=== PATIENT | male | born 1980 | race African-American/Black ===

== ENCOUNTER → 2019-10-05 | Emergency (ER) | payer SELFPAY ==
[~2019-10-05] VITALS: Ht 175 cm; Wt 76.1 kg
[~2019-10-05] MED LIST: DOXY100T2 PO; DOXYCYCLINE 100 MG (VIBRAMYCIN) TABLET PO ONE; KETOROLAC 30 MG/ML VIAL IM ONE; KETOROLAC 30 MG/ML VIAL ONE; LIDOCAINE 1% INJ 20 ML 20 ML VIAL INJ ONE; cefTRIAXone 1,000 MG/2.86 ml vial (IM ONLY) IM ONE
--- OUTSIDE RECORDS SUMMARY | 2019-10-05 23:02 | XMS REPORT ---
Author Author Nuno MCDANIEL Organization [facility] Address [address] [place] [address] Care Team Providers Care Hydro Plant Technician Name Role Phone BASSEM MCDANIEL Unavailable PROBLEMS Type Condition ICD9-CM Code HRY28-SW Code Onset Dates Condition S tatus SNOMED Code Problem Asthma, unspecified, unspecified status 493.90 Active 42524773 Problem Essential hypertension, benign 401.1 Active 9481817 Problem Mood disorder F39 Active 054811 05 Problem Essential (primary) hypertension I10 Active 96026039 Problem Allergic rhinitis, cause unspecified 477.9 Active 12514537 Problem Anxiety state, unspecified 300.00 Act katharine 783800214 Problem Unspecified episodic mood disorder 296.90 Active 880958059 Problem Allergic rhinitis, unspecified J30.9 Active 15282797 ALLERGIES No Information ENCOUNTERS Encounter Location Date Diagnosis [facility] [address] [address] May, Mood disorder F39 [facility] [address], [place] [address] 57 19 Apr, 2018 Bronchitis J40 [facility] [address] [address] 14 Apr, 2018 Mood disorder F39 [facility] [address] [address] Mar, Pain R52 [facility] [address] [address] Mar, Pain R52 [facility] [address] [address] Mar, [facility] [address] [address] Feb, [facility] [address] [address] Feb, Mood disorder F39 [facility] [address] [id number] [place] [address] Feb, Pain R52 [facility] [address] [id number] [place] [address] Feb, Mood disorder F39 [facility] [address] [id number] [place] [address] Dec, Mood disorder F39 [facility] [id number] [place] [address] Dec, Mood disorder F39 [facility] [id number] [place] [address] Dec, Essential (primary) hypertension I10 [facility] [id number] [place] [address] Dec, Mood disorder F39 [facility] [id number] [place] [address] Nov, [facility] [address] [id number] [place] [address] Nov, Allergic rhinitis, unspecified J30.9 [facility] [id number] [place] [address] 14 Jun, 2014 [facility] [id number] [place] [address] Jun, [facility] [id number] [place] [address] Nov, [facility] [address] [id number] [place] [address] 09 Nov, 2013 [facility] [address], [place] [id number] 57 Nov, [facility] [id number] [place] [address] Nov, [facility] [id number] [place] [address] July, [facility] [id number] [place] [address] July, [facility] [address], [place] [id number] 57 Jun, [facility] [address] [id number] [place] [address] Jun, [facility] [address] [id number] [place] [address] Feb, [facility] [id number] [place] [address] Feb, [facility] [address] [id number] [place] [address] Feb, [facility] [id number] [place] [address] Feb, [facility] [address] [id number] [place] [address] Jan, [facility] [address] [id number] [place] [address] Jan, [facility] [address], [place] [id number] 57 Dec, [facility] [id number] [place] [address] Dec, IMMUNIZATIONS No Known Immunizations SOCIAL HISTORY Never Assessed REASON FOR VISIT PLAN OF CARE VITAL SIGNS Height 68 in 2013-06-21 Weight 181 lbs 2013-06-21 Temperature 97.3 degrees Fahrenheit 2013-06-21 Heart Rate 60 bpm 2013-06-21 Respiratory Rate 16 2013-06-21 Blood pressure systolic 122 mmHg 2013-06-21 Blood pressure diastolic 80 mmHg 2013-06-21 MEDICATIONS Unknown Medications RESULTS No Results PROCEDURES No Known procedures INSTRUCTIONS MEDICATIONS ADMINISTERED No Known Medications
--- OUTSIDE RECORDS SUMMARY | 2019-10-05 23:02 | XMS REPORT ---
Author Author Nuno MCDANIEL Organization [facility] Address [address] [place] [address] Care Team Providers Care Reproductive Surgeon Name Role Phone BASSEM MCDANIEL Unavailable PROBLEMS Type Condition ICD9-CM Code AOS58-BD Code Onset Dates Condition S tatus SNOMED Code Problem Asthma, unspecified, unspecified status 493.90 Active 33593319 Problem Essential hypertension, benign 401.1 Active 9926214 Problem Mood disorder F39 Active 667312 05 Problem Essential (primary) hypertension I10 Active 51040346 Problem Allergic rhinitis, cause unspecified 477.9 Active 15705416 Problem Anxiety state, unspecified 300.00 Act katharine 299599029 Problem Unspecified episodic mood disorder 296.90 Active 143401922 Problem Allergic rhinitis, unspecified J30.9 Active 62240937 ALLERGIES No Information ENCOUNTERS Encounter Location Date Diagnosis [facility] [address] [facility] [id number] [address] [place] [address] May, Mood disorder F39 [facility] [address] [place], [place] [id number] 57 19 Apr, 2018 Bronchitis J40 [facility] [address] [facility] [id number] [address] [place] [phone] 14 Apr, 2018 Mood disorder F39 [facility] [address] [facility] [id number] [address] [place] [phone] Mar, Pain R52 [facility] [address] [facility] [id number] [address] [place] [address] Mar, Pain R52 [facility] [address] [facility] [id number] [address] [place] [phone] Mar, [facility] [address] [facility] [id number] [address] [place] [phone] Feb, [facility] [address] [id number] [address] [place] [phone] Feb, Mood disorder F39 [facility] [address] [id number] [address] [place] [phone] Feb, Pain R52 [facility] [address] [id number] [address] [place] [phone] Feb, Mood disorder F39 [facility] [address] [id number] [address] [place] [phone] Dec, Mood disorder F39 [facility] [address] [facility] [id number] [address] [place] [phone] Dec, Mood disorder F39 [facility] [address] [facility] [id number] [address] [place] [phone] Dec, Essential (primary) hyperten shelli I10 [facility] [address] [facility] [id number] [address] [place] [phone] Dec, Mood disorder F39 [facility] [address] [id number] [address] [place] [phone] Nov, [facility] [address] [facility] [id number] [address] [place] [phone] Nov, Allergic rhinitis, unspecifi ed J30.9 [facility] [address] [facility] [id number] [address] [place] [phone] 14 Jun, 2014 [facility] [address] [facility] [id number] [address] [place] [phone] 13 Jun, 2014 [facility] [address] [facility] [id number] [address] [place] [phone] Nov, [facility] [address] [facility] [id number] [address] [place] [phone] Nov, [facility] [address], [place] [id number] 57 Nov, [facility] [address] [facility] [id number] [address] [place] [phone] Nov, [facility] [address] [id number] [address] [place] [phone] July, [facility] [address] [id number] [address] [place] [phone] July, [facility] [address], [place] [id number] 57 Jun, [facility] [address] [id number] [address] [place] [phone] Jun, [facility] [address] [id number] [address] [place] [phone] Feb, [facility] [address] [id number] [address] [place] [phone] Feb, [facility] [address] [id number] [address] [place] [phone] Feb, [facility] [address] [id number] [address] [place] [phone] Feb, [facility] [address] [id number] [address] [place] [phone] Jan, [facility] [address] [id number] [address] [place] [phone] Jan, [facility] [address], [place] [id number] 57 Dec, [facility] [address] [id number] [address] [place] [phone] Dec, IMMUNIZATIONS No Known Immunizations SOCIAL HISTORY Never Assessed REASON FOR VISIT PLAN OF CARE VITAL SIGNS Height 68 in 2013-11-08 Weight 158 lbs 2013-11-08 Temperature 96.9 degrees Fahrenheit 2013-11-08 Heart Rate 60 bpm 2013-11-08 Respiratory Rate 16 2013-11-08 Blood pressure systolic 144 mmHg 2013-11-08 Blood pressure diastolic 90 mmHg 2013-11-08 MEDICATIONS Unknown Medications RESULTS No Results PROCEDURES No Known procedures INSTRUCTIONS MEDICATIONS ADMINISTERED No Known Medications
--- OUTSIDE RECORDS SUMMARY | 2019-10-05 23:02 | XMS REPORT ---
Author Author Nuno MCDANIEL Organization [facility] Address [address] [place] [address] Care Team Providers Care Clerk General Office Name Role Phone BASSEM MCDANIEL Unavailable PROBLEMS Type Condition ICD9-CM Code ZGI29-AC Code Onset Dates Condition S tatus SNOMED Code Problem Essential hypertension, benign 401.1 Active 9447274 Problem Asthma, unspecified, unspecified status 493.90 Active 87952633 Problem Essential (primary) hypertension I10 Active 37604278 Problem Mood disorder F39 Active 567702 05 Problem Anxiety state, unspecified 300.00 Act katharine 511220989 Problem Allergic rhinitis, cause unspecified 477.9 Active 12701922 Problem Allergic rhinitis, unspecified J30.9 Active 07343670 Problem Unspecified episodic mood disorder 296.90 Active 769091487 ALLERGIES No Known Allergies ENCOUNTERS Encounter Location Date Diagnosis [facility] [address] [facility] [id number] [address] [place] [phone] Feb, Pain R52 [facility] [address] [facility] [id number] [address] [place] [phone] Feb, Mood disorder F39 [facility] [address] [facility] [id number] [address] [place] [phone] Dec, Mood disorder F39 [facility] [address] [id number] [address] [place] [phone] Dec, Mood disorder F39 [facility] [address] [facility] [id number] [address] [place] [phone] Dec, Essential (primary) hyperten shelli I10 [facility] [address] [facility] [id number] [address] [place] [phone] Dec, Mood disorder F39 [facility] [address] [facility] [id number] [address] [place] [address] Nov, [facility] [address] [id number] [address] [place] [phone] 11 Nov, 2017 Allergic rhinitis, unspecifi ed J30.9 [facility] [address] [id number] [address] [place] [address], [place] [address] 14 Jun, 2014 [facility] [address] [id number] [address] [place] [phone] Jun, [facility] [address] [id number] [address] [place] [phone] 09 Nov, 2013 [facility] [address] [id number] [address] [place] [phone] 09 Nov, 2013 [facility] [address] [place], [place] [id number] 57 Nov, [facility] [address] [id number] [address] [place] [phone] Nov, [facility] [address] [id number] [address] [place] [phone] July, [facility] [address] [id number] [address] [place] [phone] July, [facility] [address] [place], [place] [id number] 57 15 Jun, 2013 [facility] [address] [id number] [address] [place] [phone] Jun, [facility] [address] [id number] [address] [place] [phone] Feb, [facility] [address] [id number] [address] [place] [phone] Feb, [facility] [address] [id number] [address] [place] [phone] Feb, [facility] [address] [id number] [address] [place] [phone] Feb, [facility] [address] [id number] [address] [place] [phone] Jan, [facility] [address] [facility] [id number] [address] [place] [phone] Jan, [facility] [address] [place], [place] [id number] 57 Dec, [facility] [address] [facility] [id number] [address] [place] [address] Dec, IMMUNIZATIONS No Known Immunizations SOCIAL HISTORY Never Assessed REASON FOR VISIT Usp RX PLAN OF CARE VITAL SIGNS MEDICATIONS Medication Instructions Dosage Frequency Start Date End Date Duration S yesenia Trazodone HCl 150 MG Orally at bedtime 1 tablet at bedtime 2 5 Nov, 2017 30 day(s) Active RESULTS No Results PROCEDURES No Known procedures INSTRUCTIONS MEDICATIONS ADMINISTERED No Known Medications
--- OUTSIDE RECORDS SUMMARY | 2019-10-05 23:02 | XMS REPORT ---
Author Author Nuno MCDANIEL Organization [facility] Address [address] [place] [address] Care Team Providers Care Farm Demonstrator Name Role Phone BASSEM MCDANIEL Unavailable PROBLEMS Type Condition ICD9-CM Code HCW50-YT Code Onset Dates Condition S tatus SNOMED Code Problem Asthma, unspecified, unspecified status 493.90 Active 68821573 Problem Essential hypertension, benign 401.1 Active 5647784 Problem Mood disorder F39 Active 198450 05 Problem Essential (primary) hypertension I10 Active 89459869 Problem Allergic rhinitis, cause unspecified 477.9 Active 26284769 Problem Anxiety state, unspecified 300.00 Act katharine 364686459 Problem Unspecified episodic mood disorder 296.90 Active 192465783 Problem Allergic rhinitis, unspecified J30.9 Active 74892613 ALLERGIES No Information ENCOUNTERS Encounter Location Date Diagnosis [facility] [address] [facility] [id number] [address] [place] [phone] May, Mood disorder F39 [facility] [address] [place], [place] [id number] 57 19 Apr, 2018 Bronchitis J40 [facility] [address] [facility] [id number] [address] [place] [phone] 14 Apr, 2018 Mood disorder F39 [facility] [address] [facility] [id number] [address] [place] [phone] Mar, Pain R52 [facility] [address] [facility] [id number] [address] [place] [phone] Mar, Pain R52 [facility] [address] [facility] [id number] [address] [place] [phone] Mar, [facility] [address] [facility] [id number] [address] [place] [phone] Feb, [facility] [address] [id number] [address] [place] [phone] Feb, Mood disorder F39 [facility] [address] [id number] [address] [place] [phone] Feb, Pain R52 [facility] [address] [id number] [address] [place] [phone] Feb, Mood disorder F39 [facility] [address] [id number] [address] [place] [phone] Dec, Mood disorder F39 [facility] [address] [facility] [id number] [address] [place] [phone] Dec, Mood disorder F39 [facility] [address] [facility] [id number] [address] [place] [phone] Dec, Essential (primary) hyperten shelli I10 [facility] [address] [facility] [id number] [address] [place] [phone] Dec, Mood disorder F39 [facility] [address] [id number] [address] [place] [phone] Nov, [facility] [address] [facility] [id number] [address] [place] [phone] Nov, Allergic rhinitis, unspecifi ed J30.9 [facility] [address] [facility] [id number] [address] [place] [phone] 14 Jun, 2014 [facility] [address] [facility] [id number] [address] [place] [phone] 13 Jun, 2014 [facility] [address] [facility] [id number] [address] [place] [phone] Nov, [facility] [address] [facility] [id number] [address] [place] [phone] Nov, [facility] [address] [place], [place] [id number] 57 Nov, [facility] [address] [facility] [id number] [address] [place] [phone] Nov, [facility] [address] [id number] [address] [place] [phone] July, [facility] [address] [id number] [address] [place] [phone] July, [facility] [address] [place] [id number] 57 Jun, [facility] [address] [id number] [address] [place] [phone] Jun, [facility] [address] [id number] [address] [place] [phone] Feb, [facility] [address] [id number] [address] [place] [phone] Feb, [facility] [address] [id number] [address] [place] [phone] Feb, [facility] [address] [id number] [address] [place] [phone] Feb, [facility] [address] [id number] [address] [place] [phone] Jan, [facility] [address] [id number] [address] [place] [phone] Jan, [facility] [address] [facility] [place] [id number] 57 Dec, [facility] [address] [id number] [address] [place] [phone] Dec, IMMUNIZATIONS No Known Immunizations SOCIAL HISTORY Never Assessed REASON FOR VISIT PLAN OF CARE VITAL SIGNS MEDICATIONS Unknown Medications RESULTS No Results PROCEDURES No Known procedures INSTRUCTIONS MEDICATIONS ADMINISTERED No Known Medications
--- OUTSIDE RECORDS SUMMARY | 2019-10-05 23:02 | XMS REPORT ---
Author Author Nuno MCDANIEL Organization [facility] Address [address] [place] [address] Care Team Providers Care Restaurant And Bar Manager Name Role Phone BASSEM MCDANIEL Unavailable PROBLEMS Type Condition ICD9-CM Code [id number] Code Onset Dates Condition S tatus SNOMED Code Problem Asthma, unspecified, unspecified status 493.90 Active 88919491 Problem Essential hypertension, benign 401.1 Active 0940115 Problem Mood disorder F39 Active 008435 05 Problem Essential (primary) hypertension I10 Active 01554074 Problem Allergic rhinitis, cause unspecified 477.9 Active 12537100 Problem Anxiety state, unspecified 300.00 Act katharine [id number] Problem Unspecified episodic mood disorder 296.90 Active 716966081 Problem Allergic rhinitis, unspecified J30.9 Active 70698938 ALLERGIES No Information ENCOUNTERS Encounter Location Date Diagnosis [facility] [address] [id number] [address] [place] [phone] May, Mood disorder F39 [facility] [address] [place], [place] [id number] 57 19 Apr, 2018 Bronchitis J40 [facility] [address] [id number] [address] [place] [phone] 14 Apr, 2018 Mood disorder F39 [facility] [address] [id number] [address] [place] [phone] Mar, Pain R52 [facility] [address] [id number] [address] [place] [phone] Mar, Pain R52 [facility] [address] [id number] [address] [place] [phone] Mar, [facility] [address] [id number] [address] [place] [address] Feb, [facility] [address] [id number] [address] [place] [phone] Feb, Mood disorder F39 [facility] [address] [id number] [address] [place] [phone] Feb, Pain R52 [facility] [address] [id number] [address] [place] [phone] Feb, Mood disorder F39 [facility] [address] [id number] [address] [place] [phone] Dec, Mood disorder F39 [facility] [address] [id number] [address] [place] [phone] Dec, Mood disorder F39 [facility] [address] [id number] [address] [place] [phone] Dec, Essential (primary) hyperten shelli I10 [facility] [address] [id number] [address] [place] [phone] Dec, Mood disorder F39 [facility] [address] [id number] [address] [place] [id number] Nov, [facility] [address] [id number] [address] [place] [phone] Nov, Allergic rhinitis, unspecifi ed J30.9 [facility] [address] [id number] [address] [place] [address] 14 Jun, 2014 [facility] [address] [id number] [address] [place] [phone] 13 Jun, 2014 [facility] [address] [id number] [address] [place] [phone] Nov, [facility] [address] [id number] [address] [place] [phone] Nov, [facility] [address], [place] [id number] 57 Nov, [facility] [address] [id number] [address] [place] [address] Nov, [facility] [address] [id number] [address] [place] [phone] July, [facility] [address] [id number] [address] [place] [phone] July, [facility] [address] [place] [id number] 57 Jun, [facility] [address] [id number] [address] [place] [phone] Jun, [facility] [address] [id number] [address] [place] [phone] Feb, [facility] [address] [id number] [address] [place] [phone] Feb, [facility] [address] [id number] [address] [place] [phone] Feb, [facility] [address] [id number] [address] [place] [phone] Feb, [facility] [address] [id number] [address] [place] [phone] Jan, [facility] [address] [id number] [address] [place] [phone] Jan, [facility] [address] [facility] [id number] 57 Dec, [facility] [address] [id number] [address] [place] [phone] Dec, IMMUNIZATIONS No Known Immunizations SOCIAL HISTORY Never Assessed REASON FOR VISIT PLAN OF CARE VITAL SIGNS MEDICATIONS Unknown Medications RESULTS No Results PROCEDURES No Known procedures INSTRUCTIONS MEDICATIONS ADMINISTERED No Known Medications
--- OUTSIDE RECORDS SUMMARY | 2019-10-05 23:02 | XMS REPORT ---
Author Author Nuno MCDANIEL Organization [facility] Address [address] [place] [address] Care Team Providers Care Medical Device Assembler Name Role Phone BASSEM MCDANIEL Unavailable PROBLEMS Type Condition ICD9-CM Code [id number] Code Onset Dates Condition S tatus SNOMED Code Problem Essential hypertension, benign 401.1 Active 9492034 Problem Asthma, unspecified, unspecified status 493.90 Active 39150567 Problem Essential (primary) hypertension I10 Active 07328083 Problem Mood disorder F39 Active 705746 05 Problem Anxiety state, unspecified 300.00 Act katharine 034116322 Problem Allergic rhinitis, cause unspecified 477.9 Active 90683997 Problem Allergic rhinitis, unspecified J30.9 Active 67573895 Problem Unspecified episodic mood disorder 296.90 Active 434813092 ALLERGIES No Known Allergies ENCOUNTERS Encounter Location Date Diagnosis [facility] [address] [facility] [id number] [address] [place] [phone] Feb, Pain R52 [facility] [address] [facility] [id number] [address] [place] [phone] Feb, Mood disorder F39 [facility] [address] [facility] [id number] [address] [place] [phone] Dec, Mood disorder F39 [facility] [address] [id number] [address] [place] [phone] Dec, Mood disorder F39 [facility] [address] [facility] [id number] [address] [place] [phone] Dec, Essential (primary) hyperten shelli I10 [facility] [address] [facility] [id number] [address] [place] [phone] Dec, Mood disorder F39 [facility] [address] [facility] [id number] [address] [place] [phone] Nov, [facility] [address] [id number] [address] [place] [phone] 11 Nov, 2017 Allergic rhinitis, unspecifi ed J30.9 [facility] [address] [id number] [address] [place] [address], [place] [phone] 14 Jun, 2014 [facility] [address] [id number] [address] [place] [phone] Jun, [facility] [address] [id number] [address] [place] [phone] 09 Nov, 2013 [facility] [address] [id number] [address] [place] [phone] 09 Nov, 2013 [facility] [address] [place], [place] [id number] 57 Nov, [facility] [address] [id number] [address] [place] [phone] Nov, [facility] [address] [id number] [address] [place] [phone] July, [facility] [address] [id number] [address] [place] [phone] July, [facility] [address] [place], [place] [id number] 57 15 Jun, 2013 [facility] [address] [id number] [address] [place] [phone] Jun, [facility] [address] [id number] [address] [place] [phone] Feb, [facility] [address] [id number] [address] [place] [phone] Feb, [facility] [address] [id number] [address] [place] [phone] Feb, [facility] [address] [id number] [address] [place] [phone] Feb, [facility] [address] [id number] [address] [place] [phone] Jan, [facility] [address] [facility] [id number] [address] [place] [phone] Jan, [facility] [address] [place], [place] [id number] 57 Dec, [facility] [address] [facility] [id number] [address] [place] [phone] Dec, IMMUNIZATIONS No Known Immunizations SOCIAL HISTORY Never Assessed REASON FOR VISIT [facility] rx PLAN OF CARE VITAL SIGNS MEDICATIONS Medication Instructions Dosage Frequency Start Date End Date Duration S yesenia Naproxen 500 MG Orally 2 times a day 1 tablet with food or milk as needed 12h 11 Feb, 2018 Active RESULTS No Results PROCEDURES No Known procedures INSTRUCTIONS MEDICATIONS ADMINISTERED No Known Medications
--- OUTSIDE RECORDS SUMMARY | 2019-10-05 23:02 | XMS REPORT ---
Author Author Nuno Busby Doctor Organization [facility] Address Unknown Phone Unavailable Care Team Providers Care Near East Archeology Professor Name Role Phone Migration, Doctor Unavailable Unavailable PROBLEMS Type Condition ICD9-CM Code FNF21-CP Code Onset Dates Condition S tatus SNOMED Code Problem Asthma, unspecified, unspecified status 493.90 Active 58210319 Problem Essential hypertension, benign 401.1 Active 6686036 Problem Mood disorder F39 Active 352908 05 Problem Essential (primary) hypertension I10 Active 06260371 Problem Allergic rhinitis, cause unspecified 477.9 Active 56614306 Problem Anxiety state, unspecified 300.00 Act katharine 488819452 Problem Unspecified episodic mood disorder 296.90 Active 958849669 Problem Allergic rhinitis, unspecified J30.9 Active 42846236 ALLERGIES No Information ENCOUNTERS Encounter Location Date Diagnosis [facility] [address] [id number] [address] [place] [phone] May, Mood disorder F39 [facility] [address] [place], [place] [id number] 57 19 Apr, 2018 Bronchitis J40 [facility] [address] [id number] [address] [place] [phone] 14 Apr, 2018 Mood disorder F39 [facility] [address] [facility] [id number] [address] [place] [phone] Mar, Pain R52 [facility] [address] [facility] [id number] [address] [place] [phone] Mar, Pain R52 [facility] [address] [facility] [id number] [address] [place] [phone] Mar, [facility] [address] [facility] [id number] [address] [place] [phone] Feb, [facility] [address] [facility] [id number] [address] [place] [phone] Feb, Mood disorder F39 [facility] [address] [id number] [address] [place] [phone] Feb, Pain R52 [facility] [address] [id number] [address] [place] [phone] Feb, Mood disorder F39 [facility] [address] [id number] [address] [place] [phone] Dec, Mood disorder F39 [facility] [address] [id number] [address] [place] [phone] Dec, Mood disorder F39 [facility] [address] [id number] [address] [place] [phone] Dec, Essential (primary) hyperten shelli I10 [facility] [address] [facility] [id number] [address] [place] [phone] Dec, Mood disorder F39 [facility] [address] [id number] [address] [place] [phone] Nov, [facility] [address] [facility] [id number] [address] [place] [phone] Nov, Allergic rhinitis, unspecifi ed J30.9 [facility] [address] [facility] [id number] [address] [place] [phone] 14 Jun, 2014 [facility] [address] [facility] [id number] [address] [place] [phone] 13 Jun, 2014 [facility] [address] [facility] [id number] [address] [place] [phone] 09 Nov, 2013 [facility] [address] [facility] [id number] [address] [place] [phone] 09 Nov, 2013 [facility] [address] [place], [place] [id number] 57 02 Nov, 2013 [facility] [address] [facility] [id number] [address] [place] [phone] Nov, [facility] [address] [facility] [id number] [address] [place] [phone] July, [facility] [address] [id number] [address] [place] [phone] July, [facility] [address] [place] [id number] 57 Jun, [facility] [address] [id number] [address] [place] [phone] Jun, [facility] [address] [id number] [address] [place] [phone] Feb, [facility] [address] [id number] [address] [place] [phone] Feb, [facility] [address] [id number] [address] [place] [phone] Feb, [facility] [address] [id number] [address] [place] [phone] Feb, [facility] [address] [id number] [address] [place] [phone] Jan, [facility] [address] [id number] [address] [place] [phone] Jan, [facility] [address] [place] [place] [id number] 57 Dec, [facility] [address] [id number] [address] [place] [phone] Dec, IMMUNIZATIONS No Known Immunizations SOCIAL HISTORY Never Assessed REASON FOR VISIT [facility] [place] OF CARE VITAL SIGNS MEDICATIONS Medication Instructions Dosage Frequency Start Date End Date Duration S kayley Loratadine 10 mg take 1 tablet by Oral route 1 time pe r day take at hs Nov, Active Flonase 50 mcg/actuation 1 sprays by Amadou al route 2 times per day in each nostril Nov, Active Albuterol Sulfate 90 mcg/actuation 2 puf fs by Inhalation route every 6 hours as needed PRN cough or wheezing Nov, Active Lisinopril 10 mg take 1 tablet by Oral route 1 time pe r day Take in am Nov, Active BuPROPion HCl 150 mg take 1 tablet (150 mg) by oral ro emmonak 2 times per day Nov, Active PredniSONE 20 mg 2 tablet by Oral route 1 time per day for 5 day(s) Jan, Active RESULTS No Results PROCEDURES No Known procedures INSTRUCTIONS MEDICATIONS ADMINISTERED No Known Medications
--- OUTSIDE RECORDS SUMMARY | 2019-10-05 23:02 | XMS REPORT ---
Author Author Nuno MCDANIEL Organization [facility] Address [address] [place] [address] Care Team Providers Care Hadoop Java Developer Name Role Phone BASSEM MCDANIEL Unavailable PROBLEMS Type Condition ICD9-CM Code VHJ15-OC Code Onset Dates Condition S tatus SNOMED Code Problem Essential hypertension, benign 401.1 Active 2434056 Problem Asthma, unspecified, unspecified status 493.90 Active 05073661 Problem Essential (primary) hypertension I10 Active 94289020 Problem Mood disorder F39 Active 340698 05 Problem Anxiety state, unspecified 300.00 Act katharine 733873212 Problem Allergic rhinitis, cause unspecified 477.9 Active 69452955 Problem Allergic rhinitis, unspecified J30.9 Active 88647056 Problem Unspecified episodic mood disorder 296.90 Active 942670379 ALLERGIES No Known Allergies ENCOUNTERS Encounter Location Date Diagnosis [facility] [address] [facility] [id number] [address] [place] [phone] Feb, Mood disorder F39 [facility] [address] [facility] [id number] [address] [place] [phone] Feb, Pain R52 [facility] [address] [facility] [id number] [address] [place] [phone] Feb, Mood disorder F39 [facility] [address] [facility] [id number] [address] [place] [phone] Dec, Mood disorder F39 [facility] [address] [facility] [id number] [address] [place] [phone] Dec, Mood disorder F39 [facility] [address] [facility] [id number] [address] [place] [phone] Dec, Essential (primary) hyperten shelli I10 [facility] [address] [facility] [id number] [address] [place] [phone] 09 Dec, 2017 Mood disorder F39 [facility] [address] [id number] [address] [place] [address], [place] [address] 25 Nov, 2017 [facility] [address] [id number] [address] [place] [phone] 11 Nov, 2017 Allergic rhinitis, unspecifi ed J30.9 [facility] [address] [id number] [address] [place] [phone] 14 Jun, 2014 [facility] [place] [address] [id number] [address] [place] [phone] Jun, [facility] [place] [address] [id number] [address] [place] [phone] 09 Nov, 2013 [facility] [place] [address] [id number] [address] [place] [phone] 09 Nov, 2013 [facility] [address], [place] [id number] 57 02 Nov, 2013 [facility] [address] [id number] [address] [place] [phone] Nov, [facility] [place] [address] [id number] [address] [place] [phone] July, [facility] [place] [address] [id number] [address] [place] [phone] July, [facility] [address] [place], [place] [id number] 57 15 Jun, 2013 [facility] [place] [address] [id number] [address] [place] [phone] Jun, [facility] [place] [address] [id number] [address] [place] [address], [place] [address] Feb, [facility] [place] [address] [id number] [address] [place] [phone] Feb, [facility] [address] [id number] [address] [place] [phone] Feb, [facility] [place] [address] [id number] [address] [place] [phone] Feb, [facility] [address] [facility] [id number] [address] [place] [phone] Jan, [facility] [address] [facility] [id number] [address] [place] [phone] Jan, [facility] [address] [place] [address] 57 Dec, [facility] [address] [facility] [id number] [address] [place] [phone] Dec, IMMUNIZATIONS No Known Immunizations SOCIAL HISTORY Never Assessed REASON FOR VISIT Custodial PLAN OF CARE VITAL SIGNS MEDICATIONS Medication Instructions Dosage Frequency Start Date End Date Duration S yesenia BusPIRone HCl 15 MG Orally Twice a day 1 tablet 12h Dec, Active Flonase 50 MCG/ACT Nasally Once a day 1 spray in each nostril 24h Nov, 30 day(s) Active RESULTS No Results PROCEDURES No Known procedures INSTRUCTIONS MEDICATIONS ADMINISTERED No Known Medications
--- OUTSIDE RECORDS SUMMARY | 2019-10-05 23:02 | XMS REPORT ---
Author Author Nuno MCDANIEL Organization [facility] Address [address] [place] [address] Care Team Providers Care Financial Sales Consultant Name Role Phone BASSEM MCDANIEL Unavailable PROBLEMS Type Condition ICD9-CM Code [id number] Code Onset Dates Condition S tatus SNOMED Code Problem Essential hypertension, benign 401.1 Active 8874935 Problem Asthma, unspecified, unspecified status 493.90 Active 48246484 Problem Essential (primary) hypertension I10 Active 82744622 Problem Mood disorder F39 Active 233054 05 Problem Anxiety state, unspecified 300.00 Act katharine 082529334 Problem Allergic rhinitis, cause unspecified 477.9 Active 05677048 Problem Allergic rhinitis, unspecified J30.9 Active 37471540 Problem Unspecified episodic mood disorder 296.90 Active 518858383 ALLERGIES No Known Allergies ENCOUNTERS Encounter Location Date Diagnosis [place] [id number] [place] [id number] [address] [place] [address] Dec, Mood disorder F39 [facility] [address] [id number] [address] [place] [address] Dec, Essential (primary) hyperten shelli I10 [facility] [address] [facility] [id number] [address] [place] [address] Dec, Mood disorder F39 [facility] [address] [facility] [id number] [address] [place] [address] Nov, [facility] [address] [id number] [address] [place] [address] Nov, Allergic rhinitis, unspecifi ed J30.9 [facility] [address] [facility] [id number] [address] [place] [address] 14 Jun, 2014 [facility] [address] [id number] [address] [place] [address] Jun, [facility] [address] [id number] [address] [place] [address], [place] [address] Nov, [facility] [address] [id number] [address] [place] [address] Nov, [facility] [address] [place] [place], [place] [id number] 57 Nov, [facility] [address] [id number] [address] [place] [address] Nov, [facility] [address] [id number] [address] [place] [address] July, [facility] [address] [id number] [address] [place] [address] July, [facility] [address] [place], [place] [id number] 57 Jun, [facility] [address] [id number] [address] [place] [address] Jun, [facility] [address] [id number] [address] [place] [address] Feb, [facility] [address] [id number] [address] [place] [address] Feb, [facility] [address] [id number] [address] [place] [address] Feb, [facility] [address] [id number] [address] [place] [address] Feb, [facility] [address] [id number] [address] [place] [address] Jan, [facility] [address] [id number] [address] [place] [address] Jan, [facility] [address] [place], [place] [id number] 57 Dec, [facility] [address] [id number] [address] [place] [address] Dec, IMMUNIZATIONS No Known Immunizations SOCIAL HISTORY Never Assessed REASON FOR VISIT [facility] PLAN OF CARE VITAL SIGNS MEDICATIONS Medication Instructions Dosage Frequency Start Date End Date Duration Wilfredo patterson BusPIRone HCl 5 mg Orally Twice a day 1 tablet 12h Dec, Active RESULTS No Results PROCEDURES No Known procedures INSTRUCTIONS MEDICATIONS ADMINISTERED No Known Medications
--- OUTSIDE RECORDS SUMMARY | 2019-10-05 23:02 | XMS REPORT ---
Author Author Nuno Busby Doctor Organization [facility] Address Unknown Phone Unavailable Care Team Providers Care Telemarketer Name Role Phone Migration, Doctor Unavailable Unavailable PROBLEMS Type Condition ICD9-CM Code EVU40-JY Code Onset Dates Condition S tatus SNOMED Code Problem Asthma, unspecified, unspecified status 493.90 Active 44756248 Problem Essential hypertension, benign 401.1 Active 6698305 Problem Mood disorder F39 Active 004591 05 Problem Essential (primary) hypertension I10 Active 53865569 Problem Allergic rhinitis, cause unspecified 477.9 Active 33256609 Problem Anxiety state, unspecified 300.00 Act katharine 302669178 Problem Unspecified episodic mood disorder 296.90 Active 892668376 Problem Allergic rhinitis, unspecified J30.9 Active 54329199 ALLERGIES No Information ENCOUNTERS Encounter Location Date Diagnosis [facility] [address] [id number] [address] [place] [address] May, Mood disorder F39 [facility] [address] [place], [place] [id number] 57 19 Apr, 2018 Bronchitis J40 [facility] [address] [id number] [address] [place] [address] 14 Apr, 2018 Mood disorder F39 [facility] [address] [facility] [id number] [address] [place] [address] Mar, Pain R52 [facility] [address] [facility] [id number] [address] [place] [phone] Mar, Pain R52 [facility] [address] [facility] [id number] [address] [place] [address] Mar, [facility] [address] [facility] [id number] [address] [place] [address] Feb, [facility] [address] [facility] [id number] [address] [place] [address] Feb, Mood disorder F39 [facility] [address] [id number] [address] [place] [address] Feb, Pain R52 [facility] [address] [id number] [address] [place] [address] Feb, Mood disorder F39 [facility] [address] [id number] [address] [place] [phone] Dec, Mood disorder F39 [facility] [address] [id number] [address] [place] [address] Dec, Mood disorder F39 [facility] [address] [id number] [address] [place] [address] Dec, Essential (primary) hyperten shelli I10 [facility] [address] [facility] [id number] [address] [place] [address] Dec, Mood disorder F39 [facility] [address] [id number] [address] [place] [phone] Nov, [facility] [address] [facility] [id number] [address] [place] [address] Nov, Allergic rhinitis, unspecifi ed J30.9 [facility] [address] [facility] [id number] [address] [place] [address] 14 Jun, 2014 [facility] [address] [facility] [id number] [address] [place] [address] 13 Jun, 2014 [facility] [address] [facility] [id number] [address] [place] [phone] 09 Nov, 2013 [facility] [address] [facility] [id number] [address] [place] [phone] 09 Nov, 2013 [facility] [address] [place], [place] [id number] 57 02 Nov, 2013 [facility] [address] [facility] [id number] [address] [place] [address] Nov, [facility] [address] [facility] [id number] [address] [place] [address] July, [facility] [address] [id number] [address] [place] [phone] July, [facility] [address] [place] [id number] 57 Jun, [facility] [address] [id number] [address] [place] [phone] Jun, [facility] [address] [id number] [address] [place] [phone] Feb, [facility] [address] [id number] [address] [place] [phone] Feb, [facility] [address] [id number] [address] [place] [phone] Feb, [facility] [address] [id number] [address] [place] [phone] Feb, [facility] [address] [id number] [address] [place] [phone] Jan, [facility] [address] [id number] [address] [place] [phone] Jan, [facility] [address] [place] [id number] 57 Dec, [facility] [address] [id number] [address] [place] [address] Dec, IMMUNIZATIONS No Known Immunizations SOCIAL HISTORY Never Assessed REASON FOR VISIT [facility] PLAN OF CARE VITAL SIGNS MEDICATIONS Unknown Medications RESULTS No Results PROCEDURES No Known procedures INSTRUCTIONS MEDICATIONS ADMINISTERED No Known Medications
--- OUTSIDE RECORDS SUMMARY | 2019-10-05 23:02 | XMS REPORT ---
Author Author Nuno MCDANIEL Organization [facility] Address [address] [place] [address] Care Team Providers Care Crt Name Role Phone BASSEM MCDANIEL Unavailable PROBLEMS Type Condition ICD9-CM Code ZBJ15-VX Code Onset Dates Condition S tatus SNOMED Code Problem Asthma, unspecified, unspecified status 493.90 Active 09056623 Problem Essential hypertension, benign 401.1 Active 6017055 Problem Mood disorder F39 Active 611393 05 Problem Essential (primary) hypertension I10 Active 04399398 Problem Allergic rhinitis, cause unspecified 477.9 Active 46122354 Problem Anxiety state, unspecified 300.00 Act katharine 827727532 Problem Unspecified episodic mood disorder 296.90 Active 718311517 Problem Allergic rhinitis, unspecified J30.9 Active 01585468 ALLERGIES No Information ENCOUNTERS Encounter Location Date Diagnosis [facility] [address] [address] May, Mood disorder F39 [facility] [address] [place], [place] [id number] 57 19 Apr, 2018 Bronchitis J40 [facility] [address] [address] 14 Apr, 2018 Mood disorder F39 [facility] [address] [address] Mar, Pain R52 [facility] [address] [address] Mar, Pain R52 [facility] [address] [address] Mar, [facility] [address] [address] Feb, [facility] [address] [address] Feb, Mood disorder F39 [facility] [address] [id number] [place] [address] Feb, Pain R52 [facility] [address] [id number] [place] [address] Feb, Mood disorder F39 [facility] [address] [id number] [place] [address] Dec, Mood disorder F39 [facility] [id number] [place] [address] Dec, Mood disorder F39 [facility] [id number] [place] [address] Dec, Essential (primary) hypertension I10 [facility] [id number] [place] [address] Dec, Mood disorder F39 [facility] [id number] [place] [address] Nov, [facility] [address] [id number] [place] [address] Nov, Allergic rhinitis, unspecified J30.9 [facility] [id number] [place] [address] 14 Jun, 2014 [facility] [id number] [place] [address] Jun, [facility] [id number] [place] [address] Nov, [facility] [address] [id number] [place] [address] 09 Nov, 2013 [facility] [address] [place], [place] [id number] 57 Nov, [facility] [id number] [place] [address] Nov, [facility] [id number] [place] [address] July, [facility] [id number] [place] [address] July, [facility] [address] [place], [place] [id number] 57 Jun, [facility] [address] [id number] [place] [address] Jun, [facility] [address] [id number] [place] [address] Feb, [facility] [id number] [place] [address] Feb, [facility] [id number] [place] [address] Feb, [facility] [id number] [place] [address] Feb, [facility] [address] [id number] [place] [address] Jan, [facility] [id number] [place] [address] Jan, [facility] [address] [place], [place] [id number] 57 Dec, [facility] [id number] [place] [address] Dec, IMMUNIZATIONS No Known Immunizations SOCIAL HISTORY Never Assessed REASON FOR VISIT PLAN OF CARE VITAL SIGNS MEDICATIONS Unknown Medications RESULTS No Results PROCEDURES No Known procedures INSTRUCTIONS MEDICATIONS ADMINISTERED No Known Medications
--- OUTSIDE RECORDS SUMMARY | 2019-10-05 23:02 | XMS REPORT ---
Author Author Nuno MCDANIEL Organization [facility] Address [address] [place] [address] Care Team Providers Care Catheter Builder Name Role Phone BASSEM MCDANIEL Unavailable PROBLEMS Type Condition ICD9-CM Code UBT60-VD Code Onset Dates Condition S tatus SNOMED Code Problem Essential hypertension, benign 401.1 Active 6685008 Problem Asthma, unspecified, unspecified status 493.90 Active 79725233 Problem Essential (primary) hypertension I10 Active 28090947 Problem Mood disorder F39 Active 240679 05 Problem Anxiety state, unspecified 300.00 Act katharine 500031768 Problem Allergic rhinitis, cause unspecified 477.9 Active 29834513 Problem Allergic rhinitis, unspecified J30.9 Active 60566683 Problem Unspecified episodic mood disorder 296.90 Active 083592910 ALLERGIES No Known Allergies ENCOUNTERS Encounter Location Date Diagnosis [facility] [address] [facility] [id number] [address] [place] [address] Dec, Mood disorder F39 [facility] [address] [facility] [id number] [address] [place] [address] Dec, Mood disorder F39 [facility] [address] [facility] [id number] [address] [place] [address] Dec, Essential (primary) hyperten shelli I10 [facility] [address] [id number] [address] [place] [address] Dec, Mood disorder F39 [facility] [address] [facility] [id number] [address] [place] [address] Nov, [facility] [address] [facility] [id number] [address] [place] [address] Nov, Allergic rhinitis, unspecifi ed J30.9 [facility] [address] [id number] [address] [place] [address] [place] [address] 14 Jun, 2014 [facility] [address] [id number] [address] [place] [address], [place] [address] Jun, [facility] [address] [id number] [address] [place] [address], [place] [address] 09 Nov, 2013 [facility] [address] [id number] [address] [place] [address], [place] [address] Nov, [facility] [address] [place] [id number] 57 Nov, [facility] [address] [id number] [address] [place] [address], [place] [address] Nov, [facility] [address] [id number] [address] [place] [address], [place] [address] July, [facility] [address] [id number] [address] [place] [address], [place] [address] July, [facility] [address] [place] [address] 57 Jun, [facility] [address] [id number] [address] [place] [address], [place] [address] Jun, [facility] [address] [id number] [address] [place] [address], [place] [address] Feb, [facility] [address] [id number] [address] [place] [address], [place] [address] Feb, [facility] [address] [id number] [address] [place] [address], [place] [address] Feb, [facility] [address] [id number] [address] [place] [address], [place] [address] Feb, [facility] [address] [id number] [address] [place] [address], [place] [address] Jan, [facility] [address] [id number] [address] [place] [address], [place] [address] Jan, [facility] [address] [place] [id number] 57 Dec, [facility] [address] [facility] [id number] [address] [place] [address] Dec, IMMUNIZATIONS No Known Immunizations SOCIAL HISTORY Never Assessed REASON FOR VISIT residential rx PLAN OF CARE VITAL SIGNS MEDICATIONS Medication Instructions Dosage Frequency Start Date End Date Duration S yesenia BusPIRone HCl 10 MG Orally Twice a day 1 tablet 12h Dec, Active RESULTS No Results PROCEDURES No Known procedures INSTRUCTIONS MEDICATIONS ADMINISTERED No Known Medications
--- OUTSIDE RECORDS SUMMARY | 2019-10-05 23:03 | XMS REPORT ---
Author Author Nuno MCDANIEL Organization [facility] Address [address] [place] [address] Care Team Providers Care Final Assembly And Packing Supervisor Name Role Phone BASSEM MCDANIEL Unavailable PROBLEMS Type Condition ICD9-CM Code FCO04-KB Code Onset Dates Condition S tatus SNOMED Code Problem Allergic rhinitis, unspecified J30.9 Active 84804481 Problem Unspecified episodic mood disorder 296.90 Active 868062425 Problem Essential hypertension, benign 401.1 Active 7722056 Problem Asthma, unspecified, unspecified status 493.90 Active 85079921 Problem Anxiety state, unspecified 300.00 Act katharine 587085965 Problem Allergic rhinitis, cause unspecified 477.9 Active 15683148 ALLERGIES No Known Allergies ENCOUNTERS Encounter Location Date Diagnosis [facility] [address] [id number] [address] [place] [address] Nov, [facility] [address] [id number] [address] [place] [address] Nov, Allergic rhinitis, unspecifi ed J30.9 [facility] [address] [id number] [place] [address] Jun, [facility] [address] [facility] [id number] [address] [place] [address] Jun, [facility] [address] [facility] [id number] [address] [place] [address] Nov, [facility] [address] [id number] [place] [address] Nov, [facility] [address] [place], [place] [id number] 57 Nov, [facility] [address] [id number] [place] [address] Nov, [facility] [address] [facility] [id number] [address] [place] [address] July, [facility] [address] [id number] [address] [place] [address] July, [facility] [address] [place] [id number] 57 Jun, [facility] [address] [id number] [address] [place] [phone] Jun, [facility] [address] [id number] [address] [place] [id number] Feb, [facility] [address] [id number] [address] [place] [phone] Feb, [facility] [address] [id number] [address] [place] [id number] Feb, [facility] [address] [id number] [address] [place] [id number] Feb, [facility] [address] [id number] [address] [place] [id number] Jan, [facility] [address] [id number] [address] [place] [phone] Jan, [facility] [address] [facility] [id number] Dec, [facility] [address] [id number] [address] [place] [phone] Dec, IMMUNIZATIONS No Known Immunizations SOCIAL HISTORY Never Assessed REASON FOR VISIT [facility]pc PLAN OF CARE VITAL SIGNS MEDICATIONS Medication Instructions Dosage Frequency Start Date End Date Duration S tatus Trazodone HCl 50 mg Orally at bedtime 1 tablet at bedtime Nov, 30 day(s) Active RESULTS No Results PROCEDURES No Known procedures INSTRUCTIONS MEDICATIONS ADMINISTERED No Known Medications
--- OUTSIDE RECORDS SUMMARY | 2019-10-05 23:03 | XMS REPORT ---
Author Author Nuno MCDANIEL Organization [facility] Address [address] [place] [address] Care Team Providers Care Activities Officer Name Role Phone BASSEM MCDANIEL Unavailable PROBLEMS Type Condition ICD9-CM Code [id number] Code Onset Dates Condition S tatus SNOMED Code Problem Essential hypertension, benign 401.1 Active 1232085 Problem Asthma, unspecified, unspecified status 493.90 Active 81958099 Problem Essential (primary) hypertension I10 Active 13858525 Problem Mood disorder F39 Active 637019 05 Problem Anxiety state, unspecified 300.00 Act katharine 972902528 Problem Allergic rhinitis, cause unspecified 477.9 Active 23754356 Problem Allergic rhinitis, unspecified J30.9 Active 01260541 Problem Unspecified episodic mood disorder 296.90 Active [id number] ALLERGIES No Known Allergies ENCOUNTERS Encounter Location Date Diagnosis [place] [address] [place] [id number] [address] [place] [phone] Dec, Essential (primary) hyperten shelli I10 [place] [address] [facility] [id number] [address] [place] [address] Dec, Mood disorder F39 [place] [address] [facility] [id number] [address] [place] [phone] Nov, [place] [address] [facility] [id number] [address] [place] [phone] Nov, Allergic rhinitis, unspecifi ed J30.9 [place] [address] [facility] [id number] [address] [place] [address] Jun, [place] [address] [facility] [id number] [address] [place] [phone] Jun, [facility] [address] [facility] [id number] [address] [place] [phone] Nov, [facility] [address] [id number] [address] [place] [phone] Nov, [facility] [address] [place] [id number] Nov, [facility] [address] [id number] [address] [place] [phone] Nov, [facility] [address] [id number] [address] [place] [phone] July, [facility] [address] [id number] [address] [place] [phone] July, [facility] [address] [place] [id number] Jun, [facility] [address] [id number] [address] [place] [phone] Jun, [facility] [address] [id number] [address] [place] [phone] Feb, [facility] [address] [id number] [address] [place] [phone] Feb, [facility] [address] [id number] [address] [place] [phone] Feb, [facility] [address] [id number] [address] [place] [phone] Feb, [facility] [address] [id number] [address] [place] [phone] Jan, [facility] [address] [id number] [address] [place] [phone] Jan, [facility] [address] [place] [id number] 57 Dec, [facility] [address] [id number] [address] [place] [phone] Dec, IMMUNIZATIONS No Known Immunizations SOCIAL HISTORY Never Assessed REASON FOR VISIT Alf PLAN OF CARE VITAL SIGNS MEDICATIONS Medication Instructions Dosage Frequency Start Date End Date Duration S tatus Hydrochlorothiazide 25 MG Orally Once a day 1 tablet in the morning 24h Dec, 30 day(s) Active RESULTS No Results PROCEDURES No Known procedures INSTRUCTIONS MEDICATIONS ADMINISTERED No Known Medications
--- OUTSIDE RECORDS SUMMARY | 2019-10-05 23:03 | XMS REPORT ---
Author Author Nuno MCDANIEL Organization [facility] Address [address] [place] [address] Care Team Providers Care Financial Operations Consultant Name Role Phone BASSEM MCDANIEL Unavailable PROBLEMS Type Condition ICD9-CM Code [id number] Code Onset Dates Condition S tatus SNOMED Code Problem Allergic rhinitis, unspecified J30.9 Active 60563963 Problem Unspecified episodic mood disorder 296.90 Active 961721415 Problem Essential hypertension, benign 401.1 Active 8827446 Problem Asthma, unspecified, unspecified status 493.90 Active 11010263 Problem Anxiety state, unspecified 300.00 Act katharine 661772206 Problem Allergic rhinitis, cause unspecified 477.9 Active 76819095 ALLERGIES No Known Allergies ENCOUNTERS Encounter Location Date Diagnosis [facility] [address] [place] [id number] [address] [place] [phone] Nov, [facility] [address] [place] [id number] [address] [place] [phone] Nov, Allergic rhinitis, unspecifi ed J30.9 [facility] [address] [facility] [id number] [address] [place] [phone] Jun, [facility] [address] [facility] [id number] [address] [place] [phone] Jun, [facility] [address] [facility] [id number] [address] [place] [phone] Nov, [facility] [address] [place] [id number] [address] [place] [phone] Nov, [facility] [address] [place], [place] [id number] 57 Nov, [facility] [address] [place] [id number] [address] [place] [phone] Nov, [facility] [address] [facility] [id number] [address] [place] [phone] July, [facility] [address] [id number] [address] [place] [phone] July, [facility] [address] [place], [place] [id number] 57 Jun, [facility] [address] [id number] [address] [place] [phone] Jun, [facility] [address] [id number] [address] [place] [phone] Feb, [facility] [address] [id number] [address] [place] [phone] Feb, [facility] [address] [id number] [address] [place] [phone] Feb, [facility] [address] [id number] [address] [place] [phone] Feb, [facility] [address] [id number] [address] [place] [phone] Jan, [facility] [address] [id number] [address] [place] [phone] Jan, [facility] [address] [place], [place] [id number] 57 Dec, [facility] [address] [id number] [address] [place] [phone] Dec, IMMUNIZATIONS No Known Immunizations SOCIAL HISTORY Never Assessed REASON FOR VISIT longterm rx PLAN OF CARE VITAL SIGNS MEDICATIONS Medication Instructions Dosage Frequency Start Date End Date Duration S tatus Flonase 50 MCG/ACT Nasally Once a day 1 spray in each nostril 24h Nov, 30 day(s) Active RESULTS No Results PROCEDURES No Known procedures INSTRUCTIONS MEDICATIONS ADMINISTERED No Known Medications
--- OUTSIDE RECORDS SUMMARY | 2019-10-05 23:03 | XMS REPORT | Continuity of Care Document ---
Author Organization Unknown Address Unknown Phone Unavailable Allergies There is no data. Medications There is no data. Problems Date Dx Coded Attending Type Code Diagnosis Diagnosed By 12/30/2011 300.00 ANX IETY UNSPEC 12/30/2011 BASSEM MCDANIEL APRN 300.00 ANXIETY UNSPEC 12/30/2011 BASSEM MCDANIEL APRN 300.00 ANXIETY UNSPEC 12/30/2011 BASSEM MCDANIEL APRN 300.00 ANXIETY UNSPEC 06/21/2013 BASSEM MCDANIEL APRN 296.90 MOOD DISORDER 06/21/2013 BASSEM MCDANIEL APRN 40 1.1 HYPERTENSION, BENIGN ESSENTIAL 06/21/2013 BASSEM MCDANIEL APRN 296.90 MOOD DISORDER 06/21/2013 BASSEM MCDANIEL APRN 40 1.1 HYPERTENSION, BENIGN ESSENTIAL 11/08/2013 BASSEM MCDANIEL APRN 47 7.9 RHINITIS 11/08/2013 BASSEM MCDANIEL APRN 493.90 ASTHMA UNSPECIFIED Procedures There is no data. Results There is no data. Encounters ACCT No. Visit Date/Time Discharge Status Pt. Type Provider Facility Loc./Unit Complaint [id number] 11/08/2013 09:09:00 11/08/2013 23:59: 59 [facility] Outpatient BASSEM MCDANIEL APRN [id number] 06/21/2013 09:12:00 06/21/2013 23:59: 59 [facility] BASSEM MCDANIEL APRN [id number] 02/25/2012 17:03:00 02/25/2012 23:59: 59 [facility] Outpatient BASSEM MCDANIEL APRN [id number] 12/30/2011 09:19:00 12/30/2011 23:59: 59 [facility] Outpatient [id number] 04/27/2018 10:00:00 04/27/2018 23:59:5 9 [facility] Outpatient BASSEM MCDANIEL APRN [facility] [id number] 10/05/2019 22:58:[address] Emergency BEREKET DUDLEY, EMERY L[place] [facility] ER TESTICULAR PAIN [id number] 11/08/2014 12:49:00 11/08 13:49:00 DIS GR MANUELA HERNANDEZ [id number] 07/01/2018 10:18:00 019 23:59:59 [facility] Outpatient REAL Weaver, Cee GIRALDO [facility] LAB-NON PT
[2019-10-05 23:05] VITALS: BP 153/104
[2019-10-05 23:15] LABS: BILIRUBIN,URINE NEGATIVE (NEGATIVE); CLARITY,URINE SL CLOUDY; COLOR,URINE YELLOW; GLUCOSE, URINE (UA) NEGATIVE (NEGATIVE); KETONES,URINE NEGATIVE (NEGATIVE); LEUKOCYTE ESTERASE ,URINE 2+ (NEGATIVE); NITRITE,URINE NEGATIVE (NEGATIVE); PROTEIN,URINE NEGATIVE (NEGATIVE)
[2019-10-05 23:23] LABS: BACTERIA,URINE TRACE /HPF; RBC,URINE RARE /HPF; WBC,URINE 25-50 /HPF
--- NOTE | 2019-10-05 23:35 | ED GU-Male ---
General Chief Complaint: Male Reproductive Stated Complaint: TESTICULAR PAIN Nursing Triage Note: testicle pain and swelling for over 1 month Source: patient Exam Limitations: no limitations History of Present Illness Date Seen by Provider: Oct 05, 2019 Time Seen by Provider: 23:01 Initial Comments This 39-year-old man presents to the emergency room with progressive pain and swelling of the left testicle over the past month. He denies any dysuria or hematuria. He does have history of chlamydia infection. He is afebrile. Pain has been intensifying recently. Allergies and Home Medications Allergies Coded Allergies: No Known Drug Allergies (Unverified , 10/05/19) Home Medications Doxycycline Hyclate 100 Mg Tablet, 100 MG PO BID Prescribed by: EMERY KIDD on 10/05/19 6072 Patient Home Medication List Home Medication List Reviewed: Yes Review of Systems Review of Systems Constitutional: no symptoms reported EENTM: no symptoms reported Respiratory: no symptoms reported Cardiovascular: no symptoms reported Gastrointestinal: no symptoms reported Genitourinary: see HPI Musculoskeletal: no symptoms reported Skin: no symptoms reported Psychiatric/Neurological: No Symptoms Reported Endocrine: No Symptoms Reported Hematologic/Lymphatic: No Symptoms Reported Past Kcztcaf-Qtzkei-Alniuy Hx Past Med/Social Hx: Reviewed Nursing Past Med/Soc Hx Patient Social History Alcohol Use: Occasionally Uses Recreational Drug Use: Yes Drug of Choice: marijuana Smoking Status: Former Smoker 2nd Hand Smoke Exposure: Yes Recent Foreign Travel: No Contact w/Someone Who Travel: No Recent Infectious Disease Expo: No Recent Hopitalizations: No Physical Abuse: No Sexual Abuse: No Mistreated: No Fear: No Immunizations Up To Date Tetanus Booster (TDap): Unknown Seasonal Allergies Seasonal Allergies: No Past Medical History Surgeries: No Respiratory: Yes Asthma Currently Using CPAP: No Currently Using BIPAP: No Cardiac: No Neurological: No Sexually Transmitted Disease: Yes (Chlamydia) Genitourinary: No Gastrointestinal: No Musculoskeletal: No Endocrine: No HEENT: No Cancer: No Psychosocial: No Integumentary: No Blood Disorders: No Physical Exam Vital Signs Vital Signs - First Documented 10/05/19 23:05 Temp 36.9 Pulse 110 Resp 18 B/P (MAP) 153/104 (120) Capillary Refill : Less Than 3 Seconds Height, Weight, BMI Height: '" Weight: lbs. oz. kg; 24.00 BMI Method: General Appearance: WD/WN, mild distress HEENT: PERRL/EOMI, normal ENT inspection Neck: normal inspection Cardiovascular: regular rate, rhythm, no edema, no murmur Respiratory: lungs clear, normal breath sounds, no respiratory distress, no accessory muscle use Gastrointestinal: normal bowel sounds, non tender, soft Male: other (Penis normal with no drainage. Left scrotum is very swollen and extremely tender, especially posteriorly) Extremities: normal inspection, no pedal edema Neurologic/Psychiatric: white lead filterer II-XII nml as tested, no motor/sensory deficits, alert, normal mood/affect, oriented x 3 Skin: normal color, warm/dry Progress/Results/Core Measures Suspected Sepsis Recent Fever Within 48 Hours: No Infection Criteria Present: None New/Unexplained Altered Menta: No Sepsis Screen: No Definite Risk SIRS Temperature: Pulse: 110 Respiratory Rate: 18 Blood Pressure 153 /104 Mean: 120 Results/Orders Lab Results Laboratory Tests Test 10/05/19 23:10 Range/Units Urine Color YELLOW Urine Clarity SL CLOUDY Urine pH 7.0 5-9 Urine Specific [place] 1.010 L 1.016-1.022 Urine Protein NEGATIVE NEGATIVE Urine Glucose (UA) NEGATIVE NEGATIVE Urine Ketones NEGATIVE NEGATIVE Urine Nitrite NEGATIVE NEGATIVE Urine Bilirubin NEGATIVE NEGATIVE Urine Urobilinogen 1.0 < = 1.0 MG/DL Urine Leukocyte Esterase 2+ H NEGATIVE Urine RBC (Auto) NEGATIVE NEGATIVE Urine RBC RARE /HPF Urine WBC 25-50 H /HPF Urine Squamous Epithelial Cells NONE /HPF Urine Crystals NONE /LPF Urine Bacteria TRACE /HPF Urine Casts NONE /LPF Urine Mucus NEGATIVE /LPF Urine Culture Indicated YES My Orders Orders - EMERY CUBA MD Ua Culture If Indicated (10/05/19 23:01) Ceftriaxone For Im Use (Rocephin For Im (10/05/19 23:15) Lidocaine 1% Inj 20 Ml (Xylocaine 1% Inj (10/05/19 23:15) Doxycycline Hyclate Tablet (Vibramycin T (10/05/19 23:15) Chlamydia Trachomatis Urine (10/05/19 23:15) Neis Brian Dna Urine Test (10/05/19 23:15) Urine Culture (10/05/19 23:10) Ketorolac Injection (Toradol Injection) (10/05/19 23:30) Ketorolac Injection (Toradol Injection) (10/05/19 23:24) Medications Given in ED Current Medications Medications Dose Ordered Sig/Nelly Route Start Time Stop Time Status Last Admin Dose Admin Ceftriaxone Sodium 1,000 mg ONCE ONCE IM 10/05/19 23:15 10/05/19 23:16 DC 10/05/19 23:31 1,000 MG Doxycycline Hyclate 100 mg ONCE ONCE PO 10/05/19 23:15 10/05/19 23:16 DC 10/05/19 23:32 100 MG Ketorolac Tromethamine 30 mg ONCE ONCE IM 10/05/19 23:30 10/05/19 23:31 DC 10/05/19 23:33 30 MG Lidocaine HCl 2.1 ml ONCE ONCE INJ 10/05/19 23:15 10/05/19 23:16 DC 10/05/19 23:32 2.1 ML Vital Signs/I&O 10/05/19 23:05 Temp 36.9 Pulse 110 Resp 18 B/P (MAP) 153/104 (120) Capillary Refill : Less Than 3 Seconds Blood Pressure Mean: 120 Progress Note : Progress Note UA suggested urinary tract infection. Treatment was initiated with Rocephin and doxycycline. Toradol was given for pain. Patient was given ultrasound order form to obtain an ultrasound in the morning. This condition has been present for a month and does not require emergent ultrasound. Departure Impression Primary Impression: Urinary tract infection Qualified Codes: N39.0 - Urinary tract infection, site not specified Additional Impression: Left testicular pain Disposition: HOME, SELF-CARE Condition: Improved Departure-Patient Inst. Decision time for Depature: 23:31 Referrals: NO,LOCAL PHYSICIAN (PCP/Family) Primary Care Physician Patient Instructions: Epididymitis Add. Discharge Instructions: You have signs of infection in your urine. You may have epididymitis and/or a sexually transmitted infection. Complete the antibiotics as prescribed. You should have culture results back by early next week. If you are not contacted by end of day Thursday, feel free to contact the emergency room or your primary care provider for results. No sexual contact of any kind until culture results are known. Take a combination of ibuprofen 600 mg every 6 hours and Tylenol (acetaminophen) up to 1000 mg every 6 hours as needed for pain. Return to the hospital by 8:00 tomorrow morning for an ultrasound of the scrotum to evaluate for other structural problems of the testicle or scrotum. Stay in the ultrasound department until report is given to the ER doctor on duty. Excellent return to care if you have any further problems or concerns. All discharge instructions reviewed with patient and/or family. Voiced understanding. Scripts Doxycycline Hyclate (Doxycycline Hyclate) 100 Mg Tablet 100 MG PO BID, #20 TAB 0 Refills Prov: EMERY CUBA MD 10/05/19 EMERY CUBA MD Oct 05, 2019 23:35
== END | disposition home or self-care (01) ==
LOC: EDUNIT# 22:55 → ER 22:58
DX: N39.0 Urinary tract infection, site not specified (principal); N50.812 Left testicular pain; Z87.891 Personal history of nicotine dependence
CPT/HCPCS: 36415; 81000; 87077; 87088; 87185; 87491; 87591; 99283

== ENCOUNTER 2019-11-02 20:18 | Emergency (ER) | payer SELFPAY ==
[~2019-11-02 20:18] MED LIST changes: -DOXYCYCLINE 100 MG (VIBRAMYCIN) TABLET PO ONE; -KETOROLAC 30 MG/ML VIAL IM ONE; -KETOROLAC 30 MG/ML VIAL ONE; -LIDOCAINE 1% INJ 20 ML 20 ML VIAL INJ ONE; -cefTRIAXone 1,000 MG/2.86 ml vial (IM ONLY) IM ONE
--- NOTE | 2019-11-02 21:03 | NUR ---
PT LWBS AT 0850 Addendum: 11/02/19 at 2109 by DANA Pt left at 2049.
== END 2019-11-02 20:50 | disposition left against medical advice (07) ==
LOC: EDUNIT# 20:18 → ER 20:20
DX: R06.02 Shortness of breath (principal)

== ENCOUNTER 2019-11-04 00:25 | Inpatient (IN) | payer SELFPAY ==
[~2019-11-04] VITALS: Ht 172 cm; Wt 73.6 kg
[2019-11-04] VITALS (12 sets, daily range): BP systolic 98–122; BP diastolic 69–97
--- NOTE | 2019-11-04 00:35 | NUR ---
Late entry: Pt to room where he reports 4 days of wheezing and sob with cp; reports a hx of asthma and that he only has a flovent inhaler and he's been out of his albuteral. Pt is tachypneic and has expiratory wheezes on ascultation. Pt to monitor; IV and labs drawn. Pt to PUI isolation due to nature of hx and concern for risk. Dr. Zhang to room for eval and orders received.
[2019-11-04] MEDS ORDERED: methylPREDNISolone 125 MG (Solu-MEDROL) VIAL ONE (00:39)
[2019-11-04] MEDS ORDERED: LORazepam INJ 2 MG/ML (ATIVAN) VIAL ONE (00:39)
[2019-11-04] MEDS ORDERED: ALBUTEROL/IPRATROP (COMBIVENT RESPIMAT) 4 GM INHALER ONE (00:40)
[2019-11-04] MEDS ORDERED: ADVAIR HFA 115/21 MCG INHALER 8 GM IH ONE (00:40)
[2019-11-04 00:43] LABS: BASOPHILS % (AUTO) 0 % (0-10); EOSINOPHILS # (AUTO) 0.1 10^3/uL (0.0-0.3); EOSINOPHILS % (AUTO) 1 % (0-10); HEMATOCRIT 44 % (40-54); HEMOGLOBIN 14.6 G/DL (13.3-17.7); LYMPHOCYTES # (AUTO) 1.9 X 10^3 (1.0-4.0); LYMPHOCYTES % (AUTO) 20 % (12-44); MEAN CORPUSCULAR HEMOGLOBIN 29 PG (25-34); MEAN CORPUSCULAR HGB CONC 34 G/DL (32-36); MEAN CORPUSCULAR VOLUME 85 FL (80-99); MEAN PLATELET VOLUME 9.6 FL (7.4-10.4); MONOCYTES # (AUTO) 0.5 X 10^3 (0.0-1.0); MONOCYTES % (AUTO) 5 % (0-12); NEUTROPHILS # (AUTO) 6.8 X 10^3 (1.8-7.8); NEUTROPHILS % (AUTO) 73 % (42-75); PLATELET COUNT 357 10^3/uL (130-400); RED CELL DISTRIBUTION WIDTH 13.6 % (10.0-14.5); WHITE BLOOD COUNT 9.3 10^3/uL (4.3-11.0)
[2019-11-04] MEDS ORDERED: ALBUTEROL/IPRATROP (COMBIVENT RESPIMAT) 4 GM INHALER IH PRN ×2 (00:45→05:00)
[2019-11-04] MEDS ORDERED: ASPIRIN 81 MG CHEW (CHILDREN'S ASA) PO ONE (00:45)
[2019-11-04] MEDS ORDERED: LORazepam INJ 2 MG/ML (ATIVAN) VIAL IVP ONE (00:45)
[2019-11-04] MEDS ORDERED: NITROGLYCERIN 0.4 MG SL TABS BTL 25'S SL PRN ×2 (00:45→04:15)
[2019-11-04] MEDS ORDERED: methylPREDNISolone 125 MG (Solu-MEDROL) VIAL IVP ONE (00:45)
[2019-11-04 00:52] LABS: ALBUMIN 3.6 GM/DL (3.2-4.5); CHLORIDE 100 MMOL/L (98-107); POTASSIUM 3.9 MMOL/L (3.6-5.0); SODIUM 136 MMOL/L (135-145)
[2019-11-04 00:53] LABS: AMYLASE 40 U/L (25-125); CALCIUM 8.8 MG/DL (8.5-10.1); INR 1.2 (0.8-1.4); PROTHROMBIN TIME PATIENT 15.3 SEC (12.2-14.7)
[2019-11-04 00:54] LABS: GLUCOSE 131 MG/DL (70-105)
[2019-11-04 00:55] LABS: TOTAL PROTEIN 7.3 GM/DL (6.4-8.2)
[2019-11-04 00:56] LABS: BILIRUBIN,TOTAL 0.6 MG/DL (0.1-1.0); CARBON DIOXIDE 24 MMOL/L (21-32)
[2019-11-04 00:58] LABS: ALKALINE PHOSPHATASE 120 U/L (40-136); GFR ESTIMATED > 60
[2019-11-04 00:59] LABS: BUN/CREATININE RATIO 9
--- NOTE | 2019-11-04 01:00 | ED Dyspnea ---
General Stated Complaint: CP,SOB Source of Information: Patient History of Present Illness Date Seen by Provider: Nov 04, 2019 Time Seen by Provider: 00:30 Initial Comments PT ARRIVES VIA POV C/O SHORTNESS OF BREATH AND CHEST PAIN X 4 DAYS--SHORTNESS OF BREATH IS WORSE STATES HE HAS ASTHMA AND HAS BEEN PRESCRIBED FLOVENT, BUT HAS NOT USED ANY FOR THE LAST FEW DAYS, DIDN'T HELP--STATES IT WAS AN OLD INHALER THAT HE GOT WHEN HE WAS IN [facility] PT STATES HE HAS HTN, AND HAD BEEN PRESCRIBED BLOOD PRESSURE MEDICATIONS WHEN HE WAS IN [facility], BUT WHEN HE GOT OUT, HE NEVER TOOK THEM ANYMORE--"DIDN'T THINK I NEEDED THEM" --STATES HE HAS BEEN OUT OF [facility] FOR A YEAR ON DIRECT QUESTIONING OF DRUG USE, HE ADMITS TO SMOKING COCAINE AND METH--STATES "IT WAS A MIXTURE OF SOMETHING" AND CLAIMS HE IS NOT SURE WHAT WAS IN IT--CLAIMS HE LAST SMOKED ANYTHING 2 DAYS AGO STATES "IT'S LIKE I'M HAVING A PANIC ATTACK OR SOMETHING"--STATES HE WAKES UP AND HE CAN'T BREATHE NO FEVER C/O NON-PRODUCTIVE COUGH NO SWELLING IN FEET/ANKLES NO KNOWN SICK CONTACTS OR KNOWN EXPOSURE TO COVID-19 NO PCP ANYWHERE Allergies and Home Medications Allergies Coded Allergies: No Known Drug Allergies (Unverified , 10/05/19) Home Medications Doxycycline Hyclate 100 Mg Tablet, 100 MG PO BID Prescribed by: EMERY KIDD on 10/05/19 8686 Patient Home Medication List Home Medication List Reviewed: Yes Review of Systems Review of Systems Constitutional: No fever Respiratory: see HPI, cough, short of breath Cardiovascular: see HPI, chest pain; No edema Gastrointestinal: no symptoms reported Genitourinary: no symptoms reported Musculoskeletal: no symptoms reported Skin: no symptoms reported Psychiatric/Neurological: See HPI, Anxiety Endocrine: No Symptoms Reported Hematologic/Lymphatic: No Symptoms Reported Past Ppclbli-Nypndp-Fldyyj Hx Past Med/Social Hx: Reviewed and Corrections made Patient Social History Alcohol Use: Occasionally Uses Recreational Drug Use: Yes (THC, METH, COCAINE, "OTHERS" -DENIES IV USE) Drug of Choice: THC, METH, COCAINE, "OTHERS" DENIES IV USE Smoking Status: Never a Smoker 2nd Hand Smoke Exposure: Yes Recent Foreign Travel: No Contact w/Someone Who Travel: No Recent Hopitalizations: No Immunizations Up To Date Tetanus Booster (TDap): Unknown Seasonal Allergies Seasonal Allergies: No Past Medical History Surgeries: No Respiratory: Yes Asthma Currently Using CPAP: No Currently Using BIPAP: No Cardiac: Yes Hypertension Neurological: No Sexually Transmitted Disease: Yes (Chlamydia) Genitourinary: No Gastrointestinal: No Musculoskeletal: No Endocrine: No HEENT: No Cancer: No Psychosocial: No Integumentary: No Blood Disorders: No Family Medical History HAS BEEN INCARCERATED--OUT OF [facility] 2019 Physical Exam Vital Signs Vital Signs - First Documented 11/04/19 11/04/19 00:30 01:20 Temp 37.2 Pulse 110 Resp 24 B/P (MAP) 178/132 (147) Pulse Ox 94 O2 Delivery Room Air O2 Flow Rate 2.00 Capillary Refill : Height, Weight, BMI Height: '" Weight: lbs. oz. kg; 24.00 BMI Method: General Appearance: Anxious, Moderate Distress (HYPERVENTILATING. ANXIOUS, TALKS IN SHORT SENTENCES) Neck: Normal Inspection Respiratory: Accessory Muscle Use, Decreased Breath Sounds (IN BASE), Respiratory Distress ( MODERATE DISTRESS, ABLE TO TALK IN SHORT SENTENCES. RESPIRATORY RATE IN 50'S ON ARRIVAL), Wheezing (FAINT EXPIRATORY WHEEZING), Other (DRY COUGH) Cardiovascular: No Murmur, Normal Peripheral Pulses, Tachycardia (120'S) Gastrointestinal: Soft Extremity: Normal Range of Motion, No Pedal Edema Neurologic/Psychiatric: Alert, Oriented x3, No Motor/Sensory Deficits, Other (VERY ANXIOUS) Skin: Normal Color (PT IS BLACK), Warm/Dry; No Diaphoresis Focused Exam Lactate Level 11/04/19 00:40: Lactic Acid Level 2.72*H Lactic Acid Level Laboratory Tests Test 11/04/19 00:40 Lactic Acid Level 2.72 MMOL/L (0.50-2.00) *H Progress/Results/Core Measures Results/Orders Lab Results Laboratory Tests Test 11/04/19 00:15 11/04/19 00:35 11/04/19 00:40 11/04/19 00:50 Range/Units Coronavirus 2019 (SANJEEV) Negative Negative White Blood Count 9.3 4.3-11.0 10^3/uL Red Blood Count 5.10 4.35-5.85 10^6/uL Hemoglobin 14.6 13.3-17.7 G/DL Hematocrit 44 40-54 % Mean Corpuscular Volume 85 80-99 FL Mean Corpuscular Hemoglobin 29 25-34 PG Mean Corpuscular Hemoglobin Concent 34 32-36 G/DL Red Cell Distribution Width 13.6 10.0-14.5 % Platelet Count 357 130-400 10^3/uL Mean Platelet Volume 9.6 7.4-10.4 FL Neutrophils (%) (Auto) 73 42-75 % Lymphocytes (%) (Auto) 20 12-44 % Monocytes (%) (Auto) 5 0-12 % Eosinophils (%) (Auto) 1 0-10 % Basophils (%) (Auto) 0 0-10 % Neutrophils # (Auto) 6.8 1.8-7.8 X 10^3 Lymphocytes # (Auto) 1.9 1.0-4.0 X 10^3 Monocytes # (Auto) 0.5 0.0-1.0 X 10^3 Eosinophils # (Auto) 0.1 0.0-0.3 10^3/uL Basophils # (Auto) 0.0 0.0-0.1 10^3/uL Prothrombin Time 15.3 H 12.2-14.7 SEC INR Comment 1.2 0.8-1.4 Activated Partial Thromboplast Time 29 24-35 SEC D-Dimer 2.42 H 0.00-0.49 UG/ML Sodium Level 136 135-145 MMOL/L Potassium Level 3.9 3.6-5.0 MMOL/L Chloride Level 100 98-107 MMOL/L Carbon Dioxide Level 24 21-32 MMOL/L Anion Gap 12 5-14 MMOL/L Blood Urea Nitrogen 11 7-18 MG/DL Creatinine 1.20 0.60-1.30 MG/DL Estimat Glomerular Filtration Rate > 60 BUN/Creatinine Ratio 9 Glucose Level 131 H 70-105 MG/DL Calcium Level 8.8 8.5-10.1 MG/DL Corrected Calcium 9.1 8.5-10.1 MG/DL Magnesium Level 1.9 1.6-2.4 MG/DL Total Bilirubin 0.6 0.1-1.0 MG/DL Aspartate Amino Transf (AST/SGOT) 102 H 5-34 U/L Alanine Aminotransferase (ALT/SGPT) 206 H 0-55 U/L Alkaline Phosphatase 120 40-136 U/L Lactate Dehydrogenase 338 H 125-220 U/L Total Creatine Kinase 302 H 30-200 U/L Creatine Kinase MB 5.3 <6.6 NG/ML Myoglobin 71.0 10.0-92.0 NG/ML Troponin I 0.700 *H <0.028 NG/ML C-Reactive Protein High Sensitivity 7.15 H 0.00-0.50 MG/DL B-Type Natriuretic Peptide 2350.6 H <100.0 PG/ML Total Protein 7.3 6.4-8.2 GM/DL Albumin 3.6 3.2-4.5 GM/DL Amylase Level 40 25-125 U/L Lipase 19 8-78 U/L Procalcitonin 0.20 H <0.10 NG/ML Serum Alcohol < 10 <10 MG/DL Erythrocyte Sedimentation Rate 15 0-15 MM/HR Lactic Acid Level 2.72 *H 0.50-2.00 MMOL/L Blood Gas Puncture Site LEFT RADIAL Blood Gas Patient Temperature 37.6 Arterial Blood pH 7.33 *L 7.37-7.43 Arterial Blood Partial Pressure CO2 53 H 35-45 MMHG Arterial Blood Partial Pressure O2 40 L 79-93 MMHG Arterial Blood HCO3 27 23-27 MMOL/L Arterial Blood Total CO2 28.9 21.0-31.0 MMOL/L Arterial Blood Oxygen Saturation 50 L 94-100 % Arterial Blood Base Excess 2.1 -2.5-2.5 MMOL/L Remy Test POSITIVE Blood Gas Ventilator Setting NO Blood Gas Inspired Oxygen RA Test 11/04/19 01:29 Range/Units Urine Color YELLOW Urine Clarity CLEAR Urine pH 6.0 5-9 Urine Specific [place] 1.020 1.016-1.022 Urine Protein 2+ H NEGATIVE Urine Glucose (UA) NEGATIVE NEGATIVE Urine Ketones NEGATIVE NEGATIVE Urine Nitrite NEGATIVE NEGATIVE Urine Bilirubin NEGATIVE NEGATIVE Urine Urobilinogen 1.0 < = 1.0 MG/DL Urine Leukocyte Esterase NEGATIVE NEGATIVE Urine RBC (Auto) TRACE-I NEGATIVE Urine RBC NONE /HPF Urine WBC 0-2 /HPF Urine Squamous Epithelial Cells RARE /HPF Urine Crystals NONE /LPF Urine Bacteria NEGATIVE /HPF Urine Casts NONE /LPF Urine Mucus NEGATIVE /LPF Urine Culture Indicated NO Urine Opiates Screen NEGATIVE NEGATIVE Urine Oxycodone Screen NEGATIVE NEGATIVE Urine Methadone Screen NEGATIVE NEGATIVE Urine Propoxyphene Screen NEGATIVE NEGATIVE Urine Barbiturates Screen NEGATIVE NEGATIVE Ur Tricyclic Antidepressants Screen NEGATIVE NEGATIVE Urine Phencyclidine Screen NEGATIVE NEGATIVE Urine Amphetamines Screen POSITIVE H NEGATIVE Urine Methamphetamines Screen POSITIVE H NEGATIVE Urine Benzodiazepines Screen NEGATIVE NEGATIVE Urine Cocaine Screen NEGATIVE NEGATIVE Urine Cannabinoids Screen NEGATIVE NEGATIVE My Orders Orders - VALERIE BROWN DO Cbc With Automated Diff (11/04/19:32) Magnesium (11/04/19:32) Chest 1 View, Ap/Pa Only (11/04/19:32) Ekg Tracing (11/04/19:32) Comprehensive Metabolic Panel (11/04/19:) Myoglobin Serum (11/04/19:32) Protime With Inr (11/04/19:) Partial Thromboplastin Time (11/04/19:) O2 (11/04/19:) Monitor-Rhythm Ecg Trace Only (11/04/19:) Ed Iv/Invasive Line Start (11/04/19:32) Creatine Kinase (11/04/19:32) Creatine Kinase Mb (11/04/19:32) Lipase (11/04/19:) Amylase (11/04/19:) BNP (11/04/19:) Nitroglycerin 0.4 Mg Btl 25's (Nitrostat (11/04/19 00:45) Aspirin Chewable Tablet (Baby Aspirin Ch (11/04/19 00:45) Drug Screen Stat (Urine) (11/04/19 00:32) Ua Culture If Indicated (11/04/19 00:32) Methylprednisolone Sod Succ (Solu-Medrol (11/04/19 00:39) Lorazepam Injection (Ativan Injection) (11/04/19 00:39) Fluticasone/Salmeterol 115/21 (Advair Hf (11/04/19 00:40) Albuterol/Ipratropium Inhaler (Combivent (11/04/19 00:40) Albuterol/Ipratropium Inhaler (Combivent (11/04/19 00:45) Methylprednisolone Sod Succ (Solu-Medrol (11/04/19 00:45) Lorazepam Injection (Ativan Injection) (11/04/19 00:45) Rt Request For Service (11/04/19 00:42) Arterial Blood Gas (11/04/19 00:42) Lactic Acid Analyzer (11/04/19 00:42) Erythrocyte Sedimentation Rate (11/04/19 00:42) Coronavirus Sars-Cov-2 So 2018 (11/04/19 00:42) Alcohol (11/04/19 00:35) Troponin I (11/04/19 00:35) Hs C Reactive Protein (11/04/19 00:35) LDH (11/04/19 00:35) Procalcitonin (Pct) (11/04/19 00:35) Covid 19 Inhouse Test (11/04/19 01:09) Ceftriaxone For Iv Use (Rocephin For I (11/04/19 01:15) Azithromycin Injection (Zithromax Inject (11/04/19 01:15) Furosemide Injection (Lasix Injection) (11/04/19 01:30) Enoxaparin Injection (Lovenox Injection) (11/04/19 01:30) Fibrin Degradation Products (11/04/19 00:35) Medications Given in ED Current Medications Medications Dose Ordered Sig/Nelly Route Start Time Stop Time Status Last Admin Dose Admin Albuterol/ Ipratropium 1 PUFF QID PRN IH 11/04/19 00:45 11/04/19 00:53 4 GM Aspirin 324 mg ONCE ONCE PO 11/04/19 00:45 11/04/19 00:46 DC 11/04/19 00:47 324 MG Azithromycin 500 mg/Sodium Chloride 250 ml @ 250 mls/hr ONCE ONCE IV 11/04/19 01:15 11/04/19 02:14 DC 11/04/19 01:51 250 MLS/HR Ceftriaxone Sodium 1000 mg/ Sterile Water 10 ml @ 200 mls/hr ONCE ONCE IV 11/04/19 01:15 11/04/19 01:17 DC 11/04/19 01:40 200 MLS/HR Enoxaparin Sodium 90 mg ONCE ONCE SC 11/04/19 01:30 11/04/19 01:31 DC 11/04/19 01:52 90 MG Furosemide 80 mg ONCE ONCE IVP 11/04/19 01:30 11/04/19 01:31 DC 11/04/19 01:44 80 MG Lorazepam 2 mg ONCE ONCE IVP 11/04/19 00:45 11/04/19 00:46 DC 11/04/19 00:54 2 MG Methylprednisolone Sodium Succinate 125 mg ONCE ONCE IVP 11/04/19 00:45 11/04/19 00:46 DC 11/04/19 00:50 125 MG Salmeterol Xinafoate/ Fluticasone 60 puff STK-MED ONCE IH 11/04/19 00:40 11/04/19 00:44 DC 11/04/19 03:07 60 PUFF Vital Signs/I&O 11/04/19 11/04/19 00:30 01:20 Temp 37.2 Pulse 110 Resp 24 B/P (MAP) 178/132 (147) Pulse Ox 94 99 O2 Delivery Room Air Nasal Cannula O2 Flow Rate 2.00 Progress Progress Note : Progress Note PLACED IN ISOLATION ROOM AND PPE DONNED COVID-19 TESTING PERFORMED ON ARRIVAl-O2 SAT 97-98% ON ROOM AIR GIVEN SOLU-MEDROL, ASPIRIN, ATIVAN AND COMBIVENT AND ADVAIR INHALER T REATMENTS--CHEST PAIN RESOLVED WITH OUT NTG, AND BREATHING IS MUCH IMPROVED AFTER INHALERS--RESPIRATORY RATE DOWN TO 40, MUCH LESS DYSPNEIC. CALMER. OVERALL, SIGNIFICANT IMPROVEMENT AT TIME OF ADMIT. 0120--O2 SATS 92-93%--PLACED ON O2 AT 2L/NC AND O2 SATS UP TO 97% ALSO GIVEN LASIX, LOVENOX, TOPROL XL, NITROPASTE FOR ELEVATED BP WELL FOR VASODILATION/CHF, AND HYDRALAZINE, Initial ECG Impression Date: Nov 04, 2019 Initial ECG Impression Time: 00:34 Initial ECG Rate: 119 Initial ECG Rhythm: S.Tach (LBBB) Initial ECG Comparisson: No Previous ECG Available Diagnostic Imaging Comments CXR--DIFFUSE BILATERAL INFILTRATES--RIGHT > LEFT--PENDING RADIOLOGIST REVIEW CT CHEST ANGIOGRAM--NO P.E., CARDIOMEGALY WITH CENTRILOBULAR SIZEABLE CONFINED GROUNDGLASS OPACITIES AND SMALL BILATERAL PLEURAL EFFUSIONS. MAY BE CONSISTENT WITH PULMONARY EDEMA BUT5 CANNOT RULE OUT PNEUMONITIS--PER [facility] VIA FAX AT 0306 Reviewed: Reviewed by Me Departure Communication (Admissions) 0126--SPOKE WITH DR. ELI, HOSPITALIST STRATEGIC MANAGER. ACCEPTS PT FOR ADMIT. [id number]--ATTEMPTING TO CONTACT DR. MARS ( LISTED TAX AGENT STRATEGIC MANAGER STRATEGIC MANAGER SHEETS ) 0144--SPOKE WITH DR. PERLA ( TAX AGENT ACTUALLY COVERING AT THIS TIME ) FOR CARDIOLOGY CONSULT Impression Primary Impression: Bilateral pneumonia Additional Impressions: Person under investigation for COVID-19 Chest pain Elevated troponin LBBB OF UNKNOWN DURATION Illicit drug use HTN (hypertension) Respiratory distress CHF (congestive heart failure) Disposition: ADMITTED INPATIENT Condition: Improved Admissions Decision to Admit Reason: Admit from ER (General) Decision to Admit/Date: Nov 04, 2019 Time/Decision to Admit Time: 01:30 Departure-Patient Inst. Referrals: NO,LOCAL PHYSICIAN (PCP/Family) Primary Care Physician VALERIE BROWN DO Nov 04, 2019 01:00
[2019-11-04 01:01] LABS: ALANINE AMINOTRANSFERASE 206 U/L (0-55); MAGNESIUM 1.9 MG/DL (1.6-2.4)
[2019-11-04 01:02] LABS: CREATINE KINASE 302 U/L (30-200); LIPASE 19 U/L (8-78)
[2019-11-04 01:10] LABS: CREATINE KINASE MB 5.3 NG/ML (<6.6)
[2019-11-04] MEDS ORDERED: AZITHROMYCIN INJECTION 500 MG in NS (IVPB) 250 ML IV ONE (01:15)
[2019-11-04] MEDS ORDERED: cefTRIAXone FOR IV USE 1,000 MG in WATER (STERILE) FOR INJECTION 10 ML IV ONE (01:15)
[2019-11-04 01:21] LABS: ABG BASE EXCESS 2.1 MMOL/L (-2.5-2.5); ABG OXYGEN SATURATION 50 % (94-100); ABG PCO2 53 MMHG (35-45); ABG PO2 40 MMHG (79-93); ABG TCO2 28.9 MMOL/L (21.0-31.0)
[2019-11-04 01:23] LABS: ABG PH 7.33 (7.37-7.43)
[2019-11-04 01:24] LABS: ALLENS TEST POSITIVE; INSPIRED O2 RA; PATIENT TEMP 37.6; VENTILATOR NO
[2019-11-04] MEDS ORDERED: FUROSEMIDE 40 MG/4 ML INJ (LASIX) IVP ONE (01:30)
[2019-11-04] MEDS ORDERED: ENOXAPARIN 100 MG/1 ML (LOVENOX) SYR SC ONE (01:30)
--- NOTE | 2019-11-04 01:35 | NUR ---
Pt reports he feels much better; cp has resolved; pt reports his breathing feels much easier.
[2019-11-04 01:36] LABS: BILIRUBIN,URINE NEGATIVE (NEGATIVE); CLARITY,URINE CLEAR; COLOR,URINE YELLOW; GLUCOSE, URINE (UA) NEGATIVE (NEGATIVE); KETONES,URINE NEGATIVE (NEGATIVE); LEUKOCYTE ESTERASE ,URINE NEGATIVE (NEGATIVE); NITRITE,URINE NEGATIVE (NEGATIVE); PROTEIN,URINE 2+ (NEGATIVE)
[2019-11-04] MEDS ORDERED: meTOprolol SUCCINATE 100 MG (TOPROL XL) TAB PO ONE (01:45)
[2019-11-04 01:46] LABS: FIBRIN DEGRADATION PRODUCTS 2.42 UG/ML (0.00-0.49)
[2019-11-04] MEDS ORDERED: meTOproloL SUCCINATE 50 MG (TOPROL XL) TAB PO ONE (01:50)
[2019-11-04 01:51] LABS: AMPHETAMINE SCREEN, URINE POSITIVE (NEGATIVE); BARBITURATE SCREEN URINE NEGATIVE (NEGATIVE); BENZODIAZEPINES SCREEN URINE NEGATIVE (NEGATIVE); CANNABINOID SCREEN, URINE NEGATIVE (NEGATIVE); COCAINE SCREEN URINE NEGATIVE (NEGATIVE); METHADONE STAT NEGATIVE (NEGATIVE); METHAMPHETAMINE SCREEN URINE S POSITIVE (NEGATIVE); OPIATE SCREEN URINE NEGATIVE (NEGATIVE); OXYCODONE STAT NEGATIVE (NEGATIVE); PROPOXYPHENE STAT NEGATIVE (NEGATIVE); TRICYCLIC ANTIDEPRESSANTS SCRE NEGATIVE (NEGATIVE)
[2019-11-04] MEDS ORDERED: NITROGLYCERIN 2% OINT 1 GM UNIT DOSE PACKET ONE (01:56)
[2019-11-04 01:59] LABS: BACTERIA,URINE NEGATIVE /HPF; SQUAMOUS EPITHELIAL CELL,UR RARE /HPF; WBC,URINE 0-2 /HPF
[2019-11-04] MEDS ORDERED: meTOproloL SUCCINATE 50 MG (TOPROL XL) TAB PO SCH ×2 (02:00)
[2019-11-04] MEDS ORDERED: hydrALAZINE (APESOLINE) 20 MG/ML VIAL IV ONE (02:00)
[2019-11-04] MEDS ORDERED: NITROGLYCERIN 2% OINT 1 GM UNIT DOSE PACKET TOP ONE (02:00)
--- NOTE | 2019-11-04 02:20 | NUR ---
Pt to CT and back by cart with this nurse present and on and monitor.
[2019-11-04] MEDS ORDERED: NS 100 ML (IVPB) BAG IV ONE (03:00)
[2019-11-04] MEDS ORDERED: IOHEXOL 350 MG/ML 100 ML (OMNIPAQUE 350) VIAL IV ONE (03:00)
[2019-11-04] MEDS ORDERED: HOLD METFORMIN - RECEIVED CONTRAST 20 ML VIAL IV SCH (03:00)
[2019-11-04] MEDS ORDERED: CATHETER FLUSH 10 ML SYR IV PRN (03:00)
--- NOTE | 2019-11-04 03:15 | NUR ---
Called lab regarding 2nd lactic acid; they advised that this nurse could pull the sample. Sample pulled and sent.
[2019-11-04] MEDS ORDERED: LORazepam INJ 2 MG/ML (ATIVAN) VIAL IV PRN (04:15)
[2019-11-04] MEDS ORDERED: morphine INJ 4 MG/ML 1 ML (VIAL/SYRINGE) IV PRN (04:15)
[2019-11-04] MEDS ORDERED: ONDANSETRON 4 MG/2 ML (SDV) Z0FRAN IV PRN (04:15)
[2019-11-04] MEDS ORDERED: ACETAMINOPHEN 500 MG TAB (TYLENOL) PO PRN (04:15)
[2019-11-04 04:21] LABS: BASOPHILS % (AUTO) 0 % (0-10); EOSINOPHILS % (AUTO) 0 % (0-10); HEMATOCRIT 44 % (40-54); HEMOGLOBIN 14.7 G/DL (13.3-17.7); LYMPHOCYTES # (AUTO) 0.5 X 10^3 (1.0-4.0); LYMPHOCYTES % (AUTO) 4 % (12-44); MEAN CORPUSCULAR HEMOGLOBIN 28 PG (25-34); MEAN CORPUSCULAR HGB CONC 34 G/DL (32-36); MEAN CORPUSCULAR VOLUME 84 FL (80-99); MEAN PLATELET VOLUME 9.9 FL (7.4-10.4); MONOCYTES # (AUTO) 0.1 X 10^3 (0.0-1.0); MONOCYTES % (AUTO) 1 % (0-12); NEUTROPHILS # (AUTO) 11.5 X 10^3 (1.8-7.8); NEUTROPHILS % (AUTO) 95 % (42-75); PLATELET COUNT 374 10^3/uL (130-400); RED CELL DISTRIBUTION WIDTH 13.7 % (10.0-14.5); WHITE BLOOD COUNT 12.2 10^3/uL (4.3-11.0)
[2019-11-04 04:32] LABS: ALBUMIN 3.7 GM/DL (3.2-4.5); CHLORIDE 98 MMOL/L (98-107); POTASSIUM 3.6 MMOL/L (3.6-5.0); SODIUM 135 MMOL/L (135-145)
[2019-11-04 04:33] LABS: CALCIUM 8.8 MG/DL (8.5-10.1)
[2019-11-04 04:34] LABS: GLUCOSE 134 MG/DL (70-105)
[2019-11-04 04:35] LABS: TOTAL PROTEIN 7.6 GM/DL (6.4-8.2)
[2019-11-04 04:36] LABS: BILIRUBIN,TOTAL 0.7 MG/DL (0.1-1.0); CARBON DIOXIDE 26 MMOL/L (21-32)
[2019-11-04 04:38] LABS: ALKALINE PHOSPHATASE 114 U/L (40-136); CREATININE SERUM 1.12 MG/DL (0.60-1.30); GFR ESTIMATED > 60
[2019-11-04 04:39] LABS: BUN/CREATININE RATIO 9
[2019-11-04 04:41] LABS: ALANINE AMINOTRANSFERASE 203 U/L (0-55)
[2019-11-04 04:49] LABS: ANISOCYTOSIS SLIGHT; HYPOCHROMASIA SLIGHT; LYMPHOCYTES % (MANUAL) 5 %; MICROCYTOSIS SLIGHT; MONOCYTES % (MANUAL) 2 %; NEUTROPHILS % (MANUAL) 93 %; POIKILOCYTOSIS SLIGHT
--- NOTE | 2019-11-04 05:36 | Pulmonary Consultation ---
History of Present Illness History of Present Illness Date Seen by Provider: Nov 04, 2019 Time Seen by Provider: 05:32 Date of Admission Allergies and Home Medications Allergies Coded Allergies: No Known Drug Allergies (Unverified , 10/05/19) Home Medications Doxycycline Hyclate 100 Mg Tablet, 100 MG PO BID Prescribed by: EMERY KIDD on 10/05/19 4290 Past Smpuaoh-Ymjcid-Kriydh Hx Past Med/Social Hx: Reviewed and Corrections made Patient Social History Alcohol Use: Occasionally Uses Recreational Drug Use: Yes (THC, METH, COCAINE, "OTHERS" -DENIES IV USE) Drug of Choice: THC, METH, COCAINE, "OTHERS" DENIES IV USE Smoking Status: Never a Smoker 2nd Hand Smoke Exposure: Yes Recent Foreign Travel: No Contact w/Someone Who Travel: No Recent Infectious Disease Expo: No Recent Hopitalizations: No Immunizations Up To Date Tetanus Booster (TDap): Unknown Seasonal Allergies Seasonal Allergies: No Past Medical History Surgeries: No Respiratory: Yes Asthma Currently Using CPAP: No Currently Using BIPAP: No Cardiac: Yes Hypertension Neurological: No Sexually Transmitted Disease: Yes (Chlamydia) Genitourinary: No Gastrointestinal: No Musculoskeletal: No Endocrine: No HEENT: No Cancer: No Psychosocial: No Integumentary: No Blood Disorders: No Family Medical History HAS BEEN INCARCERATED--OUT OF [facility] 2019 Sepsis Event Evaluation Height, Weight, BMI Height: '" Weight: lbs. oz. kg; 28.00 BMI Method: Exam Exam Vital Signs Date Time Temp Pulse Resp B/P (MAP) Pulse Ox O2 Delivery O2 Flow Rate FiO2 11/04/19 04:30 35.7 90 97 28 11/04/19 04:28 Nasal Cannula 2.00 11/04/19 04:13 Nasal Cannula 2.00 11/04/19 03:54 90 11/04/19 03:51 35.7 88 24 117/83 (94) 96 Nasal Cannula 2.00 11/04/19 03:13 91 32 138/99 98 Nasal Cannula 2.00 11/04/19 01:35 36.6 105 36 158/118 99 Nasal Cannula 11/04/19 01:20 99 Nasal Cannula 2.00 11/04/19 00:30 37.2 110 24 178/132 (147) 94 Room Air I & O 11/04/19 07:00 Intake Total 260 ml Output Total 2500 ml Balance -2240 ml Height & Weight Height: '" Weight: lbs. oz. kg; 28.00 BMI Method: General Appearance: Anxious, Moderate Distress (HYPERVENTILATING. ANXIOUS, TALKS IN SHORT SENTENCES) Neck: Normal Inspection Respiratory: Accessory Muscle Use, Decreased Breath Sounds (IN BASE), Respiratory Distress ( MODERATE DISTRESS, ABLE TO TALK IN SHORT SENTENCES. RESPIRATORY RATE IN 50'S ON ARRIVAL), Wheezing (FAINT EXPIRATORY WHEEZING), Other (DRY COUGH) Cardiovascular: No Murmur, Normal Peripheral Pulses, Tachycardia (120'S) Capillary Refill: Less Than 3 Seconds Extremity: Normal Range of Motion, No Pedal Edema Neurologic/Psychiatric: Alert, Oriented x3, No Motor/Sensory Deficits, Other (VERY ANXIOUS) Skin: Normal Color (PT IS BLACK), Warm/Dry; No Diaphoresis Results Lab Laboratory Tests 11/04/19 00:35 11/04/19 04:10 Assessment/Plan Assessment/Plan Bilateral pneumonia -COVID is pending CP with LBBB -Cardiology is following Methamphetamine use -education CHF HTN EZEQUIEL SÁNCHEZ DO Nov 04, 2019 05:36
[2019-11-04 05:46] LABS: PHOSPHORUS 2.1 MG/DL (2.3-4.7)
[2019-11-04 05:48] LABS: MAGNESIUM 1.8 MG/DL (1.6-2.4)
--- NOTE | 2019-11-04 06:39 | Diagnostic Imaging Report ---
INDICATION: Cough and dyspnea Single AP view of the chest is obtained. There is extensive bilateral central airspace disease likely related to edema or possible pneumonitis. No pneumothorax is identified. There is no evidence of large pleural effusion. IMPRESSION: Bilateral airspace disease has central distribution likely representing pulmonary edema. Superimposed pneumonitis or atypical pneumonia cannot be excluded. Dictated by: Dictated on workstation # [id number]
--- NOTE | 2019-11-04 06:47 | NUR ---
Dr. Herrera cancelled repeat ABG.
[2019-11-04] MEDS ORDERED: FUROSEMIDE 40 MG/4 ML INJ (LASIX) IV ONE (07:00)
--- NOTE | 2019-11-04 07:11 | Diagnostic Imaging Report ---
PROCEDURE: CT angiography of the chest with contrast. TECHNIQUE: Multiple contiguous axial images were obtained through the chest after uneventful bolus administration of intravenous contrast. 3D reconstructed CTA MIP acquisitions were also performed. Auto Exposure Controls were utilized during the CT exam to meet ALARA standards for radiation dose reduction. INDICATION: Shortness of air, chest pain, pulmonary embolism COMPARISON: Imaging from the same date FINDINGS: No significant adenopathy within the chest. No aneurysmal dilatation of thoracic aorta. The heart is significantly enlarged. No significant bowing of the intraventricular septum. Trace pericardial effusion. Small right greater than left bilateral pleural effusions. No pneumothorax. Patchy geographic groundglass opacities are noted throughout the lungs bilaterally. This is greatest within the right lung. No significant filling defect within the central or segmental pulmonary arteries. Evaluation of subsegmental pulmonary arteries is limited secondary to respiratory motion. The minimally visualized upper abdomen is unremarkable. No acute osseous abnormality. IMPRESSION: No significant pulmonary embolus. Significant cardiomegaly with associated geographic groundglass opacities and bilateral pleural effusions. Findings are favored related to pulmonary edema. Superimposed infection would be an additional consideration. Trace pericardial fluid. Agree with preliminary interpretation. Dictated by: Dictated on workstation # [id number]
[2019-11-04] MEDS ORDERED: ADVAIR HFA 115/21 MCG INHALER 8 GM IH SCH (08:00)
--- NOTE | 2019-11-04 08:53 | History & Physical-Hospitalist ---
History of Present Illness HPI/Chief Complaint Pt is a 39yoCm with a PMH of asthma who presented to the ER due to SOB. He states that it started roughly 4 days ago after smoking meth. He had CP and SOB that worsened last night prompting him to seek evaluation in the ER. He has a history of asthma but has never been admitted to the hospital before for this. His only complaint today is that he's hungry. He denies any SOB or chest pain at the moment. Source: patient Date Seen 11/04/19 Time Seen by a Provider: 08:30 Attending Physician Marah Mcneill MD PCP No,Local Physician Referring Physician Date of Admission Nov 04, 2019 at 01:30 Home Medications & Allergies Home Medications Reviewed patient Home Medication Reconciliation performed by pharmacy medication reconciliations program technician and/or nursing. Patients Allergies have been reviewed. Allergies Allergies Coded Allergies No Known Drug Allergies (Unverified10/05/19) Past Ejhokti-Chwodt-Qmozgn Hx Past Med/Social Hx: Reviewed and Corrections made Patient Social History Alcohol Use: Occasionally Uses Recreational Drug Use: Yes (THC, METH, COCAINE, "OTHERS" -DENIES IV USE) Drug of Choice: THC, METH, COCAINE, "OTHERS" DENIES IV USE Smoking Status: Never a Smoker 2nd Hand Smoke Exposure: Yes Recent Foreign Travel: No Contact w/other who traveled: No Recent Hopitalizations: No Recent Infectious Disease Expo: No Social History HAS BEEN INCARCERATED--OUT OF JAIL 2018 Immunizations Up To Date Tetanus Booster (TDap): Unknown Seasonal Allergies Seasonal Allergies: No Past Medical History Respiratory: Asthma Currently Using CPAP: No Currently Using BIPAP: No Cardiac: Hypertension Sexually Transmitted Disease: Yes (Chlamydia) History of Blood Disorders: No Family History Reviewed Nursing Family Hx No Pertinent Family Hx Review of Systems Constitutional: No chills, No fever EENTM: no symptoms reported Respiratory: cough, short of breath Cardiovascular: chest pain Gastrointestinal: No abdominal pain, No constipation, No diarrhea, No nausea, No vomiting Genitourinary: No dysuria, No frequency Musculoskeletal: no symptoms reported Skin: no symptoms reported Psychiatric/Neurological: No Symptoms Reported Physical Exam Physical Exam Vital Signs Vital Signs - First Documented 11/04/19 11/04/19 11/04/19 00:30 01:20 04:30 Temp 37.2 Pulse 110 Resp 24 B/P (MAP) 178/132 (147) Pulse Ox 94 O2 Delivery Room Air O2 Flow Rate 2.00 FiO2 28 Capillary Refill : Less Than 3 Seconds Height, Weight, BMI Height: '" Weight: lbs. oz. kg; 28.00 BMI Method: General Appearance: No Apparent Distress, WD/WN, Thin HEENT: PERRL/EOMI, Moist Mucous Membranes; No Scleral Icterus (L), No Scleral Icterus (R) Neck: Normal Inspection, Supple Respiratory: No Accessory Muscle Use, No Respiratory Distress, Wheezing (scant) Cardiovascular: Regular Rate, Rhythm, No Murmur Gastrointestinal: Normal Bowel Sounds, Non Tender, Soft Extremity: No Calf Tenderness, No Pedal Edema Neurologic/Psychiatric: Alert, Oriented x3 Skin: Normal Color, Warm/Dry Results Results/Procedures Labs Laboratory Tests 11/04/19 00:35 11/04/19 04:10 Patient resulted labs reviewed. Imaging: Reviewed Imaging Report Imaging [facility], [place] NAME: CHERRIE CHUNG [facility] REC#: [id number] PT STATUS: ADM IN : 1980 PHYSICIAN: VALERIE BROWN DO ADMIT DATE: 11/04/19/ICU Draft Date of Exam:11/04/19 CT ANGIO CHEST W PROCEDURE: CT angiography of the chest with contrast. TECHNIQUE: Multiple contiguous axial images were obtained through the chest after uneventful bolus administration of intravenous contrast. 3D reconstructed CTA MIP acquisitions were also performed. Auto Exposure Controls were utilized during the CT exam to meet ALARA standards for radiation dose reduction. INDICATION: Shortness of air, chest pain, pulmonary embolism COMPARISON: Imaging from the same date FINDINGS: No significant adenopathy within the chest. No aneurysmal dilatation of thoracic aorta. The heart is significantly enlarged. No significant bowing of the intraventricular septum. Trace pericardial effusion. Small right greater than left bilateral pleural effusions. No pneumothorax. Patchy geographic groundglass opacities are noted throughout the lungs bilaterally. This is greatest within the right lung. No significant filling defect within the central or segmental pulmonary arteries. Evaluation of subsegmental pulmonary arteries is limited secondary to respiratory motion. The minimally visualized upper abdomen is unremarkable. No acute osseous abnormality. IMPRESSION: No significant pulmonary embolus. Significant cardiomegaly with associated geographic groundglass opacities and bilateral pleural effusions. Findings are favored related to pulmonary edema. Superimposed infection would be an additional consideration. Trace pericardial fluid. Agree with preliminary interpretation. Dictated on workstation # [id number] Dict: 11/04/19 0653 Trans: 11/04/19 0709 [facility] [place] [id number] Interpreted by: JULIEN MATIAS MD Electronically signed by: Assessment/Plan Admission Diagnosis Acute hypoxic Respiratory Failure Admission Status: Inpatient Order (span 2 midnights) Reason for Inpatient Admission: NSTEMI, hypoxic Assessment and Plan Acute hypoxic Respiratory Failure Bilateral pneumonia Asthma COVID PUI Continue on antibiotics Start prednisone Pulm consulted, appreciate recs COVID swab pending NSTEMI HTN Chest pain resolved tropinin trending down Echo ordered Cardiology consulted, appreciate recs Methamphetamine use Recommended cessation DISPOSITION: Patient elected to leave AMA prior to completing cardiac work up and before medical optimization. Diagnosis/Problems Diagnosis/Problems (1) Acute respiratory failure Status: Acute Qualifiers: Respiratory failure complication: hypoxia Qualified Codes: J96.01 - Acute respiratory failure with hypoxia (2) Methamphetamine abuse Status: Acute (3) NSTEMI (non-ST elevated myocardial infarction) Status: Acute (4) Transaminitis Status: Acute (5) Essential (primary) hypertension Status: Chronic (6) Lactic acidosis Status: Acute (7) Person under investigation for COVID-19 Status: Acute (8) Bilateral pneumonia Status: Acute Qualifiers: Pneumonia type: due to unspecified organism Lung location: unspecified part of lung Qualified Codes: J18.9 - Pneumonia, unspecified organism (9) Elevated troponin Status: Acute (10) HTN (hypertension) Status: Acute Qualifiers: Hypertension type: essential hypertension Qualified Codes: I10 - Essential (primary) hypertension Clinical Quality Measures DVT/VTE Risk/Contraindication: Risk Factor Score Per Nursin RFS Level Per Nursing on Admit: 1=Low/No VTE PPX SILVANA CALDERÓN MD Nov 04, 2019 08:53
[2019-11-04] MEDS ORDERED: CARVEDILOL 6.25 MG (COREG) TAB PO SCH (09:00)
[2019-11-04] MEDS ORDERED: ASPIRIN E.C. 81 MG (ECOTRIN) TAB PO SCH (09:00)
[2019-11-04] MEDS ORDERED: predniSONE 20 MG TAB PO ONE (09:15)
[2019-11-04] MEDS ORDERED: ENOXAPARIN 80 MG/0.8 ML (LOVENOX) SYR SC SCH (13:00)
--- NOTE | 2019-11-04 13:02 | Consultation-Cardiology ---
HPI-Cardiology Cardiology Consultation: Date of Consultation 11/04/19 Date of Admission Attending Physician Marah Mcneill MD Admitting Physician No,Local Physician Consulting Physician Arie MORTON MD HPI: Time Seen by a Provider: 11:00 Chief Complaint: Shortness of breath This is a 39-year-old gentleman who presents with complains of shortness of breath. He has history of active drug abuse including methamphetamine, cocaine. He denies active smoking but does me that his girlfriend smokes. Family history is not helpful since according to the patient he does not have any s iblings and his father and mother at the age of 4. He had some chest discomfort as well. He has history of asthma. He denies any cardiac history. He is treated as a COVID PUI. Review of Systems-Cardiology Review of Systems Constitutional: As described under HPI; No As described under HPI, No no symptoms reported, No chills, No fever, No lightheadedness Eyes: No As described under HPI, No no symptoms reported, No blindness, No blurred vision, No contact lenses, No drainage, No decreased acuity, No foreign body sensation, No pain, No vision change Ears/Nose/Throat: No As described under HPI, No no symptoms reported, No chronic hearing loss, No ear discharge, No ear pain, No nasal drainage, No ulcerations Respiratory: No no symptoms reported; As described under HPI; No As described under HPI, No cough, No orthopnea; shortness of breath; No SOB with excertion Cardiovascular: No no symptoms reported; As described under HPI; No As described under HPI; chest pain; No edema, No irregular heart rate, No lightheadedness, No palpitations Gastrointestinal: No no symptoms reported, No As described under HPI, No abdomen distended, No abdominal pain, No blood streaked bowels, No constipation, No diarrhea, No nausea, No vomiting, No stool coloration changes Genitourinary: No As described under HPI, No burning, No dysuria, No discharge, No frequency, No flank pain, No hematuria, No urgency Skin: No rash, No skin related problems, No ulcerations Psychiatric/Neurological: No anxiety, No depression, No seizure, No focal weakness, No syncope Hematologic: No bleeding abnormalities [id number] Hx Patient Social History Alcohol Use: Occasionally Uses Recreational Drug Use: Yes (THC, METH, COCAINE, "OTHERS" -DENIES IV USE) Drug of Choice: THC, METH, COCAINE, "OTHERS" DENIES IV USE Smoking Status: Never a Smoker 2nd Hand Smoke Exposure: Yes Recent Foreign Travel: No Recent Infectious Disease Expo: No Hospitalization with Isolation: Droplet Immunizations Up To Date Tetanus Booster (TDap): Unknown Past Medical History PMH As described under Assessment. Allergies and Home Medications Allergies Coded Allergies: No Known Drug Allergies (Unverified , 10/05/19) Home Medications Doxycycline Hyclate 100 Mg Tablet, 100 MG PO BID Prescribed by: EMERY KIDD on 10/05/19 6491 Patient Home Medication List Home Medication List Reviewed: Yes Physical Exam-Cardiology Physical Exam Vital Signs/I&O 11/04/19 11/04/19 11/04/19 11/04/19 01:20 01:35 03:13 03:51 Temp 36.6 35.7 Pulse 105 91 88 Resp 36 32 24 B/P (MAP) 158/118 138/99 117/83 (94) Pulse Ox 99 99 98 96 O2 Delivery Nasal Cannula Nasal Cannula Nasal Cannula Nasal Cannula O2 Flow Rate 2.00 2.00 2.00 11/04/19 11/04/19 11/04/19 11/04/19 03:54 04:00 04:13 04:15 Pulse 90 90 88 Resp 19 24 B/P (MAP) 116/79 (91) Pulse Ox 96 96 O2 Delivery Nasal Cannula Nasal Cannula Nasal Cannula O2 Flow Rate 2.00 2.00 2.00 11/04/19 11/04/19 11/04/19 11/04/19 04:28 04:30 04:30 04:45 Temp 35.7 Pulse 90 87 87 Resp 28 22 B/P (MAP) 117/72 (87) Pulse Ox 97 98 97 O2 Delivery Nasal Cannula Nasal Cannula Nasal Cannula O2 Flow Rate 2.00 2.00 2.00 FiO2 28 11/04/19 11/04/19 11/04/19 11/04/19 05:15 06:00 07:00 07:00 Pulse 87 84 80 80 Resp 23 22 35 B/P (MAP) 114/74 (87) 122/84 (97) Pulse Ox 97 98 94 O2 Delivery Nasal Cannula Nasal Cannula Nasal Cannula O2 Flow Rate 2.00 2.00 2.00 811/04/19 11/04/19 11/04/19 07:00 08:00 08:00 09:00 Temp 36.1 Pulse 80 82 Resp 27 18 B/P (MAP) 111/74 (86) 107/83 (91) Pulse Ox 98 96 97 O2 Delivery Nasal Cannula Room Air Nasal Cannula O2 Flow Rate 2.00 2.00 11/04/19 11/04/19 11/04/19 11/04/19 10:00 10:19 11:00 12:00 Temp 34.6 Pulse 85 80 Resp 26 21 B/P (MAP) 103/69 (80) 98/69 (79) Pulse Ox 97 96 95 O2 Delivery Nasal Cannula Nasal Cannula Nasal Cannula O2 Flow Rate 2.00 2.00 2.00 11/04/19 12:00 Pulse 80 Resp 18 B/P (MAP) 111/82 (92) Pulse Ox 95 O2 Delivery Nasal Cannula O2 Flow Rate 2.00 Capillary Refill : Less Than 3 Seconds Constitutional: appears stated age, AAO x 3; No apparent distress; well- developed, well-nourished HEENT: PERRL; No discharge; hearing is well preserved, oral hygience is good; No ulceration, No xanthelasmas are seen Neck: No carotid bruit; carotid pulses are 2 + bilaterally Respiratory: chest is bilaterally symmetric, lungs clear to auscultation Cardiovascular: regular rate-rhythm, S1 and S2; No diastolic murmur, No systol ic murmur Gastrointestinal: soft, audible bowel sounds; No spleenomegaly Rectal: deferred Extremities: normal range of motion, non-tender, normal inspection; No clubbing, No cyanosis; no lower extremity edema bilateral; No significant edema Neurologic/Psychiatric: no motor/sensory deficits, alert, normal mood/affect, oriented x 3, power is 5/5 both on sides Skin: normal color, warm/dry; No rash, No ulcerations Data Review Labs Laboratory Tests 11/04/19 00:15: Coronavirus 2019 (SANJEEV) Negative 11/04/19 00:35: White Blood Count 9.3, Red Blood Count 5.10, Hemoglobin 14.6, Hematocrit 44, Mean Corpuscular Volume 85, Mean Corpuscular Hemoglobin 29, Mean Corpuscular Hemoglobin Concent 34, Red Cell Distribution Width 13.6, Platelet Count 357, Mean Platelet Volume 9.6, Neutrophils (%) (Auto) 73, Lymphocytes (%) (Auto) 20, Monocytes (%) (Auto) 5, Eosinophils (%) (Auto) 1, Basophils (%) (Auto) 0, Neutrophils # (Auto) 6.8, Lymphocytes # (Auto) 1.9, Monocytes # (Auto) 0.5, Eosi nophils # (Auto) 0.1, Basophils # (Auto) 0.0, Prothrombin Time 15.3H, INR Comment 1.2, Activated Partial Thromboplast Time 29, D-Dimer 2.42H, Sodium Level 136, Potassium Level 3.9, Chloride Level 100, Carbon Dioxide Level 24, Anion Gap 12, Blood Urea Nitrogen 11, Creatinine 1.20, Estimat Glomerular Filtration Rate > 60, BUN/Creatinine Ratio 9, Glucose Level 131H, Calcium Level 8.8, Corrected Calcium 9.1, Magnesium Level 1.9, Total Bilirubin 0.6, Aspartate Amino Transf (AST/SGOT) 102H, Alanine Aminotransferase (ALT/SGPT) 206H, Alkaline Phosphatase 120, Lactate Dehydrogenase 338H, Total Creatine Kinase 302H, Creatine Kinase MB 5.3, Myoglobin 71.0, Troponin I 0.700*H, C-Reactive Protein High Sensitivity 7.15H, B-Type Natriuretic Peptide 2350.6H, Total Protein 7.3, Albumin 3.6, Amylase Level 40, Lipase 19, Procalcitonin 0.20H, Serum Alcohol < 10 11/04/19 00:40: Erythrocyte Sedimentation Rate 15, Lactic Acid Level 2.72*H 11/04/19 00:50: Blood Gas Puncture Site LEFT RADIAL, Blood Gas Patient Temperature 37.6, Arterial Blood pH 7.33*L, Arterial Blood Partial Pressure CO2 53H, Arterial Blood Partial Pressure O2 40L, Arterial Blood HCO3 27, Arterial Blood Total CO2 28.9, Arterial Blood Oxygen Saturation 50L, Arterial Blood Base Excess 2.1, Remy Test POSITIVE, Blood Gas Ventilator Setting NO, Blood Gas Inspired Oxygen RA 11/04/19 01:29: Urine Color YELLOW, Urine Clarity CLEAR, Urine pH 6.0, Urine Specific [place] 1.020, Urine Protein 2+H, Urine Glucose (UA) NEGATIVE, Urine Ketones NEGATIVE, Urine Nitrite NEGATIVE, Urine Bilirubin NEGATIVE, Urine Urobilinogen 1.0, Urine Leukocyte Esterase NEGATIVE, Urine RBC (Auto) TRACE-I, Urine RBC NONE, Urine WBC 0-2, Urine Squamous Epithelial Cells RARE, Urine Crystals NONE, Urine Bacteria NEGATIVE, Urine Casts NONE, Urine Mucus NEGATIVE, Urine Culture Indicated NO, Urine Opiates Screen NEGATIVE, Urine Oxycodone Screen NEGATIVE, Urine Methadone Screen NEGATIVE, Urine Propoxyphene Screen NEGATIVE, Urine Barbiturates Screen NEGATIVE, Ur Tricyclic Antidepressants Screen NEGATIVE, Urine Phencyclidine Screen NEGATIVE, Urine Amphetamines Screen POSITIVEH, Urine Methamphetamines Screen POSITIVEH, Urine Benzodiazepines Screen NEGATIVE, Urine Cocaine Screen NEGATIVE, Urine Cannabinoids Screen NEGATIVE 11/04/19 03:25: Lactic Acid Level 1.78 11/04/19 04:10: White Blood Count 12.2H, Red Blood Count 5.20, Hemoglobin 14.7, Hematocrit 44, Mean Corpuscular Volume 84, Mean Corpuscular Hemoglobin 28, Mean Corpuscular Hemoglobin Concent 34, Red Cell Distribution Width 13.7, Platelet Count 374, Mean Platelet Volume 9.9, Neutrophils (%) (Auto) 95H, Lymphocytes (%) (Auto) 4L, Monocytes (%) (Auto) 1, Eosinophils (%) (Auto) 0, Basophils (%) (Auto) 0, Neutrophils # (Auto) 11.5H, Lymphocytes # (Auto) 0.5L, Monocytes # (Auto) 0.1, Eosinophils # (Auto) 0.0, Basophils # (Auto) 0.0, Neutrophils % (Manual) 93, Lymphocytes % (Manual) 5, Monocytes % (Manual) 2, Hypochromasia SLIGHT, Poikilocytosis SLIGHT, Anisocytosis SLIGHT, Microcytosis SLIGHT, Sodium Level 135, Potassium Level 3.6, Chloride Level 98, Carbon Dioxide Level 26, Anion Gap 11, Blood Urea Nitrogen 10, Creatinine 1.12, Estimat Glomerular Filtration Rate > 60, BUN/Creatinine Ratio 9, Glucose Level 134H, Calcium Level 8.8, Corrected Calcium 9.0, Phosphorus Level 2.1L, Magnesium Level 1.8, Total Bilirubin 0.7, Aspartate Amino Transf (AST/SGOT) 101H, Alanine Aminotransferase (ALT/SGPT) 203H , Alkaline Phosphatase 114, Troponin I 0.561*H, Total Protein 7.6, Albumin 3.7 ECG Impression ECG Initial ECG Rhythm: Normal Sinus Comment LBBB A/P-Cardiology Assessment/Admission Diagnosis Shortness of breath, Bilateral pneumonia, Suspected COVID-19, Acute congestive heart failure, Chest pain, positive troponin, possible non-STEMI, Active drug abuse, Lactic acidosis, Acute liver injury, Positive D dimer Plan Shortness of breath, multifactorial. Likely due to bilateral pneumonia. However congestive heart failure cannot be ruled out. Bilateral pneumonia, Suspected COVID-19, defer to the primary team. Normal saturation on 2 L nasal cannula. Acute congestive heart failure, echocardiogram when COVID results are available. No Lasix for now since patient has sepsis. Chest pain, positive troponin, possible non-STEMI, coronary angiography after COVID results are available. Active drug abuse, strongly recommended to quit. Lactic acidosis, likely due to sepsis. Acute liver injury, unclear etiology. Positive D dimer, CT angiography was negative for PE. Thank you for your consultation. Please call me if you have any questions. William Morton MD, FACP, FACC, FSCAI, FHRS, CCDS Interventional Cardiology Cardiac Electrophysiology Vascular Medicine and Endovascular Interventions Clinical Quality Measures DVT/VTE Risk/Contraindication: Risk Factor Score Per Nursin RFS Level Per Nursing on Admit: 1=Low/No VTE PPX Arie MORTON MD Nov 04, 2019 13:02
[2019-11-04] MEDS ORDERED: ENOXAPARIN 100 MG/1 ML (LOVENOX) SYR SC SCH (13:30)
--- NOTE | 2019-11-04 13:32 | NUR ---
pt left AMA /papers signed and placed on chart. Dr. Leach and Dr. Morton notified
[2019-11-04] MEDS ORDERED: AZITHROMYCIN 250 MG TAB (ZITHROMAX) PO SCH (21:00)
[2019-11-04] MEDS ORDERED: cefTRIAXone 1,000 MG/SWFI 10 ML IV PUSH IV SCH ×2 (21:00)
[2019-11-05] MEDS ORDERED: predniSONE 20 MG TAB PO SCH (07:00)
--- NOTE | 2019-11-06 23:26 | Physician Query Clarification ---
PQ-Present on Admission Admission/Discharge Admission Date: Nov 04, 2019 at 01:30 Discharge Date: Nov 04, 2019 at 13:15 Jolie Lo MD Question: Sepsis was documented in Cardiology consultation, 11/03. Can you specify if this condition was present on admission? Please document a response in Progress Note or Discharge Summary. 1. Yes - Condition was present at the time of inpatient admission. 2. No - Condition was not present at the time of inpatient admission and it developed during the inpatient stay. 3. W - Provider is unable to clinically determine whether condition was present on admission or not. 4. Other [please specify] PHYSICIAN RESPONSE Explanation of clincal finding History/Risk factors: 69 y/o male patient admitted with SOB, found to have bilateral pneumonia and Acute respiratory failure and COVID PUI continue antibiotics . Hand P, 11/03: bilateral pneumonia and Acute respiratory failure and COVID PUI continue antibiotics .Covid swab is pending, lactic acidosis and person under investigation of COVID-19 Cardiology consultation, 11/03: Bilateral pneumonia, Suspected COVID-19, defer to the primary team. Normal saturation on 2 L nasal cannula., Acute congestive heart failure, echocardiogram when COVID results are available. No Lasix for now since patient has sepsis. Clinical findings: Lactic acid- 2.72 H, Pulse-110, RR- 24 Treatment: IV ABX Please remember a lack of response to the above will prompt a phone page by CDI/Coding staff. In responding to this query, please exercise your independent professional judgment. The purpose of this communication is to more accurately reflect the complexity of your patients condition. The fact that a question is asked does not imply that any particular answer is desired or expected. Thank you for your timely response to this clarification. Requestors name: [Bryant Leslie ] Phone # [ ] THIS PHYSICIAN QUERY FORM IS A PERMANENT PART OF THE MEDICAL RECORD LESLIE JAMES Nov 06, 2019 23:26
== END 2019-11-04 13:15 | disposition left against medical advice (07) | DRG 280 ==
LOC: EDUNIT# 00:25 → ER 00:28 → ICU 01:30
PROVIDERS: ADMIT Internal Medicine; ATTEND Internal Medicine
DX: I21.4 Non-ST elevation (NSTEMI) myocardial infarction (principal); A41.9 Sepsis, unspecified organism; J18.9 Pneumonia, unspecified organism; J96.01 Acute respiratory failure with hypoxia; E87.2 Acidosis; N17.9 Acute kidney failure, unspecified; Z20.828 Contact with and (suspected) exposure to other viral communicable diseases; I11.0 Hypertensive heart disease with heart failure; I44.7 Left bundle-branch block, unspecified; I50.9 Heart failure, unspecified; F15.90 Other stimulant use, unspecified, uncomplicated; J45.909 Unspecified asthma, uncomplicated
CPT/HCPCS: 36415; 71045; 71275; 80053; 80306; 80320; 81000; 82150; 82550; 82553; 82805; 83605; 83615; 83690; 83735; 83874; 83880; 84100; 84145; 84484; 85007; 85025; 85027; 85379; 85610; 85652; 85730; 86141; 87040; 87081; 87635; 93005; 93041; 96365; 96366; 96372; 96375; 99291

== ENCOUNTER 2019-11-14 23:53 | Emergency (ER) | payer SELFPAY ==
[~2019-11-14] VITALS: Ht 172.7 cm; Wt 78.5 kg
[2019-11-15 00:21] LABS: BASOPHILS % (AUTO) 0 % (0-10); EOSINOPHILS # (AUTO) 0.1 10^3/uL (0.0-0.3); EOSINOPHILS % (AUTO) 2 % (0-10); HEMATOCRIT 41 % (40-54); HEMOGLOBIN 13.1 G/DL (13.3-17.7); LYMPHOCYTES # (AUTO) 1.6 X 10^3 (1.0-4.0); LYMPHOCYTES % (AUTO) 22 % (12-44); MEAN CORPUSCULAR HEMOGLOBIN 28 PG (25-34); MEAN CORPUSCULAR HGB CONC 32 G/DL (32-36); MEAN CORPUSCULAR VOLUME 89 FL (80-99); MEAN PLATELET VOLUME 9.8 FL (7.4-10.4); MONOCYTES # (AUTO) 0.4 X 10^3 (0.0-1.0); MONOCYTES % (AUTO) 6 % (0-12); NEUTROPHILS % (AUTO) 70 % (42-75); PLATELET COUNT 346 10^3/uL (130-400); WHITE BLOOD COUNT 7.1 10^3/uL (4.3-11.0)
--- NOTE | 2019-11-15 00:21 | ED Cardiac General ---
History of Present Illness General Chief Complaint: Cardiac/General Problems Stated Complaint: ELEV BP Nursing Triage Note: PT AMBULATE TO ROOM FS01 WITH C/O HYPERTENSION. PT REPORTS BP OF 134/107 AT HOME. PT HAS HX OF NSTEMI. PT REPORTS TAKING A "REPUBLICAN DRINK" A COUPLE DAYS AGO AND DENIES USING DRUGS. History of Present Illness Date Seen by Provider: Nov 15, 2019 Time Seen by Provider: 23:55 Initial Comments The patient is a 39-year-old male with a history of hypertension, asthma and polysubstance abuse. About 10 days ago he presented to [facility] emergency department in acute hypoxemic respiratory failure, complaining of shortness of air and requiring nasal cannula oxygen to maintain saturation. Large laboratory and imaging workup in the emergency department at [facility] revealed cardiomegaly with bilateral pleural effusions and pulmonary edema, troponin elevation, significant BNP elevation and amphetamine and methamphetamine positivity on UDS. Patient was initially considered a COVID PUI however COVID testing was negative. He was admitted for medical management of NSTEMI and probable heart failure exacerbation but left AGAINST MEDICAL ADVICE before cardiology evaluation was complete. Patient presents the emergency department today with concern for elevated blood pressure at home. He states that he was motivated to check his blood pressure because he has not had his blood pressure medicine for a long time and his family told him that that could cause health problems. Blood pressure is modestly elevated with a diastolic pressure of 110 upon initial evaluation here in the emergency department. Other vital signs are appropriate. Patient denies fevers, nausea or vomiting, upper respiratory congestion/rhinorrhea, cough, shortness of breath or chest pain of any kind, abdominal pain, flank pain, back pain. He states that the shortness of breath that prompted his visit to the emergency department 10 days ago has gotten better. Oxygen saturation is 98% on room air. Allergies and Home Medications Allergies Coded Allergies: No Known Drug Allergies (Unverified , 10/05/19) Home Medications Doxycycline Hyclate 100 Mg Tablet, 100 MG PO BID Prescribed by: EMERY KIDD on 10/05/19 8770 Patient Home Medication List Home Medication List Reviewed: Yes Review of Systems Review of Systems Constitutional: see HPI All Other Systems Reviewed Negative Unless Noted: Yes (Negative excepted noted.) Past Otlgljr-Egazjl-Vsdjtz Hx Past Med/Social Hx: Reviewed Nursing Past Med/Soc Hx Patient Social History Alcohol Use: Denies Use Recreational Drug Use: Yes Drug of Choice: THC, METH, COCAINE, "OTHERS" DENIES IV USE Smoking Status: Never a Smoker 2nd Hand Smoke Exposure: Yes Recent Foreign Travel: No Contact w/Someone Who Travel: No Recent Infectious Disease Expo: No Recent Hopitalizations: No Physical Abuse: No Sexual Abuse: No Mistreated: No Fear: No Immunizations Up To Date Tetanus Booster (TDap): Unknown Seasonal Allergies Seasonal Allergies: No Past Medical History Surgeries: No Respiratory: Yes Asthma Currently Using CPAP: No Currently Using BIPAP: No Cardiac: Yes Heart Attack, Hypertension Neurological: No Sexually Transmitted Disease: Yes (Chlamydia) Genitourinary: No Gastrointestinal: No Musculoskeletal: No Endocrine: No HEENT: No Cancer: No Psychosocial: No Integumentary: No Blood Disorders: No Family Medical History Reviewed Nursing Family Hx No Pertinent Family Hx Physical Exam Vital Signs Vital Signs - First Documented 11/15/19 00:05 Temp 36.3 Pulse 97 Resp 21 B/P (MAP) 125/110 (115) O2 Delivery Room Air Capillary Refill : Less Than 3 Seconds Height, Weight, BMI Height: '" Weight: lbs. oz. kg; 26.00 BMI Method: General Appearance: No Apparent Distress Other comments This is a middle-aged -[place] male appearing nontoxic and in no acute distress. Head is normocephalic and atraumatic. Neck is supple and nontender. Oropharynx is moist. Lungs are clear to auscultation at all stations. There is a normal S1 and S2 without rubs or gallops and capillary refill is appropriate, less than 2 seconds globally. Abdomen is soft, nontender nondistended. Skin is warm and dry without cyanosis, clubbing or edema. Psychiatrically, the patient demonstrates appropriate mood and affect and is alert. No dependent peripheral edema to bilateral lower extremities which are neurovascularly intact with 2+ pulses noted to DP and PTs bilat Progress/Results/Core Measures Results/Orders Lab Results Laboratory Tests Test 11/15/19 00:10 11/15/19 00:39 Range/Units White Blood Count 7.1 4.3-11.0 10^3/uL Red Blood Count 4.61 4.35-5.85 10^6/uL Hemoglobin 13.1 L 13.3-17.7 G/DL Hematocrit 41 40-54 % Mean Corpuscular Volume 89 80-99 FL Mean Corpuscular Hemoglobin 28 25-34 PG Mean Corpuscular Hemoglobin Concent 32 32-36 G/DL Red Cell Distribution Width 14.0 10.0-14.5 % Platelet Count 346 130-400 10^3/uL Mean Platelet Volume 9.8 7.4-10.4 FL Neutrophils (%) (Auto) 70 42-75 % Lymphocytes (%) (Auto) 22 12-44 % Monocytes (%) (Auto) 6 0-12 % Eosinophils (%) (Auto) 2 0-10 % Basophils (%) (Auto) 0 0-10 % Neutrophils # (Auto) 5.0 1.8-7.8 X 10^3 Lymphocytes # (Auto) 1.6 1.0-4.0 X 10^3 Monocytes # (Auto) 0.4 0.0-1.0 X 10^3 Eosinophils # (Auto) 0.1 0.0-0.3 10^3/uL Basophils # (Auto) 0.0 0.0-0.1 10^3/uL Prothrombin Time 14.0 12.2-14.7 SEC INR Comment 1.0 0.8-1.4 Activated Partial Thromboplast Time 29 24-35 SEC Sodium Level 138 135-145 MMOL/L Potassium Level 4.3 3.6-5.0 MMOL/L Chloride Level 102 98-107 MMOL/L Carbon Dioxide Level 26 21-32 MMOL/L Anion Gap 10 5-14 MMOL/L Blood Urea Nitrogen 17 7-18 MG/DL Creatinine 1.42 H 0.60-1.30 MG/DL Estimat Glomerular Filtration Rate > 60 BUN/Creatinine Ratio 12 Glucose Level 131 H 70-105 MG/DL Calcium Level 9.2 8.5-10.1 MG/DL Corrected Calcium 9.6 8.5-10.1 MG/DL Total Bilirubin 0.9 0.1-1.0 MG/DL Aspartate Amino Transf (AST/SGOT) 60 H 5-34 U/L Alanine Aminotransferase (ALT/SGPT) 69 H 0-55 U/L Alkaline Phosphatase 118 40-136 U/L Troponin I < 0.30 <0.30 NG/ML Pro-B-Type Natriuretic Peptide 6553.0 H <75.0 PG/ML Total Protein 6.3 L 6.4-8.2 GM/DL Albumin 3.5 3.2-4.5 GM/DL Serum Alcohol < 10 <10 MG/DL Urine Opiates Screen NEGATIVE NEGATIVE Urine Oxycodone Screen NEGATIVE NEGATIVE Urine Methadone Screen NEGATIVE NEGATIVE Urine Propoxyphene Screen NEGATIVE NEGATIVE Urine Barbiturates Screen NEGATIVE NEGATIVE Ur Tricyclic Antidepressants Screen NEGATIVE NEGATIVE Urine Phencyclidine Screen NEGATIVE NEGATIVE Urine Amphetamines Screen POSITIVE H NEGATIVE Urine Methamphetamines Screen POSITIVE H NEGATIVE Urine Benzodiazepines Screen NEGATIVE NEGATIVE Urine Cocaine Screen NEGATIVE NEGATIVE Urine Cannabinoids Screen NEGATIVE NEGATIVE My Orders Orders - JOSHUA PORTILLO MD Cbc With Automated Diff (11/15/19 00:08) Comprehensive Metabolic Panel (11/15/19 00:08) Troponin I Fs (11/15/19:08) Ekg Tracing (11/15/19:08) Chest 1 View Ap/Pa Only (11/15/19:08) Protime With Inr (11/15/19:08) Partial Thromboplastin Time (11/15/19:08) Probnp Fs (11/15/19 00:08) Drug Screen Stat (Urine) (11/15/19 00:08) Alcohol (11/15/19 00:08) Vital Signs/I&O 11/15/19 00:05 Temp 36.3 Pulse 97 Resp 21 B/P (MAP) 125/110 (115) O2 Delivery Room Air Blood Pressure Mean: 115 Progress Progress Note : Progress Note 39-year-old gentleman who presents for evaluation of elevated blood pressure at home. In talking with him further about the reason for his presentation today, he states that his family have been encouraging him to return to the hospital after he left against advice 10 days ago. No chest pain or shortness of breath today but he does admit to using drugs 2 days ago. Patient did have an NSTEMI 10 days ago of unclear etiology as planned echocardiogram and coronary angiography could not be completed due to the patient's AMA departure. Discussed with the patient that we have a second opportunity for the indicated cardiac workup with his return visit. We will check labs and EKG and chest x-ray and plan for transfer back to [facility] for further care, to include cardiology evaluation and further testing as previously planned. Patient is in agreement with this plan of care. 0100: Workup is complete and reveals mild acute renal insufficiency with a creatinine of 1.4, normal troponin, mild transaminase anemia, markedly elevated BNP with significantly improved vascular congestion on chest x-ray versus at his hospitalization 10 days ago, amphetamine and methamphetamine positivity again seen on UDS. No evidence of ACS or decompensated heart failure exacerbation at this time however feel that this patient is at high risk for decompensation given multiple lab dyscrasias as above, lack of any appropriate outpatient prescription medication, lack of outpatient primary care or cardiology follow- up, and deficits in insight regarding his chronic health conditions. Given the above, feel that the patient will benefit from observation admission to facilitate cardiology consultation and further workup to elucidate the etiology of his heart failure and NSTEMI 10 days ago. We will admit to [facility]. Dr. Hernandez graciously accepts. Patient demands to transfer by private vehicle and adamantly and repeatedly refuses ambulance transfer to [facility]. He understands that he is at risk for decompensation, permanent disability and even in declining ambulance transfer. He is able to restate these risks in his own words and increased to be wholly and repulse solely responsible for them in their entirety. His IV will be discontinued, he will sign AGAINST MEDICAL ADVICE paperwork and will transfer by private car to [facility] for admission per his request. He states a family member will drive him directly there. Comment Left bundle branch block, no acute ST elevation or depression, EP interpretation. No significant change versus recent prior EKGs. Diagnostic Imaging Comments Cardiomegaly. Improved vascular congestion versus at recent prior plain chest imaging. No consolidation or pneumothorax. EP interpretation. Departure Impression Primary Impression: Heart failure Qualified Codes: I50.21 - Acute systolic (congestive) heart failure Additional Impressions: Methamphetamine abuse Acute renal insufficiency Disposition: ADMITTED INPATIENT Condition: Stable Departure-Patient Inst. Referrals: NO,LOCAL PHYSICIAN (PCP/Family) Primary Care Physician JOSHUA PORTILLO MD Nov 15, 2019 00:21
--- NOTE | 2019-11-15 00:35 | NUR ---
PT AMBULATE TO BATHROOM.
[2019-11-15 00:50] LABS: BILIRUBIN,TOTAL 0.9 MG/DL (0.1-1.0); BUN/CREATININE RATIO 12; CALCIUM 9.2 MG/DL (8.5-10.1); CARBON DIOXIDE 26 MMOL/L (21-32); CHLORIDE 102 MMOL/L (98-107); CREATININE SERUM 1.42 MG/DL (0.60-1.30); GFR ESTIMATED > 60; GLUCOSE 131 MG/DL (70-105); POTASSIUM 4.3 MMOL/L (3.6-5.0); SODIUM 138 MMOL/L (135-145)
[2019-11-15 00:51] LABS: ALANINE AMINOTRANSFERASE 69 U/L (0-55); ALBUMIN 3.5 GM/DL (3.2-4.5); ALKALINE PHOSPHATASE 118 U/L (40-136); TOTAL PROTEIN 6.3 GM/DL (6.4-8.2)
--- NOTE | 2019-11-15 00:55 | NUR ---
PT SLEEPING IN BED.
[2019-11-15 00:59] LABS: BENZODIAZEPINES SCREEN URINE NEGATIVE (NEGATIVE); CANNABINOID SCREEN, URINE NEGATIVE (NEGATIVE); OPIATE SCREEN URINE NEGATIVE (NEGATIVE)
[2019-11-15 01:00] LABS: AMPHETAMINE SCREEN, URINE POSITIVE (NEGATIVE); BARBITURATE SCREEN URINE NEGATIVE (NEGATIVE); COCAINE SCREEN URINE NEGATIVE (NEGATIVE); METHADONE STAT NEGATIVE (NEGATIVE); METHAMPHETAMINE SCREEN URINE S POSITIVE (NEGATIVE); OXYCODONE STAT NEGATIVE (NEGATIVE); PROPOXYPHENE STAT NEGATIVE (NEGATIVE); TRICYCLIC ANTIDEPRESSANTS SCRE NEGATIVE (NEGATIVE)
--- NOTE | 2019-11-15 01:19 | NUR ---
PT REQUESTED TO TRASPORT TO [facility] BY POV. THIS RN SPOKE WITH PROVIDER AND AND PROVIDER STATES THAT HE IS WILLING TO LET THE PT GET A RIDE TO [facility] FROM A FRIEND. PT INFORMED OF THIS INFORMATION.
--- NOTE | 2019-11-15 01:28 | NUR ---
PT STATED THAT HE "HAS SOME STUFF TO TAKE CARE OF" BEFORE GOING TO [facility]. PROVIDER INFORMED AND PROVIDER SPOKE WITH PT. PROVIDER STATES PT CAN GET POV TRANSPORT TO [facility].
--- NOTE | 2019-11-15 01:42 | NUR ---
PT'S IV PULLED AND INSTRUCTED TO HEAD DIRECTLY TO [facility]. PT'S FRIEND CONTACTED AND FRIEND STATES THAT HE IS WILLING TO TAKE PT TO [facility].
--- NOTE | 2019-11-15 01:47 | NUR ---
DIRECT MAIL MANAGER CONTACTED AND INFORMED THAT PT IS COMING POV.
[2019-11-15 02:00] VITALS: BP 139/101
--- NOTE | 2019-11-15 06:06 | Diagnostic Imaging Report ---
CLINICAL INDICATION: Patient hypertension, patient has history of non-STEMI. EXAM: Portable chest x-ray upright view. COMPARISONS: Chest x-ray dated 10/29/2019. FINDINGS: Lungs/pleura: There is interval improved aeration of both lungs compared to prior study. There are subtle airspace opacities throughout both lungs to remaining. There is no pneumothorax. There is no pleural effusion. Mediastinum: Unremarkable. Pulmonary vasculature: Unremarkable. Heart: There is stable cardiomegaly. Bones/extrathoracic soft tissue: There are degenerative spurs involving the lower thoracic spine. IMPRESSION: 1: There is interval improved aeration of both lungs with residual subtle airspace opacities present which may represent residual pneumonia. 2: Stable cardiomegaly with no significant pulmonary vascular congestion. Dictated by: Dictated on workstation # [id number]
== END 2019-11-15 01:49 | disposition still patient (30) ==
LOC: EDUNIT# 23:53 → ER FS 23:56
DX: I50.9 Heart failure, unspecified (principal); F15.10 Other stimulant abuse, uncomplicated; N28.9 Disorder of kidney and ureter, unspecified; I25.2 Old myocardial infarction; Z77.22 Contact with and (suspected) exposure to environmental tobacco smoke (acute) (chronic); Z88.1 Allergy status to other antibiotic agents; Z20.828 Contact with and (suspected) exposure to other viral communicable diseases
CPT/HCPCS: 36415; 71045; 80053; 80306; 83880; 84484; 85025; 85610; 85730; 93005; 99283; G0480; 80320

== ENCOUNTER 2019-11-16 13:21 | Inpatient (IN) | payer SELFPAY ==
[~2019-11-16] VITALS: Ht 176 cm; Wt 84.0 kg
[2019-11-16] MEDS ORDERED: FUROSEMIDE 40 MG/4 ML INJ (LASIX) ONE (13:47)
[2019-11-16] MEDS ORDERED: FUROSEMIDE 40 MG/4 ML INJ (LASIX) IV STA (13:48)
[2019-11-16] MEDS ORDERED: ASPIRIN 81 MG CHEW (CHILDREN'S ASA) PO ONE ×2 (14:00→16:00)
[2019-11-16 14:02] LABS: BASOPHILS % (AUTO) 0 % (0-10); EOSINOPHILS # (AUTO) 0.1 10^3/uL (0.0-0.3); EOSINOPHILS % (AUTO) 1 % (0-10); HEMATOCRIT 39 % (40-54); HEMOGLOBIN 12.6 G/DL (13.3-17.7); LYMPHOCYTES # (AUTO) 1.1 X 10^3 (1.0-4.0); LYMPHOCYTES % (AUTO) 12 % (12-44); MEAN CORPUSCULAR HEMOGLOBIN 29 PG (25-34); MEAN CORPUSCULAR HGB CONC 32 G/DL (32-36); MEAN CORPUSCULAR VOLUME 89 FL (80-99); MEAN PLATELET VOLUME 10.3 FL (7.4-10.4); MONOCYTES # (AUTO) 0.4 X 10^3 (0.0-1.0); MONOCYTES % (AUTO) 4 % (0-12); NEUTROPHILS # (AUTO) 7.2 X 10^3 (1.8-7.8); NEUTROPHILS % (AUTO) 83 % (42-75); PLATELET COUNT 306 10^3/uL (130-400); WHITE BLOOD COUNT 8.8 10^3/uL (4.3-11.0)
[2019-11-16 14:15] LABS: ALANINE AMINOTRANSFERASE 329 U/L (0-55); ALBUMIN 3.5 GM/DL (3.2-4.5); ALKALINE PHOSPHATASE 132 U/L (40-136); BUN/CREATININE RATIO 12; CALCIUM 8.6 MG/DL (8.5-10.1); CARBON DIOXIDE 23 MMOL/L (21-32); CHLORIDE 102 MMOL/L (98-107); GFR ESTIMATED > 60; GLUCOSE 143 MG/DL (70-105); MAGNESIUM 1.8 MG/DL (1.6-2.4); POTASSIUM 4.7 MMOL/L (3.6-5.0); SODIUM 136 MMOL/L (135-145); TOTAL PROTEIN 6.4 GM/DL (6.4-8.2)
[2019-11-16 14:41] LABS: PROTHROMBIN TIME PATIENT 13.5 SEC (12.2-14.7)
--- NOTE | 2019-11-16 14:57 | ED Respiratory ---
General Chief Complaint: Respiratory Problems Stated Complaint: SOA NAUSEA/VOMITING Nursing Triage Note: shortness of air and vomitting. patient left AMA from [facility] 10 days ago for non stemi. patient was seen in [facility] [facility] yesterday. Source: patient Exam Limitations: no limitations History of Present Illness Date Seen by Provider: Nov 16, 2019 Time Seen by Provider: 13:50 Initial Comments Here with report of shortness of air. Also has vomiting. Was seen yesterday at [facility] and left AGAINST MEDICAL ADVICE. Also seen 10 days ago here for non- STEMI and left AGAINST MEDICAL ADVICE. Both times found to have heart failure. Previously been tested for COVID-19 on earlier visit which was negative. Denies new symptoms or exposure COVID-19. Does admit to using methamphetamine. He has the shortness of air but no chest pain. Denies fevers or chills. Denies sore throat or runny nose. Initial O2 sat 88% on arrival. Timing/Duration: week, getting worse Severity: moderate Prior Episodes/Possible Cause: occasional episodes Modifying Factors: Worse With Activity; Improves With Oxygen, Improves With Rest Associated Symptoms: No chest pain/soreness, No cough, No fever/chills, No muscle aches, No nasal congestion; shortness of breath; No sinus infection, No sore throat, No wheezing Allergies and Home Medications Allergies Coded Allergies: No Known Drug Allergies (Unverified , 10/05/19) Home Medications Doxycycline Hyclate 100 Mg Tablet, 100 MG PO BID Prescribed by: EMERY KIDD on 10/05/19 1522 Patient Home Medication List Home Medication List Reviewed: Yes Review of Systems Review of Systems Constitutional: see HPI; No chills, No fever EENTM: no symptoms reported Respiratory: No cough; orthopnea, short of breath Cardiovascular: No chest pain, No edema Gastrointestinal: No abdominal pain, No nausea, No vomiting Genitourinary: No dysuria, No pain Musculoskeletal: no symptoms reported Skin: no symptoms reported All Other Systems Reviewed Negative Unless Noted: Yes Past Lgsoeli-Uyruhg-Apxssr Hx Past Med/Social Hx: Reviewed Nursing Past Med/Soc Hx Patient Social History Alcohol Use: Rarely Uses Recreational Drug Use: Yes Drug of Choice: THC, METH, COCAINE, "OTHERS" DENIES IV USE 2nd Hand Smoke Exposure: Yes Recent Foreign Travel: No Contact w/Someone Who Travel: No Recent Infectious Disease Expo: No Recent Hopitalizations: No Immunizations Up To Date Tetanus Booster (TDap): Unknown Seasonal Allergies Seasonal Allergies: No Past Medical History Surgeries: No Respiratory: Yes Asthma Currently Using CPAP: No Currently Using BIPAP: No Cardiac: Yes Heart Attack, Hypertension Neurological: No Sexually Transmitted Disease: Yes (Chlamydia) Genitourinary: No Gastrointestinal: No Musculoskeletal: No Endocrine: No HEENT: No Cancer: No Psychosocial: No Integumentary: No Blood Disorders: No Family Medical History Reviewed Nursing Family Hx No Pertinent Family Hx Physical Exam Vital Signs - First Documented 11/16/19 13:23 Temp 36.8 Pulse 112 Resp 20 B/P (MAP) 156/110 (125) Pulse Ox 94 O2 Delivery Nasal Cannula O2 Flow Rate 2.00 Capillary Refill : NONE Height: '" Weight: lbs. oz. kg; 27.00 BMI Method: General Appearance: WD/WN, no apparent distress HEENT: PERRL/EOMI, pharynx normal Neck: full range of motion, supple Respiratory: no accessory muscle use, crackles Cardiovascular: regular rate, rhythm, tachycardia Gastrointestinal: non tender, soft Extremities: non-tender, normal inspection Neurologic/Psychiatric: alert, oriented x 3 Skin: normal color, warm/dry Progress/Results/Core Measures Suspected Sepsis Recent Fever Within 48 Hours: No Infection Criteria Present: Suspected New Infection New/Unexplained Altered Menta: No Sepsis Screen: No Definite Risk SIRS Temperature: Pulse: 112 Respiratory Rate: 20 Laboratory Tests 11/16/19 13:39: White Blood Count 8.8 Blood Pressure 156 /110 Mean: 125 Laboratory Tests 11/16/19 13:39: Creatinine 1.20, Platelet Count 306, Total Bilirubin 1.0 11/16/19 14:10: INR Comment 1.0 Results/Orders Lab Results Laboratory Tests Test 11/16/19 13:39 11/16/19 14:10 Range/Units White Blood Count 8.8 4.3-11.0 10^3/uL Red Blood Count 4.41 4.35-5.85 10^6/uL Hemoglobin 12.6 L 13.3-17.7 G/DL Hematocrit 39 L 40-54 % Mean Corpuscular Volume 89 80-99 FL Mean Corpuscular Hemoglobin 29 25-34 PG Mean Corpuscular Hemoglobin Concent 32 32-36 G/DL Red Cell Distribution Width 14.2 10.0-14.5 % Platelet Count 306 130-400 10^3/uL Mean Platelet Volume 10.3 7.4-10.4 FL Neutrophils (%) (Auto) 83 H 42-75 % Lymphocytes (%) (Auto) 12 12-44 % Monocytes (%) (Auto) 4 0-12 % Eosinophils (%) (Auto) 1 0-10 % Basophils (%) (Auto) 0 0-10 % Neutrophils # (Auto) 7.2 1.8-7.8 X 10^3 Lymphocytes # (Auto) 1.1 1.0-4.0 X 10^3 Monocytes # (Auto) 0.4 0.0-1.0 X 10^3 Eosinophils # (Auto) 0.1 0.0-0.3 10^3/uL Basophils # (Auto) 0.0 0.0-0.1 10^3/uL Sodium Level 136 135-145 MMOL/L Potassium Level 4.7 3.6-5.0 MMOL/L Chloride Level 102 98-107 MMOL/L Carbon Dioxide Level 23 21-32 MMOL/L Anion Gap 11 5-14 MMOL/L Blood Urea Nitrogen 14 7-18 MG/DL Creatinine 1.20 0.60-1.30 MG/DL Estimat Glomerular Filtration Rate > 60 BUN/Creatinine Ratio 12 Glucose Level 143 H 70-105 MG/DL Calcium Level 8.6 8.5-10.1 MG/DL Corrected Calcium 9.0 8.5-10.1 MG/DL Magnesium Level 1.8 1.6-2.4 MG/DL Total Bilirubin 1.0 0.1-1.0 MG/DL Aspartate Amino Transf (AST/SGOT) 286 H 5-34 U/L Alanine Aminotransferase (ALT/SGPT) 329 H 0-55 U/L Alkaline Phosphatase 132 40-136 U/L Lactate Dehydrogenase 566 H 125-220 U/L Myoglobin 82.6 10.0-92.0 NG/ML Troponin I 0.037 H <0.028 NG/ML C-Reactive Protein High Sensitivity 4.03 H 0.00-0.50 MG/DL B-Type Natriuretic Peptide 2457.4 H <100.0 PG/ML Total Protein 6.4 6.4-8.2 GM/DL Albumin 3.5 3.2-4.5 GM/DL Procalcitonin 0.13 H <0.10 NG/ML Erythrocyte Sedimentation Rate 9 0-15 MM/HR Prothrombin Time 13.5 12.2-14.7 SEC INR Comment 1.0 0.8-1.4 Activated Partial Thromboplast Time 21 L 24-35 SEC My Orders Orders - KAYLA COLÓN MD Cbc With Automated Diff (11/16/19 13:48) Magnesium (11/16/19 13:48) Chest 1 View, Ap/Pa Only (11/16/19 13:48) Ekg Tracing (11/16/19 13:48) Comprehensive Metabolic Panel (11/16/19 13:48) Myoglobin Serum (11/16/19 13:48) Protime With Inr (11/16/19 13:48) Partial Thromboplastin Time (11/16/19 13:48) O2 (11/16/19 13:48) Monitor-Rhythm Ecg Trace Only (11/16/19 13:48) Lipid Panel (11/17/19 06:00) Ed Iv/Invasive Line Start (11/16/19 13:48) BNP (11/16/19 13:48) Troponin I (11/16/19 13:48) Aspirin Chewable Tablet (Baby Aspirin Ch (11/16/19 14:00) Procalcitonin (Pct) (11/16/19 13:48) Hs C Reactive Protein (11/16/19 13:48) Erythrocyte Sedimentation Rate (11/16/19 13:48) LDH (11/16/19 13:48) Furosemide Injection (Lasix Injection) (11/16/19 13:48) Furosemide Injection (Lasix Injection) (11/16/19 13:47) Aspirin Chewable Tablet (Baby Aspirin Ch (11/16/19 16:00) Enoxaparin Injection (Lovenox Injection) (11/16/19 16:00) Medications Given in ED Current Medications Medications Dose Ordered Sig/Nelly Route Start Time Stop Time Status Last Admin Dose Admin Aspirin 324 mg ONCE ONCE PO 11/16/19 14:00 11/16/19 14:01 DC 11/16/19 13:59 324 MG Vital Signs/I&O 11/16/19 11/16/19 13:23 13:25 Temp 36.8 Pulse 112 Resp 20 B/P (MAP) 156/110 (125) Pulse Ox 94 94 O2 Delivery Nasal Cannula Nasal Cannula O2 Flow Rate 2.00 2.00 Capillary Refill : NONE Blood Pressure Mean: 125 Progress Note : Progress Note Seen and evaluated. IV, labs, EKG and chest x-ray ordered. Lasix 40 mg IV ordered. Reviewed previous visits including yesterday which showed significant findings for heart failure. Monitor patient. 1540: I did discuss the case with Dr. Leach and she accepts patient for admission, inpatient status. I discussed the case with Dr. Enciso 1543. Aspirin 324 mg by mouth as well as Lovenox 1 mg/kg ordered. We will continue those. Patient agrees to admission. ECG Initial ECG Impression Date: Nov 16, 2019 Initial ECG Impression Time: 13:33 Initial ECG Rate: 108 Comment Sinus tachycardia with left bundle branch block. Left axis deviation. No evidence of ST elevation GA. Similar to previous done on 11/15/19. Interpreted by me. Diagnostic Imaging Diagonstic Imaging: Xray Comments NAME: CHERRIE CHUNG [employer] REC#: [id number] PT STATUS: REG ER : 1980 PHYSICIAN: KAYLA COLÓN MD ADMIT DATE: 11/16/19/ER Draft Date of Exam:11/16/19 CHEST 1 VIEW, AP/PA ONLY INDICATION: Shortness of air and vomiting. TIME OF EXAM: 3:13 PM Correlation is made with prior chest from one day earlier. Heart remains enlarged. The lungs appear to be fairly clear. Pulmonary vascularity is unremarkable. No infiltrate or failure is detected. There is no effusion or pneumothorax. IMPRESSION: Cardiomegaly. No other significant abnormality is detected. Dictated on workstation # [id number] Dict: 11/16/19 1527 Trans: 11/16/19 1530 [id number] [id number] Interpreted by: DEISI JO MD Electronically signed by: Reviewed: Reviewed by Me Departure Communication (Admissions) Time/Spoke to Admitting Phy: 15:40 Time/Spoke to Consulting Phy: 15:43 Impression Primary Impression: Acute on chronic heart failure Qualified Codes: I50.9 - Heart failure, unspecified Additional Impressions: NSTEMI (non-ST elevated myocardial infarction) Hypoxia Disposition: 09 ADMITTED INPATIENT Condition: Stable Admissions Decision to Admit Reason: Admit from ER (General) Decision to Admit/Date: Nov 16, 2019 Time/Decision to Admit Time: 15:40 Departure-Patient Inst. Referrals: NO,LOCAL PHYSICIAN (PCP/Family) Primary Care Physician KAYLA COLÓN MD Nov 16, 2019 14:57
--- NOTE | 2019-11-16 15:30 | Diagnostic Imaging Report ---
INDICATION: Shortness of air and vomiting. TIME OF EXAM: 3:13 PM Correlation is made with prior chest from one day earlier. Heart remains enlarged. The lungs appear to be fairly clear. Pulmonary vascularity is unremarkable. No infiltrate or failure is detected. There is no effusion or pneumothorax. IMPRESSION: Cardiomegaly. No other significant abnormality is detected. Dictated by: Dictated on workstation # [id number]
[2019-11-16] MEDS ORDERED: ENOXAPARIN 80 MG/0.8 ML (LOVENOX) SYR SC ONE (16:00)
--- NOTE | 2019-11-16 16:19 | History & Physical-Hospitalist ---
History of Present Illness HPI/Chief Complaint Pt is a 39yoAAM known to me from recent admission who presented to the the emergency room secondary to shortness of breath. He was seen in the emergency room yesterday for similar presentation was found to be in heart failure. admission was arranged here but patient insisted on driving himself and signed out AGAINST MEDICAL ADVICE from they are. He did not present here until today. he states his shortness of breath is improved since he received Lasix. He denies any chest pain. He does complain of some nausea after eating [employer]. He reports normal around once a week.ut he'll normally only eats a cheeseburger. Source: patient Date Seen 11/16/19 Time Seen by a Provider: 16:00 Attending Physician Silvana Calderón MD PCP No,Local Physician Referring Physician Date of Admission Nov 16, 2019 at 15:36 Home Medications & Allergies Home Medications Reviewed patient Home Medication Reconciliation performed by pharmacy medication reconciliations cardiac cath technician and/or nursing. Patients Allergies have been reviewed. Allergies Allergies Coded Allergies No Known Drug Allergies (Unverified10/05/19) Past Feuzvuq-Hkcrgj-Tdlzds Hx Past Med/Social Hx: Reviewed Nursing Past Med/Soc Hx Patient Social History Alcohol Use: Rarely Uses Recreational Drug Use: Yes Drug of Choice: THC, METH, COCAINE, "OTHERS" DENIES IV USE 2nd Hand Smoke Exposure: Yes Recent Foreign Travel: No Contact w/other who traveled: No Recent Hopitalizations: No Recent Infectious Disease Expo: No Immunizations Up To Date Tetanus Booster (TDap): Unknown Seasonal Allergies Seasonal Allergies: No Past Medical History Respiratory: Asthma Currently Using CPAP: No Currently Using BIPAP: No Cardiac: Heart Attack, Hypertension Sexually Transmitted Disease: Yes (Chlamydia) History of Blood Disorders: No Family History Reviewed Nursing Family Hx No Pertinent Family Hx Review of Systems Constitutional: No chills, No fever EENTM: no symptoms reported Respiratory: dyspnea on exertion, short of breath Cardiovascular: No chest pain, No Hx of Intervention, No palpitations Gastrointestinal: no symptoms reported Genitourinary: no symptoms reported Musculoskeletal: no symptoms reported Skin: no symptoms reported Psychiatric/Neurological: No Symptoms Reported Physical Exam Physical Exam Vital Signs Vital Signs - First Documented 11/16/19 11/17/19 13:23 09:22 Temp 36.8 Pulse 112 Resp 20 B/P (MAP) 156/110 (125) Pulse Ox 94 O2 Delivery Nasal Cannula O2 Flow Rate 2.00 FiO2 28 Capillary Refill : NONE Height, Weight, BMI Height: '" Weight: lbs. oz. kg; 27.00 BMI Method: General Appearance: No Apparent Distress, WD/WN HEENT: PERRL/EOMI, Moist Mucous Membranes, Scleral Icterus (L) Neck: Normal Inspection, Supple Respiratory: Lungs Clear, No Accessory Muscle Use, No Respiratory Distress Cardiovascular: No JVD, No Murmur, Tachycardia Gastrointestinal: Normal Bowel Sounds, Non Tender, Soft Neurologic/Psychiatric: Alert, Oriented x3, Normal Mood/Affect Results Results/Procedures Labs Laboratory Tests 11/16/19 13:39 11/17/19 04:35 Patient resulted labs reviewed. Imaging: Reviewed Imaging Report Imaging [facility] [place], [place] NAME: CHERRIE CHUNG [employer] REC#: [id number] PT STATUS: REG ER : 1980 PHYSICIAN: KAYLA COLÓN MD ADMIT DATE: 11/16/19/ER Draft Date of Exam:11/16/19 CHEST 1 VIEW, AP/PA ONLY INDICATION: Shortness of air and vomiting. TIME OF EXAM: 3:13 PM Correlation is made with prior chest from one day earlier. Heart remains enlarged. The lungs appear to be fairly clear. Pulmonary vascularity is unremarkable. No infiltrate or failure is detected. There is no effusion or pneumothorax. IMPRESSION: Cardiomegaly. No other significant abnormality is detected. Dictated on workstation # [id number] Dict: 11/16/19 1527 Trans: 11/16/19 1530 [facility] [id number] Interpreted by: DEISI JO MD Electronically signed by: Assessment/Plan Admission Diagnosis Acutely decompensated heart failure Admission Status: Inpatient Order (span 2 midnights) Reason for Inpatient Admission: see below Assessment and Plan Acutely decompensated heart failure NSTEMI Continue IV Lasix Monitor on telemetry Cardiology consulted, appreciate recs Echo Lovenox ASA Methamphetamine use Discussed detrimental effects on the heart Patient states he will quit Last use 2-3 days ago DVT ppx; Lovenox Diagnosis/Problems Diagnosis/Problems (1) Acute on chronic heart failure Status: Acute Qualifiers: Heart failure type: systolic Qualified Codes: I50.23 - Acute on chronic systolic (congestive) heart failure (2) NSTEMI (non-ST elevated myocardial infarction) Status: Acute (3) Hypoxia Status: Acute (4) Methamphetamine abuse Status: Acute (5) Transaminitis Status: Acute (6) Essential (primary) hypertension Status: Chronic SILVANA CALDERÓN MD Nov 16, 2019 16:19
[2019-11-16 16:50] VITALS: BP 156/110
--- NOTE | 2019-11-16 17:00 | NUR ---
JOZEF CHUNG admitted to room 409-1, with an admitting diagnosis of CHF HYPOXIA AND NONSTEMI MA, on 11/16/19 from ER via W/C, accompanied by STAFF.CHERRIE CHUNG introduced to surroundings, call light, bed controls, phone, TV, temperature control, lights, meal times, smoking policy, visitor policy, side rail policy, bathrooms and showers. Patient Rights given to patient in the handbook.CHERRIE CHUNG verbalizes understanding that [facility] is not responsible for the loss or damage to any personal effects or valuables that are kept in the patients posession during their hospitalization. The following Patient Care Plans were discussed with the PT: Discharge Planning, PAIN CONTROL,IV THERAPY, and TESTS AND PROCEDURES. CHERRIE CHUNG verbalizes understanding of Interdisciplinary Patient Education. Patient and/or family were informed about the Rapid Response Team and its purpose.
[2019-11-16 17:12] VITALS: BP 156/110
[2019-11-16] MEDS ORDERED: CATHETER FLUSH 10 ML SYR IV PRN (17:15)
[2019-11-16] MEDS ORDERED: RT-ALBUTEROL SULF 2.5 MG/3 ML PRE-MIX VIAL INH PRN (17:30)
[2019-11-16] MEDS: FUROSEMIDE 40 MG/4 ML INJ (LASIX) IV SCH (19:17)
[2019-11-16] MEDS: CATHETER FLUSH 10 ML SYR IV SCH (19:20)
[2019-11-16 19:30] VITALS: BP 147/92
[2019-11-16 23:31] VITALS: BP 142/80
[2019-11-17] MEDS: ENOXAPARIN 80 MG/0.8 ML (LOVENOX) SYR SC SCH ×2 (03:54→16:12)
[2019-11-17 04:00] VITALS: BP 162/89
[2019-11-17 05:17] LABS: BASOPHILS % (AUTO) 0 % (0-10); EOSINOPHILS # (AUTO) 0.3 10^3/uL (0.0-0.3); EOSINOPHILS % (AUTO) 3 % (0-10); HEMATOCRIT 41 % (40-54); HEMOGLOBIN 13.3 G/DL (13.3-17.7); LYMPHOCYTES # (AUTO) 1.5 X 10^3 (1.0-4.0); LYMPHOCYTES % (AUTO) 19 % (12-44); MEAN CORPUSCULAR HEMOGLOBIN 28 PG (25-34); MEAN CORPUSCULAR HGB CONC 33 G/DL (32-36); MEAN CORPUSCULAR VOLUME 86 FL (80-99); MEAN PLATELET VOLUME 10.3 FL (7.4-10.4); MONOCYTES # (AUTO) 0.5 X 10^3 (0.0-1.0); MONOCYTES % (AUTO) 7 % (0-12); NEUTROPHILS # (AUTO) 5.5 X 10^3 (1.8-7.8); NEUTROPHILS % (AUTO) 71 % (42-75); PLATELET COUNT 312 10^3/uL (130-400); WHITE BLOOD COUNT 7.8 10^3/uL (4.3-11.0)
[2019-11-17 05:48] LABS: ALANINE AMINOTRANSFERASE 344 U/L (0-55); ALBUMIN 3.3 GM/DL (3.2-4.5); ALKALINE PHOSPHATASE 120 U/L (40-136); BUN/CREATININE RATIO 13; CALCIUM 8.6 MG/DL (8.5-10.1); CARBON DIOXIDE 29 MMOL/L (21-32); CHLORIDE 100 MMOL/L (98-107); CHOLESTEROL 170 MG/DL (< 200); CREATININE SERUM 1.15 MG/DL (0.60-1.30); GFR ESTIMATED > 60; GLUCOSE 92 MG/DL (70-105); HDL CHOLESTEROL 35 MG/DL (40-60); POTASSIUM 3.6 MMOL/L (3.6-5.0); SODIUM 139 MMOL/L (135-145); TOTAL PROTEIN 6.3 GM/DL (6.4-8.2); TRIGLYCERIDES 85 MG/DL (<150); VLDL CHOLESTEROL 17 MG/DL (5-40)
[2019-11-17] MEDS: CATHETER FLUSH 10 ML SYR IV SCH ×3 (06:20→22:04)
[2019-11-17] MEDS: FUROSEMIDE 40 MG/4 ML INJ (LASIX) IV SCH ×2 (06:20→16:57)
[2019-11-17 08:00] VITALS: BP 156/105
[2019-11-17] MEDS: PANTOPRAZOLE 40 MG (PROTONIX) TAB PO SCH (08:07)
[2019-11-17] MEDS: ASPIRIN E.C. 81 MG (ECOTRIN) TAB PO SCH (08:07)
[2019-11-17] MEDS ORDERED: ASPIRIN 81 MG CHEW (CHILDREN'S ASA) PO SCH (09:00)
[2019-11-17 09:22] VITALS: BP 162/89
--- NOTE | 2019-11-17 09:46 | NUR ---
B/P MANUALLY WAS 156/105 -- DR CALDERÓN WAS ADVISED
--- NOTE | 2019-11-17 10:29 | NUR ---
CM/SS visited with patient for discharge planning. Patient was lying in bed with the covers over his head. CM/SS asked patient if he would be willing to talk. He verbalized that he was. The patient did not converse with this sw. He would only mumble yes or no and/or grunt for answers. CM/SS attempted to talk with patient about his substance use and if he was interested in addition treatment services. He was unwilling to discuss. CM/SS informed him that this sw was leaving education and information of services on side table. CM/SS will continue to follow.
--- NOTE | 2019-11-17 11:45 | Consultation-Cardiology ---
HPI-Cardiology Cardiology Consultation Date of Consultation 11/17/19 Date of Admission Time Seen by Provider: 08:00 Indication: shortness of breath HPI 39 years old gentleman with history of congestive heart failure, noncompliant, history of methamphetamine use, was hospitalized recently and signed out AGAINST MEDICAL ADVICE. Has been having increasing dyspnea on exertion which was worsening, fatigue, denied any chest pain. No syncope or near syncopal episodes no pedal edema. Came into the emergency room and he was admitted. Responded to diuretics, feeling better on my evaluation, still sleepy and tired. Barely answering his questions. Echocardiogram showed severe cardiomyopathy with ejection fraction 10-15 percent Home Medications & Allergies Allergies: Coded Allergies: No Known Drug Allergies (Unverified , 10/05/19) Home Medication List Reviewed: Yes ITH-Fuggaj-Bzzdeu Hx Patient Social History Marital Status: Alcohol Use: Occasionally Uses Recreational Drug Use: Yes (METH 4 days ago, RASTA) Drug of Choice: THC, METH, COCAINE, "OTHERS" DENIES IV USE Smoking Status: Never a Smoker 2nd Hand Smoke Exposure: Yes Recent Foreign Travel: No Recent Infectious Disease Expo: No Recent Hopitalizations: No Physical Abuse Screen: No Sexual Abuse: No Immunizations Up To Date Tetanus Booster (TDap): Unknown Date of Pneumonia Vaccine: Dec 07, 2018 Family Medical History Significant Family History: No Pertinent Family Hx Family History: Asthma AUNT Hypertension MOTHER Review of Systems-General Review of Systems Constitutional: No chills, No fever EENTM: no symptoms reported Respiratory: dyspnea on exertion, short of breath Cardiovascular: No chest pain, No Hx of Intervention, No palpitations Gastrointestinal: no symptoms reported Genitourinary: no symptoms reported Musculoskeletal: no symptoms reported Skin: no symptoms reported Psychiatric/Neurological: No Symptoms Reported All Other Systems Reviewed Negative Unless Noted: Yes Physical Exam Physical Exam Vital Signs Vital Signs - First Documented 11/16/19 11/17/19 13:23 09:22 Temp 36.8 Pulse 112 Resp 20 B/P (MAP) 156/110 (125) Pulse Ox 94 O2 Delivery Nasal Cannula O2 Flow Rate 2.00 FiO2 28 Capillary Refill : Less Than 3 Seconds Height, Weight, BMI Height: '" Weight: lbs. oz. kg; 27.11 BMI Method: General Appearance: No Apparent Distress, WD/WN HEENT: PERRL/EOMI, Moist Mucous Membranes, Scleral Icterus (L) Neck: Normal Inspection, Supple Respiratory: Lungs Clear, No Accessory Muscle Use, No Respiratory Distress Cardiovascular: No JVD, No Murmur, Tachycardia Gastrointestinal: Normal Bowel Sounds, Non Tender, Soft Neurologic/Psychiatric: Alert, Oriented x3, Normal Mood/Affect A/P-Cardiology Admission Diagnosis Congestive heart failure, acute left ventricular systolic dysfunction Shortness of breath Illicit drug use Noncompliant Assessment/Plan Congestive heart failure, acute left ventricular systolic dysfunction with ejection fraction 10 percent, unknown etiology, planning to evaluate cardiac catheterization, started on diuretics. I will evaluate tick borne pattern. Start low-dose beta blockers and Entresto Shortness of breath, responded to diuretics. Continue to monitor History of illicit drug use. Educated on avoiding drugs. Noncompliance Clinical Quality Measures DVT/VTE Risk/Contraindication: Risk Factor Score Per Nursin RFS Level Per Nursing on Admit: 4+=Very High FLORA MAGDALENO MD Nov 17, 2019 11:45
[2019-11-17 12:00] VITALS: BP 180/100
--- NOTE | 2019-11-17 14:00 | Progress Note - Hospitalist ---
Subjective HPI/CC On Admission Date Seen by Provider: Nov 17, 2019 Time Seen by Provider: 13:55 Pt is a 39yoAAM known to me from recent admission who presented to the the emergency room secondary to shortness of breath. He was seen in the emergency room yesterday for similar presentation was found to be in heart failure. admission was arranged here but patient insisted on driving himself and signed out AGAINST MEDICAL ADVICE from they are. He did not present here until today. he states his shortness of breath is improved since he received Lasix. He denies any chest pain. He does complain of some nausea after eating [employer]. He reports normal around once a week.ut he'll normally only eats a cheeseburger. Subjective/Events-last exam Pt reports feeling better today. SOB improved. Napping when I entered room. Objective Exam Vital Signs Vital Signs Date Time Temp Pulse Resp B/P (MAP) Pulse Ox O2 Delivery O2 Flow Rate FiO2 11/17/19 12:00 36.5 95 20 180/100 (126) 96 Nasal Cannula 2.00 11/17/19 09:22 28 Capillary Refill : Less Than 3 Seconds General Appearance: No Apparent Distress, WD/WN Respiratory: Lungs Clear, No Respiratory Distress Cardiovascular: Regular Rate, Rhythm, No Murmur Neurologic/Psychiatric: Alert, Oriented x3 Results/Procedures Lab Laboratory Tests 11/17/19 04:35 Patient resulted labs reviewed. Imaging: Reviewed Imaging Report Assessment/Plan Assessment and Plan Assess & Plan/Chief Complaint Acutely decompensated heart failure NSTEMI Continue Lasix Monitor on telemetry Cardiology consulted, appreciate recs Echo reveals EF of 10-15% Plan for cath tomorrow Lovenox ASA, Coreg, losartan Methamphetamine use Discussed detrimental effects on the heart Patient states he will quit Last use 2-3 days ago DVT ppx; Lovenox Diagnosis/Problems Diagnosis/Problems (1) Acute on chronic heart failure Status: Acute Qualifiers: Heart failure type: systolic Qualified Codes: I50.23 - Acute on chronic systolic (congestive) heart failure (2) NSTEMI (non-ST elevated myocardial infarction) Status: Acute (3) Hypoxia Status: Acute (4) Methamphetamine abuse Status: Acute (5) Transaminitis Status: Acute (6) Essential (primary) hypertension Status: Chronic Clinical Quality Measures DVT/VTE Risk/Contraindication: Risk Factor Score Per Nursin RFS Level Per Nursing on Admit: 4+=Very High SILVANA CALDERÓN MD Nov 17, 2019 14:00
--- NOTE | 2019-11-17 15:08 | NUR ---
SPOKE WITH THE PT TO COMPLETE THE MED REC PT DENIES TAKING ANY PRESCRIPTION OR OTC MEDS
--- NOTE | 2019-11-17 15:18 | Diagnostic Imaging Report ---
INDICATION: CHF and hypoxia. COMPARISON: None available. FINDINGS: Bilateral brachial arteries were utilized. The bilateral posterior tibial and dorsalis pedis arteries were also utilized. The waveforms within the right ankle are monophasic and blunted. Left ankle waveforms have a more triphasic appearance. IMPRESSION: 1. Right CANDE - 1.06. 2. Left CANDE - 1.13. Dictated by: Dictated on workstation # [id number]
[2019-11-17] MEDS: LOSARTAN 25 MG (COZAAR) TAB PO SCH (15:39)
[2019-11-17] MEDS: CARVEDILOL 3.125 MG (COREG) TABLET PO SCH (19:37)
[2019-11-17 20:28] VITALS: BP 153/96
[2019-11-17 23:45] VITALS: BP 118/77
[2019-11-18] VITALS (17 sets, daily range): BP systolic 120–149; BP diastolic 75–108
--- NOTE | 2019-11-18 05:00 | NUR ---
Messaged Dr. Enciso at 0500 regarding the patients scheduled Lovenox at 0400 and did not get a response. Called Dr. Enciso at 0530 regarding the 0400 Lovenox and whether or not it should be given since the patientis supposed to be getting a heart cath. this AM. Dr. Enciso requested to hold the Lovenox.
[2019-11-18] MEDS: ENOXAPARIN 80 MG/0.8 ML (LOVENOX) SYR SC SCH ×2 (05:34→17:12)
[2019-11-18] MEDS: CATHETER FLUSH 10 ML SYR IV SCH ×3 (06:08→22:13)
[2019-11-18] MEDS: PANTOPRAZOLE 40 MG (PROTONIX) TAB PO SCH (06:53)
[2019-11-18] MEDS: FUROSEMIDE 40 MG/4 ML INJ (LASIX) IV SCH ×2 (06:53→17:12)
[2019-11-18] MEDS ORDERED: NS IV 1000 ML 1,000 ML ONE (08:10)
[2019-11-18] MEDS ORDERED: HEParin (CATH LAB) 2,000 ML IV ONE (08:10)
[2019-11-18] MEDS ORDERED: LIDOCAINE 1% INJ 20 ML 20 ML VIAL ONE (08:10)
[2019-11-18] MEDS ORDERED: MIDAZOLAM 5 MG/5 ML (VERSED) VIAL ONE (08:11)
[2019-11-18] MEDS ORDERED: fentaNYL INJECTION 100 MCG/2 ML AMP ONE (08:11)
--- NOTE | 2019-11-18 08:34 | Cardiac Procedure Note-CS/ASA ---
Pre-Procedure Note Pre-Op Procedure Note H&P Reviewed The H&P was reviewed, patient examined and no changes noted. Date H&P Reviewed: Nov 18, 2019 Time H&P Reviewed: 08:33 Conscious Sedation Pre-Proced Time 08:33 ASA Score 3 For ASA 3 and 4: Consider anesthesia and medical clearance. Also, for patients with a history of failed moderate sedation consider anesthesia. Airway Lungs Heart ASA score ASA 1: a normal healthy patient ASA 2: a patient with a mild systemic disease (mid diabetes, controlled hypertension, obesity x ASA 3: a patient with a severe systemic disease that limits activity (angina, COPD, prior Myocardial infarction) ASA 4: a patient with an incapacitating disease that is a constant threat to life (CHF, renal failure) ASA 5: a moribund patient not expected to survive 24 hrs. (ruptured aneurysm) ASA 6: a declared brain- patient whose organs are being harvested. For emergent operations, add the letter E after the classification Mallampati Classification Grade 3 Sedation Plan Analgesia, Amnesia, Plan communicated to team members, Discussed options with patient/fam, Discussed risks with patient/fam The patient is an appropriate candidate to undergo the planned procedure, sedation, and anesthesia. The patient immediately re-assessed prior to indication. FLORA MAGDALENO MD Nov 18, 2019 08:33
[2019-11-18] MEDS ORDERED: NITRO DRIP 25000 MCG/D5W 250 ML IV ONE (08:42)
[2019-11-18] MEDS ORDERED: HEParin 1000 UNIT/ML (10ML VIAL) FOR BOLUS ONE (08:42)
[2019-11-18] MEDS ORDERED: VERAPAMIL 5 MG/2 ML (CALAN) VIAL IV ONE (08:42)
--- NOTE | 2019-11-18 08:42 | NUR ---
TO HEART CATH PER BED, VERBALIZED UNDERSTANDING
--- NOTE | 2019-11-18 09:13 | Cardiac Cath Report ---
Cardiac Cath Report Physician (s)/Policy Cancellation Clerk (s) Physician FLORA MAGDALENO MD Pre-Procedure Diagnosis Pre-Procedure Diagnosis: dilated cardiomyopathy Post-Procedure Note Procedure Start Date: Nov 18, 2019 Name of Procedure: Left heart catheterization Aortic arch angiogram Findings/Procedure Note PROCEDURE NOTE: 39 years old gentleman admitted with dilated cardiomyopathy, severe left ventricular systolic dysfunction with ejection fraction 10 percent, scheduled for cardiac catheterization possible PTCA. After explaining the procedure to the patient, all pros and cons were explained, all questions were answered. The patient signed the consent and then he was placed on the cardiac catheterization laboratory. Groin was prepped SL fashion local anesthesia was used. Sheath placed in the right radial artery, Berwick catheter advanced to the left ventricular cavity, pressure was measured pullback LV to aorta was done then intubated the left coronary system and angiogram was done then it was turned to the right coronary system and angiogram was done and I pulled to the aortic arch and a evaluate aortic arch angiogram. At the end of the procedure the sheath was removed. Vascular band was used FINDINGS: Hemodynamics LV 95/8, end-diastolic pressure of 8 Aorta 91/74 mean of 82 ANATOMY: Left Main is free of obstructive disease Left Anterior Descending is free of obstructive disease Left Circumflex is dominant and free of obstructive disease Right Coronory Artery is moderate in size and free of obstructive disease LV Gram was not done, pressure was measured Aorta evaluation done with aortic arch angiogram, no dissection or aneurysm, n ormal brachiocephalic artery, left subclavian and left carotid arteries CONCLUSION: 1. Severe nonischemic cardiomyopathy, left ventricular end-diastolic pressure has returned to normal 2. Normal coronary system with no significant obstructive disease 3. Normal aortic arch and great vessels of the neck DISCUSSION AND RECOMMENDATION: Maximizing medical therapy, LifeVest and follow-up as an outpatient Anesthesia Type: Conscious Sedation Estimated blood loss (mL): 5 ml Contrast Amount: 60 ml Total Radiation Dose: 271 mGy Post-Procedure Diagnosis (1) Acute on chronic heart failure Qualifiers: Qualified Codes: I50.23 - Acute on chronic systolic (congestive) heart failure (2) NSTEMI (non-ST elevated myocardial infarction) (3) Hypoxia (4) Methamphetamine abuse (5) Transaminitis (6) Essential (primary) hypertension FLORA MAGDALENO MD Nov 18, 2019 09:13
--- NOTE | 2019-11-18 09:15 | Cardiology Progress Note ---
Subjective Date Seen by Provider: Nov 18, 2019 Time Seen by Provider: 09:13 Subjective/Events-last exam Patient is feeling well, still sleepy. Breathing better Review of Systems General: No Chills, No Night Sweats; Fatigue, Malaise; No Appetite, No Other HEENT: No Head Aches, No Visual Changes, No Eye Pain, No Ear Pain, No Dysphasia, No Sinus Congestion, No Post Nasal Drip, No Sore Throat, No Other Pulmonary: No Dyspnea, No Cough, No Pleuritic Chest Pain, No Other Cardiovascular: No: Chest Pain, Palpitations, Orthopnea, Paroxysmal Noc. Dyspnea, Edema, Lt Headedness, Other Objective-Cardiology Exam Last Set of Vital Signs Vital Signs 11/17/19 11/18/19 11/18/19 11/18/19 09:22 04:00 07:00 08:00 Temp 36.4 Pulse 83 Resp 12 B/P (MAP) 125/75 (92) Pulse Ox 96 O2 Delivery Room Air O2 Flow Rate 2.00 FiO2 28 Capillary Refill : NONE I&O Intake and Output 11/18/19 00:00 Intake Total 3565 ml Output Total 485 ml Balance 3080 ml Intake Oral 3565 ml Output Urine Total 485 ml # Voids 10 # Bowel Movements 2 General: Alert, Oriented X3, Cooperative HEENT: Atraumatic, PERRLA Neck: Supple, No JVD, No Thyromegaly Lungs: Clear to Auscultation, Normal Air Movement Heart: Regular Rate, Normal S1, Normal S2, No Murmurs Abdomen: Normal Bowel Sounds, Soft, No Tenderness, No Hepatosplenomegaly, No Masses Extremities: No Clubbing, No Cyanosis, No Edema, Normal Pulses, No Tenderness/Swelling Skin: No Rashes, No Breakdown, No Significant Lesion Neuro: Normal Gait, Normal Speech, Strength at 5/5 X4 Ext, Normal Tone, Sensation Intact Psych/Mental Status: Mental Status NL, Mood NL A/P-Cardiology Admission Diagnosis Congestive heart failure, acute left ventricular systolic dysfunction Shortness of breath Illicit drug use Noncompliant Assessment/Plan Congestive heart failure, acute left ventricular systolic dysfunction with ejection fraction 10 percent, unknown etiology, nonischemic cardiomyopathy, continue on Coreg and losartan, add oral Lasix and potassium Patient will be fitted for LifeVest for primary prevention Cardiac catheterization showed normal coronary with no significant obstructive disease, normal aortic arch and great vessels of the neck Tic borne tighter is still pending Shortness of breath, responded to diuretics. Continue to monitor History of illicit drug use. Educated on avoiding drugs. Noncompliance Discussed with gerri Fajardo for discharge, need close monitoring as an outpatient Clinical Quality Measures DVT/VTE Risk/Contraindication: Risk Factor Score Per Nursin RFS Level Per Nursing on Admit: 4+=Very High FLORA MAGDALENO MD Nov 18, 2019 09:15
--- NOTE | 2019-11-18 09:55 | NUR ---
ORDER AND INFORMATION FAXED TO [facility], a Division of [employer] [facility], THIS NURSE CALLED [facility] TO MAKE SURE THEY RECEIVED THE ORDER.
[2019-11-18] MEDS: ASPIRIN E.C. 81 MG (ECOTRIN) TAB PO SCH (10:24)
[2019-11-18] MEDS: LOSARTAN 25 MG (COZAAR) TAB PO SCH (10:24)
[2019-11-18] MEDS: NS IV 1000 ML 1,000 ML IV SCH ×2 (10:24→16:44)
[2019-11-18] MEDS: CARVEDILOL 3.125 MG (COREG) TABLET PO SCH ×2 (10:24→20:13)
--- NOTE | 2019-11-18 10:46 | Discharge Summary ---
Diagnosis/Chief Complaint Date of Admission Nov 16, 2019 at 15:36 Date of Discharge Admission Diagnosis Acutely decompensated heart failure Primary Care No,Local Physician Discharge Diagnosis (1) Acute on chronic heart failure Status: Acute (2) NSTEMI (non-ST elevated myocardial infarction) Status: Acute (3) Hypoxia Status: Acute (4) Methamphetamine abuse Status: Acute (5) Transaminitis Status: Acute (6) Essential (primary) hypertension Status: Chronic Discharge Summary Procedures/Consulations Dr Enciso- Cardiology Discharge Physical Exam Allergies: Coded Allergies: No Known Drug Allergies (Unverified , 10/05/19) Vitals & I&Os Vital Signs Date Time Temp Pulse Resp B/P (MAP) Pulse Ox O2 Delivery O2 Flow Rate FiO2 11/19/19 08:00 35.4 100 20 145/94 (111) 99 Room Air 11/18/19 08:00 2.00 11/17/19 09:22 28 General Appearance: No Apparent Distress, WD/WN, Thin Cardiovascular: Regular Rate, Rhythm, No Murmur Gastrointestinal: Normal Bowel Sounds, Non Tender, Soft Neurologic/Psychiatric: Alert, Oriented x3 Hospital Course Pt was admitted due to acutely decompensated systolic heart failure. He underwent cardiac catheter which was normal. He was started on heart failure medicines of Coreg, iron, Lasix with potassium replacement. [facility] information was faxed and arranged for patient who will follow up with him on Thursday. He was deemed safe for discharge without this by cardiology. He was discharged home in stable condition to follow up this hospital stay with his primary care doctor. He was advised to quit using meth completely. Labs (last 24 hrs) Microbiology 11/17/19 MRSA Screen - Final, Complete MRSA not isolated Patient resulted labs reviewed. Imaging: Reviewed Imaging Report Discussion & Recommendations Discharge Planning: >30 minutes discharge planning Discharge Home Medications: Active Scripts Active Furosemide 20 Mg Tablet 20 Mg PO DAILY Klor-Con 10 (Potassium Chloride) 10 Meq Tablet.er 10 Meq PO DAILY@0700 Aspirin EC (Aspirin) 81 Mg Tablet. 81 Mg PO DAILY Losartan Potassium 25 Mg Tablet 25 Mg PO DAILY Carvedilol 3.125 Mg Tablet 3.125 Mg PO BID Instructions to patient/family Please see electronic discharge instructions given to patient. Clinical Quality Measures DVT/VTE Risk/Contraindication: Risk Factor Score Per Nursin RFS Level Per Nursing on Admit: 4+=Very High Problem Qualifiers (1) Acute on chronic heart failure: Heart failure type: systolic Qualified Codes: I50.23 - Acute on chronic systolic (congestive) heart failure SILVANA CALDERÓN MD Nov 18, 2019 10:46
[2019-11-18] MEDS ORDERED: FURO20TA4 PO (10:47)
[2019-11-18] MEDS ORDERED: POTA10TA6 PO (10:47)
[2019-11-18] MEDS ORDERED: CARV3.122 PO (10:47)
[2019-11-18] MEDS ORDERED: LOSA25TA41 PO (10:47)
[2019-11-18] MEDS ORDERED: ASPI-1238 PO (10:47)
--- NOTE | 2019-11-18 10:49 | Discharge Inst-Simple/Standard ---
Discharge Inst-Standard Discharge Medications New, Converted or Re-Newed RX: Transmitted to Pharmacy Patient Instructions/Follow Up Plan of Care/Instructions/FU: continue taking her medications as written. Please follow up with Dr. Enciso to follow up this hospital stay. Please establish care with a primary care physician to help manage her chronic disease. Please quit using meth. Activity as Tolerated: Yes Discharge Diet: Low Sodium Diet Return to The Hospital For: Chest pain, shortness of breath, swelling in yourlegs, difficulty breathing, fever, if you feel you're getting worse. SILVANA CALDERÓN MD Nov 18, 2019 10:49
--- NOTE | 2019-11-18 11:26 | NUR ---
CM/SS follow up. The patient was lying in bed but more alert today. He still answered questions with short responses. SAMMY/SS attempted to discuss resources for addiction treatment services. He reports that he does not need these services because "He has never been treated a day in his life". CM/SS attempted to explain services. He states that he is not planning to use again due to the damage it has caused to his heart. CM/SS contacted Jordan with [facility] to inform him of referral. CM/SS visited with the patient's nurse and physician to discuss the process of getting life vest without insurance. They verbalized understanding. CM/SS will continue to follow for discharge planning. Addendum: 11/18/19 at 1530 by CARTER SAMS SAMMY/SS spoke with Jordan from [facility]. He faxed over the application from the agency to assist with the life vest. SAMMY/SS provided nurse and physician with a copy of application. The rest will be between the patient and company to set up.
--- NOTE | 2019-11-18 18:42 | NUR ---
THIS NURSE TALKED WITH MABEL LUIS TO SCHEDULE CARDIAC REHAB, SHE WILL CALL PATIENT AND MAKE APPOINTMENT WITH HIM
[2019-11-19 00:02] VITALS: BP 137/94
[2019-11-19 04:00] VITALS: BP 120/75
[2019-11-19] MEDS: ENOXAPARIN 80 MG/0.8 ML (LOVENOX) SYR SC SCH (04:05)
[2019-11-19] MEDS: CATHETER FLUSH 10 ML SYR IV SCH ×2 (05:36→14:00)
[2019-11-19] MEDS: FUROSEMIDE 40 MG/4 ML INJ (LASIX) IV SCH (06:26)
[2019-11-19] MEDS: PANTOPRAZOLE 40 MG (PROTONIX) TAB PO SCH (06:27)
[2019-11-19] MEDS ORDERED: KCL 10 MEQ TAB (MICRO K) PO SCH (07:00)
[2019-11-19 08:00] VITALS: BP 145/94
[2019-11-19] MEDS: ASPIRIN E.C. 81 MG (ECOTRIN) TAB PO SCH (08:00)
[2019-11-19] MEDS: LOSARTAN 25 MG (COZAAR) TAB PO SCH (08:00)
[2019-11-19] MEDS: CARVEDILOL 3.125 MG (COREG) TABLET PO SCH (08:00)
[2019-11-19] MEDS ORDERED: FUROSEMIDE 20 MG (LASIX) TAB PO SCH (09:00)
--- NOTE | 2019-11-19 11:46 | Cardiology Progress Note ---
Subjective Date Seen by Provider: Nov 19, 2019 Time Seen by Provider: 11:45 Subjective/Events-last exam Patient is laying down in bed. No chest pain or shortness of breath. No new complaint Review of Systems General: No Chills, No Night Sweats, No Fatigue, No Malaise, No Appetite, No Other HEENT: No Head Aches, No Visual Changes, No Eye Pain, No Ear Pain, No Dysphasia, No Sinus Congestion, No Post Nasal Drip, No Sore Throat, No Other Pulmonary: No Dyspnea, No Cough, No Pleuritic Chest Pain, No Other Cardiovascular: No: Chest Pain, Palpitations, Orthopnea, Paroxysmal Noc. Dyspnea, Edema, Lt Headedness, Other Objective-Cardiology Exam Last Set of Vital Signs Vital Signs 11/17/19 11/18/19 09:22 08:00 O2 Flow Rate 2.00 FiO2 28 Capillary Refill : Less Than 3 Seconds I&O Intake and Output 11/19/19 00:00 Intake Total 2890 ml Output Total 2500 ml Balance 390 ml Intake Oral 2590 ml IV Total 300 ml Output Urine Total 2500 ml # Voids 1 General: Alert, Oriented X3, Cooperative HEENT: Atraumatic, PERRLA Neck: Supple, No JVD, No Thyromegaly Lungs: Clear to Auscultation, Normal Air Movement Heart: Regular Rate, Normal S1, Normal S2, No Murmurs Abdomen: Normal Bowel Sounds, Soft, No Tenderness, No Hepatosplenomegaly, No Masses Extremities: No Clubbing, No Cyanosis, No Edema, Normal Pulses, No Tenderness/Swelling Skin: No Rashes, No Breakdown, No Significant Lesion Neuro: Normal Gait, Normal Speech, Strength at 5/5 X4 Ext, Normal Tone, Sensation Intact Psych/Mental Status: Mental Status NL, Mood NL A/P-Cardiology Admission Diagnosis Congestive heart failure, acute left ventricular systolic dysfunction Shortness of breath Illicit drug use Noncompliant Assessment/Plan Congestive heart failure, acute left ventricular systolic dysfunction with ejection fraction 10 percent, unknown etiology, nonischemic cardiomyopathy, continue on Coreg and losartan, Lasix and potassium replacement Patient will be fitted for LifeVest for primary prevention Cardiac catheterization showed normal coronary with no significant obstructive disease, normal aortic arch and great vessels of the neck Tic borne tighter is still pending Shortness of breath, responded to diuretics. Continue to monitor History of illicit drug use. Educated on avoiding drugs. Noncompliance Discussed with gerri Fajardo for discharge, need close monitoring as an outpatient, arrange for follow-up in one to 2 weeks Clinical Quality Measures DVT/VTE Risk/Contraindication: Risk Factor Score Per Nursin RFS Level Per Nursing on Admit: 4+=Very High FLORA MAGDALENO MD Nov 19, 2019 11:46
--- NOTE | 2019-11-19 11:51 | Progress Note - Hospitalist ---
Subjective HPI/CC On Admission Date Seen by Provider: Nov 19, 2019 Time Seen by Provider: 11:50 Pt is a 39yoAAM known to me from recent admission who presented to the the emergency room secondary to shortness of breath. He was seen in the emergency room yesterday for similar presentation was found to be in heart failure. admission was arranged here but patient insisted on driving himself and signed out AGAINST MEDICAL ADVICE from they are. He did not present here until today. he states his shortness of breath is improved since he received Lasix. He denies any chest pain. He does complain of some nausea after eating [employer]. He reports normal around once a week.ut he'll normally only eats a cheeseburger. Objective Exam Vital Signs Vital Signs Date Time Temp Pulse Resp B/P (MAP) Pulse Ox O2 Delivery O2 Flow Rate FiO2 11/19/19 08:00 35.4 100 20 145/94 (111) 99 Room Air 11/18/19 08:00 2.00 11/17/19 09:22 28 Capillary Refill : Less Than 3 Seconds General Appearance: No Apparent Distress, WD/WN Respiratory: Lungs Clear, No Respiratory Distress Cardiovascular: Regular Rate, Rhythm, No Murmur Gastrointestinal: Normal Bowel Sounds, Non Tender, Soft Neurologic/Psychiatric: Alert, Oriented x3 Results/Procedures Lab Patient resulted labs reviewed. Imaging: Reviewed Imaging Report Assessment/Plan Assessment and Plan Assess & Plan/Chief Complaint Acutely decompensated heart failure NSTEMI Continue IV Lasix Monitor on telemetry Cardiology consulted, appreciate recs Echo reveals EF of 10-15%- LiveVest information sent Lovenox ASA Started on coreg, losartan, lasix, and potassium Methamphetamine use Discussed detrimental effects on the heart Patient states he will quit Last use 2-3 days ago DVT ppx; Lovenox Diagnosis/Problems Diagnosis/Problems (1) Acute on chronic heart failure Status: Acute Qualifiers: Heart failure type: systolic Qualified Codes: I50.23 - Acute on chronic systolic (congestive) heart failure (2) NSTEMI (non-ST elevated myocardial infarction) Status: Acute (3) Hypoxia Status: Acute (4) Methamphetamine abuse Status: Acute (5) Transaminitis Status: Acute (6) Essential (primary) hypertension Status: Chronic Clinical Quality Measures DVT/VTE Risk/Contraindication: Risk Factor Score Per Nursin RFS Level Per Nursing on Admit: 4+=Very High SILVANA CALDERÓN MD Nov 19, 2019 11:51
[2019-11-20] MEDS ORDERED: ENOXAPARIN 40 MG/0.4 ML (LOVENOX) SYR SQ SCH (04:00)
== END 2019-11-19 15:33 | disposition home or self-care (01) | DRG 282 ==
LOC: EDUNIT# 13:21 → ER 13:25 → 4TH 15:36
PROVIDERS: ADMIT Family Medicine; ATTEND Family Medicine
PROC: 4A023N7 Measurement of Cardiac Sampling and Pressure, Left Heart, Percutaneous Approach (ICD-10-PCS; principal; 2019-11-18)
PROC: B2111ZZ Fluoroscopy of Multiple Coronary Arteries using Low Osmolar Contrast (ICD-10-PCS; 2019-11-18)
PROC: B2151ZZ Fluoroscopy of Left Heart using Low Osmolar Contrast (ICD-10-PCS; 2019-11-18)
DX: I11.0 Hypertensive heart disease with heart failure (principal); I21.4 Non-ST elevation (NSTEMI) myocardial infarction; I50.23 Acute on chronic systolic (congestive) heart failure; R09.02 Hypoxemia; I42.0 Dilated cardiomyopathy; F15.90 Other stimulant use, unspecified, uncomplicated; J45.909 Unspecified asthma, uncomplicated; R74.0 Nonspecific elevation of levels of transaminase and lactic acid dehydrogenase [LDH]; Z91.19 Patient's noncompliance with other medical treatment and regimen
CPT/HCPCS: 36221; 36415; 71045; 80053; 80061; 83615; 83735; 83874; 83880; 84145; 84484; 85025; 85610; 85652; 85730; 86141; 86618; 86666; 86668; 86757; 87081; 93005; 93041; 93306; 93458; 93922

== ENCOUNTER 2019-11-25 14:14 | Emergency (ER) | payer SELFPAY ==
[~2019-11-25] VITALS: Ht 172 cm; Wt 76.5 kg
[~2019-11-25 14:14] MED LIST changes: +ASPI-1238 PO; +CARV3.122 PO; +FURO20TA4 PO; +LOSA25TA41 PO; +POTA10TA6 PO
[2019-11-25] MEDS ORDERED: LACTATED RINGERS 1,000 ML IV ONE (14:53)
[2019-11-25] MEDS ORDERED: ONDANSETRON 4 MG/2 ML (SDV) Z0FRAN IVP ONE (15:00)
[2019-11-25] MEDS ORDERED: PANTOPRAZOLE 40 MG (PROTONIX) VIAL IV ONE (15:00)
[2019-11-25 15:29] LABS: BASOPHILS % (AUTO) 0 % (0-10); EOSINOPHILS % (AUTO) 0 % (0-10); HEMATOCRIT 39 % (40-54); HEMOGLOBIN 12.6 G/DL (13.3-17.7); LYMPHOCYTES # (AUTO) 0.8 X 10^3 (1.0-4.0); LYMPHOCYTES % (AUTO) 11 % (12-44); MEAN CORPUSCULAR HEMOGLOBIN 28 PG (25-34); MEAN CORPUSCULAR HGB CONC 33 G/DL (32-36); MEAN CORPUSCULAR VOLUME 87 FL (80-99); MEAN PLATELET VOLUME 10.5 FL (7.4-10.4); MONOCYTES # (AUTO) 0.6 X 10^3 (0.0-1.0); MONOCYTES % (AUTO) 8 % (0-12); NEUTROPHILS # (AUTO) 6.5 X 10^3 (1.8-7.8); NEUTROPHILS % (AUTO) 81 % (42-75); PLATELET COUNT 249 10^3/uL (130-400)
--- NOTE | 2019-11-25 15:32 | ED GI ---
General Chief Complaint: Abdominal/GI Problems Stated Complaint: NAUSEA Nursing Triage Note: Pt c/o nausea and inability to keep medications down. Pt states he was recently admitted for an SC/heart failure and was put on several new medications. Pt reports nausea starting before last admission but was resolved during hospital stay. Sepsis Screen: No Definite Risk Source of Information: Patient, Old Records History of Present Illness Date Seen by Provider: Nov 25, 2019 Time Seen by Provider: 14:45 Initial Comments PT ARRIVES VIA POV --STATES HE WAS IN [place], AND GOT SOMEONE TO GIVE HIM A RIDE HERE PT STATES "I CAN'T KEEP NO FOOD DOWN" --REPEATS THIS A MULTITUDE OF TIMES REPEATS "I CAN'T KEEP GRAPES DOWN", STATES "I COULD KEEP THEM DOWN WHEN I WAS HERE--"IS THE ACID SPRAY IN THE GRAPES--YOU HAVE A DIFFERENT KIND" STATES HE ATE CEREAL THIS MORNING ALONG WITH THE GRAPES--REPEATS HE KEPT THE CEREAL DOWN BUT NOT THE GRAPES STATES HE VOMITED 4 TIMES IN A ROW THIS MORNING NO DIARRHEA NO ABDOMINAL PAIN NO FEVER/SWEATS/CHILLS NO CHEST PAIN OR SHORTNESS OF BREATH NO COUGH PT WAS JUST ADMITTED TO THE HOSPITAL 11/15-11/19/19 FOR CHF, NSTEMI ,AND HAS BEEN PRESCRIBED NEW MEDICATIONS--GIVES CONVOLUTED STORY ABOUT MEDICATIONS, LOST HIS INHALER, ETC. IS UNCLEAR IF HE HAS BEEN TAKING ANY MEDICATIONS SINCE HE WAS DISMISSED. HAD CARDIAC CATH ,BUT NO INTERVENTION PT WAS GIVEN INFORMATION ON LIFEVEST, BUT HAS NOT OBTAINED ONE PT REPEATS THAT HE HAS NOT DONE METH SINCE HE WAS DISMISSED FROM THE HOSPITAL DOES STATE HE HAS USED [facility] TODAY PT HAS HAD 6 VISITS SINCE HIS FIRST VISIT HERE 10/05/19--MOST FOR PULMONARY- CARDIAC RELATED ISSUES/CHF, AND PT HAS LEFT AMA MULTIPLE TIMES--SEE OLD CHARTS FOR DETAILS PCP: OCTAVIO Allergies and Home Medications Allergies Coded Allergies: No Known Drug Allergies (Unverified , 10/05/19) Home Medications Aspirin 81 Mg Tablet., 81 MG PO DAILY Prescribed by: SILVANA CALDERÓN on 11/18/19 1047 Carvedilol 3.125 Mg Tablet, 3.125 MG PO BID Prescribed by: SILVANA CALDERÓN on 11/18/19 1047 Furosemide 20 Mg Tablet, 20 MG PO DAILY Prescribed by: SILVANA CALDERÓN on 11/18/19 104 Losartan Potassium 25 Mg Tablet, 25 MG PO DAILY Prescribed by: SILVANA CALDERÓN on 11/18/191046 Ondansetron 8 Mg Tab.rapdis, 8 MG PO Q4H PRN for NAUSEA/VOMITING Prescribed by: VALERIE BROWN on 11/25/19 180 Pantoprazole Sodium 40 Mg Tablet.dr, 40 MG PO DAILY Prescribed by: VALERIE BROWN on 11/25/19 180 Potassium Chloride 10 Meq Tablet.er, 10 MEQ PO DAILY@0700 Prescribed by: SILVANA CALDERÓN on 11/18/19 104 Patient Home Medication List Home Medication List Reviewed: Yes Review of Systems Review of Systems Constitutional: no symptoms reported Respiratory: No Symptoms Reported Cardiovascular: No Symptoms Reported Gastrointestinal: See HPI; Denies Abdominal Pain; Nausea, Vomiting Genitourinary: No Symptoms Reported Musculoskeletal: no symptoms reported Skin: no symptoms reported Psychiatric/Neurological: See HPI (SUBSTANCE ABUSE) Endocrine: No Symptoms Reported Hematologic/Lymphatic: No Symptoms Reported Past [id number] Hx Past Med/Social Hx: Reviewed and Corrections made Patient Social History Alcohol Use: Denies Use Recreational Drug Use: Yes (METH, THC, COCAINE, "OTHERS" DENIES IV USE) Drug of Choice: THC, METH, COCAINE, "OTHERS" DENIES IV USE Smoking Status: Never a Smoker 2nd Hand Smoke Exposure: Yes Recent Foreign Travel: No Contact w/Someone Who Travel: No Recent Infectious Disease Expo: No Recent Hopitalizations: No Immunizations Up To Date Tetanus Booster (TDap): Unknown Date of Pneumonia Vaccine: Dec 07, 2018 Seasonal Allergies Seasonal Allergies: Yes (USE INHALER) Past Medical History Surgeries: Yes (CARDIAC CATH 11/2019--NO INTERVENTION) Cardiac Respiratory: Yes Asthma Currently Using CPAP: No Currently Using BIPAP: No Cardiac: Yes (CHF--NEEDS LIFEVEST; NSTEMI; EF 10%) Cardiomyopathy, Coronary Artery Disease, Heart Attack, Hypertension Neurological: No Sexually Transmitted Disease: Yes (CHLAMYDIA; GONORRHEA 10/05/19) Genitourinary: No Gastrointestinal: No Musculoskeletal: No Endocrine: No HEENT: No Cancer: No Psychosocial: Yes (SUBSTANCE ABUSE) Integumentary: No Blood Disorders: No Family Medical History Asthma AUNT Hypertension MOTHER No Pertinent Family Hx HAS BEEN OUT OF [facility] SINCE 2018 Physical Exam Vital Signs Vital Signs - First Documented 11/25/19 14:32 Temp 37.5 Pulse 117 Resp 22 B/P (MAP) 139/77 (97) Pulse Ox 98 O2 Delivery Room Air Capillary Refill : Less Than 3 Seconds Height/Weight/BMI Height: '" Weight: lbs. oz. kg; 25.00 BMI Method: General Appearance: WD/WN, no apparent distress, other (TALKS RAPIDLY, NON- STOP, REPEATING PHRASES OVER AND OVER. PT ON CELL PHONE ON ARRIVAL AND CONTINUES CONVERSATION AT LENGTH. ) Respiratory: chest non-tender, normal breath sounds, no respiratory distress, no accessory muscle use Cardiovascular: no edema, no murmur, tachycardia (120'S) Gastrointestinal: normal bowel sounds, soft, no organomegaly, no pulsatile mass; No distended, No guarding, No rebound; tenderness (MILD EPIGASTRIC TENDERNESS); No hernia, No mass Extremities: normal inspection, no pedal edema, no calf tenderness, normal capillary refill Back: no CVA tenderness Neurologic/Psychiatric: patent prosecution paralegal II-XII nml as tested, no motor/sensory deficits, alert, oriented x 3, other (ANXIOUS) Skin: normal color (PT IS BLACK), warm/dry Progress/Results/Core Measures Results/Orders Lab Results Laboratory Tests Test 11/25/19 15:23 11/25/19 15:26 11/25/19 18:18 Range/Units White Blood Count 8.0 4.3-11.0 10^3/uL Red Blood Count 4.43 4.35-5.85 10^6/uL Hemoglobin 12.6 L 13.3-17.7 G/DL Hematocrit 39 L 40-54 % Mean Corpuscular Volume 87 80-99 FL Mean Corpuscular Hemoglobin 28 25-34 PG Mean Corpuscular Hemoglobin Concent 33 32-36 G/DL Red Cell Distribution Width 14.3 10.0-14.5 % Platelet Count 249 130-400 10^3/uL Mean Platelet Volume 10.5 H 7.4-10.4 FL Neutrophils (%) (Auto) 81 H 42-75 % Lymphocytes (%) (Auto) 11 L 12-44 % Monocytes (%) (Auto) 8 0-12 % Eosinophils (%) (Auto) 0 0-10 % Basophils (%) (Auto) 0 0-10 % Neutrophils # (Auto) 6.5 1.8-7.8 X 10^3 Lymphocytes # (Auto) 0.8 L 1.0-4.0 X 10^3 Monocytes # (Auto) 0.6 0.0-1.0 X 10^3 Eosinophils # (Auto) 0.0 0.0-0.3 10^3/uL Basophils # (Auto) 0.0 0.0-0.1 10^3/uL Prothrombin Time 16.0 H 12.2-14.7 SEC INR Comment 1.2 0.8-1.4 Activated Partial Thromboplast Time 34 24-35 SEC Sodium Level 134 L 135-145 MMOL/L Potassium Level 4.9 3.6-5.0 MMOL/L Chloride Level 102 98-107 MMOL/L Carbon Dioxide Level 21 21-32 MMOL/L Anion Gap 11 5-14 MMOL/L Blood Urea Nitrogen 16 7-18 MG/DL Creatinine 1.25 0.60-1.30 MG/DL Estimat Glomerular Filtration Rate > 60 BUN/Creatinine Ratio 13 Glucose Level 106 H 70-105 MG/DL Calcium Level 8.7 8.5-10.1 MG/DL Corrected Calcium 9.1 8.5-10.1 MG/DL Magnesium Level 1.9 1.6-2.4 MG/DL Total Bilirubin 2.0 H 0.1-1.0 MG/DL Aspartate Amino Transf (AST/SGOT) 260 H 5-34 U/L Alanine Aminotransferase (ALT/SGPT) 235 H 0-55 U/L Alkaline Phosphatase 151 H 40-136 U/L Total Protein 6.7 6.4-8.2 GM/DL Albumin 3.5 3.2-4.5 GM/DL Amylase Level 35 25-125 U/L Serum Alcohol < 10 <10 MG/DL Urine Color YELLOW Urine Clarity CLEAR Urine pH 6.5 5-9 Urine Specific [place] 1.015 L 1.016-1.022 Urine Protein 2+ H NEGATIVE Urine Glucose (UA) NEGATIVE NEGATIVE Urine Ketones NEGATIVE NEGATIVE Urine Nitrite NEGATIVE NEGATIVE Urine Bilirubin 1+ H NEGATIVE Urine Urobilinogen >=8.0 < = 1.0 MG/DL Urine Leukocyte Esterase NEGATIVE NEGATIVE Urine RBC (Auto) TRACE-I NEGATIVE Urine RBC RARE /HPF Urine WBC RARE /HPF Urine Crystals NONE /LPF Urine Bacteria TRACE /HPF Urine Casts NONE /LPF Urine Mucus NEGATIVE /LPF Urine Culture Indicated NO Urine Opiates Screen NEGATIVE NEGATIVE Urine Oxycodone Screen NEGATIVE NEGATIVE Urine Methadone Screen NEGATIVE NEGATIVE Urine Propoxyphene Screen NEGATIVE NEGATIVE Urine Barbiturates Screen NEGATIVE NEGATIVE Ur Tricyclic Antidepressants Screen NEGATIVE NEGATIVE Urine Phencyclidine Screen NEGATIVE NEGATIVE Urine Amphetamines Screen NEGATIVE NEGATIVE Urine Methamphetamines Screen NEGATIVE NEGATIVE Urine Benzodiazepines Screen NEGATIVE NEGATIVE Urine Cocaine Screen NEGATIVE NEGATIVE Urine Cannabinoids Screen NEGATIVE NEGATIVE My Orders Orders - VALERIE BROWN DO Ed Iv/Invasive Line Start (11/25/19 14:53) Monitor-Rhythm Ecg Trace Only (11/25/19 14:53) Alcohol (11/25/19 14:53) Amylase (11/25/19 14:53) Cbc With Automated Diff (11/25/19 14:53) Comprehensive Metabolic Panel (11/25/19 14:53) Drug Screen Stat (Urine) (11/25/19 14:53) Magnesium (11/25/19 14:53) Protime With Inr (11/25/19 14:53) Partial Thromboplastin Time (11/25/19 14:53) Ua Culture If Indicated (11/25/19 14:53) Ondansetron Injection (Zofran Injectio (11/25/19 15:00) Ed Iv/Invasive Line Start (11/25/19 14:53) Lactated Ringers (Lr 1000 Ml Iv Solution (11/25/19 14:53) Pantoprazole Injection (Protonix Injecti (11/25/19 15:00) Us Abdomen Complete [id number] (11/25/19 15:49) Carvedilol Tablet (Coreg Tablet) (11/25/19 16:15) Losartan Tablet (Cozaar Tablet) (11/25/19 16:15) Hepatitis Panel Acute (11/25/19 18:04) Hiv 1&2 Antibody (11/25/19 18:04) Medications Given in ED Current Medications Medications Dose Ordered Sig/Nelly Route Start Time Stop Time Status Last Admin Dose Admin Carvedilol 3.125 mg ONCE ONCE PO 11/25/19 16:15 11/25/19 16:16 DC 11/25/19 18:13 3.125 MG Lactated Ringer's 1,000 ml @ 0 mls/hr Q0M ONCE IV 11/25/19 14:53 11/25/19 14:55 DC 11/25/19 15:20 0 MLS/HR Losartan Potassium 25 mg ONCE ONCE PO 11/25/19 16:15 11/25/19 16:16 DC 11/25/19 18:14 25 MG Ondansetron HCl 8 mg ONCE ONCE IVP 11/25/19 15:00 11/25/19 15:01 DC 11/25/19 15:20 8 MG Pantoprazole 40 mg ONCE ONCE IV 11/25/19 15:00 11/25/19 15:01 DC 11/25/19 15:20 40 MG Vital Signs/I&O 11/25/19 11/25/19 14:32 18:24 Temp 37.5 Pulse 117 114 Resp 22 20 B/P (MAP) 139/77 (97) 157/102 Pulse Ox 98 99 O2 Delivery Room Air Blood Pressure Mean: 97 Progress Progress Note : Progress Note GIVEN IV FLUIDS, ZOFRAN AND PROTONIX--NAUSEA RESOLVED GIVEN WATER AND CRACKERS--PT TOLERATED WELL. UNEVENTFUL ER STAY Diagnostic Imaging Comments ABDOMINAL ULTRASOUND, PER RADIOLOGIST REPORT AT 1743 FINDINGS: Liver: The liver is of normal size and echotexture without parenchymal distorting solid or cystic masses. The main portal vein is patent. Bile ducts and gallbladder: There is no pericholecystic fluid, gallbladder wall thickening or gallstones. The gallbladder wall measures 0.3 cm. The common bile duct measures 0.4 cm in diameter. Spleen: The spleen is normal. Right kidney: The right kidney is of normal size and contour with good corticomedullary differentiation. There are no shadowing calculi or cortical deforming solid or cystic masses. No hydronephrosis. The right kidney measures 10.1 cm x 5.3 cm x 5.0 cm. Left kidney: The left kidney is of normal size and contour with good corticomedullary differentiation. There are no shadowing calculi or cortical deforming solid or cystic masses. No hydronephrosis. The left kidney measures 10.6 cm x 5.9 cm x 5.8 cm. Pancreas: The visualized portions of the pancreas are unremarkable. Aorta: The aorta is of normal caliber. Inferior vena cava: The inferior vena cava is of normal caliber. IMPRESSION: 1. Unremarkable complete abdominal ultrasound. Reviewed: Reviewed by Me Departure Impression Primary Impression: Nausea and vomiting Additional Impressions: Elevated liver enzymes HTN (hypertension) Recent non-ST elevation myocardial infarction (NSTEMI) CHF (congestive heart failure) History of methamphetamine use Disposition: HOME, SELF-CARE Condition: Improved Departure-Patient Inst. Referrals: [facility] Patient Instructions: Controlling Your Blood Pressure Through Lifestyle, High Blood Pressure (DC), Liver Function Test, Nausea and Vomiting, Adult (DC) Add. Discharge Instructions: NO TYLENOL NO ALCOHOL CLEAR LIQUIDS--WATER, BROTH, JELLO, GATORADE BLAND DIET--NO SPICY, GREASY/HIGH FAT OR ACIDIC FOOD OR DRINKS FOLLOW UP WITH [facility] 3-4 DAYS FOR FURTHER CARE, RETURN TO ER IF WORSE All discharge instructions reviewed with patient and/or family. Voiced un derstanding. Scripts Pantoprazole Sodium (Protonix) 40 Mg Tablet.dr 40 MG PO DAILY, #15 TAB Prov: VALERIE BROWN DO 11/25/19 Ondansetron (Ondansetron Odt) 8 Mg Tab.rapdis 8 MG PO Q4H PRN for NAUSEA/VOMITING, #10 TAB Prov: VALERIE BROWN DO 11/25/19 VALERIE BROWN DO Nov 25, 2019 15:32
[2019-11-25 15:38] LABS: ALBUMIN 3.5 GM/DL (3.2-4.5)
[2019-11-25 15:38] LABS: BILIRUBIN,URINE 1+ (NEGATIVE); CLARITY,URINE CLEAR; COLOR,URINE YELLOW; GLUCOSE, URINE (UA) NEGATIVE (NEGATIVE); KETONES,URINE NEGATIVE (NEGATIVE); LEUKOCYTE ESTERASE ,URINE NEGATIVE (NEGATIVE); NITRITE,URINE NEGATIVE (NEGATIVE); PH,URINE 6.5 (5-9); PROTEIN,URINE 2+ (NEGATIVE)
[2019-11-25 15:39] LABS: CHLORIDE 102 MMOL/L (98-107); POTASSIUM 4.9 MMOL/L (3.6-5.0); SODIUM 134 MMOL/L (135-145)
[2019-11-25 15:40] LABS: AMYLASE 35 U/L (25-125); CALCIUM 8.7 MG/DL (8.5-10.1); INR 1.2 (0.8-1.4)
[2019-11-25 15:41] LABS: GLUCOSE 106 MG/DL (70-105); TOTAL PROTEIN 6.7 GM/DL (6.4-8.2)
[2019-11-25 15:42] LABS: CARBON DIOXIDE 21 MMOL/L (21-32)
[2019-11-25 15:44] LABS: ALKALINE PHOSPHATASE 151 U/L (40-136)
[2019-11-25 15:44] LABS: BACTERIA,URINE TRACE /HPF; RBC,URINE RARE /HPF; WBC,URINE RARE /HPF
[2019-11-25 15:45] LABS: CREATININE SERUM 1.25 MG/DL (0.60-1.30); GFR ESTIMATED > 60
[2019-11-25 15:46] LABS: BUN/CREATININE RATIO 13
[2019-11-25 15:47] LABS: ALANINE AMINOTRANSFERASE 235 U/L (0-55); MAGNESIUM 1.9 MG/DL (1.6-2.4)
[2019-11-25 15:50] LABS: AMPHETAMINE SCREEN, URINE NEGATIVE (NEGATIVE); BARBITURATE SCREEN URINE NEGATIVE (NEGATIVE); BENZODIAZEPINES SCREEN URINE NEGATIVE (NEGATIVE); CANNABINOID SCREEN, URINE NEGATIVE (NEGATIVE); COCAINE SCREEN URINE NEGATIVE (NEGATIVE); METHADONE STAT NEGATIVE (NEGATIVE); METHAMPHETAMINE SCREEN URINE S NEGATIVE (NEGATIVE); OPIATE SCREEN URINE NEGATIVE (NEGATIVE); OXYCODONE STAT NEGATIVE (NEGATIVE); PROPOXYPHENE STAT NEGATIVE (NEGATIVE); TRICYCLIC ANTIDEPRESSANTS SCRE NEGATIVE (NEGATIVE)
[2019-11-25] MEDS ORDERED: CARVEDILOL 3.125 MG (COREG) TABLET PO ONE (16:15)
[2019-11-25] MEDS ORDERED: LOSARTAN 25 MG (COZAAR) TAB PO ONE (16:15)
--- NOTE | 2019-11-25 17:38 | Diagnostic Imaging Report ---
EXAM: ABDOMEN COMPLETE ULTRASOUND DATE: November 25, 2019. COMPARISON: None. INDICATION: 39-year-old male, abdominal pain. PROCEDURE: Two-dimensional ultrasound examination of the abdomen is performed. FINDINGS: Liver: The liver is of normal size and echotexture without parenchymal distorting solid or cystic masses. The main portal vein is patent. Bile ducts and gallbladder: There is no pericholecystic fluid, gallbladder wall thickening or gallstones. The gallbladder wall measures 0.3 cm. The common bile duct measures 0.4 cm in diameter. Spleen: The spleen is normal. Right kidney: The right kidney is of normal size and contour with good corticomedullary differentiation. There are no shadowing calculi or cortical deforming solid or cystic masses. No hydronephrosis. The right kidney measures 10.1 cm x 5.3 cm x 5.0 cm. Left kidney: The left kidney is of normal size and contour with good corticomedullary differentiation. There are no shadowing calculi or cortical deforming solid or cystic masses. No hydronephrosis. The left kidney measures 10.6 cm x 5.9 cm x 5.8 cm. Pancreas: The visualized portions of the pancreas are unremarkable. Aorta: The aorta is of normal caliber. Inferior vena cava: The inferior vena cava is of normal caliber. IMPRESSION: 1. Unremarkable complete abdominal ultrasound. Dictated by: Dictated on workstation # [id number]
[2019-11-25] MEDS ORDERED: PANT40TA2 PO (18:09)
[2019-11-25] MEDS ORDERED: ONDA8TAB13 PO (18:09)
[2019-11-25 18:24] VITALS: BP 157/102
[2019-11-28 14:36] LABS: HEPATITIS C ANTIBODY C Non-Reactive (Non-Reactive)
== END 2019-11-25 18:24 | disposition home or self-care (01) ==
LOC: EDUNIT# 14:14 → ER 14:16
DX: R11.2 Nausea with vomiting, unspecified (principal); R94.5 Abnormal results of liver function studies; I11.0 Hypertensive heart disease with heart failure; I50.9 Heart failure, unspecified; I25.2 Old myocardial infarction; I25.10 Atherosclerotic heart disease of native coronary artery without angina pectoris; Z86.59 Personal history of other mental and behavioral disorders; Z79.82 Long term (current) use of aspirin; Z77.22 Contact with and (suspected) exposure to environmental tobacco smoke (acute) (chronic)
CPT/HCPCS: 76700; 80053; 80074; 80306; 81000; 82150; 83735; 85025; 85610; 85730; 86703; 93041; 99284; G0480; 36415; 80320

== ENCOUNTER 2019-12-06 01:45 | Inpatient (IN) | payer SELFPAY ==
[2019-12-06] VITALS (16 sets, daily range): BP systolic 128–176; BP diastolic 86–131
[~2019-12-06] VITALS: Ht 172 cm; Wt 76.1 kg
[~2019-12-06 01:45] MED LIST changes: +ONDA8TAB13 PO; +PANT40TA2 PO
[2019-12-06] MEDS ORDERED: NITROGLYCERIN 0.4 MG SL TABS BTL 25'S SL PRN (02:00)
[2019-12-06] MEDS ORDERED: ASPIRIN 81 MG CHEW (CHILDREN'S ASA) PO ONE (02:00)
--- NOTE | 2019-12-06 02:03 | ED Respiratory ---
General Stated Complaint: SOB Source: patient Exam Limitations: no limitations History of Present Illness Date Seen by Provider: Dec 06, 2019 Time Seen by Provider: 01:51 Initial Comments Patient arrives ER by private conveyance with chief complaint that he's had shortness of breath since discharging from the hospital a week ago after having a heart attack. He says he had a heart catheter done. He does not know his doctors names nor when his follow-up appointments are. He does not know what medications she supposed to be taking. He says that his family helped him get a life vest but has not arrived yet. He says when he was at the hospital he felt okay but ever since then he's felt very poorly. He's having a little pain in his epigastric region but none in his chest. No nausea sweats fevers chills cough. The patient says he was given a breathing treatment for an inhaler that seemed to help him however he lost it. Denies drinking or smoking. Last stimulant use was methamphetamine in the weeks prior to his admission for heart attack. Congestive heart failure, acute left ventricular systolic dysfunction with eje ction fraction 10 percent, unknown etiology, nonischemic cardiomyopathy, continue on Coreg and losartan, Lasix and potassium replacement Patient will be fitted for LifeVest for primary prevention Cardiac catheterization showed normal coronary with no significant obstructive disease, normal aortic arch and great vessels of the neck Allergies and Home Medications Allergies Coded Allergies: No Known Drug Allergies (Unverified , 10/05/19) Home Medications Aspirin 81 Mg Tablet., 81 MG PO DAILY Prescribed by: SILVANA CALDERÓN on 11/18/19 104 Carvedilol 3.125 Mg Tablet, 3.125 MG PO BID Prescribed by: SILVANA CALDERÓN on 11/18/19 104 Furosemide 20 Mg Tablet, 20 MG PO DAILY Prescribed by: SILVANA CALDERÓN on 11/18/19 104 Losartan Potassium 25 Mg Tablet, 25 MG PO DAILY Prescribed by: SILVANA CALDERÓN on 11/18/19 104 Ondansetron 8 Mg Tab.rapdis, 8 MG PO Q4H PRN for NAUSEA/VOMITING Prescribed by: VALERIE BROWN on 11/25/19 180 Pantoprazole Sodium 40 Mg Tablet., 40 MG PO DAILY Prescribed by: VALERIE BROWN on 11/25/191808 Potassium Chloride 10 Meq Tablet.er, 10 MEQ PO DAILY@0700 Prescribed by: SILVANA CALDERÓN on 11/18/19 1047 Patient Home Medication List Home Medication List Reviewed: Yes Review of Systems Review of Systems Constitutional: No chills, No fever, No malaise EENTM: No ear discharge, No ear pain Respiratory: No cough, No short of breath Cardiovascular: No chest pain, No edema Gastrointestinal: No abdominal pain, No nausea, No vomiting Genitourinary: No discharge, No dysuria Musculoskeletal: No back pain, No joint pain All Other Systems Reviewed Negative Unless Noted: Yes Past Dvnymlt-Eebejd-Ekrtpv Hx Patient Social History Drug of Choice: THC, METH, COCAINE, "OTHERS" DENIES IV USE 2nd Hand Smoke Exposure: Yes Recent Foreign Travel: No Contact w/Someone Who Travel: No Recent Hopitalizations: No Immunizations Up To Date Tetanus Booster (TDap): Unknown Date of Pneumonia Vaccine: Dec 07, 2018 Seasonal Allergies Seasonal Allergies: Yes (USE INHALER) Past Medical History Surgeries: Yes (CARDIAC CATH 11/2019--NO INTERVENTION) Cardiac Respiratory: Yes Asthma Currently Using CPAP: No Currently Using BIPAP: No Cardiac: Yes (CHF--NEEDS LIFEVEST; NSTEMI; EF 10%) Cardiomyopathy, Coronary Artery Disease, Heart Attack, Hypertension Neurological: No Sexually Transmitted Disease: Yes (CHLAMYDIA; GONORRHEA 10/05/19) Genitourinary: No Gastrointestinal: No Musculoskeletal: No Endocrine: No HEENT: No Cancer: No Psychosocial: Yes (SUBSTANCE ABUSE) Integumentary: No Blood Disorders: No Family Medical History Asthma AUNT Hypertension MOTHER No Pertinent Family Hx HAS BEEN OUT OF ALF SINCE 2018 Physical Exam Vital Signs - First Documented 12/06/19 12/06/19 01:54 02:06 Temp 36.7 Pulse 121 Resp 22 B/P (MAP) 177/127 (144) Pulse Ox 99 O2 Delivery Nasal Cannula O2 Flow Rate 2.00 Capillary Refill : Height: '" Weight: lbs. oz. kg; 25.00 BMI Method: General Appearance: WD/WN, moderate distress Eyes: Bilateral Eye Normal Inspection, Bilateral Eye PERRL, Bilateral Eye EOMI HEENT: PERRL/EOMI, normal ENT inspection, pharynx normal Neck: full range of motion, normal inspection Respiratory: lungs clear, respiratory distress (kgdq-zc-djfkprjd with respiratory rate around 30 and oxygen saturation 94-96% on room air.) Cardiovascular: normal peripheral pulses, regular rate, rhythm Gastrointestinal: non tender, soft Neurologic/Psychiatric: alert, normal mood/affect, oriented x 3 Skin: normal color, warm/dry Progress/Results/Core Measures Suspected Sepsis SIRS Temperature: Pulse: Respiratory Rate: Laboratory Tests 12/06/19 01:54: White Blood Count 8.6 Blood Pressure / Mean: Laboratory Tests 12/06/19 01:54: Creatinine 1.15, INR Comment 1.1, Platelet Count 362, Total Bilirubin 0.8 Results/Orders Lab Results Laboratory Tests Test 12/06/19 01:54 12/06/19 02:08 12/06/19 02:25 12/06/19 02:57 Range/Units White Blood Count 8.6 4.3-11.0 10^3/uL Red Blood Count 5.02 4.30-5.52 10^6/uL Hemoglobin 14.3 13.3-17.7 g/dL Hematocrit 46 40-54 % Mean Corpuscular Volume 92 80-99 fL Mean Corpuscular Hemoglobin 29 25-34 pg Mean Corpuscular Hemoglobin Concent 31 L 32-36 g/dL Red Cell Distribution Width 15.2 H 10.0-14.5 % Platelet Count 362 130-400 10^3/uL Mean Platelet Volume 9.8 9.0-12.2 fL Immature Granulocyte % (Auto) 1 % Neutrophils (%) (Auto) 81 H 42-75 % Lymphocytes (%) (Auto) 12 12-44 % Monocytes (%) (Auto) 5 0-12 % Eosinophils (%) (Auto) 1 0-10 % Basophils (%) (Auto) 0 0-10 % Neutrophils # (Auto) 7.0 1.8-7.8 10^3/uL Lymphocytes # (Auto) 1.0 1.0-4.0 10^3/uL Monocytes # (Auto) 0.4 0.0-1.0 10^3/uL Eosinophils # (Auto) 0.1 0.0-0.3 10^3/uL Basophils # (Auto) 0.0 0.0-0.1 10^3/uL Immature Granulocyte # (Auto) 0.0 0.0-0.1 10^3/uL Prothrombin Time 14.8 H 12.2-14.7 SEC INR Comment 1.1 0.8-1.4 Activated Partial Thromboplast Time 27 24-35 SEC Sodium Level 138 135-145 MMOL/L Potassium Level 4.3 3.6-5.0 MMOL/L Chloride Level 104 98-107 MMOL/L Carbon Dioxide Level 25 21-32 MMOL/L Anion Gap 9 5-14 MMOL/L Blood Urea Nitrogen 12 7-18 MG/DL Creatinine 1.15 0.60-1.30 MG/DL Estimat Glomerular Filtration Rate > 60 BUN/Creatinine Ratio 10 Glucose Level 128 H 70-105 MG/DL Calcium Level 8.4 L 8.5-10.1 MG/DL Corrected Calcium 8.7 8.5-10.1 MG/DL Magnesium Level 1.9 1.6-2.4 MG/DL Total Bilirubin 0.8 0.1-1.0 MG/DL Aspartate Amino Transf (AST/SGOT) 49 H 5-34 U/L Alanine Aminotransferase (ALT/SGPT) 116 H 0-55 U/L Alkaline Phosphatase 121 40-136 U/L Myoglobin 51.9 10.0-92.0 NG/ML Troponin I 0.132 H <0.028 NG/ML B-Type Natriuretic Peptide 3171.5 H <100.0 PG/ML Total Protein 6.7 6.4-8.2 GM/DL Albumin 3.6 3.2-4.5 GM/DL Lipase 29 8-78 U/L Serum Alcohol < 10 <10 MG/DL Blood Gas Puncture Site RIGHT RADIAL RIGHT RADIAL Blood Gas Patient Temperature 36.7 36.7 Arterial Blood pH 7.28 *L 7.38 7.37-7.43 Arterial Blood Partial Pressure CO2 63 H 46 H 35-45 MMHG Arterial Blood Partial Pressure O2 21 *L 39 *L 79-93 MMHG Arterial Blood HCO3 29 H 27 23-27 MMOL/L Arterial Blood Total CO2 30.4 28.1 21.0-31.0 MMOL/L Arterial Blood Oxygen Saturation 13 L 65 L 94-100 % Arterial Blood Base Excess 2.3 1.9 -2.5-2.5 MMOL/L Remy Test POSITIVE POSITIVE Blood Gas Ventilator Setting NO NO Blood Gas Inspired Oxygen 2 2 Urine Color YELLOW Urine Clarity SL CLOUDY Urine pH 6.5 5-9 Urine Specific [place] 1.020 1.016-1.022 Urine Protein 1+ H NEGATIVE Urine Glucose (UA) NEGATIVE NEGATIVE Urine Ketones NEGATIVE NEGATIVE Urine Nitrite NEGATIVE NEGATIVE Urine Bilirubin NEGATIVE NEGATIVE Urine Urobilinogen 1.0 < = 1.0 MG/DL Urine Leukocyte Esterase NEGATIVE NEGATIVE Urine RBC (Auto) NEGATIVE NEGATIVE Urine RBC NONE /HPF Urine WBC NONE /HPF Urine Squamous Epithelial Cells RARE /HPF Urine Crystals NONE /LPF Urine Bacteria NEGATIVE /HPF Urine Casts NONE /LPF Urine Mucus NEGATIVE /LPF Urine Culture Indicated NO My Orders Orders - AUGUSTINE MASON Nitroglycerin 0.4 Mg Btl 25's (Nitrostat (12/06/19 02:00) Aspirin Chewable Tablet (Baby Aspirin Ch (12/06/19 02:00) Cbc With Automated Diff (12/06/19 01:55) Magnesium (12/06/19 01:55) Chest 1 View, Ap/Pa Only (12/06/19 01:55) Ekg Tracing (12/06/19 01:55) Comprehensive Metabolic Panel (12/06/19 01:55) Myoglobin Serum (12/06/19 01:55) Protime With Inr (12/06/19 01:55) Partial Thromboplastin Time (12/06/19 01:55) O2 (12/06/19 01:55) Monitor-Rhythm Ecg Trace Only (12/06/19 01:55) Lipid Panel (12/07/19 06:00) Ed Iv/Invasive Line Start (12/06/19 01:55) Lipase (12/06/19 01:55) BNP (12/06/19 01:55) Ua Culture If Indicated (12/06/19 01:56) Drug Screen Stat (Urine) (12/06/19 01:56) Albuterol/Ipra Inhalation Soln (Duoneb I (12/06/19 02:15) Svn Small Volume Nebulizer (12/06/19 02:04) Arterial Blood Gas (12/06/19 02:11) Alcohol (12/06/19 01:54) Troponin I (12/06/19 01:54) Arterial Blood Gas (12/06/19 02:23) Medications Given in ED Current Medications Medications Dose Ordered Sig/Nelly Route Start Time Stop Time Status Last Admin Dose Admin Albuterol/ Ipratropium 3 ml ONCE ONCE INH 12/06/19 02:15 12/06/19 02:16 DC 12/06/19 02:12 3 ML Aspirin 324 mg ONCE ONCE PO 12/06/19 02:00 12/06/19 02:01 DC 12/06/19 02:03 324 MG Nitroglycerin 0.4 mg UD PRN SL 12/06/19 02:00 12/06/19 02:04 0.4 MG Vital Signs/I&O 12/06/19 12/06/19 12/06/19 01:54 02:06 02:13 Temp 36.7 Pulse 121 Resp 22 B/P (MAP) 177/127 (144) Pulse Ox 99 95 98 O2 Delivery Nasal Cannula Nasal Cannula O2 Flow Rate 2.00 2.00 Capillary Refill : Progress Note #1: Time: 02:05 Progress Note Patient has increased worker breathing and some accessory muscle use. Lung sounds are diminished but no wheezing is heard. Integument DuoNeb see if that helps. Plan to give him some nitroglycerin as his initial blood pressure 215/135 and he has a history of a EF of 10%. He has nonischemic cardiomyopathy. Plan to give him aspirin anyways. Patient denies any recent drug use other than THC. We'll check some labs including a BNP and troponin. Initial EKG shows bundle b ranch block. Progress Note #2: Time: 02:43 Progress Note After a DuoNeb the patient's breathing is much more relaxed now under 20 breaths per minute. After a dose of nitroglycerin the patient said he felt maybe a little better and his blood pressure is 165/129. BNP is 3100. November 14 days ago it was 6500. He claims he is taking the Lasix one tablet daily like he was prescribed. Chest x-ray does show some mild congestion. Potassium is normal and I suspect that he may need some more Lasix. His ABG demonstrates hypoxia and it would be reasonable to hold onto him in the hospital. Last time he was here he went AGAINST MEDICAL ADVICE so we will offer him a stay in the hospital but he may not take it. ECG Initial ECG Impression Date: Dec 06, 2019 Initial ECG Impression Time: 01:52 Initial ECG Rate: 115 Initial ECG Rhythm: S.Tach Initial ECG Intervals: QT (519) Initial ECG Impression: Nonspecific Changes Initial ECG Comparisson: Unchanged Comment Left bundle branch block. Negative for Sgarbossa's criteria. Diagnostic Imaging Diagonstic Imaging: Xray Plain Films/CT/US/NM/MRI: chest (1v) Comments Mild to moderate pulmonary congestion. No infiltrates. Reviewed: Reviewed by Me Departure Communication (Admissions) Time/Spoke to Admitting Phy: 03:25 Discussed the case with Dr. Hassan and she agrees to accept the patient to the ICU with the eICU consult. Time/Spoke to Consulting Phy: 03:15 Discussed the case with Dr. Enciso and he agrees with Lasix 40 IV twice a day. Impression Primary Impression: Acute respiratory failure with hypoxemia Additional Impression: Acute on chronic heart failure Qualified Codes: I50.23 - Acute on chronic systolic (congestive) heart failure Disposition: ADMITTED INPATIENT Condition: Stable Admissions Decision to Admit Reason: Admit from ER (General) Decision to Admit/Date: Dec 06, 2019 Time/Decision to Admit Time: 03:10 Departure-Patient Inst. Referrals: NO,LOCAL PHYSICIAN (PCP/Family) Primary Care Physician AUGUSTINE MASON Dec 06, 2019 02:03
[2019-12-06 02:09] LABS: BASOPHILS % (AUTO) 0 % (0-10); EOSINOPHILS # (AUTO) 0.1 10^3/uL (0.0-0.3); EOSINOPHILS % (AUTO) 1 % (0-10); HEMATOCRIT 46 % (40-54); HEMOGLOBIN 14.3 g/dL (13.3-17.7); LYMPHOCYTES % (AUTO) 12 % (12-44); MEAN CORPUSCULAR HEMOGLOBIN 29 pg (25-34); MEAN CORPUSCULAR HGB CONC 31 g/dL (32-36); MEAN CORPUSCULAR VOLUME 92 fL (80-99); MEAN PLATELET VOLUME 9.8 fL (9.0-12.2); MONOCYTES # (AUTO) 0.4 10^3/uL (0.0-1.0); MONOCYTES % (AUTO) 5 % (0-12); NEUTROPHILS % (AUTO) 81 % (42-75); PLATELET COUNT 362 10^3/uL (130-400); WHITE BLOOD COUNT 8.6 10^3/uL (4.3-11.0)
[2019-12-06 02:14] LABS: INR 1.1 (0.8-1.4); PROTHROMBIN TIME PATIENT 14.8 SEC (12.2-14.7)
[2019-12-06 02:15] LABS: ABG BASE EXCESS 2.3 MMOL/L (-2.5-2.5); ABG OXYGEN SATURATION 13 % (94-100); ABG PCO2 63 MMHG (35-45); ABG TCO2 30.4 MMOL/L (21.0-31.0)
[2019-12-06 02:15] LABS: ALBUMIN 3.6 GM/DL (3.2-4.5); CHLORIDE 104 MMOL/L (98-107); POTASSIUM 4.3 MMOL/L (3.6-5.0); SODIUM 138 MMOL/L (135-145)
[2019-12-06] MEDS ORDERED: RT-ALBUTEROL/IPRATROPIUM 3 ML (DUONEB) VIAL INH ONE (02:15)
[2019-12-06 02:16] LABS: CALCIUM 8.4 MG/DL (8.5-10.1)
[2019-12-06 02:16] LABS: ABG PO2 21 MMHG (79-93)
[2019-12-06 02:17] LABS: GLUCOSE 128 MG/DL (70-105); TOTAL PROTEIN 6.7 GM/DL (6.4-8.2)
[2019-12-06 02:18] LABS: ABG PH 7.28 (7.37-7.43)
[2019-12-06 02:18] LABS: CARBON DIOXIDE 25 MMOL/L (21-32)
[2019-12-06 02:19] LABS: ALLENS TEST POSITIVE; INSPIRED O2 2; PATIENT TEMP 36.7; VENTILATOR NO
[2019-12-06 02:19] LABS: BILIRUBIN,TOTAL 0.8 MG/DL (0.1-1.0)
[2019-12-06 02:20] LABS: ALKALINE PHOSPHATASE 121 U/L (40-136)
[2019-12-06 02:21] LABS: CREATININE SERUM 1.15 MG/DL (0.60-1.30); GFR ESTIMATED > 60
[2019-12-06 02:22] LABS: BUN/CREATININE RATIO 10
[2019-12-06 02:24] LABS: ALANINE AMINOTRANSFERASE 116 U/L (0-55); MAGNESIUM 1.9 MG/DL (1.6-2.4)
[2019-12-06 02:25] LABS: LIPASE 29 U/L (8-78)
[2019-12-06 02:35] LABS: ABG BASE EXCESS 1.9 MMOL/L (-2.5-2.5); ABG OXYGEN SATURATION 65 % (94-100); ABG PCO2 46 MMHG (35-45); ABG PH 7.38 (7.37-7.43); ABG TCO2 28.1 MMOL/L (21.0-31.0)
[2019-12-06 02:37] LABS: ABG PO2 39 MMHG (79-93)
[2019-12-06 02:38] LABS: ALLENS TEST POSITIVE; INSPIRED O2 2; PATIENT TEMP 36.7; VENTILATOR NO
--- NOTE | 2019-12-06 02:46 | NUR ---
AT PATIENT REQUEST CHRISTIAN Villalobos.Jermaine LAZARO CONTACTED AND UPDATED OF PATIENT CONDITION. PHONE NUMBER FOR JUNE IS [phone]
[2019-12-06 03:03] LABS: BILIRUBIN,URINE NEGATIVE (NEGATIVE); CLARITY,URINE SL CLOUDY; COLOR,URINE YELLOW; GLUCOSE, URINE (UA) NEGATIVE (NEGATIVE); KETONES,URINE NEGATIVE (NEGATIVE); LEUKOCYTE ESTERASE ,URINE NEGATIVE (NEGATIVE); NITRITE,URINE NEGATIVE (NEGATIVE); PH,URINE 6.5 (5-9); PROTEIN,URINE 1+ (NEGATIVE)
[2019-12-06 03:11] LABS: BACTERIA,URINE NEGATIVE /HPF; SQUAMOUS EPITHELIAL CELL,UR RARE /HPF
--- NOTE | 2019-12-06 03:23 | NUR ---
PATIENT REQUESTED SIGNIFICANT OTHER LAZARO BE NOTIFIED OF HIS CONDITION AND HOSPITAL STATUS. LAZARO'S PHONE NUMBER IS [phone]. AT THIS JUNE IS UPDATED OF PATIENT ADMISSION TO HOSPITAL AND PATIENTS REQUEST FOR HIS PHONE.
[2019-12-06 03:27] LABS: AMPHETAMINE SCREEN, URINE NEGATIVE (NEGATIVE); BARBITURATE SCREEN URINE NEGATIVE (NEGATIVE); BENZODIAZEPINES SCREEN URINE NEGATIVE (NEGATIVE); CANNABINOID SCREEN, URINE POSITIVE (NEGATIVE); COCAINE SCREEN URINE NEGATIVE (NEGATIVE); METHADONE STAT NEGATIVE (NEGATIVE); METHAMPHETAMINE SCREEN URINE S NEGATIVE (NEGATIVE); OPIATE SCREEN URINE NEGATIVE (NEGATIVE); OXYCODONE STAT NEGATIVE (NEGATIVE); PROPOXYPHENE STAT NEGATIVE (NEGATIVE); TRICYCLIC ANTIDEPRESSANTS SCRE NEGATIVE (NEGATIVE)
[2019-12-06] MEDS ORDERED: FUROSEMIDE 40 MG/4 ML INJ (LASIX) IVP ONE (03:30)
[2019-12-06] MEDS ORDERED: ACETAMINOPHEN 325 MG TABLET PO PRN (04:30)
--- NOTE | 2019-12-06 04:42 | Pulmonary Consultation ---
History of Present Illness History of Present Illness Date Seen by Provider: Dec 06, 2019 Time Seen by Provider: 04:39 Date of Admission Allergies and Home Medications Allergies Coded Allergies: No Known Drug Allergies (Unverified , 10/05/19) Home Medications Aspirin 81 Mg Tablet.dr, 81 MG PO DAILY Prescribed by: SILVANA CALDERÓN on 11/18/19 1047 Carvedilol 3.125 Mg Tablet, 3.125 MG PO BID Prescribed by: SILVANA CALDERÓN on 11/18/19 1047 Furosemide 20 Mg Tablet, 20 MG PO DAILY Prescribed by: SILVANA CALDERÓN on 11/18/19 1047 Losartan Potassium 25 Mg Tablet, 25 MG PO DAILY Prescribed by: SILVANA CALDERÓN on 11/18/19 1047 Ondansetron 8 Mg Tab.rapdis, 8 MG PO Q4H PRN for NAUSEA/VOMITING Prescribed by: VALERIE BROWN on 11/25/19 1809 Pantoprazole Sodium 40 Mg Tablet.dr, 40 MG PO DAILY Prescribed by: VALERIE BROWN on 11/25/19 1809 Potassium Chloride 10 Meq Tablet.er, 10 MEQ PO DAILY@0700 Prescribed by: SILVANA CALDERÓN on 11/18/19 1047 Past Fszyotb-Sjexfx-Mzisky Hx Patient Social History Alcohol Use: Denies Use Recreational Drug Use: Yes Drug of Choice: MARIJUANA Smoking Status: Former Smoker 2nd Hand Smoke Exposure: No Recent Foreign Travel: No Contact w/Someone Who Travel: No Recent Infectious Disease Expo: No Recent Hopitalizations: No Physical Abuse: No Sexual Abuse: No Mistreated: No Fear: No Immunizations Up To Date Tetanus Booster (TDap): Unknown Date of Pneumonia Vaccine: Dec 07, 2018 Seasonal Allergies Seasonal Allergies: Yes (USE INHALER) Past Medical History Surgeries: Yes (CARDIAC CATH 11/2019--NO INTERVENTION) Cardiac Respiratory: Yes Asthma Currently Using CPAP: No Currently Using BIPAP: No Cardiac: Yes (CHF--NEEDS LIFEVEST; NSTEMI; EF 10%) Cardiomyopathy, Coronary Artery Disease, Heart Attack, Hypertension Neurological: No Sexually Transmitted Disease: Yes (CHLAMYDIA; GONORRHEA 10/05/19) Genitourinary: No Gastrointestinal: No Musculoskeletal: No Endocrine: No HEENT: No Cancer: No Psychosocial: Yes (SUBSTANCE ABUSE) Integumentary: No Blood Disorders: No Family Medical History Asthma AUNT Hypertension MOTHER No Pertinent Family Hx HAS BEEN OUT OF [facility] SINCE 2019 Sepsis Event Evaluation Height, Weight, BMI Height: '" Weight: lbs. oz. kg; 27.07 BMI Method: Exam Exam Vital Signs Date Time Temp Pulse Resp B/P (MAP) Pulse Ox O2 Delivery O2 Flow Rate FiO2 12/06/19 04:29 36.2 105 20 95 Room Air 12/06/19 04:10 105 28 158/119 (144) 97 Room Air 0 12/06/19 02:13 98 Nasal Cannula 2.00 12/06/19 02:06 36.7 121 22 177/127 (144) 95 12/06/19 01:54 99 Nasal Cannula 2.00 Height & Weight Height: '" Weight: lbs. oz. kg; 27.07 BMI Method: Capillary Refill: Less Than 3 Seconds Gastrointestinal: non tender, soft Results Lab Laboratory Tests 12/06/19 01:54 Assessment/Plan Assessment/Plan Acute respiratory distress secondary to pulmonary edema -Lasix Congestive heart failure with EF of 10% -Cardiology consulted -Life vest? Shortness of breath Illicit drug use Noncompliant EZEQUIEL SÁNCHEZ DO Dec 06, 2019 04:42
[2019-12-06] MEDS ORDERED: RT-ALBUTEROL/IPRATROPIUM 3 ML (DUONEB) VIAL INH PRN (05:00)
--- NOTE | 2019-12-06 05:19 | Diagnostic Imaging Report ---
INDICATION: Chest pain. Shortness of air. COMPARISON: 11/16/2019 FINDINGS: Single frontal radiographic view of the chest was obtained and demonstrates marked cardiomegaly and moderate pulmonary vascular congestion. There is also mild diffuse prominence of the pulmonary interstitium. No large effusion or pneumothorax is seen. Osseous structures show no gross acute abnormalities. IMPRESSION: 1. Persistent moderate cardiomegaly with pulmonary vascular congestion and probable diffuse interstitial pulmonary edema. Dictated by: Dictated on workstation # [id number]
[2019-12-06] MEDS ORDERED: KCL 20 MEQ TAB (K-DUR) PO ONE (06:47)
[2019-12-06] MEDS: FUROSEMIDE 40 MG/4 ML INJ (LASIX) IVP SCH ×2 (06:56→17:20)
[2019-12-06] MEDS ORDERED: FLU QUADRIvalent (3YOA+) 60 mcg/0.5 ml 2020-21 (AFLURIA) IM ONE (07:00)
[2019-12-06] MEDS ORDERED: KCL 20 MEQ TAB (K-DUR) PO SCH (07:00)
--- NOTE | 2019-12-06 07:35 | Consultation-Cardiology ---
HPI-Cardiology Cardiology Consultation Date of Consultation 12/06/19 Date of Admission Time Seen by Provider: 07:32 Indication: shortness of breath HPI 39 years old gentleman with severe nonischemic cardiomyopathy started on aggressive treatment and discharged from the hospital recently. Reported that he felt well initially on discharge been started to have increasing shortness of breath which was worsening to the point that he needed to come to the hospital for evaluation. He reported that he has been compliant with his medication taking his medication regularly. Reported compliance with diet. Currently laying down in bed comfortable, responded to IV Lasix and feeling somewhat better still have mild dyspnea Home Medications & Allergies Allergies: Coded Allergies: No Known Drug Allergies (Unverified , 10/05/19) Home Medication List Reviewed: Yes FOF-Sidtjz-Zaqkeb Hx Patient Social History Alcohol Use: Denies Use Recreational Drug Use: Yes Drug of Choice: MARIJUANA Smoking Status: Former Smoker 2nd Hand Smoke Exposure: No Recent Foreign Travel: No Recent Infectious Disease Expo: No Recent Hopitalizations: No Immunizations Up To Date Tetanus Booster (TDap): Unknown Date of Pneumonia Vaccine: Dec 07, 2018 Past Medical History Discussed below Family Medical History Significant Family History: No Pertinent Family Hx Family History: Asthma AUNT Hypertension MOTHER Review of Systems-General Review of Systems Constitutional: see HPI; No chills, No fever, No malaise; weakness EENTM: see HPI, no symptoms reported; No ear discharge, No ear pain Respiratory: see HPI; No cough; dyspnea on exertion, orthopnea, short of breath Cardiovascular: see HPI; No chest pain, No edema Gastrointestinal: no symptoms reported, see HPI; No abdominal pain, No nausea, No vomiting Genitourinary: no symptoms reported, see HPI; No discharge, No dysuria Musculoskeletal: no symptoms reported, see HPI; No back pain, No joint pain Skin: no symptoms reported, see HPI Psychiatric/Neurological: No Symptoms Reported, See HPI All Other Systems Reviewed Negative Unless Noted: Yes Reviewed Test Results Reviewed Test Results Lab Laboratory Tests Test 12/06/19 01:54 12/06/19 02:08 12/06/19 02:25 12/06/19 02:57 Range/Units White Blood Count 8.6 4.3-11.0 10^3/uL Red Blood Count 5.02 4.30-5.52 10^6/uL Hemoglobin 14.3 13.3-17.7 g/dL Hematocrit 46 40-54 % Mean Corpuscular Volume 92 80-99 fL Mean Corpuscular Hemoglobin 29 25-34 pg Mean Corpuscular Hemoglobin Concent 31 L 32-36 g/dL Red Cell Distribution Width 15.2 H 10.0-14.5 % Platelet Count 362 130-400 10^3/uL Mean Platelet Volume 9.8 9.0-12.2 fL Immature Granulocyte % (Auto) 1 % Neutrophils (%) (Auto) 81 H 42-75 % Lymphocytes (%) (Auto) 12 12-44 % Monocytes (%) (Auto) 5 0-12 % Eosinophils (%) (Auto) 1 0-10 % Basophils (%) (Auto) 0 0-10 % Neutrophils # (Auto) 7.0 1.8-7.8 10^3/uL Lymphocytes # (Auto) 1.0 1.0-4.0 10^3/uL Monocytes # (Auto) 0.4 0.0-1.0 10^3/uL Eosinophils # (Auto) 0.1 0.0-0.3 10^3/uL Basophils # (Auto) 0.0 0.0-0.1 10^3/uL Immature Granulocyte # (Auto) 0.0 0.0-0.1 10^3/uL Prothrombin Time 14.8 H 12.2-14.7 SEC INR Comment 1.1 0.8-1.4 Activated Partial Thromboplast Time 27 24-35 SEC Sodium Level 138 135-145 MMOL/L Potassium Level 4.3 3.6-5.0 MMOL/L Chloride Level 104 98-107 MMOL/L Carbon Dioxide Level 25 21-32 MMOL/L Anion Gap 9 5-14 MMOL/L Blood Urea Nitrogen 12 7-18 MG/DL Creatinine 1.15 0.60-1.30 MG/DL Estimat Glomerular Filtration Rate > 60 BUN/Creatinine Ratio 10 Glucose Level 128 H 70-105 MG/DL Calcium Level 8.4 L 8.5-10.1 MG/DL Corrected Calcium 8.7 8.5-10.1 MG/DL Magnesium Level 1.9 1.6-2.4 MG/DL Total Bilirubin 0.8 0.1-1.0 MG/DL Aspartate Amino Transf (AST/SGOT) 49 H 5-34 U/L Alanine Aminotransferase (ALT/SGPT) 116 H 0-55 U/L Alkaline Phosphatase 121 40-136 U/L Myoglobin 51.9 10.0-92.0 NG/ML Troponin I 0.132 H <0.028 NG/ML B-Type Natriuretic Peptide 3171.5 H <100.0 PG/ML Total Protein 6.7 6.4-8.2 GM/DL Albumin 3.6 3.2-4.5 GM/DL Lipase 29 8-78 U/L Serum Alcohol < 10 <10 MG/DL Blood Gas Puncture Site RIGHT RADIAL RIGHT RADIAL Blood Gas Patient Temperature 36.7 36.7 Arterial Blood pH 7.28 *L 7.38 7.37-7.43 Arterial Blood Partial Pressure CO2 63 H 46 H 35-45 MMHG Arterial Blood Partial Pressure O2 21 *L 39 *L 79-93 MMHG Arterial Blood HCO3 29 H 27 23-27 MMOL/L Arterial Blood Total CO2 30.4 28.1 21.0-31.0 MMOL/L Arterial Blood Oxygen Saturation 13 L 65 L 94-100 % Arterial Blood Base Excess 2.3 1.9 -2.5-2.5 MMOL/L Remy Test POSITIVE POSITIVE Blood Gas Ventilator Setting NO NO Blood Gas Inspired Oxygen 2 2 Urine Color YELLOW Urine Clarity SL CLOUDY Urine pH 6.5 5-9 Urine Specific [place] 1.020 1.016-1.022 Urine Protein 1+ H NEGATIVE Urine Glucose (UA) NEGATIVE NEGATIVE Urine Ketones NEGATIVE NEGATIVE Urine Nitrite NEGATIVE NEGATIVE Urine Bilirubin NEGATIVE NEGATIVE Urine Urobilinogen 1.0 < = 1.0 MG/DL Urine Leukocyte Esterase NEGATIVE NEGATIVE Urine RBC (Auto) NEGATIVE NEGATIVE Urine RBC NONE /HPF Urine WBC NONE /HPF Urine Squamous Epithelial Cells RARE /HPF Urine Crystals NONE /LPF Urine Bacteria NEGATIVE /HPF Urine Casts NONE /LPF Urine Mucus NEGATIVE /LPF Urine Culture Indicated NO Urine Opiates Screen NEGATIVE NEGATIVE Urine Oxycodone Screen NEGATIVE NEGATIVE Urine Methadone Screen NEGATIVE NEGATIVE Urine Propoxyphene Screen NEGATIVE NEGATIVE Urine Barbiturates Screen NEGATIVE NEGATIVE Ur Tricyclic Antidepressants Screen NEGATIVE NEGATIVE Urine Phencyclidine Screen NEGATIVE NEGATIVE Urine Amphetamines Screen NEGATIVE NEGATIVE Urine Methamphetamines Screen NEGATIVE NEGATIVE Urine Benzodiazepines Screen NEGATIVE NEGATIVE Urine Cocaine Screen NEGATIVE NEGATIVE Urine Cannabinoids Screen POSITIVE H NEGATIVE Physical Exam Physical Exam Vital Signs Vital Signs - First Documented 12/06/19 12/06/19 12/06/19 01:54 02:06 04:46 Temp 36.7 Pulse 121 Resp 22 B/P (MAP) 177/127 (144) Pulse Ox 99 O2 Delivery Nasal Cannula O2 Flow Rate 2.00 FiO2 21 Capillary Refill : Less Than 3 Seconds Height, Weight, BMI Height: '" Weight: lbs. oz. kg; 27.07 BMI Method: General Appearance: No Apparent Distress, WD/WN Eyes: Bilateral Eye Normal Inspection, Bilateral Eye PERRL, Bilateral Eye EOMI HEENT: PERRL/EOMI, TMs Normal, Normal ENT Inspection, Pharynx Normal, Moist Mucous Membranes Neck: Full Range of Motion, Normal Inspection, Non Tender, Supple, Carotid Bruit Respiratory: Chest Non Tender, Normal Breath Sounds, No Accessory Muscle Use, No Respiratory Distress Cardiovascular: Regular Rate, Rhythm, No Edema, No JVD, No Murmur, Normal Peripheral Pulses, Gallop/S3 Gastrointestinal: Normal Bowel Sounds, No Organomegaly, No Pulsatile Mass, Non Tender, Soft Back: Normal Inspection, No CVA Tenderness, No Vertebral Tenderness Extremity: Normal Capillary Refill, Normal Inspection, Normal Range of Motion, Non Tender, No Calf Tenderness, No Pedal Edema Neurologic/Psychiatric: Alert, Oriented x3, No Motor/Sensory Deficits, Normal Mood/Affect Skin: Normal Color, Warm/Dry Lymphatic: No Adenopathy A/P-Cardiology Admission Diagnosis Congestive heart failure, acute on chronic left ventricular systolic dysfunction, nonischemic cardiomyopathy Shortness of breath Assessment/Plan Congestive heart failure, acute left ventricular systolic dysfunction with ejection fraction 10 percent, unknown etiology, nonischemic cardiomyopathy, res ponded to diuretics. Feeling better. Continue to monitor Cardiac catheterization showed normal coronary with no significant obstructive disease, normal aortic arch and great vessels of the neck Shortness of breath, responded to diuretics. Continue to monitor History of illicit drug use. Educated on avoiding drugs. History of noncompliance, reported at this time that he has been compliant. Clinical Quality Measures DVT/VTE Risk/Contraindication: Risk Factor Score Per Nursin RFS Level Per Nursing on Admit: 4+=Very High FLORA MAGDALENO MD Dec 06, 2019 07:35
[2019-12-06] MEDS: CARVEDILOL 3.125 MG (COREG) TABLET PO SCH ×2 (08:22→20:57)
[2019-12-06] MEDS: ASPIRIN E.C. 81 MG (ECOTRIN) TAB PO SCH (08:22)
[2019-12-06] MEDS: LOSARTAN 25 MG (COZAAR) TAB PO SCH (08:22)
[2019-12-06] MEDS: PANTOPRAZOLE 40 MG (PROTONIX) TAB PO SCH (08:22)
[2019-12-06] MEDS: RT-ALBUTEROL/IPRATROPIUM 3 ML (DUONEB) VIAL INH SCH ×3 (10:00→19:52)
[2019-12-06] MEDS ORDERED: ASPI-1238 PO (11:45)
[2019-12-06] MEDS ORDERED: POTA10TA PO (11:45)
[2019-12-06] MEDS ORDERED: CARV3.12 PO (11:45)
[2019-12-06] MEDS ORDERED: FURO20TA4 PO (11:45)
[2019-12-06] MEDS ORDERED: ONDA8TAB13 PO (11:45)
[2019-12-06] MEDS ORDERED: LOSA25TA41 PO (11:45)
[2019-12-06] MEDS ORDERED: PANT40TA52 PO (11:45)
--- NOTE | 2019-12-06 11:45 | NUR ---
SPOKE WITH THE PT AND JUNE () AND WENT THRU THE EXT MED HISTORY TO COMPLETE THE MED REC POTASSIUM ER 10MEQ- DIRECTIONS SHOW 1 TAB DAILY, HOWEVER ACCORDING TO THE PTS SO HE BREAKS THEM IN HALF AND TAKES BID. PT ELLEN TAKING ANY OTC MEDICATIONS
--- NOTE | 2019-12-06 13:00 | NUR ---
REPORT RECEIVED FROM CORRY LUIS, PT ARRIVED TO FLOOR VIA WC. PT DENIES NEEDS AT THIS TIME, CALL LIGHT IN REACH, QUESTIONS ANSWERED, WILL CONTINUE TO MONITOR.
--- NOTE | 2019-12-06 13:43 | NUR ---
1255 REPORT GIVEN TO JULIEN LUIS PT TRANSFERRED TO ROOM 423 VIA ALL PERSONAL BELONGINGS SENT DOWN WITH PT.
--- NOTE | 2019-12-06 13:53 | NUR ---
CM/SS visited with patient for discharge planning. The patient reports that he is feeling much better today and is asking about going home and when he can discharge. Life Vest: The patient states that his family has paid $800 dollars today on the life vest and should be able to get it delivered after today. Substance use: The patient reports that he has not used Methamphetamines since prior to his last admission. He reports "it scared him". The patient does report to smoking Marijuana 2 days ago. The patient reports that he has applied for Social Security Disability and is awaiting the approval/denial. This cm/ss spoke to patient about [facility] and [facility] pharmacy. He verbalized understanding. CM/SS will continue to follow for discharge planning.
--- NOTE | 2019-12-06 14:03 | History & Physical-Hospitalist ---
History of Present Illness HPI/Chief Complaint Nuno Marie is a 39-year-old male with past medical history of heart failure with reduced ejection fraction, nonischemic cardiomyopathy, methamphetamine abuse, who presented with shortness of breath. He was hospitalized a few weeks ago and diagnosed with heart failure. He was supposed to get set up with a LifeVest but has not at this point. He denies any fevers. He denies any cough. He says he has not done any methamphetamine. Source: patient Exam Limitations: no limitations Date Seen 12/06/19 Time Seen by a Provider: 09:35 Attending Physician Kely Fritz DO PCP No,Local Physician Referring Physician Date of Admission Dec 06, 2019 at 03:26 Home Medications & Allergies Home Medications Reviewed patient Home Medication Reconciliation performed by pharmacy medication reconciliations automotive brake technician and/or nursing. Patients Allergies have been reviewed. Allergies Allergies Coded Allergies No Known Drug Allergies (Unverified10/05/19) Past Rdhenuo-Mqftph-Nmnxyp Hx Past Med/Social Hx: Reviewed Nursing Past Med/Soc Hx Patient Social History Alcohol Use: Denies Use Recreational Drug Use: Yes Drug of Choice: MARIJUANA Smoking Status: Former Smoker 2nd Hand Smoke Exposure: No Recent Foreign Travel: No Contact w/other who traveled: No Recent Hopitalizations: No Recent Infectious Disease Expo: No Immunizations Up To Date Tetanus Booster (TDap): Unknown Date of Pneumonia Vaccine: Dec 07, 2018 Seasonal Allergies Seasonal Allergies: Yes (USE INHALER) Past Medical History Surgeries: Cardiac Respiratory: Asthma Currently Using CPAP: No Currently Using BIPAP: No Cardiac: Cardiomyopathy, Coronary Artery Disease, Heart Attack, Hypertension Sexually Transmitted Disease: Yes (CHLAMYDIA; GONORRHEA 10/05/19) History of Blood Disorders: No Family History Asthma AUNT Hypertension MOTHER No Pertinent Family Hx HAS BEEN OUT OF SHELTER SINCE 2018 Review of Systems Constitutional: no symptoms reported EENTM: no symptoms reported Respiratory: short of breath Cardiovascular: no symptoms reported Gastrointestinal: no symptoms reported Genitourinary: no symptoms reported Musculoskeletal: no symptoms reported Skin: no symptoms reported Psychiatric/Neurological: No Symptoms Reported Physical Exam Physical Exam Vital Signs Vital Signs - First Documented 12/06/19 12/06/19 12/06/19 01:54 02:06 04:46 Temp 36.7 Pulse 121 Resp 22 B/P (MAP) 177/127 (144) Pulse Ox 99 O2 Delivery Nasal Cannula O2 Flow Rate 2.00 FiO2 21 Capillary Refill : Less Than 3 Seconds Height, Weight, BMI Height: '" Weight: lbs. oz. kg; 27.07 BMI Method: General Appearance: No Apparent Distress, WD/WN HEENT: PERRL/EOMI, Pharynx Normal Neck: Normal Inspection, Supple Respiratory: Lungs Clear, Normal Breath Sounds, No Respiratory Distress Cardiovascular: No Murmur, Tachycardia (regular rhythm) Gastrointestinal: Normal Bowel Sounds, Non Tender, Soft Extremity: Normal Inspection, Non Tender, No Pedal Edema Neurologic/Psychiatric: Alert, Oriented x3, No Motor/Sensory Deficits, Normal Mood/Affect Skin: Normal Color, Warm/Dry Results Results/Procedures Labs Laboratory Tests 12/06/19 01:54 Patient resulted labs reviewed. Imaging: Reviewed Imaging Report Assessment/Plan Admission Diagnosis acute on chronic heart failure with reduced ejection fraction Admission Status: Inpatient Order (span 2 midnights) Reason for Inpatient Admission: CHF requiring IV diuresis Assessment and Plan Acute on chronic heart failure with reduced ejection fraction Nonischemic cardiomyopathy Methamphetamine abuse Marijuana abuse Elevated troponin HTN BNP elevated Troponin mildly elevated, stable Urine drug screen positive for marijuana chest x-ray with cardiomegaly, pulmonary vascular congestion, and diffuse interstitial pulmonary edema Cardiology consulted, appreciate assistance Previous echocardiogram revealed ejection fraction 10 percent monitor on telemetry Started on IV diuresis Consult social work, appreciate assistance DVT prophylaxis: Lovenox Diagnosis/Problems Diagnosis/Problems (1) Acute on chronic heart failure Status: Acute Qualifiers: Heart failure type: systolic Qualified Codes: I50.23 - Acute on chronic systolic (congestive) heart failure (2) Acute respiratory failure with hypoxemia Status: Acute (3) Elevated troponin Status: Acute (4) Elevated liver enzymes Status: Acute (5) HTN (hypertension) Status: Acute (6) Methamphetamine abuse Status: Acute Clinical Quality Measures DVT/VTE Risk/Contraindication: Risk Factor Score Per Nursin RFS Level Per Nursing on Admit: 4+=Very High ELLEN FITZPATRICK MD Dec 06, 2019 14:03
[2019-12-06] MEDS ORDERED: ENOXAPARIN 40 MG/0.4 ML (LOVENOX) SYR SC SCH (14:15)
[2019-12-07 00:10] VITALS: BP 136/90
[2019-12-07] MEDS: RT-ALBUTEROL/IPRATROPIUM 3 ML (DUONEB) VIAL INH SCH ×2 (02:39→10:52)
[2019-12-07 04:21] VITALS: BP 125/83
[2019-12-07] MEDS: FUROSEMIDE 40 MG/4 ML INJ (LASIX) IVP SCH (06:22)
[2019-12-07] MEDS ORDERED: KCL 10 MEQ TAB (MICRO K) PO SCH (07:00)
[2019-12-07 08:00] VITALS: BP 138/97
[2019-12-07] MEDS: CARVEDILOL 3.125 MG (COREG) TABLET PO SCH (08:29)
[2019-12-07] MEDS: PANTOPRAZOLE 40 MG (PROTONIX) TAB PO SCH (08:29)
[2019-12-07] MEDS: ASPIRIN E.C. 81 MG (ECOTRIN) TAB PO SCH (08:29)
[2019-12-07] MEDS: LOSARTAN 25 MG (COZAAR) TAB PO SCH (08:29)
--- NOTE | 2019-12-07 08:53 | Cardiology Progress Note ---
Subjective Date Seen by Provider: Dec 07, 2019 Time Seen by Provider: 08:52 Subjective/Events-last exam Patient is laying in bed, reports dyspnea significantly improved. Denies any chest pain. Review of Systems General: No Chills, No Night Sweats, No Fatigue, No Malaise, No Appetite, No Ot her HEENT: No Head Aches, No Visual Changes, No Eye Pain, No Ear Pain, No Dysp hasia, No Sinus Congestion, No Post Nasal Drip, No Sore Throat, No Other Pulmonary: No Dyspnea, No Cough, No Pleuritic Chest Pain, No Other Cardiovascular: No: Chest Pain, Palpitations, Orthopnea, Paroxysmal Noc. Dyspnea, Edema, Lt Headedness, Other Objective-Cardiology Exam Last Set of Vital Signs Vital Signs 12/06/19 12/07/19 12/07/19 12/07/19 04:46 08:00 09:00 10:52 Temp 36.6 Pulse 98 Resp 18 B/P (MAP) 138/97 (111) Pulse Ox 95 O2 Delivery Room Air O2 Flow Rate 0.00 FiO2 21 Capillary Refill : Less Than 3 SecondsLess Than 3 Seconds I&O Intake and Output 12/07/19 00:00 Intake Total 2040 ml Output Total 3825 ml Balance -1785 ml Intake Oral 2040 ml Output Urine Total 3825 ml # Voids 3 Daily Weight Change No General: Alert, Oriented X3, Cooperative HEENT: Atraumatic, PERRLA Neck: Supple, No JVD, No Thyromegaly Lungs: Clear to Auscultation, Normal Air Movement Heart: Regular Rate, Normal S1, Normal S2, No Murmurs Abdomen: Normal Bowel Sounds, Soft, No Tenderness, No Hepatosplenomegaly, No Masses Extremities: No Clubbing, No Cyanosis, No Edema, Normal Pulses, No Tenderness/Swelling Skin: No Rashes, No Breakdown, No Significant Lesion Neuro: Normal Gait, Normal Speech, Strength at 5/5 X4 Ext, Normal Tone, Sensation Intact Psych/Mental Status: Mental Status NL, Mood NL Results Lab Laboratory Tests 12/07/19 08:27 A/P-Cardiology Admission Diagnosis Congestive heart failure, acute on chronic left ventricular systolic dysfunction, nonischemic cardiomyopathy Shortness of breath Assessment/Plan Congestive heart failure, acute left ventricular systolic dysfunction with ejection fraction 10 percent, unknown etiology, nonischemic cardiomyopathy, responded to diuretics. Feeling better. Continue to monitor, being fitting for Life Vest this morning. Cardiac catheterization showed normal coronary with no significant obstructive disease, normal aortic arch and great vessels of the neck Shortness of breath, responded to diuretics. Continue to monitor History of illicit drug use. Educated on avoiding drugs. History of noncompliance, reported at this time that he has been compliant. Patient was seen and evaluated with Briseyda, examination performed, management plan was discussed, agree with the current scribed note, I made few changes to the note using Italic font Patient is laying down in bed, feeling better, breathing better, no new complaint Okay for discharge from cardiology standpoint Increase Lasix to 40 mg daily as an outpatient and I instructed him to take additional 40 mg if he started to have shortness of breath otherwise continue same home medication Clinical Quality Measures DVT/VTE Risk/Contraindication: Risk Factor Score Per Nursin RFS Level Per Nursing on Admit: 4+=Very High BRISEYDA BRADLEY Dec 07, 2019 8:53 am FLORA MAGDALENO MD Dec 07, 2019 11:22 am
[2019-12-07 08:56] LABS: ALANINE AMINOTRANSFERASE 80 U/L (0-55); ALBUMIN 3.2 GM/DL (3.2-4.5); ALKALINE PHOSPHATASE 94 U/L (40-136); BILIRUBIN,TOTAL 0.9 MG/DL (0.1-1.0); BUN/CREATININE RATIO 9; CALCIUM 8.2 MG/DL (8.5-10.1); CARBON DIOXIDE 23 MMOL/L (21-32); CHLORIDE 101 MMOL/L (98-107); CREATININE SERUM 1.24 MG/DL (0.60-1.30); GFR ESTIMATED > 60; GLUCOSE 153 MG/DL (70-105); POTASSIUM 3.4 MMOL/L (3.6-5.0); SODIUM 137 MMOL/L (135-145); TOTAL PROTEIN 6.1 GM/DL (6.4-8.2)
--- NOTE | 2019-12-07 09:56 | NUR ---
SAMMY/MARYCARMEN follow up. SAMMY/MARYCARMEN was contacted by Kylah ( ; EXT: [id number]) at [facility] to discuss case. This sw asked if patient's family paid an amount yesterday on life vest as stated by patient during interview. Kylah states that they have not paid any amount and she is still needing information from patient before they can process it. Kylah spoke with patient this a.m. to inform him of what was still needed for supplemental information. The patient's significant other June will work with Kylah to secure the needed documents. SAMMY/MARYCARMEN attempted to contact June ([phone]). No answer and voice mail was not set up. Will attempt again later. SAMMY/MARYCARMEN will continue to follow for discharge planning. Addendum: 12/07/19 at 1209 by CARTER SAMS Update: NEERAJ spoke with June the patient's significant other. She states that she was able to email the needed documents to Kylah. SAMMY/SS advised June to call Kylah to notify that documents have been sent. She verbalized understanding. She will be picking up patient this afternoon and is bringing clothes.
[2019-12-07] MEDS ORDERED: KCL 20 MEQ TAB (K-DUR) PO NR (10:45)
--- NOTE | 2019-12-07 11:51 | NUR ---
PHARMACY CALLED FOR FLU VAC
[2019-12-07 12:00] VITALS: BP 123/77
[2019-12-07 14:10] VITALS: BP 123/77
--- NOTE | 2019-12-07 14:10 | NUR ---
CHERRIE CHUNG demonstrates understanding of discharge instructions and accurately returns instructions upon questioning. Copy of Post-Discharge Instructions and Medication Discharge Instructions given to pt. CHERRIE CHUNG is able to manage continuing needs after discharge. Patients belongings returned to pt. Skin dry and intact; no breakdown noted. Patient discharged from [facility]- on 12/07/19 at 1410. CHERRIE CHUNG left floor ambulating, accompanied by staff.
--- NOTE | 2019-12-07 19:25 | Discharge Summary ---
Discharge Summary Hospital Course Was the Problem List Reviewed?: Yes Problems/Dx: (1) Acute on chronic heart failure Status: Acute Qualifiers: Qualified Codes: I50.23 - Acute on chronic systolic (congestive) heart failure (2) Acute respiratory failure with hypoxemia Status: Acute (3) Elevated troponin Status: Acute (4) Elevated liver enzymes Status: Acute (5) HTN (hypertension) Status: Acute (6) Methamphetamine abuse Status: Acute Hospital Course Date of Admission: Dec 06, 2019 at 03:26 Admission Diagnosis : acute on chronic heart failure with reduced ejection fraction Family Physician/Provider: Daniela,Local Physician Date of Discharge: 12/07/19 Discharge Diagnosis: acute on chronic heart failure with reduced ejection fraction Hospital Course: Nuno Marie is a 39-year-old male with past medical history of heart failure with reduced ejection fraction, nonischemic cardiomyopathy, methamphetamine abuse, who presented with shortness of breath and was admitted with acute on chronic heart failure exacerbation. He was treated with IV diuresis and responded well. He has a severely reduced ejection fraction and is in the process of obtaining a LifeVest. Cardiology was consulted and assisted with his care. He was not requiring any supplemental oxygen at the time of discharge. He was discharged in stable condition. He will increase his Lasix dose per cardiology. He is in the process of obtaining his LifeVest, and although he is not yet received it, cardiology believes that we are safe to discharge. He should establish with a primary care physician at [facility]. Labs and Pending Lab Test: Laboratory Tests 12/07/19 08:27: Sodium Level 137, Potassium Level 3.4L, Chloride Level 101, Carbon Dioxide Level 23, Anion Gap 13, Blood Urea Nitrogen 11, Creatinine 1.24, Estimat Glomerular Filtration Rate > 60, BUN/Creatinine Ratio 9, Glucose Level 153H, Calcium Level 8.2L, Corrected Calcium 8.8, Total Bilirubin 0.9, Aspartate Amino Transf (AST/SGOT) 42H, Alanine Aminotransferase (ALT/SGPT) 80H, Alkaline Phosphatase 94, Total Protein 6.1L, Albumin 3.2 Microbiology 12/06/19 MRSA Screen - Final, Complete MRSA not isolated Home Meds Active Reported K-Tab ER (Potassium Chloride) 10 Meq Tablet.er 5 Meq PO BID TAKES OF A 10MEQ Coreg (Carvedilol) 3.125 Mg Tablet 3.125 Mg PO BID Losartan Potassium 25 Mg Tablet 25 Mg PO DAILY Aspirin EC (Aspirin) 81 Mg Tablet. 81 Mg PO DAILY Furosemide 20 Mg Tablet 20 Mg PO DAILY Ondansetron Odt (Ondansetron) 8 Mg Tab.rapdis 8 Mg PO Q4H PRN Pantoprazole Sodium 40 Mg Tablet.dr 40 Mg PO DAILY Assessment/Pt Instructions take medications as prescribed. Follow up with cardiology. Establish care with a primary care physician at [facility]. Discharge Planning: <30 minutes discharge planning Discharge Instructions Discharge Diet: Low Sodium Diet Activity as Tolerated: Yes Consultations cardiology Discharge Physical Examination Vital Signs Vital Signs Date Time Temp Pulse Resp B/P (MAP) Pulse Ox O2 Delivery O2 Flow Rate FiO2 12/07/19 14:10 36.1 95 18 123/77 96 Room Air 0.00 12/06/19 04:46 21 General Appearance: No Apparent Distress, WD/WN Respiratory: Lungs Clear, Normal Breath Sounds, No Respiratory Distress Cardiovascular: Regular Rate, Rhythm, No Edema, No Murmur Gastrointestinal: Normal Bowel Sounds, Non Tender, Soft Extremity: Normal Inspection, Non Tender, No Pedal Edema Skin: Normal Color, Warm/Dry Neurologic/Psychiatric: Alert, Oriented x3, No Motor/Sensory Deficits, Normal Mood/Affect Allergies: Coded Allergies: No Known Drug Allergies (Unverified , 10/05/19) Copy Copies To 1: [facility] [place] Discharge Summary Date of Admission Dec 06, 2019 at 03:26 Date of Discharge Dec 07, 2019 at 14:10 Discharge Date: Dec 07, 2019 Discharge Time: 14:10 Admission Diagnosis acute on chronic heart failure with reduced ejection fraction Discharge Diagnosis Acute on chronic heart failure with reduced ejection fraction (1) Acute on chronic heart failure Status: Acute Qualifiers: Qualified Codes: I50.23 - Acute on chronic systolic (congestive) heart failure (2) Acute respiratory failure with hypoxemia Status: Acute (3) Elevated troponin Status: Acute (4) Elevated liver enzymes Status: Acute (5) HTN (hypertension) Status: Acute (6) Methamphetamine abuse Status: Acute Clinical Quality Measures DVT/VTE Risk/Contraindication: Risk Factor Score Per Nursin RFS Level Per Nursing on Admit: 4+=Very High ELLEN FITZPATRICK MD Dec 07, 2019 19:25
== END 2019-12-07 14:10 | disposition home or self-care (01) | DRG 280 ==
LOC: EDUNIT# 01:45 → ER 01:47 → ICU 03:26 → 4TH 12:57
PROVIDERS: ADMIT Internal Medicine; ATTEND Internal Medicine
DX: I11.0 Hypertensive heart disease with heart failure (principal); J96.01 Acute respiratory failure with hypoxia; I21.4 Non-ST elevation (NSTEMI) myocardial infarction; A54.9 Gonococcal infection, unspecified; I50.23 Acute on chronic systolic (congestive) heart failure; I42.8 Other cardiomyopathies; R10.13 Epigastric pain; J45.909 Unspecified asthma, uncomplicated; I25.10 Atherosclerotic heart disease of native coronary artery without angina pectoris; A56.8 Sexually transmitted chlamydial infection of other sites; I44.7 Left bundle-branch block, unspecified; F15.10 Other stimulant abuse, uncomplicated; F12.90 Cannabis use, unspecified, uncomplicated; Z91.19 Patient's noncompliance with other medical treatment and regimen; Z87.891 Personal history of nicotine dependence
CPT/HCPCS: 36415; 36600; 71045; 80053; 80306; 80320; 81000; 82805; 83690; 83735; 83874; 83880; 84484; 85025; 85610; 85730; 87081; 90686; 93005; 93041; 94640; 99291

== ENCOUNTER 2020-01-20 21:42 | Emergency (ER) | payer SELFPAY ==
[~2020-01-20 21:42] MED LIST changes: +CARV3.12 PO; +PANT40TA52 PO; +POTA10TA PO
[2020-01-20 21:54] VITALS: BP 115/81
--- NOTE | 2020-01-20 22:14 | NUR ---
Pt refused COVID-19 et Influenza swab at this time. Provider notified.
--- NOTE | 2020-01-20 22:17 | ED Respiratory ---
General Chief Complaint: Respiratory Problems Stated Complaint: SOB/COUGH Source: patient (VERY LIMITED HISTORIAN ABOUT PAST MEDICAL HISTORY) History of Present Illness Date Seen by Provider: Jan 20, 2020 Time Seen by Provider: 21:58 Initial Comments PT ARRIVES VIA POV C/O SHORTNESS OF BREATH ALL DAY TODAY STATES "IT FEELS LIKE MY LUNGS ARE FILLING UP" NO CHEST PAIN NO FEVER NO COUGH NO SWELLING IN LEGS/ FEET OR PAIN IN CALVES PT HAS SEVERE CARDIOMYOPATHY WITH EF OF 10% AND IS SUPPOSED TO BE WEARING A LIFE VEST, BUT HAS NOT WORN IT FOR AT LEAST A WEEK--"DIDN'T FEEL LIKE IT" PT HAS HTN, WELL CHF PT HAS 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 STATES HE HAS TAKEN ALL OF HIS PRESCRIBED MEDICATION TODAY STATES HE WENT TO [facility] YESTERDAY TO GET REFILLS ON HIS MEDICATIONS. IS UNCLEAR IF HE SIMPLY PICKED UP RX'S FROM PHARMACY OR WHETHER HE ACTUALLY HAD A VISIT WITH A PROVIDER. PT WITH 8 VISITS SINCE HIS FIRST VISIT HERE 09/26/19--ALL FOR SAME/SIMILAR COMPLAINTS. PT HAS LEFT AMA MANY TIMES--SEE OLD CHARTS FOR DETAILS. PCP: [facility] Allergies and Home Medications Allergies Coded Allergies: No Known Drug Allergies (Unverified , 10/05/19) Home Medications Aspirin 81 Mg Tablet.dr, 81 MG PO DAILY, (Reported) Carvedilol 3.125 Mg Tablet, 3.125 MG PO BID, (Reported) Furosemide 20 Mg Tablet, 20 MG PO DAILY, (Reported) Losartan Potassium 25 Mg Tablet, 25 MG PO DAILY, (Reported) Ondansetron 8 Mg Tab.rapdis, 8 MG PO Q4H PRN for NAUSEA/VOMITING-1ST LINE, (Reported) Pantoprazole Sodium 40 Mg Tablet.dr, 40 MG PO DAILY, (Reported) Potassium Chloride 10 Meq Tablet.er, 5 MEQ PO BID, (Reported) TAKES OF A 10MEQ Patient Home Medication List Home Medication List Reviewed: Yes Review of Systems Review of Systems Constitutional: no symptoms reported; No chills, No diaphoresis, No dizziness, No fever EENTM: no symptoms reported Respiratory: see HPI; No cough; dyspnea on exertion, orthopnea, short of breath, wheezing Cardiovascular: see HPI; No chest pain, No edema, No palpitations, No syncope Gastrointestinal: no symptoms reported; No nausea, No vomiting Genitourinary: no symptoms reported Musculoskeletal: no symptoms reported Skin: no symptoms reported Psychiatric/Neurological: Anxiety; Denies Headache, Denies Numbness, Denies Paresthesia, Denies Weakness Hematologic/Lymphatic: No Symptoms Reported Past [id number]-[id number] Hx Past Med/Social Hx: Reviewed and Corrections made Patient Social History Alcohol Use: Rarely Uses Number of Drinks Today: 0 Recreational Drug Use: Yes (THC, COCAINE, METH, ") Drug of Choice: MARIJUANA Smoking Status: Never a Smoker 2nd Hand Smoke Exposure: No Recent Foreign Travel: No Contact w/Someone Who Travel: No Recent Hopitalizations: No Immunizations Up To Date Tetanus Booster (TDap): Unknown Date of Pneumonia Vaccine: Dec 07, 2018 Seasonal Allergies Seasonal Allergies: Yes (USE INHALER) Past Medical History Surgeries: Yes (CARDIAC CATH 11/2019--NO INTERVENTION) Cardiac Respiratory: Yes Asthma Currently Using CPAP: No Currently Using BIPAP: No Cardiac: Yes (CHF--NEEDS LIFEVEST/REFUSES TO WEAR; NSTEMI; EF 10%;LBBB ) Cardiomyopathy, Coronary Artery Disease, Heart Attack, Hypertension Neurological: No Sexually Transmitted Disease: Yes (CHLAMYDIA; GONORRHEA 10/05/19) Genitourinary: No Gastrointestinal: No Musculoskeletal: No Endocrine: No HEENT: No Cancer: No Psychosocial: Yes (SUBSTANCE ABUSE) Integumentary: No Blood Disorders: No Family Medical History Asthma AUNT Hypertension MOTHER No Pertinent Family Hx HAS BEEN OUT OF HALFWAY SINCE 2018 VERY NON-COMPLIANT IN ALL ASPECTS OF CARE Physical Exam Vital Signs - First Documented 01/20/20 21:54 Temp 36.4 Pulse 113 Resp 20 B/P (MAP) 115/81 (92) Pulse Ox 97 O2 Delivery Room Air Capillary Refill : Height: '" Weight: lbs. oz. kg; 27.07 BMI Method: General Appearance: other (MODERATELY DYSPNEIC ON ARRIVAL, ABLE TO TALK IN SHORT SENTENCES, ANXIOUS. 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, no motor/sensory deficits, alert, oriented x 3 Skin: normal color (PT IS BLACK), warm/dry Progress/Results/Core Measures Suspected Sepsis SIRS Temperature: Pulse: Respiratory Rate: Laboratory Tests 01/20/20 22:10: White Blood Count 7.0 Blood Pressure / Mean: Laboratory Tests 01/20/20 22:10: Creatinine 1.21, INR Comment 1.1, Platelet Count 262, Total Bilirubin 1.0 Results/Orders Lab Results Laboratory Tests Test 01/20/20 22:10 01/20/20 23:40 Range/Units White Blood Count 7.0 4.3-11.0 10^3/uL Red Blood Count 4.92 4.30-5.52 10^6/uL Hemoglobin 13.7 13.3-17.7 g/dL Hematocrit 42 40-54 % Mean Corpuscular Volume 86 80-99 fL Mean Corpuscular Hemoglobin 28 25-34 pg Mean Corpuscular Hemoglobin Concent 32 32-36 g/dL Red Cell Distribution Width 15.3 H 10.0-14.5 % Platelet Count 262 130-400 10^3/uL Mean Platelet Volume 10.2 9.0-12.2 fL Immature Granulocyte % (Auto) 0 % Neutrophils (%) (Auto) 71 42-75 % Lymphocytes (%) (Auto) 22 12-44 % Monocytes (%) (Auto) 4 0-12 % Eosinophils (%) (Auto) 3 0-10 % Basophils (%) (Auto) 0 0-10 % Neutrophils # (Auto) 4.9 1.8-7.8 10^3/uL Lymphocytes # (Auto) 1.5 1.0-4.0 10^3/uL Monocytes # (Auto) 0.3 0.0-1.0 10^3/uL Eosinophils # (Auto) 0.2 0.0-0.3 10^3/uL Basophils # (Auto) 0.0 0.0-0.1 10^3/uL Immature Granulocyte # (Auto) 0.0 0.0-0.1 10^3/uL Erythrocyte Sedimentation Rate 10 0-15 MM/HR Prothrombin Time 14.7 12.2-14.7 SEC INR Comment 1.1 0.8-1.4 Activated Partial Thromboplast Time 29 24-35 SEC D-Dimer 1.77 H 0.00-0.49 UG/ML Sodium Level 135 135-145 MMOL/L Potassium Level 3.9 3.6-5.0 MMOL/L Chloride Level 100 98-107 MMOL/L Carbon Dioxide Level 24 21-32 MMOL/L Anion Gap 11 5-14 MMOL/L Blood Urea Nitrogen 13 7-18 MG/DL Creatinine 1.21 0.60-1.30 MG/DL Estimat Glomerular Filtration Rate > 60 BUN/Creatinine Ratio 11 Glucose Level 124 H 70-105 MG/DL Calcium Level 8.8 8.5-10.1 MG/DL Corrected Calcium 9.3 8.5-10.1 MG/DL Magnesium Level 1.9 1.6-2.4 MG/DL Total Bilirubin 1.0 0.1-1.0 MG/DL Aspartate Amino Transf (AST/SGOT) 43 H 5-34 U/L Alanine Aminotransferase (ALT/SGPT) 36 0-55 U/L Alkaline Phosphatase 108 40-136 U/L Total Creatine Kinase 132 30-200 U/L Creatine Kinase MB 2.9 <6.6 NG/ML Myoglobin 40.4 10.0-92.0 NG/ML Troponin I < 0.028 <0.028 NG/ML C-Reactive Protein High Sensitivity 4.33 H 0.00-0.50 MG/DL B-Type Natriuretic Peptide 3114.7 H <100.0 PG/ML Total Protein 7.1 6.4-8.2 GM/DL Albumin 3.4 3.2-4.5 GM/DL Procalcitonin 0.10 H <0.10 NG/ML Urine Color YELLOW Urine Clarity CLEAR Urine pH 7.5 5-9 Urine Specific [place] 1.015 L 1.016-1.022 Urine Protein NEGATIVE NEGATIVE Urine Glucose (UA) NEGATIVE NEGATIVE Urine Ketones NEGATIVE NEGATIVE Urine Nitrite NEGATIVE NEGATIVE Urine Bilirubin NEGATIVE NEGATIVE Urine Urobilinogen 0.2 < = 1.0 MG/DL Urine Leukocyte Esterase NEGATIVE NEGATIVE Urine RBC (Auto) NEGATIVE NEGATIVE Urine RBC NONE /HPF Urine WBC NONE /HPF Urine Squamous Epithelial Cells RARE /HPF Urine Crystals NONE /LPF Urine Bacteria NEGATIVE /HPF Urine Casts NONE /LPF Urine Mucus NEGATIVE /LPF Urine Culture Indicated NO Urine Opiates Screen NEGATIVE NEGATIVE Urine Oxycodone Screen NEGATIVE NEGATIVE Urine Methadone Screen NEGATIVE NEGATIVE Urine Propoxyphene Screen NEGATIVE NEGATIVE Urine Barbiturates Screen NEGATIVE NEGATIVE Ur Tricyclic Antidepressants Screen NEGATIVE NEGATIVE Urine Phencyclidine Screen NEGATIVE NEGATIVE Urine Amphetamines Screen POSITIVE H NEGATIVE Urine Methamphetamines Screen NEGATIVE NEGATIVE Urine Benzodiazepines Screen NEGATIVE NEGATIVE Urine Cocaine Screen NEGATIVE NEGATIVE Urine Cannabinoids Screen NEGATIVE NEGATIVE My Orders Orders - VALERIE BROWN DO Ed Iv/Invasive Line Start (01/20/20 22:14) Ekg Tracing (01/20/20 22:14) Monitor-Rhythm Ecg Trace Only (01/20/20 22:14) Chest 1 View, Ap/Pa Only (01/20/20 22:14) BNP (01/20/20 22:14) Cbc With Automated Diff (01/20/20 22:14) Comprehensive Metabolic Panel (01/20/20 22:14) Creatine Kinase (01/20/20 22:14) Creatine Kinase Mb (01/20/20 22:14) Hs C Reactive Protein (01/20/20 22:14) Fibrin Degradation Products (01/20/20 22:14) Drug Screen Stat (Urine) (01/20/20 22:14) Magnesium (01/20/20 22:14) Procalcitonin (Pct) (01/20/20 22:14) Protime With Inr (01/20/20 22:14) Partial Thromboplastin Time (01/20/20 22:14) Ua Culture If Indicated (01/20/20 22:14) Erythrocyte Sedimentation Rate (01/20/20 22:14) Myoglobin Serum (01/20/20 22:14) Troponin I (01/20/20 22:14) Albuterol/Ipratropium Inhaler (Combivent (01/20/20 22:30) Rt Request For Service (01/20/20 22:23) Fluticasone/Salmeterol 115/21 (Advair Hf (01/21/20 08:00) Dexamethasone Injection (Decadron Injec (01/20/20 22:30) Furosemide Injection (Lasix Injection) (01/20/20 22:30) Fluticasone/Salmeterol 115/21 (Advair Hf (01/20/20 22:28) Ct Angio Chest W (01/20/20 23:02) Nitroglycerin Ointment (Nitrobid Ointme (01/20/20 23:15) Iohexol Injection (Omnipaque 350 Mg/Ml 1 (01/20/20 23:45) Ns (Ivpb) (Sodium Chloride 0.9% Ivpb Bag (01/20/20 23:45) Received Contrast (Hold Metformin- Contr (01/20/20 23:45) Medications Given in ED Current Medications Medications Dose Ordered Sig/Nelly Route Start Time Stop Time Status Last Admin Dose Admin Albuterol/ Ipratropium 1 PUFF ONCE ONCE IH 01/20/20 22:30 01/20/20 22:31 DC 01/20/20 22:33 4 GM Dexamethasone Sodium Phosphate 6 mg ONCE ONCE IV 01/20/20 22:30 01/20/20 22:31 DC 01/20/20 22:37 6 MG Furosemide 80 mg ONCE ONCE IVP 01/20/20 22:30 01/20/20 22:31 DC 01/20/20 22:40 80 MG Iohexol 100 ml ONCE ONCE IV 01/20/20 23:45 01/20/20 23:53 DC 01/20/20 23:43 100 ML Nitroglycerin 1 inch ONCE ONCE TOP 01/20/20 23:15 01/20/20 23:16 DC 01/20/20 23:20 1 INCH Sodium Chloride 100 ml ONCE ONCE IV 01/20/20 23:45 01/20/20 23:53 DC 01/20/20 23:43 80 ML Vital Signs/I&O 01/20/20 21:54 Temp 36.4 Pulse 113 Resp 20 B/P (MAP) 115/81 (92) Pulse Ox 97 O2 Delivery Room Air Capillary Refill : Progress Note : Progress Note PLACED IN ISOLATION ROOM PPE WORN AT ALL TIMES GIVEN LASIX AND NITROPASTE FOR CHF, WELL ELEVATED BLOOD PRESSURE, WITH GOOD DIURESIS--APPROXIMATELY 5000 ML URINE OUTPUT. ALSO GAVE COMBIVENT AND ADVAIR INHALER TREATMENTS PT WITH MUCH IMPROVEMENT IN DYSPNEA HEART RATE DOWN O2 SATS REMAIN IN UPPER 90'S ON ROOM AIR NO DETERIORATION IN PT'S CONDITION DURING ER STAY PT ON CELL PHONE/SPEAKER PHONE THROUGHOUT ER STAY PT INITIALLY ADAMANTLY REFUSED ANY NASAL SWABS 0035--PT IS AGREEABLE TO ADMIT AND IS NOW AGREEABLE TO NASAL SWABS FOR COVID AND FLU 0219--PT NOW WITH ESCALATING BEHAVIOR, CURSING, YELLING AT STAFF, NOW REFUSED NASAL SWABS AND NOW STATES HE WANTS TO LEAVE AND IS SIGNING OUT AMA. ECG Initial ECG Impression Date: Jan 21, 2020 Initial ECG Impression Time: 22:02 Initial ECG Rate: 112 Initial ECG Rhythm: S.Tach (LBBB) Initial ECG Comparisson: Unchanged Diagnostic Imaging Comments CXR--CARDIOMEGALY WITH CHF, PENDING RADIOLOGIST REVIEW CT CHEST ANGIOGRAM--NO P.E.; PERSISTENT PATCHY BILATERAL GROUND GLASS OPACITIES AND LLL RETICULONODULAR DENSITIES CONCERNING FOR INFECTIOUS OR INFLAMMATORY PROCESS, MODERATE BILATERAL PLEURAL EFFUSIONS, MILD BILATERAL PERIBRONCHIAL THICKENING. STABLE CARDIOMEGALY PER [facility] VIA FAX AT [phone] Reviewed: Reviewed by In Departure Communication (Admissions) 004--SPOKE WITH DR. ELI, HOSPITALIST FOR [facility]. ACCEPTS PT FOR ADMIT 0043--SPOKE WITH DR. MAGDALENO, ENDORSEMENT CLERK, NO ADDITIONAL RECOMMENDATIONS AT THIS TIME. Impression Primary Impression: Acute on chronic heart failure Additional Impressions: Non-compliance Uncontrolled hypertension SEVERE CARDIOMYOPATHY Illicit drug use Person under investigation for COVID-19 Pneumonia History of asthma Left against medical advice Disposition: 07 AGAINST MEDICAL ADVICE Condition: Against Medical Advice Departure-Patient Inst. Referrals: NO,LOCAL PHYSICIAN (PCP/Family) Primary Care Physician VALERIE BROWN DO Jan 20, 2020 22:17
[2020-01-20 22:20] LABS: BASOPHILS % (AUTO) 0 % (0-10); EOSINOPHILS # (AUTO) 0.2 10^3/uL (0.0-0.3); EOSINOPHILS % (AUTO) 3 % (0-10); HEMATOCRIT 42 % (40-54); HEMOGLOBIN 13.7 g/dL (13.3-17.7); LYMPHOCYTES # (AUTO) 1.5 10^3/uL (1.0-4.0); LYMPHOCYTES % (AUTO) 22 % (12-44); MEAN CORPUSCULAR HEMOGLOBIN 28 pg (25-34); MEAN CORPUSCULAR HGB CONC 32 g/dL (32-36); MEAN CORPUSCULAR VOLUME 86 fL (80-99); MEAN PLATELET VOLUME 10.2 fL (9.0-12.2); MONOCYTES # (AUTO) 0.3 10^3/uL (0.0-1.0); MONOCYTES % (AUTO) 4 % (0-12); NEUTROPHILS # (AUTO) 4.9 10^3/uL (1.8-7.8); NEUTROPHILS % (AUTO) 71 % (42-75); PLATELET COUNT 262 10^3/uL (130-400)
[2020-01-20] MEDS ORDERED: ADVAIR HFA 115/21 MCG INHALER 8 GM IH ONE (22:28)
[2020-01-20] MEDS ORDERED: ALBUTEROL/IPRATROP (COMBIVENT RESPIMAT) 4 GM INHALER IH ONE (22:30)
[2020-01-20] MEDS ORDERED: FUROSEMIDE 40 MG/4 ML INJ (LASIX) IVP ONE (22:30)
[2020-01-20 22:35] LABS: FIBRIN DEGRADATION PRODUCTS 1.77 UG/ML (0.00-0.49); INR 1.1 (0.8-1.4); PROTHROMBIN TIME PATIENT 14.7 SEC (12.2-14.7)
[2020-01-20 22:37] LABS: ERYTHROCYTE SEDIMENTATION RATE 10 MM/HR (0-15)
[2020-01-20 22:41] LABS: ALANINE AMINOTRANSFERASE 36 U/L (0-55); ALBUMIN 3.4 GM/DL (3.2-4.5); ALKALINE PHOSPHATASE 108 U/L (40-136); BUN/CREATININE RATIO 11; CALCIUM 8.8 MG/DL (8.5-10.1); CARBON DIOXIDE 24 MMOL/L (21-32); CHLORIDE 100 MMOL/L (98-107); CREATINE KINASE 132 U/L (30-200); CREATININE SERUM 1.21 MG/DL (0.60-1.30); GFR ESTIMATED > 60; GLUCOSE 124 MG/DL (70-105); MAGNESIUM 1.9 MG/DL (1.6-2.4); POTASSIUM 3.9 MMOL/L (3.6-5.0); SODIUM 135 MMOL/L (135-145); TOTAL PROTEIN 7.1 GM/DL (6.4-8.2)
[2020-01-20 23:01] LABS: CREATINE KINASE MB 2.9 NG/ML (<6.6)
[2020-01-20] MEDS ORDERED: NITROGLYCERIN 2% OINT 1 GM UNIT DOSE PACKET TOP ONE (23:15)
[2020-01-20] MEDS ORDERED: IOHEXOL 350 MG/ML 100 ML (OMNIPAQUE 350) VIAL IV ONE (23:45)
[2020-01-20] MEDS ORDERED: NS 100 ML (IVPB) BAG IV ONE (23:45)
[2020-01-20] MEDS ORDERED: HOLD METFORMIN - RECEIVED CONTRAST 20 ML VIAL IV SCH (23:45)
[2020-01-20 23:48] LABS: BILIRUBIN,URINE NEGATIVE (NEGATIVE); CLARITY,URINE CLEAR; COLOR,URINE YELLOW; GLUCOSE, URINE (UA) NEGATIVE (NEGATIVE); KETONES,URINE NEGATIVE (NEGATIVE); LEUKOCYTE ESTERASE ,URINE NEGATIVE (NEGATIVE); NITRITE,URINE NEGATIVE (NEGATIVE); PH,URINE 7.5 (5-9); PROTEIN,URINE NEGATIVE (NEGATIVE)
[2020-01-20 23:57] LABS: BACTERIA,URINE NEGATIVE /HPF; SQUAMOUS EPITHELIAL CELL,UR RARE /HPF
[2020-01-21 00:06] LABS: AMPHETAMINE SCREEN, URINE POSITIVE (NEGATIVE); BARBITURATE SCREEN URINE NEGATIVE (NEGATIVE); BENZODIAZEPINES SCREEN URINE NEGATIVE (NEGATIVE); CANNABINOID SCREEN, URINE NEGATIVE (NEGATIVE); COCAINE SCREEN URINE NEGATIVE (NEGATIVE); METHADONE STAT NEGATIVE (NEGATIVE); METHAMPHETAMINE SCREEN URINE S NEGATIVE (NEGATIVE); OPIATE SCREEN URINE NEGATIVE (NEGATIVE); OXYCODONE STAT NEGATIVE (NEGATIVE); PROPOXYPHENE STAT NEGATIVE (NEGATIVE); TRICYCLIC ANTIDEPRESSANTS SCRE NEGATIVE (NEGATIVE)
[2020-01-21] MEDS ORDERED: cefTRIAXone FOR IV USE 1,000 MG in WATER (STERILE) FOR INJECTION 10 ML IV ONE (00:45)
[2020-01-21] MEDS ORDERED: AZITHROMYCIN INJECTION 500 MG in NS (IVPB) 250 ML IV ONE (00:45)
[2020-01-21] MEDS ORDERED: ENOXAPARIN 80 MG/0.8 ML (LOVENOX) SYR SC ONE (01:00)
--- NOTE | 2020-01-21 01:00 | NUR ---
DR. BROWN STATES SHE SPOKE WITH PT AND HE AGREED AT THIS TIME FOR FLU AND COVID SWABS AND TO BE ADMITTED TO THE HOSPITAL FOR FURTHER EVALUATION.
[2020-01-21] MEDS ORDERED: WATER (STERILE) FOR INJECTION 10 ML ONE (01:46)
[2020-01-21] MEDS ORDERED: NS (IVPB) 250 ML ONE (01:46)
[2020-01-21] MEDS ORDERED: cefTRIAXone 1,000 MG IV (ROCEPHIN) VIAL ONE (01:46)
[2020-01-21] MEDS ORDERED: AZITHROMYCIN INJECTION 500 MG/5 ML VIAL ONE (01:47)
[2020-01-21] MEDS ORDERED: CATHETER FLUSH 10 ML SYR IV PRN (02:15)
[2020-01-21] MEDS ORDERED: ONDANSETRON 4 MG/2 ML (SDV) Z0FRAN IV PRN (02:15)
[2020-01-21] MEDS ORDERED: ACETAMINOPHEN 500 MG TAB (TYLENOL) PO PRN (02:15)
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
--- NOTE | 2020-01-21 02:20 | NUR ---
IV TO LEFT AC REMOVED WITH CATHETER TIP INTACT. PT SIGNED AMA FORM AND LEFT ER.
--- NOTE | 2020-01-21 05:43 | Diagnostic Imaging Report ---
INDICATION: Dyspnea. COMPARISON: 12/06/2019 FINDINGS: Single frontal radiographic view of the chest was obtained and again demonstrates moderate to severe cardiomegaly with moderate pulmonary vascular congestion and diffuse prominence of pulmonary interstitium. There may be small pleural effusions as well. There is no pneumothorax. Osseous structures show no gross acute abnormalities. IMPRESSION: 1. Cardiomegaly with sequela of CHF including interstitial pulmonary edema and probable small bibasilar effusions. Dictated by: Dictated on workstation # [id number]
[2020-01-21] MEDS ORDERED: NITROGLYCERIN 2% OINT 1 GM UNIT DOSE PACKET TOP SCH (06:00)
--- NOTE | 2020-01-21 06:32 | Diagnostic Imaging Report ---
PROCEDURE: CT angiography of the chest with contrast. TECHNIQUE: Multiple contiguous axial images were obtained through the chest after uneventful bolus administration of intravenous contrast. 3D reconstructed CTA MIP acquisitions were also performed. Auto Exposure Controls were utilized during the CT exam to meet ALARA standards for radiation dose reduction. INDICATION: Dyspnea. Correlation is made with prior CT chest from 11/04/2019. Evaluation of the pulmonary arterial system is without evidence of thromboembolism. No filling defects are seen within central, lobar or segmental branches. Thoracic aorta is normal in caliber. No dissection is seen. Heart remains enlarged. No pericardial fluid is identified. Small to moderate right and small left pleural effusion persists. Patchy airspace infiltrates bilateral upper lobes show slight improvement. There has has been some improvement of aeration of the right lower lobe since prior. There is now moderate amount of airspace consolidation in the left lower lobe. Upper abdomen is unremarkable. IMPRESSION: 1. No evidence of pulmonary embolism or thoracic aortic dissection. 2. Cardiomegaly. 3. Stable bilateral pleural effusions. 4. Bilateral pulmonary infiltrates. These appear to be improved in the upper lobes as well as the right lower lobe. There is new or increasing infiltrate in the left lower lobe. Dictated by: Dictated on workstation # [id number]
[2020-01-21] MEDS ORDERED: FUROSEMIDE 40 MG/4 ML INJ (LASIX) IVP SCH (07:00)
[2020-01-21] MEDS ORDERED: ADVAIR HFA 115/21 MCG INHALER 8 GM IH ONE (08:00)
[2020-01-21] MEDS ORDERED: cefTRIAXone 1,000 MG/SWFI 10 ML IV PUSH IV SCH ×2 (21:00)
[2020-01-21] MEDS ORDERED: AZITHROMYCIN 250 MG TAB (ZITHROMAX) PO SCH (21:00)
== END 2020-01-21 02:20 | disposition left against medical advice (07) ==
LOC: EDUNIT# 21:42 → ER 21:43 → CSD 01-21 00:40 → UNDOADMIN 01-21 00:40
DX: I11.0 Hypertensive heart disease with heart failure (principal); I42.9 Cardiomyopathy, unspecified; F19.90 Other psychoactive substance use, unspecified, uncomplicated; J18.9 Pneumonia, unspecified organism; I25.2 Old myocardial infarction; F41.9 Anxiety disorder, unspecified; Z95.9 Presence of cardiac and vascular implant and graft, unspecified; Z79.82 Long term (current) use of aspirin; Z82.49 Family history of ischemic heart disease and other diseases of the circulatory system
CPT/HCPCS: 36415; 71045; 71275; 80053; 80306; 81000; 82550; 82553; 83735; 83874; 83880; 84145; 84484; 85025; 85379; 85610; 85652; 85730; 86141; 87040; 93041

== ENCOUNTER 2020-02-24 20:42 | Emergency (ER) | payer SELFPAY ==
[~2020-02-24] VITALS: Ht 172.7 cm; Wt 77.1 kg
[2020-02-24 21:05] LABS: HEMATOCRIT 39 % (40-54); HEMOGLOBIN 12.3 G/DL (13.3-17.7); MEAN CORPUSCULAR HEMOGLOBIN 27 PG (25-34); MEAN CORPUSCULAR HGB CONC 31 G/DL (32-36); MEAN CORPUSCULAR VOLUME 86 FL (80-99); PLATELET COUNT 339 10^3/uL (130-400); WHITE BLOOD COUNT 6.8 10^3/uL (4.3-11.0)
[2020-02-24 21:06] LABS: BASOPHILS % (AUTO) 1 % (0-10); EOSINOPHILS % (AUTO) 1 % (0-10); LYMPHOCYTES # (AUTO) 1.2 X 10^3 (1.0-4.0); LYMPHOCYTES % (AUTO) 18 % (12-44); MONOCYTES # (AUTO) 0.4 X 10^3 (0.0-1.0); MONOCYTES % (AUTO) 6 % (0-12); NEUTROPHILS # (AUTO) 5.1 X 10^3 (1.8-7.8); NEUTROPHILS % (AUTO) 75 % (42-75)
[2020-02-24 21:07] LABS: BASOPHILS # (AUTO) 0.1 10^3/uL (0.0-0.1); EOSINOPHILS # (AUTO) 0.1 10^3/uL (0.0-0.3)
--- NOTE | 2020-02-24 21:27 | Diagnostic Imaging Report ---
INDICATION: Shortness of breath. COMPARISON: Prior examination from 01/20/2020. FINDINGS: There is a globular enlarged appearance of the heart. There is venous congestion. There is no pleural effusion or pneumothorax. Mediastinum is unremarkable. IMPRESSION: 1. Cardiomegaly with a globular appearance of the heart. Possibility of underlying pericardial effusion certainly cannot be excluded. Cardiomyopathy is also a consideration. Recommend clinical correlation and, if warranted, follow-up with echocardiography. 2. Moderate central pulmonary venous congestion. Dictated by: Dictated on workstation # [id number]
[2020-02-24 21:35] LABS: BUN/CREATININE RATIO 13; CARBON DIOXIDE 26 MMOL/L (21-32); CHLORIDE 103 MMOL/L (98-107); CREATININE SERUM 1.18 MG/DL (0.60-1.30); GFR ESTIMATED > 60; POTASSIUM 4.3 MMOL/L (3.6-5.0); SODIUM 138 MMOL/L (135-145)
[2020-02-24 21:36] LABS: ALANINE AMINOTRANSFERASE 37 U/L (0-55); ALBUMIN 3.1 GM/DL (3.2-4.5); ALKALINE PHOSPHATASE 97 U/L (40-136); BILIRUBIN,TOTAL 1.1 MG/DL (0.1-1.0); CALCIUM 8.7 MG/DL (8.5-10.1); GLUCOSE 131 MG/DL (70-105); TOTAL PROTEIN 6.5 GM/DL (6.4-8.2)
[2020-02-24] MEDS ORDERED: FUROSEMIDE 40 MG/4 ML INJ (LASIX) IVP ONE (21:45)
[2020-02-24] MEDS ORDERED: cloNIDine 0.1 MG (CATAPRES) TAB PO ONE (23:00)
--- NOTE | 2020-02-24 23:46 | ED General ---
General Chief Complaint: Respiratory Problems Stated Complaint: SOA Nursing Triage Note: Patient was brought in via EMS with severe shortness of breath and wheezing. EMS states that they gave a duo neb enroute. EMS also states that they put an 18g in the left AC. Nursing Sepsis Screen: No Definite Risk Source of Information: Patient History of Present Illness Date Seen by Provider: Feb 24, 2020 Time Seen by Provider: 21:00 Initial Comments She has a 40-year-old -[place] male with history of congestive cardiomyopathy, CAD, MS, stroke with significantly reduced ejection fraction who presents with acute shortness of breath starting earlier this evening and. Patient reports dyspnea with rest and mild exertion. Patient currently visiting from out of town and has not taken his evening blood pressure medications. Blood pressure noted to be elevated 160s over 1 teens. Patient denies chest pain. Reports dyspnea with exertion and orthopnea. Denies increased leg pain, swelling, decreased urine output. No other acute symptoms or complaints. Timing/Duration: 4-6 Hours Severity: Moderate Modifying Factors: improves with Rest Associated Systoms: Shortness of Air Allergies and Home Medications Allergies Coded Allergies: No Known Drug Allergies (Unverified , 10/05/19) Home Medications Aspirin 81 Mg Tablet.dr, 81 MG PO DAILY, (Reported) Carvedilol 3.125 Mg Tablet, 3.125 MG PO BID, (Reported) Furosemide 20 Mg Tablet, 20 MG PO DAILY, (Reported) Losartan Potassium 25 Mg Tablet, 25 MG PO DAILY, (Reported) Ondansetron 8 Mg Tab.rapdis, 8 MG PO Q4H PRN for NAUSEA/VOMITING-1ST LINE, (Reported) Pantoprazole Sodium 40 Mg Tablet.dr, 40 MG PO DAILY, (Reported) Potassium Chloride 10 Meq Tablet.er, 5 MEQ PO BID, (Reported) TAKES OF A 10MEQ Patient Home Medication List Home Medication List Reviewed: Yes Review of Systems Review of Systems Constitutional: see HPI EENTM: see HPI Respiratory: see HPI Cardiovascular: see HPI Gastrointestinal: see HPI Genitourinary: see HPI Musculoskeletal: see HPI Skin: see HPI Hematologic/Lymphatic: See HPI Immunological/Allergic: see HPI Past Mwsmwde-Wvzwkc-Szigkj Hx Past Med/Social Hx: Reviewed Nursing Past Med/Soc Hx Patient Social History Alcohol Use: Denies Use Recreational Drug Use: Yes Drug of Choice: MARIJUANA Smoking Status: Former Smoker 2nd Hand Smoke Exposure: No Recent Foreign Travel: No Contact w/Someone Who Travel: No Recent Infectious Disease Expo: No Recent Hopitalizations: No Physical Abuse: No Sexual Abuse: No Mistreated: No Fear: No Immunizations Up To Date Tetanus Booster (TDap): Unknown Date of Pneumonia Vaccine: Dec 07, 2018 Seasonal Allergies Seasonal Allergies: Yes (USE INHALER) Past Medical History Surgeries: Yes (CARDIAC CATH 11/2019--NO INTERVENTION) Cardiac Respiratory: Yes Asthma Currently Using CPAP: No Currently Using BIPAP: No Cardiac: Yes (CHF--NEEDS LIFEVEST/REFUSES TO WEAR; NSTEMI; EF 10%;LBBB ) Cardiomyopathy, Coronary Artery Disease, Heart Attack, Hypertension Neurological: Yes Stroke Sexually Transmitted Disease: Yes (CHLAMYDIA; GONORRHEA 10/05/19) Genitourinary: No Gastrointestinal: No Musculoskeletal: No Endocrine: No HEENT: No Cancer: No Psychosocial: Yes (SUBSTANCE ABUSE) Integumentary: No Blood Disorders: No Family Medical History Asthma AUNT Hypertension MOTHER No Pertinent Family Hx HAS BEEN OUT OF NURSING HOME SINCE 2018 VERY NON-COMPLIANT IN ALL ASPECTS OF CARE Physical Exam Vital Signs Vital Signs - First Documented 02/24/20 20:42 Temp 37.1 Pulse 140 Resp 37 B/P (MAP) 160/102 (121) Pulse Ox 98 Capillary Refill : Less Than 3 Seconds Height, Weight, BMI Height: '" Weight: lbs. oz. kg; 25.00 BMI Method: General Appearance: No Apparent Distress, WD/WN Eyes: Bilateral Eye Normal Inspection, Bilateral Eye PERRL, Bilateral Eye EOMI HEENT: PERRL/EOMI, Normal ENT Inspection, Pharynx Normal Neck: Full Range of Motion, Non Tender, Supple Respiratory: Normal Breath Sounds, No Accessory Muscle Use, Rales, Wheezing Gastrointestinal: Soft Back: Normal Inspection Extremity: Normal Capillary Refill Neurologic/Psychiatric: Alert, Oriented x3, ride mechanic II-XII Norm as Tested Skin: Normal Color, Warm/Dry, Damp Focused Exam Sepsis Stage: Ruled Out Progress/Results/Core Measures Suspected Sepsis Recent Fever Within 48 Hours: No Infection Criteria Present: None New/Unexplained Altered Menta: No Sepsis Screen: No Definite Risk SIRS Temperature: Pulse: 140 Respiratory Rate: 37 Laboratory Tests 02/24/20 20:50: White Blood Count 6.8 Blood Pressure 160 /102 Mean: 121 Laboratory Tests 02/24/20 20:50: Creatinine 1.18, Platelet Count 339, Total Bilirubin 1.1H Results/Orders Lab Results Laboratory Tests Test 02/24/20 20:50 Range/Units White Blood Count 6.8 4.3-11.0 10^3/uL Red Blood Count 4.55 4.35-5.85 10^6/uL Hemoglobin 12.3 L 13.3-17.7 G/DL Hematocrit 39 L 40-54 % Mean Corpuscular Volume 86 80-99 FL Mean Corpuscular Hemoglobin 27 25-34 PG Mean Corpuscular Hemoglobin Concent 31 L 32-36 G/DL Red Cell Distribution Width 16.1 H 10.0-14.5 % Platelet Count 339 130-400 10^3/uL Mean Platelet Volume 10.0 7.4-10.4 FL Immature Granulocyte % (Auto) 0 % Neutrophils (%) (Auto) 75 42-75 % Lymphocytes (%) (Auto) 18 12-44 % Monocytes (%) (Auto) 6 0-12 % Eosinophils (%) (Auto) 1 0-10 % Basophils (%) (Auto) 1 0-10 % Neutrophils # (Auto) 5.1 1.8-7.8 X 10^3 Lymphocytes # (Auto) 1.2 1.0-4.0 X 10^3 Monocytes # (Auto) 0.4 0.0-1.0 X 10^3 Eosinophils # (Auto) 0.1 0.0-0.3 10^3/uL Basophils # (Auto) 0.1 0.0-0.1 10^3/uL Immature Granulocyte # (Auto) 0.0 0.0-0.1 10^3/uL Sodium Level 138 135-145 MMOL/L Potassium Level 4.3 3.6-5.0 MMOL/L Chloride Level 103 98-107 MMOL/L Carbon Dioxide Level 26 21-32 MMOL/L Anion Gap 9 5-14 MMOL/L Blood Urea Nitrogen 15 7-18 MG/DL Creatinine 1.18 0.60-1.30 MG/DL Estimat Glomerular Filtration Rate > 60 BUN/Creatinine Ratio 13 Glucose Level 131 H 70-105 MG/DL Calcium Level 8.7 8.5-10.1 MG/DL Corrected Calcium 9.4 8.5-10.1 MG/DL Total Bilirubin 1.1 H 0.1-1.0 MG/DL Aspartate Amino Transf (AST/SGOT) 42 H 5-34 U/L Alanine Aminotransferase (ALT/SGPT) 37 0-55 U/L Alkaline Phosphatase 97 40-136 U/L Troponin I < 0.30 <0.30 NG/ML Pro-B-Type Natriuretic Peptide 6246.0 H <75.0 PG/ML Total Protein 6.5 6.4-8.2 GM/DL Albumin 3.1 L 3.2-4.5 GM/DL My Orders Orders - TAMI OLEARY DO Cbc With Automated Diff (02/24/20 20:52) Comprehensive Metabolic Panel (02/24/20 20:52) Troponin I Fs (02/24/20 20:52) Probnp Fs (02/24/20 20:52) Chest 1 View Ap/Pa Only (02/24/20 20:52) Ekg Tracing (02/24/20 20:56) Furosemide Injection (Lasix Injection) (02/24/20 21:45) Clonidine Tablet (Catapres Tablet) (02/24/20 23:00) Medications Given in ED Current Medications Medications Dose Ordered Sig/Nelly Route Start Time Stop Time Status Last Admin Dose Admin Clonidine HCl 0.2 mg ONCE ONCE PO 02/24/20 23:00 02/24/20 23:01 DC 02/24/20 23:06 0.2 MG Furosemide 40 mg ONCE ONCE IVP 02/24/20 21:45 02/24/20 21:46 DC 02/24/20 21:46 40 MG Vital Signs/I&O 02/24/20 20:42 Temp 37.1 Pulse 140 Resp 37 B/P (MAP) 160/102 (121) Pulse Ox 98 Capillary Refill : Less Than 3 Seconds Blood Pressure Mean: 121 Departure Communication (Admissions) Chest x-ray, EKG and lab reviewed, Significant urine output with treatment ED greater than 4 L. Blood pressure also improved with treatment. Patient breathing comfortably requesting discharge to home. Patient will be discharged home with instructions to resume home blood pressure medications as soon as returning home. Otherwise he is to follow-up with his craft superintendent as directed. Impression Primary Impression: Acute on chronic heart failure Disposition: 01 HOME, SELF-CARE Condition: Stable Departure-Patient Inst. Decision time for Depature: 00:02 Referrals: NO,LOCAL PHYSICIAN (PCP/Family) Primary Care Physician Patient Instructions: CHF Add. Discharge Instructions: Please resume all home blood pressure medications upon returning home and follow-up with her craft superintendent for reevaluation. Return to the ED if new or worsening symptoms. All discharge instructions reviewed with patient and/or family. Voiced understanding. TAMI OLEARY DO Feb 24, 2020 23:46
[2020-02-25 00:15] VITALS: BP 129/92
== END 2020-02-25 00:35 | disposition home or self-care (01) ==
LOC: EDUNIT# 20:42 → ER FS 20:44
DX: I11.0 Hypertensive heart disease with heart failure (principal); I25.2 Old myocardial infarction; Z82.49 Family history of ischemic heart disease and other diseases of the circulatory system; Z95.9 Presence of cardiac and vascular implant and graft, unspecified; Z87.891 Personal history of nicotine dependence; Z79.82 Long term (current) use of aspirin
CPT/HCPCS: 36415; 71045; 80053; 83880; 84484; 85025; 93005; 96374

== ENCOUNTER 2020-03-11 21:26 | Emergency (ER) | payer SELFPAY ==
[~2020-03-11] VITALS: Ht 172.7 cm; Wt 76.7 kg
[2020-03-11 21:35] VITALS: BP 154/108
[2020-03-11 21:58] LABS: BASOPHILS % (AUTO) 0 % (0-10); EOSINOPHILS # (AUTO) 0.2 10^3/uL (0.0-0.3); EOSINOPHILS % (AUTO) 3 % (0-10); HEMATOCRIT 38 % (40-54); HEMOGLOBIN 11.7 g/dL (13.3-17.7); LYMPHOCYTES % (AUTO) 15 % (12-44); MEAN CORPUSCULAR HEMOGLOBIN 27 pg (25-34); MEAN CORPUSCULAR HGB CONC 31 g/dL (32-36); MEAN CORPUSCULAR VOLUME 87 fL (80-99); MEAN PLATELET VOLUME 10.2 fL (9.0-12.2); MONOCYTES # (AUTO) 0.5 10^3/uL (0.0-1.0); MONOCYTES % (AUTO) 7 % (0-12); NEUTROPHILS # (AUTO) 5.4 10^3/uL (1.8-7.8); NEUTROPHILS % (AUTO) 76 % (42-75); PLATELET COUNT 277 10^3/uL (130-400); WHITE BLOOD COUNT 7.1 10^3/uL (4.3-11.0)
[2020-03-11] MEDS ORDERED: NITROGLYCERIN 2% OINT 1 GM UNIT DOSE PACKET TOP ONE (22:15)
[2020-03-11] MEDS ORDERED: FUROSEMIDE 40 MG/4 ML INJ (LASIX) IVP ONE (22:15)
[2020-03-11 22:16] LABS: INR 1.2 (0.8-1.4); PROTHROMBIN TIME PATIENT 15.5 SEC (12.2-14.7)
[2020-03-11 22:22] LABS: ALANINE AMINOTRANSFERASE 32 U/L (0-55); ALBUMIN 3.1 GM/DL (3.2-4.5); ALKALINE PHOSPHATASE 86 U/L (40-136); BUN/CREATININE RATIO 12; CALCIUM 8.3 MG/DL (8.5-10.1); CARBON DIOXIDE 26 MMOL/L (21-32); CHLORIDE 106 MMOL/L (98-107); CREATINE KINASE 862 U/L (30-200); CREATININE SERUM 1.13 MG/DL (0.60-1.30); GFR ESTIMATED > 60; GLUCOSE 100 MG/DL (70-105); POTASSIUM 3.7 MMOL/L (3.6-5.0); SODIUM 140 MMOL/L (135-145); TOTAL PROTEIN 6.7 GM/DL (6.4-8.2)
[2020-03-11 22:23] LABS: BILIRUBIN,URINE NEGATIVE (NEGATIVE); CLARITY,URINE CLEAR; COLOR,URINE YELLOW; GLUCOSE, URINE (UA) NEGATIVE (NEGATIVE); KETONES,URINE NEGATIVE (NEGATIVE); LEUKOCYTE ESTERASE ,URINE NEGATIVE (NEGATIVE); NITRITE,URINE NEGATIVE (NEGATIVE); PROTEIN,URINE 1+ (NEGATIVE)
[2020-03-11 22:40] LABS: BACTERIA,URINE TRACE /HPF; RBC,URINE 0-2 /HPF; WBC,URINE 0-2 /HPF
[2020-03-11 22:41] LABS: CREATINE KINASE MB 4.7 NG/ML (<6.6); TSH (THYROID ANALYZER) 1.18 UIU/ML (0.35-4.94)
[2020-03-11 22:42] LABS: AMPHETAMINE SCREEN, URINE NEGATIVE (NEGATIVE); BARBITURATE SCREEN URINE NEGATIVE (NEGATIVE); BENZODIAZEPINES SCREEN URINE NEGATIVE (NEGATIVE); CANNABINOID SCREEN, URINE NEGATIVE (NEGATIVE); COCAINE SCREEN URINE NEGATIVE (NEGATIVE); METHADONE STAT NEGATIVE (NEGATIVE); METHAMPHETAMINE SCREEN URINE S NEGATIVE (NEGATIVE); OPIATE SCREEN URINE NEGATIVE (NEGATIVE); OXYCODONE STAT NEGATIVE (NEGATIVE); PROPOXYPHENE STAT NEGATIVE (NEGATIVE); TRICYCLIC ANTIDEPRESSANTS SCRE NEGATIVE (NEGATIVE)
--- NOTE | 2020-03-11 22:52 | ED Cardiac General ---
History of Present Illness General Chief Complaint: Cardiac/General Problems Stated Complaint: SWELLING IN BOTH LEGS Nursing Triage Note: PT ARRIVED BY PRIVATE VEHICLE WITH CHIEF COMPLAINT OF LEG SWELLING. PT WAS ALERT, ORIENTED AND AMBULATORY ON ARRIVAL. PT'S VITAL SIGNS WERE TAKEN, IV WAS STARTED WITH BLOOD DRAW AND PT PROVIDED STAFF WITH A URINE SAMPLE. PT HAS HISTORY OF CHF, HIGH CHOLESTEROL, HYPERTENSION, ASTHMA. PT HAD A HEART ATTACK AND STROKE ON 2019. PT HAS HAD BILATERAL LEG SWELLING. HE GOT IN THE HOT TUB TONIGHT AND MADE HIS LEG SWELLING WORSE. PT SEES DR. MAGDALENO FOR CARDIOLOGY. PT TAKES LASIX DAILY. PT DENIES SMOKING, ALCOHOL OR DRUG USE. Source: patient, old records History of Present Illness Date Seen by Provider: Mar 11, 2020 Time Seen by Provider: 21:38 Initial Comments PT ARRIVES VIA POV FROM HOME C/O BILATERAL LEG SWELLING X 1 WEEK THIS IS A CHRONIC/RECURRING PROBLEM, WITH HISTORY OF CHF SYMPTOMS NO DIFFERENT TODAY HAS NOT SOUGHT CARE UNTIL TONIGHT NO CHEST PAIN DOES HAVE SOME MILD SHORTNESS OF BREATH--STATES HE RAN OUT OF HIS INHALER AND NEBULIZER THIS MORNING NO FEVER NO COUGH OR URI SYMPTOMS NO LOSS OF TASTE OR SMELL NO SORE THROAT NO GI SYMPTOMS PT DENIES ANY MISSED DOSES OF MEDICATIONS OR ANY CHANGES IN MEDICATIONS STATES HE HAS NOT FOLLOWED UP WITH DR. MAGDALENO IN OFFICE SINCE HIS LAST HOSPITALIZATION IN --SAW HIM IN THE HOSPITAL, BUT DID NOT FOLLOW UP IN OFFICE LIKEWISE HAS NOT FOLLOWED UP WITH DR. CONROY OR ANYONE AT [facility] SINCE HIS LAST ADMIT IN . PT WITH 10 VISITS HERE SINCE 10/05/19, WHICH WAS HIS FIRST VISIT HERE. NEARLY ALL ARE FOR CHF-RELATED ISSUES. PT HAS SIGNED OUT AMA MULTIPLE TIMES, SEE OLD CHARTS FOR DETAILS PCP: [facility], DR. CONROY ASSEMBLER INSTALLER STRUCTURES: DR. MAGDALENO Allergies and Home Medications Allergies Coded Allergies: No Known Drug Allergies (Unverified , 10/05/19) Home Medications Aspirin 81 Mg Tablet.dr, 81 MG PO DAILY, (Reported) Carvedilol 3.125 Mg Tablet, 3.125 MG PO BID, (Reported) Furosemide 20 Mg Tablet, 20 MG PO DAILY, (Reported) Losartan Potassium 25 Mg Tablet, 25 MG PO DAILY, (Reported) Ondansetron 8 Mg Tab.rapdis, 8 MG PO Q4H PRN for NAUSEA/VOMITING-1ST LINE, (Reported) Pantoprazole Sodium 40 Mg Tablet.dr, 40 MG PO DAILY, (Reported) Potassium Chloride 10 Meq Tablet.er, 5 MEQ PO BID, (Reported) TAKES OF A 10MEQ Patient Home Medication List Home Medication List Reviewed: Yes Review of Systems Review of Systems Constitutional: no symptoms reported; No chills, No diaphoresis, No dizziness, No fever EENTM: No Symptoms Reported Respiratory: See HPI, Shortness of Air Cardiovascular: Denies Chest Pain; Edema; Denies Lightheadedness, Denies Palpitations Gastrointestinal: No Symptoms Reported Genitourinary: No Symptoms Reported Musculoskeletal: see HPI Skin: no symptoms reported Psychiatric/Neurological: No Symptoms Reported Endocrine: No Symptoms Reported Hematologic/Lymphatic: No Symptoms Reported Past Nptisox-Flsurw-Tqiekq Hx Past Med/Social Hx: Reviewed and Corrections made Patient Social History Alcohol Use: Denies Use Recreational Drug Use: Yes Drug of Choice: MARIJUANA Smoking Status: Former Smoker 2nd Hand Smoke Exposure: No Recent Foreign Travel: No Contact w/Someone Who Travel: No Recent Infectious Disease Expo: No Recent Hopitalizations: No Physical Abuse: No Sexual Abuse: No Mistreated: No Fear: No Immunizations Up To Date Tetanus Booster (TDap): Unknown Date of Pneumonia Vaccine: Dec 07, 2018 Seasonal Allergies Seasonal Allergies: Yes (USE INHALER) Past Medical History Surgeries: Yes (CARDIAC CATH 11/2019--NO INTERVENTION) Cardiac Respiratory: Yes Asthma Currently Using CPAP: No Currently Using BIPAP: No Cardiac: Yes (CHF--NEEDS LIFEVEST/REFUSES TO WEAR; NSTEMI; EF 10%;LBBB ) Cardiomyopathy, Chronic Edema/Swelling, Coronary Artery Disease, Heart Attack, High Cholesterol, Hypertension Neurological: Yes Stroke Sexually Transmitted Disease: Yes (CHLAMYDIA; GONORRHEA 10/05/19) Genitourinary: No Gastrointestinal: No Musculoskeletal: No Endocrine: No HEENT: No Cancer: No Psychosocial: Yes (SUBSTANCE ABUSE) Integumentary: No Blood Disorders: No Family Medical History Asthma AUNT Hypertension MOTHER No Pertinent Family Hx HAS BEEN OUT OF SNF SINCE 2018 VERY NON-COMPLIANT IN ALL ASPECTS OF CARE NEEDS LIFE VEST-=-REFUSES TO WEAR; NSTEMI; EF 10%; LBBB SOCIAL HISTORY: -ETOH-RARELY USES -DRUGS--METH, COCAINE, THC. DENIES IV USE-STATES HE SMOKES THEM -NO TOBACCO PAST SURGICAL HISTORY: -CARDIAC CATH 11/2019--NO INTERVENTION Physical Exam Vital Signs Vital Signs - First Documented 03/11/20 21:35 Temp 36.5 Pulse 107 Resp 20 B/P (MAP) 154/108 (123) Pulse Ox 96 O2 Delivery Room Air Capillary Refill : Less Than 3 Seconds Height, Weight, BMI Height: '" Weight: lbs. oz. kg; 25.00 BMI Method: General Appearance: WD/WN, Other (MILDLY DYSPNEIC, BUT ABLE TO TALK IN SHORT SENTENCES. ) Neck: Full Range of Motion, Non Tender, Supple, JVD Respiratory: Rales (FAINT RALES IN BASES), Other (MILDLY DYSPNEIC ON ARRIVAL) Cardiovascular: Regular Rate, Rhythm, No Murmur, JVD Gastrointestinal: Normal Bowel Sounds, No Organomegaly, No Pulsatile Mass, Non Tender, Soft Extremity: Normal Capillary Refill, Normal Range of Motion, No Calf Tenderness, Pedal Edema (2+ ON RIGHT, 1+ ON LEFT) Neurologic/Psychiatric: Alert, Oriented x3, No Motor/Sensory Deficits, dredging inspector II- XII Norm as Tested, Other Skin: Normal Color (PT IS BLACK), Warm/Dry Progress/Results/Core Measures Results/Orders Lab Results Laboratory Tests Test 03/11/20 21:45 03/11/20 22:15 Range/Units White Blood Count 7.1 4.3-11.0 10^3/uL Red Blood Count 4.34 4.30-5.52 10^6/uL Hemoglobin 11.7 L 13.3-17.7 g/dL Hematocrit 38 L 40-54 % Mean Corpuscular Volume 87 80-99 fL Mean Corpuscular Hemoglobin 27 25-34 pg Mean Corpuscular Hemoglobin Concent 31 L 32-36 g/dL Red Cell Distribution Width 15.9 H 10.0-14.5 % Platelet Count 277 130-400 10^3/uL Mean Platelet Volume 10.2 9.0-12.2 fL Immature Granulocyte % (Auto) 0 % Neutrophils (%) (Auto) 76 H 42-75 % Lymphocytes (%) (Auto) 15 12-44 % Monocytes (%) (Auto) 7 0-12 % Eosinophils (%) (Auto) 3 0-10 % Basophils (%) (Auto) 0 0-10 % Neutrophils # (Auto) 5.4 1.8-7.8 10^3/uL Lymphocytes # (Auto) 1.0 1.0-4.0 10^3/uL Monocytes # (Auto) 0.5 0.0-1.0 10^3/uL Eosinophils # (Auto) 0.2 0.0-0.3 10^3/uL Basophils # (Auto) 0.0 0.0-0.1 10^3/uL Immature Granulocyte # (Auto) 0.0 0.0-0.1 10^3/uL Prothrombin Time 15.5 H 12.2-14.7 SEC INR Comment 1.2 0.8-1.4 Activated Partial Thromboplast Time 29 24-35 SEC Sodium Level 140 135-145 MMOL/L Potassium Level 3.7 3.6-5.0 MMOL/L Chloride Level 106 98-107 MMOL/L Carbon Dioxide Level 26 21-32 MMOL/L Anion Gap 8 5-14 MMOL/L Blood Urea Nitrogen 14 7-18 MG/DL Creatinine 1.13 0.60-1.30 MG/DL Estimat Glomerular Filtration Rate > 60 BUN/Creatinine Ratio 12 Glucose Level 100 70-105 MG/DL Calcium Level 8.3 L 8.5-10.1 MG/DL Corrected Calcium 9.0 8.5-10.1 MG/DL Magnesium Level 2.0 1.6-2.4 MG/DL Total Bilirubin 1.0 0.1-1.0 MG/DL Aspartate Amino Transf (AST/SGOT) 49 H 5-34 U/L Alanine Aminotransferase (ALT/SGPT) 32 0-55 U/L Alkaline Phosphatase 86 40-136 U/L Total Creatine Kinase 862 H 30-200 U/L Creatine Kinase MB 4.7 <6.6 NG/ML Myoglobin 111.8 H 10.0-92.0 NG/ML Troponin I 0.033 H <0.028 NG/ML B-Type Natriuretic Peptide 2600.2 H <100.0 PG/ML Total Protein 6.7 6.4-8.2 GM/DL Albumin 3.1 L 3.2-4.5 GM/DL TSH [facility] Testing 1.18 0.35-4.94 UIU/ML Serum Alcohol < 10 <10 MG/DL Urine Color YELLOW Urine Clarity CLEAR Urine pH 7.0 5-9 Urine Specific [place] 1.010 L 1.016-1.022 Urine Protein 1+ H NEGATIVE Urine Glucose (UA) NEGATIVE NEGATIVE Urine Ketones NEGATIVE NEGATIVE Urine Nitrite NEGATIVE NEGATIVE Urine Bilirubin NEGATIVE NEGATIVE Urine Urobilinogen 4.0 < = 1.0 MG/DL Urine Leukocyte Esterase NEGATIVE NEGATIVE Urine RBC (Auto) NEGATIVE NEGATIVE Urine RBC 0-2 /HPF Urine WBC 0-2 /HPF Urine Squamous Epithelial Cells 2-5 /HPF Urine Crystals NONE /LPF Urine Bacteria TRACE /HPF Urine Casts NONE /LPF Urine Mucus NEGATIVE /LPF Urine Culture Indicated NO Urine Opiates Screen NEGATIVE NEGATIVE Urine Oxycodone Screen NEGATIVE NEGATIVE Urine Methadone Screen NEGATIVE NEGATIVE Urine Propoxyphene Screen NEGATIVE NEGATIVE Urine Barbiturates Screen NEGATIVE NEGATIVE Ur Tricyclic Antidepressants Screen NEGATIVE NEGATIVE Urine Phencyclidine Screen NEGATIVE NEGATIVE Urine Amphetamines Screen NEGATIVE NEGATIVE Urine Methamphetamines Screen NEGATIVE NEGATIVE Urine Benzodiazepines Screen NEGATIVE NEGATIVE Urine Cocaine Screen NEGATIVE NEGATIVE Urine Cannabinoids Screen NEGATIVE NEGATIVE My Orders Orders - VALERIE BROWN DO Ed Iv/Invasive Line Start (03/11/20 21:37) Ekg Tracing (03/11/20 21:37) Monitor-Rhythm Ecg Trace Only (03/11/20 21:37) BNP (03/11/20 21:37) Cbc With Automated Diff (03/11/20 21:37) Comprehensive Metabolic Panel (03/11/20 21:37) Magnesium (03/11/20 21:37) Protime With Inr (03/11/20 21:37) Partial Thromboplastin Time (03/11/20 21:37) Thyroid Analyzer (03/11/20 21:37) Ua Culture If Indicated (03/11/20 21:37) Chest 1 View, Ap/Pa Only (03/11/20 21:37) Alcohol (03/11/20 21:37) Creatine Kinase (03/11/20 21:37) Creatine Kinase Mb (03/11/20 21:37) Drug Screen Stat (Urine) (03/11/20 21:37) Myoglobin Serum (03/11/20 21:37) Troponin I (03/11/20 21:37) Furosemide Injection (Lasix Injection) (03/11/20 22:15) Nitroglycerin Ointment (Nitrobid Ointme (03/11/20 22:15) Ekg Tracing (03/12/20 00:40) Medications Given in ED Current Medications Medications Dose Ordered Sig/Nelly Route Start Time Stop Time Status Last Admin Dose Admin Furosemide 80 mg ONCE ONCE IVP 03/11/20 22:15 03/11/20 22:16 DC 03/11/20 22:06 80 MG Nitroglycerin 1 inch ONCE ONCE TOP 03/11/20 22:15 03/11/20 22:16 DC 03/11/20 22:06 1 INCH Vital Signs/I&O 03/11/20 21:35 Temp 36.5 Pulse 107 Resp 20 B/P (MAP) 154/108 (123) Pulse Ox 96 O2 Delivery Room Air 03/12/20 00:00 Output Total 3680 ml Balance -3680 ml Blood Pressure Mean: 123 Progress Progress Note : Progress Note GIVEN LASIX AND NITROPASTE FOR CHF AND ELEVATED BP PT AGREEABLE TO OBSERVING IN ER FOR 3 HOUR RULE OUT PT SLEPT/RESTED QUIETLY FOR REMAINDER OF ER STAY VITALS STABLE PT VOIDED > 5300 ML URINE DURING ER STAY 0040--PT NOW WANTING TO LEAVE, ADVISED HIM THAT HE WAS DUE NOW FOR REPEAT TESTS, AND NOW STATES HE DOES NOT WANT TO STAY. STATES HIS RIDE IS WAITING ON HIM OUTSIDE. AMA PAPERS SIGNED PT WITH NO DYSPNEA AT TIME OF DISMISSAL. Initial ECG Impression Date: Mar 11, 2020 Initial ECG Impression Time: 21:54 Initial ECG Rate: 100 Initial ECG Rhythm: S.Tach (LBBB) Initial ECG Comparisson: Unchanged Diagnostic Imaging Comments CXR--CARDIOMEGALY WITH CHF, PENDING RADIOLOGIST REVIEW Reviewed: Reviewed by Me Departure Impression Primary Impression: Left against medical advice Additional Impressions: Acute on chronic heart failure Essential (primary) hypertension MILDLY ELEVATED TROPONIN Disposition: 07 AGAINST MEDICAL ADVICE Condition: Against Medical Advice Departure-Patient Inst. Referrals: NO,LOCAL PHYSICIAN (PCP/Family) Primary Care Physician VALERIE BROWN DO Mar 11, 2020 22:52
--- NOTE | 2020-03-12 06:15 | Diagnostic Imaging Report ---
INDICATION: CHF, lower extremity swelling. COMPARISON: 02/24/2020. FINDINGS: Single view of the chest demonstrates stable cardiac enlargement. There is central vascular congestion and borderline pulmonary edema. There is no pneumothorax. Osseous structures are stable. IMPRESSION: Cardiac enlargement with central vascular congestion and borderline pulmonary edema. Dictated by: Dictated on workstation # [id number]
== END 2020-03-12 00:50 | disposition left against medical advice (07) ==
LOC: EDUNIT# 21:26 → ER 21:28
DX: I11.0 Hypertensive heart disease with heart failure (principal); I50.9 Heart failure, unspecified; R77.8 Other specified abnormalities of plasma proteins; I25.2 Old myocardial infarction; Z87.891 Personal history of nicotine dependence; Z95.9 Presence of cardiac and vascular implant and graft, unspecified; Z82.49 Family history of ischemic heart disease and other diseases of the circulatory system; Z79.82 Long term (current) use of aspirin
CPT/HCPCS: 71045; 80053; 80306; 81000; 82550; 82553; 83735; 83874; 83880; 84443; 84484; 85025; 85610; 85730; 93005; 93041; 99284; G0480; 36415; 80320

== ENCOUNTER 2020-04-21 23:53 | Emergency (ER) | payer SELFPAY | END 2020-04-22 00:16 | disposition left against medical advice (07) | LOC: EDUNIT# 23:53 → ER 23:55 | DX: R00.0 Tachycardia, unspecified (principal) ==

== ENCOUNTER → 2020-05-17 | Outpatient (CLI) | payer SELFPAY | LOC: CARD 04-25 11:30 | PROVIDERS: ATTEND Internal Medicine Cardiovascular Disease | DX: I11.9 Hypertensive heart disease without heart failure (principal); I08.1 Rheumatic disorders of both mitral and tricuspid valves; E78.2 Mixed hyperlipidemia | CPT/HCPCS: 93306 ==

== ENCOUNTER → 2020-05-31 | Outpatient (CLI) | payer OTHER ==
[~2020-05-31] MED LIST changes: +CEFU500T63 PO; +FURO40TA4 PO; +OXYC1TAB87 PO
== END ==
LOC: LABNPT 08:41
PROVIDERS: ATTEND Internal Medicine Cardiovascular Disease
DX: Z01.812 Encounter for preprocedural laboratory examination (principal); Z20.822 Contact with and (suspected) exposure to COVID-19
CPT/HCPCS: 87635

== ENCOUNTER 2020-06-04 08:42 | Day surgery (SDC) | payer OTHER ==
[~2020-06-04] VITALS: Ht 173 cm; Wt 97.2 kg
[~2020-06-04 08:42] MED LIST changes: -CEFU500T63 PO; -FURO40TA4 PO; -OXYC1TAB87 PO
[2020-06-04] MEDS ORDERED: LIDOCAINE 1% INJ 20 ML 20 ML VIAL ONE (09:10)
[2020-06-04] MEDS ORDERED: ceFAZolin INJECTION 1,000 MG ONE (09:10)
[2020-06-04] MEDS ORDERED: HEParin (CATH LAB) 1,000 ML IV ONE (09:10)
[2020-06-04] MEDS ORDERED: NS IV 1000 ML 1,000 ML ONE (09:10)
[2020-06-04] MEDS ORDERED: ceFAZolin INJECTION 1,000 MG VIAL IV ONE (09:15)
[2020-06-04] MEDS ORDERED: NS IV 1000 ML 1,000 ML IV ONE (09:15)
[2020-06-04] MEDS ORDERED: BACITRACIN INJECTION 50,000 UNIT, SODIUM CHLORIDE 0.9% IRRIGATIO 500 ML IR ONE ×2 (09:15)
--- NOTE | 2020-06-04 09:27 | Cardiac Procedure Note-CS/ASA ---
Pre-Procedure Note Pre-Op Procedure Note H&P Reviewed The H&P was reviewed, patient examined and no changes noted. Date H&P Reviewed: Jun 04, 2020 Time H&P Reviewed: :27 Conscious Sedation Pre-Proced Time 09:27 ASA Score 3 For ASA 3 and 4: Consider anesthesia and medical clearance. Also, for patients with a history of failed moderate sedation consider anesthesia. Airway Lungs Heart ASA score ASA 1: a normal healthy patient ASA 2: a patient with a mild systemic disease (mid diabetes, controlled hypertension, obesity x ASA 3: a patient with a severe systemic disease that limits activity (angina, COPD, prior Myocardial infarction) ASA 4: a patient with an incapacitating disease that is a constant threat to life (CHF, renal failure) ASA 5: a moribund patient not expected to survive 24 hrs. (ruptured aneurysm) ASA 6: a declared brain- patient whose organs are being harvested. For emergent operations, add the letter E after the classification Mallampati Classification Grade 3 Sedation Plan Analgesia, Amnesia, Plan communicated to team members, Discussed options with patient/fam, Discussed risks with patient/fam The patient is an appropriate candidate to undergo the planned procedure, sedation, and anesthesia. The patient immediately re-assessed prior to indication. FLORA MAGDALENO MD Jun 04, 2020 9:27 am
[2020-06-04 09:28] VITALS: BP 144/108
[2020-06-04] MEDS ORDERED: FURO40TA4 PO (09:44)
[2020-06-04 09:46] LABS: HEMOGLOBIN 12.7 g/dL (13.3-17.7); MEAN PLATELET VOLUME 10.3 fL (9.0-12.2); WHITE BLOOD COUNT 5.3 10^3/uL (4.3-11.0)
[2020-06-04] MEDS ORDERED: fentaNYL INJ 100 MCG/2 ML AMP ONE ×2 (09:51→10:59)
[2020-06-04] MEDS ORDERED: NS (IVPB) 50 ML ONE (09:51)
[2020-06-04] MEDS ORDERED: MIDAZOLAM 5 MG/5 ML (VERSED) VIAL ONE ×2 (09:51→10:59)
[2020-06-04 10:03] LABS: INR 1.3 (0.8-1.4); PROTHROMBIN TIME PATIENT 16.4 SEC (12.2-14.7)
[2020-06-04 10:07] LABS: ALANINE AMINOTRANSFERASE 33 U/L (0-55); ALBUMIN 3.6 GM/DL (3.2-4.5); ALKALINE PHOSPHATASE 127 U/L (40-136); BUN/CREATININE RATIO 11; CALCIUM 8.6 MG/DL (8.5-10.1); CARBON DIOXIDE 27 MMOL/L (21-32); CHLORIDE 101 MMOL/L (98-107); CHOLESTEROL 100 MG/DL (< 200); CREATININE SERUM 1.29 MG/DL (0.60-1.30); GFR ESTIMATED > 60; GLUCOSE 85 MG/DL (70-105); HDL CHOLESTEROL 22 MG/DL (40-60); SODIUM 138 MMOL/L (135-145); TOTAL PROTEIN 7.3 GM/DL (6.4-8.2); TRIGLYCERIDES 56 MG/DL (<150); VLDL CHOLESTEROL 11 MG/DL (5-40)
--- NOTE | 2020-06-04 10:31 | Diagnostic Imaging Report ---
INDICATION: Arrhythmia. EXAMINATION: Portable chest at 10:25 AM. FINDINGS: There is cardiomegaly. The pulmonary vascularity is normal. The lungs are clear. There are no effusions or pneumothoraces. IMPRESSION: No acute abnormalities in the chest. Dictated by: Dictated on workstation # [id number]
[2020-06-04] MEDS ORDERED: proPOfol 200 MG/20 ML (DIPRIVAN) VIAL IV ONE (10:59)
[2020-06-04] MEDS ORDERED: NS IV 1000 ML 1,000 ML IV SCH (12:15)
[2020-06-04] MEDS ORDERED: PATIENT MAY USE OWN MEDS, ALL PO SCH (12:15)
--- NOTE | 2020-06-04 12:15 | ICD Implantation ---
Single Chamber ICD Implant DATE OF SERVICE: 40 male SINGLE CHAMBER ICD IMPLANTATION PIZZAMAKER: Flora Enciso INDICATION: Primary prevention for severe cardiomyopathy HISTORY: ICD implantation is recommended. PROCEDURE PERFORMED: 1. Single-chamber ICD implantation. 2. Implantable loop recorder explantation. 3. Venogram. 4. DFT testing. COMPLICATIONS: None. ESTIMATED BLOOD LOSS: 20 mL. SPECIMENS: None. ANESTHESIA: Conscious sedation. ORAL ANTICOAGULATION: None. FLUOROSCOPY TIME: FLUOROSCOPY DOSE: CONTRAST DOSE: PROCEDURE DETAILS: After all the questions were answered, an informed consent was taken. All the risks and complication were explained in detail. The patient was brought to the EP lab. The patient's right and left chest was prepped and draped in the usual sterile fashion. A 2-inch horizontal incision was made 1 cm below the clavicle and dissection carried down to the pectoralis fascia. IV antibiotics were administered prior to first incision. Under fluoroscopic guidance, access was gained in the axillary vein and a regular J-wire was placed. We then introduced a sheath into the axillary vein. A ICD lead was inserted. This is a single- coiled ICD lead. The RV lead was inserted across the tricuspid valve to an apical septal portion of the RV. The lead position was checked in WOLOF and ROONEY view. The screw was deployed and lead connected to the server programmer. Good sensing and pacing thresholds were obtained. Diaphragmatic pacing was ruled out. The lead was secured with 2-0 Vicryl nonabsorbable sutures. The lead was secured to the underlying muscle and fascia. We then took an ICD generator and the lead was connected to the device in a hermetic fashion. The device and it was placed in the pocket. Aggressive irrigation with normal saline solution was done. Interrogation of the device revealed good integrity of the leads and c onnection. The wound was closed using 2 layers. The first layer was an interrupted 2-0 Vicryl. DFT testing was successful in inducing ventricular fibrillation but was unable to terminate it. External shock was delivered. I reopened the pocket and released the ventricular lead and extracted the lead and readjusted it to a new position, good sensing and capture activity, lead was secured then connected to the device and I placed the device in the pocket and did DFT testing again, the results were satisfactory, I closed the pocket after securing the lead well. Repeated DFT testing for the third time to ensure success in terminating ventricular fibrillation and device was successful. The second layer was an uninterrupted 4-0 Vicryl suture. Half inch Steri-Strips and a small dressing was then applied to the wound. DFT testing was done with anesthesia support. The induction mechanism was a T- shock. The first T-shock was at 300 milliseconds at one joule. Ventricular fibrillation was detected, shock was delivered and it was unsuccessful in terminating, second shock was unsuccessful, external shock was delivered. Attempted again without success. The lead was released and readjusted and repositioned, good sensing and capture activity, another attempt was made and it was successful in terminating ventricular fibrillation after repositioning of the lead. The pocket was closed and patient was still sedated and delivered 1 more testing and it was successful in terminating ventricular fibrillation with receiving impedance 43, energy 30, charge time 4.7, the pathway was Box to the apex DEVICE INFORMATION: COBALT XT VR MRI [employer] [id number] Single-chamber lead Med[employer] with serial number [id number] DEVICE INTERROGATION IMMEDIATELY POSTOP: Bipolar lead threshold 0.4 ms at 0.5 V, impedance 456 ohms, R wave measured 12.4 mV PLAN: The patient will be observed for 23 hours. We will continue with two more dosages of IV antibiotics. We will check a chest x-ray and interrogate the device in the morning. An EKG will be done as well. If everything checks out, the patient will be discharged tomorrow. CONCLUSION: 1. Successful single-chamber ICD implantation with no complication 2. Failed initial DFT testing, required reopening the pocket and adjustment of the lead position and retesting which was successful in terminating ventricular fibrillation FINAL DIAGNOSIS: Congestive heart failure, chronic compensated left ventricular systolic dysfunction, nonischemic cardiomyopathy Hypertension FLORA ENCISO MD Jun 04, 2020 12:15
--- NOTE | 2020-06-04 13:19 | Anesthesia-General Post-Op ---
MAC Patient Condition Mental Status/LOC: Same as Preop Cardiovascular: Satisfactory Nausea/Vomiting: Absent Respiratory: Satisfactory Pain: Controlled Complications: Absent Post Op Complications Complications None Follow Up Care/Instructions Patient Instructions None needed. Anesthesiology Discharge Order Discharge Order Patient is doing well, no complaints, stable vital signs, no apparent adverse anesthesia problems. TRACY MERRILL DO Jun 04, 2020 13:19
--- NOTE | 2020-06-04 13:46 | Diagnostic Imaging Report ---
EXAMINATION: Portable erect AP chest at 12:31 p.m. INDICATION: Pacemaker insertion. In the interval since the exam performed earlier today at 10:25 a.m. a left-sided defibrillator device has been inserted. The tip of the lead overlies the right ventricle and seems to be in good position. There is no sign of a pneumothorax. The enlarged cardiac silhouette seen previously is again visualized and unchanged. The lungs seem generally clear although left retrocardiac region is not well penetrated. The mediastinum is not widened. The osseous structures are intact. IMPRESSION: 1. There has been interval insertion of a left-sided defibrillator device without apparent complication. 2. There is no acute cardiopulmonary abnormality identified otherwise. Dictated by: Dictated on workstation # [id number]
[2020-06-04] MEDS: ceFAZolin INJECTION 1,000 MG in WATER (STERILE) FOR INJECTION 10 ML IV SCH ×2 (15:34→21:41)
[2020-06-04] MEDS ORDERED: oxyCODONE/APAP 5/325MG (PERCOCET 5) TABLET ONE (16:16)
[2020-06-04] MEDS: oxyCODONE/APAP 5/325MG (PERCOCET 5) TABLET PO PRN ×2 (16:24→20:27)
[2020-06-05 04:41] LABS: HEMOGLOBIN 11.5 g/dL (13.3-17.7); WHITE BLOOD COUNT 5.6 10^3/uL (4.3-11.0)
[2020-06-05 04:51] LABS: ALBUMIN 3.3 GM/DL (3.2-4.5); CHLORIDE 100 MMOL/L (98-107); POTASSIUM 4.1 MMOL/L (3.6-5.0); SODIUM 134 MMOL/L (135-145)
[2020-06-05 04:52] LABS: CALCIUM 8.4 MG/DL (8.5-10.1)
[2020-06-05 04:53] LABS: GLUCOSE 115 MG/DL (70-105); TOTAL PROTEIN 6.5 GM/DL (6.4-8.2)
[2020-06-05 04:54] LABS: CARBON DIOXIDE 25 MMOL/L (21-32)
[2020-06-05 04:55] LABS: BILIRUBIN,TOTAL 1.3 MG/DL (0.1-1.0)
[2020-06-05 04:57] LABS: ALKALINE PHOSPHATASE 114 U/L (40-136); CREATININE SERUM 1.25 MG/DL (0.60-1.30); GFR ESTIMATED > 60
[2020-06-05 04:58] LABS: BUN/CREATININE RATIO 12
[2020-06-05 05:00] LABS: ALANINE AMINOTRANSFERASE 31 U/L (0-55)
[2020-06-05] MEDS: ceFAZolin INJECTION 1,000 MG in WATER (STERILE) FOR INJECTION 10 ML IV SCH (05:36)
[2020-06-05] MEDS ORDERED: CEFU500T63 PO (06:11)
--- NOTE | 2020-06-05 06:11 | Discharge Inst-Post CATH ---
Discharge Inst-CATH/EP Problems Reviewed?: Yes Post Cardiac Cath/EP D/C Inst Follow Up/Plan Appointment with Dr Enciso next week <b>CARDIAC CATH/EP PROCEDURE DISCHARGE INSTRUCTIONS</b> ACTIVITY * Go Home directly and rest. * Limit activity of the leg (or wrist if it was used) for 7 days including aerobics, swimming, jogging, bicycling, etc. * Restrict stair-climbing for 7 days if possible, if not, climb up with your non-cath leg, then bring together on the same step. * Avoid lifting, pushing, pulling or excessive movement of the affected extremity for 7 days. * Customary sexual activity may be resumed after 2 days-use caution not to use a position that strains or causes pain to the affected extremity. * No driving for 24 hours. * NO SMOKING. * Avoid straining for bowel movements for 7 days. * Gentle walking on level ground is allowed. * Returning to work will depend on the type of procedure and the results. Your doctor will discuss this with you. CALL YOUR DOCTOR FOR ANY OF THE FOLLOWING: *If bleeding from the puncture site occurs- Apply gentle pressure to site with clean cloth and call your doctor or EMS. * If a knot or lump forms under the skin, increases in size, or causes pain. * If bruising appears to be worsening or moving further down your leg instead of disappearing. * Temperature above 101 F. CARE OF YOUR GROIN INCISION; * Bruising or purple discoloration of the skin near the puncture site is common. * You may shower only, no bathtub bathing for 5 days. Be careful to avoid slipping as your leg may feel stiff. * If a closure device was used on your femoral artery, please see the attached guide regarding care of the device and your leg. * Leave dressing on FOR 24 hours. CARE OF YOUR WRIST INCISION; * Bruising or purple discoloration of the skin near the puncture site is common. * You may shower. * DO NOT submerge wrist. * Leave dressing on FOR 24 hours. FLORA ENCISO MD Jun 05, 2020 06:11
[2020-06-05] MEDS ORDERED: OXYC1TAB87 PO (08:14)
[2020-06-05] MEDS: oxyCODONE/APAP 5/325MG (PERCOCET 5) TABLET PO PRN (08:27)
[2020-06-05] MEDS ORDERED: ASPIRIN E.C. 81 MG (ECOTRIN) TAB PO SCH (09:00)
[2020-06-05] MEDS ORDERED: FUROSEMIDE 40 MG (LASIX) TAB PO SCH (09:00)
[2020-06-05] MEDS ORDERED: KCL 10 MEQ TAB (MICRO K) PO SCH (09:00)
[2020-06-05] MEDS ORDERED: CARVEDILOL 6.25 MG (COREG) TAB PO SCH (09:00)
[2020-06-05] MEDS ORDERED: LOSARTAN 25 MG (COZAAR) TAB PO SCH (09:00)
[2020-06-05] MEDS ORDERED: PANTOPRAZOLE 40 MG (PROTONIX) TAB PO SCH (09:00)
--- NOTE | 2020-06-05 09:15 | Cardiology Progress Note ---
Subjective Date Seen by Provider: Jun 05, 2020 Time Seen by Provider: 09:14 Subjective/Events-last exam Patient is laying down in bed, having pain at the insertion site. Site appears to be healing well. Review of Systems General: No Chills, No Night Sweats, No Fatigue, No Malaise, No Appetite, No Other HEENT: No Head Aches, No Visual Changes, No Eye Pain, No Ear Pain, No Dysphasia, No Sinus Congestion, No Post Nasal Drip, No Sore Throat, No Other Pulmonary: No Dyspnea, No Cough, No Pleuritic Chest Pain, No Other Cardiovascular: No: Chest Pain, Palpitations, Orthopnea, Paroxysmal Noc. Dyspnea, Edema, Lt Headedness, Other Objective-Cardiology Exam Last Set of Vital Signs Vital Signs 06/04/20 06/05/20 15:23 07:29 Temp 36.4 Pulse 92 Resp 26 B/P (MAP) 137/103 (114) Pulse Ox 97 O2 Delivery Room Air O2 Flow Rate 2.00 Capillary Refill : I&O Intake and Output 06/05/20 00:00 Intake Total 1325 ml Output Total 250 ml Balance 1075 ml Intake Oral 1325 ml Output Urine Total 250 ml General: Alert, Oriented X3, Cooperative HEENT: Atraumatic, PERRLA Neck: Supple, No JVD, No Thyromegaly Lungs: Clear to Auscultation, Normal Air Movement Heart: Regular Rate, Normal S1, Normal S2, No Murmurs Abdomen: Normal Bowel Sounds, Soft, No Tenderness, No Hepatosplenomegaly, No Masses Extremities: No Clubbing, No Cyanosis, No Edema, Normal Pulses, No Tenderness/Swelling Skin: No Rashes, No Breakdown, No Significant Lesion Neuro: Normal Gait, Normal Speech, Strength at 5/5 X4 Ext, Normal Tone, Sensation Intact Psych/Mental Status: Mental Status NL, Mood NL Results Lab Laboratory Tests 06/04/20 09:34 06/05/20 03:50 A/P-Cardiology Admission Diagnosis Congestive heart failure, chronic compensated left ventricular systolic dysfunction, nonischemic cardiomyopathy Hypertension Assessment/Plan Congestive heart failure, chronic compensated left ventricular systolic dysfunction, nonischemic cardiomyopathy, continue to maximize medical therapy Status post single-chamber ICD implant with DFT testing, site is healing well, interrogated today, good sensing and capture activity. Hypertension, poor control, restarted home medication Pain and discomfort at the surgical site requesting pain medication, I will give him Percocet for total of 10 pills. FLORA MAGDALENO MD Jun 05, 2020 09:15
== END 2020-06-05 12:45 ==
LOC: SDC 08:42 → CSD 12:45 → CATH 06-05 12:45
PROVIDERS: ATTEND Internal Medicine Cardiovascular Disease
DX: I11.0 Hypertensive heart disease with heart failure (principal); I50.22 Chronic systolic (congestive) heart failure; I42.8 Other cardiomyopathies; I69.30 Unspecified sequelae of cerebral infarction; I45.10 Unspecified right bundle-branch block; I49.3 Ventricular premature depolarization; I45.89 Other specified conduction disorders; Z79.82 Long term (current) use of aspirin; E78.5 Hyperlipidemia, unspecified; J45.909 Unspecified asthma, uncomplicated; K21.9 Gastro-esophageal reflux disease without esophagitis; Z79.899 Other long term (current) drug therapy; Z80.9 Family history of malignant neoplasm, unspecified; Z81.8 Family history of other mental and behavioral disorders; Z98.890 Other specified postprocedural states
CPT/HCPCS: 33249; 71045; 80053 ×2; 80061; 85027; 85610; 85730; 87081; 93005 ×2; 93641; C1722; C1895; 36415

== ENCOUNTER 2020-06-08 19:51 | Emergency (ER) | payer OTHER ==
[~2020-06-08] VITALS: Ht 172.2 cm; Wt 97.2 kg
[~2020-06-08 19:51] MED LIST changes: +CEFU500T63 PO; +FURO40TA4 PO; +OXYC1TAB87 PO
[2020-06-08] MEDS ORDERED: ONDANSETRON 4 MG/2 ML (SDV) Z0FRAN IVP ONE (20:00)
[2020-06-08 20:09] LABS: BASOPHILS # (AUTO) 0.1 10^3/uL (0.0-0.1); BASOPHILS % (AUTO) 1 % (0-10); EOSINOPHILS # (AUTO) 0.3 10^3/uL (0.0-0.3); EOSINOPHILS % (AUTO) 3 % (0-10); HEMATOCRIT 44 % (40-54); HEMOGLOBIN 13.3 g/dL (13.3-17.7); LYMPHOCYTES # (AUTO) 1.2 10^3/uL (1.0-4.0); LYMPHOCYTES % (AUTO) 14 % (12-44); MEAN CORPUSCULAR HEMOGLOBIN 26 pg (25-34); MEAN CORPUSCULAR HGB CONC 31 g/dL (32-36); MEAN CORPUSCULAR VOLUME 84 fL (80-99); MEAN PLATELET VOLUME 10.1 fL (9.0-12.2); MONOCYTES # (AUTO) 0.6 10^3/uL (0.0-1.0); MONOCYTES % (AUTO) 7 % (0-12); NEUTROPHILS # (AUTO) 6.7 10^3/uL (1.8-7.8); NEUTROPHILS % (AUTO) 76 % (42-75); PLATELET COUNT 273 10^3/uL (130-400); WHITE BLOOD COUNT 8.8 10^3/uL (4.3-11.0)
[2020-06-08 20:21] LABS: INR 1.3 (0.8-1.4); PROTHROMBIN TIME PATIENT 16.8 SEC (12.2-14.7)
--- NOTE | 2020-06-08 20:23 | Diagnostic Imaging Report ---
EXAMINATION: Chest radiograph, portable AP view. DATE: 06/08/2020 8:12 PM INDICATION: 40-year-old male, chest pain, cough. COMPARISON: June 04, 2020. FINDINGS: There is a left-sided cardiac assist device with a lead. The lead appears intact. There is redemonstrated and unchanged cardiomegaly. There is no identified pneumothorax. There is no large pleural effusion. There is no identified focal airspace consolidation. IMPRESSION: 1. Stable cardiomegaly without identified acute cardiopulmonary abnormality. Dictated by: Dictated on workstation # [id number]
--- NOTE | 2020-06-08 20:26 | ED General ---
General Chief Complaint: General Problems/Pain Stated Complaint: N/V, PACEMAKER POST 3 DAYS Source of Information: Patient (DIFFICULT HISTORIAN), Old Records History of Present Illness Date Seen by Provider: Jun 08, 2020 Time Seen by Provider: 19:50 Initial Comments PT ARRIVES VIA POV FROM HOME PT HAD A DEFIBRILLATOR PLACED BY DR. MAGDALENO ON 06/04/20 C/O PAIN AT SURGICAL SITE--ONLY WHEN HE COUGHS. STATES HE IS NOT HAVING PAIN ANYWHERE ELSE OR AT ANY OTHER TIME EXCEPT DUE TO COUGH. STATES HE HAS BEEN COUGHING SINCE THIS MORNING ALSO C/O ABDOMINAL CRAMPING AND PAIN WITH COUGHING SINCE THIS MORNING C/O NAUSEA AND VOMITING/DRY HEAVES WITH COUGHING SINCE THIS MORNING C/O FEELING SHORT OF BREATH DUE TO PAIN AND COUGHING STATES APPLEJUICE STAYS DOWN, ATE CHICKEN ON THE WAY HERE AND IT DID NOT STAY DOWN. HAD A NORMAL BM TODAY NO FEVER NO URINARY SYMPTOMS PT HAS LONG HISTORY OF NON-ISCHEMIC CARDIOMYOPATHY WITH CHRONIC CHF PT WITH LONG HISTORY OF NON-COMPLIANCE--SEE OLD CHARTS FOR DETAILS PT DOES HAVE HISTORY OF ASTHMA, BUT HAS BEEN OUT OF ALBUTEROL INHALER FOR "AWHILE" WAS PRESCRIBED PERCOCET FOR PAIN, BUT HAS NOT TAKEN ANY TODAY ALSO PRESCRIBED CEFUROXIME POST OP--DENIES ANY MISSED DOSES OF THIS OR ANY OTHER MEDICATIONS PT DENIES ANY RECENT USE OF DRUGS OR ALCOHOL PCP: [facility] WATER ENGINEER: DR. MAGDALENO Allergies and Home Medications Allergies Coded Allergies: No Known Drug Allergies (Unverified , 10/05/19) Home Medications Aspirin 81 Mg Tablet.dr, 81 MG PO DAILY, (Reported) Carvedilol 3.125 Mg Tablet, 6.25 MG PO BID, (Reported) Cefuroxime Axetil 500 Mg Tablet, 500 MG PO BID Prescribed by: FLORA MAGDALENO on 06/05/20 0611 Furosemide 40 Mg Tablet, 40 MG PO DAILY, (Reported) Hyoscyamine Sulfate 0.125 Mg Tab.subl, 0.25 MG SL Q4H Prescribed by: VALERIE BROWN on 06/08/202202 Losartan Potassium 25 Mg Tablet, 50 MG PO DAILY, (Reported) Oxycodone HCl/Acetaminophen 1 Each Tablet, 1 TAB PO Q4H PRN for PAIN-MODERATE (5-7) Prescribed by: FLORA MAGDALENO on 06/05/20 0814 Pantoprazole Sodium 40 Mg Tablet.dr, 40 MG PO DAILY, (Reported) Potassium Chloride 10 Meq Tablet.er, 5 MEQ PO BID, (Reported) TAKES OF A 10MEQ Patient Home Medication List Home Medication List Reviewed: Yes Review of Systems Review of Systems Constitutional: no symptoms reported Respiratory: see HPI, cough, short of breath Cardiovascular: see HPI, chest pain, edema (NOT MUCH USUAL); No palpitations Gastrointestinal: see HPI, abdominal pain, nausea, vomiting Genitourinary: no symptoms reported Musculoskeletal: no symptoms reported Skin: no symptoms reported Psychiatric/Neurological: Anxiety Hematologic/Lymphatic: No Symptoms Reported Immunological/Allergic: no symptoms reported Past Yyrnwdp-Xgzdpc-Uzbqld Hx Past Med/Social Hx: Reviewed and Corrections made Patient Social History Drug of Choice: HX OF METH USE NONE SINCE NOV 2019 2nd Hand Smoke Exposure: No Recent Hopitalizations: No Substance type: Methamphetamine, Marijuana, Other (COCAINE) Immunizations Up To Date Tetanus Booster (TDap): Unknown Date of Pneumonia Vaccine: Dec 07, 2018 Date of Influenza Vaccine: Dec 06, 2019 Seasonal Allergies Seasonal Allergies: Yes (USE INHALER) Past Medical History Surgeries: Yes (CARDIAC CATH 11/2019--NO INTERVENTION;ICD/DEFIBRILLATOR 06/04/20) Cardiac, Defibrillator Respiratory: Yes Asthma Currently Using CPAP: No Currently Using BIPAP: No Cardiac: Yes (CHF-NEEDS LIFEVEST/REFUSES TO WEAR;NSTEMI;EF10%;LBBB;DEFIBRILLATOR 06/04/20) Cardiomyopathy, Chronic Edema/Swelling, Coronary Artery Disease, Heart Attack, High Cholesterol, Hypertension Neurological: Yes Stroke Sexually Transmitted Disease: Yes (CHLAMYDIA; GONORRHEA 10/05/19) Genitourinary: No Gastrointestinal: No Musculoskeletal: No Endocrine: No HEENT: No Cancer: No Psychosocial: Yes (SUBSTANCE ABUSE) Integumentary: No Blood Disorders: No Family Medical History Asthma AUNT Hypertension MOTHER No Pertinent Family Hx HAS BEEN OUT OF [facility] SINCE 2018 VERY NON-COMPLIANT IN ALL ASPECTS OF CARE NEEDS LIFE VEST-=-REFUSES TO WEAR; NSTEMI; EF 10%; LBBB ICD/DEFIBRILLATOR PLACED BY DR. MAGDALENO 06/04/20 SOCIAL HISTORY: -ETOH-RARELY USES -DRUGS--METH, COCAINE, THC. DENIES IV USE-STATES HE SMOKES THEM -NO TOBACCO PAST SURGICAL HISTORY: -CARDIAC CATH 11/2019--NO INTERVENTION -ICD DEFIBRILLATOR PLACED 06/04/[address] MAGDALENO ECHOCARDIOGRAM 05/17/2020 Physical Exam Vital Signs Vital Signs - First Documented 06/08/20 20:00 Temp 35.9 Pulse 113 Resp 20 B/P (MAP) 181/118 (139) Pulse Ox 94 Capillary Refill : Height, Weight, BMI Height: '" Weight: lbs. oz. kg; 26.72 BMI Method: General Appearance: Other (PT EXTREMELY DRAMATIC AND COMPLETELY HYSTERICAL ON ARRIVAL, HYPERVENTILATING, CLUTCHING HIS CHEST AND ABDOMEN. ) Neck: Full Range of Motion, Normal Inspection, Non Tender, Supple Respiratory: Rales (RIGH T> LEFT BASES), Wheezing (FAINT EXPIRATORY WHEEZING BILATERALLY), Other (HYPERVENTILATING-UNABLE TO TALK ON ARRIVAL DUE TO THIS; LEFT UPPER CHEST WITH DRESSINGS AND STERI-STRIPS IN PLACE. NO SIGNS OF BLEEDING OR INFECTION. MILD SURROUNDING TENDERNESS. ) Cardiovascular: No Murmur, Tachycardia Gastrointestinal: No Organomegaly, No Pulsatile Mass, Soft, Tenderness (DIFFUSE TENDERNESS) Extremity: Normal Range of Motion, No Calf Tenderness, Pedal Edema (TRACE TO 1+ EDEMA BILATERALLY) Neurologic/Psychiatric: Alert, Oriented x3, No Motor/Sensory Deficits, shipping & receiving lead II- XII Norm as Tested Skin: Normal Color (PT IS BLACK), Warm/Dry; No Rash Progress/Results/Core Measures Suspected Sepsis SIRS Temperature: Pulse: Respiratory Rate: Laboratory Tests 06/08/20 20:00: White Blood Count 8.8 Blood Pressure / Mean: Laboratory Tests 06/08/20 20:00: Creatinine 1.33H, INR Comment 1.3, Platelet Count 273, Total Bilirubin 2.4H Results/Orders Lab Results Laboratory Tests Test 06/08/20 20:00 06/08/20 20:23 Range/Units White Blood Count 8.8 4.3-11.0 10^3/uL Red Blood Count 5.18 4.30-5.52 10^6/uL Hemoglobin 13.3 13.3-17.7 g/dL Hematocrit 44 40-54 % Mean Corpuscular Volume 84 80-99 fL Mean Corpuscular Hemoglobin 26 25-34 pg Mean Corpuscular Hemoglobin Concent 31 L 32-36 g/dL Red Cell Distribution Width 18.0 H 10.0-14.5 % Platelet Count 273 130-400 10^3/uL Mean Platelet Volume 10.1 9.0-12.2 fL Immature Granulocyte % (Auto) 0 % Neutrophils (%) (Auto) 76 H 42-75 % Lymphocytes (%) (Auto) 14 12-44 % Monocytes (%) (Auto) 7 0-12 % Eosinophils (%) (Auto) 3 0-10 % Basophils (%) (Auto) 1 0-10 % Neutrophils # (Auto) 6.7 1.8-7.8 10^3/uL Lymphocytes # (Auto) 1.2 1.0-4.0 10^3/uL Monocytes # (Auto) 0.6 0.0-1.0 10^3/uL Eosinophils # (Auto) 0.3 0.0-0.3 10^3/uL Basophils # (Auto) 0.1 0.0-0.1 10^3/uL Immature Granulocyte # (Auto) 0.0 0.0-0.1 10^3/uL Prothrombin Time 16.8 H 12.2-14.7 SEC INR Comment 1.3 0.8-1.4 Activated Partial Thromboplast Time 29 24-35 SEC Sodium Level 137 135-145 MMOL/L Potassium Level 4.1 3.6-5.0 MMOL/L Chloride Level 101 98-107 MMOL/L Carbon Dioxide Level 22 21-32 MMOL/L Anion Gap 14 5-14 MMOL/L Blood Urea Nitrogen 14 7-18 MG/DL Creatinine 1.33 H 0.60-1.30 MG/DL Estimat Glomerular Filtration Rate > 60 BUN/Creatinine Ratio 11 Glucose Level 111 H 70-105 MG/DL Calcium Level 8.8 8.5-10.1 MG/DL Corrected Calcium 9.1 8.5-10.1 MG/DL Magnesium Level 1.8 1.6-2.4 MG/DL Total Bilirubin 2.4 H 0.1-1.0 MG/DL Aspartate Amino Transf (AST/SGOT) 45 H 5-34 U/L Alanine Aminotransferase (ALT/SGPT) 24 0-55 U/L Alkaline Phosphatase 134 40-136 U/L Troponin I 0.057 H <0.028 NG/ML B-Type Natriuretic Peptide 3426.4 H <100.0 PG/ML Total Protein 7.4 6.4-8.2 GM/DL Albumin 3.6 3.2-4.5 GM/DL Amylase Level 44 25-125 U/L TSH [employer] Testing 1.52 0.35-4.94 UIU/ML Urine Color ORANGE Urine Clarity CLEAR Urine pH 6.0 5-9 Urine Specific [place] >=1.030 1.016-1.022 Urine Protein 3+ H NEGATIVE Urine Glucose (UA) NEGATIVE NEGATIVE Urine Ketones NEGATIVE NEGATIVE Urine Nitrite NEGATIVE NEGATIVE Urine Bilirubin NEGATIVE NEGATIVE Urine Urobilinogen 1.0 < = 1.0 MG/DL Urine Leukocyte Esterase NEGATIVE NEGATIVE Urine RBC (Auto) 1+ H NEGATIVE Urine RBC 0-2 /HPF Urine WBC 5-10 H /HPF Urine Squamous Epithelial Cells 0-2 /HPF Urine Crystals NONE /LPF Urine Bacteria NEGATIVE /HPF Urine Casts PRESENT /LPF Urine Hyaline Casts 10-25 H /LPF Urine Mucus SMALL H /LPF Urine Culture Indicated NO Urine Opiates Screen NEGATIVE NEGATIVE Urine Oxycodone Screen NEGATIVE NEGATIVE Urine Methadone Screen NEGATIVE NEGATIVE Urine Propoxyphene Screen NEGATIVE NEGATIVE Urine Barbiturates Screen NEGATIVE NEGATIVE Ur Tricyclic Antidepressants Screen NEGATIVE NEGATIVE Urine Phencyclidine Screen NEGATIVE NEGATIVE Urine Amphetamines Screen NEGATIVE NEGATIVE Urine Methamphetamines Screen NEGATIVE NEGATIVE Urine Benzodiazepines Screen NEGATIVE NEGATIVE Urine Cocaine Screen NEGATIVE NEGATIVE Urine Cannabinoids Screen NEGATIVE NEGATIVE My Orders Orders - VALERIE BROWN DO Ed Iv/Invasive Line Start (06/08/20 19:59) Ekg Tracing (06/08/20 19:59) O2 (06/08/20 19:59) Monitor-Rhythm Ecg Trace Only (06/08/20 19:59) Amylase (06/08/20 19:59) BNP (06/08/20 19:59) Cbc With Automated Diff (06/08/20 19:59) Comprehensive Metabolic Panel (06/08/20 19:59) Drug Screen Stat (Urine) (06/08/20 19:59) Magnesium (06/08/20 19:59) Protime With Inr (06/08/20 19:59) Partial Thromboplastin Time (06/08/20 19:59) Thyroid Analyzer (06/08/20 19:59) Ua Culture If Indicated (06/08/20 19:59) Troponin I (06/08/20 19:59) Chest 1 View, Ap/Pa Only (06/08/20 19:59) Ondansetron Injection (Zofran Injectio (06/08/20 20:00) Fluticasone/Salmeterol 115/21 (Advair Hf (06/08/20 21:00) Albuterol/Ipratropium Inhaler (Combivent (06/08/20 21:00) Rt Request For Service (06/08/20 20:22) Fluticasone/Salmeterol 113-14 (Airduo Re (06/08/20 21:00) Furosemide Injection (Lasix Injection) (06/08/20 20:45) Ct Angio Chst/Abd/Pelv W (06/08/20 20:41) Iohexol Injection (Omnipaque 350 Mg/Ml 1 (06/08/20 21:15) Received Contrast (Hold Metformin- Contr (06/08/20 21:15) Ns (Ivpb) (Sodium Chloride 0.9% Ivpb Bag (06/08/20 21:15) Medications Given in ED Current Medications Medications Dose Ordered Sig/Nelly Route Start Time Stop Time Status Last Admin Dose Admin Furosemide 80 mg ONCE ONCE IVP 06/08/20 20:45 06/08/20 20:46 DC 06/08/20 20:47 80 MG Iohexol 100 ml ONCE ONCE IV 06/08/20 21:15 06/08/20 21:16 DC 06/08/20 21:21 100 ML Ondansetron HCl 8 mg ONCE ONCE IVP 06/08/20 20:00 06/08/20 20:01 DC 06/08/20 20:10 8 MG Sodium Chloride 80 ml ONCE ONCE IV 06/08/20 21:15 06/08/20 21:16 DC 06/08/20 21:21 80 ML Vital Signs/I&O 06/08/20 06/08/20 20:00 22:13 Temp 35.9 36.2 Pulse 113 113 Resp 20 24 B/P (MAP) 181/118 (139) 131/98 (139) Pulse Ox 94 94 Capillary Refill : Progress Note : Progress Note PT CALMED SHORTLY AFTER ARRIVAL, NO LONGER HYPERVENTILATING AND IS ABLE TO TALK AND ANSWER QUESTIONS GAVE LASIX IV WITH 2825 ML URINE OUTPUT ALSO GAVE FLUTICASONE + SALMETEROL INHALER TREATMENT--PT STATES IT HELPED GREATLY NO COMPLAINTS FOR REMAINDER OF ER STAY BP AND HEART RATE DOWN AT TIME OF DISMISSAL O2 SATS IN MID 90'S TO 100% ON ROOM AIR PT DOES NOT WANT TO BE ADMITTED, AND FEELS COMFORTABLE GOING HOME ECG Initial ECG Impression Date: Jun 08, 2020 Initial ECG Impression Time: 20:03 Initial ECG Rate: 116 Initial ECG Rhythm: S.Tach (LBBB) Initial ECG Comparisson: Unchanged Diagnostic Imaging Comments CXR--PER RADIOLOGIST REPORT AT 2025 FINDINGS: There is a left-sided cardiac assist device with a lead. The lead appears intact. There is redemonstrated and unchanged cardiomegaly. There is no identified pneumothorax. There is no large pleural effusion. There is no identified focal airspace consolidation. IMPRESSION: 1. Stable cardiomegaly without identified acute cardiopulmonary abnormality. CT ANGIOGRAM CHEST/ABDOMEN-PELVIS--PER RADIOLOGIST REPORT AT 2142 FINDINGS: Pacer device is present overlying the left chest, new since prior examination. No significant adenopathy in the chest. The heart is severely enlarged, appearing similar to the prior examination. Moderate sized pericardial effusion is present, particularly on the right. This has worsened since the prior examination. Small left and trace right bibasilar pleural effusions are present, improved since the prior examination. No pneumothorax. Patchy groundglass opacities are identified within the lungs, particularly within the right upper lobe anteriorly. These appear to be in a different location than the prior examination and overall improved since the prior examination. Enlargement of the left pectoralis major muscle. The trachea is patent. No aneurysm or dissection of the thoracic aorta. No significant filling defect within the central or segmental pulmonary arteries. Evaluation of subsegmental pulmonary arteries is significantly limited secondary to patient motion and spray artifact. No acute osseous abnormality with chest. Reflux of contrast into the hepatic veins. The liver is otherwise unremarkable. The spleen is unremarkable. The adrenal glands are unremarkable. The pancreas is unremarkable. The gallbladder is predominantly decompressed, but otherwise unremarkable. The kidneys are unremarkable. No aneurysmal dilatation or dissection of the abdominal aorta. The urinary bladder is unremarkable. No bowel obstruction or pneumatosis. No significant adenopathy or free air. Small amount of free fluid in the lower pelvis. No acute osseous abnormality in abdomen or pelvis. IMPRESSION: No significant pulmonary embolus, aortic dissection, or aortic aneurysm. Moderate sized pericardial effusion, increased in size since the prior examination. This is associated with significant cardiomegaly. Interval placement of a pacer device overlying the left chest with enlargement of the left pectoralis major muscle, which is likely postsurgical in nature. Patchy groundglass opacities within the right upper lobe. It is favored this relates to pulmonary edema, particularly given the reflux of contrast in the hepatic veins, pleural effusions and pericardial effusion. Infectious etiology such as COVID 19 could be an additional consideration though felt less likely. Reviewed: Reviewed by Me Departure Communication (Admissions) 681--SPOKE WITH DR. PERLA, WATER ENGINEER STOCK CHECKER. ADVISES THAT ELEVATED TROPONIN IS LIKELY DUE TO CHRONIC CHF, AND RECENT DEFIBRILLATOR PLACEMENT, PT IS ASYMPTOMATIC AT THIS TIME. Impression Primary Impression: EXACERBATION OF CHRONIC CHF Additional Impressions: Anxiety hyperventilation POSSIBLE ASTHMA EXACERBATION S/P RECENT DEFIBRILLATOR PLACEMENT Elevated troponin Abdominal pain Disposition: HOME, SELF-CARE Condition: Improved Departure-Patient Inst. Referrals: FLORA MAGDALENO MD NO,LOCAL PHYSICIAN (PCP) Primary Care Physician [facility] [place] Patient Instructions: Abdominal Pain, Adult ED, Asthma, Adult (DC), CHF, Hyperventilation, Postoperative Pain (DC) Add. Discharge Instructions: CONTINUE YOUR MEDICATIONS PRESCRIBED USE INHALER NO MORE THAN EVERY 12 HOURS FOLLOW UP WITH DR. MAGDALENO THIS WEEK PRESCRIBED, RETURN TO ER IF SYMPTOMS WORSEN All discharge instructions reviewed with patient and/or family. Voiced understanding. Scripts Hyoscyamine Sulfate (Levsin-Sl) 0.125 Mg Tab.subl 0.25 MG SL Q4H, #15 TAB Prov: VALERIE BROWN DO 06/08/20 VALERIE BROWN DO Jun 08, 2020 20:26
[2020-06-08 20:29] LABS: ALANINE AMINOTRANSFERASE 24 U/L (0-55); ALBUMIN 3.6 GM/DL (3.2-4.5); ALKALINE PHOSPHATASE 134 U/L (40-136); AMYLASE 44 U/L (25-125); BILIRUBIN,TOTAL 2.4 MG/DL (0.1-1.0); BUN/CREATININE RATIO 11; CALCIUM 8.8 MG/DL (8.5-10.1); CARBON DIOXIDE 22 MMOL/L (21-32); CHLORIDE 101 MMOL/L (98-107); CREATININE SERUM 1.33 MG/DL (0.60-1.30); GFR ESTIMATED > 60; GLUCOSE 111 MG/DL (70-105); MAGNESIUM 1.8 MG/DL (1.6-2.4); POTASSIUM 4.1 MMOL/L (3.6-5.0); SODIUM 137 MMOL/L (135-145); TOTAL PROTEIN 7.4 GM/DL (6.4-8.2)
[2020-06-08 20:30] LABS: BILIRUBIN,URINE NEGATIVE (NEGATIVE); CLARITY,URINE CLEAR; COLOR,URINE ORANGE; GLUCOSE, URINE (UA) NEGATIVE (NEGATIVE); KETONES,URINE NEGATIVE (NEGATIVE); LEUKOCYTE ESTERASE ,URINE NEGATIVE (NEGATIVE); NITRITE,URINE NEGATIVE (NEGATIVE); PROTEIN,URINE 3+ (NEGATIVE)
[2020-06-08 20:37] LABS: BACTERIA,URINE NEGATIVE /HPF; RBC,URINE 0-2 /HPF; SQUAMOUS EPITHELIAL CELL,UR 0-2 /HPF
[2020-06-08 20:42] LABS: AMPHETAMINE SCREEN, URINE NEGATIVE (NEGATIVE); BARBITURATE SCREEN URINE NEGATIVE (NEGATIVE); BENZODIAZEPINES SCREEN URINE NEGATIVE (NEGATIVE); CANNABINOID SCREEN, URINE NEGATIVE (NEGATIVE); COCAINE SCREEN URINE NEGATIVE (NEGATIVE); METHADONE STAT NEGATIVE (NEGATIVE); METHAMPHETAMINE SCREEN URINE S NEGATIVE (NEGATIVE); OPIATE SCREEN URINE NEGATIVE (NEGATIVE); OXYCODONE STAT NEGATIVE (NEGATIVE); PROPOXYPHENE STAT NEGATIVE (NEGATIVE); TRICYCLIC ANTIDEPRESSANTS SCRE NEGATIVE (NEGATIVE)
[2020-06-08] MEDS ORDERED: FUROSEMIDE 40 MG/4 ML INJ (LASIX) IVP ONE (20:45)
[2020-06-08 20:49] LABS: TSH (THYROID ANALYZER) 1.52 UIU/ML (0.35-4.94)
[2020-06-08] MEDS ORDERED: ADVAIR HFA 115/21 MCG INHALER 8 GM IH ONE (21:00)
[2020-06-08] MEDS ORDERED: RT--FLUTICASONE/SALMETEROL 113-14 (AIRDUO RespiCLICK) IH SCH (21:00)
[2020-06-08] MEDS ORDERED: ALBUTEROL/IPRATROP (COMBIVENT RESPIMAT) 4 GM INHALER IH ONE (21:00)
[2020-06-08] MEDS ORDERED: HOLD METFORMIN - RECEIVED CONTRAST 20 ML VIAL IV SCH (21:15)
[2020-06-08] MEDS ORDERED: NS 100 ML (IVPB) BAG IV ONE (21:15)
[2020-06-08] MEDS ORDERED: IOHEXOL 350 MG/ML 100 ML (OMNIPAQUE 350) VIAL IV ONE (21:15)
--- NOTE | 2020-06-08 21:40 | Diagnostic Imaging Report ---
PROCEDURE: CT angiography of the chest with contrast and CT abdomen and pelvis with contrast. TECHNIQUE: Multiple contiguous axial images were obtained through the chest, abdomen and pelvis after administration of intravenous contrast. 3D MIP reconstructed CT angiography acquisitions of the aorta were then performed. Auto Exposure Controls were utilized during the CT exam to meet ALARA standards for radiation dose reduction. INDICATION: Chest and abdominal pain COMPARISON: 01/20/2020 FINDINGS: Pacer device is present overlying the left chest, new since prior examination. No significant adenopathy in the chest. The heart is severely enlarged, appearing similar to the prior examination. Moderate sized pericardial effusion is present, particularly on the right. This has worsened since the prior examination. Small left and trace right bibasilar pleural effusions are present, improved since the prior examination. No pneumothorax. Patchy groundglass opacities are identified within the lungs, particularly within the right upper lobe anteriorly. These appear to be in a different location than the prior examination and overall improved since the prior examination. Enlargement of the left pectoralis major muscle. The trachea is patent. No aneurysm or dissection of the thoracic aorta. No significant filling defect within the central or segmental pulmonary arteries. Evaluation of subsegmental pulmonary arteries is significantly limited secondary to patient motion and spray artifact. No acute osseous abnormality with chest. Reflux of contrast into the hepatic veins. The liver is otherwise unremarkable. The spleen is unremarkable. The adrenal glands are unremarkable. The pancreas is unremarkable. The gallbladder is predominantly decompressed, but otherwise unremarkable. The kidneys are unremarkable. No aneurysmal dilatation or dissection of the abdominal aorta. The urinary bladder is unremarkable. No bowel obstruction or pneumatosis. No significant adenopathy or free air. Small amount of free fluid in the lower pelvis. No acute osseous abnormality in abdomen or pelvis. IMPRESSION: No significant pulmonary embolus, aortic dissection, or aortic aneurysm. Moderate sized pericardial effusion, increased in size since the prior examination. This is associated with significant cardiomegaly. Interval placement of a pacer device overlying the left chest with enlargement of the left pectoralis major muscle, which is likely postsurgical in nature. Patchy groundglass opacities within the right upper lobe. It is favored this relates to pulmonary edema from congestive heart failure, particularly given the reflux of contrast in the hepatic veins, pleural effusions and pericardial effusion. Infectious etiology such as COVID 19 could be an additional consideration though felt less likely. Dictated by: Dictated on workstation # [id number]
[2020-06-08] MEDS ORDERED: HYOS0.1283 SL ×2 (22:02→22:03)
[2020-06-08 22:13] VITALS: BP 131/98
== END 2020-06-08 22:13 | disposition home or self-care (01) ==
LOC: EDUNIT# 19:51 → ER 19:52
DX: I11.0 Hypertensive heart disease with heart failure (principal); I50.33 Acute on chronic diastolic (congestive) heart failure; F45.8 Other somatoform disorders; R77.8 Other specified abnormalities of plasma proteins; G89.18 Other acute postprocedural pain; R10.84 Generalized abdominal pain; I25.2 Old myocardial infarction; I25.10 Atherosclerotic heart disease of native coronary artery without angina pectoris; J45.909 Unspecified asthma, uncomplicated; Z95.810 Presence of automatic (implantable) cardiac defibrillator; Z86.73 Personal history of transient ischemic attack (TIA), and cerebral infarction without residual deficits; Z79.82 Long term (current) use of aspirin; Z79.51 Long term (current) use of inhaled steroids
CPT/HCPCS: 36415; 71045; 71275; 74174; 80053; 80306; 81000; 82150; 83735; 83880; 84443; 84484; 85025; 85610; 85730; 93005; 93041

== ENCOUNTER 2020-07-15 10:18 | Inpatient (IN) | payer MEDICAID, OTHER ==
[~2020-07-15] VITALS: Ht 170 cm; Wt 79.2 kg
[~2020-07-15 10:18] MED LIST changes: +HYOS0.1283 SL
[2020-07-15] MEDS ORDERED: AMIODARONE (BOLUS) 150 MG/3 ML IV ONE (10:59)
[2020-07-15] MEDS ORDERED: ADENOSINE 6 MG/2 ML (ADENOCARD) VIAL IV ONE ×2 (11:00→11:03)
[2020-07-15] MEDS ORDERED: meTOprolol 5 MG/5 ML (LOPRESSOR) VIAL ONE (11:03)
--- NOTE | 2020-07-15 11:26 | Consultation-Cardiology ---
HPI-Cardiology Cardiology Consultation Date of Consultation 07/15/20 Date of Admission Time Seen by Provider: 11:21 Indication: Ventricular tachycardia HPI 40 years old gentleman with severe nonischemic cardiomyopathy, has single- chamber ICD. Started to have palpitation felt his heart racing, came into the emergency room for evaluation where he was noted to be in wide-complex ta chycardia. Multiple attempts were made while he was tachycardic, denied any chest pain or shortness of breath. No syncope. No treatment was delivered by his defibrillator. Home Medications & Allergies Allergies: Coded Allergies: No Known Drug Allergies (Unverified , 10/05/19) Home Medication List Reviewed: Yes [id number] Hx Patient Social History Marital Status: Drug of Choice: HX OF METH USE NONE SINCE NOV 2019 2nd Hand Smoke Exposure: No Recent Hopitalizations: No Immunizations Up To Date Tetanus Booster (TDap): Unknown Date of Pneumonia Vaccine: Dec 07, 2018 Date of Influenza Vaccine: Dec 06, 2019 Past Medical History Discussed below Family Medical History Significant Family History: No Pertinent Family Hx Family History: Asthma AUNT Hypertension MOTHER Review of Systems-General Review of Systems Constitutional: no symptoms reported, see HPI EENTM: see HPI, no symptoms reported Respiratory: see HPI; No cough, No dyspnea on exertion, No hemoptysis, No orthopnea, No phlegm, No short of breath, No stridor, No wheezing, No other Cardiovascular: see HPI; No chest pain, No edema, No Hx of Intervention; palpitations; No syncope, No vascular heart diseas, No other Gastrointestinal: no symptoms reported, see HPI Genitourinary: no symptoms reported, see HPI Musculoskeletal: no symptoms reported, see HPI Skin: no symptoms reported, see HPI Psychiatric/Neurological: No Symptoms Reported, See HPI Reviewed Test Results Reviewed Test Results Lab Labs are pending Physical Exam Physical Exam Vital Signs Capillary Refill : Height, Weight, BMI Height: '" Weight: lbs. oz. kg; 32.00 BMI Method: General Appearance: No Apparent Distress, WD/WN Eyes: Bilateral Eye Normal Inspection, Bilateral Eye PERRL, Bilateral Eye EOMI HEENT: PERRL/EOMI, TMs Normal, Normal ENT Inspection, Pharynx Normal, Moist Mucous Membranes Neck: Full Range of Motion, Normal Inspection, Non Tender, Supple, Carotid Bruit Respiratory: Chest Non Tender, Normal Breath Sounds, No Accessory Muscle Use, No Respiratory Distress Cardiovascular: Regular Rate, Rhythm, No Edema, No Gallop, No JVD, No Murmur, Normal Peripheral Pulses Gastrointestinal: Normal Bowel Sounds, No Organomegaly, No Pulsatile Mass, Non Tender, Soft Back: Normal Inspection, No CVA Tenderness, No Vertebral Tenderness Extremity: Normal Capillary Refill, Normal Inspection, Normal Range of Motion, Non Tender, No Calf Tenderness, No Pedal Edema Neurologic/Psychiatric: Alert, Oriented x3, No Motor/Sensory Deficits, Normal Mood/Affect Skin: Normal Color, Warm/Dry Lymphatic: No Adenopathy A/P-Cardiology Admission Diagnosis Ventricular tachycardia Congestive heart failure, chronic compensated left ventricular systolic dysfunction, nonischemic cardiomyopathy Hypertension Hyperlipidemia Assessment/Plan Wide-complex tachycardia, most probably ventricular tachycardia. Magnet was placed on his defibrillator without change in the rhythm. Adenosine 6 then 12 mg delivered without any change in the rhythm Amiodarone 150 mg bolus were given which likely slowing down his rate from 170- 158 with wide-complex tachycardia Lopressor 5 mg IV push were given which slows down his rate 130 with wide- complex tachycardia then broke down back to sinus rhythm with left bundle branch block I will start him on amiodarone drip and load him with oral amiodarone and monitor, will interrogate his ICD and possible do DFT testing again I will evaluate for any electrolyte abnormality. Congestive heart failure, chronic compensated left ventricular systolic dysfunction, nonischemic cardiomyopathy Cardiac catheterization was carried out in November 2019 showing mild coronary artery disease nonobstructive disease Hypertension, maintained on Coreg and losartan. Continue to monitor Hyperlipidemia, monitor lipids FLORA MAGDALENO MD July 15, 2020 11:26
[2020-07-15] MEDS ORDERED: AMIODARONE INJECTION 450 MG in D5W IV SOLUTION (EXCEL) 250 ML IV SCH (11:30)
--- NOTE | 2020-07-15 11:33 | Cardioversion ---
Cardioversion PROCEDURE PHYSICIAN: Flora Enciso DATE OF PROCEDURE: 07/15/20 CHEMICAL CARDIOVERSION: Indications: Ventricular tachycardia Preoperative diagnoses: Ventricular tachycardia Postoperative diagnosis: Sinus rhythm Anesthesia: No anesthesia was used Complications: None Procedure Details: 40 years old gentleman came into the emergency room with palpitation, noted to have wide-complex tachycardia suggestive of ventricular tachycardia versus SVT w ith aberrant conduction. He was given adenosine 6 mg then 12 mg, felt slightly short of breath, slightly flushed but his rate did not change. I proceeded with giving him amiodarone 150 mg IV bolus, it slowed down his heart rate from 170 to 158, continue to have left bundle branch block morphology, I proceeded with giving him Lopressor 5 mg IV which reduced his heart rate to 140 with persistent left bundle branch block morphology. Patient then broke down to sinus rhythm with a heart rate 60 with left bundle branch, blood pressure continue to be stable Conclusions: Successful chemical cardioversion in terminating wide-complex tachycardia FLORA ENCISO MD July 15, 2020 11:33
[2020-07-15] MEDS ORDERED: ONDANSETRON 4 MG/2 ML (SDV) Z0FRAN IVP ONE (11:35)
[2020-07-15] MEDS: AMIODARONE INJECTION 450 MG in D5W IV SOLUTION (EXCEL) 250 ML IV SCH ×2 (11:45→19:40)
--- NOTE | 2020-07-15 12:18 | ED Cardiac General ---
History of Present Illness General Chief Complaint: Cardiac/General Problems Stated Complaint: HEART RACING/DEFIBRILLATOR PLACED 3 WKS AGO Nursing Triage Note: Pt reports racingheart rate since early this AM.Denies CP,denies SOB.States he had defib placed 05/2020 Source: patient Exam Limitations: no limitations History of Present Illness Date Seen by Provider: July 15, 2020 Time Seen by Provider: 10:45 Initial Comments This is a 40-year-old gentleman with heart failure presents to the emergency room with complaints of a racing heart that started this aborted. He denies chest pain or shortness of breath. He is noted to have a heart rate in the 170s when placed on the monitor. He recently had a defibrillator replaced. Allergies and Home Medications Allergies Coded Allergies: No Known Drug Allergies (Unverified , 10/05/19) Home Medications Aspirin 81 Mg Tablet.dr, 81 MG PO DAILY, (Reported) Carvedilol 3.125 Mg Tablet, 6.25 MG PO BID, (Reported) Cefuroxime Axetil 500 Mg Tablet, 500 MG PO BID Prescribed by: FLORA ENCISO on 06/05/20 0611 Furosemide 40 Mg Tablet, 40 MG PO DAILY, (Reported) Hyoscyamine Sulfate 0.125 Mg Tab.subl, 0.25 MG SL Q4H Prescribed by: VALERIE BROWN on 06/08/20 2203 Losartan Potassium 25 Mg Tablet, 50 MG PO DAILY, (Reported) Oxycodone HCl/Acetaminophen 1 Each Tablet, 1 TAB PO Q4H PRN for PAIN-MODERATE (5-7) Prescribed by: FLORA ENCSIO on 06/05/20 0814 Pantoprazole Sodium 40 Mg Tablet.dr, 40 MG PO DAILY, (Reported) Potassium Chloride 10 Meq Tablet.er, 5 MEQ PO BID, (Reported) TAKES OF A 10MEQ Patient Home Medication List Home Medication List Reviewed: Yes Review of Systems Review of Systems Constitutional: no symptoms reported, see HPI EENTM: No Symptoms Reported Respiratory: No Symptoms Reported Cardiovascular: See HPI Gastrointestinal: No Symptoms Reported Genitourinary: No Symptoms Reported Musculoskeletal: no symptoms reported Skin: no symptoms reported Psychiatric/Neurological: No Symptoms Reported Endocrine: No Symptoms Reported Hematologic/Lymphatic: No Symptoms Reported Past Bcpybkd-Wfvtbv-Lwhasa Hx Past Med/Social Hx: Reviewed Nursing Past Med/Soc Hx Patient Social History Drug of Choice: HX OF METH USE NONE SINCE NOV 2019 2nd Hand Smoke Exposure: No Recent Infectious Disease Expo: No Recent Hopitalizations: No Immunizations Up To Date Tetanus Booster (TDap): Unknown Date of Pneumonia Vaccine: Dec 07, 2018 Date of Influenza Vaccine: Dec 06, 2019 Seasonal Allergies Seasonal Allergies: Yes (USE INHALER) Past Medical History Surgeries: Yes (CARDIAC CATH 11/2019--NO INTERVENTION;ICD/DEFIBRILLATOR 06/04/20) Cardiac, Defibrillator Respiratory: Yes Asthma Currently Using CPAP: No Currently Using BIPAP: No Cardiac: Yes (CHF-NEEDS LIFEVEST/REFUSES TO WEAR;NSTEMI;EF 10%;LBBB;DEFIBRILLATOR 06/04/20) Cardiomyopathy, Chronic Edema/Swelling, Coronary Artery Disease, Heart Attack, High Cholesterol, Hypertension Neurological: Yes Stroke Sexually Transmitted Disease: Yes (CHLAMYDIA; GONORRHEA 10/05/19) Genitourinary: No Gastrointestinal: No Musculoskeletal: No Endocrine: No HEENT: No Cancer: No Psychosocial: Yes (SUBSTANCE ABUSE) Integumentary: No Blood Disorders: No Family Medical History Asthma AUNT Hypertension MOTHER No Pertinent Family Hx HAS BEEN OUT OF RETIREMENT SINCE 2018 VERY NON-COMPLIANT IN ALL ASPECTS OF CARE NEEDS LIFE VEST-=-REFUSES TO WEAR; NSTEMI; EF 10%; LBBB ICD/DEFIBRILLATOR PLACED BY DR. ENCISO 06/04/20 SOCIAL HISTORY: -ETOH-RARELY USES -DRUGS--METH, COCAINE, THC. DENIES IV USE-STATES HE SMOKES THEM -NO TOBACCO PAST SURGICAL HISTORY: -CARDIAC CATH 11/2019--NO INTERVENTION -ICD DEFIBRILLATOR PLACED 06/04/[address] ENCISO ECHOCARDIOGRAM 05/17/2020 Physical Exam Vital Signs Vital Signs - First Documented 07/15/20 07/15/20 10:59 11:24 Temp 36.8 Pulse 172 Resp 16 B/P (MAP) 149/104 (119) Pulse Ox 97 O2 Delivery Room Air Capillary Refill : Less Than 3 Seconds Height, Weight, BMI Height: '" Weight: lbs. oz. kg; 26.00 BMI Method: General Appearance: No Apparent Distress, WD/WN, Thin HEENT: PERRL/EOMI, Normal ENT Inspection Neck: Normal Inspection Respiratory: Lungs Clear, Normal Breath Sounds, No Accessory Muscle Use Cardiovascular: Regular Rate, Rhythm (Post cardioversion exam), No Edema, No Murmur Extremity: Normal Inspection, No Pedal Edema Neurologic/Psychiatric: Alert, Oriented x3, No Motor/Sensory Deficits, Normal Mood/Affect, certified bench jeweler technician II-XII Norm as Tested Skin: Normal Color, Warm/Dry Progress/Results/Core Measures Results/Orders Lab Results Laboratory Tests Test 07/15/20 10:25 Range/Units White Blood Count 5.0 4.3-11.0 10^3/uL Red Blood Count 5.78 H 4.30-5.52 10^6/uL Hemoglobin 14.8 13.3-17.7 g/dL Hematocrit 49 40-54 % Mean Corpuscular Volume 85 80-99 fL Mean Corpuscular Hemoglobin 26 25-34 pg Mean Corpuscular Hemoglobin Concent 30 L 32-36 g/dL Red Cell Distribution Width 18.8 H 10.0-14.5 % Platelet Count 283 130-400 10^3/uL Mean Platelet Volume 10.7 9.0-12.2 fL Immature Granulocyte % (Auto) 0 % Neutrophils (%) (Auto) 69 42-75 % Lymphocytes (%) (Auto) 17 12-44 % Monocytes (%) (Auto) 9 0-12 % Eosinophils (%) (Auto) 5 0-10 % Basophils (%) (Auto) 1 0-10 % Neutrophils # (Auto) 3.5 1.8-7.8 10^3/uL Lymphocytes # (Auto) 0.8 L 1.0-4.0 10^3/uL Monocytes # (Auto) 0.4 0.0-1.0 10^3/uL Eosinophils # (Auto) 0.3 0.0-0.3 10^3/uL Basophils # (Auto) 0.0 0.0-0.1 10^3/uL Immature Granulocyte # (Auto) 0.0 0.0-0.1 10^3/uL Sodium Level 140 135-145 MMOL/L Potassium Level 4.2 3.6-5.0 MMOL/L Chloride Level 103 98-107 MMOL/L Carbon Dioxide Level 24 21-32 MMOL/L Anion Gap 13 5-14 MMOL/L Blood Urea Nitrogen 7 7-18 MG/DL Creatinine 1.18 0.60-1.30 MG/DL Estimat Glomerular Filtration Rate > 60 BUN/Creatinine Ratio 6 Glucose Level 128 H 70-105 MG/DL Calcium Level 9.1 8.5-10.1 MG/DL Corrected Calcium 9.2 8.5-10.1 MG/DL Magnesium Level 1.8 1.6-2.4 MG/DL Total Bilirubin 1.1 H 0.1-1.0 MG/DL Aspartate Amino Transf (AST/SGOT) 34 5-34 U/L Alanine Aminotransferase (ALT/SGPT) 20 0-55 U/L Alkaline Phosphatase 113 40-136 U/L Myoglobin 71.3 10.0-92.0 NG/ML Troponin I < 0.028 <0.028 NG/ML Total Protein 8.0 6.4-8.2 GM/DL Albumin 3.9 3.2-4.5 GM/DL My Orders Orders - EMERY CUBA MD Adenosine Injection (Adenocard Injection (07/15/20 11:00) Amiodarone For Bolus (Cordarone Bolus) (07/15/20 10:59) Metoprolol Tartrate Injection (Lopressor (07/15/20 11:03) Ondansetron Injection (Zofran Injectio (07/15/20 11:35) Cbc With Automated Diff (07/15/20 12:32) Magnesium (07/15/20 12:32) Chest 1 View, Ap/Pa Only (07/15/20 12:32) Ekg Tracing (07/15/20 12:32) Comprehensive Metabolic Panel (07/15/20 12:32) Myoglobin Serum (07/15/20 12:32) O2 (07/15/20 12:32) Monitor-Rhythm Ecg Trace Only (07/15/20 12:32) Lipid Panel (07/16/20 06:00) Ed Iv/Invasive Line Start (07/15/20 12:32) Troponin I (07/15/20 12:32) Ekg Tracing (07/15/20 12:32) Medications Given in ED Current Medications Medications Dose Ordered Sig/Nelly Route Start Time Stop Time Status Last Admin Dose Admin Adenosine 6 mg ONCE ONCE IV 07/15/20 11:00 07/15/20 11:01 DC 07/15/20 11:00 6 MG Adenosine 12 mg ONCE ONCE IV 07/15/20 11:03 07/15/20 11:48 DC 07/15/20 11:03 12 MG Amiodarone HCl 150 mg STK-MED ONCE IV 07/15/20 10:59 07/15/20 11:07 DC 07/15/20 10:59 150 MG Metoprolol Tartrate 5 mg STK-MED ONCE .ROUTE 07/15/20 11:03 07/15/20 11:12 DC 07/15/20 11:03 5 MG Ondansetron HCl 8 mg ONCE ONCE IVP 07/15/20 11:35 07/15/20 11:50 DC 07/15/20 11:35 8 MG Vital Signs/I&O 07/15/20 07/15/20 10:59 11:24 Temp 36.8 Pulse 172 172 Resp 16 B/P (MAP) 149/104 (119) Pulse Ox 97 O2 Delivery Room Air Blood Pressure Mean: 119 Progress Progress Note : Progress Note Dr. Beltran was notified promptly after EKG was obtained and presented to the ER. Adenosine was administered which had no effect. Rhythm was determined to be ventricular tachycardia. Patient was then treated with Lopressor and amiodarone with resulting cardioversion to sinus rhythm. Patient was continued on amiodarone. Patient developed symptomatic hypotension which was treated with IV fluids. EKG #1: EKG Time: 10:43 Rate: 169 Comment Tachycardia with somewhat widened QRS complex. Likely SVT versus V. tach. EKG #2: EKG Time: 12:32 Rate: 62 Rhythm: Normal Sinus Comment Sinus rhythm with no ST elevation or depression. First-degree AV block with RI interval of 220. Nonspecific intraventricular conduction delay by automated interpretation. Possible LVH. Departure Communication (Admissions) Time/Spoke to Admitting Phy: 12:56 Dr. Fritz Time/Spoke to Consulting Phy: 10:55 Dr. Enciso Impression Primary Impression: Ventricular tachycardia Additional Impression: Hypertension Qualified Codes: I10 - Essential (primary) hypertension Disposition: ADMITTED INPATIENT Condition: Improved Admissions Decision to Admit Reason: Admit from ER (General) Decision to Admit/Date: July 15, 2020 Time/Decision to Admit Time: 11:05 Departure-Patient Inst. Referrals: AMARJIT CONROY MD (PCP/Family) Primary Care Physician EMERY CUBA MD July 15, 2020 12:18
[2020-07-15 12:39] LABS: BASOPHILS % (AUTO) 1 % (0-10); EOSINOPHILS # (AUTO) 0.3 10^3/uL (0.0-0.3); EOSINOPHILS % (AUTO) 5 % (0-10); HEMATOCRIT 49 % (40-54); HEMOGLOBIN 14.8 g/dL (13.3-17.7); LYMPHOCYTES # (AUTO) 0.8 10^3/uL (1.0-4.0); LYMPHOCYTES % (AUTO) 17 % (12-44); MEAN CORPUSCULAR HEMOGLOBIN 26 pg (25-34); MEAN CORPUSCULAR HGB CONC 30 g/dL (32-36); MEAN CORPUSCULAR VOLUME 85 fL (80-99); MEAN PLATELET VOLUME 10.7 fL (9.0-12.2); MONOCYTES # (AUTO) 0.4 10^3/uL (0.0-1.0); MONOCYTES % (AUTO) 9 % (0-12); NEUTROPHILS # (AUTO) 3.5 10^3/uL (1.8-7.8); NEUTROPHILS % (AUTO) 69 % (42-75); PLATELET COUNT 283 10^3/uL (130-400)
[2020-07-15 12:42] LABS: ALBUMIN 3.9 GM/DL (3.2-4.5); CHLORIDE 103 MMOL/L (98-107); POTASSIUM 4.2 MMOL/L (3.6-5.0); SODIUM 140 MMOL/L (135-145)
[2020-07-15 12:43] LABS: CALCIUM 9.1 MG/DL (8.5-10.1)
[2020-07-15 12:44] LABS: GLUCOSE 128 MG/DL (70-105)
[2020-07-15 12:45] LABS: CARBON DIOXIDE 24 MMOL/L (21-32)
[2020-07-15 12:46] LABS: BILIRUBIN,TOTAL 1.1 MG/DL (0.1-1.0)
[2020-07-15 12:48] LABS: ALKALINE PHOSPHATASE 113 U/L (40-136); CREATININE SERUM 1.18 MG/DL (0.60-1.30); GFR ESTIMATED > 60
[2020-07-15 12:49] LABS: BUN/CREATININE RATIO 6
[2020-07-15 12:51] LABS: ALANINE AMINOTRANSFERASE 20 U/L (0-55); MAGNESIUM 1.8 MG/DL (1.6-2.4)
[2020-07-15] MEDS ORDERED: CATHETER FLUSH 10 ML SYR IV PRN (14:00)
[2020-07-15] MEDS: ONDANSETRON 4 MG/2 ML (SDV) Z0FRAN IVP PRN ×3 (14:52→20:21)
[2020-07-15] MEDS: CATHETER FLUSH 10 ML SYR IV SCH ×2 (14:52→21:27)
[2020-07-15] MEDS ORDERED: NS IV 1000 ML 1,000 ML ONE (15:08)
[2020-07-15] MEDS: NS IV 500 ML 500 ML IV SCH (15:40)
[2020-07-15] MEDS: inSUlin ASPART (NovoLOG) 1 UNIT/0.01 ML (CHARGE PER UNIT) SC SCH ×2 (16:11→21:27)
--- NOTE | 2020-07-15 16:42 | History & Physical-Hospitalist ---
History of Present Illness HPI/Chief Complaint CC: Ventricular tachycardia s/p cardioversion on ER by Dr Enciso HPI: This is a 40yoAAM of [facility] who is post defib placement 2 weeks ago who presented to the ER with tachycardia with palpitations and severe dizziness and was found to have ventricular tachycardia and required cardioversion. Currently he is on a Amiodarone drip and BP is SBP 80's. Currently he denies pain. Source: patient, RN/MD, old records Exam Limitations: no limitations Date Seen 07/15/20 Time Seen by a Provider: 14:00 Attending Physician Kely Santacruz DO PCP Ricci Bernard MD Referring Physician Date of Admission July 15, 2020 at 13:01 Home Medications & Allergies Home Medications Reviewed patient Home Medication Reconciliation performed by pharmacy medication reconciliations die technician and/or nursing. Patients Allergies have been reviewed. Allergies Allergies Coded Allergies No Known Drug Allergies (Unverified10/05/19) Patient Social History Marrital Status: Tobacco Use?: No Use of E-Cig and/or Vaping dev: No Substance use?: Yes Substance type: Marijuana Substance frequency: Several times a month Alcohol Use?: Yes Alcohol type: Wine Alcohol Frequency: Several times a month Pt stated abuse/neglect: No Immunizations Up To Date Influenza Vaccine Up-to-Date: Yes; Up-to-Date Tetanus Booster (TDap): Unknown Date of Pneumonia Vaccine: Dec 07, 2018 Current Status Do you have an Advance Directi: No Communicates: Verbally Primary Language: [place]ill[place] Preferred Spoken Language: [place] Is interpretation needed?: No Implanted or Applied Medical D: None Family Medical History Family Hx: HAS BEEN OUT OF CUSTODIAL SINCE 2018 VERY NON-COMPLIANT IN ALL ASPECTS OF CARE NEEDS LIFE VEST-=-REFUSES TO WEAR; NSTEMI; EF 10%; LBBB ICD/DEFIBRILLATOR PLACED BY DR. ENCISO 06/04/20 SOCIAL HISTORY: -ETOH-RARELY USES -DRUGS--METH, COCAINE, THC. DENIES IV USE-STATES HE SMOKES THEM -NO TOBACCO PAST SURGICAL HISTORY: -CARDIAC CATH 11/2019--NO INTERVENTION -ICD DEFIBRILLATOR PLACED 06/04/[address] ENCISO ECHOCARDIOGRAM 05/17/2020 Review of Systems Constitutional: see HPI, dizziness Cardiovascular: palpitations Physical Exam Physical Exam Vital Signs Vital Signs - First Documented 07/15/20 07/15/2007/15/21 10:59 11:24 13:19 Temp 36.8 Pulse 172 Resp 16 B/P (MAP) 149/104 (119) Pulse Ox 97 O2 Delivery Room Air O2 Flow Rate 2.00 Capillary Refill : Less Than 3 Seconds Height, Weight, BMI Height: '" Weight: lbs. oz. kg; 26.74 BMI Method: General Appearance: No Apparent Distress Eyes: Right Eye Normal Inspection, Right Eye PERRL HEENT: PERRL/EOMI, TMs Normal, Normal ENT Inspection, Pharynx Normal, Moist Mucous Membranes Neck: Full Range of Motion, Normal Inspection, Non Tender Respiratory: Chest Non Tender, Lungs Clear, Normal Breath Sounds, No Accessory Muscle Use, No Respiratory Distress Cardiovascular: Regular Rate, Rhythm, No Edema, No Gallop, No JVD, No Murmur, Normal Peripheral Pulses Gastrointestinal: Normal Bowel Sounds, No Organomegaly, No Pulsatile Mass, Non Tender, Soft Back: Normal Inspection, No CVA Tenderness, No Vertebral Tenderness Extremity: Normal Capillary Refill, Normal Inspection, Normal Range of Motion, Non Tender, No Calf Tenderness, No Pedal Edema Neurologic/Psychiatric: Alert, Oriented x3, No Motor/Sensory Deficits, Normal Mood/Affect Skin: Normal Color, Warm/Dry Lymphatic: No Adenopathy Results Results/Procedures Labs Laboratory Tests 07/15/20 10:25 Patient resulted labs reviewed. Assessment/Plan Admission Diagnosis Assessment: Ventricular tachycardia s/p cardioversion Defib placed 2 weeks ago Hypotension Plan: Amio drip Admission Status: Inpatient Order (span 2 midnights) Reason for Inpatient Admission: vent tachy Diagnosis/Problems Diagnosis/Problems (1) Ventricular tachycardia Status: Acute (2) Elevated troponin Status: Acute KELY SANTACRUZ DO July 15, 2020 16:42
[2020-07-15] MEDS ORDERED: PHENYLEPHRINE INJECTION 20 MG in NS (IVPB) 250 ML IV SCH (16:45)
[2020-07-15] MEDS ORDERED: PHENYLEPHRINE INJECTION 10 MG in NS (IVPB) 250 ML IV SCH (16:45)
[2020-07-15] MEDS ORDERED: LIDOCAINE 1% INJ 20 ML 20 ML VIAL ONE (17:54)
[2020-07-15] MEDS ORDERED: fentaNYL INJ 100 MCG/2 ML AMP ONE (18:11)
[2020-07-15] MEDS ORDERED: LIDOCAINE 1% INJ 20 ML 20 ML VIAL INJ ONE (18:15)
[2020-07-15] MEDS ORDERED: fentaNYL INJ 100 MCG/2 ML AMP IVP ONE (18:30)
--- NOTE | 2020-07-15 18:57 | Diagnostic Imaging Report ---
INDICATION: Central line placement. COMPARISON: 06/08/2020. EXAMINATION: Single frontal radiographic view of the chest was obtained. FINDINGS: Persistent marked cardiomegaly. Pulmonary vasculature is within normal limits. Right internal jugular central venous catheter is seen with tip in the SVC. Left-sided AICD is also present. Lungs are clear. There is no focal consolidation, large effusion or pneumothorax. Osseous structures show no gross acute abnormality. IMPRESSION: Persistent marked cardiomegaly, but no evidence of overt failure or focal infiltrate. Dictated by: Dictated on workstation # [id number]
[2020-07-15] MEDS ORDERED: PANTOPRAZOLE 40 MG (PROTONIX) VIAL ONE (20:04)
[2020-07-15] MEDS: PANTOPRAZOLE 40 MG (PROTONIX) VIAL IV SCH (20:21)
[2020-07-15] MEDS: AMIODARONE 200 MG (CORDARONE) TAB PO SCH (21:27)
--- NOTE | 2020-07-15 23:25 | CONSULTATION REPORT ---
DATE OF SERVICE: 07/15/2020 ATTENDING PRIMARY CARE PHYSICIAN: Dr. Ricci Bernard. ADMITTING PHYSICIAN: Dr. Kely Fritz. HISTORY OF PRESENT ILLNESS: The patient is a 40-year-old male with severe nonischemic cardiomyopathy and does have a single chamber ICD. He started to have palpitations and tachycardia and presented to the Emergency Department and was found to be in a wide complex tachycardia. Multiple attempts were made while he was in tachycardia to slow his rate. No treatment was delivered by his defibrillator. He does not report any shortness of breath as well as no syncopal episodes. The patient will require a central venous access for antiarrhythmic medications as well as possible IV vasopressors to maintain blood pressure and proper arterial perfusion. PAST MEDICAL HISTORY: Ventricular tachycardia, congestive heart failure, nonischemic cardiomyopathy, hypertension, hyperlipidemia. PAST SURGICAL HISTORY: Cardiac catheterization . ICD and defibrillator placement, . Bilateral lower extremity edema, coronary artery disease, history of myocardial infarction, hypercholesterolemia, hypertension, cardiomyopathy, history of chlamydia and gonorrhea, history of polysubstance abuse. ALLERGIES: No known drug allergies. MEDICATIONS: Aspirin, carvedilol, cefuroxime, furosemide, ____, losartan, oxycodone, Protonix, potassium. SOCIAL HISTORY: Negative smoke, history of methamphetamine use; however, quit 11/2019. FAMILY HISTORY: Mother, hypertension. VITAL SIGNS: Temperature 36.8, blood pressure 78/52, pulse 60, respirations 18, pulse oximetry 91% on 2 liters nasal cannula. REVIEW OF SYSTEMS: Well-nourished male currently in no acute distress. He is not experiencing any shortness of breath or difficulty breathing. He is having tachycardia, which is slightly uncomfortable. No diaphoresis. No cough or sputum production. No nausea, vomiting. No known diarrhea, constipation, no red blood per rectum, no dark tarry stools. No fever, chills, no recent inadvertent weight loss. All other review of systems negative. PHYSICAL EXAMINATION: CHEST: Few scattered rales and rhonchi bilaterally. HEART: Regular, no murmurs. EXTREMITIES: +1/3 bilateral lower extremity edema, negative Homans sign. HEENT: No scleral icterus. NECK: No cervical lymphadenopathy. ABDOMEN: Soft, nontender, nondistended. SKIN: Warm, dry. LABORATORY DATA: WBC 5.0, hemoglobin 14.8, hematocrit 49, platelets 283. BUN 7, creatinine 1.18. ASSESSMENT AND PLAN: A 40-year-old male in ventricular tachycardia with symptomatic hypotension. He will require multiple antiarrhythmic medications as well as vasopressors to maintain blood pressure and will require a central venous catheter, which we will proceed with. Job ID: [id number] DocumentID: [id number] Dictated Date: 07/15/2020 17:28:29 Wood Barrel Reconditioner Date: 07/15/2020 19:07:08 Dictated By: GABE VARMA MD
[2020-07-16] MEDS: ONDANSETRON 4 MG/2 ML (SDV) Z0FRAN IVP PRN ×2 (00:21→10:37)
--- NOTE | 2020-07-16 01:53 | OPERATIVE REPORT ---
DATE OF SERVICE: 07/15/2020 PREPROCEDURE DIAGNOSES: Intermittent ventricular tachycardia and symptomatic hypotension. POSTPROCEDURE DIAGNOSES: Intermittent ventricular tachycardia and symptomatic hypotension. PROCEDURE: Placement of right internal jugular central venous catheter. INDICATIONS: He does have extensive past medical history including ischemic cardiomyopathy with an ejection fraction of 10%, hypertension, hypercholesterolemia, and coronary artery disease. He had an intracardiac device placed recently as well. Due to his intermittent arrhythmias, he is having significant symptomatic hypotension and require a central venous catheter for IV vasopressors. DESCRIPTION OF PROCEDURE: The right chest and neck were prepped and draped in standard surgical fashion. A 1% lidocaine was used to anesthetize the left subclavian region. The left subclavian vein could not be cannulated. The neck was then anesthetized and the right internal jugular vein was then cannulated withdrawing a venous blood and the guidewire was inserted without any resistance. The cannulating needle removed and a skin incision made using 11 blade. A tract was then created using venous dilator and a triple lumen central venous catheter was placed over the guidewire using the Seldinger technique and the guidewire removed. All three ports kassy venous blood and saline pushed in without any resistance. The catheter was then sutured to the skin using interrupted 3-0 silk sutures. Catheter was then cleaned and covered with Op-Site. The patient tolerated the procedure well. We will get a post-procedure chest x-ray and once confirmation of placement, the catheter may be accessed and used at any time. Job ID: [id number] DocumentID: [id number] Dictated Date: 07/15/2020 18:43:18 Branding Machine Operator Date: 07/16/2020 01:52:37 Dictated By: AMARJIT ANTHONY MD
[2020-07-16 02:11] LABS: BASOPHILS % (AUTO) 0 % (0-10); EOSINOPHILS % (AUTO) 0 % (0-10); HEMATOCRIT 48 % (40-54); HEMOGLOBIN 14.1 g/dL (13.3-17.7); LYMPHOCYTES # (AUTO) 0.7 10^3/uL (1.0-4.0); LYMPHOCYTES % (AUTO) 7 % (12-44); MEAN CORPUSCULAR HEMOGLOBIN 25 pg (25-34); MEAN CORPUSCULAR HGB CONC 29 g/dL (32-36); MEAN CORPUSCULAR VOLUME 86 fL (80-99); MEAN PLATELET VOLUME 10.4 fL (9.0-12.2); MONOCYTES # (AUTO) 1.1 10^3/uL (0.0-1.0); MONOCYTES % (AUTO) 10 % (0-12); NEUTROPHILS # (AUTO) 9.2 10^3/uL (1.8-7.8); NEUTROPHILS % (AUTO) 83 % (42-75); PLATELET COUNT 179 10^3/uL (130-400); WHITE BLOOD COUNT 11.1 10^3/uL (4.3-11.0)
[2020-07-16 02:26] LABS: POTASSIUM 5.4 MMOL/L (3.6-5.0)
[2020-07-16 02:27] LABS: ALBUMIN 3.8 GM/DL (3.2-4.5)
[2020-07-16 02:28] LABS: CALCIUM 8.5 MG/DL (8.5-10.1)
[2020-07-16 02:29] LABS: TOTAL PROTEIN 7.5 GM/DL (6.4-8.2)
[2020-07-16 02:31] LABS: BILIRUBIN,TOTAL 2.2 MG/DL (0.1-1.0)
[2020-07-16 02:32] LABS: PHOSPHORUS 3.5 MG/DL (2.3-4.7)
[2020-07-16 02:33] LABS: CREATININE SERUM 2.75 MG/DL (0.60-1.30)
[2020-07-16 02:35] LABS: LYMPHOCYTES % (MANUAL) 6 %; MAGNESIUM 1.8 MG/DL (1.6-2.4); NEUTROPHILS % (MANUAL) 81 %
[2020-07-16 02:36] LABS: MONOCYTES % (MANUAL) 13 %; RBC MORPH NORMAL
[2020-07-16] MEDS: POTASSIUM CL 10MEQ/50ML IVPB 50 ML IV SCH (04:28)
[2020-07-16] MEDS: inSUlin ASPART (NovoLOG) 1 UNIT/0.01 ML (CHARGE PER UNIT) SC SCH ×4 (04:28→20:42)
[2020-07-16] MEDS: KCL 20 MEQ TAB (K-DUR) PO SCH (04:28)
--- NOTE | 2020-07-16 05:26 | Pulmonary Consultation ---
History of Present Illness History of Present Illness Date Seen by Provider: July 16, 2020 Time Seen by Provider: 05:20 Date of Admission Reason for Visit: Ventricular tachycardia Allergies and Home Medications Allergies Coded Allergies: No Known Drug Allergies (Unverified , 10/05/19) Home Medications Aspirin 81 Mg Tablet.dr, 81 MG PO DAILY, (Reported) Carvedilol 3.125 Mg Tablet, 6.25 MG PO BID, (Reported) Furosemide 40 Mg Tablet, 40 MG PO DAILY, (Reported) Losartan Potassium 25 Mg Tablet, 50 MG PO DAILY, (Reported) Potassium Chloride 10 Meq Tablet.er, 5 MEQ PO BID, (Reported) TAKES OF A 10MEQ Past Vkjroam-Ibuipr-Ihxijm Hx Past Med/Social Hx: Reviewed Nursing Past Med/Soc Hx Patient Social History Drug of Choice: HX OF METH USE NONE SINCE NOV 2019 2nd Hand Smoke Exposure: No Recent Infectious Disease Expo: No Recent Hopitalizations: No Have you traveled recently?: No Substance type: Marijuana Alcohol Use?: Yes Immunizations Up To Date Tetanus Booster (TDap): Unknown Date of Pneumonia Vaccine: Dec 07, 2018 Date of Influenza Vaccine: Dec 06, 2019 Seasonal Allergies Seasonal Allergies: Yes (USE INHALER) Past Medical History Surgeries: Yes (CARDIAC CATH 11/2019--NO INTERVENTION;ICD/DEFIBRILLATOR ) Cardiac, Defibrillator Respiratory: Yes Asthma Currently Using CPAP: No Currently Using BIPAP: No Cardiac: Yes (CHF-NEEDS LIFEVEST/REFUSES TO WEAR;NSTEMI;EF10%;LBBB;DEFIBRILLATOR 06/04/20) Cardiomyopathy, Chronic Edema/Swelling, Coronary Artery Disease, Heart Attack, High Cholesterol, Hypertension Neurological: Yes Stroke Sexually Transmitted Disease: Yes (CHLAMYDIA; GONORRHEA 10/05/19) Genitourinary: No Gastrointestinal: No Musculoskeletal: No Endocrine: No HEENT: No Cancer: No Psychosocial: Yes (SUBSTANCE ABUSE) Integumentary: No Blood Disorders: No Family Medical History Asthma AUNT Hypertension MOTHER No Pertinent Family Hx HAS BEEN OUT OF SHELTER SINCE 2018 VERY NON-COMPLIANT IN ALL ASPECTS OF CARE NEEDS LIFE VEST-=-REFUSES TO WEAR; NSTEMI; EF 10%; LBBB ICD/DEFIBRILLATOR PLACED BY DR. MAGDALENO 06/04/20 SOCIAL HISTORY: -ETOH-RARELY USES -DRUGS--METH, COCAINE, THC. DENIES IV USE-STATES HE SMOKES THEM -NO TOBACCO PAST SURGICAL HISTORY: -CARDIAC CATH 11/2019--NO INTERVENTION -ICD DEFIBRILLATOR PLACED 06/04/[address] MAGDALENO ECHOCARDIOGRAM 05/17/2020 Review of Systems Time Seen by Provider: 05:26 Sepsis Event Evaluation Height, Weight, BMI Height: '" Weight: lbs. oz. kg; 26.74 BMI Method: Exam Exam Vital Signs Date Time Temp Pulse Resp B/P (MAP) Pulse Ox O2 Delivery O2 Flow Rate FiO2 07/16/20 03:55 94 Nasal Cannula 2.00 07/16/20 03:27 36.4 Nasal Cannula 2.00 07/16/20 01:00 65 15 97/74 (82) 100 Nasal Cannula 2.00 07/16/20 01:00 65 07/16/20 00:00 64 26 95/65 (75) 97 Nasal Cannula 2.00 07/16/20 00:00 96 Nasal Cannula 2.00 07/15/20 23:27 36.1 Nasal Cannula 2.00 07/15/20 23:00 62 18 98/76 (83) 95 Nasal Cannula 2.00 07/15/20 22:08 61 16 106/66 (79) 97 Nasal Cannula 2.00 07/15/20 21:00 60 113/72 (86) Nasal Cannula 2.00 07/15/20 20:55 Nasal Cannula 2.00 07/15/20 20:54 Nasal Cannula 2.00 07/15/20 20:27 35.8 07/15/20 20:00 60 20 99/79 (86) 98 Nasal Cannula 2.00 07/15/20 19:00 63 07/15/20 19:00 63 17 99/80 (86) 96 Nasal Cannula 2.00 07/15/20 18:00 66 17 113/60 (77) 100 Nasal Cannula 2.00 07/15/20 17:00 69 23 94/66 (75) 96 Nasal Cannula 2.00 07/15/20 16:44 78/52 (61) Automatic Cuff 07/15/20 16:19 36.0 07/15/20 16:00 Nasal Cannula 2.00 07/15/20 16:00 60 18 82/58 (66) 91 Nasal Cannula 2.00 07/15/20 15:00 64 18 77/59 (65) Nasal Cannula 2.00 07/15/20 14:00 64 14 87/71 (76) Nasal Cannula 2.00 07/15/20 13:47 65 07/15/20 13:30 62 14 84/56 (65) Nasal Cannula 2.00 07/15/20 13:25 61 16 88/50 99 Nasal Cannula 2.00 07/15/20 13:19 Nasal Cannula 2.00 07/15/20 11:24 36.8 172 16 149/104 (119) 97 Room Air 07/15/20 10:59 172 I & O 07/16/20 07:00 Intake Total 2190 ml Output Total 1025 ml Balance 1165 ml Height & Weight Height: '" Weight: lbs. oz. kg; 26.74 BMI Method: General Appearance: No Apparent Distress HEENT: PERRL/EOMI, TMs Normal, Normal ENT Inspection, Pharynx Normal, Moist Mucous Membranes Neck: Full Range of Motion, Normal Inspection, Non Tender Respiratory: Chest Non Tender, Lungs Clear, Normal Breath Sounds, No Accessory Muscle Use, No Respiratory Distress Cardiovascular: Regular Rate, Rhythm, No Edema, No Gallop, No JVD, No Murmur, Normal Peripheral Pulses Capillary Refill: Less Than 3 Seconds Extremity: Normal Capillary Refill, Normal Inspection, Normal Range of Motion, Non Tender, No Calf Tenderness, No Pedal Edema Neurologic/Psychiatric: Alert, Oriented x3, No Motor/Sensory Deficits, Normal Mood/Affect Skin: Normal Color, Warm/Dry Lymphatic: No Adenopathy Results Lab Laboratory Tests 07/15/20 10:25 07/16/20 01:50 Assessment/Plan Assessment/Plan VTach s/p cardioversion -AICD placed 2wks ago -Amio gtt -Cardiology following Acute renal failure with hyperkalemia and oliguria -Repeat labs -Check UA -Give Kayexalate x 1 and 1 amp of bicarb -Monitor and repeat labs at 10:00 -Pt may need to transfer for nephrology support. Hx of CHF -Cardilogy following Hx of methamphetamine use -Check UDS Hypotension EZEQUIEL SÁNCHEZ DO July 16, 2020 05:26
[2020-07-16] MEDS: MAGNESIUM 1 GM/100 ML IVPB 100 ML IV SCH (05:33)
[2020-07-16] MEDS: CATHETER FLUSH 10 ML SYR IV SCH ×3 (05:33→20:42)
[2020-07-16 05:57] LABS: ALBUMIN 3.7 GM/DL (3.2-4.5); POTASSIUM 5.3 MMOL/L (3.6-5.0)
[2020-07-16 05:58] LABS: CALCIUM 8.5 MG/DL (8.5-10.1)
[2020-07-16 06:00] LABS: TOTAL PROTEIN 7.4 GM/DL (6.4-8.2)
[2020-07-16 06:01] LABS: BILIRUBIN,TOTAL 2.1 MG/DL (0.1-1.0)
[2020-07-16 06:03] LABS: CREATININE SERUM 2.89 MG/DL (0.60-1.30); PHOSPHORUS 4.8 MG/DL (2.3-4.7)
[2020-07-16 06:06] LABS: MAGNESIUM 1.7 MG/DL (1.6-2.4)
[2020-07-16] MEDS ORDERED: NS IV 1000 ML 1,000 ML IV SCH (06:30)
[2020-07-16] MEDS ORDERED: SODIUM BICARB 8.4% 50 MEQ/50 ML VIAL IV ONE (06:30)
[2020-07-16] MEDS ORDERED: LACTATED RINGERS 1,000 ML IV SCH (06:30)
[2020-07-16] MEDS ORDERED: SODIUM BICARB 8.4% 50 MEQ/50 ML (ABBOTT) SYR ONE (06:32)
--- NOTE | 2020-07-16 07:24 | Diagnostic Imaging Report ---
INDICATION: Congestive heart failure Single AP view of the chest is obtained with comparison made study of 07/15/2020. There is generalized cardiomegaly similar to previous study. Right jugular catheter and left defibrillator device remains stable position. No pneumothorax or consolidation is identified. IMPRESSION: Continued cardiomegaly without acute abnormality or adverse change. Dictated by: Dictated on workstation # [id number]
[2020-07-16] MEDS ORDERED: SOD POLYSTERENE 15 GM/60 ML (KAYEXALATE) UNIT DOSE PO ONE (08:00)
[2020-07-16] MEDS: PANTOPRAZOLE 40 MG (PROTONIX) VIAL IV SCH ×2 (08:33→20:41)
[2020-07-16] MEDS: AMIODARONE 200 MG (CORDARONE) TAB PO SCH ×2 (08:34→20:42)
[2020-07-16] MEDS: NS IV 500 ML 500 ML IV SCH (08:42)
[2020-07-16] MEDS ORDERED: LOSARTAN 50 MG (COZAAR) TAB PO SCH (09:00)
[2020-07-16] MEDS ORDERED: DOPamine DRIP 250 ML IV SCH (09:30)
[2020-07-16 09:48] VITALS: BP 132/87
[2020-07-16 10:11] LABS: POTASSIUM 4.6 MMOL/L (3.6-5.0)
[2020-07-16 10:17] LABS: CREATININE SERUM 2.93 MG/DL (0.60-1.30)
[2020-07-16 10:40] LABS: BILIRUBIN,URINE 2+ (NEGATIVE); CLARITY,URINE SL CLOUDY; COLOR,URINE DARK YELLOW; GLUCOSE, URINE (UA) NEGATIVE (NEGATIVE); KETONES,URINE 1+ (NEGATIVE); LEUKOCYTE ESTERASE ,URINE 1+ (NEGATIVE); NITRITE,URINE NEGATIVE (NEGATIVE); PROTEIN,URINE 3+ (NEGATIVE)
[2020-07-16 10:55] LABS: AMORPHOUS SEDIMENT,UR MOD AMOR URATES /LPF; BACTERIA,URINE MODERATE /HPF; WBC,URINE 25-50 /HPF
[2020-07-16 11:09] LABS: AMPHETAMINE SCREEN, URINE NEGATIVE (NEGATIVE); BARBITURATE SCREEN URINE NEGATIVE (NEGATIVE); BENZODIAZEPINES SCREEN URINE NEGATIVE (NEGATIVE); CANNABINOID SCREEN, URINE POSITIVE (NEGATIVE); COCAINE SCREEN URINE NEGATIVE (NEGATIVE); METHADONE STAT NEGATIVE (NEGATIVE); METHAMPHETAMINE SCREEN URINE S NEGATIVE (NEGATIVE); OPIATE SCREEN URINE NEGATIVE (NEGATIVE); OXYCODONE STAT NEGATIVE (NEGATIVE); PROPOXYPHENE STAT NEGATIVE (NEGATIVE); TRICYCLIC ANTIDEPRESSANTS SCRE NEGATIVE (NEGATIVE)
--- NOTE | 2020-07-16 11:36 | Cardiology Progress Note ---
Subjective Date Seen by Provider: July 16, 2020 Time Seen by Provider: 11:34 Subjective/Events-last exam Patient was seen at bedside, complaining of nausea and vomiting, abdominal discomfort. Review of Systems General: No Chills, No Night Sweats, No Fatigue, No Malaise, No Appetite, No Other HEENT: No Head Aches, No Visual Changes, No Eye Pain, No Ear Pain, No Dyspha robert, No Sinus Congestion, No Post Nasal Drip, No Sore Throat, No Other Pulmonary: No Dyspnea, No Cough, No Pleuritic Chest Pain, No Other Cardiovascular: No: Chest Pain, Palpitations, Orthopnea, Paroxysmal Noc. Dyspnea, Edema, Lt Headedness, Other Focused Exam Lactate Level 07/16/20 05:30: Lactic Acid Level 1.63 Objective-Cardiology Exam Last Set of Vital Signs Vital Signs 07/16/20 07/16/20 10:00 11:26 Temp 36.4 Pulse 70 Resp 17 B/P (MAP) 123/84 (97) Pulse Ox 97 O2 Delivery Nasal Cannula O2 Flow Rate 2.00 Capillary Refill : Less Than 3 Seconds I&O Intake and Output 07/16/20 00:00 Intake Total 1950 ml Output Total 500 ml Balance 1450 ml Intake Oral 200 ml IV Total 1750 ml Output Urine Total 150 ml Emesis 350 ml Daily Weight Change No General: Alert, Oriented X3, Cooperative HEENT: Atraumatic, PERRLA Neck: Supple, No JVD, No Thyromegaly Lungs: Clear to Auscultation, Normal Air Movement Heart: Regular Rate, Normal S1, Normal S2, No Murmurs Abdomen: Normal Bowel Sounds, Soft, No Tenderness, No Hepatosplenomegaly, No Masses Extremities: No Clubbing, No Cyanosis, No Edema, Normal Pulses, No Tenderness/Swelling Skin: No Rashes, No Breakdown, No Significant Lesion Neuro: Normal Gait, Normal Speech, Strength at 5/5 X4 Ext, Normal Tone, Sensation Intact Psych/Mental Status: Mental Status NL, Mood NL Results Lab Laboratory Tests 07/16/20 01:50 07/16/20 05:30 07/16/20 09:45 A/P-Cardiology Admission Diagnosis Ventricular tachycardia Congestive heart failure, chronic compensated left ventricular systolic dysfunction, nonischemic cardiomyopathy Hypertension Hyperlipidemia Assessment/Plan Wide-complex tachycardia, most probably ventricular tachycardia. Magnet was placed on his defibrillator without change in the rhythm. Adenosine 6 then 12 mg delivered without any change in the rhythm Amiodarone 150 mg bolus were given which likely slowing down his rate from 170- 158 with wide-complex tachycardia Lopressor 5 mg IV push were given which slows down his rate 130 with wide- complex tachycardia then broke down back to sinus rhythm with left bundle branch block Started on amiodarone. Continue to monitor Status post hypotension, responded to IV fluid challenge, monitor closely Acute renal failure, probably acute tubular necrosis due to hypovolemia and low cardiac output. I started him on dobutamine drip, continue to monitor renal function closely Nausea vomiting, probably secondary to uremia. Received 1 dose of Zofran, monitor closely Congestive heart failure, chronic compensated left ventricular systolic dysfunction, nonischemic cardiomyopathy Cardiac catheterization was carried out in November 2019 showing mild coronary artery disease nonobstructive disease Hypertension, status post hypotensive episode. Restarted on Coreg, losartan was discontinued due to the renal failure. Monitor closely Hyperlipidemia, monitor lipids FLORA MAGDALENO MD July 16, 2020 11:36
[2020-07-16] MEDS ORDERED: CARV3.122 PO (12:35)
[2020-07-16] MEDS ORDERED: ATOR10TA66 PO (12:35)
[2020-07-16] MEDS ORDERED: FUROSEMIDE 40 MG/4 ML INJ (LASIX) ONE (13:05)
[2020-07-16] MEDS ORDERED: FUROSEMIDE 40 MG/4 ML INJ (LASIX) IVP NR (13:15)
--- NOTE | 2020-07-16 17:56 | Progress Note ---
Subjective Subjective/Events-last exam Patient having nausea this AM. Low UOP. Review of Systems General: Malaise Pulmonary: No Dyspnea, No Cough Cardiovascular: Chest Pain; No: Palpitations Gastrointestinal: Nausea, Vomiting, Abdominal Pain; No: Diarrhea, Constipation Neurological: Weakness, Incoordination Focused Exam Lactate Level 07/16/20 05:30: Lactic Acid Level 1.63 Objective Exam Last Set of Vital Signs Vital Signs Date Time Temp Pulse Resp B/P (MAP) Pulse Ox O2 Delivery O2 Flow Rate FiO2 07/16/20 17:00 91 26 130/94 (106) 99 Nasal Cannula 2.00 07/16/20 15:35 36.7 Capillary Refill : Less Than 3 Seconds I&O Intake and Output 07/16/20 00:00 Intake Total 1950 ml Output Total 500 ml Balance 1450 ml Intake Oral 200 ml IV Total 1750 ml Output Urine Total 150 ml Emesis 350 ml Daily Weight Change No General: Alert, Oriented X3, Cooperative, Mild Distress Lungs: Clear to Auscultation, Normal Air Movement Heart: Regular Rate, No Murmurs Abdomen: Normal Bowel Sounds, Soft, No Tenderness, No Masses Extremities: No Edema, No Tenderness/Swelling Neuro: Normal Speech, Sensation Intact, Cranial Nerves 3-12 NL Results/Procedures Lab Laboratory Tests 07/15/20 20:45: Glucometer 159H 07/16/20 01:50: White Blood Count 11.1H, Red Blood Count 5.60H, Hemoglobin 14.1, Hematocrit 48, Mean Corpuscular Volume 86, Mean Corpuscular Hemoglobin 25, Mean Corpuscular Hemoglobin Concent 29L, Red Cell Distribution Width 19.3H, Platelet Count 179, Mean Platelet Volume 10.4, Immature Granulocyte % (Auto) 1, Neutrophils (%) (Auto) 83H, Lymphocytes (%) (Auto) 7L, Monocytes (%) (Auto) 10, Eosinophils (%) (Auto) 0, Basophils (%) (Auto) 0, Neutrophils # (Auto) 9.2H, Lymphocytes # (Auto) 0.7L, Monocytes # (Auto) 1.1H, Eosinophils # (Auto) 0.0, Basophils # (Auto) 0.0, Immature Granulocyte # (Auto) 0.1, Neutrophils % (Manual) 81, Lymphocytes % (Manual) 6, Monocytes % (Manual) 13, Blood Morphology Comment NORMAL, Sodium Level 138, Potassium Level 5.4H, Chloride Level 103, Carbon Dioxide Level 19L, Anion Gap 16H, Blood Urea Nitrogen 14, Creatinine 2.75#H, Estimat Glomerular Filtration Rate 31, BUN/Creatinine Ratio 5, Glucose Level 134H, Calcium Level 8.5, Corrected Calcium 8.7, Phosphorus Level 3.5, Magnesium Level 1.8, Total Bilirubin 2.2H, Aspartate Amino Transf (AST/SGOT) 42H, Alanine Aminotransferase (ALT/SGPT) 23, Alkaline Phosphatase 108, Troponin I 0.129H, B- Type Natriuretic Peptide 1018.6H, Total Protein 7.5, Albumin 3.8, Triglycerides Level 78, Cholesterol Level 120, LDL Cholesterol Direct 71, VLDL Cholesterol 16, HDL Cholesterol 38L, Thyroid Stimulating Hormone (TSH) 1.99 07/16/20 05:30: Sodium Level 137, Potassium Level 5.3H, Chloride Level 102, Carbon Dioxide Level 21, Anion Gap 14, Blood Urea Nitrogen 17, Creatinine 2.89H, Estimat Glomerular Filtration Rate 29, BUN/Creatinine Ratio 6, Glucose Level 146H, Calcium Level 8.5, Corrected Calcium 8.7, Phosphorus Level 4.8H, Magnesium Level 1.7, Total Bilirubin 2.1H, Aspartate Amino Transf (AST/SGOT) 44H, Alanine Aminotransferase (ALT/SGPT) 24, Alkaline Phosphatase 101, Total Protein 7.4, Albumin 3.7, Lactic Acid Level 1.63 07/16/20 09:45: Sodium Level 136, Potassium Level 4.6, Chloride Level 101, Carbon Dioxide Level 22, Anion Gap 13, Blood Urea Nitrogen 18, Creatinine 2.93H, Estimat Glomerular Filtration Rate 29, BUN/Creatinine Ratio 6, Glucose Level 109H, Calcium Level 8.0L 07/16/20 09:57: Glucometer 112H 07/16/20 10:25: Urine Color DARK YELLOW, Urine Clarity SL CLOUDY, Urine pH 5.0, Urine Specific [place] >=1.030, Urine Protein 3+H, Urine Glucose (UA) NEGATIVE, Urine Ketones 1+H, Urine Nitrite NEGATIVE, Urine Bilirubin 2+H, Urine Urobilinogen 1.0, Urine Leukocyte Esterase 1+H, Urine RBC (Auto) 1+H, Urine RBC 5-10H, Urine WBC 25-50H, Urine Squamous Epithelial Cells 5-10, Urine Renal Epithelial Cells 5-10, Urine Crystals PRESENTH, Urine Amorphous Sediment MOD TEE URATESH, Urine Bacteria MODERATEH, Urine Casts PRESENT, Urine Hyaline Casts 5-10H, Urine Granular Casts 5-10H, Urine Waxy Casts 5-10H, Urine Mucus N, Urine Culture Indicated YES, Urine Opiates Screen NEGATIVE, Urine Oxycodone Screen NEGATIVE, Urine Methadone Screen NEGATIVE, Urine Propoxyphene Screen NEGATIVE, Urine Barbiturates Screen NEGATIVE, Ur Tricyclic Antidepressants Screen NEGATIVE, Urine Phencyclidine Screen NEGATIVE, Urine Amphetamines Screen NEGATIVE, Urine Methamphetamines Screen NEGATIVE, Urine Benzodiazepines Screen NEGATIVE, Urine Cocaine Screen NEGATIVE, Urine Cannabinoids Screen POSITIVEH 07/16/20 15:38: Glucometer 102 Microbiology 07/15/20 MRSA Screen - Final, Complete MRSA not isolated Assessment/Plan Assessment/Plan (1) Ventricular tachycardia Status: Acute Assessment & Plan: 07/16: Cardiology consulted, appreciate recommendations, s/p cardioconversion, s/p defibrillator placement 2 weeks ago (2) Acute renal failure Status: Acute Assessment & Plan: 07/16: Started on dobamine today, strict I/Os, daily CMP (3) Non-ischemic cardiomyopathy Status: Chronic (4) NSTEMI (non-ST elevated myocardial infarction) Status: Acute (5) Nausea and vomiting Status: Acute Assessment & Plan: 07/16: Melissa/RITA Mcneal MD July 16, 2020 17:55
[2020-07-17] MEDS: NS IV 500 ML 500 ML IV SCH ×2 (02:02→18:11)
[2020-07-17 02:33] LABS: BASOPHILS % (AUTO) 0 % (0-10); EOSINOPHILS # (AUTO) 0.1 10^3/uL (0.0-0.3); EOSINOPHILS % (AUTO) 1 % (0-10); HEMATOCRIT 38 % (40-54); LYMPHOCYTES # (AUTO) 1.2 10^3/uL (1.0-4.0); LYMPHOCYTES % (AUTO) 13 % (12-44); MEAN CORPUSCULAR HEMOGLOBIN 26 pg (25-34); MEAN CORPUSCULAR HGB CONC 31 g/dL (32-36); MEAN CORPUSCULAR VOLUME 83 fL (80-99); MEAN PLATELET VOLUME 10.3 fL (9.0-12.2); MONOCYTES # (AUTO) 1.1 10^3/uL (0.0-1.0); MONOCYTES % (AUTO) 12 % (0-12); NEUTROPHILS # (AUTO) 6.9 10^3/uL (1.8-7.8); NEUTROPHILS % (AUTO) 74 % (42-75); PLATELET COUNT 143 10^3/uL (130-400); WHITE BLOOD COUNT 9.2 10^3/uL (4.3-11.0)
[2020-07-17 02:55] LABS: ALBUMIN 3.4 GM/DL (3.2-4.5); BILIRUBIN,TOTAL 1.6 MG/DL (0.1-1.0); CALCIUM 8.1 MG/DL (8.5-10.1); CREATININE SERUM 2.2 MG/DL (0.60-1.30); MAGNESIUM 1.8 MG/DL (1.6-2.4); PHOSPHORUS 3.7 MG/DL (2.3-4.7); TOTAL PROTEIN 6.6 GM/DL (6.4-8.2)
[2020-07-17] MEDS: POTASSIUM CL 10MEQ/50ML IVPB 50 ML IV SCH (03:34)
[2020-07-17] MEDS: KCL 20 MEQ TAB (K-DUR) PO SCH (03:35)
[2020-07-17] MEDS: MAGNESIUM 1 GM/100 ML IVPB 100 ML IV SCH (03:35)
--- NOTE | 2020-07-17 05:40 | Diagnostic Imaging Report ---
EXAMINATION: Portable erect AP chest at 2:58 AM INDICATION: Hypotension The enlarged cardiac silhouette, the left-sided defibrillator device and the central venous catheter on the right seen on the prior exam of 07/16/2020 are again evident and no different. The lungs remain generally clear. There is still no evidence for failure, pneumonia or for pleural effusion. The mediastinum is not widened. The osseous structures are intact. IMPRESSION: Stable chest. There has been no adverse change since the prior exam. Dictated by: Dictated on workstation # [id number]
--- NOTE | 2020-07-17 05:44 | Pulmonary Progress Note ---
Subjective Time Seen by a Provider: 05:39 Subjective/Events-last exam No complications noted. Sepsis Event Evaluation Height, Weight, BMI Height: '" Weight: lbs. oz. kg; 26.74 BMI Method: Focused Exam Lactate Level 07/16/20 05:30: Lactic Acid Level 1.63 Exam Exam Vital Signs Date Time Temp Pulse Resp B/P (MAP) Pulse Ox O2 Delivery O2 Flow Rate FiO2 07/17/20 04:03 98 Nasal Cannula 2.00 07/17/20 04:02 36.2 Nasal Cannula 2.00 07/17/20 04:00 73 28 127/79 (95) 99 Nasal Cannula 2.00 07/17/20 03:00 71 37 124/86 (99) 98 Nasal Cannula 2.00 07/17/20 02:19 Nasal Cannula 2.00 07/17/20 02:00 76 22 129/90 (107) 98 Nasal Cannula 2.00 07/17/20 01:00 75 16 121/90 (99) 100 Nasal Cannula 2.00 07/17/20 01:00 75 07/17/20 00:00 75 20 117/75 (89) 99 Nasal Cannula 2.00 07/17/20 00:00 96 Nasal Cannula 2.00 07/16/20 23:12 36.4 Nasal Cannula 2.00 07/16/20 23:00 75 15 123/79 (94) 99 Nasal Cannula 2.00 07/16/20 22:00 80 18 147/109 (122) 100 Nasal Cannula 2.00 07/16/20 21:00 84 25 139/95 (110) 99 Nasal Cannula 2.00 07/16/20 20:15 Nasal Cannula 2.00 07/16/20 20:08 97 Nasal Cannula 2.00 07/16/20 20:00 81 22 134/99 (111) 97 Nasal Cannula 2.00 07/16/20 19:30 36.6 07/16/20 19:00 86 07/16/20 19:00 86 21 152/95 (114) 100 Nasal Cannula 2.00 07/16/20 18:00 81 21 142/110 (121) 99 Nasal Cannula 2.00 07/16/20 17:00 91 26 130/94 (106) 99 Nasal Cannula 2.00 07/16/20 16:00 89 9 135/104 (114) 98 Nasal Cannula 2.00 07/16/20 16:00 98 Nasal Cannula 2.00 07/16/20 15:35 36.7 07/16/20 15:00 89 39 133/104 (114) Nasal Cannula 2.00 07/16/20 14:00 91 17 145/112 (123) 98 Nasal Cannula 2.00 07/16/20 13:00 102 25 169/97 (121) Nasal Cannula 2.00 07/16/20 12:57 101 07/16/20 12:50 98 Nasal Cannula 2.00 07/16/20 12:00 97 169/129 (142) 90 Nasal Cannula 2.00 07/16/20 11:26 36.4 07/16/20 11:00 88 15 158/103 (121) 96 Nasal Cannula 2.00 07/16/20 10:00 70 17 123/84 (97) 97 Nasal Cannula 2.00 07/16/20 09:48 69 132/87 07/16/20 09:00 75 14 116/89 (98) 97 Nasal Cannula 2.00 07/16/20 08:23 Nasal Cannula 2.00 07/16/20 08:00 96 Nasal Cannula 2.00 07/16/20 08:00 75 122/78 (93) 98 Nasal Cannula 2.00 07/16/20 07:40 36.0 07/16/20 07:00 71 20 133/96 (108) 97 Nasal Cannula 2.00 07/16/20 06:51 73 07/16/20 06:00 69 18 115/86 (96) 96 Nasal Cannula 2.00 I & O 07/17/20 07:00 Intake Total 2720 ml Output Total 2225 ml Balance 495 ml Height & Weight Height: '" Weight: lbs. oz. kg; 26.74 BMI Method: General Appearance: No Apparent Distress HEENT: PERRL/EOMI, TMs Normal, Normal ENT Inspection, Pharynx Normal, Moist Mucous Membranes Neck: Full Range of Motion, Normal Inspection, Non Tender Respiratory: Chest Non Tender, Lungs Clear, Normal Breath Sounds, No Accessory Muscle Use, No Respiratory Distress Cardiovascular: Regular Rate, Rhythm, No Edema, No Gallop, No JVD, No Murmur, Normal Peripheral Pulses Capillary Refill: Less Than 3 Seconds Extremity: Normal Capillary Refill, Normal Inspection, Normal Range of Motion, Non Tender, No Calf Tenderness, No Pedal Edema Neurologic/Psychiatric: Alert, Oriented x3, No Motor/Sensory Deficits, Normal Mood/Affect Skin: Normal Color, Warm/Dry Lymphatic: No Adenopathy Results Lab Laboratory Tests 07/15/20 10:25 07/16/20 01:50 07/16/20 05:30 07/16/20 09:45 07/17/20 02:11 Assessment/Plan Assessment/Plan VTach s/p cardioversion -AICD placed 2wks ago -Cardiology following Acute renal failure -Monitor Hx of CHF -Cardilogy following Hx of methamphetamine use Hypotension EZEQUIEL SÁNCHEZ DO July 17, 2020 05:44
[2020-07-17] MEDS: CATHETER FLUSH 10 ML SYR IV SCH ×3 (05:54→21:27)
--- NOTE | 2020-07-17 07:43 | Cardiology Progress Note ---
Subjective Date Seen by Provider: July 17, 2020 Time Seen by Provider: 07:42 Subjective/Events-last exam Patient was seen and evaluated, laying down in bed, feeling better today. Review of Systems General: No Chills, No Night Sweats; Fatigue; No Malaise, No Appetite, No Other HEENT: No Head Aches, No Visual Changes, No Eye Pain, No Ear Pain, No Dysphasia, No Sinus Congestion, No Post Nasal Drip, No Sore Throat, No Other Pulmonary: No Dyspnea, No Cough, No Pleuritic Chest Pain, No Other Cardiovascular: No: Chest Pain, Palpitations, Orthopnea, Paroxysmal Noc. Dyspnea, Edema, Lt Headedness, Other Focused Exam Lactate Level 07/16/20 05:30: Lactic Acid Level 1.63 Objective-Cardiology Exam Last Set of Vital Signs Vital Signs 07/17/20 07/17/20 04:02 06:00 Temp 36.2 Pulse 70 Resp 32 B/P (MAP) 110/70 (83) Pulse Ox 97 O2 Delivery Nasal Cannula O2 Flow Rate 2.00 Capillary Refill : Less Than 3 Seconds I&O Intake and Output 07/17/20 00:00 Intake Total 3310 ml Output Total 2500 ml Balance 810 ml Intake Oral 2310 ml IV Total 1000 ml Output Urine Total 1575 ml Emesis 925 ml # Emeses 4 General: Alert, Oriented X3, Cooperative, Mild Distress HEENT: Atraumatic, PERRLA Neck: Supple, No JVD, No Thyromegaly Lungs: Clear to Auscultation, Normal Air Movement Heart: Regular Rate, Normal S1, Normal S2, No Murmurs Abdomen: Normal Bowel Sounds, Soft, No Tenderness, No Masses Extremities: No Clubbing, No Edema, No Tenderness/Swelling Skin: No Rashes, No Breakdown, No Significant Lesion Neuro: Normal Speech, Sensation Intact, Cranial Nerves 3-12 NL Psych/Mental Status: Mental Status NL, Mood NL Results Lab Laboratory Tests 07/16/20 09:45 07/17/20 02:11 A/P-Cardiology Admission Diagnosis Ventricular tachycardia Congestive heart failure, chronic compensated left ventricular systolic dysfunction, nonischemic cardiomyopathy Hypertension Hyperlipidemia Assessment/Plan Wide-complex tachycardia, most probably ventricular tachycardia. Magnet was placed on his defibrillator without change in the rhythm. Adenosine 6 then 12 mg delivered without any change in the rhythm Amiodarone 150 mg bolus were given which likely slowing down his rate from 170- 158 with wide-complex tachycardia Lopressor 5 mg IV push were given which slows down his rate 130 with wide- complex tachycardia then broke down back to sinus rhythm with left bundle branch block Continue on amiodarone, tolerating it well. Status post hypotension, responded to IV fluid challenge, monitor closely Acute renal failure, probably acute tubular necrosis due to hypovolemia and low cardiac output. Continue to hold off on diuretics for another day and reevaluate renal function in the morning Nausea vomiting, probably secondary to uremia. Feeling better today. Continue to monitor Congestive heart failure, chronic compensated left ventricular systolic dysfunction, nonischemic cardiomyopathy Cardiac catheterization was carried out in November 2019 showing mild coronary artery disease nonobstructive disease Hypertension, status post hypotensive episode. Restarted on Coreg, losartan was discontinued due to the renal failure. Monitor closely Hyperlipidemia, monitor lipids FLORA MAGDALENO MD July 17, 2020 07:43
[2020-07-17] MEDS: PANTOPRAZOLE 40 MG (PROTONIX) VIAL IV SCH ×2 (08:24→21:27)
[2020-07-17] MEDS: AMIODARONE 200 MG (CORDARONE) TAB PO SCH ×2 (08:24→21:27)
--- NOTE | 2020-07-17 12:49 | Progress Note ---
Subjective Subjective/Events-last exam Patient states that he is feeling better this AM. No Nausea or vomiting since yesterday afternoon. Tolerated dinner and breakfast this AM. Tolerating ambulation. Review of Systems General: Malaise Pulmonary: No Dyspnea, No Cough Cardiovascular: No: Chest Pain, Palpitations, Edema Gastrointestinal: No: Nausea, Vomiting, Abdominal Pain, Diarrhea, Constipation Genitourinary: No Dysuria, No Frequency Neurological: Weakness Focused Exam Lactate Level 07/16/20 05:30: Lactic Acid Level 1.63 Objective Exam Last Set of Vital Signs Vital Signs Date Time Temp Pulse Resp B/P (MAP) Pulse Ox O2 Delivery O2 Flow Rate FiO2 07/17/20 12:00 35.8 07/17/20 12:00 75 37 104/70 (81) 98 Nasal Cannula 2.00 Capillary Refill : Less Than 3 Seconds I&O Intake and Output 07/17/20 00:00 Intake Total 3310 ml Output Total 2500 ml Balance 810 ml Intake Oral 2310 ml IV Total 1000 ml Output Urine Total 1575 ml Emesis 925 ml # Emeses 4 General: Alert, Oriented X3, Cooperative, No Acute Distress Lungs: Clear to Auscultation, Normal Air Movement Heart: Regular Rate, No Murmurs Abdomen: Normal Bowel Sounds, Soft, No Tenderness, No Masses Extremities: No Edema, No Tenderness/Swelling Skin: No Rashes, No Breakdown Neuro: Normal Speech, Sensation Intact, Cranial Nerves 3-12 NL Results/Procedures Lab Laboratory Tests 07/16/20 15:38: Glucometer 102 07/16/20 20:34: Glucometer 102 07/17/20 02:11: White Blood Count 9.2, Red Blood Count 4.63, Hemoglobin 12.0L, Hematocrit 38L, Mean Corpuscular Volume 83, Mean Corpuscular Hemoglobin 26, Mean Corpuscular Hemoglobin Concent 31L, Red Cell Distribution Width 18.8H, Platelet Count 143, Mean Platelet Volume 10.3, Immature Granulocyte % (Auto) 0, Neutrophils (%) (Auto) 74, Lymphocytes (%) (Auto) 13, Monocytes (%) (Auto) 12, Eosinophils (%) (Auto) 1, Basophils (%) (Auto) 0, Neutrophils # (Auto) 6.9, Lymphocytes # (Auto) 1.2, Monocytes # (Auto) 1.1H, Eosinophils # (Auto) 0.1, Basophils # (Auto) 0.0, Immature Granulocyte # (Auto) 0.0, Sodium Level 136, Potassium Level 4.0, Chloride Level 100, Carbon Dioxide Level 26, Anion Gap 10, Blood Urea Nitrogen 20H, Creatinine 2.20H, Estimat Glomerular Filtration Rate 40, BUN/Creatinine Ratio 9, Glucose Level 112H, Calcium Level 8.1L, Corrected Calcium 8.6, Phosphorus Level 3.7, Magnesium Level 1.8, Total Bilirubin 1.6H, Aspartate Amino Transf (AST/SGOT) 87H, Alanine Aminotransferase (ALT/SGPT) 53, Alkaline Phosphatase 81, Total Protein 6.6, Albumin 3.4 07/17/20 11:23: Glucometer 110 Microbiology 07/16/20 Urine Culture - Final, Complete NO GROWTH 07/15/20 MRSA Screen - Final, Complete MRSA not isolated Assessment/Plan Assessment/Plan (1) Ventricular tachycardia Status: Acute Assessment & Plan: 07/16: Cardiology consulted, appreciate recommendations, s/p cardioconversion, s/p defibrillator placement 2 weeks ago 07/17: SR today, Cardiology managing (2) Acute renal failure Status: Acute Assessment & Plan: 07/16: Started on dobamine today, strict I/Os, daily CMP 07/17: Cr improved, will continue to monitor (3) Non-ischemic cardiomyopathy Status: Chronic (4) NSTEMI (non-ST elevated myocardial infarction) Status: Acute (5) Nausea and vomiting Status: Resolved Assessment & Plan: 07/16: Zoan/Phenergen RITA AGUIRRE MD July 17, 2020 12:49
[2020-07-18 03:48] LABS: MEAN CORPUSCULAR VOLUME 84 fL (80-99)
[2020-07-18 03:49] LABS: BASOPHILS % (AUTO) 0 % (0-10); EOSINOPHILS # (AUTO) 0.1 10^3/uL (0.0-0.3); EOSINOPHILS % (AUTO) 1 % (0-10); HEMATOCRIT 39 % (40-54); HEMOGLOBIN 12.1 g/dL (13.3-17.7); LYMPHOCYTES # (AUTO) 0.9 10^3/uL (1.0-4.0); LYMPHOCYTES % (AUTO) 13 % (12-44); MEAN CORPUSCULAR HEMOGLOBIN 26 pg (25-34); MEAN CORPUSCULAR HGB CONC 31 g/dL (32-36); MEAN PLATELET VOLUME 10.3 fL (9.0-12.2); MONOCYTES # (AUTO) 0.9 10^3/uL (0.0-1.0); MONOCYTES % (AUTO) 13 % (0-12); NEUTROPHILS # (AUTO) 4.7 10^3/uL (1.8-7.8); NEUTROPHILS % (AUTO) 72 % (42-75); PLATELET COUNT 138 10^3/uL (130-400); WHITE BLOOD COUNT 6.5 10^3/uL (4.3-11.0)
[2020-07-18 03:56] LABS: CHLORIDE 98 MMOL/L (98-107); POTASSIUM 4.2 MMOL/L (3.6-5.0); SODIUM 134 MMOL/L (135-145)
[2020-07-18 03:57] LABS: CALCIUM 8.6 MG/DL (8.5-10.1)
[2020-07-18 03:58] LABS: GLUCOSE 109 MG/DL (70-105)
[2020-07-18 03:59] LABS: CARBON DIOXIDE 25 MMOL/L (21-32)
[2020-07-18 04:02] LABS: CREATININE SERUM 1.45 MG/DL (0.60-1.30); GFR ESTIMATED > 60; PHOSPHORUS 3.1 MG/DL (2.3-4.7)
[2020-07-18 04:03] LABS: BUN/CREATININE RATIO 13
[2020-07-18 04:04] LABS: MAGNESIUM 1.8 MG/DL (1.6-2.4)
--- NOTE | 2020-07-18 04:50 | Pulmonary Progress Note ---
ANGELES LAWSON MED STUDENT 07/18/20 0450: Subjective Date Seen by a Provider: July 18, 2020 Subjective/Events-last exam Patient denies chest pain, SOB, fevers,chills, and headaches. He has no questions at present time. VSS per monitor. Review of Systems General: No Chills, No Night Sweats HEENT: No Head Aches, No Visual Changes Pulmonary: No Dyspnea, No Cough Cardiovascular: No: Chest Pain, Palpitations Gastrointestinal: No: Nausea, Vomiting Genitourinary: No Dysuria, No Frequency Musculoskeletal: No: neck pain, back pain Neurological: No: Weakness, Numbness Sepsis Event Evaluation Height, Weight, BMI Height: '" Weight: lbs. oz. kg; 26.74 BMI Method: Focused Exam Lactate Level 07/16/20 05:30: Lactic Acid Level 1.63 Exam Exam Vital Signs Date Time Temp Pulse Resp B/P (MAP) Pulse Ox O2 Delivery O2 Flow Rate FiO2 07/18/20 04:00 100 Nasal Cannula 07/18/20 03:00 65 32 120/77 (86) 96 Nasal Cannula 2.00 07/18/20 02:00 63 22 120/74 (93) 91 Nasal Cannula 2.00 07/18/20 01:20 64 07/18/20 01:00 66 22 131/85 (100) 99 Nasal Cannula 2.00 07/18/20 00:00 66 39 124/81 (96) 98 Nasal Cannula 2.00 07/18/20 00:00 100 Nasal Cannula 2.00 07/17/20 21:38 Nasal Cannula 2.00 07/17/20 20:00 100 Nasal Cannula 2.00 07/17/20 20:00 62 38 131/84 (100) 100 Nasal Cannula 2.00 07/17/20 19:00 74 07/17/20 17:00 70 40 126/82 (97) 93 Nasal Cannula 2.00 07/17/20 16:18 36.3 07/17/20 16:00 69 16 152/100 (117) 99 Nasal Cannula 2.00 07/17/20 12:43 75 07/17/20 12:00 35.8 07/17/20 12:00 75 37 104/70 (81) 98 Nasal Cannula 2.00 07/17/20 10:57 Nasal Cannula 2.00 07/17/20 08:26 100 Nasal Cannula 2.00 07/17/20 08:00 35.8 07/17/20 08:00 72 17 126/91 (103) 100 Nasal Cannula 2.00 07/17/20 06:41 76 07/17/20 06:00 70 32 110/70 (83) 97 Nasal Cannula 2.00 07/17/20 05:00 72 17 114/74 (87) 99 Nasal Cannula 2.00 I & O 07/18/20 07:00 Intake Total 1520 ml Output Total 1200 ml Balance 320 ml Height & Weight Height: '" Weight: lbs. oz. kg; 26.74 BMI Method: General Appearance: No Apparent Distress HEENT: PERRL/EOMI, Moist Mucous Membranes Neck: Full Range of Motion, Non Tender Respiratory: Chest Non Tender, Lungs Clear, Normal Breath Sounds, No Accessory Muscle Use, No Respiratory Distress Cardiovascular: Regular Rate, Rhythm, No Edema, Normal Peripheral Pulses Capillary Refill: Less Than 3 Seconds Peripheral Pulses: 2+ Dorsalis Pedis (R), 2+ Left Dors-Pedis (L), 2+ Radial Pulses (R), 2+ Radial Pulses (L) Gastrointestinal: normal bowel sounds, non tender, soft Extremity: Normal Capillary Refill, No Calf Tenderness, No Pedal Edema Neurologic/Psychiatric: Alert, Oriented x3, No Motor/Sensory Deficits, Normal Mood/Affect Skin: Normal Color, Warm/Dry Lymphatic: No Adenopathy Results Lab Laboratory Tests 07/16/20 05:30 07/16/20 09:45 07/17/20 02:11 07/18/20 03:40 Assessment/Plan Assessment/Plan VTach s/p cardioversion -AICD placed 2wks ago -Cardiology following Acute renal failure- -Creatinine improving -Continue to monitor Hx of CHF -Cardilogy following Hx of methamphetamine use Hypotension- Resolved GI prophylaxis -Protonix EZEQUIEL HERRERA DO 07/18/20 0539: Assessment/Plan Assessment/Plan VTach s/p cardioversion -AICD placed 2wks ago -Cardiology following -Possible home today Acute renal failure- -Creatinine improving -Continue to monitor Hx of CHF -Cardilogy following Hx of methamphetamine use Hypotension- Resolved GI prophylaxis -Protonix Supervisory-Addendum Brief Verification & Attestation Participated in pt care: history, MDM, physical Personally performed: exam, history, MDM Care discussed with: Medical Student Procedures: n/a Procedure type: I&D Results interpretation: Verified all documentation Verification and Attestation of Medical Student E/M Service A medical student performed and documented this service in my presence. I reviewed and verified all information documented by the medical student and made modifications to such information, when appropriate. I personally performed the physical exam and medical decision making. Ezequiel Herrera, July 18, 2020,05:39 ANGELES LAWSON MED STUDENT July 18, 2020 04:50 EZEQUIEL HERRERA DO July 18, 2020 05:39
[2020-07-18] MEDS: CATHETER FLUSH 10 ML SYR IV SCH (06:11)
[2020-07-18] MEDS: AMIODARONE 200 MG (CORDARONE) TAB PO SCH (08:48)
[2020-07-18] MEDS: PANTOPRAZOLE 40 MG (PROTONIX) VIAL IV SCH (08:49)
--- NOTE | 2020-07-18 09:16 | Physician Query Clarification ---
PQ-Uncertain Diagnosis Admission/Discharge Admission Date: July 15, 2020 at 13:01 Discharge Date: Dr. Enciso, The medical record reflects the following clinical scenario: History/Risk Factors: Ventricular tachycardia, ATN, cardiomyopathy, HTN w/chronic systolic CHF Clinical Findings: troponin 0.129 on 07/16 Treatment: IVP zofran, Amiodarone 400 mg PO, Coreg 625 mg PO Question: Is NSTEMI a clinically valid diagnosis? NSTEMI was documented in the 07/16, 07/[address] Anton with no further documentation in the medical record. Please document a response in Progress Note or Discharge Summary. 1. Yes, clinically valid, condition resolved. 2. No, condition ruled out. 3. Other, with explanation of clinical findings. 4. Undetermined, no explanation for clinical findings. PHYSICIAN RESPONSE Diagnosis clinically valid: Other, explanation/clinical finding Explanation of clincal finding type II DE secondary to heart failure Please remember a lack of response to the above will prompt a phone page by [facility]/Coding staff. In responding to this query, please exercise your independent professional judgment. The purpose of this communication is to more accurately reflect the complexity of your patients condition. The fact that a question is asked does not imply that any particular answer is desired or expected. Thank you for your timely response to this clarification. Requestors name: Nikki THIS PHYSICIAN QUERY FORM IS A PERMANENT PART OF THE MEDICAL RECORD NIKKI GONZALEZ July 18, 2020 09:16 FLORA ENCISO MD July 18, 2020 16:59
[2020-07-18] MEDS ORDERED: PANT40SU PO (09:22)
[2020-07-18] MEDS ORDERED: AMIO200T6 PO (09:22)
--- NOTE | 2020-07-18 09:25 | Cardiology Progress Note ---
Subjective Date Seen by Provider: July 18, 2020 Time Seen by Provider: 09:24 Subjective/Events-last exam Patient is laying down in bed, feeling better. No new complaint. Review of Systems General: No Chills, No Night Sweats, No Fatigue, No Malaise, No Appetite, No Other HEENT: No Head Aches, No Visual Changes, No Eye Pain, No Ear Pain, No Dysphasia, No Sinus Congestion, No Post Nasal Drip, No Sore Throat, No Other Pulmonary: No Dyspnea, No Cough, No Pleuritic Chest Pain, No Other Cardiovascular: No: Chest Pain, Palpitations, Orthopnea, Paroxysmal Noc. Dyspnea, Edema, Lt Headedness, Other Focused Exam Lactate Level 07/16/20 05:30: Lactic Acid Level 1.63 Objective-Cardiology Exam Last Set of Vital Signs Vital Signs 07/18/20 07/18/20 08:00 08:13 Temp 36.0 Pulse 68 Resp 34 B/P (MAP) 133/97 (109) Pulse Ox 96 O2 Delivery Nasal Cannula O2 Flow Rate 2.00 Capillary Refill : Less Than 3 Seconds I&O Intake and Output 07/18/20 00:00 Intake Total 2020 ml Output Total 1450 ml Balance 570 ml Intake Oral 2020 ml Output Urine Total 1450 ml # Bowel Movements 1 General: Alert, Oriented X3, Cooperative, No Acute Distress HEENT: Atraumatic, PERRLA Neck: Supple, No JVD, No Thyromegaly Lungs: Clear to Auscultation, Normal Air Movement Heart: Regular Rate, No Murmurs Abdomen: Normal Bowel Sounds, Soft, No Tenderness, No Masses Extremities: No Edema, No Tenderness/Swelling Skin: No Rashes, No Breakdown Neuro: Normal Speech, Sensation Intact, Cranial Nerves 3-12 NL Psych/Mental Status: Mental Status NL, Mood NL Results Lab Laboratory Tests 07/18/20 03:40 A/P-Cardiology Admission Diagnosis Ventricular tachycardia Congestive heart failure, chronic compensated left ventricular systolic dysfunction, nonischemic cardiomyopathy Hypertension Hyperlipidemia Assessment/Plan Wide-complex tachycardia, most probably ventricular tachycardia. Magnet was placed on his defibrillator without change in the rhythm. Adenosine 6 then 12 mg delivered without any change in the rhythm Amiodarone 150 mg bolus were given which likely slowing down his rate from 170- 158 with wide-complex tachycardia Lopressor 5 mg IV push were given which slows down his rate 130 with wide- complex tachycardia then broke down back to sinus rhythm with left bundle branch block Continue on amiodarone, tolerating it well. Status post hypotension, better today. Okay for discharge Acute renal failure, probably acute tubular necrosis due to hypovolemia and low cardiac output. Renal functions improving, continue to monitor as an outpatient Nausea vomiting, probably secondary to uremia. Feeling better today. Continue to monitor Congestive heart failure, chronic compensated left ventricular systolic dysfunction, nonischemic cardiomyopathy Cardiac catheterization was carried out in November 2019 showing mild coronary artery disease nonobstructive disease Hypertension, status post hypotensive episode. Restarted on Coreg, losartan was discontinued due to the renal failure. Monitor closely Hyperlipidemia, monitor lipids FLORA MAGDALENO MD July 18, 2020 9:25 am
--- NOTE | 2020-07-18 09:57 | Discharge Summary ---
Diagnosis/Chief Complaint Date of Admission July 15, 2020 at 13:01 Date of Discharge 07/18/2020 Admission Diagnosis Admission Diagnosis See problem list Discharge Diagnosis See below Problems/Diagnosis: (1) Ventricular tachycardia Assessment & Plan: 07/16: Cardiology consulted, appreciate recommendations, s/p cardioconversion, s/p defibrillator placement 2 weeks ago 07/17: SR today, Cardiology managing 07/18: Continued in SR with PO medications, new scripts sent to pharm Status: Acute (2) Acute renal failure Assessment & Plan: 07/16: Started on dobamine today, strict I/Os, daily CMP 07/17: Cr improved, will continue to monitor 07/18: Cr much improved, recommend f.u labs in 1 week Status: Acute (3) Non-ischemic cardiomyopathy Status: Chronic (4) NSTEMI (non-ST elevated myocardial infarction) Status: Acute (5) Nausea and vomiting Assessment & Plan: 07/16: Zofran/Phenergen PRN Status: Resolved Resolution Date/Time: 07/17/20 @ 12:49 Discharge Summary-Simple/Stand Consultations Dr Enciso: Cardiology Discharge Physical Examination Allergies: Coded Allergies: No Known Drug Allergies (Unverified , 10/05/19) Vitals & I&Os Vital Sign - Last 12Hours Date Time Temp Pulse Resp B/P (MAP) Pulse Ox O2 Delivery O2 Flow Rate FiO2 07/18/20 08:13 36.0 07/18/20 08:00 68 34 133/97 (109) 96 Nasal Cannula 2.00 Intake and Output 07/17/20 23:59 Intake Total 1520 ml Output Total 1200 ml Balance 320 ml General Appearance: Alert, Oriented X3, Cooperative, No Acute Distress Respiratory: Clear to Auscultation, Normal Air Movement Cardiovascular: Regular Rate, No Murmurs Abdominal: Normal Bowel Sounds, Soft, No Tenderness, No Masses Extremities: No Edema, No Tenderness/Swelling Skin: No Rashes, No Breakdown Neuro: Normal Speech, Strength at 5/5 X4 Ext, Sensation Intact, Cranial Nerves 3-12 NL Psych/Mental Status: Mental Status NL, Mood NL Hospital Course Was the Problem List Reviewed?: Yes See final discharge diagnosis. Discussion & Recommendations 40 yo M that presented in ventricular tachycardia. Patient seen by cardiology and cardioconverted with IV anti arrythmics. Patient stated in SR with PO medications. Cr trended up during admission likely due to severe hypotension and Cr improved with IVFs. Will need f.u with labs in 1 week. Patient will have close f.u with PCP and Cardiology. Discharge Condition at discharge stable Instructions to patient/family Please see electronic discharge instructions given to patient. Discharge Medications Reviewed and agree with Discharge Medication list on patient's Discharge Instruction sheet RITA VO MD July 18, 2020 09:57
--- NOTE | 2020-07-18 10:00 | Discharge Summary ---
Discharge [facility] Reconcile Patient Problems Problems Reviewed?: Yes Discharge Medications New, Converted or Re-Newed RX: Transmitted to Pharmacy New Medications: Amiodarone HCl (Amiodarone HCl) 200 Mg Tablet 200 MG PO BID, #60 TAB 2 Refills Pantoprazole Sodium (Protonix) 40 Mg Granpkt.dr 40 MG PO DAILY, #30 TAB 2 Refills Continued Medications: Aspirin (Aspirin EC) 81 Mg Tablet.dr 81 MG PO DAILY, TAB Atorvastatin Calcium (Atorvastatin Calcium) 10 Mg Tablet 10 MG PO DAILY, TAB Carvedilol (Carvedilol) 3.125 Mg Tablet 3.125 MG PO BID, TAB Furosemide (Furosemide) 40 Mg Tablet 40 MG PO DAILY, TAB Losartan Potassium (Losartan Potassium) 25 Mg Tablet 25 MG PO DAILY, TAB Patient Instructions Goal/Follow Up Appt: F.u next week with Dr Mcmahon with labs to monitor kidney function Activity & Diet Discharge Diet: Cardiac Diet Activity as Tolerated: Yes Copy Copies To 1: AMARJIT CONROY MD, HOLLY R MD July 18, 2020 10:00
[2020-07-18] MEDS ORDERED: PANTOPRAZOLE 40 MG (PROTONIX) TAB PO SCH (21:00)
== END 2020-07-18 10:55 | disposition home or self-care (01) | DRG 280 ==
LOC: EDUNIT# 10:18 → ER 10:20 → ICU 13:01
PROVIDERS: ADMIT Internal Medicine; ATTEND Family Medicine
PROC: 5A2204Z Restoration of Cardiac Rhythm, Single (ICD-10-PCS; principal; 2020-07-15)
DX: I47.2 Ventricular tachycardia (principal); I21.A1 Myocardial infarction type 2; N17.0 Acute kidney failure with tubular necrosis; I42.9 Cardiomyopathy, unspecified; I50.22 Chronic systolic (congestive) heart failure; I11.0 Hypertensive heart disease with heart failure; E87.5 Hyperkalemia; E78.5 Hyperlipidemia, unspecified; F14.10 Cocaine abuse, uncomplicated; F15.10 Other stimulant abuse, uncomplicated; F12.10 Cannabis abuse, uncomplicated; I25.10 Atherosclerotic heart disease of native coronary artery without angina pectoris; E78.00 Pure hypercholesterolemia, unspecified; I25.2 Old myocardial infarction; Z79.82 Long term (current) use of aspirin; Z95.810 Presence of automatic (implantable) cardiac defibrillator; Z86.73 Personal history of transient ischemic attack (TIA), and cerebral infarction without residual deficits; Z82.49 Family history of ischemic heart disease and other diseases of the circulatory system; Z91.19 Patient's noncompliance with other medical treatment and regimen
CPT/HCPCS: 36415; 71045; 80048; 80053; 80061; 80306; 81000; 82947; 83605; 83735; 83874; 83880; 84100; 84443; 84484; 85007; 85025; 85027; 87081; 87088; 93005; 93306

== ENCOUNTER 2021-01-24 09:42 | Emergency (ER) | payer OTHER ==
[~2021-01-24] VITALS: Ht 172.7 cm; Wt 79.1 kg
[~2021-01-24 09:42] MED LIST changes: +AMIO200T6 PO; +ATOR10TA66 PO; +PANT40SU PO; +RT-ALBUINH IH; +SPIR25TA PO
[2021-01-24 10:30] LABS: HEMATOCRIT 43 % (40-54); MEAN CORPUSCULAR HEMOGLOBIN 30 pg (25-34); MEAN CORPUSCULAR HGB CONC 33 g/dL (32-36); MEAN CORPUSCULAR VOLUME 92 fL (80-99); MEAN PLATELET VOLUME 10.6 fL (9.0-12.2); NEUTROPHILS % (AUTO) 73 % (42-75); PLATELET COUNT 231 10^3/uL (130-400); WHITE BLOOD COUNT 5.6 10^3/uL (4.3-11.0)
[2021-01-24 10:31] LABS: BASOPHILS % (AUTO) 0 % (0-10); EOSINOPHILS # (AUTO) 0.1 10^3/uL (0.0-0.3); EOSINOPHILS % (AUTO) 3 % (0-10); LYMPHOCYTES % (AUTO) 17 % (12-44); MONOCYTES # (AUTO) 0.4 X 10^3 (0.0-1.0); MONOCYTES % (AUTO) 7 % (0-12); NEUTROPHILS # (AUTO) 4.1 X 10^3 (1.8-7.8)
--- NOTE | 2021-01-24 10:32 | Diagnostic Imaging Report ---
INDICATION: Chest pain. Known cardiac disease. Comparison with 08/08/2020. FINDINGS: Portable chest shows cardiomegaly. No evidence of pulmonary edema. The lungs are well aerated and clear. ICD pacer is present appearing in good position on the left. No pneumothorax or pleural effusion. No bony abnormalities. IMPRESSION: Persistent cardiomegaly with no acute changes. Dictated by: Dictated on workstation # [id number]
[2021-01-24 10:59] LABS: CARBON DIOXIDE 25 MMOL/L (21-32); CHLORIDE 103 MMOL/L (98-107); POTASSIUM 4.2 MMOL/L (3.6-5.0); SODIUM 136 MMOL/L (135-145)
[2021-01-24 11:00] LABS: ALANINE AMINOTRANSFERASE 44 U/L (0-55); ALBUMIN 3.7 GM/DL (3.2-4.5); ALKALINE PHOSPHATASE 165 U/L (40-136); BILIRUBIN,TOTAL 0.9 MG/DL (0.1-1.0); BUN/CREATININE RATIO 12; CALCIUM 8.8 MG/DL (8.5-10.1); CREATININE SERUM 1.16 MG/DL (0.60-1.30); GFR ESTIMATED 84; GLUCOSE 119 MG/DL (70-105); TOTAL PROTEIN 6.9 GM/DL (6.4-8.2)
[2021-01-24 11:07] LABS: AMPHETAMINE SCREEN, URINE POSITIVE (NEGATIVE); BARBITURATE SCREEN URINE NEGATIVE (NEGATIVE); BENZODIAZEPINES SCREEN URINE NEGATIVE (NEGATIVE); CANNABINOID SCREEN, URINE POSITIVE (NEGATIVE); COCAINE SCREEN URINE NEGATIVE (NEGATIVE); METHADONE STAT NEGATIVE (NEGATIVE); METHAMPHETAMINE SCREEN URINE S POSITIVE (NEGATIVE); OPIATE SCREEN URINE NEGATIVE (NEGATIVE); OXYCODONE STAT NEGATIVE (NEGATIVE); PROPOXYPHENE STAT NEGATIVE (NEGATIVE); TRICYCLIC ANTIDEPRESSANTS SCRE NEGATIVE (NEGATIVE)
[2021-01-24] MEDS ORDERED: FUROSEMIDE 20 MG (LASIX) TAB PO SCH (11:30)
--- NOTE | 2021-01-24 12:23 | ED General ---
General Chief Complaint: General Problems/Pain Stated Complaint: MEDICAL CLEARANCE Nursing Triage Note: Patient presents to the ED in custody of [facility] department for medical clearance for incarceration. Patient reports he has a pacemaker/defibrillator. He states that the defibrillator has discharged a couple times but reports that this is not unusual. Source of Information: Patient, Police Exam Limitations: No Limitations History of Present Illness Date Seen by Provider: Jan 24, 2021 Time Seen by Provider: 09:45 Initial Comments Patient is a 40-year-old male with history of nonischemic cardiomyopathy with AICD placement who presents with shortness of breath and possible AICD discharge during arrest this morning. Patient states that he has been off his cardiac medications and diuretic for the past 2 days. Reports mild dyspnea with exertion and standing. He denies chest pain chest pressure or chest tightness. He denies nausea vomiting or sweats. He denies dizziness lightheadedness, orthopnea and PND. Denies increased leg pain or swelling. He does report feeling weak and dizzy following AICD discharge but symptoms have since improved. He denies any other acute symptoms or complaints. Timing/Duration: 1-3 Hours, 4-6 Hours Severity: Mild, Moderate Modifying Factors: improves with Other Associated Systoms: Other Allergies and Home Medications Allergies Coded Allergies: No Known Drug Allergies (Unverified , 10/05/19) Patient Home Medication List Home Medication List Reviewed: Yes Albuterol Sulfate (Proair Hfa) 1 Puff Puff, 2 PUFF IH Q4H Prescribed by: FLORA MAGDALENO on 08/08/20 0908 Aspirin (Aspirin EC) 81 Mg Tablet.dr, 81 MG PO DAILY, (Reported) Entered as Reported by: JERI GAY on 12/06/19 1145 Atorvastatin Calcium (Atorvastatin Calcium) 10 Mg Tablet, 10 MG PO DAILY, (Repor sakshi) Entered as Reported by: JERI GAY on 07/16/20 1235 Carvedilol (Carvedilol) 3.125 Mg Tablet, 3.125 MG PO BID, (Reported) Entered as Reported by: JERI GAY on 07/16/20 1235 Furosemide (Furosemide) 40 Mg Tablet, 40 MG PO DAILY, (Reported) Entered as Reported by: DIVYA SHOOK on 06/04/20 0944 Losartan Potassium (Losartan Potassium) 25 Mg Tablet, 25 MG PO DAILY, (Reported) Entered as Reported by: JERI GAY on 12/06/19 1145 Pantoprazole Sodium (Pantoprazole Sodium) 40 Mg Tablet.dr, 40 MG PO DAILY, (Reported) Entered as Reported by: JERI GAY on 08/07/20 1626 Spironolactone (Aldactone) 25 Mg Tablet, 25 MG PO DAILY Prescribed by: FLORA MAGDALENO on 08/08/20 0908 Review of Systems Review of Systems Constitutional: see HPI EENTM: see HPI Respiratory: see HPI Cardiovascular: see HPI Gastrointestinal: see HPI Genitourinary: see HPI Musculoskeletal: see HPI Skin: see HPI Psychiatric/Neurological: See HPI Hematologic/Lymphatic: See HPI Immunological/Allergic: see HPI All Other Systems Reviewed Negative Unless Noted: Yes Past Iqhifve-Qmcort-[place] Hx Patient Social History Tobacco Use?: No Use of E-Cig and/or Vaping dev: No Substance use?: Yes Substance type: Methamphetamine Alcohol Use?: Yes Alcohol Frequency: Once in a while Pt feels they are or have been: No Immunizations Up To Date Tetanus Booster (TDap): Unknown Seasonal Allergies Seasonal Allergies: Yes (USE INHALER) Past Medical History Surgeries: Yes (CARDIAC CATH 11/2019--NO INTERVENTION;ICD/DEFIBRILLATOR 06/04/20) Cardiac, Defibrillator Respiratory: Yes Asthma Currently Using CPAP: No Currently Using BIPAP: No Cardiac: Yes (CHF-NEEDS LIFEVEST/REFUSES TO WEAR;NSTEMI;EF10%;LBBB;DEFIBRILLATOR 06/04/20) Cardiomyopathy, Chronic Edema/Swelling, Coronary Artery Disease, Heart Attack, High Cholesterol, Hypertension Neurological: Yes Stroke Sexually Transmitted Disease: Yes (CHLAMYDIA; GONORRHEA 10/05/19) Genitourinary: No Gastrointestinal: No Musculoskeletal: No Endocrine: No HEENT: No Cancer: No Psychosocial: Yes (SUBSTANCE ABUSE) Integumentary: No Blood Disorders: No Family Medical History Asthma AUNT Hypertension MOTHER No Pertinent Family Hx HAS BEEN OUT OF SNF SINCE 2019 VERY NON-COMPLIANT IN ALL ASPECTS OF CARE NEEDS LIFE VEST-=-REFUSES TO WEAR; NSTEMI; EF 10%; LBBB ICD/DEFIBRILLATOR PLACED BY DR. MAGDALENO 06/04/20 SOCIAL HISTORY: -ETOH-RARELY USES -DRUGS--METH, COCAINE, THC. DENIES IV USE-STATES HE SMOKES THEM -NO TOBACCO PAST SURGICAL HISTORY: -CARDIAC CATH 11/2019--NO INTERVENTION -ICD DEFIBRILLATOR PLACED 06/04/[address] MAGDALENO ECHOCARDIOGRAM 05/17/2020 Physical Exam Vital Signs Vital Signs - First Documented 01/24/21 09:45 Temp 36.7 Pulse 59 Resp 18 B/P (MAP) 158/108 (125) Pulse Ox 91 O2 Delivery Room Air Capillary Refill : Less Than 3 Seconds Height, Weight, BMI Height: '" Weight: lbs. oz. kg; 26.00 BMI Method: General Appearance: No Apparent Distress, WD/WN, Anxious, Other (Tearful) Eyes: Bilateral Eye Normal Inspection, Bilateral Eye PERRL, Bilateral Eye EOMI HEENT: PERRL/EOMI, Normal ENT Inspection Neck: Non Tender, Supple Respiratory: Chest Non Tender, Lungs Clear Cardiovascular: No Edema Gastrointestinal: No Pulsatile Mass, Non Tender, Soft Extremity: Normal Capillary Refill, Normal Inspection, Non Tender Neurologic/Psychiatric: Alert, Oriented x3, No Motor/Sensory Deficits, Normal Mood/Affect, drum reel cutter II-XII Norm as Tested Skin: Normal Color Focused Exam Sepsis Stage: Ruled Out Progress/Results/Core Measures Suspected Sepsis SIRS Temperature: Pulse: 59 Respiratory Rate: 18 Laboratory Tests 01/24/21 10:20: White Blood Count 5.6 Blood Pressure 158 /108 Mean: 125 Laboratory Tests 01/24/21 10:20: Creatinine 1.16, Platelet Count 231, Total Bilirubin 0.9 Results/Orders Lab Results Laboratory Tests Test 01/24/21 10:20 01/24/21 10:35 Range/Units White Blood Count 5.6 4.3-11.0 10^3/uL Red Blood Count 4.67 4.30-5.52 10^6/uL Hemoglobin 14.0 13.3-17.7 g/dL Hematocrit 43 40-54 % Mean Corpuscular Volume 92 80-99 fL Mean Corpuscular Hemoglobin 30 25-34 pg Mean Corpuscular Hemoglobin Concent 33 32-36 g/dL Red Cell Distribution Width 14.5 10.0-14.5 % Platelet Count 231 130-400 10^3/uL Mean Platelet Volume 10.6 9.0-12.2 fL Immature Granulocyte % (Auto) 0 % Neutrophils (%) (Auto) 73 42-75 % Lymphocytes (%) (Auto) 17 12-44 % Monocytes (%) (Auto) 7 0-12 % Eosinophils (%) (Auto) 3 0-10 % Basophils (%) (Auto) 0 0-10 % Neutrophils # (Auto) 4.1 1.8-7.8 X 10^3 Lymphocytes # (Auto) 1.0 1.0-4.0 X 10^3 Monocytes # (Auto) 0.4 0.0-1.0 X 10^3 Eosinophils # (Auto) 0.1 0.0-0.3 10^3/uL Basophils # (Auto) 0.0 0.0-0.1 10^3/uL Immature Granulocyte # (Auto) 0.0 0.0-0.1 10^3/uL Sodium Level 136 135-145 MMOL/L Potassium Level 4.2 3.6-5.0 MMOL/L Chloride Level 103 98-107 MMOL/L Carbon Dioxide Level 25 21-32 MMOL/L Anion Gap 8 5-14 MMOL/L Blood Urea Nitrogen 14 7-18 MG/DL Creatinine 1.16 0.60-1.30 MG/DL Estimat Glomerular Filtration Rate 84 BUN/Creatinine Ratio 12 Glucose Level 119 H 70-105 MG/DL Calcium Level 8.8 8.5-10.1 MG/DL Corrected Calcium 9.0 8.5-10.1 MG/DL Total Bilirubin 0.9 0.1-1.0 MG/DL Aspartate Amino Transf (AST/SGOT) 55 H 5-34 U/L Alanine Aminotransferase (ALT/SGPT) 44 0-55 U/L Alkaline Phosphatase 165 H 40-136 U/L Troponin I < 0.30 <0.30 NG/ML Pro-B-Type Natriuretic Peptide 4703.0 H <75.0 PG/ML Total Protein 6.9 6.4-8.2 GM/DL Albumin 3.7 3.2-4.5 GM/DL Urine Opiates Screen NEGATIVE NEGATIVE Urine Oxycodone Screen NEGATIVE NEGATIVE Urine Methadone Screen NEGATIVE NEGATIVE Urine Propoxyphene Screen NEGATIVE NEGATIVE Urine Barbiturates Screen NEGATIVE NEGATIVE Ur Tricyclic Antidepressants Screen NEGATIVE NEGATIVE Urine Phencyclidine Screen NEGATIVE NEGATIVE Urine Amphetamines Screen POSITIVE H NEGATIVE Urine Methamphetamines Screen POSITIVE H NEGATIVE Urine Benzodiazepines Screen NEGATIVE NEGATIVE Urine Cocaine Screen NEGATIVE NEGATIVE Urine Cannabinoids Screen POSITIVE H NEGATIVE My Orders Orders - TAMI OLEARY DO Cbc With Automated Diff (01/24/21 10:10) Comprehensive Metabolic Panel (01/24/21 10:10) Troponin I Fs (01/24/21 10:10) Chest 1 View Ap/Pa Only (01/24/21 10:10) Probnp Fs (01/24/21 10:10) Ekg Tracing (01/24/21 10:13) Drug Screen Stat (Urine) (01/24/21 10:11) Furosemide Tablet (Lasix Tablet) (01/25/21 09:00) Furosemide Tablet (Lasix Tablet) (01/24/21 11:30) Vital Signs/I&O 01/24/21 09:45 Temp 36.7 Pulse 59 Resp 18 B/P (MAP) 158/108 (125) Pulse Ox 91 O2 Delivery Room Air Capillary Refill : Less Than 3 Seconds Blood Pressure Mean: 125 Departure Communication (Admissions) EKG: LVH with bundle branch block, nonspecific T wave changes Chest x-ray: No acute cardiopulmonary disease. Patient with mild dyspnea with emotional upset. He is currently asymptomatic in the ED. He reports AICD discharge which occurs commonly. He did not have chest pain prior to or following AICD discharge and it was not associated with syncope. Labs reviewed and oral Lasix given. Patient monitored in the ED without event. 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 He is instructed to avoid methamphetamine and illicit all illicit drug use. Patient verbalizes understanding agreement of discharge instructions prior to departure. Impression Primary Impression: Dyspnea Additional Impressions: AICD discharge Noncompliance with medications Polysubstance abuse Disposition: 01 HOME, SELF-CARE Condition: Stable Departure-Patient Inst. Decision time for Depature: 12:23 Referrals: AMARJIT CONROY MD (PCP/Family) Primary Care Physician Patient Instructions: Polysubstance Use Disorder, Shortness of Breath, Adult ED Add. Discharge Instructions: You were evaluated in the emergency department for shortness of breath and AICD discharge. Lab and imaging studies were performed. Please avoid all illegal drugs and resume home medications upon return home from the emergency department today. Contact your yard supervisor cotton gin in the next 24 hours to arrange follow-up appo intment in the next 1 to 2 days and reevaluation of AICD. Return to the ED if new or worsening symptoms. All discharge instructions reviewed with patient and/or family. Voiced understanding. TAMI OLEARY DO Jan 24, 2021 12:23
[2021-01-24] MEDS ORDERED: cloNIDine 0.1 MG (CATAPRES) TAB PO ONE (12:45)
[2021-01-24] MEDS ORDERED: SPIRONOLACTONE 100 MG (ALDACTONE) TABLET PO ONE (12:45)
[2021-01-24 13:22] VITALS: BP 144/98
[2021-01-25] MEDS ORDERED: FUROSEMIDE 20 MG (LASIX) TAB PO SCH (09:00)
== END 2021-01-24 13:24 | disposition home or self-care (01) ==
LOC: EDUNIT# 09:42 → ER FS 09:44
DX: R06.00 Dyspnea, unspecified (principal); F19.10 Other psychoactive substance abuse, uncomplicated; J45.909 Unspecified asthma, uncomplicated; I11.0 Hypertensive heart disease with heart failure; I50.9 Heart failure, unspecified; I25.2 Old myocardial infarction; I25.10 Atherosclerotic heart disease of native coronary artery without angina pectoris; Z91.14 Patient's other noncompliance with medication regimen; Z86.73 Personal history of transient ischemic attack (TIA), and cerebral infarction without residual deficits; Z79.82 Long term (current) use of aspirin; Z79.899 Other long term (current) drug therapy
CPT/HCPCS: 36415; 71045; 80053; 80306; 83880; 84484; 85025; 93005

== ENCOUNTER 2021-03-07 21:40 | Inpatient (IN) | payer MEDICAID, OTHER ==
[~2021-03-07] VITALS: Ht 172.7 cm; Wt 79.0 kg
[~2021-03-07 21:40] MED LIST changes: -AMIO200T6 PO; +AMIO200T65 PO; +POTA-160 PO; -POTA10TA6 PO
--- NOTE | 2021-03-07 21:48 | ED Dyspnea ---
General Stated Complaint: SOA History of Present Illness Date Seen by Provider: Mar 07, 2021 Time Seen by Provider: 21:43 Initial Comments 41-year-old male presents with shortness of breath. Patient reports that he is got chronic shortness of breath but has been worse for maybe a week or 2. Patient has a history of congestive heart failure. He does have a defibrillator. He is unsure of the diagnosis of why he needs a defibrillator and has CHF. He takes Lasix daily and took 1 this morning. Patient has mild cough. He is unsure if he has any fevers or chills. Patient is actually very poor historian. He is unsure of exactly what medicine he takes or his diagnosis. Allergies and Home Medications Allergies Coded Allergies: No Known Drug Allergies (Unverified , 10/05/19) Patient Home Medication List Home Medication List Reviewed: Yes Albuterol Sulfate (Proair Hfa) 1 Puff Puff, 2 PUFF IH Q4H Prescribed by: FLORA MAGDALENO on 08/08/20 0908 Aspirin (Aspirin EC) 81 Mg Tablet., 81 MG PO DAILY, (Reported) Entered as Reported by: JERI GAY on 12/06/19 1145 Atorvastatin Calcium (Atorvastatin Calcium) 10 Mg Tablet, 10 MG PO DAILY, (Reported) Entered as Reported by: JERI GAY on 07/16/20 1235 Carvedilol (Carvedilol) 3.125 Mg Tablet, 3.125 MG PO BID, (Reported) Entered as Reported by: JERI GAY on 07/16/20 1235 Furosemide (Furosemide) 40 Mg Tablet, 40 MG PO DAILY, (Reported) Entered as Reported by: DIVYA SHOOK on 06/04/20 0944 Losartan Potassium (Losartan Potassium) 25 Mg Tablet, 25 MG PO DAILY, (Reported) Entered as Reported by: JERI GAY on 12/06/19 1145 Pantoprazole Sodium (Pantoprazole Sodium) 40 Mg Tablet., 40 MG PO DAILY, (Reported) Entered as Reported by: JERI AGY on 08/07/20 1626 Spironolactone (Aldactone) 25 Mg Tablet, 25 MG PO DAILY Prescribed by: FLORA MAGDALENO on 08/08/20 0908 Review of Systems Review of Systems Constitutional: No chills, No fever Respiratory: cough, short of breath Cardiovascular: see HPI; No chest pain, No palpitations Gastrointestinal: No abdominal pain, No nausea, No vomiting Musculoskeletal: no symptoms reported Skin: no symptoms reported Psychiatric/Neurological: No Symptoms Reported Endocrine: No Symptoms Reported Hematologic/Lymphatic: No Symptoms Reported Past Wrhyblt-Dnnzqm-Ndhrqf Hx Immunizations Up To Date Tetanus Booster (TDap): Unknown Seasonal Allergies Seasonal Allergies: Yes (USE INHALER) Past Medical History Surgeries: Yes (CARDIAC CATH 11/2019--NO INTERVENTION;ICD/DEFIBRILLATOR 06/04/20) Cardiac, Defibrillator Respiratory: Yes Asthma Currently Using CPAP: No Currently Using BIPAP: No Cardiac: Yes (CHF-NEEDS LIFEVEST/REFUSES TO WEAR;NSTEMI;EF10%;LBBB;DEFIBRILLATOR 06/04/20) Cardiomyopathy, Chronic Edema/Swelling, Coronary Artery Disease, Heart Attack, High Cholesterol, Hypertension Neurological: Yes Stroke Sexually Transmitted Disease: Yes (CHLAMYDIA; GONORRHEA 10/05/19) Genitourinary: No Gastrointestinal: No Musculoskeletal: No Endocrine: No HEENT: No Cancer: No Psychosocial: Yes (SUBSTANCE ABUSE) Integumentary: No Blood Disorders: No Family Medical History No Pertinent Family Hx HAS BEEN OUT OF [facility] SINCE 2018 VERY NON-COMPLIANT IN ALL ASPECTS OF CARE NEEDS LIFE VEST-=-REFUSES TO WEAR; NSTEMI; EF 10%; LBBB ICD/DEFIBRILLATOR PLACED BY DR. MAGDALENO 06/04/20 SOCIAL HISTORY: -ETOH-RARELY USES -DRUGS--METH, COCAINE, THC. DENIES IV USE-STATES HE SMOKES THEM -NO TOBACCO PAST SURGICAL HISTORY: -CARDIAC CATH 11/2019--NO INTERVENTION -ICD DEFIBRILLATOR PLACED 06/04/[address] MAGDALENO ECHOCARDIOGRAM 05/17/2020 Physical Exam Vital Signs Vital Signs - First Documented 03/07/21 22:12 Temp 36.4 Pulse 101 Resp 26 B/P (MAP) 120/91 (101) Pulse Ox 74 O2 Delivery Room Air Capillary Refill : Height, Weight, BMI Height: '" Weight: lbs. oz. kg; 26.00 BMI Method: General Appearance: Anxious, Mild Distress Neck: Normal Inspection Respiratory: No Accessory Muscle Use, No Respiratory Distress, Decreased Breath Sounds Cardiovascular: Regular Rate, Rhythm, No Edema Gastrointestinal: Non Tender, Soft Neurologic/Psychiatric: Alert, Oriented x3, No Motor/Sensory Deficits, Normal Mood/Affect, operations boardman II-XII Norm as Tested Skin: Normal Color, Warm/Dry Progress/Results/Core Measures Results/Orders Lab Results Laboratory Tests Test 03/07/21 21:52 03/07/21 22:34 03/07/21 22:42 Range/Units White Blood Count 3.1 L 4.3-11.0 10^3/uL Red Blood Count 4.69 4.30-5.52 10^6/uL Hemoglobin 13.3 13.3-17.7 g/dL Hematocrit 42 40-54 % Mean Corpuscular Volume 89 80-99 fL Mean Corpuscular Hemoglobin 28 25-34 pg Mean Corpuscular Hemoglobin Concent 32 32-36 g/dL Red Cell Distribution Width 15.0 H 10.0-14.5 % Platelet Count 199 130-400 10^3/uL Mean Platelet Volume 10.1 9.0-12.2 fL Immature Granulocyte % (Auto) 0 % Neutrophils (%) (Auto) 48 42-75 % Lymphocytes (%) (Auto) 38 12-44 % Monocytes (%) (Auto) 13 H 0-12 % Eosinophils (%) (Auto) 0 0-10 % Basophils (%) (Auto) 1 0-10 % Neutrophils # (Auto) 1.5 L 1.8-7.8 X 10^3 Lymphocytes # (Auto) 1.2 1.0-4.0 X 10^3 Monocytes # (Auto) 0.4 0.0-1.0 X 10^3 Eosinophils # (Auto) 0.0 0.0-0.3 10^3/uL Basophils # (Auto) 0.0 0.0-0.1 10^3/uL Immature Granulocyte # (Auto) 0.0 0.0-0.1 10^3/uL Neutrophils % (Manual) 46 % Lymphocytes % (Manual) 20 % Monocytes % (Manual) 17 % Eosinophils % (Manual) 0 % Basophils % (Manual) 2 % Band Neutrophils 1 % Atypical Lymphocytes 14 % D-Dimer 1.41 H 0.00-0.49 UG/ML Sodium Level 134 L 135-145 MMOL/L Potassium Level 4.4 3.6-5.0 MMOL/L Chloride Level 97 L 98-107 MMOL/L Carbon Dioxide Level 27 21-32 MMOL/L Anion Gap 10 5-14 MMOL/L Blood Urea Nitrogen 16 7-18 MG/DL Creatinine 1.45 H 0.60-1.30 MG/DL Estimat Glomerular Filtration Rate 64 BUN/Creatinine Ratio 11 Glucose Level 95 70-105 MG/DL Calcium Level 8.0 L 8.5-10.1 MG/DL Corrected Calcium 8.6 8.5-10.1 MG/DL Magnesium Level 1.7 1.6-2.4 MG/DL Total Bilirubin 0.8 0.1-1.0 MG/DL Aspartate Amino Transf (AST/SGOT) 135 H 5-34 U/L Alanine Aminotransferase (ALT/SGPT) 70 H 0-55 U/L Alkaline Phosphatase 176 H 40-136 U/L Troponin I 0.34 *H <0.30 NG/ML C-Reactive Protein 1.79 H <0.50 MG/DL Pro-B-Type Natriuretic Peptide 4391.0 H <75.0 PG/ML Total Protein 7.7 6.4-8.2 GM/DL Albumin 3.2 3.2-4.5 GM/DL Blood Gas Puncture Site LT RADIAL Blood Gas Patient Temperature 36.4 Arterial Blood pH 7.50 H 7.37-7.43 Arterial Blood Partial Pressure CO2 35 35-45 MMHG Arterial Blood Partial Pressure O2 212 H 79-93 MMHG Arterial Blood HCO3 27 23-27 MMOL/L Arterial Blood Total CO2 28.4 21.0-31.0 MMOL/L Arterial Blood Oxygen Saturation 100 94-100 % Arterial Blood Base Excess 4.2 H -2.5-2.5 MMOL/L Remy Test OK Blood Gas Ventilator Setting NO Blood Gas Inspired Oxygen 10 LITERS Influenza Type A Antigen NEGATIVE NEGATIVE Influenza Type B Antigen NEGATIVE NEGATIVE SARS-CoV-2 RNA (RT-PCR) Detected H Not Detecte My Orders Orders - MARX,JANEL L DO Cbc With Automated Diff (03/07/21 21:52) Comprehensive Metabolic Panel (03/07/21 21:52) Magnesium (03/07/21 21:52) Probnp Fs (03/07/21 21:52) Crp Fs (03/07/21 21:52) Troponin I Fs (03/07/21 21:52) Influenza A & B Antigens (03/07/21 21:52) Ekg Tracing (03/07/21 21:52) Covid 19 Inhouse Test (03/07/21 21:52) Chest Pa/Lat (2 View) (03/07/21 21:52) Arterial Blood Gas (03/07/21 22:07) Fibrin Degradation Products (03/07/21 22:07) Nitroglycerin 0.4 Mg Btl 25's (Nitrostat (03/07/21 22:15) Albuterol Inhaler (Albuterol) (03/07/21 22:45) Monitor-Rhythm Ecg Trace Only (03/07/21 22:45) Aspirin Chewable Tablet (Baby Aspirin Ch (03/07/21 23:15) Manual Differential (03/07/21 21:52) Medications Given in ED Current Medications Medications Dose Ordered Sig/Nelly Route Start Time Stop Time Status Last Admin Dose Admin Albuterol Sulfate 4 PUFFS Q4HR PRN IH 03/07/21 22:45 03/08/21 03:08 DC 03/07/21 23:09 8.5 GM Aspirin 324 mg ONCE ONCE PO 03/07/21 23:15 03/07/21 23:16 DC 03/07/21 23:22 324 MG Nitroglycerin 1 TAB Q 5 MIN X 3 NEEDED PRN SL 03/07/21 22:15 03/08/21 05:14 0.4 MG Vital Signs/I&O 03/07/21 03/07/21 03/08/21 22:12 23:43 00:57 Temp 36.4 36.8 Pulse 101 89 94 Resp 26 22 18 B/P (MAP) 120/91 (101) 127/74 130/72 (91) Pulse Ox 74 91 O2 Delivery Room Air Room Air Room Air Progress Progress Note : Progress Note Patient with slight elevation of troponin. Chart review shows no prior elevation of troponin despite his significant dilated cardiomyopathy. Patient oxygen is been in the mid upper 90s throughout his stay. He is difficult to obtain a good O2 Plath and saturation, ABG showed no difficulty with oxygenation. Patient's chest x-ray shows no congestive heart failure. He does have a slightly low WBC, I would not be surprised if he does not also have a viral illness with Covid as part of the differential. Patient transferred to [facility] for observation in stable condition Initial ECG Impression Date: Mar 07, 2021 Initial ECG Impression Time: 21:55 Initial ECG Rate: 93 Initial ECG Rhythm: Normal Sinus Comment Sinus rhythm, left atrial enlargement, no acute changes Diagnostic Imaging Diagonstic Imaging: Xray Plain Films/CT/US/NM/MRI: chest Comments ate of Exam:03/07/21 CHEST PA/LAT (2 VIEW) EXAMINATION: Chest (PA and lateral). CLINICAL INDICATION: 41-year-old female, shortness of breath. COMPARISON: January 24, 2021. FINDINGS: There is a left-sided cardiac assist device with lead. There is redemonstrated cardiomegaly. There is no identified pneumothorax. There is no large pleural effusion. There is no identified focal airspace consolidation. IMPRESSION: 1. No identified acute cardiopulmonary abnormality. 2. Redemonstrated cardiomegaly. Departure Communication (Admissions) Time/Spoke to Admitting Phy: 23:10 Okay to admit, Tylenol, morphine as needed for pain, Zofran as needed for nausea. Every 6 hour troponin x2 Time/Spoke to Consulting Phy: 23:10 Admit to [facility] hospitalist for observation. Impression Primary Impression: Dyspnea Qualified Codes: R06.00 - Dyspnea, unspecified Additional Impressions: Non-ischemic cardiomyopathy Elevated troponin Disposition: 30 STILL A PATIENT Condition: Stable Admissions Decision to Admit Reason: Admit from ER (General) Decision to Admit/Date: Mar 07, 2021 Time/Decision to Admit Time: 23:10 Departure-Patient Inst. Referrals: AMARJIT CONROY MD (PCP/Family) Primary Care Physician JANEL MARX DO Mar 07, 2021 21:48
[2021-03-07 22:03] LABS: HEMATOCRIT 42 % (40-54); HEMOGLOBIN 13.3 g/dL (13.3-17.7); MEAN CORPUSCULAR HEMOGLOBIN 28 pg (25-34); MEAN CORPUSCULAR HGB CONC 32 g/dL (32-36); MEAN CORPUSCULAR VOLUME 89 fL (80-99); MEAN PLATELET VOLUME 10.1 fL (9.0-12.2); NEUTROPHILS % (AUTO) 48 % (42-75); PLATELET COUNT 199 10^3/uL (130-400); WHITE BLOOD COUNT 3.1 10^3/uL (4.3-11.0)
[2021-03-07 22:04] LABS: BASOPHILS % (AUTO) 1 % (0-10); EOSINOPHILS % (AUTO) 0 % (0-10); LYMPHOCYTES # (AUTO) 1.2 X 10^3 (1.0-4.0); LYMPHOCYTES % (AUTO) 38 % (12-44); MONOCYTES # (AUTO) 0.4 X 10^3 (0.0-1.0); MONOCYTES % (AUTO) 13 % (0-12); NEUTROPHILS # (AUTO) 1.5 X 10^3 (1.8-7.8)
[2021-03-07] MEDS: NITROGLYCERIN 0.4 MG SL TABS BTL 25'S SL PRN (22:18)
--- NOTE | 2021-03-07 22:31 | Diagnostic Imaging Report ---
EXAMINATION: Chest (PA and lateral). CLINICAL INDICATION: 41-year-old female, shortness of breath. COMPARISON: January 24, 2021. FINDINGS: There is a left-sided cardiac assist device with lead. There is redemonstrated cardiomegaly. There is no identified pneumothorax. There is no large pleural effusion. There is no identified focal airspace consolidation. IMPRESSION: 1. No identified acute cardiopulmonary abnormality. 2. Redemonstrated cardiomegaly. Dictated by: Dictated on workstation # [id number]
[2021-03-07] MEDS ORDERED: RT-ALBUTEROL HFA 8.5 GM INHALER IH PRN (22:45)
[2021-03-07 22:49] LABS: BILIRUBIN,TOTAL 0.8 MG/DL (0.1-1.0); CREATININE SERUM 1.45 MG/DL (0.60-1.30); MAGNESIUM 1.7 MG/DL (1.6-2.4); POTASSIUM 4.4 MMOL/L (3.6-5.0)
[2021-03-07 22:51] LABS: TOTAL PROTEIN 7.7 GM/DL (6.4-8.2)
[2021-03-07 22:52] LABS: ALBUMIN 3.2 GM/DL (3.2-4.5)
[2021-03-07] MEDS ORDERED: ASPIRIN 81 MG CHEW (CHILDREN'S ASA) PO ONE (23:15)
[2021-03-07 23:40] LABS: ABG BASE EXCESS 4.2 MMOL/L (-2.5-2.5); ABG OXYGEN SATURATION 100 % (94-100); ABG PCO2 35 MMHG (35-45); ABG PO2 212 MMHG (79-93); ABG TCO2 28.4 MMOL/L (21.0-31.0)
[2021-03-07 23:41] LABS: ALLENS TEST OK; INSPIRED O2 10 LITERS; PATIENT TEMP 36.4; VENTILATOR NO
[2021-03-07 23:43] LABS: ATYPICAL LYMPHOCYTES 14 %; BAND NEUTROPHILS 1 %; BASOPHILS % (MANUAL) 2 %; EOSINOPHILS % (MANUAL) 0 %; LYMPHOCYTES % (MANUAL) 20 %; MONOCYTES % (MANUAL) 17 %; NEUTROPHILS % (MANUAL) 46 %
[2021-03-08] VITALS (8 sets, daily range): BP systolic 101–138; BP diastolic 67–91
[2021-03-08] MEDS ORDERED: morphine INJ 4 MG/ML 1 ML (VIAL/SYRINGE) IV PRN (02:45)
[2021-03-08] MEDS ORDERED: ACETAMINOPHEN 500 MG TAB (TYLENOL) PO PRN (02:45)
[2021-03-08] MEDS ORDERED: RT-ALBUTEROL HFA 8.5 GM INHALER IH PRN (02:45)
[2021-03-08] MEDS: NITROGLYCERIN 0.4 MG SL TABS BTL 25'S SL PRN (05:14)
[2021-03-08] MEDS: CATHETER FLUSH 10 ML SYR IV SCH ×3 (06:04→19:55)
[2021-03-08 07:08] LABS: POTASSIUM 3.6 MMOL/L (3.6-5.0)
[2021-03-08 07:09] LABS: CALCIUM 7.8 MG/DL (8.5-10.1)
[2021-03-08 07:12] LABS: BASOPHILS % (AUTO) 1 % (0-10); EOSINOPHILS % (AUTO) 0 % (0-10); HEMATOCRIT 40 % (40-54); HEMOGLOBIN 12.8 g/dL (13.3-17.7); LYMPHOCYTES # (AUTO) 1.1 10^3/uL (1.0-4.0); LYMPHOCYTES % (AUTO) 29 % (12-44); MEAN CORPUSCULAR HEMOGLOBIN 29 pg (25-34); MEAN CORPUSCULAR HGB CONC 32 g/dL (32-36); MEAN CORPUSCULAR VOLUME 89 fL (80-99); MEAN PLATELET VOLUME 10.8 fL (9.0-12.2); MONOCYTES # (AUTO) 0.4 10^3/uL (0.0-1.0); MONOCYTES % (AUTO) 10 % (0-12); NEUTROPHILS # (AUTO) 2.3 10^3/uL (1.8-7.8); NEUTROPHILS % (AUTO) 60 % (42-75); PLATELET COUNT 222 10^3/uL (130-400); WHITE BLOOD COUNT 3.8 10^3/uL (4.3-11.0)
[2021-03-08 07:13] LABS: CREATININE SERUM 1.37 MG/DL (0.60-1.30)
[2021-03-08 07:54] LABS: TRIGLYCERIDES 85 MG/DL (<150); VLDL CHOLESTEROL 17 MG/DL (5-40)
[2021-03-08 07:59] LABS: CHOLESTEROL 110 MG/DL (< 200)
[2021-03-08 08:00] LABS: HDL CHOLESTEROL 21 MG/DL (40-60)
[2021-03-08] MEDS: ONDANSETRON 4 MG/2 ML (SDV) Z0FRAN IV PRN (09:34)
--- NOTE | 2021-03-08 10:25 | Consultation-Cardiology ---
HPI-Cardiology Cardiology Consultation: Date of Consultation 03/08/2021 Date of Admission 03/07/2021 Attending Physician Kely Firtz DO Admitting Physician Amarjit Bernard MD Consulting Physician AMARJIT CAMPOS JR, MD HPI: Time Seen by a Provider: 10:19 Chief Complaint: Reason for consultation: Heart failure and abnormal troponin level. I have been asked to see this patient due to heart failure and abnormal troponin level. He normally follows with one of my partners, Dr. Enciso. I did not actually see the patient due to his Covid status. The patient presented to [facility] emergency room with increasing shortness of breath. During his evaluation, he was found to have an elevated BNP level as well as an abnormal troponin level. He was also Covid positive. Because of his shortness of breath and abnormal cardiac enzyme levels, he was transferred to our facility for further evaluation. I did speak with his nurse of today. He still has some shortness of breath and a nonproductive cough. He has not been reporting any chest discomfort or any other specific cardiac complaints. Certain portions of this document may have been dictated utilizing voice recognition technology. Inherent to this technology, typographical and grammatical errors may exist. As much as I am diligent to identify and correct these mistakes, some errors may remain in the document. Review of Systems-Cardiology Review of Systems Other comments I did not obtain a review of systems due to his Covid status as outlined above. CCV-Xheilb-Kfrdmu Hx Patient Social History Smoking Status: Light Tobacco Smoker 2nd Hand Smoke Exposure: No Have you traveled recently?: No Alcohol Use?: Unable to obtain Substance type: Marijuana Pt feels they are or have been: No Tobacco type used: Cigarettes Immunizations Up To Date Tetanus Booster (TDap): Unknown Date of Pneumonia Vaccine: Dec 07, 2018 Date of Influenza Vaccine: Dec 06, 2019 Past Medical History PMH As described under Assessment. Family Medical History Family History: Asthma AUNT Hypertension MOTHER Allergies and Home Medications Allergies Coded Allergies: No Known Drug Allergies (Unverified , 10/05/19) Patient Home Medication List Home Medication List Reviewed: Yes Albuterol Sulfate (Proair Hfa) 1 Puff Puff, 2 PUFF IH Q4H Prescribed by: FLORA ENCISO on 08/08/20 0908 Aspirin (Aspirin EC) 81 Mg Tablet., 81 MG PO DAILY, (Reported) Entered as Reported by: JERI GAY on 12/06/19 1145 Atorvastatin Calcium (Atorvastatin Calcium) 10 Mg Tablet, 10 MG PO DAILY, (Reported) Entered as Reported by: JERI GAY on 07/16/20 1235 Carvedilol (Carvedilol) 3.125 Mg Tablet, 3.125 MG PO BID, (Reported) Entered as Reported by: JERI GAY on 07/16/20 1235 Furosemide (Furosemide) 40 Mg Tablet, 40 MG PO DAILY, (Reported) Entered as Reported by: DIVYA SHOOK on 06/04/20 0944 Losartan Potassium (Losartan Potassium) 25 Mg Tablet, 25 MG PO DAILY, (Reported) Entered as Reported by: JERI GAY on 12/06/19 1145 Pantoprazole Sodium (Pantoprazole Sodium) 40 Mg Tablet.dr, 40 MG PO DAILY, (Reported) Entered as Reported by: JERI GAY on 08/07/20 1626 Spironolactone (Aldactone) 25 Mg Tablet, 25 MG PO DAILY Prescribed by: FLORA ENCISO on 08/08/20 0908 Exam Vital Signs Vital Signs Date Time Temp Pulse Resp B/P (MAP) Pulse Ox O2 Delivery O2 Flow Rate FiO2 03/08/21 08:23 37.3 105 22 112/79 (90) 98 Room Air 03/08/21 02:18 21 Physical Exam I did not examine the patient due to his Covid status. Labs Laboratory Tests Test 03/07/21 21:52 03/07/21 22:34 03/07/21 22:42 03/08/21 06:40 Range/Units White Blood Count 3.1 L 4.3-11.0 10^3/uL Red Blood Count 4.69 4.30-5.52 10^6/uL Hemoglobin 13.3 13.3-17.7 g/dL Hematocrit 42 40-54 % Mean Corpuscular Volume 89 80-99 fL Mean Corpuscular Hemoglobin 28 25-34 pg Mean Corpuscular Hemoglobin Concent 32 32-36 g/dL Red Cell Distribution Width 15.0 H 10.0-14.5 % Platelet Count 199 130-400 10^3/uL Mean Platelet Volume 10.1 9.0-12.2 fL Immature Granulocyte % (Auto) 0 % Neutrophils (%) (Auto) 48 42-75 % Lymphocytes (%) (Auto) 38 12-44 % Monocytes (%) (Auto) 13 H 0-12 % Eosinophils (%) (Auto) 0 0-10 % Basophils (%) (Auto) 1 0-10 % Neutrophils # (Auto) 1.5 L 1.8-7.8 X 10^3 Lymphocytes # (Auto) 1.2 1.0-4.0 X 10^3 Monocytes # (Auto) 0.4 0.0-1.0 X 10^3 Eosinophils # (Auto) 0.0 0.0-0.3 10^3/uL Basophils # (Auto) 0.0 0.0-0.1 10^3/uL Immature Granulocyte # (Auto) 0.0 0.0-0.1 10^3/uL Neutrophils % (Manual) 46 % Lymphocytes % (Manual) 20 % Monocytes % (Manual) 17 % Eosinophils % (Manual) 0 % Basophils % (Manual) 2 % Band Neutrophils 1 % Atypical Lymphocytes 14 % D-Dimer 1.41 H 0.00-0.49 UG/ML Sodium Level 134 L 135-145 MMOL/L Potassium Level 4.4 3.6-5.0 MMOL/L Chloride Level 97 L 98-107 MMOL/L Carbon Dioxide Level 27 21-32 MMOL/L Anion Gap 10 5-14 MMOL/L Blood Urea Nitrogen 16 7-18 MG/DL Creatinine 1.45 H 0.60-1.30 MG/DL Estimat Glomerular Filtration Rate 64 BUN/Creatinine Ratio 11 Glucose Level 95 70-105 MG/DL Calcium Level 8.0 L 8.5-10.1 MG/DL Corrected Calcium 8.6 8.5-10.1 MG/DL Magnesium Level 1.7 1.6-2.4 MG/DL Total Bilirubin 0.8 0.1-1.0 MG/DL Aspartate Amino Transf (AST/SGOT) 135 H 5-34 U/L Alanine Aminotransferase (ALT/SGPT) 70 H 0-55 U/L Alkaline Phosphatase 176 H 40-136 U/L Troponin I 0.34 *H <0.30 NG/ML C-Reactive Protein 1.79 H <0.50 MG/DL Pro-B-Type Natriuretic Peptide 4391.0 H <75.0 PG/ML Total Protein 7.7 6.4-8.2 GM/DL Albumin 3.2 3.2-4.5 GM/DL Blood Gas Puncture Site LT RADIAL Blood Gas Patient Temperature 36.4 Arterial Blood pH 7.50 H 7.37-7.43 Arterial Blood Partial Pressure CO2 35 35-45 MMHG Arterial Blood Partial Pressure O2 212 H 79-93 MMHG Arterial Blood HCO3 27 23-27 MMOL/L Arterial Blood Total CO2 28.4 21.0-31.0 MMOL/L Arterial Blood Oxygen Saturation 100 94-100 % Arterial Blood Base Excess 4.2 H -2.5-2.5 MMOL/L Remy Test OK Blood Gas Ventilator Setting NO Blood Gas Inspired Oxygen 10 LITERS Influenza Type A Antigen NEGATIVE NEGATIVE Influenza Type B Antigen NEGATIVE NEGATIVE SARS-CoV-2 RNA (RT-PCR) Detected H Not Detecte Triglycerides Level 85 <150 MG/DL Cholesterol Level 110 < 200 MG/DL LDL Cholesterol Direct 77 1-129 MG/DL VLDL Cholesterol 17 5-40 MG/DL HDL Cholesterol 21 L 40-60 MG/DL Test 03/08/21 06:46 Range/Units White Blood Count 3.8 L 4.3-11.0 10^3/uL Red Blood Count 4.48 4.30-5.52 10^6/uL Hemoglobin 12.8 L 13.3-17.7 g/dL Hematocrit 40 40-54 % Mean Corpuscular Volume 89 80-99 fL Mean Corpuscular Hemoglobin 29 25-34 pg Mean Corpuscular Hemoglobin Concent 32 32-36 g/dL Red Cell Distribution Width 15.0 H 10.0-14.5 % Platelet Count 222 130-400 10^3/uL Mean Platelet Volume 10.8 9.0-12.2 fL Immature Granulocyte % (Auto) 1 % Neutrophils (%) (Auto) 60 42-75 % Lymphocytes (%) (Auto) 29 12-44 % Monocytes (%) (Auto) 10 0-12 % Eosinophils (%) (Auto) 0 0-10 % Basophils (%) (Auto) 1 0-10 % Neutrophils # (Auto) 2.3 1.8-7.8 10^3/uL Lymphocytes # (Auto) 1.1 1.0-4.0 10^3/uL Monocytes # (Auto) 0.4 0.0-1.0 10^3/uL Eosinophils # (Auto) 0.0 0.0-0.3 10^3/uL Basophils # (Auto) 0.0 0.0-0.1 10^3/uL Immature Granulocyte # (Auto) 0.0 0.0-0.1 10^3/uL Sodium Level 130 L 135-145 MMOL/L Potassium Level 3.6 3.6-5.0 MMOL/L Chloride Level 97 L 98-107 MMOL/L Carbon Dioxide Level 25 21-32 MMOL/L Anion Gap 8 5-14 MMOL/L Blood Urea Nitrogen 15 7-18 MG/DL Creatinine 1.37 H 0.60-1.30 MG/DL Estimat Glomerular Filtration Rate 69 BUN/Creatinine Ratio 11 Glucose Level 109 H 70-105 MG/DL Calcium Level 7.8 L 8.5-10.1 MG/DL Troponin I 0.532 *H <0.028 NG/ML ECG Impression ECG Comment Sinus tachycardia at 102 bpm with atypical left bundle branch block. Diagnosis/Problems Diagnosis/Problems (1) Acute on chronic HFrEF (heart failure with reduced ejection fraction) Assessment & Plan: Although his chest x-ray did not show overt signs of pulmonary congestion, he is short of breath and also has an elevated BNP level. I suspect he may have some component of decompensated heart failure. This is superimposed on Covid infection. I will resume his spironolactone which he was supposed to be taking at home. We are still waiting for the seating and mobility technologist to reconcile his home medications. At one point, it appears as though he may have been taking carvedilol and losartan. His blood pressure is presently somewhat soft and I am not sure he will tolerate these medications. I will also start him on intravenous furosemide and low-dose oral metoprolol succinate which may be less likely to cause hypotension than carvedilol. (2) Cardiomyopathy Assessment & Plan: He has severe nonischemic dilated cardiomyopathy. His most recent echocardiogram in May, showed an ejection fraction of 15-20%. He had a previous cardiac catheterization that did not show any signs of coronary artery disease. We will proceed as above. (3) Elevated troponin Status: Acute Assessment & Plan: This is probably a type II non-ST elevation myocardial infarction due to supply/demand mismatch from his acute respiratory failure which may be due to Covid infection as well as decompensated heart failure. (4) Mitral regurgitation Assessment & Plan: He had moderate mitral and tricuspid regurgitation on his echocardiogram from earlier this year. This is most likely functional mitral regurgitation. This will need to be followed longitudinally. I do not see any indication for follow-up echocardiogram at this time. (5) Primary hypertension Assessment & Plan: As above, I will resume his spironolactone. I will start low-dose metoprolol succinate for the failure. We will need to watch his blood pressures closely. (6) Mixed hyperlipidemia Assessment & Plan: Based on previous records, it appears as though he may have been on atorvastatin in the past. I will restart this medication. (7) Pulmonary hypertension (8) Cardiac defibrillator in situ Assessment & Plan: He did not report any device discharges in the recent past. (9) Acute kidney injury superimposed on chronic kidney disease Assessment & Plan: We will need to watch his renal function closely with the intravenous furosemide. AMARJIT CAMPOS JR, MD Mar 08, 2021 10:25
[2021-03-08] MEDS ORDERED: SPIRONOLACTONE 25 MG (ALDACTONE) TAB PO ONE (10:30)
[2021-03-08] MEDS ORDERED: FUROSEMIDE 40 MG/4 ML INJ (LASIX) IVP ONE (10:30)
[2021-03-08] MEDS: RT-ALBUTEROL HFA 8.5 GM INHALER IH SCH ×4 (10:56→21:34)
--- NOTE | 2021-03-08 11:14 | History & Physical-Hospitalist ---
History of Present Illness HPI/Chief Complaint Chief complaint: Chest pain History present illness: This is a 41-year-old -[place]ralt[place] male who presented to the [facility] with chest pressure. Elevated troponin was noted. Patient was admitted for observation and found to have COVID-19. He reports a cough and diarrhea. Robitussin with codeine and Imodium were ordered. Methamphetamine and multiple other illicit drugs were in his drug screen also. Cardiology was consulted. Source: patient Exam Limitations: no limitations Date Seen 03/08/21 Time Seen by a Provider: 12:00 Attending Physician Kely Fritz DO PCP Ricci Bernard MD Referring Physician Date of Admission Mar 08, 2021 at 01:00 Home Medications & Allergies Home Medications Reviewed patient Home Medication Reconciliation performed by pharmacy medication reconciliations finishing lab technician and/or nursing. Patients Allergies have been reviewed. Allergies Allergies Coded Allergies No Known Drug Allergies (Unverified10/05/19) Past [id number] Hx Patient Social History Marrital Status: single Employed/Student: unemployed Tobacco Use?: Yes Tobacco type used: Cigarettes Smoking Status: Light Tobacco Smoker Smokeless Tobacco Frequency: Light User Substance use?: Unable to obtain Substance type: Marijuana Alcohol Use?: Unable to obtain Pt feels they are or have been: No Immunizations Up To Date Date of Influenza Vaccine: Dec 06, 2019 First/Initial COVID19 Vaccinat: no Second COVID19 Vaccination Gaudencio: NO Tetanus Booster (TDap): Unknown Date of Pneumonia Vaccine: Dec 07, 2018 Seasonal Allergies Seasonal Allergies: Yes (USE INHALER) Current Status Advance Directives: No Communicates: Verbally Primary Language: Macanese Preferred Spoken Language: Macanese Is interpretation needed?: No Sensory deficits: Vision impairment Past Medical History Surgeries: Cardiac, Defibrillator Asthma Currently Using CPAP: No Currently Using BIPAP: No Cardiomyopathy, Chronic Edema/Swelling, Coronary Artery Disease, Heart Attack, High Cholesterol, Hypertension Stroke Sexually Transmitted Disease: Yes (CHLAMYDIA; GONORRHEA 10/05/19) Blood Disorders: No Family Medical History Asthma AUNT Hypertension MOTHER No Pertinent Family Hx HAS BEEN OUT OF [facility] SINCE 2018 VERY NON-COMPLIANT IN ALL ASPECTS OF CARE NEEDS LIFE VEST-=-REFUSES TO WEAR; NSTEMI; EF 10%; LBBB ICD/DEFIBRILLATOR PLACED BY DR. MAGDALENO 06/04/20 SOCIAL HISTORY: -ETOH-RARELY USES -DRUGS--METH, COCAINE, THC. DENIES IV USE-STATES HE SMOKES THEM -NO TOBACCO PAST SURGICAL HISTORY: -CARDIAC CATH 11/2019--NO INTERVENTION -ICD DEFIBRILLATOR PLACED 06/04/[address] MAGDALENO ECHOCARDIOGRAM 05/17/2020 Review of Systems Constitutional: see HPI, malaise, weakness EENTM: no symptoms reported Respiratory: cough Cardiovascular: chest pain Gastrointestinal: diarrhea Physical Exam Physical Exam Vital Signs Vital Signs - First Documented 03/07/21 03/08/21 22:12 02:18 Temp 36.4 Pulse 101 Resp 26 B/P (MAP) 120/91 (101) Pulse Ox 74 O2 Delivery Room Air FiO2 21 Capillary Refill : Height, Weight, BMI Height: '" Weight: lbs. oz. kg; 26.48 BMI Method: General Appearance: No Apparent Distress Eyes: Right Eye Normal Inspection, Right Eye PERRL HEENT: PERRL/EOMI, Normal ENT Inspection, Pharynx Normal, Moist Mucous Membranes Neck: Full Range of Motion, Normal Inspection, Non Tender Respiratory: Chest Non Tender, Lungs Clear, No Accessory Muscle Use, No Respiratory Distress, Decreased Breath Sounds Cardiovascular: Regular Rate, Rhythm, No Edema, No Gallop, No JVD, No Murmur, Normal Peripheral Pulses Gastrointestinal: Normal Bowel Sounds, No Organomegaly, No Pulsatile Mass, Non Tender, Soft Back: Normal Inspection, No CVA Tenderness, No Vertebral Tenderness Extremity: Normal Capillary Refill, Normal Inspection, Normal Range of Motion, Non Tender, No Calf Tenderness, No Pedal Edema Neurologic/Psychiatric: Alert, Oriented x3, No Motor/Sensory Deficits, Normal Mood/Affect Skin: Normal Color, Warm/Dry Lymphatic: No Adenopathy Results Results/Procedures Labs Laboratory Tests 03/07/21 21:52 03/08/21 06:46 Patient resulted labs reviewed. Assessment/Plan Admission Diagnosis Assessment: Chest pain Elevated troponin Cardiomyopathy history of defibrillator Meth use on drug screen COVID-19 Smoker Chronic kidney disease Hypertension Plan: Cardiology consult Supportive care Admission Status: Observation Reason for Inpatient Admission: Chest pain with elevated troponin with COVID-19 Diagnosis/Problems Diagnosis/Problems (1) Chest pain (2) Elevated troponin Status: Acute (3) COVID-19 (4) Cough (5) Diarrhea (6) Chronic kidney disease (7) Non-ischemic cardiomyopathy Status: Chronic (8) Dyspnea KELY FRITZ DO Mar 08, 2021 11:14
[2021-03-08] MEDS ORDERED: DOCUSATE SODIUM 100 MG (COLACE) CAP PO PRN (11:30)
[2021-03-08] MEDS ORDERED: ALPRAZolam 0.25 MG (XANAX) TAB PO PRN (11:30)
[2021-03-08] MEDS ORDERED: LOPERAMIDE 2 MG (IMODIUM) TABLET PO PRN (11:30)
[2021-03-08] MEDS ORDERED: CALCIUM CARBONATE 500 MG (TUMS) TAB.CHEW PO PRN (11:30)
[2021-03-08] MEDS ORDERED: diphenhydrAMINE 25 MG TAB (BENADRYL) PO PRN (11:30)
[2021-03-08 11:31] LABS: AMPHETAMINE SCREEN, URINE POSITIVE (NEGATIVE); BARBITURATE SCREEN URINE NEGATIVE (NEGATIVE); BENZODIAZEPINES SCREEN URINE NEGATIVE (NEGATIVE); CANNABINOID SCREEN, URINE POSITIVE (NEGATIVE); COCAINE SCREEN URINE NEGATIVE (NEGATIVE); METHADONE STAT NEGATIVE (NEGATIVE); METHAMPHETAMINE SCREEN URINE S POSITIVE (NEGATIVE); OPIATE SCREEN URINE NEGATIVE (NEGATIVE); OXYCODONE STAT NEGATIVE (NEGATIVE); PROPOXYPHENE STAT NEGATIVE (NEGATIVE); TRICYCLIC ANTIDEPRESSANTS SCRE NEGATIVE (NEGATIVE)
[2021-03-08] MEDS: guaiFENesin/CODEINE (ROBITUSSIN AC) 10ML UDC PO PRN ×2 (12:34→19:52)
[2021-03-08] MEDS: ENOXAPARIN 40 MG/0.4 ML (LOVENOX) SYR SC SCH (12:35)
[2021-03-08] MEDS: SENNA W/DOCUSATE (SENOKOT S) TABLET PO SCH (19:28)
[2021-03-08] MEDS ORDERED: HYDROcodone/APAP 5 MG/325 MG (LORTAB) TAB PO PRN (21:00)
[2021-03-08] MEDS: MELATONIN 3 MG TABLET PO PRN (21:27)
[2021-03-09] MEDS: RT-ALBUTEROL HFA 8.5 GM INHALER IH SCH ×6 (01:46→22:17)
[2021-03-09 03:26] VITALS: BP 116/80
[2021-03-09] MEDS: CATHETER FLUSH 10 ML SYR IV SCH ×3 (04:47→20:59)
--- NOTE | 2021-03-09 05:58 | Progress Note - Hospitalist ---
Subjective HPI/CC On Admission Date Seen by Provider: Mar 09, 2021 Time Seen by Provider: 10:37 Chief complaint: Chest pain History present illness: This is a 41-year-old -Turk[place] male who presented to the [facility] ER with chest pressure. Elevated troponin was noted. Patient was admitted for observation and found to have COVID-19. He reports a cough and diarrhea. Robitussin with codeine and Imodium were ordered. Methamphetamine and multiple other illicit drugs were in his drug screen also. Cardiology was consulted. Subjective/Events-last exam Patient doing pretty well No hypoxia Diarrhea improved Wants to sleep off his meth use Review of Systems General: Fatigue, Malaise Objective Exam Vital Signs Vital Signs Date Time Temp Pulse Resp B/P (MAP) Pulse Ox O2 Delivery O2 Flow Rate FiO2 03/09/21 18:53 Room Air 03/09/21 16:44 36.4 83 20 123/78 (93) 93 03/08/21 02:18 21 Capillary Refill : General Appearance: No Apparent Distress, WD/WN, Chronically ill Respiratory: Lungs Clear, Normal Breath Sounds Cardiovascular: Regular Rate, Rhythm Neurologic/Psychiatric: Alert, Oriented x3 Results/Procedures Lab Laboratory Tests 03/09/21 06:00 Patient resulted labs reviewed. Assessment/Plan Assessment and Plan Assess & Plan/Chief Complaint Assessment: Chest pain Elevated troponin Cardiomyopathy history of defibrillator Meth use on drug screen COVID-19 Smoker Chronic kidney disease Hypertension Plan: Cardiology consult Supportive care 03/09/2021: Continue care supportive type Diagnosis/Problems Diagnosis/Problems (1) Chest pain (2) Elevated troponin Status: Acute (3) COVID-19 (4) Cough (5) Diarrhea (6) Chronic kidney disease (7) Non-ischemic cardiomyopathy Status: Chronic (8) Dyspnea SRI SANTACRUZ DO Mar 09, 2021 05:58
[2021-03-09 06:42] LABS: BASOPHILS % (AUTO) 0 % (0-10); EOSINOPHILS % (AUTO) 0 % (0-10); HEMATOCRIT 44 % (40-54); HEMOGLOBIN 13.8 g/dL (13.3-17.7); LYMPHOCYTES # (AUTO) 1.4 10^3/uL (1.0-4.0); LYMPHOCYTES % (AUTO) 43 % (12-44); MEAN CORPUSCULAR HEMOGLOBIN 28 pg (25-34); MEAN CORPUSCULAR HGB CONC 31 g/dL (32-36); MEAN CORPUSCULAR VOLUME 90 fL (80-99); MEAN PLATELET VOLUME 10.8 fL (9.0-12.2); MONOCYTES # (AUTO) 0.3 10^3/uL (0.0-1.0); MONOCYTES % (AUTO) 9 % (0-12); NEUTROPHILS # (AUTO) 1.5 10^3/uL (1.8-7.8); NEUTROPHILS % (AUTO) 48 % (42-75); PLATELET COUNT 177 10^3/uL (130-400); WHITE BLOOD COUNT 3.2 10^3/uL (4.3-11.0)
[2021-03-09 06:57] LABS: ALBUMIN 2.8 GM/DL (3.2-4.5); POTASSIUM 3.8 MMOL/L (3.6-5.0)
[2021-03-09 06:59] LABS: TOTAL PROTEIN 6.8 GM/DL (6.4-8.2)
[2021-03-09 07:03] LABS: CREATININE SERUM 1.34 MG/DL (0.60-1.30)
[2021-03-09] MEDS: SENNA W/DOCUSATE (SENOKOT S) TABLET PO SCH ×2 (08:49→19:33)
[2021-03-09 08:52] VITALS: BP 133/97
[2021-03-09] MEDS: FUROSEMIDE 40 MG/4 ML INJ (LASIX) IVP SCH (08:58)
[2021-03-09] MEDS: SPIRONOLACTONE 25 MG (ALDACTONE) TAB PO SCH (08:58)
[2021-03-09] MEDS: ENOXAPARIN 40 MG/0.4 ML (LOVENOX) SYR SC SCH (12:48)
[2021-03-09] MEDS ORDERED: LOSARTAN 25 MG (COZAAR) TAB PO ONE (15:15)
--- NOTE | 2021-03-09 15:17 | Cardiology Progress Note ---
Progress Note-Cardiology Events since last exam Date Seen by Provider: Mar 09, 2021 Time Seen by Provider: 15:16 Events since last exam I am following him due to chronic heart failure now with superimposed Covid i nfection. I did not see the patient due to his Covid status. I did speak to his nurse of today. His respiratory status is apparently about the same but he has started to cough and raise some white sputum. He has been complaining of some chest discomfort when he coughs but has not reported chest pain when not coughing. Certain portions of this document may have been dictated utilizing voice re cognition technology. Inherent to this technology, typographical and grammatical errors may exist. As much as I am diligent to identify and correct these mistakes, some errors may remain in the document. Vitals Last set of Vitals Signs Vital Signs 03/08/21 03/09/21 03/09/21 03/09/21 02:18 08:52 13:00 14:41 Temp 36.0 Pulse 80 Resp 18 B/P (MAP) 133/97 (109) Pulse Ox 99 O2 Delivery Room Air FiO2 21 Labs Labs Laboratory Tests 03/09/21 06:00 Exam Vital Signs Vital Signs Date Time Temp Pulse Resp B/P (MAP) Pulse Ox O2 Delivery O2 Flow Rate FiO2 03/09/21 14:41 99 Room Air 03/09/21 13:00 80 03/09/21 08:52 36.0 18 133/97 (109) 03/08/21 02:18 21 Physical Exam I did not examine the patient due to his Covid status. Labs Laboratory Tests Test 03/09/21 06:00 Range/Units White Blood Count 3.2 L 4.3-11.0 10^3/uL Red Blood Count 4.89 4.30-5.52 10^6/uL Hemoglobin 13.8 13.3-17.7 g/dL Hematocrit 44 40-54 % Mean Corpuscular Volume 90 80-99 fL Mean Corpuscular Hemoglobin 28 25-34 pg Mean Corpuscular Hemoglobin Concent 31 L 32-36 g/dL Red Cell Distribution Width 15.0 H 10.0-14.5 % Platelet Count 177 130-400 10^3/uL Mean Platelet Volume 10.8 9.0-12.2 fL Immature Granulocyte % (Auto) 0 % Neutrophils (%) (Auto) 48 42-75 % Lymphocytes (%) (Auto) 43 12-44 % Monocytes (%) (Auto) 9 0-12 % Eosinophils (%) (Auto) 0 0-10 % Basophils (%) (Auto) 0 0-10 % Neutrophils # (Auto) 1.5 L 1.8-7.8 10^3/uL Lymphocytes # (Auto) 1.4 1.0-4.0 10^3/uL Monocytes # (Auto) 0.3 0.0-1.0 10^3/uL Eosinophils # (Auto) 0.0 0.0-0.3 10^3/uL Basophils # (Auto) 0.0 0.0-0.1 10^3/uL Immature Granulocyte # (Auto) 0.0 0.0-0.1 10^3/uL Sodium Level 130 L 135-145 MMOL/L Potassium Level 3.8 3.6-5.0 MMOL/L Chloride Level 95 L 98-107 MMOL/L Carbon Dioxide Level 25 21-32 MMOL/L Anion Gap 10 5-14 MMOL/L Blood Urea Nitrogen 17 7-18 MG/DL Creatinine 1.34 H 0.60-1.30 MG/DL Estimat Glomerular Filtration Rate 71 BUN/Creatinine Ratio 13 Glucose Level 101 70-105 MG/DL Calcium Level 8.0 L 8.5-10.1 MG/DL Corrected Calcium 9.0 8.5-10.1 MG/DL Total Bilirubin 1.0 0.1-1.0 MG/DL Aspartate Amino Transf (AST/SGOT) 137 H 5-34 U/L Alanine Aminotransferase (ALT/SGPT) 85 H 0-55 U/L Alkaline Phosphatase 154 H 40-136 U/L Total Protein 6.8 6.4-8.2 GM/DL Albumin 2.8 L 3.2-4.5 GM/DL Diagnosis/Problems Diagnosis/Problems (1) Acute on chronic HFrEF (heart failure with reduced ejection fraction) Assessment & Plan: Although his chest x-ray did not show overt signs of pulmonary congestion, he is short of breath and also has an elevated BNP level. I suspect he may have some component of decompensated heart failure. This is superimposed on Covid infection. I have resumed his spironolactone which he was supposed to be taking at home. I changed his carvedilol over to low-dose metoprolol succinate which may be less likely to cause hypotension. I have also restarted losartan but at a lower dose. I will obtain follow-up chest x-ray in the morning. We may be able to transition him to oral diuretic tomorrow. (2) Cardiomyopathy Assessment & Plan: He has severe nonischemic dilated cardiomyopathy. His most recent echocardiogram in May, showed an ejection fraction of 15-20%. He had a previous cardiac catheterization that did not show any signs of coronary artery disease. We will proceed as above. (3) Elevated troponin Status: Acute Assessment & Plan: This is probably a type II non-ST elevation myocardial infarction due to supply/demand mismatch from his acute respiratory failure which may be due to Covid infection as well as decompensated heart failure. I will resume his guideline directed medical therapy for the heart failure as outlined above. (4) Mitral regurgitation Assessment & Plan: He had moderate mitral and tricuspid regurgitation on his echocardiogram from earlier this year. This is most likely functional mitral regurgitation. This will need to be followed longitudinally. I do not see any indication for follow-up echocardiogram during this hospitalization. (5) Primary hypertension Assessment & Plan: I have restarted his treatment for the cardiomyopathy and heart failure. We will need to watch his blood pressure closely so as to avoid hypotension. (6) Mixed hyperlipidemia Assessment & Plan: Continue atorvastatin. (7) Pulmonary hypertension Assessment & Plan: Most likely related to the chronic heart failure. (8) Cardiac defibrillator in situ Assessment & Plan: He did not report any device discharges in the recent past. (9) Acute kidney injury superimposed on chronic kidney disease Assessment & Plan: We will need to watch his renal function closely with the intravenous furosemide. AMARJIT CAMPOS JR, MD Mar 09, 2021 15:17
[2021-03-09 16:44] VITALS: BP 123/78
[2021-03-09] MEDS: ONDANSETRON 4 MG/2 ML (SDV) Z0FRAN IV PRN (17:05)
[2021-03-09] MEDS: MELATONIN 3 MG TABLET PO PRN (20:58)
[2021-03-09] MEDS: guaiFENesin/CODEINE (ROBITUSSIN AC) 10ML UDC PO PRN (20:59)
[2021-03-10 00:39] VITALS: BP 123/80
[2021-03-10] MEDS: RT-ALBUTEROL HFA 8.5 GM INHALER IH SCH (02:37)
[2021-03-10] MEDS: CATHETER FLUSH 10 ML SYR IV SCH ×3 (06:05→19:51)
[2021-03-10 06:08] LABS: POTASSIUM 3.5 MMOL/L (3.6-5.0)
[2021-03-10 06:09] LABS: CALCIUM 7.6 MG/DL (8.5-10.1)
[2021-03-10 06:13] LABS: CREATININE SERUM 1.02 MG/DL (0.60-1.30)
--- NOTE | 2021-03-10 07:08 | Diagnostic Imaging Report ---
INDICATION: Respiratory distress. Frontal chest obtained at 0344 a.m. and compared with 03/07/2021 There is prominent cardiomegaly again noted. Pacemaker is unchanged. There is no focal infiltrate or pneumothorax or pleural fluid. IMPRESSION: Prominent cardiomegaly noted with no acute change compared to the prior study. Dictated by: Dictated on workstation # [id number]
--- NOTE | 2021-03-10 07:20 | Progress Note - Hospitalist ---
Subjective HPI/CC On Admission Date Seen by Provider: Mar 10, 2021 Time Seen by Provider: 11:45 Chief complaint: Chest pain History present illness: This is a 41-year-old -[place] male who presented to the [facility] ER with chest pressure. Elevated troponin was noted. Patient was admitted for observation and found to have COVID-19. He reports a cough and diarrhea. Robitussin with codeine and Imodium were ordered. Methamphetamine and multiple other illicit drugs were in his drug screen also. Cardiology was consulted. Subjective/Events-last exam Patient doing better DC telemetry per Dr. Rajan No pain is reported Cough is still present No supplemental oxygen needed Review of Systems General: Fatigue, Malaise Pulmonary: Dyspnea, Cough Objective Exam Vital Signs Vital Signs Date Time Temp Pulse Resp B/P (MAP) Pulse Ox O2 Delivery O2 Flow Rate FiO2 03/10/21 23:46 38.1 84 20 109/69 (82) 94 Room Air 03/10/21 07:30 21 Capillary Refill : General Appearance: No Apparent Distress, WD/WN, Chronically ill Respiratory: Lungs Clear, Normal Breath Sounds Cardiovascular: Regular Rate, Rhythm Neurologic/Psychiatric: Alert, Oriented x3, No Motor/Sensory Deficits, Normal Mood/Affect Results/Procedures Lab Laboratory Tests 03/10/21 05:30 Patient resulted labs reviewed. Assessment/Plan Assessment and Plan Assess & Plan/Chief Complaint Assessment: Chest pain Elevated troponin Cardiomyopathy history of defibrillator Meth use on drug screen COVID-19 Smoker Chronic kidney disease Hypertension Plan: Cardiology consult Supportive care 03/09/2021: Continue care supportive type 03/10/2021: Supportive care Appreciate cardiology Diagnosis/Problems Diagnosis/Problems (1) Chest pain (2) Elevated troponin Status: Acute (3) COVID-19 (4) Cough (5) Diarrhea (6) Chronic kidney disease (7) Non-ischemic cardiomyopathy Status: Chronic (8) Dyspnea SRI SANTACRUZ DO Mar 10, 2021 07:20
[2021-03-10 07:48] VITALS: BP 120/78
[2021-03-10] MEDS: SPIRONOLACTONE 25 MG (ALDACTONE) TAB PO SCH (09:04)
[2021-03-10] MEDS: SENNA W/DOCUSATE (SENOKOT S) TABLET PO SCH ×2 (09:04→19:51)
[2021-03-10] MEDS: LOSARTAN 25 MG (COZAAR) TAB PO SCH (09:04)
[2021-03-10] MEDS: FUROSEMIDE 40 MG/4 ML INJ (LASIX) IVP SCH (09:05)
[2021-03-10] MEDS: KCL 10 MEQ TAB (MICRO K) PO SCH ×2 (09:05→19:51)
--- NOTE | 2021-03-10 11:30 | Cardiology Progress Note ---
Progress Note-Cardiology Events since last exam Date Seen by Provider: Mar 10, 2021 Time Seen by Provider: 11:29 Events since last exam I am following him due to cardiomyopathy with chronic heart failure with reduced ejection fraction. He is in the hospital now with Covid infection. I did speak with the patient from the doorway. He is not aware of any issues with his defibrillator. I did review his most recent defibrillator check from Jul, 2020 and there were not any significant issues noted with the device. I also spoke with his nurse of today. His respiratory status has been about the same. He has not been complaining of chest discomfort. Certain portions of this document may have been dictated utilizing voice recognition technology. Inherent to this technology, typographical and grammatical errors may exist. As much as I am diligent to identify and correct these mistakes, some errors may remain in the document. Vitals Last set of Vitals Signs Vital Signs 03/10/21 03/10/21 03/10/21 07:30 07:48 08:00 Temp 37.8 Pulse 83 Resp 20 B/P (MAP) 120/78 (92) Pulse Ox 92 O2 Delivery Room Air FiO2 21 Labs Labs Laboratory Tests 03/10/21 05:30 Exam Vital Signs Vital Signs Date Time Temp Pulse Resp B/P (MAP) Pulse Ox O2 Delivery O2 Flow Rate FiO2 03/10/21 08:00 Room Air 03/10/21 07:48 37.8 83 20 120/78 (92) 92 03/10/21 07:30 21 Physical Exam I did not examine the patient due to his Covid status. Labs Laboratory Tests Test 03/10/21 05:30 Range/Units Sodium Level 130 L 135-145 MMOL/L Potassium Level 3.5 L 3.6-5.0 MMOL/L Chloride Level 95 L 98-107 MMOL/L Carbon Dioxide Level 25 21-32 MMOL/L Anion Gap 10 5-14 MMOL/L Blood Urea Nitrogen 11 7-18 MG/DL Creatinine 1.02 0.60-1.30 MG/DL Estimat Glomerular Filtration Rate 97 BUN/Creatinine Ratio 11 Glucose Level 85 70-105 MG/DL Calcium Level 7.6 L 8.5-10.1 MG/DL Diagnosis/Problems Diagnosis/Problems (1) Acute on chronic HFrEF (heart failure with reduced ejection fraction) Assessment & Plan: Although his chest x-ray did not show overt signs of pulmonary congestion, he is short of breath and also has an elevated BNP level. I suspect he may have some component of decompensated heart failure. This is superimposed on Covid infection. I have resumed his spironolactone which he was supposed to be taking at home. I changed his carvedilol over to low-dose metoprolol succinate which may be less likely to cause hypotension. I have also restarted losartan but at a lower dose. Today's chest x-ray does not show overt pulmonary edema. I will change his furosemide back to oral. (2) Cardiomyopathy Assessment & Plan: He has severe nonischemic dilated cardiomyopathy. His most recent echocardiogram in May, showed an ejection fraction of 15-20%. He had a previous cardiac catheterization that did not show any signs of coronary artery disease. We will proceed as above. (3) Elevated troponin Status: Acute Assessment & Plan: This is probably a type II non-ST elevation myocardial infarction due to supply/demand mismatch from his acute respiratory failure which may be due to Covid infection as well as decompensated heart failure. I will resume his guideline directed medical therapy for the heart failure as outlined above. (4) Mitral regurgitation Assessment & Plan: He had moderate mitral and tricuspid regurgitation on his echocardiogram from earlier this year. This is most likely functional mitral regurgitation. This will need to be followed longitudinally. I do not see any indication for follow-up echocardiogram during this hospitalization. (5) Primary hypertension Assessment & Plan: I have restarted his treatment for the cardiomyopathy and heart failure. We will need to watch his blood pressure closely so as to avoid hypotension. (6) Mixed hyperlipidemia Assessment & Plan: Continue atorvastatin. (7) Pulmonary hypertension Assessment & Plan: Most likely related to the chronic heart failure. (8) Cardiac defibrillator in situ Assessment & Plan: He did not report any device discharges in the recent past. His most device check from July showed normal device function from my interpretation. (9) Acute kidney injury superimposed on chronic kidney disease Assessment & Plan: We will need to watch his renal function closely with the intravenous furosemide. AMARJIT CAMPOS JR, MD Mar 10, 2021 11:30
[2021-03-10] MEDS: ENOXAPARIN 40 MG/0.4 ML (LOVENOX) SYR SC SCH (12:30)
[2021-03-10 16:00] VITALS: BP 144/73
[2021-03-10] MEDS: ONDANSETRON 4 MG/2 ML (SDV) Z0FRAN IV PRN (19:51)
[2021-03-10] MEDS: guaiFENesin/CODEINE (ROBITUSSIN AC) 10ML UDC PO PRN (19:51)
[2021-03-10] MEDS: MELATONIN 3 MG TABLET PO PRN (19:51)
[2021-03-10 23:46] VITALS: BP 109/69
[2021-03-11] MEDS: CATHETER FLUSH 10 ML SYR IV SCH ×3 (05:55→21:52)
[2021-03-11 06:50] LABS: BASOPHILS % (AUTO) 0 % (0-10); EOSINOPHILS % (AUTO) 0 % (0-10); HEMATOCRIT 38 % (40-54); HEMOGLOBIN 12.3 g/dL (13.3-17.7); LYMPHOCYTES # (AUTO) 0.9 10^3/uL (1.0-4.0); LYMPHOCYTES % (AUTO) 24 % (12-44); MEAN CORPUSCULAR HEMOGLOBIN 28 pg (25-34); MEAN CORPUSCULAR HGB CONC 33 g/dL (32-36); MEAN CORPUSCULAR VOLUME 87 fL (80-99); MEAN PLATELET VOLUME 10.6 fL (9.0-12.2); MONOCYTES # (AUTO) 0.3 10^3/uL (0.0-1.0); MONOCYTES % (AUTO) 8 % (0-12); NEUTROPHILS # (AUTO) 2.4 10^3/uL (1.8-7.8); NEUTROPHILS % (AUTO) 67 % (42-75); PLATELET COUNT 183 10^3/uL (130-400); WHITE BLOOD COUNT 3.6 10^3/uL (4.3-11.0)
[2021-03-11 07:27] LABS: ALBUMIN 2.5 GM/DL (3.2-4.5); BILIRUBIN,TOTAL 0.8 MG/DL (0.1-1.0); CALCIUM 7.8 MG/DL (8.5-10.1); CREATININE SERUM 1.07 MG/DL (0.60-1.30)
[2021-03-11 07:58] VITALS: BP 117/78
[2021-03-11] MEDS: FUROSEMIDE 40 MG (LASIX) TAB PO SCH (09:00)
[2021-03-11] MEDS: SPIRONOLACTONE 25 MG (ALDACTONE) TAB PO SCH (09:00)
[2021-03-11] MEDS: LOSARTAN 25 MG (COZAAR) TAB PO SCH (09:00)
[2021-03-11] MEDS: SENNA W/DOCUSATE (SENOKOT S) TABLET PO SCH ×2 (09:00→21:49)
[2021-03-11] MEDS: KCL 10 MEQ TAB (MICRO K) PO SCH ×2 (09:01→21:51)
[2021-03-11] MEDS: ONDANSETRON 4 MG/2 ML (SDV) Z0FRAN IV PRN (09:45)
[2021-03-11] MEDS: ENOXAPARIN 40 MG/0.4 ML (LOVENOX) SYR SC SCH (12:38)
[2021-03-11] MEDS ORDERED: ATOR20TA66 PO (14:29)
[2021-03-11] MEDS ORDERED: MTP25TSR PO (14:29)
[2021-03-11] MEDS ORDERED: SPIR25TA5 PO (14:29)
[2021-03-11] MEDS ORDERED: LOSA25TA41 PO (14:29)
[2021-03-11] MEDS ORDERED: meTOprolol TARTRATE 25 MG (LOPRESSOR) TABLET PO NR (14:45)
[2021-03-11 15:00] VITALS: BP 119/87
[2021-03-11 15:01] VITALS: BP 144/67
[2021-03-11 16:04] VITALS: BP 121/85
--- NOTE | 2021-03-11 16:53 | Cardiology Progress Note ---
Progress Note-Cardiology Events since last exam Date Seen by Provider: Mar 11, 2021 Time Seen by Provider: 16:48 Events since last exam I am following him due to cardiomyopathy and chronic heart failure with reduced ejection fraction while he is in the hospital with Covid. Earlier today he told the nurse he was having some chest discomfort. She did an electrocardiogram that showed wide-complex tachycardia. I asked her to give him additional dose of short acting oral metoprolol. I did not see the patient due to his Covid status. Certain portions of this document may have been dictated utilizing voice r ecognition technology. Inherent to this technology, typographical and grammatical errors may exist. As much as I am diligent to identify and correct these mistakes, some errors may remain in the document. Vitals Last set of Vitals Signs Vital Signs 03/10/21 03/11/21 03/11/21 07:30 10:45 16:04 Temp 36.5 Pulse 153 Resp 19 B/P (MAP) 121/85 (97) Pulse Ox 95 O2 Delivery Room Air O2 Flow Rate 0.00 FiO2 21 Labs Labs Laboratory Tests 03/11/21 06:31 Exam Vital Signs Vital Signs Date Time Temp Pulse Resp B/P (MAP) Pulse Ox O2 Delivery O2 Flow Rate FiO2 03/11/21 16:04 36.5 153 19 121/85 (97) 95 Room Air 03/11/21 10:45 0.00 03/10/21 07:30 21 Physical Exam I did not examine the patient due to his Covid status. Labs Laboratory Tests Test 03/11/21 06:31 03/11/21 15:07 Range/Units White Blood Count 3.6 L 4.3-11.0 10^3/uL Red Blood Count 4.37 4.30-5.52 10^6/uL Hemoglobin 12.3 L 13.3-17.7 g/dL Hematocrit 38 L 40-54 % Mean Corpuscular Volume 87 80-99 fL Mean Corpuscular Hemoglobin 28 25-34 pg Mean Corpuscular Hemoglobin Concent 33 32-36 g/dL Red Cell Distribution Width 14.6 H 10.0-14.5 % Platelet Count 183 130-400 10^3/uL Mean Platelet Volume 10.6 9.0-12.2 fL Immature Granulocyte % (Auto) 0 % Neutrophils (%) (Auto) 67 42-75 % Lymphocytes (%) (Auto) 24 12-44 % Monocytes (%) (Auto) 8 0-12 % Eosinophils (%) (Auto) 0 0-10 % Basophils (%) (Auto) 0 0-10 % Neutrophils # (Auto) 2.4 1.8-7.8 10^3/uL Lymphocytes # (Auto) 0.9 L 1.0-4.0 10^3/uL Monocytes # (Auto) 0.3 0.0-1.0 10^3/uL Eosinophils # (Auto) 0.0 0.0-0.3 10^3/uL Basophils # (Auto) 0.0 0.0-0.1 10^3/uL Immature Granulocyte # (Auto) 0.0 0.0-0.1 10^3/uL Sodium Level 131 L 135-145 MMOL/L Potassium Level 4.0 3.6-5.0 MMOL/L Chloride Level 97 L 98-107 MMOL/L Carbon Dioxide Level 26 21-32 MMOL/L Anion Gap 8 5-14 MMOL/L Blood Urea Nitrogen 8 7-18 MG/DL Creatinine 1.07 0.60-1.30 MG/DL Estimat Glomerular Filtration Rate 91 BUN/Creatinine Ratio 7 Glucose Level 92 70-105 MG/DL Calcium Level 7.8 L 8.5-10.1 MG/DL Corrected Calcium 9.0 8.5-10.1 MG/DL Total Bilirubin 0.8 0.1-1.0 MG/DL Aspartate Amino Transf (AST/SGOT) 85 H 5-34 U/L Alanine Aminotransferase (ALT/SGPT) 62 H 0-55 U/L Alkaline Phosphatase 129 40-136 U/L Total Protein 6.0 L 6.4-8.2 GM/DL Albumin 2.5 L 3.2-4.5 GM/DL Troponin I 0.126 H <0.028 NG/ML Radiology ELECTROCARDIOGRAM (03/11/2021): Wide-complex tachycardia, possibly ventricular tachycardia. Diagnosis/Problems Diagnosis/Problems (1) Ventricular tachycardia Status: Acute Assessment & Plan: It appears as though he may be having ventricular tac hycardia. I will start him on amiodarone for now. We may need to consider an electrophysiology consultation if not already done in the past. Given his young age, I would be hesitant to keep him on amiodarone chronically due to risk of toxic side effects. He may need another agent such as mexiletine or sotalol but I would rather have him see an coal shoveler to make this determination. If we cannot get the wide-complex tachycardia under control with amiodarone, he may need transfer to a facility with an coal shoveler (2) Acute on chronic HFrEF (heart failure with reduced ejection fraction) Assessment & Plan: Although his chest x-ray did not show overt signs of pulmonary congestion, he is short of breath and also has an elevated BNP level. I suspect he may have some component of decompensated heart failure. This is superimposed on Covid infection. I have resumed his spironolactone which he was supposed to be taking at home. I changed his carvedilol over to low-dose metoprolol succinate which may be less likely to cause hypotension. I have also restarted losartan but at a lower dose. Today's chest x-ray does not show overt pulmonary edema. I will change his furosemide back to oral. (3) Cardiomyopathy Assessment & Plan: He has severe nonischemic dilated cardiomyopathy. His most recent echocardiogram in May, showed an ejection fraction of 15-20%. He had a previous cardiac catheterization that did not show any signs of coronary artery disease. We will proceed as above. (4) Elevated troponin Status: Acute Assessment & Plan: This is probably a type II non-ST elevation myocardial infarction due to supply/demand mismatch from his acute respiratory failure which may be due to Covid infection as well as decompensated heart failure. I will resume his guideline directed medical therapy for the heart failure as outlined above. (5) Mitral regurgitation Assessment & Plan: He had moderate mitral and tricuspid regurgitation on his echocardiogram from earlier this year. This is most likely functional mitral regurgitation. This will need to be followed longitudinally. I do not see any indication for follow-up echocardiogram during this hospitalization. (6) Primary hypertension Assessment & Plan: I have restarted his treatment for the cardiomyopathy and heart failure. We will need to watch his blood pressure closely so as to avoid hypotension. (7) Mixed hyperlipidemia Assessment & Plan: Continue atorvastatin. (8) Pulmonary hypertension Assessment & Plan: Most likely related to the chronic heart failure. (9) Cardiac defibrillator in situ Assessment & Plan: He did not report any device discharges in the recent past. His most device check from July showed normal device function from my interpretation. (10) Acute kidney injury superimposed on chronic kidney disease Assessment & Plan: We will need to watch his renal function closely with the intravenous furosemide. AMARJIT CAMPOS JR, MD Mar 11, 2021 16:53
[2021-03-11] MEDS: AMIODARONE 200 MG (CORDARONE) TAB PO SCH (17:18)
--- NOTE | 2021-03-11 19:35 | Progress Note ---
Subjective Subjective/Events-last exam Pt seen at 1510. Having some chest discomfort, dizziness and racing heart, which woke him from sleep, when he got up then to go to the bathroom it felt worse. He states he has had shortness of breath for about 2 weeks. Objective Exam Last Set of Vital Signs Vital Signs Date Time Temp Pulse Resp B/P (MAP) Pulse Ox O2 Delivery O2 Flow Rate FiO2 03/11/21 16:04 36.5 153 19 121/85 (97) 95 Room Air 03/11/21 10:45 0.00 03/10/21 07:30 21 Capillary Refill : I&O Intake and Output 03/11/21 00:00 Intake Total 2640 ml Output Total 1400 ml Balance 1240 ml Intake Oral 2640 ml Output Urine Total 1400 ml # Voids 16 # Bowel Movements 2 General: Alert, Mild Distress Lungs: Clear to Auscultation, Normal Air Movement Heart: Other (tachycardic, S4 audible) Abdomen: Normal Bowel Sounds, Soft Extremities: No Edema Neuro: Normal Speech Psych/Mental Status: Mood NL Results/Procedures Lab Laboratory Tests 03/11/21 06:31: White Blood Count 3.6L, Red Blood Count 4.37, Hemoglobin 12.3L, Hematocrit 38L, Mean Corpuscular Volume 87, Mean Corpuscular Hemoglobin 28, Mean Corpuscular Hemoglobin Concent 33, Red Cell Distribution Width 14.6H, Platelet Count 183, Mean Platelet Volume 10.6, Immature Granulocyte % (Auto) 0, Neutrophils (%) (Auto) 67, Lymphocytes (%) (Auto) 24, Monocytes (%) (Auto) 8, Eosinophils (%) (Auto) 0, Basophils (%) (Auto) 0, Neutrophils # (Auto) 2.4, Lymphocytes # (Auto) 0.9L, Monocytes # (Auto) 0.3, Eosinophils # (Auto) 0.0, Basophils # (Auto) 0.0, Immature Granulocyte # (Auto) 0.0, Sodium Level 131L, Potassium Level 4.0, Chloride Level 97L, Carbon Dioxide Level 26, Anion Gap 8, Blood Urea Nitrogen 8, Creatinine 1.07, Estimat Glomerular Filtration Rate 91, BUN/Creatinine Ratio 7, Glucose Level 92, Calcium Level 7.8L, Corrected Calcium 9.0, Total Bilirubin 0.8, Aspartate Amino Transf (AST/SGOT) 85H, Alanine Aminotransferase (ALT/SGPT) 62H, Alkaline Phosphatase 129, Total Protein 6.0L, Albumin 2.5L 03/11/21 15:07: Magnesium Level 1.7, Troponin I 0.126H Assessment/Plan Assessment/Plan (1) COVID-19 Status: Acute Assessment & Plan: Unclear how much COVID is contributing to current symptoms, no significant hypoxia, CXR without COVID findings. He does have worse than usual shortness of air, but this may be CHF related. (2) Chest pain Status: Acute Assessment & Plan: EKG without ST elevation. Troponin mildly elevated, appreciate Cardiology recommendations, thought to be type II PR. New tachycardia 1/3 pm, appreciate Cardiology recommendations. (3) Primary hypertension Status: Chronic (4) Mixed hyperlipidemia Status: Chronic (5) Non-ischemic cardiomyopathy Status: Chronic (6) Elevated troponin Status: Acute (7) Acute on chronic HFrEF (heart failure with reduced ejection fraction) Status: Acute Assessment & Plan: Received IV lasix on admit, appreciate Cardiology recommendations. Last EF 15-20%, has defibrillator. Not hypoxic. Changed back to oral lasix and spironolactone added that was intended to be home med but was not taking. (8) Elevated liver enzymes Status: Chronic Assessment & Plan: Have been elevated in past, Hep panel neg 11/2019. Congestive versus fatty liver, may need further work-up outpatient. (9) DVT prophylaxis Status: Acute Assessment & Plan: Enoxaparin ALEJA TORRES MD Mar 11, 2021 19:35
[2021-03-11] MEDS: MELATONIN 3 MG TABLET PO PRN (21:55)
[2021-03-11 23:43] VITALS: BP 116/70
[2021-03-12] MEDS: AMIODARONE 200 MG (CORDARONE) TAB PO SCH ×2 (05:22→17:25)
[2021-03-12] MEDS: CATHETER FLUSH 10 ML SYR IV SCH ×3 (05:22→20:44)
[2021-03-12] MEDS: ONDANSETRON 4 MG/2 ML (SDV) Z0FRAN IV PRN (05:25)
[2021-03-12 06:19] LABS: HEMATOCRIT 42 % (40-54); HEMOGLOBIN 13.2 g/dL (13.3-17.7); MEAN CORPUSCULAR HEMOGLOBIN 28 pg (25-34); MEAN CORPUSCULAR HGB CONC 31 g/dL (32-36); MEAN CORPUSCULAR VOLUME 91 fL (80-99); MEAN PLATELET VOLUME 10.6 fL (9.0-12.2); PLATELET COUNT 177 10^3/uL (130-400); WHITE BLOOD COUNT 2.7 10^3/uL (4.3-11.0)
[2021-03-12 06:30] LABS: ALBUMIN 2.8 GM/DL (3.2-4.5)
[2021-03-12 06:31] LABS: POTASSIUM 4.7 MMOL/L (3.6-5.0)
[2021-03-12 06:33] LABS: TOTAL PROTEIN 7.1 GM/DL (6.4-8.2)
[2021-03-12 06:35] LABS: BILIRUBIN,TOTAL 0.7 MG/DL (0.1-1.0)
[2021-03-12 06:37] LABS: CREATININE SERUM 1.22 MG/DL (0.60-1.30)
[2021-03-12 07:54] VITALS: BP 113/78
[2021-03-12] MEDS: FUROSEMIDE 40 MG (LASIX) TAB PO SCH (08:39)
[2021-03-12] MEDS: KCL 10 MEQ TAB (MICRO K) PO SCH ×2 (08:39→20:44)
[2021-03-12] MEDS: SENNA W/DOCUSATE (SENOKOT S) TABLET PO SCH ×2 (08:39→19:20)
[2021-03-12] MEDS: SPIRONOLACTONE 25 MG (ALDACTONE) TAB PO SCH (08:39)
[2021-03-12] MEDS: LOSARTAN 25 MG (COZAAR) TAB PO SCH (08:39)
[2021-03-12] MEDS: ENOXAPARIN 40 MG/0.4 ML (LOVENOX) SYR SC SCH (13:02)
[2021-03-12 15:41] VITALS: BP 108/67
--- NOTE | 2021-03-12 17:50 | Progress Note ---
Subjective Subjective/Events-last exam Afebrile, heart rate improved after starting amiodarone. Still feels short of breath but not requiring supplemental oxygen. Objective Exam Last Set of Vital Signs Vital Signs Date Time Temp Pulse Resp B/P (MAP) Pulse Ox O2 Delivery O2 Flow Rate FiO2 03/12/21 15:41 36.8 72 18 108/67 (81) 100 Room Air 03/11/21 10:45 0.00 03/10/21 07:30 21 Capillary Refill : I&O Intake and Output 03/12/21 00:00 Intake Total 3240 ml Balance 3240 ml Intake Oral 3240 ml # Voids 13 # Bowel Movements 3 General: Alert, No Acute Distress Heart: Regular Rate Neuro: Normal Speech Psych/Mental Status: Mood NL Results/Procedures Lab Laboratory Tests 03/12/21 06:11: White Blood Count 2.7L, Red Blood Count 4.64, Hemoglobin 13.2L, Hematocrit 42, Mean Corpuscular Volume 91, Mean Corpuscular Hemoglobin 28, Mean Corpuscular Hemoglobin Concent 31L, Red Cell Distribution Width 14.9H, Platelet Count 177, Mean Platelet Volume 10.6, Sodium Level 130L, Potassium Level 4.7, Chloride Level 96L, Carbon Dioxide Level 29, Anion Gap 5, Blood Urea Nitrogen 6L, Creatinine 1.22, Estimat Glomerular Filtration Rate 79, BUN/Creatinine Ratio 5, Glucose Level 122H, Calcium Level 8.0L, Corrected Calcium 9.0, Total Bilirubin 0.7, Aspartate Amino Transf (AST/SGOT) 71H, Alanine Aminotransferase (ALT/SGPT) 57H, Alkaline Phosphatase 144H, Total Protein 7.1, Albumin 2.8L Assessment/Plan Assessment/Plan (1) COVID-19 Status: Acute Assessment & Plan: Unclear how much COVID is contributing to current symptoms, no significant hypoxia, CXR without COVID findings. He does have worse than usual shortness of air, but this may be CHF related. (2) Chest pain Status: Acute Assessment & Plan: EKG without ST elevation. Troponin mildly elevated, appreciate Cardiology recommendations, thought to be type II [place]. New tachycardia 1/3 pm, appreciate Cardiology recommendations. 03/12 started on amiodarone yesterday with improvement. Recurrent chest pain this afternoon, appreciate Cardiology recommendations. (3) Primary hypertension Status: Chronic (4) Mixed hyperlipidemia Status: Chronic (5) Non-ischemic cardiomyopathy Status: Chronic (6) Elevated troponin Status: Acute (7) Acute on chronic HFrEF (heart failure with reduced ejection fraction) Status: Acute Assessment & Plan: Received IV lasix on admit, appreciate Cardiology recommendations. Last EF 15-20%, has defibrillator. Not hypoxic. Changed back to oral lasix and spironolactone added that was intended to be home med but was not taking. (8) Elevated liver enzymes Status: Chronic Assessment & Plan: Have been elevated in past, Hep panel neg 11/2019. Congestive versus fatty liver, may need further work-up outpatient. (9) DVT prophylaxis Status: Acute Assessment & Plan: Enoxaparin ALEJA TORRES MD Mar 12, 2021 17:50
[2021-03-12] MEDS: MELATONIN 3 MG TABLET PO PRN (20:45)
[2021-03-12] MEDS: guaiFENesin/CODEINE (ROBITUSSIN AC) 10ML UDC PO PRN (22:16)
[2021-03-12 23:15] VITALS: BP 110/74
[2021-03-13] MEDS: AMIODARONE 200 MG (CORDARONE) TAB PO SCH ×2 (05:44→17:08)
[2021-03-13] MEDS: CATHETER FLUSH 10 ML SYR IV SCH ×2 (05:44→14:00)
[2021-03-13 07:08] LABS: HEMATOCRIT 42 % (40-54); HEMOGLOBIN 13.1 g/dL (13.3-17.7); MEAN CORPUSCULAR HEMOGLOBIN 28 pg (25-34); MEAN CORPUSCULAR HGB CONC 32 g/dL (32-36); MEAN CORPUSCULAR VOLUME 89 fL (80-99); MEAN PLATELET VOLUME 10.9 fL (9.0-12.2); PLATELET COUNT 191 10^3/uL (130-400)
[2021-03-13] MEDS ORDERED: AMIO200T65 PO (07:23)
[2021-03-13 07:35] LABS: ALBUMIN 2.8 GM/DL (3.2-4.5); BILIRUBIN,TOTAL 0.7 MG/DL (0.1-1.0); CALCIUM 8.2 MG/DL (8.5-10.1); CREATININE SERUM 1.16 MG/DL (0.60-1.30); POTASSIUM 4.5 MMOL/L (3.6-5.0)
[2021-03-13 07:40] VITALS: BP 110/70
[2021-03-13 07:42] VITALS: BP 110/70
[2021-03-13] MEDS: SENNA W/DOCUSATE (SENOKOT S) TABLET PO SCH (08:08)
[2021-03-13] MEDS: SPIRONOLACTONE 25 MG (ALDACTONE) TAB PO SCH (08:14)
[2021-03-13] MEDS: KCL 10 MEQ TAB (MICRO K) PO SCH (08:14)
[2021-03-13] MEDS: FUROSEMIDE 40 MG (LASIX) TAB PO SCH (08:14)
[2021-03-13] MEDS: LOSARTAN 25 MG (COZAAR) TAB PO SCH (08:14)
--- NOTE | 2021-03-13 09:20 | Cardiology Progress Note ---
Subjective Date Seen by Provider: Mar 13, 2021 Time Seen by Provider: 09:19 Subjective/Events-last exam Patient is sitting up in chair, denies any further episode of chest pain. Objective-Cardiology Exam Last Set of Vital Signs Vital Signs 03/11/21 03/13/21 03/13/21 03/13/21 03/13/21 10:45 07:40 07:42 08:00 13:00 Temp 36.8 Pulse 64 Resp 18 B/P (MAP) 110/70 (83) Pulse Ox 96 O2 Delivery Room Air O2 Flow Rate 0.00 FiO2 21 I&O Intake and Output 03/13/21 00:00 Intake Total 3412 ml Output Total 225 ml Balance 3187 ml Intake Oral 3412 ml Output Urine Total 225 ml # Voids 13 # Bowel Movements 8 General: Alert, No Acute Distress Lungs: Clear to Auscultation, Normal Air Movement Heart: Regular Rate Abdomen: Normal Bowel Sounds, Soft Extremities: No Edema Neuro: Normal Speech Psych/Mental Status: Mood NL Results Lab Laboratory Tests 03/13/21 06:37 A/P-Cardiology Admission Diagnosis COVID-19 Chest pian CHF VT Assessment/Plan Covid-19 illness, improving, management per medical services Chest pain, nonspecific etiology, reporting improvement. Congestive heart failure, chronic compensated left ventricular systolic dysfunction nonischemic cardiomyopathy, severe. g.s/p single chamber ICD im [place], [employer], on 06/04/20. Echocardiogram done on July 15, 2020 showing dilated left ventricle with EF 15 to 20%, left atrium 4.4 cm, right heart chambers dilatation, moderate MR, moderate TR, PA 15 mmHg. Continue to monitor Continue to maximize medical therapy. Status post ventricular tachycardia/wide-complex tachycardia on this admission. Amiodarone restarted. Had another episode on July 15, 2020, continue on Amiodarone. Hypertension, controlled, continue to monitor. Cardiac catheterization done in November 2019 showing normal coronaries with no significant obstructive disease. Continue to monitor History of illicit drug use, has been avoiding drugs. History of noncompliance with medication, reporting better compliance at this time OK for discharge from cardiology standpoint, f/u in our office in 2 weeks. Supervisory-Addendum Brief Supervisory Addendum Participated in pt care: history, MDM, physical Personally performed: exam, history, MDM Care discussed with: LAINEY Results interpretation: Verified all documentation Notes: Patient was evaluated with Juan F, she performed the physical examination I discussed the management plan in length. Agree with the current plan with discharge and follow-up home No further episodes of chest pain No further arrhythmia was noted Tolerating amiodarone Arrange for follow-up as an outpatient JUAN F BRADLEY Mar 13, 2021 09:20 FLORA MAGDALENO MD Mar 13, 2021 13:45
--- NOTE | 2021-03-13 11:08 | Discharge Summary ---
Discharge Summary Hospital Course Problems/Diagnosis: (1) COVID-19 Status: Acute Assessment & Plan: Unclear how much COVID is contributing to current symptoms, also uncertain timing of onset of illness, no significant hypoxia, CXR without COVID findings. He does have worse than usual shortness of air, but this may be CHF related. (2) Chest pain Status: Acute Assessment & Plan: EKG without ST elevation. Troponin mildly elevated, appreciate Cardiology recommendations, thought to be type II [place]. New tachycardia 1/3 pm, appreciate Cardiology recommendations. 03/12 started on amiodarone yesterday with improvement. Recurrent chest pain this afternoon, appreciate Cardiology recommendations. 03/13 intermittent chest pain without clear cardiac cause, possibly COVID and underlying cardiac disease, okay for d/c from Cardiology standpoint, discharged on amiodarone. (3) Primary hypertension Status: Chronic (4) Mixed hyperlipidemia Status: Chronic (5) Non-ischemic cardiomyopathy Status: Chronic (6) Elevated troponin Status: Acute (7) Acute on chronic HFrEF (heart failure with reduced ejection fraction) Status: Acute Assessment & Plan: Received IV lasix on admit, appreciate Cardiology recommendations. Last EF 15-20%, has defibrillator. Not hypoxic. Changed back to oral lasix and spironolactone added that was intended to be home med but was not taking. (8) Elevated liver enzymes Status: Chronic Assessment & Plan: Have been elevated in past, Hep panel neg 11/2019. Congestive versus fatty liver, may need further work-up outpatient. Hospital Course Date of Admission: Mar 11, 2021 at 16:37 Admission Diagnosis : Family Physician/Provider: Ricci Bernard MD Date of Discharge: 03/13/21 Discharge Diagnosis: See problem list Hospital Course: See problem list Labs and Pending Lab Test: Laboratory Tests 03/13/21 06:37: White Blood Count 3.0L, Red Blood Count 4.64, Hemoglobin 13.1L, Hematocrit 42, Mean Corpuscular Volume 89, Mean Corpuscular Hemoglobin 28, Mean Corpuscular H emoglobin Concent 32, Red Cell Distribution Width 14.9H, Platelet Count 191, Mean Platelet Volume 10.9, Sodium Level 132L, Potassium Level 4.5, Chloride Level 97L, Carbon Dioxide Level 26, Anion Gap 9, Blood Urea Nitrogen 8, Creatinine 1.16, Estimat Glomerular Filtration Rate 83, BUN/Creatinine Ratio 7, Glucose Level 116H, Calcium Level 8.2L, Corrected Calcium 9.2, Total Bilirubin 0.7, Aspartate Amino Transf (AST/SGOT) 55H, Alanine Aminotransferase (ALT/SGPT) 47, Alkaline Phosphatase 132, Total Protein 7.0, Albumin 2.8L Home Meds Active Amiodarone HCl 200 Mg Tablet 400 Mg PO Q12H 30 Days Spironolactone 25 Mg Tablet 25 Mg PO DAILY Metoprolol Succinate 25 Mg Tab.er.24h 12.5 Mg PO DAILY Atorvastatin Calcium 20 Mg Tablet 20 Mg PO HS Losartan Potassium 25 Mg Tablet 12.5 Mg PO DAILY Reported Furosemide 40 Mg Tablet 40 Mg PO DAILY Assessment/Pt DC Instructions Follow up with primary physician within a week of discharge. Follow up with Cardiology as directed. Discharge Diet: Cardiac Diet Activity as Tolerated: Yes Discharge Physical Examination Allergies: Coded Allergies: No Known Drug Allergies (Unverified , 10/05/19) General Appearance: No Apparent Distress, WD/WN Respiratory: Lungs Clear Cardiovascular: Regular Rate, Rhythm, No Murmur Gastrointestinal: Normal Bowel Sounds, Non Tender, Soft Extremity: No Pedal Edema Skin: Normal Color, Warm/Dry Neurologic/Psychiatric: Alert, Normal Mood/Affect ALEJA TORRES MD Mar 13, 2021 11:08
[2021-03-13] MEDS: ENOXAPARIN 40 MG/0.4 ML (LOVENOX) SYR SC SCH (14:20)
[2021-03-13 15:46] VITALS: BP 105/59
== END 2021-03-13 18:05 | disposition home or self-care (01) | DRG 280 ==
LOC: EDUNIT# 21:40 → ER FS 21:42 → 4TH 03-08 01:00 → OBSVTOIN 03-11 16:37
PROVIDERS: ADMIT Internal Medicine; ATTEND Family Medicine
DX: I13.0 Hypertensive heart and chronic kidney disease with heart failure and stage 1 through stage 4 chronic kidney disease, or unspecified chronic kidney disease (principal); I50.23 Acute on chronic systolic (congestive) heart failure; I21.A1 Myocardial infarction type 2; U07.1 COVID-19; J96.00 Acute respiratory failure, unspecified whether with hypoxia or hypercapnia; N17.9 Acute kidney failure, unspecified; I47.2 Ventricular tachycardia; N18.9 Chronic kidney disease, unspecified; I42.0 Dilated cardiomyopathy; Z95.810 Presence of automatic (implantable) cardiac defibrillator; F17.210 Nicotine dependence, cigarettes, uncomplicated; I42.8 Other cardiomyopathies; Z79.82 Long term (current) use of aspirin; Z79.899 Other long term (current) drug therapy; I25.10 Atherosclerotic heart disease of native coronary artery without angina pectoris; I25.2 Old myocardial infarction; E78.00 Pure hypercholesterolemia, unspecified; Z86.73 Personal history of transient ischemic attack (TIA), and cerebral infarction without residual deficits; E78.2 Mixed hyperlipidemia; F15.90 Other stimulant use, unspecified, uncomplicated; R07.9 Chest pain, unspecified; R19.7 Diarrhea, unspecified; I27.20 Pulmonary hypertension, unspecified; I34.0 Nonrheumatic mitral (valve) insufficiency
CPT/HCPCS: 36415; 71045; 71046; 80048; 80053; 80061; 80306; 82805; 83735; 83880; 84484; 85007; 85025; 85027; 85379; 86141; 87636; 87804; 93005; 93041; 94640; 94664; 94760; G0378

== ENCOUNTER 2021-04-05 03:58 | Emergency (ER) | payer OTHER ==
[~2021-04-05] VITALS: Ht 172.7 cm; Wt 78.0 kg
[~2021-04-05 03:58] MED LIST changes: +ATOR20TA66 PO; +MTP25TSR PO; +SPIR25TA5 PO
[2021-04-05 04:28] LABS: ALBUMIN 3.6 GM/DL (3.2-4.5); POTASSIUM 4.3 MMOL/L (3.6-5.0)
[2021-04-05 04:29] LABS: CALCIUM 8.7 MG/DL (8.5-10.1)
[2021-04-05 04:30] LABS: TOTAL PROTEIN 8.1 GM/DL (6.4-8.2)
[2021-04-05] MEDS ORDERED: NITROGLYCERIN 0.4 MG SL TABS BTL 25'S SL PRN (04:30)
[2021-04-05] MEDS ORDERED: ASPIRIN 81 MG CHEW (CHILDREN'S ASA) PO ONE (04:30)
[2021-04-05 04:31] LABS: BASOPHILS % (AUTO) 0 % (0-10); EOSINOPHILS % (AUTO) 0 % (0-10); HEMATOCRIT 43 % (40-54); HEMOGLOBIN 13.8 g/dL (13.3-17.7); LYMPHOCYTES # (AUTO) 0.9 10^3/uL (1.0-4.0); LYMPHOCYTES % (AUTO) 18 % (12-44); MEAN CORPUSCULAR HEMOGLOBIN 28 pg (25-34); MEAN CORPUSCULAR HGB CONC 32 g/dL (32-36); MEAN CORPUSCULAR VOLUME 87 fL (80-99); MEAN PLATELET VOLUME 10.3 fL (9.0-12.2); MONOCYTES # (AUTO) 0.7 10^3/uL (0.0-1.0); MONOCYTES % (AUTO) 14 % (0-12); NEUTROPHILS # (AUTO) 3.3 10^3/uL (1.8-7.8); NEUTROPHILS % (AUTO) 68 % (42-75); PLATELET COUNT 187 10^3/uL (130-400); WHITE BLOOD COUNT 4.9 10^3/uL (4.3-11.0)
[2021-04-05 04:32] LABS: BILIRUBIN,TOTAL 2.6 MG/DL (0.1-1.0); INR 1.6 (0.8-1.4); PROTHROMBIN TIME PATIENT 19.7 SEC (12.2-14.7)
[2021-04-05 04:34] LABS: CREATININE SERUM 1.42 MG/DL (0.60-1.30)
[2021-04-05 05:06] LABS: AMPHETAMINE SCREEN, URINE POSITIVE (NEGATIVE); BARBITURATE SCREEN URINE NEGATIVE (NEGATIVE); BENZODIAZEPINES SCREEN URINE NEGATIVE (NEGATIVE); CANNABINOID SCREEN, URINE POSITIVE (NEGATIVE); COCAINE SCREEN URINE NEGATIVE (NEGATIVE); METHADONE STAT NEGATIVE (NEGATIVE); METHAMPHETAMINE SCREEN URINE S POSITIVE (NEGATIVE); OPIATE SCREEN URINE NEGATIVE (NEGATIVE); OXYCODONE STAT NEGATIVE (NEGATIVE); PROPOXYPHENE STAT NEGATIVE (NEGATIVE); TRICYCLIC ANTIDEPRESSANTS SCRE NEGATIVE (NEGATIVE)
[2021-04-05] MEDS ORDERED: FUROSEMIDE 40 MG/4 ML INJ (LASIX) IVP ONE (06:00)
[2021-04-05] MEDS ORDERED: IOHEXOL 350 MG/ML 100 ML (OMNIPAQUE 350) VIAL IV ONE (06:30)
[2021-04-05] MEDS ORDERED: CATHETER FLUSH 10 ML SYR IV PRN (06:30)
[2021-04-05] MEDS ORDERED: HOLD METFORMIN - RECEIVED CONTRAST 20 ML VIAL IV SCH (06:30)
[2021-04-05] MEDS ORDERED: NS 100 ML (IVPB) BAG IV ONE (06:30)
--- NOTE | 2021-04-05 06:33 | Diagnostic Imaging Report ---
PROCEDURE: CT angiography of the chest with contrast. TECHNIQUE: Multiple contiguous axial images were obtained through the chest after uneventful bolus administration of intravenous contrast. 3D reconstructed CTA MIP acquisitions were also performed. Auto Exposure Controls were utilized during the CT exam to meet ALARA standards for radiation dose reduction. INDICATION: Chest pain There is some patchy infiltrate in the lingula segment left upper lobe and in the anterior basal segment of the left lower lobe. There is cardiomegaly. There is no evidence of right ventricular strain. There are no pulmonary emboli. There is no hilar or mediastinal lymphadenopathy. Aorta appears to be intact. Patient has a unipolar pacemaker with ICD. IMPRESSION: Cardiomegaly without evidence of pulmonary venous hypertension. There is no pericardial effusion. There are some patchy infiltrates in the left lower lung that could be pneumonia and/or atelectasis. Dictated by: Dictated on workstation # [id number]
--- NOTE | 2021-04-05 06:53 | ED Chest Pain ---
General Chief Complaint: Chest Pain Stated Complaint: CP Nursing Triage Note: Pt arrives via POV from home for c/o non-radiating midline chest pain; onset yesterday. Pt reports he has a implanted defibrilator. Pt also reports he is supposed to be taking blood pressure medications et blood thinners, but has not taken them in three weeks as his insurance will not cover them. Pt unsure of what his medications are. Source: patient Exam Limitations: no limitations (EMERY CUBA MD) History of Present Illness Date Seen by Provider: Apr 05, 2021 Time Seen by Provider: 04:07 Initial Comments This 41-year-old gentleman presents to the emergency room with complaints of chest pain and shortness of breath. He has a history of severe cardiomyopathy and was admitted to the hospital about 3 weeks ago. He admits to not taking any of his medications since discharge because they were too expensive to fill. He has a history of methamphetamine abuse. He has had some increasing edema of his legs as well. He had COVID-19 in the beginning of February when he was also admitted for the cardiomyopathy. (EMERY CUBA MD) Allergies and Home Medications Allergies Coded Allergies: No Known Drug Allergies (Unverified , 10/05/19) Patient Home Medication List Home Medication List Reviewed: Yes (EMERY CUBA MD) Amiodarone HCl (Amiodarone HCl) 200 Mg Tablet, 400 MG PO Q12H Prescribed by: ALEJA TORRES on 03/13/21 0723 Atorvastatin Calcium (Atorvastatin Calcium) 20 Mg Tablet, 20 MG PO HS Prescribed by: ALEJA TORRES on 03/11/21 1429 Furosemide (Furosemide) 40 Mg Tablet, 40 MG PO DAILY, (Reported) Entered as Reported by: DIVYA SHOOK on 06/04/20 0944 Losartan Potassium (Losartan Potassium) 25 Mg Tablet, 12.5 MG PO DAILY Prescribed by: ALEJA TORRES on 03/11/21 1429 Metoprolol Succinate (Metoprolol Succinate) 25 Mg Tab.er.24h, 12.5 MG PO DAILY Prescribed by: ALEJA TORRES on 03/11/21 142 Spironolactone (Spironolactone) 25 Mg Tablet, 25 MG PO DAILY Prescribed by: ALEJA TORRES on 03/11/21 1429 Review of Systems Review of Systems Constitutional: no symptoms reported EENTM: No Symptoms Reported Respiratory: See HPI Cardiovascular: See HPI Gastrointestinal: No Symptoms Reported Genitourinary: No Symptoms Reported Musculoskeletal: no symptoms reported Skin: no symptoms reported Psychiatric/Neurological: See HPI Endocrine: No Symptoms Reported Hematologic/Lymphatic: No Symptoms Reported (EMERY CUBA MD) Past Twouvhb-Cziwxy-Raixgq Hx Patient Social History Tobacco Use?: No Use of E-Cig and/or Vaping dev: No Substance use?: Yes Substance type: Marijuana Alcohol Use?: No Pt feels they are or have been: No (EMERY CUBA MD) Immunizations Up To Date Tetanus Booster (TDap): Unknown First/Initial COVID19 Vaccinat: no Second COVID19 Vaccination Gaudencio: NO Third COVID19 Vaccination Date: no (EMERY CUBA MD) Seasonal Allergies Seasonal Allergies: Yes (USE INHALER) (EMERY CUBA MD) Past Medical History Surgery/Hospitalization HX: Enlarged Heart, Cardiac Surgeries: Yes (CARDIAC CATH 11/2019--NO INTERVENTION;ICD/DEFIBRILLATOR 06/04/20) Cardiac (Cardiac cath in 2019 demonstrating no obstructive coronary artery disease), Defibrillator Respiratory: Yes Asthma Currently Using CPAP: No Currently Using BIPAP: No Cardiac: Yes (CHF-NEEDS LIFEVEST/REFUSES TO WEAR;NSTEM I;EF10%;LBBB;DEFIBRILLATOR 06/04/20) Cardiomyopathy, Chronic Edema/Swelling, Heart Attack, High Cholesterol, Hypertension Neurological: Yes Stroke Sexually Transmitted Disease: Yes (CHLAMYDIA; GONORRHEA 10/05/19) Genitourinary: No Gastrointestinal: No Musculoskeletal: No Endocrine: No HEENT: No Cancer: No Psychosocial: Yes (SUBSTANCE ABUSE) Integumentary: No Blood Disorders: No (EMERY CUBA MD) Family Medical History Asthma AUNT Hypertension MOTHER No Pertinent Family Hx HAS BEEN OUT OF INTERMEDIATE SINCE 2019 VERY NON-COMPLIANT IN ALL ASPECTS OF CARE NEEDS LIFE VEST-=-REFUSES TO WEAR; NSTEMI; EF 10%; LBBB ICD/DEFIBRILLATOR PLACED BY DR. MAGDALENO 06/04/20 SOCIAL HISTORY: -ETOH-RARELY USES -DRUGS--METH, COCAINE, THC. DENIES IV USE-STATES HE SMOKES THEM -NO TOBACCO PAST SURGICAL HISTORY: -CARDIAC CATH 11/2019--NO INTERVENTION -ICD DEFIBRILLATOR PLACED 06/04/[address] MAGDALENO ECHOCARDIOGRAM 05/17/2020 (EMERY CUBA MD) Physical Exam Vital Signs Vital Signs - First Documented 04/05/21 03:58 Temp 36.7 Pulse 96 Resp 20 B/P (MAP) 133/110 (118) Pulse Ox 97 O2 Delivery Room Air (KAYLA COLÓN MD) Vital Signs Capillary Refill : Less Than 3 Seconds (EMERY CUBA MD) Height, Weight, BMI Height: '" Weight: lbs. oz. 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 Skin: Normal Color, Warm/Dry (EMERY CUBA MD) Progress/Results/Core Measures Results/Orders Lab Results Laboratory Tests Test 04/05/21 04:04 04/05/21 04:30 04/05/21 06:17 Range/Units White Blood Count 4.9 4.3-11.0 10^3/uL Red Blood Count 5.01 4.30-5.52 10^6/uL Hemoglobin 13.8 13.3-17.7 g/dL Hematocrit 43 40-54 % Mean Corpuscular Volume 87 80-99 fL Mean Corpuscular Hemoglobin 28 25-34 pg Mean Corpuscular Hemoglobin Concent 32 32-36 g/dL Red Cell Distribution Width 15.9 H 10.0-14.5 % Platelet Count 187 130-400 10^3/uL Mean Platelet Volume 10.3 9.0-12.2 fL Immature Granulocyte % (Auto) 0 % Neutrophils (%) (Auto) 68 42-75 % Lymphocytes (%) (Auto) 18 12-44 % Monocytes (%) (Auto) 14 H 0-12 % Eosinophils (%) (Auto) 0 0-10 % Basophils (%) (Auto) 0 0-10 % Neutrophils # (Auto) 3.3 1.8-7.8 10^3/uL Lymphocytes # (Auto) 0.9 L 1.0-4.0 10^3/uL Monocytes # (Auto) 0.7 0.0-1.0 10^3/uL Eosinophils # (Auto) 0.0 0.0-0.3 10^3/uL Basophils # (Auto) 0.0 0.0-0.1 10^3/uL Immature Granulocyte # (Auto) 0.0 0.0-0.1 10^3/uL Prothrombin Time 19.7 H 12.2-14.7 SEC INR Comment 1.6 H 0.8-1.4 Activated Partial Thromboplast Time 33 24-35 SEC D-Dimer 2.80 H 0.00-0.49 UG/ML Sodium Level 128 L 135-145 MMOL/L Potassium Level 4.3 3.6-5.0 MMOL/L Chloride Level 92 L 98-107 MMOL/L Carbon Dioxide Level 25 21-32 MMOL/L Anion Gap 11 5-14 MMOL/L Blood Urea Nitrogen 18 7-18 MG/DL Creatinine 1.42 H 0.60-1.30 MG/DL Estimat Glomerular Filtration Rate 63 BUN/Creatinine Ratio 13 Glucose Level 89 70-105 MG/DL Calcium Level 8.7 8.5-10.1 MG/DL Corrected Calcium 9.0 8.5-10.1 MG/DL Magnesium Level 2.0 1.6-2.4 MG/DL Total Bilirubin 2.6 H 0.1-1.0 MG/DL Aspartate Amino Transf (AST/SGOT) 239 H 5-34 U/L Alanine Aminotransferase (ALT/SGPT) 145 H 0-55 U/L Alkaline Phosphatase 152 H 40-136 U/L Myoglobin 54.3 10.0-92.0 NG/ML Troponin I 0.102 H 0.092 H <0.028 NG/ML B-Type Natriuretic Peptide 2827.0 H <100.0 PG/ML Total Protein 8.1 6.4-8.2 GM/DL Albumin 3.6 3.2-4.5 GM/DL Serum Alcohol < 10 <10 MG/DL Urine Opiates Screen NEGATIVE NEGATIVE Urine Oxycodone Screen NEGATIVE NEGATIVE Urine Methadone Screen NEGATIVE NEGATIVE Urine Propoxyphene Screen NEGATIVE NEGATIVE Urine Barbiturates Screen NEGATIVE NEGATIVE Ur Tricyclic Antidepressants Screen NEGATIVE NEGATIVE Urine Phencyclidine Screen NEGATIVE NEGATIVE Urine Amphetamines Screen POSITIVE H NEGATIVE Urine Methamphetamines Screen POSITIVE H NEGATIVE Urine Benzodiazepines Screen NEGATIVE NEGATIVE Urine Cocaine Screen NEGATIVE NEGATIVE Urine Cannabinoids Screen POSITIVE H NEGATIVE (KAYLA COLÓN MD) Medications Given in ED Current Medications Medications Dose Ordered Sig/Nelly Route Start Time Stop Time Status Last Admin Dose Admin Aspirin 324 mg ONCE ONCE PO 04/05/21 04:30 04/05/21 04:31 DC 04/05/21 04:44 324 MG Furosemide 40 mg ONCE ONCE IVP 04/05/21 06:00 04/05/21 06:01 DC 04/05/21 05:56 40 MG Iohexol 100 ml ONCE ONCE IV 04/05/21 06:30 04/05/21 06:31 DC 04/05/21 06:21 85 ML Nitroglycerin 0.4 mg UD PRN SL 04/05/21 04:30 04/05/21 04:44 0.4 MG Sodium Chloride 10 ml NEEDED PRN IV 04/05/21 06:30 04/05/21 06:22 10 ML Sodium Chloride 100 ml ONCE ONCE IV 04/05/21 06:30 04/05/21 06:31 DC 04/05/21 06:22 80 ML (KAYLA COLÓN MD) Vital Signs/I&O 04/05/21 03:58 Temp 36.7 Pulse 96 Resp 20 B/P (MAP) 133/110 (118) Pulse Ox 97 O2 Delivery Room Air (KAYLA COLÓN MD) Blood Pressure Mean: 118 Progress Progress Note : Time: 07:06 Progress Note Patient received aspirin and nitroglycerin. He cannot determine if his pain is improved. He received a dose of Lasix 40 mg IV and has had significant urine output. His breathing appears improved with lower tachypnea. Labs were evaluated and he was found to have an elevated D-dimer. CT angiogram of the chest showed no evidence of pulmonary embolus. There was cardiomegaly with some evidence of failure versus infiltrate. Drug screen was positive for methamphetamine which patient admits to using about 4 days ago by smoking it. Transaminases were noted to be elevated. An acute hepatitis panel was ordered for further evaluation. Care is being transitioned to Dr. Colón at this time. He will investigate means to obtain medications for this patient and appropriate follow-up to trend his transaminases. Patient will hopefully be able to be discharged home if these issues can be addressed. (EMERY CUBA MD) Progress Note : Progress Note 0824: Patient resting peacefully. I have discussed the case with Dr. Torres. She will resend all of his meds to [facility] at [place] and he can pick them up there. This should be much less expensive for him. I did discuss this with the patient. He was with that plan but is concerned because he has no way to get back to [place]. We are working on travel arrangements now. He has urinated almost to complete urinals full during his stay. No respiratory distress. Does have heart failure but does not have findings on x-ray concerning for pulmonary edema or volume overload. The question of atelectasis versus infiltrate is likely residual after Covid infection and has known findin gs concerning for pneumonia currently. No indication to treat pneumonia currently. Discharged home with return precautions. Patient verbalized understanding of instructions and agreement with plan. (KAYLA COLÓN MD) Initial ECG Impression Date: Apr 05, 2021 Initial ECG Impression Time: 03:59 Initial ECG Rate: 96 Initial ECG Rhythm: Normal Sinus Comment Sinus rhythm with left axis deviation. Nonspecific interventricular conduction delay. Similar but slower rate to previous of 03/11/2021. Interpreted by me. (KAYLA COLÓN MD) Diagnostic Imaging Diagonstic Imaging: Xray Plain Films/CT/US/NM/MRI: chest Comments Chest x-ray viewed by me and report reviewed. See report below: NAME: CHERRIE CHUNG MED REC#: [id number] PT STATUS: REG ER : 1980 PHYSICIAN: EMERY CUBA MD ADMIT DATE: 04/05/21/ER Draft Date of Exam:04/05/21 CHEST 1 VIEW, AP/PA ONLY INDICATION: Chest pain Portable chest 4:48 AM There is a unipolar pacemaker. There is cardiomegaly. Pulmonary vascularity is normal. Lungs are clear. IMPRESSION: Cardiomegaly without evidence of pulmonary venous hypertension. No change compared to 03/10/2021. Dictated on workstation # [id number] Dict: 04/05/2158 Trans: 04/05/2159 CVB [id number] Interpreted by: KAYLA COLUNGA MD Diagonstic Imaging: CT Plain Films/CT/US/NM/MRI: chest Comments CT angiogram viewed by me and report reviewed. See report below: NAME: CHERRIE CHUNG [facility] REC#: [id number] PT STATUS: REG ER : 1980 PHYSICIAN: EMERY CUBA MD ADMIT DATE: 04/05/21/ER Signed Date of Exam:04/05/21 CT ANGIO CHEST W PROCEDURE: CT angiography of the chest with contrast. TECHNIQUE: Multiple contiguous axial images were obtained through the chest after uneventful bolus administration of intravenous contrast. 3D reconstructed CTA MIP acquisitions were also performed. Auto Exposure Controls were utilized during the CT exam to meet ALARA standards for radiation dose reduction. INDICATION: Chest pain There is some patchy infiltrate in the lingula segment left upper lobe and in the anterior basal segment of the left lower lobe. There is cardiomegaly. There is no evidence of right ventricular strain. There are no pulmonary emboli. There is no hilar or mediastinal lymphadenopathy. Aorta appears to be intact. Patient has a unipolar pacemaker with ICD. IMPRESSION: Cardiomegaly without evidence of pulmonary venous hypertension. There is no pericardial effusion. There are some patchy infiltrates in the left lower lung that could be pneumonia and/or atelectasis. Dictated by: Dictated on workstation # [id number] Dict: 04/05/21 0629 Trans: 04/05/2131 TCB [id number] Interpreted by: KAYLA COLUNGA MD Electronically signed by: KAYLA COLUNGA MD 04/05/21630 (EMERY CUBA MD) Departure Impression Primary Impression: Chest pain Qualified Codes: R07.9 - Chest pain, unspecified Additional Impressions: Non-ischemic cardiomyopathy Elevated transaminase level Methamphetamine abuse Disposition: HOME, SELF-CARE Condition: Stable Departure-Patient Inst. Decision time for Depature: 08:29 (KAYLA COLÓN MD) Referrals: AMARJIT CONROY MD (PCP/Family) Primary Care Physician Patient Instructions: Chest Pain (DC), Drug Abuse and Drug Addiction (DC), Heart Failure ED, Liver Function Test Add. Discharge Instructions: All discharge instructions reviewed with patient and/or family. Voiced understanding. Go to the [facility] pharmacy to corn picker your medications and take those as directed. Follow-up with your doctor for recheck and further evaluation. 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 You should stop using methamphetamine and should stop smoking. Return for worse pain, fever, vomiting, weakness, breathing problems or other concerns as needed. Your liver enzymes were elevated and screening for hepatitis was initiated. If this is positive, you will be called. Follow-up with your doctor regarding this as well. Copy Copies To 1: AMARJIT CONROY MD, JOSHUA T MD Apr 05, 2021 06:53 KAYLA COLÓN MD Apr 05, 2021 08:30
--- NOTE | 2021-04-05 07:00 | Diagnostic Imaging Report ---
INDICATION: Chest pain Portable chest 4:48 AM There is a unipolar pacemaker. There is cardiomegaly. Pulmonary vascularity is normal. Lungs are clear. IMPRESSION: Cardiomegaly without evidence of pulmonary venous hypertension. No change compared to 03/10/2021. Dictated by: Dictated on workstation # [id number]
[2021-04-05 11:08] VITALS: BP 129/90
[2021-04-05 21:16] LABS: HEPATITIS C ANTIBODY C Non-Reactive (Non-Reactive)
== END 2021-04-05 11:08 | disposition home or self-care (01) ==
LOC: EDUNIT# 03:58 → ER 04:00
DX: R07.9 Chest pain, unspecified (principal); I42.8 Other cardiomyopathies; R74.01 Elevation of levels of liver transaminase levels; F15.10 Other stimulant abuse, uncomplicated; J45.909 Unspecified asthma, uncomplicated; I25.2 Old myocardial infarction; I11.0 Hypertensive heart disease with heart failure; I50.9 Heart failure, unspecified; E78.00 Pure hypercholesterolemia, unspecified; Z86.73 Personal history of transient ischemic attack (TIA), and cerebral infarction without residual deficits; Z79.899 Other long term (current) drug therapy
CPT/HCPCS: 71045; 71275; 80053; 80074; 80306; 83735; 83874; 83880; 84484; 85025; 85379; 85610; 85730; 93005; 93041; 99284; G0480; 36415; 80320

== ENCOUNTER 2021-07-29 15:05 | Emergency (ER) | payer OTHER ==
[~2021-07-29] VITALS: Ht 172 cm; Wt 72.5 kg
--- NOTE | 2021-07-29 15:22 | ED Cardiac General ---
History of Present Illness General Chief Complaint: Cardiac/General Problems Stated Complaint: PACEMAKER ISSUE Source: patient Exam Limitations: no limitations History of Present Illness Date Seen by Provider: July 29, 2021 Time Seen by Provider: 15:06 Initial Comments 41-year-old male with past medical history of nonischemic cardiomyopathy with an ejection fraction around 15% with defibrillator in place coming in in custody stating his defibrillator went off twice in the past few days. He presented to the walk-in clinic today, they did an EKG, and referred him here. He was not feeling any symptoms new prior to him feeling like he was shocked. Denies any chest pain, says he is chronically short of breath which is not changed, and has been taking all of his medications daily including his Lasix. He believes he could have gained some water weight in his abdomen, and he believes his Lasix might not be working as well as usual. He is otherwise denying any cough, fever, weakness, numbness, rash, headache, or any other concerns. Allergies and Home Medications Allergies Coded Allergies: No Known Drug Allergies (Unverified , 10/05/19) Patient Home Medication List Home Medication List Reviewed: Yes Amiodarone HCl (Amiodarone HCl) 200 Mg Tablet, 400 MG PO Q12H Prescribed by: ALEJA TORRES on 03/13/21 0723 Atorvastatin Calcium (Atorvastatin Calcium) 20 Mg Tablet, 20 MG PO HS Prescribed by: ALEJA TORRES on 03/11/21 1429 Furosemide (Furosemide) 40 Mg Tablet, 40 MG PO DAILY, (Reported) Entered as Reported by: DIVYA SHOOK on 06/04/20 0944 Losartan Potassium (Losartan Potassium) 25 Mg Tablet, 12.5 MG PO DAILY Prescribed by: ALEJA TORRES on 03/11/21 1429 Metoprolol Succinate (Metoprolol Succinate) 25 Mg Tab.er.24h, 12.5 MG PO DAILY Prescribed by: ALEJA TORRES on 03/11/21 1429 Spironolactone (Spironolactone) 25 Mg Tablet, 25 MG PO DAILY Prescribed by: ALEJA TORRES on 03/11/21 1429 Review of Systems Review of Systems Constitutional: No fever EENTM: No Blurred Vision Respiratory: Shortness of Air Cardiovascular: Denies Chest Pain Gastrointestinal: Denies Nausea Genitourinary: No Symptoms Reported Musculoskeletal: no symptoms reported Skin: no symptoms reported Psychiatric/Neurological: No Symptoms Reported Endocrine: No Symptoms Reported Hematologic/Lymphatic: No Symptoms Reported All Other Systems Reviewed Negative Unless Noted: Yes Past Fcrdbka-Sjnwqk-Xdmgnh Hx Patient Social History Substance use?: No Immunizations Up To Date Tetanus Booster (TDap): Unknown First/Initial COVID19 Vaccinat: no Second COVID19 Vaccination Gaudencio: NO Third COVID19 Vaccination Date: no Seasonal Allergies Seasonal Allergies: Yes (USE INHALER) Past Medical History Surgery/Hospitalization HX: Enlarged Heart, Cardiac Surgeries: Yes (CARDIAC CATH 11/2019--NO INTERVENTION;ICD/DEFIBRILLATOR 06/04/20) Cardiac, Defibrillator Respiratory: Yes Asthma Currently Using CPAP: No Currently Using BIPAP: No Cardiac: Yes (CHF-NEEDS LIFEVEST/REFUSES TO WEAR;NSTEMI;EF10%;LBBB;DEFIBRILLATO R 06/04/20) Cardiomyopathy, Chronic Edema/Swelling, Heart Attack, High Cholesterol, Hypertension Neurological: Yes Stroke Sexually Transmitted Disease: Yes (CHLAMYDIA; GONORRHEA 10/05/19) Genitourinary: No Gastrointestinal: No Musculoskeletal: No Endocrine: No HEENT: No Cancer: No Psychosocial: Yes (SUBSTANCE ABUSE) Integumentary: No Blood Disorders: No Family Medical History Asthma AUNT Hypertension MOTHER No Pertinent Family Hx HAS BEEN OUT OF INTERMEDIATE SINCE 2019 VERY NON-COMPLIANT IN ALL ASPECTS OF CARE NEEDS LIFE VEST-=-REFUSES TO WEAR; NSTEMI; EF 10%; LBBB ICD/DEFIBRILLATOR PLACED BY DR. ENCISO 06/04/20 SOCIAL HISTORY: -ETOH-RARELY USES -DRUGS--METH, COCAINE, THC. DENIES IV USE-STATES HE SMOKES THEM -NO TOBACCO PAST SURGICAL HISTORY: -CARDIAC CATH 11/2019--NO INTERVENTION -ICD DEFIBRILLATOR PLACED 06/04/[address] ENCISO ECHOCARDIOGRAM 05/17/2020 Physical Exam Vital Signs Vital Signs - First Documented 07/29/21 15:45 Temp 36.4 Pulse 82 Resp 18 B/P (MAP) 131/99 (110) Pulse Ox 100 O2 Delivery Room Air Capillary Refill : Height, Weight, BMI Height: '" Weight: lbs. oz. kg; 26.00 BMI Method: General Appearance: No Apparent Distress, WD/WN HEENT: PERRL/EOMI, Normal ENT Inspection, Pharynx Normal Neck: Full Range of Motion, Normal Inspection, Non Tender, Supple Respiratory: Chest Non Tender, Lungs Clear, Normal Breath Sounds, No Accessory Muscle Use, No Respiratory Distress Cardiovascular: Regular Rate, Rhythm, No Edema, Normal Peripheral Pulses Gastrointestinal: Normal Bowel Sounds, Non Tender, Soft; No Distended, No Guarding Extremity: Normal Capillary Refill, Normal Inspection, Normal Range of Motion, Non Tender, No Calf Tenderness, No Pedal Edema Neurologic/Psychiatric: Alert, No Motor/Sensory Deficits, Normal Mood/Affect Skin: Normal Color, Warm/Dry Lymphatic: No Adenopathy Progress/Results/Core Measures Results/Orders Lab Results Laboratory Tests Test 07/29/21 15:53 Range/Units White Blood Count 4.2 L 4.3-11.0 10^3/uL Red Blood Count 4.82 4.30-5.52 10^6/uL Hemoglobin 13.0 L 13.3-17.7 g/dL Hematocrit 40 40-54 % Mean Corpuscular Volume 83 80-99 fL Mean Corpuscular Hemoglobin 27 25-34 pg Mean Corpuscular Hemoglobin Concent 33 32-36 g/dL Red Cell Distribution Width 17.8 H 10.0-14.5 % Platelet Count 195 130-400 10^3/uL Mean Platelet Volume 10.1 9.0-12.2 fL Immature Granulocyte % (Auto) 0 % Neutrophils (%) (Auto) 65 42-75 % Lymphocytes (%) (Auto) 21 12-44 % Monocytes (%) (Auto) 11 0-12 % Eosinophils (%) (Auto) 1 0-10 % Basophils (%) (Auto) 1 0-10 % Neutrophils # (Auto) 2.7 1.8-7.8 10^3/uL Lymphocytes # (Auto) 0.9 L 1.0-4.0 10^3/uL Monocytes # (Auto) 0.5 0.0-1.0 10^3/uL Eosinophils # (Auto) 0.1 0.0-0.3 10^3/uL Basophils # (Auto) 0.1 0.0-0.1 10^3/uL Immature Granulocyte # (Auto) 0.0 0.0-0.1 10^3/uL Prothrombin Time 17.0 H 12.2-14.7 SEC INR Comment 1.3 0.8-1.4 Activated Partial Thromboplast Time 33 24-35 SEC Sodium Level 134 L 135-145 MMOL/L Potassium Level 4.0 3.6-5.0 MMOL/L Chloride Level 98 98-107 MMOL/L Carbon Dioxide Level 23 21-32 MMOL/L Anion Gap 13 5-14 MMOL/L Blood Urea Nitrogen 13 7-18 MG/DL Creatinine 1.06 0.60-1.30 MG/DL Estimat Glomerular Filtration Rate 89 BUN/Creatinine Ratio 12 Glucose Level 90 70-105 MG/DL Calcium Level 9.2 8.5-10.1 MG/DL Corrected Calcium 9.4 8.5-10.1 MG/DL Magnesium Level 1.9 1.6-2.4 MG/DL Total Bilirubin 1.8 H 0.1-1.0 MG/DL Aspartate Amino Transf (AST/SGOT) 45 H 5-34 U/L Alanine Aminotransferase (ALT/SGPT) 24 0-55 U/L Alkaline Phosphatase 181 H 40-136 U/L Troponin I < 0.30 <0.30 NG/ML Pro-B-Type Natriuretic Peptide 2877.0 H <75.0 PG/ML Total Protein 8.7 H 6.4-8.2 GM/DL Albumin 3.8 3.2-4.5 GM/DL My Orders Orders - MENG LAIRD MD Cbc With Automated Diff (07/29/21 15:19) Magnesium (07/29/21 15:19) Chest 1 View Ap/Pa Only (07/29/21 15:19) Ekg Tracing (07/29/21 15:19) Comprehensive Metabolic Panel (07/29/21 15:19) Protime With Inr (07/29/21 15:19) Partial Thromboplastin Time (07/29/21 15:19) O2 (07/29/21 15:19) Monitor-Rhythm Ecg Trace Only (07/29/21 15:19) Ed Iv/Invasive Line Start (07/29/21 15:19) Troponin I Fs (07/29/21 15:19) Probnp Fs (07/29/21 15:19) Furosemide Injection (Lasix Injection) (07/29/21 17:15) Medications Given in ED Current Medications Medications Dose Ordered Sig/Nelly Route Start Time Stop Time Status Last Admin Dose Admin Furosemide 80 mg ONCE ONCE IVP 07/29/21 17:15 07/29/21 17:16 DC 07/29/21 17:23 80 MG Vital Signs/I&O 07/29/21 07/29/21 15:45 17:15 Temp 36.4 Pulse 82 79 Resp 18 18 B/P (MAP) 131/99 (110) 99/59 Pulse Ox 100 99 O2 Delivery Room Air Room Air Progress Progress Note : Progress Note 41-year-old male with above history coming in because he felt like his pacemaker shocked him. ABCs were intact and vitals were stable on presentation. Physical exam reassuring with no focal abnormalities. Specifically, he has no crackles, and no signs of edema. He does believe he could be having some increasing fluid in his abdomen and he believes his Lasix is not working as much as usual. EKG appears similar to prior with no acute ischemic changes. Troponin is negative and proBNP around 2300 which is about 2000 less than last time he had it drawn. We interrogated his [employer], and he had 1 episode of tachycardia, there were no interventions including no shocks. I contacted Dr. Enciso, the patient's animal scientist and discussed the case with him. He is okay with him going home with normal outpatient follow-up. He was then discharged home in stable condition with strict return precautions. Prior to going, I did give him 1 dose of IV Lasix to try to increase his diuresis. Initial ECG Impression Date: July 29, 2021 Initial ECG Impression Time: 15:26 Initial ECG Rate: 81 Initial ECG Rhythm: Normal Sinus Comment Wide QRS with left bundle branch block, no significant ST changes accounting for this, overall appears similar to prior EKG Diagnostic Imaging Diagonstic Imaging: Xray (chest) Comments [facility] [place] [place] NAME: CHERRIE CHUNG MED REC#: [id number] PT STATUS: REG ER : 1980 PHYSICIAN: MENG LAIRD MD ADMIT DATE: 07/29/21/ER FS Draft Date of Exam:07/29/21 CHEST 1 VIEW AP/PA ONLY INDICATION: Shortness of breath. EXAMINATION: Portable chest at 3:30 p.m. FINDINGS: There is a unipolar pacemaker with ICD. Heart is enlarged. Pulmonary vascularity is normal. Lungs are clear. IMPRESSION: Cardiomegaly without evidence of pulmonary venous hypertension. Dictated on workstation # [id number] Dict: 07/29/21 1535 Trans: 07/29/21 1537 [id number] Interpreted by: KAYLA COLUNGA MD Electronically signed by: Departure Impression Primary Impression: Pacemaker reprogramming/check Additional Impression: Shortness of breath Disposition: HOME, SELF-CARE Condition: Stable Departure-Patient Inst. Decision time for Depature: 17:04 Referrals: AMARJIT CONROY MD (PCP/Family) Primary Care Physician Patient Instructions: CHF Add. Discharge Instructions: Fortunately, your pacemaker did not actually fire. I contacted Dr. Enciso, and he wants to follow-up with you as scheduled, if you are not on the schedule then please call and make an appointment to see him within the next couple of months. Take all of your medications as prescribed. MENG LAIRD MD July 29, 2021 15:22
--- NOTE | 2021-07-29 15:38 | Diagnostic Imaging Report ---
INDICATION: Shortness of breath. EXAMINATION: Portable chest at 3:30 p.m. FINDINGS: There is a unipolar pacemaker with ICD. Heart is enlarged. Pulmonary vascularity is normal. Lungs are clear. IMPRESSION: Cardiomegaly without evidence of pulmonary venous hypertension. Dictated by: Dictated on workstation # [id number]
[2021-07-29 16:00] LABS: BASOPHILS # (AUTO) 0.1 10^3/uL (0.0-0.1); BASOPHILS % (AUTO) 1 % (0-10); EOSINOPHILS # (AUTO) 0.1 10^3/uL (0.0-0.3); EOSINOPHILS % (AUTO) 1 % (0-10); HEMATOCRIT 40 % (40-54); LYMPHOCYTES # (AUTO) 0.9 10^3/uL (1.0-4.0); LYMPHOCYTES % (AUTO) 21 % (12-44); MEAN CORPUSCULAR HEMOGLOBIN 27 pg (25-34); MEAN CORPUSCULAR HGB CONC 33 g/dL (32-36); MEAN CORPUSCULAR VOLUME 83 fL (80-99); MEAN PLATELET VOLUME 10.1 fL (9.0-12.2); MONOCYTES # (AUTO) 0.5 10^3/uL (0.0-1.0); MONOCYTES % (AUTO) 11 % (0-12); NEUTROPHILS # (AUTO) 2.7 10^3/uL (1.8-7.8); NEUTROPHILS % (AUTO) 65 % (42-75); PLATELET COUNT 195 10^3/uL (130-400); WHITE BLOOD COUNT 4.2 10^3/uL (4.3-11.0)
[2021-07-29 16:12] LABS: INR 1.3 (0.8-1.4)
[2021-07-29 16:27] LABS: ALBUMIN 3.8 GM/DL (3.2-4.5); BILIRUBIN,TOTAL 1.8 MG/DL (0.1-1.0); CALCIUM 9.2 MG/DL (8.5-10.1); CREATININE SERUM 1.06 MG/DL (0.60-1.30); MAGNESIUM 1.9 MG/DL (1.6-2.4); TOTAL PROTEIN 8.7 GM/DL (6.4-8.2)
[2021-07-29 17:15] VITALS: BP 99/59
[2021-07-29] MEDS ORDERED: FUROSEMIDE 40 MG/4 ML INJ (LASIX) IVP ONE (17:15)
== END 2021-07-29 17:15 | disposition home or self-care (01) ==
LOC: EDUNIT# 15:05 → ER FS 15:08
DX: Z45.018 Encounter for adjustment and management of other part of cardiac pacemaker (principal); R06.02 Shortness of breath; I44.7 Left bundle-branch block, unspecified
CPT/HCPCS: 36415; 71045; 80053; 83735; 83880; 84484; 85025; 85610; 85730; 93005

== ENCOUNTER 2021-08-12 04:31 | Observation (INO) | payer OTHER ==
[~2021-08-12] VITALS: Ht 172.7 cm; Wt 85.8 kg
--- NOTE | 2021-08-12 04:47 | ED General ---
General Stated Complaint: CHF/SWOLLEN ANKLES/TROUBLE BREAHING History of Present Illness Date Seen by Provider: Aug 12, 2021 Time Seen by Provider: 04:46 Initial Comments 41-year-old male with PMH of congestive heart failure with last ECHO in July 2020 showed an EF of 15-20%/ ICD placement in May 2020/past drug abuse/HTN/pericardial effusion, is a prisoner that is brought in by police with complaints of feeling like he is fluid overloaded. Patient states that he is supposed to be getting 200 mg of amiodarone twice daily, but in [facility] he has only been getting 100 mg twice daily for the past 2 weeks. Patient states that his ankles have been swelling up and he feels as if he has too much fluid in his lungs and overall does not feel well. Denies chest pain, nausea and vomiting, palpitations, abdominal pain, dysuria, polyuria, fever. Allergies and Home Medications Allergies Coded Allergies: No Known Drug Allergies (Unverified , 10/05/19) Patient Home Medication List Home Medication List Reviewed: Yes Amiodarone HCl (Amiodarone HCl) 200 Mg Tablet, 400 MG PO Q12H Prescribed by: ALEJA TORRES on 03/13/21 0723 Atorvastatin Calcium (Atorvastatin Calcium) 20 Mg Tablet, 20 MG PO HS Prescribed by: ALEJA TORRES on 03/11/21 1429 Furosemide (Furosemide) 40 Mg Tablet, 40 MG PO DAILY, (Reported) Entered as Reported by: DIVYA SHOOK on 06/04/20 0944 Losartan Potassium (Losartan Potassium) 25 Mg Tablet, 12.5 MG PO DAILY Prescribed by: ALEJA TORRES on 03/11/21 1429 Metoprolol Succinate (Metoprolol Succinate) 25 Mg Tab.er.24h, 12.5 MG PO DAILY Prescribed by: ALEJA TORRES on 03/11/21 1429 Spironolactone (Spironolactone) 25 Mg Tablet, 25 MG PO DAILY Prescribed by: ALEJA TORRES on 03/11/21 1429 Review of Systems Review of Systems Constitutional: no symptoms reported EENTM: no symptoms reported Respiratory: no symptoms reported Cardiovascular: edema Gastrointestinal: no symptoms reported Genitourinary: no symptoms reported Musculoskeletal: no symptoms reported Skin: no symptoms reported Psychiatric/Neurological: No Symptoms Reported Hematologic/Lymphatic: No Symptoms Reported Immunological/Allergic: no symptoms reported Past Rtjfdmd-Ythoab-Paofes Hx Immunizations Up To Date Tetanus Booster (TDap): Unknown First/Initial COVID19 Vaccinat: no Second COVID19 Vaccination Gaudencio: NO Third COVID19 Vaccination Date: no Seasonal Allergies Seasonal Allergies: Yes (USE INHALER) Past Medical History Surgery/Hospitalization HX: icd mdt to left chest Surgeries: Yes (CARDIAC CATH 11/2019--NO INTERVENTION;ICD/DEFIBRILLATOR 06/04/20) Cardiac, Defibrillator Respiratory: Yes Asthma Currently Using CPAP: No Currently Using BIPAP: No Cardiac: Yes (CHF-NEEDS LIFEVEST/REFUSES TO WEAR;NSTEMI;EF10%;LBBB;DEFIBRILLATOR 06/04/20) Cardiomyopathy, Chronic Edema/Swelling, Heart Attack, High Cholesterol, Hypertension Neurological: Yes Stroke Sexually Transmitted Disease: Yes (CHLAMYDIA; GONORRHEA 10/05/19) Genitourinary: No Gastrointestinal: No Musculoskeletal: No Endocrine: No HEENT: No Cancer: No Psychosocial: Yes (SUBSTANCE ABUSE) Integumentary: No Blood Disorders: No Family Medical History Asthma AUNT Hypertension MOTHER No Pertinent Family Hx HAS BEEN OUT OF LONGTERM SINCE 2019 VERY NON-COMPLIANT IN ALL ASPECTS OF CARE NEEDS LIFE VEST-=-REFUSES TO WEAR; NSTEMI; EF 10%; LBBB ICD/DEFIBRILLATOR PLACED BY DR. MAGDALENO 06/04/20 SOCIAL HISTORY: -ETOH-RARELY USES -DRUGS--METH, COCAINE, THC. DENIES IV USE-STATES HE SMOKES THEM -NO TOBACCO PAST SURGICAL HISTORY: -CARDIAC CATH 11/2019--NO INTERVENTION -ICD DEFIBRILLATOR PLACED 06/04/[address] MAGDALENO ECHOCARDIOGRAM 05/17/2020 Physical Exam Vital Signs Vital Signs - First Documented 08/12/21 04:37 Temp 36.3 Pulse 88 Resp 23 B/P (MAP) 142/102 (115) Pulse Ox 98 O2 Delivery Room Air Capillary Refill : Height, Weight, BMI Height: '" Weight: lbs. oz. kg; 24.00 BMI Method: General Appearance: No Apparent Distress HEENT: PERRL/EOMI Neck: Full Range of Motion, Supple Respiratory: Chest Non Tender, Normal Breath Sounds, Rales (mild) Cardiovascular: Regular Rate, Rhythm, Other (bilateral pedal edema) Gastrointestinal: Normal Bowel Sounds, Non Tender, Soft Back: Normal Inspection, No CVA Tenderness Neurologic/Psychiatric: Alert, Oriented x3, No Motor/Sensory Deficits Progress/Results/Core Measures Suspected Sepsis SIRS Temperature: Pulse: Respiratory Rate: Laboratory Tests 08/12/21 04:48: White Blood Count 4.1L Blood Pressure / Mean: Laboratory Tests 08/12/21 04:48: Creatinine 1.20, Platelet Count 176, Total Bilirubin 2.0H Results/Orders Lab Results Laboratory Tests Test 08/12/21 04:48 08/12/21 05:22 Range/Units White Blood Count 4.1 L 4.3-11.0 10^3/uL Red Blood Count 4.69 4.30-5.52 10^6/uL Hemoglobin 12.8 L 13.3-17.7 g/dL Hematocrit 40 40-54 % Mean Corpuscular Volume 86 80-99 fL Mean Corpuscular Hemoglobin 27 25-34 pg Mean Corpuscular Hemoglobin Concent 32 32-36 g/dL Red Cell Distribution Width 18.8 H 10.0-14.5 % Platelet Count 176 130-400 10^3/uL Mean Platelet Volume 10.5 9.0-12.2 fL Immature Granulocyte % (Auto) 0 % Neutrophils (%) (Auto) 60 42-75 % Lymphocytes (%) (Auto) 24 12-44 % Monocytes (%) (Auto) 13 H 0-12 % Eosinophils (%) (Auto) 2 0-10 % Basophils (%) (Auto) 1 0-10 % Neutrophils # (Auto) 2.5 1.8-7.8 10^3/uL Lymphocytes # (Auto) 1.0 1.0-4.0 10^3/uL Monocytes # (Auto) 0.5 0.0-1.0 10^3/uL Eosinophils # (Auto) 0.1 0.0-0.3 10^3/uL Basophils # (Auto) 0.0 0.0-0.1 10^3/uL Immature Granulocyte # (Auto) 0.0 0.0-0.1 10^3/uL D-Dimer 3.55 H 0.00-0.49 UG/ML Sodium Level 134 L 135-145 MMOL/L Potassium Level 3.7 3.6-5.0 MMOL/L Chloride Level 100 98-107 MMOL/L Carbon Dioxide Level 22 21-32 MMOL/L Anion Gap 12 5-14 MMOL/L Blood Urea Nitrogen 11 7-18 MG/DL Creatinine 1.20 0.60-1.30 MG/DL Estimat Glomerular Filtration Rate 77 BUN/Creatinine Ratio 9 Glucose Level 82 70-105 MG/DL Calcium Level 9.0 8.5-10.1 MG/DL Corrected Calcium 9.2 8.5-10.1 MG/DL Total Bilirubin 2.0 H 0.1-1.0 MG/DL Aspartate Amino Transf (AST/SGOT) 43 H 5-34 U/L Alanine Aminotransferase (ALT/SGPT) 22 0-55 U/L Alkaline Phosphatase 180 H 40-136 U/L Troponin I < 0.30 <0.30 NG/ML Pro-B-Type Natriuretic Peptide 1801.0 H <75.0 PG/ML Total Protein 8.5 H 6.4-8.2 GM/DL Albumin 3.7 3.2-4.5 GM/DL Urine Color DARK YELLOW Urine Clarity CLEAR Urine pH 6.0 5-9 Urine Specific [place] >=1.030 1.016-1.022 Urine Protein 2+ H NEGATIVE Urine Glucose (UA) NEGATIVE NEGATIVE Urine Ketones NEGATIVE NEGATIVE Urine Nitrite NEGATIVE NEGATIVE Urine Bilirubin 1+ H NEGATIVE Urine Urobilinogen 2.0 < = 1.0 MG/DL Urine Leukocyte Esterase NEGATIVE NEGATIVE Urine RBC (Auto) TRACE-I H NEGATIVE Urine RBC 2-5 H /HPF Urine WBC 2-5 /HPF Urine Squamous Epithelial Cells 5-10 /HPF Urine Crystals NONE /LPF Urine Bacteria FEW H /HPF Urine Casts PRESENT /LPF Urine Hyaline Casts 2-5 H /LPF Urine Mucus LARGE H /LPF Urine Trichomonas MODERATE H /HPF Urine Culture Indicated YES My Orders Orders - MELLO CONLEY MD Cbc With Automated Diff (08/12/21 04:59) Comprehensive Metabolic Panel (08/12/21 04:59) Fibrin Degradation Products (08/12/21 04:59) Ua Culture If Indicated (08/12/21 04:59) Probnp Fs (08/12/21 04:59) Troponin I Fs (08/12/21 04:59) Chest 1 View Ap/Pa Only (08/12/21 04:59) Urine Culture (08/12/21 05:22) Furosemide Injection (Lasix Injection) (08/12/21 06:00) Ct Angio Chest W (08/12/21 05:49) Iohexol Injection (Omnipaque 350 Mg/Ml 1 (08/12/21 06:00) Received Contrast (Hold Metformin- Contr (08/12/21 06:00) Ns (Ivpb) (Sodium Chloride 0.9% Ivpb Bag (08/12/21 06:00) Medications Given in ED Current Medications Medications Dose Ordered Sig/Nelly Route Start Time Stop Time Status Last Admin Dose Admin Furosemide 60 mg ONCE ONCE IVP 08/12/21 06:00 08/12/21 06:01 DC 08/12/21 06:02 60 MG Iohexol 125 ml ONCE ONCE IV 08/12/21 06:00 08/12/21 06:01 DC 08/12/21 06:00 125 ML Sodium Chloride 100 ml ONCE ONCE IV 08/12/21 06:00 08/12/21 06:01 DC 08/12/21 06:00 100 ML Vital Signs/I&O 08/12/21 04:37 Temp 36.3 Pulse 88 Resp 23 B/P (MAP) 142/102 (115) Pulse Ox 98 O2 Delivery Room Air Capillary Refill : Progress Note : Progress Note 1. ACUTE CHF EXACERBATION: - CXR: cardiomegally - pro-BNP: 1,801 - CBC/CMP: unremarkable - Troponin undetected - Lasix 60mg iv STAT - Pt has not been getting the correct dose of Amiodarone at [facility] ( see H &P). - Will admit to Observation unit. Discussed with Dr Anton, acceptedd for admissi on. 2. ELEVATED D-DIMER: - D-dimer is 3.55 - CTA CHEST: no PE Diagnostic Imaging Diagonstic Imaging: Xray, CT Plain Films/CT/US/NM/MRI: chest Comments [facility]. [place], [place] NAME: [facility] REC#: [id number] PT STATUS: REG ER : 1980 PHYSICIAN: MELLO CONLEY MD ADMIT DATE: 08/12/21/ER FS Signed Date of Exam:08/12/21 CHEST 1 VIEW AP/PA ONLY INDICATION: Fluid overload AP view of the chest is obtained with comparison made to the study of 07/29/2021. There is continued enlargement of the heart with internal defibrillator device present. There is no evidence of pneumothorax. No consolidation or significant pleural fluid is seen. IMPRESSION: Continued cardiac enlargement. Pericardial effusion is not excluded. Otherwise, no congestive heart failure or overt edema is seen. Dictated by: Dictated on workstation # [id number] Dict: 08/12/2132 Trans: 08/12/2137 JEMAL [id number] Interpreted by: MIMA WASHINGTON MD Electronically signed by: MIMA WASHINGTON MD 08/12/2137 [facility] [place] [place] NAME: [facility] REC#: [id number] PT STATUS: REG ER : 1980 PHYSICIAN: MELLO CONLEY MD ADMIT DATE: 08/12/21/ER FS Draft Date of Exam:08/12/21 CT ANGIO CHEST W PROCEDURE: CT angiography of the chest with contrast. TECHNIQUE: Multiple contiguous axial images were obtained through the chest after uneventful bolus administration of intravenous contrast. 3D reconstructed CTA MIP acquisitions were also performed. Auto Exposure Controls were utilized during the CT exam to meet ALARA standards for radiation dose reduction. INDICATION: Elevated D-dimer Similar to the previous study, there is generalized cardiomegaly. There may be small amount of pericardial fluid. There is good opacification of pulmonary arteries without intraluminal filling defect identified. Thoracic aorta is of normal caliber. Lungs are clear apart from minimal left basilar atelectasis. There is no consolidation or significant pleural fluid. IMPRESSION: No CTA evidence of pulmonary embolism. Mild left basilar atelectasis is noted with improvement in aeration when compared to previous study. Cardiomegaly persists with possible mild pericardial fluid. Dictated on workstation # [id number] Dict: 08/12/21618 Trans: 08/12/21637 CVB [id number] Interpreted by: MIMA WASHINGTON MD Electronically signed by: Departure Impression Primary Impression: Acute exacerbation of CHF (congestive heart failure) Qualified Codes: I50.9 - Heart failure, unspecified Disposition: 30 STILL A PATIENT Condition: Stable Admissions Decision to Admit/Date: Aug 12, 2021 Time/Decision to Admit Time: 06:30 Transfer Transfer Reason: Exceeds level of care Time Spoke to Accepting Phy: 06:50 Transfer Progress Notes Accepted by Dr Anton Transfer Facility: [facility] Method of Transfer: EMS Departure-Patient Inst. Referrals: AMARJIT CONROY MD (PCP/Family) Primary Care Physician MELLO CONLEY MD Aug 12, 2021 04:46
[2021-08-12 05:13] LABS: BASOPHILS % (AUTO) 1 % (0-10); EOSINOPHILS # (AUTO) 0.1 10^3/uL (0.0-0.3); EOSINOPHILS % (AUTO) 2 % (0-10); HEMATOCRIT 40 % (40-54); HEMOGLOBIN 12.8 g/dL (13.3-17.7); LYMPHOCYTES % (AUTO) 24 % (12-44); MEAN CORPUSCULAR HEMOGLOBIN 27 pg (25-34); MEAN CORPUSCULAR HGB CONC 32 g/dL (32-36); MEAN CORPUSCULAR VOLUME 86 fL (80-99); MEAN PLATELET VOLUME 10.5 fL (9.0-12.2); MONOCYTES # (AUTO) 0.5 10^3/uL (0.0-1.0); MONOCYTES % (AUTO) 13 % (0-12); NEUTROPHILS # (AUTO) 2.5 10^3/uL (1.8-7.8); NEUTROPHILS % (AUTO) 60 % (42-75); PLATELET COUNT 176 10^3/uL (130-400); WHITE BLOOD COUNT 4.1 10^3/uL (4.3-11.0)
[2021-08-12 05:19] LABS: CHLORIDE 100 MMOL/L (98-107); POTASSIUM 3.7 MMOL/L (3.6-5.0); SODIUM 134 MMOL/L (135-145)
[2021-08-12 05:20] LABS: ALANINE AMINOTRANSFERASE 22 U/L (0-55); ALBUMIN 3.7 GM/DL (3.2-4.5); ALKALINE PHOSPHATASE 180 U/L (40-136); BUN/CREATININE RATIO 9; CARBON DIOXIDE 22 MMOL/L (21-32); GFR ESTIMATED 77; GLUCOSE 82 MG/DL (70-105); TOTAL PROTEIN 8.5 GM/DL (6.4-8.2)
[2021-08-12 05:27] LABS: CLARITY,URINE CLEAR; GLUCOSE, URINE (UA) NEGATIVE (NEGATIVE); KETONES,URINE NEGATIVE (NEGATIVE); LEUKOCYTE ESTERASE ,URINE NEGATIVE (NEGATIVE); NITRITE,URINE NEGATIVE (NEGATIVE); PROTEIN,URINE 2+ (NEGATIVE)
--- NOTE | 2021-08-12 05:34 | Diagnostic Imaging Report ---
INDICATION: Fluid overload AP view of the chest is obtained with comparison made to the study of 07/29/2021. There is continued enlargement of the heart with internal defibrillator device present. There is no evidence of pneumothorax. No consolidation or significant pleural fluid is seen. IMPRESSION: Continued cardiac enlargement. Pericardial effusion is not excluded. Otherwise, no congestive heart failure or overt edema is seen. Dictated by: Dictated on workstation # [id number]
[2021-08-12 05:37] LABS: COLOR,URINE DARK YELLOW
[2021-08-12 05:38] LABS: BACTERIA,URINE FEW /HPF
[2021-08-12 05:39] LABS: TRICHOMONAS,URINE MODERATE /HPF
[2021-08-12 05:40] LABS: BILIRUBIN,URINE 1+ (NEGATIVE)
[2021-08-12] MEDS ORDERED: NS 100 ML (IVPB) BAG IV ONE (06:00)
[2021-08-12] MEDS ORDERED: FUROSEMIDE 40 MG/4 ML INJ (LASIX) IVP ONE (06:00)
[2021-08-12] MEDS ORDERED: IOHEXOL 350 MG/ML 150 ML (OMNIPAQUE 350) VIAL IV ONE (06:00)
[2021-08-12] MEDS ORDERED: HOLD METFORMIN - RECEIVED CONTRAST 20 ML VIAL IV SCH (06:00)
--- NOTE | 2021-08-12 06:39 | Diagnostic Imaging Report ---
PROCEDURE: CT angiography of the chest with contrast. TECHNIQUE: Multiple contiguous axial images were obtained through the chest after uneventful bolus administration of intravenous contrast. 3D reconstructed CTA MIP acquisitions were also performed. Auto Exposure Controls were utilized during the CT exam to meet ALARA standards for radiation dose reduction. INDICATION: Elevated D-dimer Similar to the previous study, there is generalized cardiomegaly. There may be small amount of pericardial fluid. There is good opacification of pulmonary arteries without intraluminal filling defect identified. Thoracic aorta is of normal caliber. Lungs are clear apart from minimal left basilar atelectasis. There is no consolidation or significant pleural fluid. IMPRESSION: No CTA evidence of pulmonary embolism. Mild left basilar atelectasis is noted with improvement in aeration when compared to previous study. Cardiomegaly persists with possible mild pericardial fluid. Dictated by: Dictated on workstation # [id number]
[2021-08-12 08:37] VITALS: BP 116/80
[2021-08-12] MEDS ORDERED: FUROSEMIDE 40 MG/4 ML INJ (LASIX) IV SCH ×2 (09:00→17:00)
[2021-08-12] MEDS ORDERED: ASPIRIN 81 MG CHEW (CHILDREN'S ASA) PO SCH (09:00)
[2021-08-12 11:03] VITALS: BP 142/102
--- NOTE | 2021-08-12 11:07 | Consultation-Cardiology ---
HPI-Cardiology Cardiology Consultation Date of Consultation 08/12/21 Date of Admission Time Seen by Provider: 11:02 Indication: Shortness of breath HPI 41 years old gentleman with history of congestive heart failure, has been doing well until recently started to have worsening shortness of breath and pedal edema. Came into the emergency room and he was noted to be in congestive heart failure. Patient was started on diuretics. Appears to be responding well to diuretics. On my evaluation he was sitting in bed comfortable, not using any oxygen, denied any chest pain, no shortness of breath. No palpitation, no significant pedal edema was noted. Home Medications & Allergies Allergies: Coded Allergies: No Known Drug Allergies (Unverified , 10/05/19) Home Medication List Reviewed: Yes NAC-Pvtbyl-Hfkhmf Hx Patient Social History Employed/Student: unemployed Drug of Choice: HX OF METH USE NONE SINCE NOV 2019 2nd Hand Smoke Exposure: No Recent Hopitalizations: No Alcohol Use?: No Immunizations Up To Date Tetanus Booster (TDap): Unknown Date of Pneumonia Vaccine: Dec 07, 2018 Date of Influenza Vaccine: Dec 06, 2019 Past Medical History Discussed below Family Medical History Significant Family History: No Pertinent Family Hx Family History: Asthma AUNT Hypertension MOTHER Review of Systems-General Review of Systems Constitutional: no symptoms reported, see HPI, weakness EENTM: see HPI, no symptoms reported Respiratory: see HPI; No cough; dyspnea on exertion; No hemoptysis; orthopnea; No phlegm, No short of breath, No stridor, No wheezing, No other Cardiovascular: see HPI; No chest pain; edema; No Hx of Intervention, No palpitations, No syncope, No vascular heart diseas, No other Gastrointestinal: no symptoms reported, see HPI Genitourinary: no symptoms reported, see HPI Musculoskeletal: no symptoms reported, see HPI Skin: no symptoms reported, see HPI Psychiatric/Neurological: No Symptoms Reported, See HPI Reviewed Test Results Reviewed Test Results Lab Laboratory Tests Test 08/12/21 04:48 08/12/21 05:22 Range/Units White Blood Count 4.1 L 4.3-11.0 10^3/uL Red Blood Count 4.69 4.30-5.52 10^6/uL Hemoglobin 12.8 L 13.3-17.7 g/dL Hematocrit 40 40-54 % Mean Corpuscular Volume 86 80-99 fL Mean Corpuscular Hemoglobin 27 25-34 pg Mean Corpuscular Hemoglobin Concent 32 32-36 g/dL Red Cell Distribution Width 18.8 H 10.0-14.5 % Platelet Count 176 130-400 10^3/uL Mean Platelet Volume 10.5 9.0-12.2 fL Immature Granulocyte % (Auto) 0 % Neutrophils (%) (Auto) 60 42-75 % Lymphocytes (%) (Auto) 24 12-44 % Monocytes (%) (Auto) 13 H 0-12 % Eosinophils (%) (Auto) 2 0-10 % Basophils (%) (Auto) 1 0-10 % Neutrophils # (Auto) 2.5 1.8-7.8 10^3/uL Lymphocytes # (Auto) 1.0 1.0-4.0 10^3/uL Monocytes # (Auto) 0.5 0.0-1.0 10^3/uL Eosinophils # (Auto) 0.1 0.0-0.3 10^3/uL Basophils # (Auto) 0.0 0.0-0.1 10^3/uL Immature Granulocyte # (Auto) 0.0 0.0-0.1 10^3/uL D-Dimer 3.55 H 0.00-0.49 UG/ML Sodium Level 134 L 135-145 MMOL/L Potassium Level 3.7 3.6-5.0 MMOL/L Chloride Level 100 98-107 MMOL/L Carbon Dioxide Level 22 21-32 MMOL/L Anion Gap 12 5-14 MMOL/L Blood Urea Nitrogen 11 7-18 MG/DL Creatinine 1.20 0.60-1.30 MG/DL Estimat Glomerular Filtration Rate 77 BUN/Creatinine Ratio 9 Glucose Level 82 70-105 MG/DL Calcium Level 9.0 8.5-10.1 MG/DL Corrected Calcium 9.2 8.5-10.1 MG/DL Total Bilirubin 2.0 H 0.1-1.0 MG/DL Aspartate Amino Transf (AST/SGOT) 43 H 5-34 U/L Alanine Aminotransferase (ALT/SGPT) 22 0-55 U/L Alkaline Phosphatase 180 H 40-136 U/L Troponin I < 0.30 <0.30 NG/ML Pro-B-Type Natriuretic Peptide 1801.0 H <75.0 PG/ML Total Protein 8.5 H 6.4-8.2 GM/DL Albumin 3.7 3.2-4.5 GM/DL Urine Color DARK YELLOW Urine Clarity CLEAR Urine pH 6.0 5-9 Urine Specific [place] >=1.030 1.016-1.022 Urine Protein 2+ H NEGATIVE Urine Glucose (UA) NEGATIVE NEGATIVE Urine Ketones NEGATIVE NEGATIVE Urine Nitrite NEGATIVE NEGATIVE Urine Bilirubin 1+ H NEGATIVE Urine Urobilinogen 2.0 < = 1.0 MG/DL Urine Leukocyte Esterase NEGATIVE NEGATIVE Urine RBC (Auto) TRACE-I H NEGATIVE Urine RBC 2-5 H /HPF Urine WBC 2-5 /HPF Urine Squamous Epithelial Cells 5-10 /HPF Urine Crystals NONE /LPF Urine Bacteria FEW H /HPF Urine Casts PRESENT /LPF Urine Hyaline Casts 2-5 H /LPF Urine Mucus LARGE H /LPF Urine Trichomonas MODERATE H /HPF Urine Culture Indicated YES Physical Exam Physical Exam Vital Signs Vital Signs - First Documented 08/12/21 04:37 Temp 36.3 Pulse 88 Resp 23 B/P (MAP) 142/102 (115) Pulse Ox 98 O2 Delivery Room Air Capillary Refill : Less Than 3 Seconds Height, Weight, BMI Height: '" Weight: lbs. oz. kg; 28.76 BMI Method: General Appearance: No Apparent Distress Eyes: Bilateral Eye Normal Inspection, Bilateral Eye PERRL, Bilateral Eye EOMI HEENT: PERRL/EOMI Neck: Full Range of Motion, Supple Respiratory: Chest Non Tender, Normal Breath Sounds, Rales (mild) Cardiovascular: Regular Rate, Rhythm, Other (bilateral pedal edema) Gastrointestinal: Normal Bowel Sounds, Non Tender, Soft Back: Normal Inspection, No CVA Tenderness Extremity: Normal Capillary Refill, Normal Inspection, Normal Range of Motion, Non Tender, No Calf Tenderness, No Pedal Edema Neurologic/Psychiatric: Alert, Oriented x3, No Motor/Sensory Deficits Skin: Normal Color, Warm/Dry Lymphatic: No Adenopathy A/P-Cardiology Admission Diagnosis Shortness of breath Congestive heart failure, acute on chronic left ventricular systolic dysfunction Hypertension Illicit drug use Assessment/Plan Shortness of breath, orthopnea, worsening heart failure. Responded well to diuretics. Discussed compliance with medication and taking medication as prescribed. Congestive heart failure, acute on chronic left ventricular systolic dysfunction, nonischemic cardiomyopathy with ejection fraction 15 to 20%. Resume beta-blockers and ARB, continue on diuretics and amiodarone History of single-chamber ICD implanted in May 2020 for primary prevention. Continue to monitor Hypertension, controlled, restart home medication monitor Coronary artery disease, cardiac catheterization was done in November 2019 showing normal coronaries with no significant obstructive disease. History of illicit drug use History of noncompliance with medication. FLORA MAGDALENO MD Aug 12, 2021 11:07
[2021-08-12] MEDS ORDERED: RT-ALBUTEROL SULF 2.5 MG/3 ML PRE-MIX VIAL INH PRN (11:15)
[2021-08-12 11:43] VITALS: BP 112/78
[2021-08-12] MEDS ORDERED: FUROSEMIDE 40 MG/4 ML INJ (LASIX) IVP NR (11:45)
--- NOTE | 2021-08-12 13:26 | Short Stay Summary ---
HPI History of Present Illness: 41 yo M with known systolic CHF with ICD in place that presented to ER with police with complaints of fluid overload. Patient is currently at [facility]. He states that he was having some shortness of breath and ankle swelling. He does not have any baseline oxygen requirement. States that he has not been getting all of his medications. Denies any chest pain or palpitations Source: patient Exam Limitations: no limitations Date seen by provider: Aug 12, 2021 Time Seen by Provider: 11:15 Attending Physician Ricci Bernard MD PCP Admitting Physician: Tabitha Anton MD Attending Physician: Tabitha Anton MD Consult Date of Admission Aug 12, 2021 at 08:30 Home Medications Home Medications Reviewed patient Home Medication Reconciliation performed by pharmacy medication reconciliations compressor technician and/or nursing. Patients Allergies have been reviewed. Allergies Coded Allergies: No Known Drug Allergies (Unverified , 10/05/19) HSO-Nivugz-Brsved Hx Patient Social History Employed/Student: unemployed Drug of Choice: HX OF METH USE NONE SINCE NOV 2019 2nd Hand Smoke Exposure: No Recent Hopitalizations: No Alcohol Use?: No Have you traveled recently?: No Immunizations Up To Date Tetanus Booster (TDap): Unknown Influenza Vaccine Up-to-Date: No; Not Current First/Initial COVID19 Vaccinat: no Second COVID19 Vaccination Gaudencio: NO Third COVID19 Vaccination Date: no Past Medical History Systolic CHF s/p ICD Drug dependent Family Medical History Significant Family History: No Pertinent Family Hx Other Significan Family Hx: HAS BEEN OUT OF LONG-TERM SINCE 2018 VERY NON-COMPLIANT IN ALL ASPECTS OF CARE NEEDS LIFE VEST-=-REFUSES TO WEAR; NSTEMI; EF 10%; LBBB ICD/DEFIBRILLATOR PLACED BY DR. MAGDALENO 06/04/20 SOCIAL HISTORY: -ETOH-RARELY USES -DRUGS--METH, COCAINE, THC. DENIES IV USE-STATES HE SMOKES THEM -NO TOBACCO PAST SURGICAL HISTORY: -CARDIAC CATH 11/2019--NO INTERVENTION -ICD DEFIBRILLATOR PLACED 06/04/[address] MAGDALENO ECHOCARDIOGRAM 05/17/2020 Family History: Asthma AUNT Hypertension MOTHER Review of Systems (CHC) Constitutional: No chills, No fever; malaise, weakness EENTM: no symptoms reported; No mouth pain, No nose congestion Respiratory: No cough; dyspnea on exertion; No orthopnea Cardiovascular: No chest pain; edema; No palpitations Gastrointestinal: no symptoms reported; No abdominal pain, No constipation, No diarrhea, No nausea, No vomiting Genitourinary: No dysuria; frequency; No hematuria Musculoskeletal: no symptoms reported Skin: no symptoms reported Psychiatric/Neurological: No Symptoms Reported Reviewed Test Results Reviewed Test Results Lab Laboratory Tests Test 08/12/21 04:48 08/12/21 05:22 Range/Units White Blood Count 4.1 L 4.3-11.0 10^3/uL Red Blood Count 4.69 4.30-5.52 10^6/uL Hemoglobin 12.8 L 13.3-17.7 g/dL Hematocrit 40 40-54 % Mean Corpuscular Volume 86 80-99 fL Mean Corpuscular Hemoglobin 27 25-34 pg Mean Corpuscular Hemoglobin Concent 32 32-36 g/dL Red Cell Distribution Width 18.8 H 10.0-14.5 % Platelet Count 176 130-400 10^3/uL Mean Platelet Volume 10.5 9.0-12.2 fL Immature Granulocyte % (Auto) 0 % Neutrophils (%) (Auto) 60 42-75 % Lymphocytes (%) (Auto) 24 12-44 % Monocytes (%) (Auto) 13 H 0-12 % Eosinophils (%) (Auto) 2 0-10 % Basophils (%) (Auto) 1 0-10 % Neutrophils # (Auto) 2.5 1.8-7.8 10^3/uL Lymphocytes # (Auto) 1.0 1.0-4.0 10^3/uL Monocytes # (Auto) 0.5 0.0-1.0 10^3/uL Eosinophils # (Auto) 0.1 0.0-0.3 10^3/uL Basophils # (Auto) 0.0 0.0-0.1 10^3/uL Immature Granulocyte # (Auto) 0.0 0.0-0.1 10^3/uL D-Dimer 3.55 H 0.00-0.49 UG/ML Sodium Level 134 L 135-145 MMOL/L Potassium Level 3.7 3.6-5.0 MMOL/L Chloride Level 100 98-107 MMOL/L Carbon Dioxide Level 22 21-32 MMOL/L Anion Gap 12 5-14 MMOL/L Blood Urea Nitrogen 11 7-18 MG/DL Creatinine 1.20 0.60-1.30 MG/DL Estimat Glomerular Filtration Rate 77 BUN/Creatinine Ratio 9 Glucose Level 82 70-105 MG/DL Calcium Level 9.0 8.5-10.1 MG/DL Corrected Calcium 9.2 8.5-10.1 MG/DL Total Bilirubin 2.0 H 0.1-1.0 MG/DL Aspartate Amino Transf (AST/SGOT) 43 H 5-34 U/L Alanine Aminotransferase (ALT/SGPT) 22 0-55 U/L Alkaline Phosphatase 180 H 40-136 U/L Troponin I < 0.30 <0.30 NG/ML Pro-B-Type Natriuretic Peptide 1801.0 H <75.0 PG/ML Total Protein 8.5 H 6.4-8.2 GM/DL Albumin 3.7 3.2-4.5 GM/DL Urine Color DARK YELLOW Urine Clarity CLEAR Urine pH 6.0 5-9 Urine Specific [place] >=1.030 1.016-1.022 Urine Protein 2+ H NEGATIVE Urine Glucose (UA) NEGATIVE NEGATIVE Urine Ketones NEGATIVE NEGATIVE Urine Nitrite NEGATIVE NEGATIVE Urine Bilirubin 1+ H NEGATIVE Urine Urobilinogen 2.0 < = 1.0 MG/DL Urine Leukocyte Esterase NEGATIVE NEGATIVE Urine RBC (Auto) TRACE-I H NEGATIVE Urine RBC 2-5 H /HPF Urine WBC 2-5 /HPF Urine Squamous Epithelial Cells 5-10 /HPF Urine Crystals NONE /LPF Urine Bacteria FEW H /HPF Urine Casts PRESENT /LPF Urine Hyaline Casts 2-5 H /LPF Urine Mucus LARGE H /LPF Urine Trichomonas MODERATE H /HPF Urine Culture Indicated YES Physical Exam-(CHC) Physical Exam Vital Signs VS - Last 72 Hours, by Label 08/12/21 08/12/21 08/12/21 08/12/21 04:37 07:41 08:37 10:35 Temp 36.3 36.7 Pulse 88 93 91 Resp 23 16 17 B/P (MAP) 142/102 (115) 131/77 116/80 (92) Pulse Ox 98 96 99 O2 Delivery Room Air Room Air Room Air Room Air 08/12/21 08/12/21 08/12/21 11:03 11:15 11:43 Temp 36.3 36.6 Pulse 88 84 83 Resp 18 B/P (MAP) 112/78 (89) Pulse Ox 98 96 O2 Delivery Room Air FiO2 21 Capillary Refill : Less Than 3 Seconds General Appearance: WD/WN, no apparent distress HEENT: PERRL/EOMI Neck: non-tender, full range of motion Respiratory: chest non-tender, lungs clear, no respiratory distress, no accessory muscle use, wheezing Cardiovascular: normal peripheral pulses, regular rate, rhythm, no murmur Gastrointestinal: normal bowel sounds, non tender, soft Extremities: normal range of motion, no calf tenderness, normal capillary refill, pedal edema (2+ bilaterally) Neurologic/Psychiatric: complaint adjuster II-XII nml as tested, alert, normal mood/affect, oriented x 3 Skin: normal color, warm/dry Lymphatic: no adenopathy Short Stay Diagnosis Discharge Diagnosis-Short Stay Admission Diagnosis See problem list Final Discharge Diagnosis See problem list Conclusion Plan See problem list Patient responded well to diuretics, will discharge back in custody of corrections. Assessment/Plan Assessment/Plan Admission Status: Observation (1) Acute on chronic HFrEF (heart failure with reduced ejection fraction) Status: Acute Assessment & Plan: - Cardiology consulted and managing, appreciate recommendations, Patient has ICD, refuses lifevest (2) Non-ischemic cardiomyopathy Status: Chronic (3) Mixed hyperlipidemia Status: Chronic (4) Non-compliance Status: Acute (5) History of methamphetamine use Status: Acute Assessment & Plan: - Currently in [facility], states that its been a while since his last use TABITHA ANTON MD Aug 12, 2021 13:26
[2021-08-12] MEDS ORDERED: metroNIDAZOLE 500 MG (FLAGYL) TAB PO NR (13:30)
[2021-08-12] MEDS ORDERED: AMIO200T65 PO (13:32)
[2021-08-12] MEDS ORDERED: CARV6.252 PO (13:32)
[2021-08-12] MEDS ORDERED: ASPI81TA64 PO (13:32)
[2021-08-12] MEDS ORDERED: LOSA50TA63 PO (13:32)
--- NOTE | 2021-08-12 13:33 | Discharge Summary ---
Discharge [facility] Reconcile Patient Problems Problems Reviewed?: Yes Discharge Medications New, Converted or Re-Newed RX: Transmitted to Pharmacy New Medications: Amiodarone HCl (Amiodarone HCl) 200 Mg Tablet 200 MG PO DAILY, #30 TAB Aspirin (Children's Aspirin) 81 Mg Tab.chew 81 MG PO DAILY@0900, #30 TAB Carvedilol (Carvedilol) 6.25 Mg Tablet 6.25 MG PO BID for 15 Days, #30 TAB Losartan Potassium (Losartan Potassium) 50 Mg Tablet 50 MG PO DAILY, #30 TAB Continued Medications: Atorvastatin Calcium (Atorvastatin Calcium) 20 Mg Tablet 20 MG PO HS, #30 TAB 0 Refills Furosemide (Furosemide) 40 Mg Tablet 40 MG PO DAILY, TAB Spironolactone (Spironolactone) 25 Mg Tablet 25 MG PO DAILY, #30 TAB 0 Refills Discontinued Medications: Amiodarone HCl (Amiodarone HCl) 200 Mg Tablet 400 MG PO Q12H for 30 Days, #120 TAB 0 Refills Losartan Potassium (Losartan Potassium) 25 Mg Tablet 12.5 MG PO DAILY, #30 TAB 0 Refills Metoprolol Succinate (Metoprolol Succinate) 25 Mg Tab.er.24h 12.5 MG PO DAILY, #30 TAB 0 Refills Patient Instructions Goal/Follow Up Appt: Retirement Patient, will need to set up f.u appt 1-2 weeks with PCP Activity & Diet Discharge Diet: Cardiac Diet RITA VO MD Aug 12, 2021 13:33
[2021-08-13] MEDS ORDERED: SPIRONOLACTONE 25 MG (ALDACTONE) TAB PO SCH (09:00)
[2021-08-13] MEDS ORDERED: LOSARTAN 50 MG (COZAAR) TAB PO SCH (09:00)
[2021-08-13] MEDS ORDERED: AMIODARONE 200 MG (CORDARONE) TAB PO SCH (09:00)
== END 2021-08-12 15:00 ==
LOC: EDUNIT# 04:31 → ER FS 04:35 → 4TH 08:30
PROVIDERS: ADMIT Family Medicine; ATTEND Family Medicine
DX: I11.0 Hypertensive heart disease with heart failure (principal); I50.23 Acute on chronic systolic (congestive) heart failure; I42.8 Other cardiomyopathies; E78.2 Mixed hyperlipidemia; F15.90 Other stimulant use, unspecified, uncomplicated; Z91.19 Patient's noncompliance with other medical treatment and regimen; Z95.810 Presence of automatic (implantable) cardiac defibrillator; Z79.899 Other long term (current) drug therapy
CPT/HCPCS: 36415; 71045; 71275; 80053; 81000; 83880; 84484; 85025; 85379; 87088; 93306; 96376; G0378; Q9967

== ENCOUNTER 2021-08-20 15:38 | Emergency (ER) | payer OTHER ==
[~2021-08-20] VITALS: Ht 172.7 cm; Wt 77.1 kg
[~2021-08-20 15:38] MED LIST changes: +ASPI81TA64 PO; +CARV6.252 PO; +LOSA50TA63 PO
[2021-08-20 16:06] LABS: BASOPHILS % (AUTO) 1 % (0-10); EOSINOPHILS # (AUTO) 0.1 10^3/uL (0.0-0.3); EOSINOPHILS % (AUTO) 4 % (0-10); HEMATOCRIT 37 % (40-54); LYMPHOCYTES # (AUTO) 0.6 10^3/uL (1.0-4.0); LYMPHOCYTES % (AUTO) 16 % (12-44); MEAN CORPUSCULAR HEMOGLOBIN 27 pg (25-34); MEAN CORPUSCULAR HGB CONC 32 g/dL (32-36); MEAN CORPUSCULAR VOLUME 85 fL (80-99); MEAN PLATELET VOLUME 9.8 fL (9.0-12.2); MONOCYTES # (AUTO) 0.4 10^3/uL (0.0-1.0); MONOCYTES % (AUTO) 13 % (0-12); NEUTROPHILS # (AUTO) 2.3 10^3/uL (1.8-7.8); NEUTROPHILS % (AUTO) 66 % (42-75); PLATELET COUNT 137 10^3/uL (130-400); WHITE BLOOD COUNT 3.5 10^3/uL (4.3-11.0)
--- NOTE | 2021-08-20 16:24 | Diagnostic Imaging Report ---
CLINICAL INDICATION: Patient with shortness of breath. EXAM: Chest x-ray, PA and lateral views. COMPARISON: Chest x-ray dated 08/12/2021. FINDINGS: Lungs/pleura: Lungs are clear. There is no pneumothorax. There is no pleural effusion. Mediastinum: Unremarkable. Pulmonary vasculature: Stable marked enlargement of the heart. Pericardial effusion cannot be excluded. Pacemaker/IACD again seen in stable position. Heart: Unremarkable. Bones/extrathoracic soft tissue: Unremarkable. IMPRESSION: 1: Stable chest x-ray exam with enlargement of the cardiac silhouette. Pericardial effusion should be excluded. There is no pulmonary vascular congestion. 2: There is no lung infiltrate. Dictated by: Dictated on workstation # [id number]
[2021-08-20 16:29] LABS: POTASSIUM 3.7 MMOL/L (3.6-5.0)
[2021-08-20 16:30] LABS: CALCIUM 7.9 MG/DL (8.5-10.1)
[2021-08-20 16:32] LABS: TOTAL PROTEIN 7.1 GM/DL (6.4-8.2)
[2021-08-20 16:34] LABS: BILIRUBIN,TOTAL 2.2 MG/DL (0.1-1.0)
[2021-08-20 16:35] LABS: CREATININE SERUM 1.16 MG/DL (0.60-1.30)
[2021-08-20 16:38] LABS: MAGNESIUM 1.9 MG/DL (1.6-2.4)
[2021-08-20 16:40] LABS: INR 1.5 (0.8-1.4); PROTHROMBIN TIME PATIENT 18.2 SEC (12.2-14.7)
[2021-08-20 16:42] LABS: AMPHETAMINE SCREEN, URINE NEGATIVE (NEGATIVE); BARBITURATE SCREEN URINE NEGATIVE (NEGATIVE); BENZODIAZEPINES SCREEN URINE NEGATIVE (NEGATIVE); CANNABINOID SCREEN, URINE NEGATIVE (NEGATIVE); COCAINE SCREEN URINE NEGATIVE (NEGATIVE); METHADONE STAT NEGATIVE (NEGATIVE); OPIATE SCREEN URINE NEGATIVE (NEGATIVE); OXYCODONE STAT NEGATIVE (NEGATIVE); PROPOXYPHENE STAT NEGATIVE (NEGATIVE); TRICYCLIC ANTIDEPRESSANTS SCRE NEGATIVE (NEGATIVE)
--- NOTE | 2021-08-20 17:34 | ED Cardiac General ---
History of Present Illness General Chief Complaint: Respiratory Problems Stated Complaint: HX CHF/SOB Nursing Triage Note: pt ambulatory to room. pt states he has felt sob since he was seen here last thursday. pt states he has a hx of chf and feels like he needs the fluid drained off his lungs. pt states he feels swollen in his back, stomach, legs and feet which makes him sob. pt denies any pain or other complaints Source: patient, old records Exam Limitations: no limitations (EMERY CUBA MD) History of Present Illness Date Seen by Provider: Aug 20, 2021 Time Seen by Provider: 15:48 Initial Comments This 41-year-old gentleman with severe congestive heart failure presents to the emergency room with complaints of worsening edema and shortness of breath. He is concerned about developing a pleural effusion as he has required thoracentesis in the past. He had a recent admission to the hospital for exacerbation of CHF and was discharged on August 12. He also has a history of substance abuse but reports no illicit substance use since being discharged from the hospital. He denies any chest pain. He had clean coronary arteries on cardiac cath previously. (EMERY CUBA MD) Allergies and Home Medications Allergies Coded Allergies: No Known Drug Allergies (Unverified , 10/05/19) Patient Home Medication List Home Medication List Reviewed: Yes (EMERY CUBA MD) Amiodarone HCl (Amiodarone HCl) 200 Mg Tablet, 200 MG PO DAILY Prescribed by: RITA VO on 08/12/21 1332 Aspirin (Children's Aspirin) 81 Mg Tab.chew, 81 MG PO DAILY@0900 Prescribed by: RITA VO on 08/12/21 1332 Atorvastatin Calcium (Atorvastatin Calcium) 20 Mg Tablet, 20 MG PO HS Prescribed by: ALEJA TORRES on 03/11/21 1429 Carvedilol (Carvedilol) 6.25 Mg Tablet, 6.25 MG PO BID Prescribed by: RITA VO on 08/12/21 1332 Furosemide (Furosemide) 40 Mg Tablet, 40 MG PO DAILY, (Reported) Entered as Reported by: DIVYA SHOOK on 06/04/20 0944 Losartan Potassium (Losartan Potassium) 50 Mg Tablet, 50 MG PO DAILY Prescribed by: RITA VO on 08/12/21 1332 Spironolactone (Spironolactone) 25 Mg Tablet, 25 MG PO DAILY Prescribed by: ALEJA TORRES on 03/11/21 1429 Review of Systems Review of Systems Constitutional: no symptoms reported EENTM: No Symptoms Reported Respiratory: See HPI Cardiovascular: See HPI Gastrointestinal: No Symptoms Reported Genitourinary: No Symptoms Reported Musculoskeletal: no symptoms reported Skin: no symptoms reported Psychiatric/Neurological: No Symptoms Reported Endocrine: No Symptoms Reported (EMERY CUBA MD) Past Vgkrdeu-Avsdgx-Fvfwjy Hx Patient Social History Tobacco Use?: No Use of E-Cig and/or Vaping dev: No Substance use?: Yes Substance type: Methamphetamine, Marijuana Substance frequency: Once in a while Alcohol Use?: No (EMERY CUBA MD) Immunizations Up To Date Tetanus Booster (TDap): Unknown Influenza Vaccine Up-to-Date: No; Not Current First/Initial COVID19 Vaccinat: no Second COVID19 Vaccination Gaudencio: NO Third COVID19 Vaccination Date: no (EMERY CUBA MD) Seasonal Allergies Seasonal Allergies: Yes (USE INHALER) (EMERY CUBA MD) Past Medical History Surgery/Hospitalization HX: icd mdt to left chest Surgeries: Yes (CARDIAC CATH 11/2019--NO INTERVENTION;ICD/DEFIBRILLATOR 06/04/20) Cardiac, Defibrillator Respiratory: Yes Asthma Currently Using CPAP: No Currently Using BIPAP: No Cardiac: Yes (CHF-NEEDS LIFEVEST/REFUSES TO WEAR;NSTEMI;EF10%;LBBB;DEFIBRILLATOR 06/04/20) Cardiomyopathy, Chronic Edema/Swelling, Heart Attack, High Cholesterol, H ypertension Neurological: Yes Stroke Sexually Transmitted Disease: Yes (CHLAMYDIA; GONORRHEA 10/05/19) Genitourinary: No Gastrointestinal: No Musculoskeletal: No Endocrine: No HEENT: No Cancer: No Psychosocial: Yes (SUBSTANCE ABUSE) Integumentary: No Blood Disorders: No (EMERY UCBA MD) Family Medical History Asthma AUNT Hypertension MOTHER No Pertinent Family Hx HAS BEEN OUT OF GROUP HOME SINCE 2019 VERY NON-COMPLIANT IN ALL ASPECTS OF CARE NEEDS LIFE VEST-=-REFUSES TO WEAR; NSTEMI; EF 10%; LBBB ICD/DEFIBRILLATOR PLACED BY DR. ENCISO 06/04/20 SOCIAL HISTORY: -ETOH-RARELY USES -DRUGS--METH, COCAINE, THC. DENIES IV USE-STATES HE SMOKES THEM -NO TOBACCO PAST SURGICAL HISTORY: -CARDIAC CATH 11/2019--NO INTERVENTION -ICD DEFIBRILLATOR PLACED 06/04/[address] ENCISO ECHOCARDIOGRAM 05/17/2020 (EMERY CUBA MD) Physical Exam Vital Signs Vital Signs - First Documented 08/20/21 15:50 Temp 35.6 Pulse 69 Resp 16 B/P (MAP) 133/78 (96) Pulse Ox 99 (MARLON,AUGUSTINE J) Vital Signs Capillary Refill : (EMERY CUBA MD) Height, Weight, BMI Height: '" Weight: lbs. oz. kg; 25.00 BMI Method: General Appearance: No Apparent Distress, WD/WN HEENT: PERRL/EOMI, Normal ENT Inspection Neck: JVD (Mild) Respiratory: No Accessory Muscle Use, No Respiratory Distress, Decreased Breath Sounds (Diminished in the left lower lung, otherwise clear) Cardiovascular: Regular Rate, Rhythm, No Murmur, Other (Generalized firm edema throughout the lower extremities) Extremity: Non Tender, Pedal Edema, Swelling Neurologic/Psychiatric: Alert, Oriented x3, No Motor/Sensory Deficits, Normal Mood/Affect Skin: Normal Color, Warm/Dry (EMERY CUBA MD) Progress/Results/Core Measures Results/Orders Lab Results Laboratory Tests Test 08/20/21 15:57 08/20/21 16:22 08/20/21 18:05 Range/Units White Blood Count 3.5 L 4.3-11.0 10^3/uL Red Blood Count 4.38 4.30-5.52 10^6/uL Hemoglobin 12.0 L 13.3-17.7 g/dL Hematocrit 37 L 40-54 % Mean Corpuscular Volume 85 80-99 fL Mean Corpuscular Hemoglobin 27 25-34 pg Mean Corpuscular Hemoglobin Concent 32 32-36 g/dL Red Cell Distribution Width 18.3 H 10.0-14.5 % Platelet Count 137 130-400 10^3/uL Mean Platelet Volume 9.8 9.0-12.2 fL Immature Granulocyte % (Auto) 0 % Neutrophils (%) (Auto) 66 42-75 % Lymphocytes (%) (Auto) 16 12-44 % Monocytes (%) (Auto) 13 H 0-12 % Eosinophils (%) (Auto) 4 0-10 % Basophils (%) (Auto) 1 0-10 % Neutrophils # (Auto) 2.3 1.8-7.8 10^3/uL Lymphocytes # (Auto) 0.6 L 1.0-4.0 10^3/uL Monocytes # (Auto) 0.4 0.0-1.0 10^3/uL Eosinophils # (Auto) 0.1 0.0-0.3 10^3/uL Basophils # (Auto) 0.0 0.0-0.1 10^3/uL Immature Granulocyte # (Auto) 0.0 0.0-0.1 10^3/uL Prothrombin Time 18.2 H 12.2-14.7 SEC INR Comment 1.5 H 0.8-1.4 Activated Partial Thromboplast Time 34 24-35 SEC Sodium Level 134 L 135-145 MMOL/L Potassium Level 3.7 3.6-5.0 MMOL/L Chloride Level 103 98-107 MMOL/L Carbon Dioxide Level 24 21-32 MMOL/L Anion Gap 7 5-14 MMOL/L Blood Urea Nitrogen 14 7-18 MG/DL Creatinine 1.16 0.60-1.30 MG/DL Estimat Glomerular Filtration Rate 80 BUN/Creatinine Ratio 12 Glucose Level 104 70-105 MG/DL Calcium Level 7.9 L 8.5-10.1 MG/DL Corrected Calcium 8.7 8.5-10.1 MG/DL Magnesium Level 1.9 1.6-2.4 MG/DL Total Bilirubin 2.2 H 0.1-1.0 MG/DL Aspartate Amino Transf (AST/SGOT) 114 H 5-34 U/L Alanine Aminotransferase (ALT/SGPT) 69 H 0-55 U/L Alkaline Phosphatase 149 H 40-136 U/L Myoglobin 58.3 10.0-92.0 NG/ML Troponin I 0.037 H < 0.028 <0.028 NG/ML B-Type Natriuretic Peptide 2453.9 H <100.0 PG/ML Total Protein 7.1 6.4-8.2 GM/DL Albumin 3.0 L 3.2-4.5 GM/DL Urine Opiates Screen NEGATIVE NEGATIVE Urine Oxycodone Screen NEGATIVE NEGATIVE Urine Methadone Screen NEGATIVE NEGATIVE Urine Propoxyphene Screen NEGATIVE NEGATIVE Urine Barbiturates Screen NEGATIVE NEGATIVE Ur Tricyclic Antidepressants Screen NEGATIVE NEGATIVE Urine Phencyclidine Screen NEGATIVE NEGATIVE Urine Amphetamines Screen NEGATIVE NEGATIVE Urine Methamphetamines Screen NEGATIVE NEGATIVE Urine Benzodiazepines Screen NEGATIVE NEGATIVE Urine Cocaine Screen NEGATIVE NEGATIVE Urine Cannabinoids Screen NEGATIVE NEGATIVE (AUGUSTINE BOLANOS) My Orders Orders - AUGUSTINE BOLANOS Furosemide Injection (Lasix Injection) (08/20/21 19:00) (AUGUSTINE BOLANOS) Vital Signs/I&O 08/20/21 15:50 Temp 35.6 Pulse 69 Resp 16 B/P (MAP) 133/78 (96) Pulse Ox 99 (AUGUSTINE BOLANOS) Blood Pressure Mean: 96 Progress Progress Note : Time: 18:35 Progress Note Patient's labs revealed a BNP consistent with prior lab values. He also had an elevated troponin which may be secondary to his heart failure. He does not have obstructive coronary artery disease based on his prior angiography. A repeat troponin is being obtained to ensure that this is not a dynamic change. No pleural effusions were identified on chest x-ray. I discussed this case with Dr. Bolanos and care is being transitioned to him at this time. (EMERY CUBA MD) Progress Note : Time: 18:47 Progress Note Reviewed imaging which was stable from previous x-rays as well as the patient was reexamined. He does not have any evidence of pleural or cardiac effusion. We will give him a dose of Lasix 40 mg IV and put him on an additional 20 mg afternoon dose with return precautions. Follow-up this week with cardiology for recheck. He is okay with this plan (AUGUSTINE BOLANOS) Initial ECG Impression Date: Aug 20, 2021 Initial ECG Impression Time: 16:04 Initial ECG Rate: 66 Comment Sinus rhythm with first-degree AV block with SD interval of 213 ms. Chronic left bundle branch block similar to prior. No acute ST elevation or depression. Left axis deviation noted. (EMERY CUBA MD) Diagnostic Imaging Diagonstic Imaging: Xray Plain Films/CT/US/NM/MRI: chest Comments NAME: SHELDONCHERRIE MED REC#: [id number] PT STATUS: REG ER : 1980 PHYSICIAN: EMERY CUBA MD ADMIT DATE: 08/20/21/ER Draft Date of Exam:08/20/21 CHEST PA/LAT (2 VIEW) CLINICAL INDICATION: Patient with shortness of breath. EXAM: Chest x-ray, PA and lateral views. COMPARISON: Chest x-ray dated 08/12/2021. FINDINGS: Lungs/pleura: Lungs are clear. There is no pneumothorax. There is no pleural effusion. Mediastinum: Unremarkable. Pulmonary vasculature: Stable marked enlargement of the heart. Pericardial effusion cannot be excluded. Pacemaker/IACD again seen in stable position. Heart: Unremarkable. Bones/extrathoracic soft tissue: Unremarkable. IMPRESSION: 1: Stable chest x-ray exam with enlargement of the cardiac silhouette. Pericardial effusion should be excluded. There is no pulmonary vascular congestion. 2: There is no lung infiltrate. Dictated on workstation # [id number] Dict: 08/20/21 1619 Trans: 08/20/21 1624 [id number] Interpreted by: JIGNESH GARG MD (EMERY CUBA MD) Departure Impression Primary Impression: Acute exacerbation of CHF (congestive heart failure) Qualified Codes: I50.9 - Heart failure, unspecified Additional Impressions: Anasarca Dyspnea Qualified Codes: R06.02 - Shortness of breath Disposition: 01 HOME, SELF-CARE Condition: Stable Departure-Patient Inst. Decision time for Depature: 18:59 (AUGUSTINE BOLANOS) Referrals: AMARJIT CONROY MD (PCP/Family) Primary Care Physician FLORA ENCISO MD Patient Instructions: Medicines for Heart Failure With Reduced Ejection Fraction Add. Discharge Instructions: You do not have any evidence of collected fluid around your lungs that would need drained directly by a needle or chest tube. You do however have excessive fluid in the vasculature which is what is contributing to your shortness of air. This is caused by your chronic heart failure. To get rid of this excess fluid will have to use a shot of Lasix today through your IV. This should help you urinate off the extra fluid for about 6 hours. Tomorrow continue taking your routine 40 mg of Lasix in the morning and take an additional 20 mg of Lasix in the afternoon at least 6 hours after the first dose. 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 You will have to call Dr. Enciso in the morning to make this appointment. Return to the ER promptly if you are having increasing shortness of breath, chest pain or other worrisome symptoms. All discharge instructions reviewed with patient and/or family. Voiced und erstanding. Scripts Furosemide (Furosemide) 20 Mg Tablet 20 MG PO DAILY for 14 Days, #14 TAB 0 Refills Take 6 hours after the AM dose. Prov: AUGUSTINE BOLANOS 08/20/21 Copy Copies To 1: FLORA ENCISO MD, JOSHUA T MD Aug 20, 2021 17:34 AUGUSTINE BOLANOS Aug 20, 2021 19:03
[2021-08-20] MEDS ORDERED: FUROSEMIDE 40 MG/4 ML INJ (LASIX) IVP ONE (19:00)
[2021-08-20] MEDS ORDERED: FURO20TA4 PO (19:04)
[2021-08-20 19:09] VITALS: BP 126/82
== END 2021-08-20 19:17 | disposition home or self-care (01) ==
LOC: EDUNIT# 15:38 → ER 15:39
DX: I11.0 Hypertensive heart disease with heart failure (principal); I50.9 Heart failure, unspecified; R77.8 Other specified abnormalities of plasma proteins; I44.0 Atrioventricular block, first degree; I44.7 Left bundle-branch block, unspecified; Z95.810 Presence of automatic (implantable) cardiac defibrillator
CPT/HCPCS: 36415; 71046; 80053; 80306; 83735; 83874; 83880; 84484; 85025; 85610; 85730; 93005

== ENCOUNTER 2021-11-14 17:47 | Emergency (ER) | payer MEDICAID, OTHER ==
[~2021-11-14] VITALS: Ht 172 cm; Wt 80.0 kg
--- NOTE | 2021-11-14 17:52 | ED GI ---
General Stated Complaint: VOMITTING BLOOD History of Present Illness Date Seen by Provider: Nov 14, 2021 Time Seen by Provider: 17:52 Initial Comments 41-year-old male presents with tooth pain. Patient presented to urgent care with tooth pain where he had an episode of vomiting he had a little bit of red tinge to it. Patient reports that for at least a week he has had a hard time keeping things down. He has had nausea vomiting diarrhea. Patient reports he just has An upset stomach but denies any abdominal pain. Patient reports smoking marijuana yesterday and thinks it was laced with some. Patient has a history of CHF with defibrillator, ascites due to past drug use. Allergies and Home Medications Allergies Coded Allergies: No Known Drug Allergies (Unverified , 10/05/19) Patient Home Medication List Home Medication List Reviewed: Yes Amiodarone HCl (Amiodarone HCl) 200 Mg Tablet, 200 MG PO DAILY Prescribed by: RITA VO on 08/12/21 133 Aspirin (Children's Aspirin) 81 Mg Tab.chew, 81 MG PO DAILY@0900 Prescribed by: RITA VO on 08/12/21 133 Atorvastatin Calcium (Atorvastatin Calcium) 20 Mg Tablet, 20 MG PO HS Prescribed by: ALEJA TORRES on 03/11/21 1429 Carvedilol (Carvedilol) 6.25 Mg Tablet, 6.25 MG PO BID Prescribed by: RITA VO on 08/12/21 133 Furosemide (Furosemide) 40 Mg Tablet, 40 MG PO DAILY, (Reported) Entered as Reported by: DIVYA SHOOK on 06/04/20 0944 Furosemide (Furosemide) 20 Mg Tablet, 20 MG PO DAILY Prescribed by: AUGUSTINE MASON on 08/20/21 1904 Losartan Potassium (Losartan Potassium) 50 Mg Tablet, 50 MG PO DAILY Prescribed by: RITA VO on 08/12/21 133 Spironolactone (Spironolactone) 25 Mg Tablet, 25 MG PO DAILY Prescribed by: ALEJA TORRES on 03/11/21 1429 Review of Systems Review of Systems Constitutional: No chills, No fever EENTM: See HPI Respiratory: Denies Cough, Denies Shortness of Air Cardiovascular: No Symptoms Reported Gastrointestinal: Diarrhea, Nausea, Vomiting Musculoskeletal: no symptoms reported Skin: no symptoms reported Psychiatric/Neurological: No Symptoms Reported Endocrine: No Symptoms Reported Hematologic/Lymphatic: No Symptoms Reported Past Iqdonvd-Lbtxeb-Wsipqq Hx Immunizations Up To Date Tetanus Booster (TDap): Unknown First/Initial COVID19 Vaccinat: no Second COVID19 Vaccination Gaudencio: NO Third COVID19 Vaccination Date: no Seasonal Allergies Seasonal Allergies: Yes (USE INHALER) Past Medical History Surgery/Hospitalization HX: icd mdt to left chest Surgeries: Yes (CARDIAC CATH 11/2019--NO INTERVENTION;ICD/DEFIBRILLATOR 06/04) Cardiac, Defibrillator Respiratory: Yes Asthma Currently Using CPAP: No Currently Using BIPAP: No Cardiac: Yes (CHF-NEEDS LIFEVEST/REFUSES TO WEAR;NSTEMI;EF10%;LBB B;DEFIBRILLATOR 06/04/20) Cardiomyopathy, Chronic Edema/Swelling, Heart Attack, High Cholesterol, Hypertension Neurological: Yes Stroke Sexually Transmitted Disease: Yes (CHLAMYDIA; GONORRHEA 10/05/19) Genitourinary: No Gastrointestinal: No Musculoskeletal: No Endocrine: No HEENT: No Cancer: No Psychosocial: Yes (SUBSTANCE ABUSE) Integumentary: No Blood Disorders: No Family Medical History Asthma AUNT Hypertension MOTHER No Pertinent Family Hx HAS BEEN OUT OF NURSING HOME SINCE 2019 VERY NON-COMPLIANT IN ALL ASPECTS OF CARE NEEDS LIFE VEST-=-REFUSES TO WEAR; NSTEMI; EF 10%; LBBB ICD/DEFIBRILLATOR PLACED BY DR. MAGDALENO 06/04/20 SOCIAL HISTORY: -ETOH-RARELY USES -DRUGS--METH, COCAINE, THC. DENIES IV USE-STATES HE SMOKES THEM -NO TOBACCO PAST SURGICAL HISTORY: -CARDIAC CATH 11/2019--NO INTERVENTION -ICD DEFIBRILLATOR PLACED 06/04/[address] MAGDALENO ECHOCARDIOGRAM 05/17/2020 Physical Exam Vital Signs Vital Signs - First Documented 11/14/21 18:02 Temp 35.9 Pulse 60 Resp 18 B/P (MAP) 120/85 (97) Pulse Ox 98 Capillary Refill : Height/Weight/BMI Height: '" Weight: lbs. oz. kg; 25.00 BMI Method: General Appearance: no apparent distress HEENT: other (Poor dentition with multiple fractured teeth and dental caries on the left both upper and lower gum) Respiratory: lungs clear, normal breath sounds Cardiovascular: normal peripheral pulses, regular rate, rhythm Gastrointestinal: non tender, soft; No guarding, No rebound Neurologic/Psychiatric: alert, normal mood/affect, oriented x 3 Skin: normal color, warm/dry Progress/Results/Core Measures Results/Orders Lab Results Laboratory Tests Test 11/14/21 17:50 Range/Units White Blood Count 3.6 L 4.3-11.0 10^3/uL Red Blood Count 4.27 L 4.30-5.52 10^6/uL Hemoglobin 12.3 L 13.3-17.7 g/dL Hematocrit 38 L 40-54 % Mean Corpuscular Volume 89 80-99 fL Mean Corpuscular Hemoglobin 29 25-34 pg Mean Corpuscular Hemoglobin Concent 32 32-36 g/dL Red Cell Distribution Width 19.4 H 10.0-14.5 % Platelet Count 186 130-400 10^3/uL Mean Platelet Volume 10.4 9.0-12.2 fL Immature Granulocyte % (Auto) 0 % Neutrophils (%) (Auto) 65 42-75 % Lymphocytes (%) (Auto) 18 12-44 % Monocytes (%) (Auto) 14 H 0-12 % Eosinophils (%) (Auto) 3 0-10 % Basophils (%) (Auto) 1 0-10 % Neutrophils # (Auto) 2.3 1.8-7.8 10^3/uL Lymphocytes # (Auto) 0.7 L 1.0-4.0 10^3/uL Monocytes # (Auto) 0.5 0.0-1.0 10^3/uL Eosinophils # (Auto) 0.1 0.0-0.3 10^3/uL Basophils # (Auto) 0.0 0.0-0.1 10^3/uL Immature Granulocyte # (Auto) 0.0 0.0-0.1 10^3/uL Prothrombin Time 17.3 H 12.2-14.7 SEC INR Comment 1.4 0.8-1.4 Activated Partial Thromboplast Time 34 24-35 SEC Sodium Level 132 L 135-145 MMOL/L Potassium Level 3.7 3.6-5.0 MMOL/L Chloride Level 98 98-107 MMOL/L Carbon Dioxide Level 24 21-32 MMOL/L Anion Gap 10 5-14 MMOL/L Blood Urea Nitrogen 18 7-18 MG/DL Creatinine 1.50 H 0.60-1.30 MG/DL Estimat Glomerular Filtration Rate 59 BUN/Creatinine Ratio 12 Glucose Level 82 70-105 MG/DL Calcium Level 8.7 8.5-10.1 MG/DL Corrected Calcium 8.9 8.5-10.1 MG/DL Total Bilirubin 2.4 H 0.1-1.0 MG/DL Aspartate Amino Transf (AST/SGOT) 45 H 5-34 U/L Alanine Aminotransferase (ALT/SGPT) 16 0-55 U/L Alkaline Phosphatase 204 H 40-136 U/L Total Protein 7.9 6.4-8.2 GM/DL Albumin 3.8 3.2-4.5 GM/DL Lipase 13 8-78 U/L My Orders Orders - MARX,JANEL L DO Cbc With Automated Diff (11/14/21 18:00) Comprehensive Metabolic Panel (11/14/21 18:00) Lipase (11/14/21 18:00) Protime With Inr (11/14/21 18:00) Partial Thromboplastin Time (11/14/21 18:00) Drug Screen Stat (Urine) (11/14/21 18:00) Ua Culture If Indicated (11/14/21 18:00) Pantoprazole Injection (Protonix Injecti (11/14/21 18:00) Ondansetron Injection (Zofran Injectio (11/14/21 18:00) Ns Iv 1000 Ml (Sodium Chloride 0.9%) (11/14/21 18:00) Medications Given in ED Current Medications Medications Dose Ordered Sig/Nelly Route Start Time Stop Time Status Last Admin Dose Admin Ondansetron HCl 4 mg ONCE ONCE IVP 11/14/21 18:00 11/14/21 18:03 DC 11/14/21 18:17 4 MG Vital Signs/I&O 11/14/21 18:02 Temp 35.9 Pulse 60 Resp 18 B/P (MAP) 120/85 (97) Pulse Ox 98 Progress Progress Note : Progress Note Patient with no episodes of vomiting or diarrhea while here in the ER. Patient's only wanting something for his teeth. Patient reports he is hungry and is ready to go home. I will prescribe an antibiotic for his tooth along with some nausea medication. Patient's labs consistent with a likely viral syndrome. Patient is stable and discharged Departure Impression Primary Impression: Viral gastroenteritis Additional Impression: Chronic dental infection Disposition: HOME, SELF-CARE Condition: Stable Departure-Patient Inst. Referrals: AMARJIT CONROY MD (PCP/Family) Primary Care Physician Patient Instructions: Dental Pain ED, Viral Gastroenteritis in Adults Add. Discharge Instructions: Please follow-up with dentist next week for recheck of symptoms and your primary care provider for recheck of your diarrhea nausea and vomiting Scripts Hydrocodone/Acetaminophen (Hydrocodone-Acetamin 5-325 mg) 5 Mg-325 Mg Tablet 1 TAB PO Q8H PRN for PAIN-MODERATE (5-7), #5 TAB Prov: JANEL MARX DO 11/14/21 Ondansetron (Ondansetron Odt) 4 Mg Tab.rapdis 4 MG PO Q6H PRN for NAUSEA/VOMITING, #20 TAB 0 Refills Prov: JANEL MARX DO 11/14/21 Cephalexin (Cephalexin) 500 Mg Tablet 500 MG PO QID, #20 TAB 0 Refills Prov: JANEL MARX DO 11/14/21 JANEL MARX DO Nov 14, 2021 17:52
[2021-11-14] MEDS ORDERED: NS IV 1000 ML 1,000 ML IV STA (18:00)
[2021-11-14] MEDS ORDERED: ONDANSETRON 4 MG/2 ML (SDV) Z0FRAN IVP ONE (18:00)
[2021-11-14] MEDS ORDERED: PANTOPRAZOLE 40 MG (PROTONIX) VIAL IV STA (18:00)
[2021-11-14 18:13] LABS: BASOPHILS % (AUTO) 1 % (0-10); EOSINOPHILS # (AUTO) 0.1 10^3/uL (0.0-0.3); EOSINOPHILS % (AUTO) 3 % (0-10); HEMATOCRIT 38 % (40-54); HEMOGLOBIN 12.3 g/dL (13.3-17.7); LYMPHOCYTES # (AUTO) 0.7 10^3/uL (1.0-4.0); LYMPHOCYTES % (AUTO) 18 % (12-44); MEAN CORPUSCULAR HEMOGLOBIN 29 pg (25-34); MEAN CORPUSCULAR HGB CONC 32 g/dL (32-36); MEAN CORPUSCULAR VOLUME 89 fL (80-99); MEAN PLATELET VOLUME 10.4 fL (9.0-12.2); MONOCYTES # (AUTO) 0.5 10^3/uL (0.0-1.0); MONOCYTES % (AUTO) 14 % (0-12); NEUTROPHILS # (AUTO) 2.3 10^3/uL (1.8-7.8); NEUTROPHILS % (AUTO) 65 % (42-75); PLATELET COUNT 186 10^3/uL (130-400); WHITE BLOOD COUNT 3.6 10^3/uL (4.3-11.0)
[2021-11-14 18:50] LABS: CREATININE SERUM 1.5 MG/DL (0.60-1.30); INR 1.4 (0.8-1.4); POTASSIUM 3.7 MMOL/L (3.6-5.0); PROTHROMBIN TIME PATIENT 17.3 SEC (12.2-14.7)
[2021-11-14 18:51] LABS: ALBUMIN 3.8 GM/DL (3.2-4.5); BILIRUBIN,TOTAL 2.4 MG/DL (0.1-1.0); CALCIUM 8.7 MG/DL (8.5-10.1); TOTAL PROTEIN 7.9 GM/DL (6.4-8.2)
[2021-11-14] MEDS ORDERED: ONDA4TAB11 PO (19:23)
[2021-11-14] MEDS ORDERED: ACHD5005 PO (19:23)
[2021-11-14] MEDS ORDERED: CEPH500T PO (19:23)
[2021-11-14 19:43] VITALS: BP 108/77
== END 2021-11-14 19:43 | disposition home or self-care (01) ==
LOC: EDUNIT# 17:47 → ER FS 17:48
DX: K04.7 Periapical abscess without sinus (principal); K03.81 Cracked tooth; K02.9 Dental caries, unspecified; A08.4 Viral intestinal infection, unspecified; Z28.310 Unvaccinated for COVID-19
CPT/HCPCS: 36415; 80053; 83690; 85025; 85610; 85730; 99283

== ENCOUNTER 2021-12-21 16:39 | Emergency (ER) | payer SELFPAY ==
[2021-12-21 16:39] VITALS: BP 108/66
[~2021-12-21 16:39] MED LIST changes: +ACHD5005 PO; +CEPH500T PO; +ONDA4TAB11 PO
--- NOTE | 2021-12-21 16:52 | ED GI ---
General Stated Complaint: VOMITING History of Present Illness Date Seen by Provider: Dec 21, 2021 Time Seen by Provider: 16:41 Initial Comments 41-year-old male with PMH of cardiac issue requiring defibrillator (patient does not know what cardiac condition he has)/HTN, is brought in by EMS with complaints of vomiting blood after taking approximately 250 mg of edibles. Patient states that he had about 10 sips of vodka. Patient states this is the second time he has ever had the edibles. He denies having a drug and alcohol p roblem. Denies diarrhea, fever, chest pain, shortness of breath, headache, dizziness, dysuria, melena, hematochezia. Patient states that the first episode of vomitus appeared to have a lot of blood but after that just specks of blood. Patient does not have any known stomach issues as per patient. Allergies and Home Medications Allergies Coded Allergies: No Known Drug Allergies (Unverified , 10/05/19) Patient Home Medication List Home Medication List Reviewed: Yes Amiodarone HCl (Amiodarone HCl) 200 Mg Tablet, 200 MG PO DAILY Prescribed by: RITA VO on 08/12/21 133 Aspirin (Children's Aspirin) 81 Mg Tab.chew, 81 MG PO DAILY@0900 Prescribed by: RITA VO on 08/12/21 133 Atorvastatin Calcium (Atorvastatin Calcium) 20 Mg Tablet, 20 MG PO HS Prescribed by: ALEJA TORRES on 03/11/21 1429 Carvedilol (Carvedilol) 6.25 Mg Tablet, 6.25 MG PO BID Prescribed by: RITA VO on 08/12/21 133 Cephalexin (Cephalexin) 500 Mg Tablet, 500 MG PO QID Prescribed by: JANEL MARX on 11/14/211922 Furosemide (Furosemide) 40 Mg Tablet, 40 MG PO DAILY, (Reported) Entered as Reported by: DIVYA SHOOK on 06/04/20 0944 Furosemide (Furosemide) 20 Mg Tablet, 20 MG PO DAILY Prescribed by: AUGUSTINE MASON on 08/20/211903 Hydrocodone/Acetaminophen (Hydrocodone-Acetamin 5-325 mg) 5 Mg-325 Mg Tablet, 1 TAB PO Q8H PRN for PAIN-MODERATE (5-7) Prescribed by: JANEL MARX on 11/14/211923 Losartan Potassium (Losartan Potassium) 50 Mg Tablet, 50 MG PO DAILY Prescribed by: RITA VO on 08/12/21 1332 Ondansetron (Ondansetron Odt) 4 Mg Tab.rapdis, 4 MG PO Q6H PRN for NAUSEA/VOMITING Prescribed by: JANEL MARX on 11/14/211922 Spironolactone (Spironolactone) 25 Mg Tablet, 25 MG PO DAILY Prescribed by: ALEJA TORRES on 03/11/21 1429 Review of Systems Review of Systems Constitutional: no symptoms reported EENTM: No Symptoms Reported Respiratory: No Symptoms Reported Cardiovascular: No Symptoms Reported Gastrointestinal: Nausea, Vomiting Genitourinary: No Symptoms Reported Musculoskeletal: no symptoms reported Skin: no symptoms reported Psychiatric/Neurological: No Symptoms Reported Endocrine: No Symptoms Reported Hematologic/Lymphatic: No Symptoms Reported Past Ubazyou-Szqgwk-Umpitk Hx Immunizations Up To Date Tetanus Booster (TDap): Unknown First/Initial COVID19 Vaccinat: no Second COVID19 Vaccination Gaudencio: NO Third COVID19 Vaccination Date: no Seasonal Allergies Seasonal Allergies: Yes (USE INHALER) Past Medical History Surgery/Hospitalization HX: icd mdt to left chest Surgeries: Yes (CARDIAC CATH 11/2019--NO INTERVENTION;ICD/DEFIBRILLATOR 06/04/20) Cardiac, Defibrillator Respiratory: Yes Asthma Currently Using CPAP: No Currently Using BIPAP: No Cardiac: Yes (CHF-NEEDS LIFEVEST/REFUSES TO WEAR;NSTEMI;EF10%;LBBB;DEFIBRILLATOR 06/04/20) Cardiomyopathy, Chronic Edema/Swelling, Heart Attack, High Cholesterol, Hypertension Neurological: Yes Stroke Sexually Transmitted Disease: Yes (CHLAMYDIA; GONORRHEA 10/05/19) Genitourinary: No Gastrointestinal: No Musculoskeletal: No Endocrine: No HEENT: No Cancer: No Psychosocial: Yes (SUBSTANCE ABUSE) Integumentary: No Blood Disorders: No Family Medical History Asthma AUNT Hypertension MOTHER No Pertinent Family Hx HAS BEEN OUT OF SNF SINCE 2019 VERY NON-COMPLIANT IN ALL ASPECTS OF CARE NEEDS LIFE VEST-=-REFUSES TO WEAR; NSTEMI; EF 10%; LBBB ICD/DEFIBRILLATOR PLACED BY DR. MAGDALENO 06/04/20 SOCIAL HISTORY: -ETOH-RARELY USES -DRUGS--METH, COCAINE, THC. DENIES IV USE-STATES HE SMOKES THEM -NO TOBACCO PAST SURGICAL HISTORY: -CARDIAC CATH 11/2019--NO INTERVENTION -ICD DEFIBRILLATOR PLACED 06/04/[address] MAGDALENO ECHOCARDIOGRAM 05/17/2020 Physical Exam Vital Signs Vital Signs - First Documented 12/21/21 16:39 Temp 35.1 Pulse 63 Resp 16 B/P (MAP) 108/66 (80) Pulse Ox 95 O2 Delivery Room Air Capillary Refill : Height/Weight/BMI Height: '" Weight: lbs. oz. kg; 27.00 BMI Method: General Appearance: WD/WN, no apparent distress HEENT: PERRL/EOMI Neck: full range of motion Respiratory: chest non-tender, lungs clear, normal breath sounds Cardiovascular: regular rate, rhythm Gastrointestinal: normal bowel sounds, non tender, soft, distended (mildly) Extremities: normal range of motion Back: normal inspection, no CVA tenderness Neurologic/Psychiatric: no motor/sensory deficits, alert, oriented x 3 Skin: normal color Progress/Results/Core Measures Results/Orders Lab Results Laboratory Tests Test 12/21/21 16:50 12/21/21 17:44 Range/Units White Blood Count 4.0 L 4.3-11.0 10^3/uL Red Blood Count 4.07 L 4.30-5.52 10^6/uL Hemoglobin 11.8 L 13.3-17.7 g/dL Hematocrit 36 L 40-54 % Mean Corpuscular Volume 89 80-99 fL Mean Corpuscular Hemoglobin 29 25-34 pg Mean Corpuscular Hemoglobin Concent 32 32-36 g/dL Red Cell Distribution Width 17.2 H 10.0-14.5 % Platelet Count 177 130-400 10^3/uL Mean Platelet Volume 11.4 9.0-12.2 fL Immature Granulocyte % (Auto) 0 % Neutrophils (%) (Auto) 61 42-75 % Lymphocytes (%) (Auto) 19 12-44 % Monocytes (%) (Auto) 13 H 0-12 % Eosinophils (%) (Auto) 7 0-10 % Basophils (%) (Auto) 1 0-10 % Neutrophils # (Auto) 2.4 1.8-7.8 10^3/uL Lymphocytes # (Auto) 0.7 L 1.0-4.0 10^3/uL Monocytes # (Auto) 0.5 0.0-1.0 10^3/uL Eosinophils # (Auto) 0.3 0.0-0.3 10^3/uL Basophils # (Auto) 0.1 0.0-0.1 10^3/uL Immature Granulocyte # (Auto) 0.0 0.0-0.1 10^3/uL Sodium Level 134 L 135-145 MMOL/L Potassium Level 3.7 3.6-5.0 MMOL/L Chloride Level 96 L 98-107 MMOL/L Carbon Dioxide Level 26 21-32 MMOL/L Anion Gap 12 5-14 MMOL/L Blood Urea Nitrogen 15 7-18 MG/DL Creatinine 1.39 H 0.60-1.30 MG/DL Estimat Glomerular Filtration Rate 65 BUN/Creatinine Ratio 11 Glucose Level 95 70-105 MG/DL Calcium Level 8.7 8.5-10.1 MG/DL Corrected Calcium 9.1 8.5-10.1 MG/DL Magnesium Level 1.7 1.6-2.4 MG/DL Total Bilirubin 1.8 H 0.1-1.0 MG/DL Aspartate Amino Transf (AST/SGOT) 47 H 5-34 U/L Alanine Aminotransferase (ALT/SGPT) 19 0-55 U/L Alkaline Phosphatase 192 H 40-136 U/L Troponin I < 0.30 <0.30 NG/ML Pro-B-Type Natriuretic Peptide 1230.0 H <125.0 PG/ML Total Protein 7.8 6.4-8.2 GM/DL Albumin 3.5 3.2-4.5 GM/DL Salicylates Level 0.6 L 5.0-20.0 MG/DL Acetaminophen Level < 10 L 10-30 UG/ML Serum Alcohol < 10 <10 MG/DL Urine Color YELLOW Urine Clarity CLEAR Urine pH 7.0 5-9 Urine Specific [place] 1.010 L 1.016-1.022 Urine Protein NEGATIVE NEGATIVE Urine Glucose (UA) NEGATIVE NEGATIVE Urine Ketones NEGATIVE NEGATIVE Urine Nitrite NEGATIVE NEGATIVE Urine Bilirubin NEGATIVE NEGATIVE Urine Urobilinogen 2.0 < = 1.0 MG/DL Urine Leukocyte Esterase NEGATIVE NEGATIVE Urine RBC (Auto) NEGATIVE NEGATIVE Urine RBC 0-2 /HPF Urine WBC 2-5 /HPF Urine Squamous Epithelial Cells 2-5 /HPF Urine Crystals NONE /LPF Urine Bacteria TRACE /HPF Urine Casts PRESENT /LPF Urine Hyaline Casts 0-2 H /LPF Urine Mucus SMALL H /LPF Urine Culture Indicated NO Urine Opiates Screen NEGATIVE NEGATIVE Urine Oxycodone Screen NEGATIVE NEGATIVE Urine Methadone Screen NEGATIVE NEGATIVE Urine Propoxyphene Screen NEGATIVE NEGATIVE Urine Barbiturates Screen NEGATIVE NEGATIVE Ur Tricyclic Antidepressants Screen NEGATIVE NEGATIVE Urine Phencyclidine Screen NEGATIVE NEGATIVE Urine Amphetamines Screen NEGATIVE NEGATIVE Urine Methamphetamines Screen POSITIVE H NEGATIVE Urine Benzodiazepines Screen NEGATIVE NEGATIVE Urine Cocaine Screen NEGATIVE NEGATIVE Urine Cannabinoids Screen POSITIVE H NEGATIVE My Orders Orders - MELLO CONLEY MD Chest 1 View Ap/Pa Only (12/21/21 16:51) Acetaminophen (12/21/21 16:51) Alcohol (12/21/21 16:51) Cbc With Automated Diff (12/21/21 16:51) Comprehensive Metabolic Panel (12/21/21 16:51) Drug Screen Stat (Urine) (12/21/21 16:51) Magnesium (12/21/21 16:51) Salicylate (12/21/21 16:51) Ua Culture If Indicated (12/21/21 16:51) Probnp Fs (12/21/21 16:51) Troponin I Fs (12/21/21 16:51) Ed Iv/Invasive Line Start (12/21/21 16:52) Ns Iv 1000 Ml (Sodium Chloride 0.9%) (12/21/21 17:00) Ct Abdomen/Pelvis W (12/21/21 16:52) Thiamine Injection (Vitamin B-1 Injectio (12/21/21 16:58) Folic Acid Tablet (Folic Acid Tablet) (12/21/21 17:00) Occult Blood Stool (12/21/21 17:02) Iohexol Injection (Omnipaque 350 Mg/Ml 1 (12/21/21 17:30) Received Contrast (Hold Metformin- Contr (12/21/21 17:30) Sodium Chloride Flush (Catheter Flush Sy (12/21/21 17:30) Ns (Ivpb) (Sodium Chloride 0.9% Ivpb Bag (12/21/21 17:30) Pantoprazole Injection (Protonix Injecti (12/21/21 18:30) Ns (Ivpb) (Sodium C... W/Pantoprazole In (12/21/21 18:29) Medications Given in ED Current Medications Medications Dose Ordered Sig/Nelly Route Start Time Stop Time Status Last Admin Dose Admin Folic Acid 1 mg ONCE ONCE PO 12/21/21 17:00 12/21/21 17:01 DC 12/21/21 17:18 1 MG Iohexol 100 ml ONCE ONCE IV 12/21/21 17:30 12/21/21 17:31 DC 12/21/21 18:14 80 ML Pantoprazole 80 mg ONCE ONCE IV 12/21/21 18:30 12/21/21 18:35 DC 12/21/21 18:50 80 MG Sodium Chloride 100 ml ONCE ONCE IV 12/21/21 17:30 12/21/21 17:31 DC 12/21/21 18:14 100 ML Vital Signs/I&O 12/21/21 16:39 Temp 35.1 Pulse 63 Resp 16 B/P (MAP) 108/66 (80) Pulse Ox 95 O2 Delivery Room Air Progress Progress Note : Progress Note Pt left AMA: risks and benefits explained and pt still refusing admission and wants to leave 1. MARIJUANA INTOXICATION/ WITH METHAMPHETAMINE: - Pt consumed 250mg of edibles - EKG: non-ischemic - UA/ UDS: positive for methamphetamine and marijuana - s. acetaminophen/ s. salicylates: negative - s. ETOH:negative - NS IVF bolus STAT - Thiamine/ Folic acid STAT - Pt received Zofran in the ambulance - Plan for admission 2. HEMATEMSIS: - CXR: no acute changes, chronic cardiomegally - CT ABD: see report - CBC/ CMP: WBC is 11.8 with a left shift,s. King is 1.8, alk phos is 192 - Troponin undetected - FOB: - Protonix bolus and drip in ER 3. LIA/ DEHYDRATION: - s. Creatinine is 1.39 - NS IVF Diagnostic Imaging Diagonstic Imaging: Xray, CT Plain Films/CT/US/NM/MRI: abdomen, other Comments [facility], [place] NAME: JUDI CHUNGHERIBERTO Del Real USINE IO REC#: [id number] PT STATUS: REG ER : 1980 PHYSICIAN: MELLO CONLEY MD ADMIT DATE: 12/21/21/ER FS Signed Date of Exam:12/21/21 CT ABDOMEN/PELVIS W EXAMINATION: CT abdomen and pelvis with intravenous contrast. TECHNIQUE: Multiple contiguous axial images were obtained through the abdomen and pelvis after the uneventful administration of intravenous contrast. All CT scans use one or more of the following dose optimizing techniques: automated exposure control, MA and/or KvP adjustment based on patient size and exam type or iterative reconstruction. HISTORY: Upper gastrointestinal bleeding. COMPARISON: 06/08/2020. FINDINGS: Limited views of the lower thorax show enlargement of the heart and a pacemaker. Liver is steatotic. There is no biliary ductal dilation. There is gallbladder wall thickening. Pancreas is normal. Spleen is normal. Adrenal glands are normal. There is an area of scarring in the lower pole of the left kidney. No suspicious renal lesion. There is no hydronephrosis. Urinary bladder is normal. Bowel is normal in caliber without obstruction or inflammation. Small amount of free fluid is present in the abdomen. There is body wall edema. No abdominal or pelvic lymphadenopathy. Aorta is normal in caliber without aneurysm. There is no osseous lesion. IMPRESSION: 1. Steatotic liver. There is also gallbladder wall thickening which is likely related to liver disease as the gallbladder is decompressed. 2. Small amount of free fluid in the abdomen and diffuse body wall edema with an enlarged heart. Dictated by: Dictated on workstation # [id number] Dict: 12/21/211834 Trans: 12/21/211852 [facility] [id number] Interpreted by: VALENTIN SHANNON MD Electronically signed by: VALENTIN SHANNON MD 12/21/211852 [facility], [place] NAME: CHERRIE CHUNG Nasima [facility] REC#: [id number] PT STATUS: REG ER : 1980 PHYSICIAN: MELLO CONLEY MD ADMIT DATE: 12/21/21/ER FS Draft Date of Exam:12/21/21 CHEST 1 VIEW AP/PA ONLY EXAMINATION: Chest 1 view. HISTORY: Gastrointestinal bleeding. COMPARISON: 08/12/2021. FINDINGS: There is marked enlargement of the heart, similar to prior exam. No edema or pneumonia. No pleural effusion or pneumothorax. Defibrillator is present. IMPRESSION: Unchanged marked cardiac enlargement. Dictated on workstation # [id number] Dict: 12/21/21 1728 Trans: 12/21/21 1733 [facility] [id number] Interpreted by: VALENTIN SHANNON MD Electronically signed by: Departure Impression Primary Impression: Marijuana intoxication Qualified Codes: F12.929 - Cannabis use, unspecified with intoxication, unspecified Additional Impressions: Methamphetamine abuse LIA (acute kidney injury) Dehydration Disposition: 07 AGAINST MEDICAL ADVICE Condition: Against Medical Advice Departure-Patient Inst. Referrals: AMARJIT CONROY MD (PCP/Family) Primary Care Physician MELLO CONLEY MD Dec 21, 2021 16:52
[2021-12-21] MEDS ORDERED: THIAMINE INJECTION 100 MG in NS (IVPB) 50 ML IV STA (16:58)
[2021-12-21 17:00] LABS: BASOPHILS # (AUTO) 0.1 10^3/uL (0.0-0.1); BASOPHILS % (AUTO) 1 % (0-10); EOSINOPHILS # (AUTO) 0.3 10^3/uL (0.0-0.3); EOSINOPHILS % (AUTO) 7 % (0-10); HEMATOCRIT 36 % (40-54); HEMOGLOBIN 11.8 g/dL (13.3-17.7); LYMPHOCYTES # (AUTO) 0.7 10^3/uL (1.0-4.0); LYMPHOCYTES % (AUTO) 19 % (12-44); MEAN CORPUSCULAR HEMOGLOBIN 29 pg (25-34); MEAN CORPUSCULAR HGB CONC 32 g/dL (32-36); MEAN CORPUSCULAR VOLUME 89 fL (80-99); MEAN PLATELET VOLUME 11.4 fL (9.0-12.2); MONOCYTES # (AUTO) 0.5 10^3/uL (0.0-1.0); MONOCYTES % (AUTO) 13 % (0-12); NEUTROPHILS # (AUTO) 2.4 10^3/uL (1.8-7.8); NEUTROPHILS % (AUTO) 61 % (42-75); PLATELET COUNT 177 10^3/uL (130-400)
[2021-12-21] MEDS ORDERED: FOLIC ACID 1 MG TAB PO ONE (17:00)
[2021-12-21] MEDS ORDERED: NS IV 1000 ML 1,000 ML IV SCH (17:00)
[2021-12-21 17:22] LABS: BUN/CREATININE RATIO 11; CARBON DIOXIDE 26 MMOL/L (21-32); CHLORIDE 96 MMOL/L (98-107); CREATININE SERUM 1.39 MG/DL (0.60-1.30); GFR ESTIMATED 65; POTASSIUM 3.7 MMOL/L (3.6-5.0); SODIUM 134 MMOL/L (135-145)
[2021-12-21 17:23] LABS: ACETAMINOPHEN < 10 UG/ML (10-30); ALANINE AMINOTRANSFERASE 19 U/L (0-55); ALBUMIN 3.5 GM/DL (3.2-4.5); ALKALINE PHOSPHATASE 192 U/L (40-136); BILIRUBIN,TOTAL 1.8 MG/DL (0.1-1.0); CALCIUM 8.7 MG/DL (8.5-10.1); GLUCOSE 95 MG/DL (70-105); MAGNESIUM 1.7 MG/DL (1.6-2.4); SALICYLATE 0.6 MG/DL (5.0-20.0); TOTAL PROTEIN 7.8 GM/DL (6.4-8.2)
[2021-12-21] MEDS ORDERED: CATHETER FLUSH 10 ML SYR IV PRN (17:30)
[2021-12-21] MEDS ORDERED: IOHEXOL 350 MG/ML 100 ML (OMNIPAQUE 350) VIAL IV ONE (17:30)
[2021-12-21] MEDS ORDERED: NS 100 ML (IVPB) BAG IV ONE (17:30)
[2021-12-21] MEDS ORDERED: HOLD METFORMIN - RECEIVED CONTRAST 20 ML VIAL IV SCH (17:30)
--- NOTE | 2021-12-21 17:33 | Diagnostic Imaging Report ---
EXAMINATION: Chest 1 view. HISTORY: Gastrointestinal bleeding. COMPARISON: 08/12/2021. FINDINGS: There is marked enlargement of the heart, similar to prior exam. No edema or pneumonia. No pleural effusion or pneumothorax. Defibrillator is present. IMPRESSION: Unchanged marked cardiac enlargement. Dictated by: Dictated on workstation # [id number]
[2021-12-21 17:47] LABS: BILIRUBIN,URINE NEGATIVE (NEGATIVE); CLARITY,URINE CLEAR; COLOR,URINE YELLOW; GLUCOSE, URINE (UA) NEGATIVE (NEGATIVE); KETONES,URINE NEGATIVE (NEGATIVE); LEUKOCYTE ESTERASE ,URINE NEGATIVE (NEGATIVE); NITRITE,URINE NEGATIVE (NEGATIVE); PROTEIN,URINE NEGATIVE (NEGATIVE)
[2021-12-21 17:52] LABS: BACTERIA,URINE TRACE /HPF; RBC,URINE 0-2 /HPF
[2021-12-21 17:53] LABS: HYALINE CASTS, URINE 0-2 /LPF
[2021-12-21 17:59] LABS: AMPHETAMINE SCREEN, URINE NEGATIVE (NEGATIVE); BARBITURATE SCREEN URINE NEGATIVE (NEGATIVE); BENZODIAZEPINES SCREEN URINE NEGATIVE (NEGATIVE); CANNABINOID SCREEN, URINE POSITIVE (NEGATIVE); COCAINE SCREEN URINE NEGATIVE (NEGATIVE); METHADONE STAT NEGATIVE (NEGATIVE); OPIATE SCREEN URINE NEGATIVE (NEGATIVE); OXYCODONE STAT NEGATIVE (NEGATIVE); PROPOXYPHENE STAT NEGATIVE (NEGATIVE); TRICYCLIC ANTIDEPRESSANTS SCRE NEGATIVE (NEGATIVE)
[2021-12-21] MEDS ORDERED: PANTOPRAZOLE INJECTION 200 MG in NS (IVPB) 100 ML IV STA (18:29)
[2021-12-21] MEDS ORDERED: PANTOPRAZOLE 40 MG (PROTONIX) VIAL IV ONE (18:30)
--- NOTE | 2021-12-21 18:40 | Diagnostic Imaging Report ---
EXAMINATION: CT abdomen and pelvis with intravenous contrast. TECHNIQUE: Multiple contiguous axial images were obtained through the abdomen and pelvis after the uneventful administration of intravenous contrast. All CT scans use one or more of the following dose optimizing techniques: automated exposure control, MA and/or KvP adjustment based on patient size and exam type or iterative reconstruction. HISTORY: Upper gastrointestinal bleeding. COMPARISON: 06/08/2020. FINDINGS: Limited views of the lower thorax show enlargement of the heart and a pacemaker. Liver is steatotic. There is no biliary ductal dilation. There is gallbladder wall thickening. Pancreas is normal. Spleen is normal. Adrenal glands are normal. There is an area of scarring in the lower pole of the left kidney. No suspicious renal lesion. There is no hydronephrosis. Urinary bladder is normal. Bowel is normal in caliber without obstruction or inflammation. Small amount of free fluid is present in the abdomen. There is body wall edema. No abdominal or pelvic lymphadenopathy. Aorta is normal in caliber without aneurysm. There is no osseous lesion. IMPRESSION: 1. Steatotic liver. There is also gallbladder wall thickening which is likely related to liver disease as the gallbladder is decompressed. 2. Small amount of free fluid in the abdomen and diffuse body wall edema with an enlarged heart. Dictated by: Dictated on workstation # [id number]
== END 2021-12-21 20:00 | disposition left against medical advice (07) ==
LOC: EDUNIT# 16:39 → ER FS 16:41
DX: F15.10 Other stimulant abuse, uncomplicated (principal); F12.929 Cannabis use, unspecified with intoxication, unspecified; N17.9 Acute kidney failure, unspecified; E86.0 Dehydration; Z28.310 Unvaccinated for COVID-19
CPT/HCPCS: 36415; 71045; 74177; 80053; 80306; 81000; 83735; 83880; 84484; 85025; 99284; G0480 ×3; 80320; 80329

== ENCOUNTER 2022-01-05 03:29 | Observation (INO) | payer MEDICAID, OTHER ==
[~2022-01-05] VITALS: Ht 172.7 cm; Wt 76.3 kg
[~2022-01-05 03:29] MED LIST changes: +ALBU8.5H6 IH; -RT-ALBUINH IH
--- NOTE | 2022-01-05 04:02 | ED Chest Pain ---
General Stated Complaint: CHESXT PAIN History of Present Illness Date Seen by Provider: Jan 05, 2022 Time Seen by Provider: 03:46 Initial Comments 41-year-old male with PMH of ICD defibrillator [place] [address] Enciso/CHF/methamphetamine and marijuana abuse/mitral regurgitation/pulmonary hypertension/CKD/CAD with a cath in 2019 showing normal coronaries, is here with complaints of left-sided chest discomfort which has been ongoing for the past couple of days. Patient states that he feels an occasional flutter. Patient had a recent ER visit and had left AMA. Today patient has associated nausea, and also complains of distended abdomen and leg edema with intermittent shortness of breath. Denies fever, diarrhea or constipation, abdominal pain. Allergies and Home Medications Allergies Coded Allergies: No Known Drug Allergies (Unverified , 10/05/19) Patient Home Medication List Home Medication List Reviewed: Yes Amiodarone HCl (Amiodarone HCl) 200 Mg Tablet, 200 MG PO DAILY Prescribed by: RITA VO on 08/12/21 133 Aspirin (Children's Aspirin) 81 Mg Tab.chew, 81 MG PO DAILY@0900 Prescribed by: RITA VO on 08/12/21 133 Atorvastatin Calcium (Atorvastatin Calcium) 20 Mg Tablet, 20 MG PO HS Prescribed by: ALEJA TORRES on 03/11/21 1429 Carvedilol (Carvedilol) 6.25 Mg Tablet, 6.25 MG PO BID Prescribed by: RITA VO on 08/12/21 133 Cephalexin (Cephalexin) 500 Mg Tablet, 500 MG PO QID Prescribed by: JANEL MARX on 11/14/211922 Furosemide (Furosemide) 40 Mg Tablet, 40 MG PO DAILY, (Reported) Entered as Reported by: DIVYA SHOOK on 06/04/20 0944 Furosemide (Furosemide) 20 Mg Tablet, 20 MG PO DAILY Prescribed by: AUGUSTINE MASON on 08/20/21 190 Hydrocodone/Acetaminophen (Hydrocodone-Acetamin 5-325 mg) 5 Mg-325 Mg Tablet, 1 TAB PO Q8H PRN for PAIN-MODERATE (5-7) Prescribed by: JANEL MARX on 11/14/211923 Losartan Potassium (Losartan Potassium) 50 Mg Tablet, 50 MG PO DAILY Prescribed by: RITA VO on 08/12/21 1332 Ondansetron (Ondansetron Odt) 4 Mg Tab.rapdis, 4 MG PO Q6H PRN for NAUSEA/VOMIT ING Prescribed by: JANEL MARX on 11/14/211922 Spironolactone (Spironolactone) 25 Mg Tablet, 25 MG PO DAILY Prescribed by: ALEJA TORRES on 03/11/21 1429 Review of Systems Review of Systems Constitutional: no symptoms reported Respiratory: SOA With Exertion Cardiovascular: Chest Pain, Edema, Other Gastrointestinal: Abdomen Distended Genitourinary: No Symptoms Reported Musculoskeletal: no symptoms reported Skin: no symptoms reported Psychiatric/Neurological: No Symptoms Reported Endocrine: No Symptoms Reported Hematologic/Lymphatic: No Symptoms Reported Past Pchvxjt-Hbteoz-Vothwk Hx Immunizations Up To Date Tetanus Booster (TDap): Unknown First/Initial COVID19 Vaccinat: no Second COVID19 Vaccination Gaudencio: NO Third COVID19 Vaccination Date: no Seasonal Allergies Seasonal Allergies: Yes (USE INHALER) Past Medical History Surgery/Hospitalization HX: icd mdt to left chest; CHF; Substance abuse Surgeries: Yes (CARDIAC CATH 11/2019--NO INTERVENTION;ICD/DEFIBRILLATOR 06/04/20) Cardiac, Defibrillator Respiratory: Yes Asthma Currently Using CPAP: No Currently Using BIPAP: No Cardiac: Yes (CHF-NEEDS LIFEVEST/REFUSES TO WEAR;NSTEMI;EF10%;LBBB;DEFIBRILLATOR 06/04/20) Cardiomyopathy, Chronic Edema/Swelling, Heart Attack, High Cholesterol, Hypertension Neurological: Yes Stroke Sexually Transmitted Disease: Yes (CHLAMYDIA; GONORRHEA 10/05/19) Genitourinary: No Gastrointestinal: No Musculoskeletal: No Endocrine: No HEENT: No Cancer: No Psychosocial: Yes (SUBSTANCE ABUSE) Integumentary: No Blood Disorders: No Family Medical History Asthma AUNT Hypertension MOTHER No Pertinent Family Hx HAS BEEN OUT OF SKILLED NURSING SINCE 2019 VERY NON-COMPLIANT IN ALL ASPECTS OF CARE NEEDS LIFE VEST-=-REFUSES TO WEAR; NSTEMI; EF 10%; LBBB ICD/DEFIBRILLATOR PLACED BY DR. ENCISO 06/04/20 SOCIAL HISTORY: -ETOH-RARELY USES -DRUGS--METH, COCAINE, THC. DENIES IV USE-STATES HE SMOKES THEM -NO TOBACCO PAST SURGICAL HISTORY: -CARDIAC CATH 11/2019--NO INTERVENTION -ICD DEFIBRILLATOR PLACED 06/04/[address] ENCISO ECHOCARDIOGRAM 05/17/2020 Physical Exam Vital Signs Vital Signs - First Documented 01/05/22 03:40 Temp 39.1 Pulse 89 Resp 26 B/P (MAP) 131/83 (99) Pulse Ox 95 O2 Delivery Room Air Capillary Refill : Height, Weight, BMI Height: '" Weight: lbs. oz. kg; 27.00 BMI Method: General Appearance: Mild Distress HEENT: PERRL/EOMI Neck: Full Range of Motion Respiratory: Chest Non Tender, Lungs Clear, Normal Breath Sounds, No Accessory Muscle Use Cardiovascular: Regular Rate, Rhythm, Other (pedal edema present) Gastrointestinal: Normal Bowel Sounds, Non Tender, Soft, Distended Extremity: Normal Range of Motion Neurologic/Psychiatric: Alert, Oriented x3, No Motor/Sensory Deficits Skin: Normal Color Lymphatic: No Adenopathy Progress/Results/Core Measures Results/Orders Lab Results Laboratory Tests Test 01/05/22 03:56 01/05/22 04:04 01/05/22 04:19 01/05/22 05:54 Range/Units White Blood Count 5.3 4.3-11.0 10^3/uL Red Blood Count 4.26 L 4.30-5.52 10^6/uL Hemoglobin 12.8 L 13.3-17.7 g/dL Hematocrit 38 L 40-54 % Mean Corpuscular Volume 89 80-99 fL Mean Corpuscular Hemoglobin 30 25-34 pg Mean Corpuscular Hemoglobin Concent 34 32-36 g/dL Red Cell Distribution Width 16.7 H 10.0-14.5 % Platelet Count 136 130-400 10^3/uL Mean Platelet Volume 11.4 9.0-12.2 fL Immature Granulocyte % (Auto) 0 % Neutrophils (%) (Auto) 69 42-75 % Lymphocytes (%) (Auto) 12 12-44 % Monocytes (%) (Auto) 18 H 0-12 % Eosinophils (%) (Auto) 0 0-10 % Basophils (%) (Auto) 1 0-10 % Neutrophils # (Auto) 3.7 1.8-7.8 10^3/uL Lymphocytes # (Auto) 0.6 L 1.0-4.0 10^3/uL Monocytes # (Auto) 1.0 0.0-1.0 10^3/uL Eosinophils # (Auto) 0.0 0.0-0.3 10^3/uL Basophils # (Auto) 0.0 0.0-0.1 10^3/uL Immature Granulocyte # (Auto) 0.0 0.0-0.1 10^3/uL Neutrophils % (Manual) 83 % Lymphocytes % (Manual) 7 % Monocytes % (Manual) 10 % Prothrombin Time 16.6 H 12.2-14.7 SEC INR Comment 1.3 0.8-1.4 Activated Partial Thromboplast Time 35 24-35 SEC D-Dimer 0.59 H 0.00-0.49 UG/ML Sodium Level 127 L 135-145 MMOL/L Potassium Level 4.7 3.6-5.0 MMOL/L Chloride Level 90 L 98-107 MMOL/L Carbon Dioxide Level 26 21-32 MMOL/L Anion Gap 11 5-14 MMOL/L Blood Urea Nitrogen 17 7-18 MG/DL Creatinine 1.44 H 0.60-1.30 MG/DL Estimat Glomerular Filtration Rate 62 BUN/Creatinine Ratio 12 Glucose Level 79 70-105 MG/DL Calcium Level 8.5 8.5-10.1 MG/DL Corrected Calcium 8.7 8.5-10.1 MG/DL Magnesium Level 1.7 1.6-2.4 MG/DL Total Bilirubin 2.2 H 0.1-1.0 MG/DL Aspartate Amino Transf (AST/SGOT) 101 H 5-34 U/L Alanine Aminotransferase (ALT/SGPT) 38 0-55 U/L Alkaline Phosphatase 224 H 40-136 U/L Troponin I < 0.30 <0.30 NG/ML Pro-B-Type Natriuretic Peptide 2294.0 H <125.0 PG/ML Total Protein 8.3 H 6.4-8.2 GM/DL Albumin 3.8 3.2-4.5 GM/DL Serum Alcohol < 10 <10 MG/DL Influenza Type A (RT-PCR) Not Detected Not Detecte Influenza Type B (RT-PCR) Not Detected Not Detecte SARS-CoV-2 RNA (RT-PCR) Not Detected Not Detecte Urine Color YELLOW Urine Clarity CLEAR Urine pH 5.5 5-9 Urine Specific [place] 1.025 H 1.016-1.022 Urine Protein 1+ H NEGATIVE Urine Glucose (UA) NEGATIVE NEGATIVE Urine Ketones NEGATIVE NEGATIVE Urine Nitrite NEGATIVE NEGATIVE Urine Bilirubin 1+ H NEGATIVE Urine Urobilinogen 4.0 < = 1.0 MG/DL Urine Leukocyte Esterase NEGATIVE NEGATIVE Urine RBC (Auto) 1+ H NEGATIVE Urine RBC 2-5 H /HPF Urine WBC 5-10 H /HPF Urine Squamous Epithelial Cells NONE /HPF Urine Crystals NONE /LPF Urine Bacteria TRACE /HPF Urine Casts PRESENT /LPF Urine Hyaline Casts 0-2 H /LPF Urine Granular Casts 0-2 H /LPF Urine Coarse Granular Casts 0-2 H /LPF Urine Mucus LARGE H /LPF Urine Culture Indicated YES Urine Opiates Screen NEGATIVE NEGATIVE Urine Oxycodone Screen NEGATIVE NEGATIVE Urine Methadone Screen NEGATIVE NEGATIVE Urine Propoxyphene Screen NEGATIVE NEGATIVE Urine Barbiturates Screen NEGATIVE NEGATIVE Ur Tricyclic Antidepressants Screen NEGATIVE NEGATIVE Urine Phencyclidine Screen NEGATIVE NEGATIVE Urine Amphetamines Screen POSITIVE H NEGATIVE Urine Methamphetamines Screen POSITIVE H NEGATIVE Urine Benzodiazepines Screen NEGATIVE NEGATIVE Urine Cocaine Screen NEGATIVE NEGATIVE Urine Cannabinoids Screen POSITIVE H NEGATIVE My Orders Orders - MELLO CONLEY MD Cbc With Automated Diff (01/05/22 04:03) Magnesium (01/05/22 04:03) Chest 1 View Ap/Pa Only (01/05/22 04:03) Ekg Tracing (01/05/22 04:03) Comprehensive Metabolic Panel (01/05/22 04:03) Protime With Inr (01/05/22 04:03) Partial Thromboplastin Time (01/05/22 04:03) Monitor-Rhythm Ecg Trace Only (01/05/22 04:03) Aspirin Chewable Tablet (Baby Aspirin Ch (01/05/22 04:15) Ed Iv/Invasive Line Start (01/05/22 04:03) Fibrin Degradation Products (01/05/22 04:03) Troponin I Fs (01/05/22 04:03) Probnp Fs (01/05/22 04:03) Drug Screen Stat (Urine) (01/05/22 04:03) Ua Culture If Indicated (01/05/22 04:03) Alcohol (01/05/22 04:05) Covid 19 Inhouse Test (01/05/22 04:11) Influenza A And B By Pcr (01/05/22 04:11) Manual Differential (01/05/22 03:56) Urine Culture (01/05/22 04:19) Ct Angio Chest W (01/05/22 04:42) Furosemide Injection (Lasix Injection) (01/05/22 04:54) Iohexol Injection (Omnipaque 350 Mg/Ml 1 (01/05/22 05:00) Received Contrast (Hold Metformin- Contr (01/05/22 05:00) Sodium Chloride Flush (Catheter Flush Sy (01/05/22 05:00) Ns (Ivpb) (Sodium Chloride 0.9% Ivpb Bag (01/05/22 05:00) Troponin I Fs (01/05/22 05:36) Ekg Tracing (01/05/22 05:36) Medications Given in ED Current Medications Medications Dose Ordered Sig/Nelly Route Start Time Stop Time Status Last Admin Dose Admin Aspirin 324 mg ONCE ONCE PO 01/05/22 04:15 01/05/22 04:16 DC 01/05/22 04:17 324 MG Iohexol 100 ml ONCE ONCE IV 01/05/22 05:00 01/05/22 05:01 DC 01/05/22 05:19 100 ML Sodium Chloride 10 ml NEEDED PRN IV 01/05/22 05:00 01/05/22 05:19 10 ML Sodium Chloride 100 ml ONCE ONCE IV 01/05/22 05:00 01/05/22 05:01 DC 01/05/22 05:19 100 ML Vital Signs/I&O 01/05/22 03:40 Temp 39.1 Pulse 89 Resp 26 B/P (MAP) 131/83 (99) Pulse Ox 95 O2 Delivery Room Air Progress Progress Note : Progress Note 1. DRUG INDUCED CHEST PAIN: ACUTE CHF EXACERBATION: - CXR: cardiomegally - LABS:normal WBC - UA/ UDS: positive for methamphetamine and marijuana - PRO-BNP: 2,294 - Troponin: undetected - EKG - Pt has a known history of noncompliance with medications - ASA 324mg / Lasix 40mg iv - WIll admit to cardiac stepdown, observation, discussed and accepted by hospitalist 2. ELEVATED D-DIMER: - D-dimer is 0.59 - CTA CHEST: 3. HYPONATREMIA: - s. Na is 127 - Drug induced, both prescription and illicit drugs Diagnostic Imaging Diagonstic Imaging: Xray, CT Plain Films/CT/US/NM/MRI: chest Comments [email or web address] [place], [place] NAME: CHERRIE CHUNG [facility] REC#: [id number] PT STATUS: REG ER : 1980 PHYSICIAN: MELLO CONLEY MD ADMIT DATE: 01/05/22/ER FS Draft Date of Exam:01/05/22 CHEST 1 VIEW AP/PA ONLY INDICATION: Chest pain. COMPARISON: 06/21/2021. TECHNIQUE: Single radiograph of the chest dated 01/05/2022. FINDINGS: Pacer/AICD is again noted with battery pack overlying left chest. The cardiac silhouette is severely enlarged. No significant pulmonary vascular congestion. The lungs are clear. No pleural effusion. No pneumothorax. No acute osseous abnormality. IMPRESSION: Stable examination with marked enlargement of the cardiac silhouette without significant pulmonary vascular congestion. Dictated on workstation # [id number] Dict: 01/05/22 0603 Trans: 01/05/22 0605 [id number] Interpreted by: JULIEN MATIAS MD Electronically signed by: Departure Communication (Admissions) Time/Spoke to Admitting Phy: 06:[address] Fritz Impression Primary Impression: Acute exacerbation of CHF (congestive heart failure) Qualified Codes: I50.9 - Heart failure, unspecified Additional Impressions: Methamphetamine abuse Marijuana abuse, continuous Hyponatremia Chest pain Qualified Codes: R07.9 - Chest pain, unspecified Disposition: 30 STILL A PATIENT Condition: Stable Admissions Decision to Admit Reason: Admit from ER (General) Decision to Admit/Date: Jan 05, 2022 Time/Decision to Admit Time: 06:19 Transfer Method of Transfer: EMS Departure-Patient Inst. Referrals: AMARJIT CONROY MD (PCP/Family) Primary Care Physician MELLO CONLEY MD Jan 05, 2022 04:02
[2022-01-05] MEDS ORDERED: ASPIRIN 81 MG CHEW (CHILDREN'S ASA) PO ONE (04:15)
[2022-01-05 04:17] LABS: BASOPHILS % (AUTO) 1 % (0-10); EOSINOPHILS % (AUTO) 0 % (0-10); HEMATOCRIT 38 % (40-54); HEMOGLOBIN 12.8 g/dL (13.3-17.7); LYMPHOCYTES # (AUTO) 0.6 10^3/uL (1.0-4.0); LYMPHOCYTES % (AUTO) 12 % (12-44); MEAN CORPUSCULAR HEMOGLOBIN 30 pg (25-34); MEAN CORPUSCULAR HGB CONC 34 g/dL (32-36); MEAN CORPUSCULAR VOLUME 89 fL (80-99); MEAN PLATELET VOLUME 11.4 fL (9.0-12.2); MONOCYTES % (AUTO) 18 % (0-12); NEUTROPHILS # (AUTO) 3.7 10^3/uL (1.8-7.8); NEUTROPHILS % (AUTO) 69 % (42-75); PLATELET COUNT 136 10^3/uL (130-400); WHITE BLOOD COUNT 5.3 10^3/uL (4.3-11.0)
[2022-01-05 04:25] LABS: CLARITY,URINE CLEAR; COLOR,URINE YELLOW; GLUCOSE, URINE (UA) NEGATIVE (NEGATIVE); KETONES,URINE NEGATIVE (NEGATIVE); LEUKOCYTE ESTERASE ,URINE NEGATIVE (NEGATIVE); NITRITE,URINE NEGATIVE (NEGATIVE); PH,URINE 5.5 (5-9); PROTEIN,URINE 1+ (NEGATIVE)
[2022-01-05 04:32] LABS: BACTERIA,URINE TRACE /HPF; BILIRUBIN,URINE 1+ (NEGATIVE); GRANULAR CASTS,URINE 0-2 /LPF; HYALINE CASTS, URINE 0-2 /LPF
[2022-01-05 04:33] LABS: INR 1.3 (0.8-1.4); PROTHROMBIN TIME PATIENT 16.6 SEC (12.2-14.7)
[2022-01-05 04:36] LABS: AMPHETAMINE SCREEN, URINE POSITIVE (NEGATIVE); CANNABINOID SCREEN, URINE POSITIVE (NEGATIVE)
[2022-01-05 04:37] LABS: BARBITURATE SCREEN URINE NEGATIVE (NEGATIVE); BENZODIAZEPINES SCREEN URINE NEGATIVE (NEGATIVE); COCAINE SCREEN URINE NEGATIVE (NEGATIVE); METHADONE STAT NEGATIVE (NEGATIVE); OPIATE SCREEN URINE NEGATIVE (NEGATIVE); OXYCODONE STAT NEGATIVE (NEGATIVE); PROPOXYPHENE STAT NEGATIVE (NEGATIVE); TRICYCLIC ANTIDEPRESSANTS SCRE NEGATIVE (NEGATIVE)
[2022-01-05 04:40] LABS: ALBUMIN 3.8 GM/DL (3.2-4.5); BILIRUBIN,TOTAL 2.2 MG/DL (0.1-1.0); CALCIUM 8.5 MG/DL (8.5-10.1); CREATININE SERUM 1.44 MG/DL (0.60-1.30); MAGNESIUM 1.7 MG/DL (1.6-2.4); POTASSIUM 4.7 MMOL/L (3.6-5.0); TOTAL PROTEIN 8.3 GM/DL (6.4-8.2)
[2022-01-05 04:45] LABS: LYMPHOCYTES % (MANUAL) 7 %; MONOCYTES % (MANUAL) 10 %; NEUTROPHILS % (MANUAL) 83 %
[2022-01-05] MEDS ORDERED: FUROSEMIDE 40 MG/4 ML INJ (LASIX) IVP STA (04:54)
[2022-01-05] MEDS ORDERED: HOLD METFORMIN - RECEIVED CONTRAST 20 ML VIAL IV SCH (05:00)
[2022-01-05] MEDS ORDERED: CATHETER FLUSH 10 ML SYR IV PRN (05:00)
[2022-01-05] MEDS ORDERED: IOHEXOL 350 MG/ML 100 ML (OMNIPAQUE 350) VIAL IV ONE (05:00)
[2022-01-05] MEDS ORDERED: NS 100 ML (IVPB) BAG IV ONE (05:00)
--- NOTE | 2022-01-05 06:06 | Diagnostic Imaging Report ---
INDICATION: Chest pain. COMPARISON: 06/21/2021. TECHNIQUE: Single radiograph of the chest dated 01/05/2022. FINDINGS: Pacer/AICD is again noted with battery pack overlying left chest. The cardiac silhouette is severely enlarged. No significant pulmonary vascular congestion. The lungs are clear. No pleural effusion. No pneumothorax. No acute osseous abnormality. IMPRESSION: Stable examination with marked enlargement of the cardiac silhouette without significant pulmonary vascular congestion. Dictated by: Dictated on workstation # [id number]
--- NOTE | 2022-01-05 06:08 | Diagnostic Imaging Report ---
PROCEDURE: CT angiography of the chest with contrast. TECHNIQUE: Multiple contiguous axial images were obtained through the chest after uneventful bolus administration of intravenous contrast. 3D reconstructed CTA MIP acquisitions were also performed. Auto Exposure Controls were utilized during the CT exam to meet ALARA standards for radiation dose reduction. INDICATION: Chest pain and elevated D-dimer. Correlation is made with prior CT angiogram of the chest from 08/12/2021. FINDINGS: Cardiac defibrillator remains in place. Heart is enlarged. The pulmonary arterial system is without evidence of thromboembolism. No definite filling defects are seen within central, lobar segmental branches. Thoracic aorta is normal caliber. There is no dissection. No pericardial or pleural fluid is detected. No pulmonary infiltrates, nodules or masses detected. Upper abdomen is unremarkable. IMPRESSION: 1. Cardiomegaly. 2. No evidence of pulmonary embolism or acute aortic disease. Dictated by: Dictated on workstation # [id number]
[2022-01-05 08:15] VITALS: BP 109/74
[2022-01-05] MEDS ORDERED: diphenhydrAMINE 25 MG TAB (BENADRYL) PO PRN (08:30)
[2022-01-05] MEDS ORDERED: MELATONIN 3 MG TABLET PO PRN (08:30)
[2022-01-05] MEDS ORDERED: ONDANSETRON 4 MG/2 ML (SDV) Z0FRAN IV PRN (08:30)
[2022-01-05] MEDS ORDERED: diphenhydrAMINE 50 MG/ML INJ (BENADRYL) IVP PRN (08:30)
[2022-01-05] MEDS ORDERED: morphine INJ 4 MG/ML 1 ML (VIAL/SYRINGE) IV PRN (08:30)
[2022-01-05] MEDS ORDERED: ANTACID SUSP 30 ML UDC (MYLANTA) PO PRN (08:30)
[2022-01-05] MEDS ORDERED: PATIENT MAY USE OWN MEDS, ALL PO SCH (08:30)
[2022-01-05] MEDS ORDERED: ACETAMINOPHEN 325 MG TABLET PO PRN (08:30)
[2022-01-05] MEDS ORDERED: LORazepam 1 MG (ATIVAN) TAB PO PRN (08:30)
[2022-01-05] MEDS ORDERED: ONDANSETRON 4 MG (ZOFRAN) ORAL DISSOLVE TAB PO PRN (08:30)
[2022-01-05] MEDS ORDERED: BISACODYL 10 MG SUPP (DULCOLAX) PR PRN (08:30)
[2022-01-05] MEDS ORDERED: NITROGLYCERIN 0.4 MG SL TABS BTL 25'S SL PRN (08:30)
[2022-01-05] MEDS ORDERED: polyethylene glycoL POWDER 17 GM (MIRALAX) PACK PO PRN (08:30)
[2022-01-05] MEDS: DOCUSATE SODIUM 100 MG (COLACE) CAP PO SCH ×2 (08:44→20:11)
[2022-01-05] MEDS ORDERED: FLU QUADRIvalent (6 months+) 60 mcg/0.5 ml 2022-23 (Fluzone) IM ONE (08:45)
[2022-01-05] MEDS: ENOXAPARIN 40 MG/0.4 ML (LOVENOX) SYR SC SCH (08:54)
[2022-01-05 09:18] VITALS: BP 131/83
[2022-01-05] MEDS ORDERED: RT-ALBUTEROL/IPRATROPIUM 3 ML (DUONEB) VIAL INH PRN (09:30)
--- NOTE | 2022-01-05 10:49 | Consultation-Cardiology ---
HPI-Cardiology Cardiology Consultation: Date of Consultation 01/05/22 Date of Admission 01/05/22 Attending Physician Amarjit Bernard MD Admitting Physician Admitting Physician: Kely Fritz DO Attending Physician: Kely Fritz DO Consulting Physician AMARJIT CAMPOS JR, MD HPI: Time Seen by a Provider: 10:44 Chief Complaint: REASON FOR CONSULTATION: Acute on chronic heart failure with reduced ejection fraction. I had the pleasure of seeing Nuno on the cardiac stepdown unit at [facility] in [place], [place] today. He normally follows with one of my partners, Dr. Enciso. He has a history of nonischemic dilated cardiomyopathy with a prophylactic defibrillator, mitral and tricuspid regurgitation, pulmonary hypertension, ventricular tachycardia, hypertension, hyperlipidemia and polysubstance abuse. He was in his usual state of health until about 3 days ago when he started experiencing increasing dyspnea on exertion, paroxysmal nocturnal dyspnea and orthopnea. He states that he has been compliant with his medication. He was also having some intermittent palpitations with a sensation of a fluttering in his chest but denies any defibrillator discharges. His breathing has been so bad, he has been trying to sleep on his sofa but even doing that, he was not able to sleep much over the past 3 days due to the shortness of breath. Last evening he could just not get comfortable due to shortness of breath and early this morning came to the emergency room. This morning he is laying flat in bed and feels like his breathing is improving. He denies chest pain, palpitations, syncope, or lower extremity edema. Because of the heart failure, a cardiology consultation was requested. Certain portions of this document may have been dictated utilizing voice recognition technology. Inherent to this technology, typographical and gra mmatical errors may exist. As much as I am diligent to identify and correct these mistakes, some errors may remain in the document. Review of Systems-Cardiology Review of Systems Other comments Review of 10 organ systems is as per the history of present illness, otherwise negative. WFH-Qshdoi-Pmzbuk Hx Patient Social History 2nd Hand Smoke Exposure: No Have you traveled recently?: No Alcohol Use?: No Substance type: Methamphetamine, Marijuana Pt feels they are or have been: No Immunizations Up To Date Tetanus Booster (TDap): Unknown Date of Pneumonia Vaccine: Dec 07, 2018 Date of Influenza Vaccine: Dec 06, 2019 Past Medical History PMH As described under Assessment. Family Medical History Family Medical History: The patient does not know of any family history of premature coronary artery disease in first-degree relatives. Family History: Asthma AUNT Hypertension MOTHER Allergies and Home Medications Allergies Coded Allergies: No Known Drug Allergies (Unverified , 10/05/19) Patient Home Medication List Home Medication List Reviewed: Yes Amiodarone HCl (Amiodarone HCl) 200 Mg Tablet, 200 MG PO DAILY Prescribed by: RITA VO on 08/12/21 133 Aspirin (Children's Aspirin) 81 Mg Tab.chew, 81 MG PO DAILY@0900 Prescribed by: RITA VO on 08/12/21 133 Atorvastatin Calcium (Atorvastatin Calcium) 20 Mg Tablet, 20 MG PO HS Prescribed by: ALEJA TORRES on 03/11/21 142 Carvedilol (Carvedilol) 6.25 Mg Tablet, 6.25 MG PO BID Prescribed by: RITA VO on 08/12/21 133 Cephalexin (Cephalexin) 500 Mg Tablet, 500 MG PO QID Prescribed by: JANEL MARX on 11/14/211922 Furosemide (Furosemide) 40 Mg Tablet, 40 MG PO DAILY, (Reported) Entered as Reported by: DIVYA SHOOK on 06/04/20 0944 Furosemide (Furosemide) 20 Mg Tablet, 20 MG PO DAILY Prescribed by: AUGUSTINE MASON on 08/20/21 190 Hydrocodone/Acetaminophen (Hydrocodone-Acetamin 5-325 mg) 5 Mg-325 Mg Tablet, 1 TAB PO Q8H PRN for PAIN-MODERATE (5-7) Prescribed by: JANEL MARX on 11/14/211923 Losartan Potassium (Losartan Potassium) 50 Mg Tablet, 50 MG PO DAILY Prescribed by: RITA VO on 08/12/21 133 Ondansetron (Ondansetron Odt) 4 Mg Tab.rapdis, 4 MG PO Q6H PRN for NAUSEA/VO MITING Prescribed by: JANEL MARX on 11/14/211922 Spironolactone (Spironolactone) 25 Mg Tablet, 25 MG PO DAILY Prescribed by: ALEJA TORRES on 03/11/21 142 Exam Vital Signs Vital Signs Date Time Temp Pulse Resp B/P (MAP) Pulse Ox O2 Delivery O2 Flow Rate FiO2 01/05/22 09:30 92 Nasal Cannula 6.00 01/05/22 09:18 39.1 89 44 01/05/22 08:15 23 109/74 (86) Physical Exam General: Alert. No acute distress. Well nourished and appears stated age. Eye: Extraocular movements are intact. Conjunctivae are clear. There are no xanthelasma. HENT: Normocephalic. Atraumatic. Carotid pulsations 2/2 without bruits. Neck: Jugular venous pressure does not appear elevated. No thyromegaly appreciated. Respiratory: Lungs are clear to auscultation. Respirations are non-labored. Breath sounds are equal. Symmetrical chest wall expansion. Cardiovascular: Normal rate. Regular rhythm. 2/6 systolic ejection murmur. No gallop. Point of maximal impulse is not appear displaced. Good pulses equal in all extremities. No edema. Gastrointestinal: Soft. Normal bowel sounds. Skin: Skin turgor is normal. There is no pallor. Musculoskeletal: No kyphosis or scoliosis appreciated. Neurologic: Alert and oriented to person, place, time. Cranial nerves 3-12 appear grossly intact. The patient has good motor tone strength in the upper and lower extremities bilaterally. Psychiatric: Cooperative. Appropriate mood & affect. Labs Laboratory Tests Test 01/05/22 03:56 01/05/22 04:04 01/05/22 04:19 01/05/22 05:54 Range/Units White Blood Count 5.3 4.3-11.0 10^3/uL Red Blood Count 4.26 L 4.30-5.52 10^6/uL Hemoglobin 12.8 L 13.3-17.7 g/dL Hematocrit 38 L 40-54 % Mean Corpuscular Volume 89 80-99 fL Mean Corpuscular Hemoglobin 30 25-34 pg Mean Corpuscular Hemoglobin Concent 34 32-36 g/dL Red Cell Distribution Width 16.7 H 10.0-14.5 % Platelet Count 136 130-400 10^3/uL Mean Platelet Volume 11.4 9.0-12.2 fL Immature Granulocyte % (Auto) 0 % Neutrophils (%) (Auto) 69 42-75 % Lymphocytes (%) (Auto) 12 12-44 % Monocytes (%) (Auto) 18 H 0-12 % Eosinophils (%) (Auto) 0 0-10 % Basophils (%) (Auto) 1 0-10 % Neutrophils # (Auto) 3.7 1.8-7.8 10^3/uL Lymphocytes # (Auto) 0.6 L 1.0-4.0 10^3/uL Monocytes # (Auto) 1.0 0.0-1.0 10^3/uL Eosinophils # (Auto) 0.0 0.0-0.3 10^3/uL Basophils # (Auto) 0.0 0.0-0.1 10^3/uL Immature Granulocyte # (Auto) 0.0 0.0-0.1 10^3/uL Neutrophils % (Manual) 83 % Lymphocytes % (Manual) 7 % Monocytes % (Manual) 10 % Prothrombin Time 16.6 H 12.2-14.7 SEC INR Comment 1.3 0.8-1.4 Activated Partial Thromboplast Time 35 24-35 SEC D-Dimer 0.59 H 0.00-0.49 UG/ML Sodium Level 127 L 135-145 MMOL/L Potassium Level 4.7 3.6-5.0 MMOL/L Chloride Level 90 L 98-107 MMOL/L Carbon Dioxide Level 26 21-32 MMOL/L Anion Gap 11 5-14 MMOL/L Blood Urea Nitrogen 17 7-18 MG/DL Creatinine 1.44 H 0.60-1.30 MG/DL Estimat Glomerular Filtration Rate 62 BUN/Creatinine Ratio 12 Glucose Level 79 70-105 MG/DL Calcium Level 8.5 8.5-10.1 MG/DL Corrected Calcium 8.7 8.5-10.1 MG/DL Magnesium Level 1.7 1.6-2.4 MG/DL Total Bilirubin 2.2 H 0.1-1.0 MG/DL Aspartate Amino Transf (AST/SGOT) 101 H 5-34 U/L Alanine Aminotransferase (ALT/SGPT) 38 0-55 U/L Alkaline Phosphatase 224 H 40-136 U/L Troponin I < 0.30 < 0.30 <0.30 NG/ML Pro-B-Type Natriuretic Peptide 2294.0 H <125.0 PG/ML Total Protein 8.3 H 6.4-8.2 GM/DL Albumin 3.8 3.2-4.5 GM/DL Serum Alcohol < 10 <10 MG/DL Influenza Type A (RT-PCR) Not Detected Not Detecte Influenza Type B (RT-PCR) Not Detected Not Detecte SARS-CoV-2 RNA (RT-PCR) Not Detected Not Detecte Urine Color YELLOW Urine Clarity CLEAR Urine pH 5.5 5-9 Urine Specific Trumann 1.025 H 1.016-1.022 Urine Protein 1+ H NEGATIVE Urine Glucose (UA) NEGATIVE NEGATIVE Urine Ketones NEGATIVE NEGATIVE Urine Nitrite NEGATIVE NEGATIVE Urine Bilirubin 1+ H NEGATIVE Urine Urobilinogen 4.0 < = 1.0 MG/DL Urine Leukocyte Esterase NEGATIVE NEGATIVE Urine RBC (Auto) 1+ H NEGATIVE Urine RBC 2-5 H /HPF Urine WBC 5-10 H /HPF Urine Squamous Epithelial Cells NONE /HPF Urine Crystals NONE /LPF Urine Bacteria TRACE /HPF Urine Casts PRESENT /LPF Urine Hyaline Casts 0-2 H /LPF Urine Granular Casts 0-2 H /LPF Urine Coarse Granular Casts 0-2 H /LPF Urine Mucus LARGE H /LPF Urine Culture Indicated YES Urine Opiates Screen NEGATIVE NEGATIVE Urine Oxycodone Screen NEGATIVE NEGATIVE Urine Methadone Screen NEGATIVE NEGATIVE Urine Propoxyphene Screen NEGATIVE NEGATIVE Urine Barbiturates Screen NEGATIVE NEGATIVE Ur Tricyclic Antidepressants Screen NEGATIVE NEGATIVE Urine Phencyclidine Screen NEGATIVE NEGATIVE Urine Amphetamines Screen POSITIVE H NEGATIVE Urine Methamphetamines Screen POSITIVE H NEGATIVE Urine Benzodiazepines Screen NEGATIVE NEGATIVE Urine Cocaine Screen NEGATIVE NEGATIVE Urine Cannabinoids Screen POSITIVE H NEGATIVE Radiology ECHOCARDIOGRAM (08/12/2021): 1. Severe left ventricular dilatation with normal wall thickness. Severe left ventricular systolic dysfunction with an estimated ejection fraction of 15-20%. 2. Left ventricular diastolic function not reported. 3. Right ventricular systolic dysfunction. 4. Severe biatrial enlargement. 5. Moderate to severe mitral regurgitation. 6. Severe tricuspid regurgitation. 7. Estimated pulmonary artery systolic pressure is 30-35 mmHg. ECG Impression ECG Comment Electrocardiogram from the emergency room this morning shows atrial fibrillation with left atrial abnormality, left bundle branch block and possible old inferior myocardial infarction. Diagnosis/Problems Diagnosis/Problems (1) Acute on chronic HFrEF (heart failure with reduced ejection fraction) Status: Acute Assessment & Plan: He appears to have had decompensation of his chronic heart failure with reduced ejection fraction. He states he has been compliant with his medication. I will restart his carvedilol, losartan and spironolactone. He is receiving intravenous furosemide twice daily. I will obtain a follow-up chest x-ray in the morning. He may benefit from cardiac resynchronization therapy (MEDICAL RECORDS CLERK) but I will leave this up to the discretion of his regular pond sawyer. (2) Non-ischemic cardiomyopathy Status: Chronic Assessment & Plan: This has been felt to be due to nonischemic cardiomyopathy. He has had some ventricular tachycardia and has been on amiodarone in the past. I will resume his guideline directed medical therapy as above. Also as above, he does have a wide-complex QRS and in the setting of severe cardiomyopathy, may benefit from MEDICAL RECORDS CLERK upgrade of his defibrillator. (3) Ventricular tachycardia Status: Acute Assessment & Plan: He has had some ventricular tachycardia in the past. I will resume his amiodarone. We may want to consider an electrophysiology evaluation at some point in time if this has not been done in the past. I will leave this up to the discretion of his regular pond sawyer, Dr. Enciso. (4) Mitral regurgitation Status: Chronic Assessment & Plan: He has moderate to severe mitral regurgitation. This is most likely functional mitral regurgitation secondary to the severe left v entricular dilatation. This may also be contributing to his heart failure. (5) Pulmonary hypertension Status: Chronic Assessment & Plan: He has had pulmonary hypertension in the past but his most recent echocardiogram from August, showed a normal pulmonary pressure. (6) Primary hypertension Status: Chronic Assessment & Plan: I will resume his outpatient antihypertensive medication but lower the doses because his blood pressure is somewhat on the low side. (7) Mixed hyperlipidemia Status: Chronic Assessment & Plan: Continue atorvastatin. (8) Cardiac defibrillator in situ Status: Chronic Assessment & Plan: This is monitored in our outpatient device clinic in the office. As above, he may benefit from a MEDICAL RECORDS CLERK upgrade. AMARJIT CAMPOS JR, MD Jan 05, 2022 10:49
[2022-01-05 11:55] VITALS: BP 117/81
[2022-01-05] MEDS ORDERED: ONDA4TAB11 SL (11:55)
--- NOTE | 2022-01-05 11:59 | History & Physical-Hospitalist ---
History of Present Illness HPI/Chief Complaint Chief complaint: Chest pain with shortness of breath HPI: This is a 41-year-old male with known history of congestive heart failure and noncompliance with drug use specifically methamphetamine who presented to the [place] ER with shortness of breath and chest pain. Dr. Rajan's been consulted. He does have defibrillator placed due to end-stage congestive heart failure. Currently he is reporting diarrhea. IV Lasix will be initiated. Source: patient Exam Limitations: no limitations Date Seen 01/05/22 Time Seen by a Provider: 12:00 Attending Physician Ricci Bernard MD PCP Admitting Physician: Kely Fritz DO Attending Physician: Kely rFitz DO Referring Physician Date of Admission Jan 05, 2022 at 08:15 Home Medications & Allergies Home Medications Reviewed patient Home Medication Reconciliation performed by pharmacy medication reconciliations mechanical design technician and/or nursing. Patients Allergies have been reviewed. Allergies Allergies Coded Allergies No Known Drug Allergies (Unverified10/05/19) Past Hrznmry-Jtyjtz-Fdndnq Hx Patient Social History Marrital Status: single Employed/Student: unemployed Tobacco Use?: No Smoking Status: Current Everyday Smoker Substance use?: Yes Substance type: Methamphetamine, Marijuana Alcohol Use?: No Pt feels they are or have been: No Immunizations Up To Date Date of Influenza Vaccine: Dec 06, 2019 First/Initial COVID19 Vaccinat: no Second COVID19 Vaccination Gaudencio: NO Tetanus Booster (TDap): Unknown Hepatitis A: No Hepatitis B: No Date of Pneumonia Vaccine: Dec 07, 2018 Seasonal Allergies Seasonal Allergies: Yes (USE INHALER) Current Status Advance Directives: No Communicates: Verbally Primary Language: Occitan Preferred Spoken Language: Occitan Is interpretation needed?: No Implanted or Applied Medical D: Pacemaker Past Medical History Surgeries: Cardiac, Defibrillator Asthma Currently Using CPAP: No Currently Using BIPAP: No Cardiomyopathy, Chronic Edema/Swelling, Heart Attack, High Cholesterol, Hypertension Stroke Sexually Transmitted Disease: Yes (CHLAMYDIA; GONORRHEA 10/05/19) Blood Disorders: No Systolic CHF s/p ICD Drug dependent Family Medical History Asthma AUNT Hypertension MOTHER No Pertinent Family Hx HAS BEEN OUT OF CUSTODIAL SINCE 2018 VERY NON-COMPLIANT IN ALL ASPECTS OF CARE NEEDS LIFE VEST-=-REFUSES TO WEAR; NSTEMI; EF 10%; LBBB ICD/DEFIBRILLATOR PLACED BY DR. MAGDALENO 06/04/20 SOCIAL HISTORY: -ETOH-RARELY USES -DRUGS--METH, COCAINE, THC. DENIES IV USE-STATES HE SMOKES THEM -NO TOBACCO PAST SURGICAL HISTORY: -CARDIAC CATH 11/2019--NO INTERVENTION -ICD DEFIBRILLATOR PLACED 06/04/[address] MAGDALENO ECHOCARDIOGRAM 05/17/2020 Review of Systems Constitutional: see HPI Respiratory: dyspnea on exertion Cardiovascular: chest pain Physical Exam Physical Exam Vital Signs Vital Signs - First Documented 01/05/22 01/05/22 01/05/22 03:40 09:18 09:19 Temp 39.1 Pulse 89 Resp 26 B/P (MAP) 131/83 (99) Pulse Ox 95 O2 Delivery Room Air O2 Flow Rate 6.00 FiO2 44 Capillary Refill : Less Than 3 Seconds Height, Weight, BMI Height: '" Weight: lbs. oz. kg; 25.58 BMI Method: General Appearance: No Apparent Distress, Chronically ill Eyes: Right Eye Normal Inspection, Right Eye PERRL HEENT: PERRL/EOMI, Normal ENT Inspection, Pharynx Normal, Moist Mucous Membranes Neck: Full Range of Motion, Normal Inspection, Non Tender Respiratory: Chest Non Tender, Lungs Clear, Normal Breath Sounds, No Accessory Muscle Use, No Respiratory Distress Cardiovascular: Regular Rate, Rhythm, No Edema, No Gallop, No JVD, No Murmur, Normal Peripheral Pulses Gastrointestinal: Normal Bowel Sounds, No Organomegaly, No Pulsatile Mass, Non Tender, Soft Back: Normal Inspection, No CVA Tenderness, No Vertebral Tenderness Extremity: Normal Capillary Refill, Normal Inspection, Normal Range of Motion, Non Tender, No Calf Tenderness, No Pedal Edema Neurologic/Psychiatric: Alert, Oriented x3, No Motor/Sensory Deficits, Normal Mood/Affect Skin: Normal Color, Warm/Dry Lymphatic: No Adenopathy Results Results/Procedures Labs Laboratory Tests 01/05/22 03:56 Patient resulted labs reviewed. Assessment/Plan Admission Diagnosis Assessment: Acute exacerbation of congestive heart failure Hypertension Methamphetamine use Plan: IV Lasix Admission Status: Observation Diagnosis/Problems Diagnosis/Problems (1) Shortness of breath Status: Acute (2) Acute systolic CHF (congestive heart failure) (3) Non-compliance Status: Acute (4) Methamphetamine abuse Status: Acute Clinical Quality Measures AMI/AHF: ASA po Prior to arrival: KELY Bingham DO Jan 05, 2022 11:58
[2022-01-05] MEDS ORDERED: HYDROcodone/APAP 5 MG/325 MG (LORTAB) TAB PO PRN (12:15)
[2022-01-05] MEDS ORDERED: LOPERAMIDE 2 MG (IMODIUM) TABLET PO PRN (14:45)
[2022-01-05] MEDS: RT-ALBUTEROL/IPRATROPIUM 3 ML (DUONEB) VIAL INH SCH ×4 (15:50→22:11)
[2022-01-05 16:00] VITALS: BP 110/79
[2022-01-05] MEDS: FUROSEMIDE 40 MG/4 ML INJ (LASIX) IVP SCH (17:59)
[2022-01-05 20:00] VITALS: BP 124/80
[2022-01-06] VITALS: BP 119/87
[2022-01-06] MEDS: RT-ALBUTEROL/IPRATROPIUM 3 ML (DUONEB) VIAL INH SCH ×4 (02:29→14:27)
[2022-01-06 04:00] VITALS: BP 111/77
--- NOTE | 2022-01-06 05:45 | Progress Note - Hospitalist ---
Subjective HPI/CC On Admission Date Seen by Provider: Jan 06, 2022 Time Seen by Provider: 09:00 Chief complaint: Chest pain with shortness of breath HPI: This is a 41-year-old male with known history of congestive heart failure and noncompliance with drug use specifically methamphetamine who presented to the [place] ER with shortness of breath and chest pain. Dr. Rajan's been consulted. He does have defibrillator placed due to end-stage congestive heart failure. Currently he is reporting diarrhea. IV Lasix will be initiated. Objective Exam Vital Signs Vital Signs Date Time Temp Pulse Resp B/P (MAP) Pulse Ox O2 Delivery O2 Flow Rate FiO2 01/06/22 15:25 36.4 74 20 107/65 (79) 91 Room Air 01/06/22 14:27 0.00 01/05/22 09:18 44 Capillary Refill : Less Than 3 Seconds Results/Procedures Lab Laboratory Tests 01/06/22 06:05 Patient resulted labs reviewed. Diagnosis/Problems Diagnosis/Problems (1) Shortness of breath Status: Acute (2) Acute systolic CHF (congestive heart failure) (3) Non-compliance Status: Acute (4) Methamphetamine abuse Status: Acute Clinical Quality Measures AMI/AHF: ASA po Prior to arrival: SRI Bingham DO Jan 06, 2022 05:45
[2022-01-06] MEDS: FUROSEMIDE 40 MG/4 ML INJ (LASIX) IVP SCH (06:17)
[2022-01-06 06:24] LABS: BASOPHILS % (AUTO) 0 % (0-10); MEAN CORPUSCULAR HEMOGLOBIN 29 pg (25-34)
[2022-01-06 06:26] LABS: EOSINOPHILS % (AUTO) 0 % (0-10); HEMATOCRIT 38 % (40-54); HEMOGLOBIN 12.4 g/dL (13.3-17.7); LYMPHOCYTES # (AUTO) 0.8 10^3/uL (1.0-4.0); LYMPHOCYTES % (AUTO) 17 % (12-44); MEAN CORPUSCULAR HGB CONC 33 g/dL (32-36); MEAN CORPUSCULAR VOLUME 89 fL (80-99); MONOCYTES # (AUTO) 0.6 10^3/uL (0.0-1.0); MONOCYTES % (AUTO) 13 % (0-12); NEUTROPHILS # (AUTO) 3.1 10^3/uL (1.8-7.8); NEUTROPHILS % (AUTO) 69 % (42-75); PLATELET COUNT 122 10^3/uL (130-400); WHITE BLOOD COUNT 4.5 10^3/uL (4.3-11.0)
[2022-01-06 06:28] LABS: SMEAR SCAN COMMENT YES
[2022-01-06 06:32] LABS: ALBUMIN 3.3 GM/DL (3.2-4.5); POTASSIUM 3.8 MMOL/L (3.6-5.0)
[2022-01-06 06:33] LABS: CALCIUM 8.1 MG/DL (8.5-10.1)
[2022-01-06 06:35] LABS: TOTAL PROTEIN 7.6 GM/DL (6.4-8.2)
[2022-01-06 06:37] LABS: BILIRUBIN,TOTAL 1.8 MG/DL (0.1-1.0)
[2022-01-06 06:38] LABS: CREATININE SERUM 1.26 MG/DL (0.60-1.30)
[2022-01-06 08:09] VITALS: BP 119/68
[2022-01-06] MEDS: DOCUSATE SODIUM 100 MG (COLACE) CAP PO SCH (08:43)
[2022-01-06] MEDS: ENOXAPARIN 40 MG/0.4 ML (LOVENOX) SYR SC SCH (08:47)
[2022-01-06] MEDS ORDERED: ASPIRIN 81 MG CHEW (CHILDREN'S ASA) PO SCH (09:00)
[2022-01-06] MEDS ORDERED: SPIRONOLACTONE 25 MG (ALDACTONE) TAB PO SCH (09:00)
[2022-01-06] MEDS ORDERED: LOSARTAN 50 MG (COZAAR) TAB PO SCH ×2 (09:00)
[2022-01-06] MEDS ORDERED: AMIODARONE 200 MG (CORDARONE) TAB PO SCH (09:00)
--- NOTE | 2022-01-06 09:44 | Cardiology Progress Note ---
Subjective Date Seen by Provider: Jan 06, 2022 Time Seen by Provider: 08:15 Subjective/Events-last exam Patient sitting in bed, denies any chest pain, continues to have dyspnea. Objective-Cardiology Exam Last Set of Vital Signs Vital Signs 01/05/22 01/06/22 01/06/22 01/06/22 09:18 08:09 09:46 10:37 Temp 38.1 Pulse 78 Resp 18 B/P (MAP) 119/68 (85) Pulse Ox 95 O2 Delivery Nasal Cannula O2 Flow Rate 2.00 FiO2 44 I&O Intake and Output 01/06/22 00:00 Intake Total 2530 ml Output Total 3150 ml Balance -620 ml Intake Oral 2530 ml Output Urine Total 3150 ml # Voids 4 # Bowel Movements 4 Daily Weight Change No General: Alert, Oriented X3, Cooperative, No Acute Distress HEENT: Atraumatic Neck: Supple Lungs: Other (decreased breath sounds bibasilarly) Heart: Regular Rate Abdomen: Normal Bowel Sounds, Soft Skin: No Rashes, No Significant Lesion Neuro: Normal Speech Psych/Mental Status: Mental Status NL, Mood NL Results Lab Laboratory Tests 01/06/22 06:05 A/P-Cardiology Admission Diagnosis CHF VT HTN Assessment/Plan Congestive heart failure, acute on chronic left ventricular systolic dysfunction, nonischemic dilated cardiomyopathy with ejection fraction 15 to 20%. maintained on beta sushma, ARB, Lasix. Continue to diurese and monitor. History of single-chamber ICD implanted in May 2020 for primary prevention, consider upgrade to Bi-V, continue to monitor Mitral regurgitation, moderate to severe mitral regurgitation per echo done August 2021 History of VT, maintained on Amiodarone Hypertension, controlled, continue to monitor. Coronary artery disease, cardiac catheterization was done in November 2019 showing normal coronaries with no significant obstructive disease. History of illicit drug use, Meth (+) on this admission History of noncompliance with medication. Patient was seen and evaluated with Briseyda, examination performed, management plan was discussed, agree with the current scribed note, I made few changes to the note using Italic font Patient was seen at bedside, laying down comfortably Lungs were clear, heart rate is normal Discussed compliance with medication, okay for discharge and maintained on Lasix as an outpatient I will consider upgrading his pacemaker to BiV pacer/ICD as an outpatient Supervisory-Addendum Brief Supervisory Addendum Participated in pt care: history, MDM, physical Personally performed: exam, history, MDM Care discussed with: PA Results interpretation: Verified all documentation BRISEYDA BRADLEY Jan 06, 2022 09:44 FLORA MAGDALENO MD Jan 06, 2022 11:24
[2022-01-06] MEDS ORDERED: FURO40TA4 PO (10:44)
[2022-01-06] MEDS ORDERED: LOPE2CAP PO (10:44)
--- NOTE | 2022-01-06 10:45 | Discharge Summary ---
Discharge Summary Hospital Course Was the Problem List Reviewed?: Yes Problems/Dx: (1) Shortness of breath Status: Acute (2) Acute systolic CHF (congestive heart failure) (3) Non-compliance Status: Acute (4) Methamphetamine abuse Status: Acute Hospital Course Date of Admission: Jan 05, 2022 at 08:15 Admission Diagnosis : Family Physician/Provider: Ricci Bernard MD Date of Discharge: 01/06/22 Discharge Diagnosis: [ ] Hospital Course: Pt had a short hospital course. He was admitted for CHF. Pt has a history of medication non compliance and methamphetamine use. Cardiology recommended continued diuresis. He was set for discharge with improved condition, but overall poor prognosis given his poly substance abuse and medication noncompliance. Labs and Pending Lab Test: Laboratory Tests 01/06/22 06:05: White Blood Count 4.5, Red Blood Count 4.22L, Hemoglobin 12.4L, Hematocrit 38L, Mean Corpuscular Volume 89, Mean Corpuscular Hemoglobin 29, Mean Corpuscular Hemoglobin Concent 33, Red Cell Distribution Width 16.3H, Platelet Count 122L, Mean Platelet Volume 11.0, Immature Granulocyte % (Auto) 0, Neutrophils (%) (Auto) 69, Lymphocytes (%) (Auto) 17, Monocytes (%) (Auto) 13H, Eosinophils (%) (Auto) 0, Basophils (%) (Auto) 0, Neutrophils # (Auto) 3.1, Lymphocytes # (Auto) 0.8L, Monocytes # (Auto) 0.6, Eosinophils # (Auto) 0.0, Basophils # (Auto) 0.0, Immature Granulocyte # (Auto) 0.0, Percent Immature Platelet Fraction 5.7, Sodium Level 126L, Potassium Level 3.8, Chloride Level 91L, Carbon Dioxide Level 26, Anion Gap 9, Blood Urea Nitrogen 13, Creatinine 1.26, Estimat Glomerular Filtration Rate 73, BUN/Creatinine Ratio 10, Glucose Level 98, Calcium Level 8.1L, Corrected Calcium 8.7, Total Bilirubin 1.8H, Aspartate Amino Transf (AST/SGOT) 78H, Alanine Aminotransferase (ALT/SGPT) 33, Alkaline Phosphatase 173H, Total Protein 7.6, Albumin 3.3, Triglycerides Level 93, Cholesterol Level 102, LDL Cholesterol Direct 62, VLDL Cholesterol 19, HDL Cholesterol 23L, Smear Scan YES Microbiology 01/05/22 Urine Culture - Preliminary, Resulted Home Meds Active Hydrocodone-Acetamin 5-325 mg (Hydrocodone/Acetaminophen) 5 Mg-325 Mg Tablet 1 Tab PO Q8H PRN Ondansetron Odt (Ondansetron) 4 Mg Tab.rapdis 4 Mg PO Q6H PRN Cephalexin 500 Mg Tablet 500 Mg PO QID Furosemide 20 Mg Tablet 20 Mg PO DAILY 14 Days Take 6 hours after the AM dose. Children's Aspirin (Aspirin) 81 Mg Tab.chew 81 Mg PO DAILY@0900 Losartan Potassium 50 Mg Tablet 50 Mg PO DAILY Carvedilol 6.25 Mg Tablet 6.25 Mg PO BID 15 Days Amiodarone HCl 200 Mg Tablet 200 Mg PO DAILY Spironolactone 25 Mg Tablet 25 Mg PO DAILY Atorvastatin Calcium 20 Mg Tablet 20 Mg PO HS Reported Ondansetron Odt (Ondansetron) 4 Mg Tab.rapdis 4 Mg SL DAILY PRN Furosemide 40 Mg Tablet 40 Mg PO DAILY Assessment/Pt Instructions PCP in 1 week Discharge Planning: <30 minutes discharge planning Discharge Instructions Discharge Diet: No Restrictions Discharge Physical Examination Vital Signs Vital Signs Date Time Temp Pulse Resp B/P (MAP) Pulse Ox O2 Delivery O2 Flow Rate FiO2 01/06/22 10:37 95 Nasal Cannula 2.00 01/06/22 09:46 78 01/06/22 08:09 38.1 18 119/68 (85) 01/05/22 09:18 44 General Appearance: No Apparent Distress, WD/WN, Chronically ill Allergies: Coded Allergies: No Known Drug Allergies (Unverified , 10/05/19) Discharge Summary Date of Admission Jan 05, 2022 at 08:15 Date of Discharge Discharge Date: Jan 06, 2022 Admission Diagnosis Assessment: Acute exacerbation of congestive heart failure Hypertension Methamphetamine use Plan: IV Lasix Discharge Diagnosis (1) Shortness of breath Status: Acute (2) Acute systolic CHF (congestive heart failure) (3) Non-compliance Status: Acute (4) Methamphetamine abuse Status: Acute Clinical Quality Measures AMI/AHF: ASA po Prior to arrival: SRI Bingham DO Jan 06, 2022 10:45
[2022-01-06 11:41] VITALS: BP 104/66
[2022-01-06 15:25] VITALS: BP 107/65
== END 2022-01-06 16:15 | disposition home or self-care (01) ==
LOC: EDUNIT# 03:29 → ER FS 03:36 → CSD 08:15 → 4TH 01-06 06:43
PROVIDERS: ADMIT Internal Medicine; ATTEND Internal Medicine
DX: I11.0 Hypertensive heart disease with heart failure (principal); I50.23 Acute on chronic systolic (congestive) heart failure; I42.0 Dilated cardiomyopathy; I34.0 Nonrheumatic mitral (valve) insufficiency; I25.10 Atherosclerotic heart disease of native coronary artery without angina pectoris; I45.89 Other specified conduction disorders; I25.2 Old myocardial infarction; F17.200 Nicotine dependence, unspecified, uncomplicated; I47.20 Ventricular tachycardia, unspecified; I27.20 Pulmonary hypertension, unspecified; E78.2 Mixed hyperlipidemia; E87.1 Hypo-osmolality and hyponatremia; Z91.14 Patient's other noncompliance with medication regimen; Z79.899 Other long term (current) drug therapy; Z95.810 Presence of automatic (implantable) cardiac defibrillator; Z28.310 Unvaccinated for COVID-19; Z79.82 Long term (current) use of aspirin
CPT/HCPCS: 36415; 71045; 71275; 80053 ×2; 80061; 80306; 81000; 83735; 83880; 84484; 85007; 85025; 85027; 85379; 85610; 85730; 87088; 87636; 93005 ×2; 93041; 94640 ×2; 94760 ×2; 96372 ×2; 96376 ×2; 99284; G0378 ×2; G0480; 80320

== ENCOUNTER 2022-01-07 17:09 | Emergency (ER) | payer SELFPAY ==
[~2022-01-07] VITALS: Ht 167 cm; Wt 80.0 kg
[~2022-01-07 17:09] MED LIST changes: +LOPE2CAP PO; +ONDA4TAB11 SL
[2022-01-07 17:26] VITALS: BP 111/73
--- NOTE | 2022-01-07 17:44 | ED EENT ---
History of Present Illness General Chief Complaint: Nasal Problems Stated Complaint: NOSE BLEED Nursing Triage Note: Patient has presented to ER with cc of a nose bleed. He reports just sitting in the chair and it started to drip. EMS was called and he was brought to the ER for evaluation. The bleeding seems to have stopped by his arrival to the ER. History of Present Illness Date Seen by Provider: Jan 07, 2022 Time Seen by Provider: 17:15 Initial Comments 41-year-old male with PMH of CHF/mitral regurgitation, on aspirin, is brought in by EMS with complaints of a nose bleed which has been going on for 30 minutes prior to EMS arriving. There was no trigger to the nosebleed. In the ER no bleeding. Denies trauma, nose picking. Allergies and Home Medications Allergies Coded Allergies: No Known Drug Allergies (Unverified , 10/05/19) Patient Home Medication List Home Medication List Reviewed: Yes Amiodarone HCl (Amiodarone HCl) 200 Mg Tablet, 200 MG PO DAILY Prescribed by: RITA VO on 08/12/21 1332 Aspirin (Children's Aspirin) 81 Mg Tab.chew, 81 MG PO DAILY@0900 Prescribed by: RITA VO on 08/12/21 1332 Atorvastatin Calcium (Atorvastatin Calcium) 20 Mg Tablet, 20 MG PO HS Prescribed by: ALEJA TORRES on 03/11/21 1429 Carvedilol (Carvedilol) 6.25 Mg Tablet, 6.25 MG PO BID Prescribed by: RITA VO on 08/12/21 1332 Furosemide (Furosemide) 20 Mg Tablet, 20 MG PO DAILY Prescribed by: AUGUSTINE MASON on 08/20/21 190 Furosemide (Furosemide) 40 Mg Tablet, 40 MG PO DAILY Prescribed by: SRI SANTACRUZ on 01/06/22 1044 Hydrocodone/Acetaminophen (Hydrocodone-Acetamin 5-325 mg) 5 Mg-325 Mg Tablet, 1 TAB PO Q8H PRN for PAIN-MODERATE (5-7) Prescribed by: JANEL MARX on 11/14/211923 Loperamide HCl (Loperamide) 2 Mg Capsule, 2 MG PO NEEDED PRN for DIARRHEA Prescribed by: SRI SANTACRUZ on 01/06/22 1044 Losartan Potassium (Losartan Potassium) 50 Mg Tablet, 50 MG PO DAILY Prescribed by: RITA VO on 08/12/21 1332 Ondansetron (Ondansetron Odt) 4 Mg Tab.rapdis, 4 MG PO Q6H PRN for NAUSEA/VOMITING Prescribed by: JANEL MARX on 11/14/211922 Ondansetron (Ondansetron Odt) 4 Mg Tab.rapdis, 4 MG SL DAILY PRN for NAUSEA/VOMITING, (Reported) Entered as Reported by: ALEJANDRO SZYMANSKI on 01/05/22 1155 Spironolactone (Spironolactone) 25 Mg Tablet, 25 MG PO DAILY Prescribed by: ALEJA TORRES on 03/11/21 1429 Discontinued Medications Cephalexin (Cephalexin) 500 Mg Tablet, 500 MG PO QID Prescribed by: JANEL MARX on 11/14/211922 Review of Systems Review of Systems Constitutional: no symptoms reported Eyes: No Symptoms Reported Ears: No Symptoms Reported Nose: epistaxis Mouth: no symptoms reported Throat: no symptoms reported Respiratory: no symptoms reported Cardiovascular: no symptoms reported Gastrointestinal: no symptoms reported Musculoskeletal: no symptoms reported Skin: no symptoms reported Neurological: No Symptoms Reported Hematologic/Lymphatic: No Symptoms Reported Immunological/Allergic: no symptoms reported Past Cfaxrks-Acgyes-Gbnxdj Hx Patient Social History Tobacco Use?: No Use of E-Cig and/or Vaping dev: No Substance use?: No Alcohol Use?: No Immunizations Up To Date Tetanus Booster (TDap): Unknown First/Initial COVID19 Vaccinat: no Second COVID19 Vaccination Gaudencio: NO Third COVID19 Vaccination Date: no Seasonal Allergies Seasonal Allergies: Yes (USE INHALER) Past Medical History Surgery/Hospitalization HX: icd mdt to left chest; CHF; Substance abuse Surgeries: Yes (CARDIAC CATH 11/2019--NO INTERVENTION;ICD/DEFIBRILLATOR 06/04/20) Cardiac, Defibrillator Respiratory: Yes Asthma Currently Using CPAP: No Currently Using BIPAP: No Cardiac: Yes (CHF-NEEDS LIFEVEST/REFUSES TO WEAR;NSTEMI;EF10%;LBBB;DEFIBRILLATOR 06/04/20) Cardiomyopathy, Chronic Edema/Swelling, Heart Attack, High Cholesterol, Hypertension Neurological: Yes Stroke Sexually Transmitted Disease: Yes (CHLAMYDIA; GONORRHEA 10/05/19) Genitourinary: No Gastrointestinal: No Musculoskeletal: No Endocrine: No HEENT: No Cancer: No Psychosocial: Yes (SUBSTANCE ABUSE) Integumentary: No Blood Disorders: No Family Medical History Asthma AUNT Hypertension MOTHER No Pertinent Family Hx HAS BEEN OUT OF [facility] SINCE 2019 VERY NON-COMPLIANT IN ALL ASPECTS OF CARE NEEDS LIFE VEST-=-REFUSES TO WEAR; NSTEMI; EF 10%; LBBB ICD/DEFIBRILLATOR PLACED BY DR. MAGDALENO 06/04/20 SOCIAL HISTORY: -ETOH-RARELY USES -DRUGS--METH, COCAINE, THC. DENIES IV USE-STATES HE SMOKES THEM -NO TOBACCO PAST SURGICAL HISTORY: -CARDIAC CATH 11/2019--NO INTERVENTION -ICD DEFIBRILLATOR PLACED 06/04/[address] MAGDALENO ECHOCARDIOGRAM 05/17/2020 Physical Exam Vital Signs Vital Signs - First Documented 01/07/22 17:26 Temp 35.9 Pulse 67 Resp 16 B/P (MAP) 111/73 (86) Pulse Ox 97 O2 Delivery Room Air Height, Weight, BMI Height: '" Weight: lbs. oz. kg; 28.00 BMI Method: General Appearance: WD/WN Nose: dried blood (in nusrat nostrils) Mouth/Throat: normal mouth inspection, pharynx normal Neck: non-tender, full range of motion, supple Cardiovascular: regular rate, rhythm Respiratory: lungs clear Gastrointestinal: non tender, soft Neurologic/Psychiatric: alert, oriented x 3 Progress/Results/Core Measures Results/Orders Vital Signs/I&O 01/07/22 17:26 Temp 35.9 Pulse 67 Resp 16 B/P (MAP) 111/73 (86) Pulse Ox 97 O2 Delivery Room Air Blood Pressure Mean: 86 Progress Progress Note : Progress Note 1. EPISTAXIS: - Bleeding stopped in ER -Advised patient not to blow his nose -Advised humidifier, and Acampo mist nasal saline spray which is [id number] -Follow-up with PCP within the next 7 to 10 days -The patient was seen in the ED, and treated appropriately to presentation at a specific point in time. Patient is informed that there is a possibility that disease and illness can evolve and change in acuity rapidly or slowly after patient is discharged from the ER. Precautionary advice given to the patient for immediate return to ER if symptoms worsen or do not resolve, and to seek emergency care sooner rather than later. Pt also advised on the importance of PCP follow up and compliance with management and follow up plan with PCP and/or specialist, as this is part of the management plan. Pt verbally expressed understanding. Departure Impression Primary Impression: Epistaxis Disposition: 01 HOME, SELF-CARE Condition: Stable Departure-Patient Inst. Referrals: AMARJIT CONROY MD (PCP/Family) Primary Care Physician Patient Instructions: Nosebleeds (DC), Humidifiers, Rinsing Out Your Nose With Salt Water Add. Discharge Instructions: -Advised patient not to blow his nose -Advised humidifier, and Acampo mist nasal saline spray which is [id number] -Follow-up with PCP within the next 7 to 10 days All discharge instructions reviewed with patient and/or family. Voiced understanding. MELLO CONLEY MD Jan 07, 2022 17:44
== END 2022-01-07 17:50 | disposition home or self-care (01) ==
LOC: EDUNIT# 17:09 → ER FS 17:10
DX: R04.0 Epistaxis (principal); I50.9 Heart failure, unspecified; Z28.310 Unvaccinated for COVID-19; Z79.82 Long term (current) use of aspirin
CPT/HCPCS: 99281

== ENCOUNTER 2022-02-16 08:54 | Emergency (ER) | payer SELFPAY ==
[~2022-02-16] VITALS: Ht 172.7 cm; Wt 82.9 kg
--- NOTE | 2022-02-16 09:13 | ED Neurological Problem ---
General Stated Complaint: RIGHT SIDED NUMBNESS Source: patient Exam Limitations: no limitations History of Present Illness Date Seen by Provider: Feb 16, 2022 Time Seen by Provider: 08:59 Initial Comments 41-year-old male coming in due to right-sided weakness and numbness. He states it started either last night or the night before that. He is unsure exactly when it started. Denies any pain associated with it. Has been ambulatory and getting around. Does not believe he takes any blood thinners. Denies any falls or hitting his head. Otherwise believes that he has increasing fluid on his lungs. He states he has been out of all of his meds, and refilled them on Thursday. He says he has been trying to take them the best he can, but probably has missed some doses since then. Otherwise denies any other acute complaints including any chest pain, significant shortness of breath, abdominal pain, nausea, vomiting, diarrhea, headache, vision changes, cough, fever, dysuria, or any other concerns. He states he last smoked meth roughly a week ago. Allergies and Home Medications Allergies Coded Allergies: No Known Drug Allergies (Unverified , 10/05/19) Patient Home Medication List Home Medication List Reviewed: Yes Amiodarone HCl (Amiodarone HCl) 200 Mg Tablet, 200 MG PO DAILY Prescribed by: RITA VO on 08/12/21 1332 Aspirin (Children's Aspirin) 81 Mg Tab.chew, 81 MG PO DAILY@0900 Prescribed by: RITA VO on 08/12/21 1332 Atorvastatin Calcium (Atorvastatin Calcium) 20 Mg Tablet, 20 MG PO HS Prescribed by: ALEJA TORRES on 03/11/21 1429 Carvedilol (Carvedilol) 6.25 Mg Tablet, 6.25 MG PO BID Prescribed by: RITA VO on 08/12/21 1332 Furosemide (Furosemide) 20 Mg Tablet, 20 MG PO DAILY Prescribed by: AUGUSTINE MASON on 08/20/21 1904 Furosemide (Furosemide) 40 Mg Tablet, 40 MG PO DAILY Prescribed by: SRI SANTACRUZ on 01/06/22 1044 Hydrocodone/Acetaminophen (Hydrocodone-Acetamin 5-325 mg) 5 Mg-325 Mg Tablet, 1 TAB PO Q8H PRN for PAIN-MODERATE (5-7) Prescribed by: JANEL MARX on 11/14/211923 Loperamide HCl (Loperamide) 2 Mg Capsule, 2 MG PO NEEDED PRN for DIARRHEA Prescribed by: SRI SANTACRUZ on 01/06/22 104 Losartan Potassium (Losartan Potassium) 50 Mg Tablet, 50 MG PO DAILY Prescribed by: RITA VO on 08/12/21 1332 Ondansetron (Ondansetron Odt) 4 Mg Tab.rapdis, 4 MG PO Q6H PRN for NAUSEA/VOMITING Prescribed by: JANEL MARX on 11/14/211922 Ondansetron (Ondansetron Odt) 4 Mg Tab.rapdis, 4 MG SL DAILY PRN for NAUSEA /VOMITING, (Reported) Entered as Reported by: ALEJANDRO SZYMANSKI on 01/05/22 1155 Spironolactone (Spironolactone) 25 Mg Tablet, 25 MG PO DAILY Prescribed by: ALEJA TORRES on 03/11/21 1429 Review of Systems Review of Systems Constitutional: No fever Eyes: No Symptoms Reported Ears, Nose, Mouth, Throat: no symptoms reported Respiratory: no symptoms reported Cardiovascular: no symptoms reported Gastrointestinal: no symptoms reported Genitourinary: no symptoms reported Musculoskeletal: no symptoms reported Skin: no symptoms reported Psychiatric/Neurological: See HPI Endocrine: No Symptoms Reported Hematologic/Lymphatic: No Symptoms Reported All Other Systems Reviewed Negative Unless Noted: Yes Past Mbomisr-Tnnsxv-Ghnlsm Hx Patient Social History Substance use?: Yes Substance type: Methamphetamine Immunizations Up To Date Tetanus Booster (TDap): Unknown First/Initial COVID19 Vaccinat: no Second COVID19 Vaccination Gaudencio: NO Third COVID19 Vaccination Date: no Seasonal Allergies Seasonal Allergies: Yes (USE INHALER) Past Medical History Surgery/Hospitalization HX: icd mdt to left chest; CHF; Substance abuse Surgeries: Yes (CARDIAC CATH 11/2019--NO INTERVENTION;ICD/DEFIBRILLATOR 06/04/20) Cardiac, Defibrillator Respiratory: Yes Asthma Currently Using CPAP: No Currently Using BIPAP: No Cardiac: Yes (CHF-NEEDS LIFEVEST/REFUSES TO WEAR;NSTEMI;EF10%;LBBB;DEFIBRILLATOR 06/04/20) Cardiomyopathy, Chronic Edema/Swelling, Heart Attack, High Cholesterol, Hypertension Neurological: Yes Stroke Sexually Transmitted Disease: Yes (CHLAMYDIA; GONORRHEA 07/29/20) Genitourinary: No Gastrointestinal: No Musculoskeletal: No Endocrine: No HEENT: No Cancer: No Psychosocial: Yes (SUBSTANCE ABUSE) Integumentary: No Blood Disorders: No Family Medical History Asthma AUNT Hypertension MOTHER No Pertinent Family Hx HAS BEEN OUT OF LONG-TERM SINCE 2018 VERY NON-COMPLIANT IN ALL ASPECTS OF CARE NEEDS LIFE VEST-=-REFUSES TO WEAR; NSTEMI; EF 10%; LBBB ICD/DEFIBRILLATOR PLACED BY DR. ENCISO 06/04/20 SOCIAL HISTORY: -ETOH-RARELY USES -DRUGS--METH, COCAINE, THC. DENIES IV USE-STATES HE SMOKES THEM -NO TOBACCO PAST SURGICAL HISTORY: -CARDIAC CATH 11/2019--NO INTERVENTION -ICD DEFIBRILLATOR PLACED 06/04/[address] ENCISO ECHOCARDIOGRAM 05/17/2020 Physical Exam Vital Signs Vital Signs - First Documented 02/16/22 09:00 Temp 35.6 Pulse 70 Resp 20 B/P (MAP) 113/78 (90) Pulse Ox 99 O2 Delivery Room Air Capillary Refill : Height, Weight, BMI Height: '" Weight: lbs. oz. kg; 28.00 BMI Method: General Appearance: WD/WN HEENT: PERRL/EOMI, normal ENT inspection, pharynx normal Neck: non-tender, full range of motion, supple, normal inspection Respiratory: chest non-tender, no respiratory distress, no accessory muscle use, crackles (faint in the bases) Cardiovascular: regular rate, rhythm, no edema, no murmur Gastrointestinal: normal bowel sounds, non tender, soft; No distended, No guarding, No rebound Back: normal inspection, no CVA tenderness, no vertebral tenderness Extremities: normal range of motion, non-tender, normal inspection, no pedal edema, no calf tenderness, normal capillary refill 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, no motor/sensory deficits, alert, normal mood/affect, oriented x 3 Crainal Nerves: normal hearing, normal speech, PERRL Coordination/Gait: normal finger to nose, normal gait Motor/Sensory: no motor deficit, no sensory deficit, no pronator drift Skin: normal color, warm/dry Lymphatic: no adenopathy Stroke Onset of Symptoms Date of Onset of Symptoms: Feb 14, 2022 Time of Symptom Onset: 22:00 Onset of Symptoms: Yes NIH Stroke Scale Assessment Select: Initial Level of Consciousness: 0=Alert (0), Level of Consciousness- Questions: 0=Answers both month/age (0), LOC Commands: 0=Performs both tasks (0), Gaze: Normal (0), Visual Henderson: 0=No visual loss (0), Facial Movement (Facial Paresis): 0=Normal symmetrical mnt (0), Motor Function-Arms Right: 0=No drift (0), Motor Function-Arms Left: 0=No drift (0), Motor Function-Legs Right: 0=No drift (0), Motor Function-Legs Left: 0=No drift (0), Limb Ataxia: 0=Absent (0), Sensory: 0=Normal:no loss (0), Best Language: 0=No aphasia (0), Dysarthria: 0=Normal (0), Extinction & Inattention: 0=No abnormality (0), Total: 0 Stroke Thrombolytic Exclusion Improving Symptoms: Yes IV - TPa Received IV - TPa Procedure Performed?: No Progress/Results/Core Measures Results/Orders Lab Results Laboratory Tests Test 02/16/22 09:15 02/16/22 09:19 02/16/22 09:34 Range/Units White Blood Count 4.8 4.3-11.0 10^3/uL Red Blood Count 4.49 4.30-5.52 10^6/uL Hemoglobin 13.2 L 13.3-17.7 g/dL Hematocrit 41 40-54 % Mean Corpuscular Volume 90 80-99 fL Mean Corpuscular Hemoglobin 29 25-34 pg Mean Corpuscular Hemoglobin Concent 33 32-36 g/dL Red Cell Distribution Width 16.9 H 10.0-14.5 % Platelet Count 176 130-400 10^3/uL Mean Platelet Volume 10.0 9.0-12.2 fL Immature Granulocyte % (Auto) 0 % Neutrophils (%) (Auto) 67 42-75 % Lymphocytes (%) (Auto) 17 12-44 % Monocytes (%) (Auto) 10 0-12 % Eosinophils (%) (Auto) 6 0-10 % Basophils (%) (Auto) 1 0-10 % Neutrophils # (Auto) 3.2 1.8-7.8 10^3/uL Lymphocytes # (Auto) 0.8 L 1.0-4.0 10^3/uL Monocytes # (Auto) 0.5 0.0-1.0 10^3/uL Eosinophils # (Auto) 0.3 0.0-0.3 10^3/uL Basophils # (Auto) 0.0 0.0-0.1 10^3/uL Immature Granulocyte # (Auto) 0.0 0.0-0.1 10^3/uL Prothrombin Time 16.3 H 12.2-14.7 SEC INR Comment 1.3 0.8-1.4 Activated Partial Thromboplast Time 32 24-35 SEC Sodium Level 134 L 135-145 MMOL/L Potassium Level 3.5 L 3.6-5.0 MMOL/L Chloride Level 93 L 98-107 MMOL/L Carbon Dioxide Level 32 21-32 MMOL/L Anion Gap 9 5-14 MMOL/L Blood Urea Nitrogen 5 L 7-18 MG/DL Creatinine 1.04 0.60-1.30 MG/DL Estimat Glomerular Filtration Rate 91 BUN/Creatinine Ratio 5 Glucose Level 91 70-105 MG/DL Calcium Level 8.8 8.5-10.1 MG/DL Corrected Calcium 9.4 8.5-10.1 MG/DL Magnesium Level 1.5 L 1.6-2.4 MG/DL Total Bilirubin 2.2 H 0.1-1.0 MG/DL Aspartate Amino Transf (AST/SGOT) 48 H 5-34 U/L Alanine Aminotransferase (ALT/SGPT) 20 0-55 U/L Alkaline Phosphatase 210 H 40-136 U/L Troponin I < 0.30 <0.30 NG/ML Pro-B-Type Natriuretic Peptide 3273.0 H <125.0 PG/ML Total Protein 7.8 6.4-8.2 GM/DL Albumin 3.2 3.2-4.5 GM/DL Urine Color YELLOW Urine Clarity CLEAR Urine pH 8.0 5-9 Urine Specific Jackson 1.020 1.016-1.022 Urine Protein 2+ H NEGATIVE Urine Glucose (UA) NEGATIVE NEGATIVE Urine Ketones NEGATIVE NEGATIVE Urine Nitrite NEGATIVE NEGATIVE Urine Bilirubin NEGATIVE NEGATIVE Urine Urobilinogen 1.0 < = 1.0 MG/DL Urine Leukocyte Esterase NEGATIVE NEGATIVE Urine RBC (Auto) NEGATIVE NEGATIVE Urine RBC 2-5 H /HPF Urine WBC NONE /HPF Urine Squamous Epithelial Cells NONE /HPF Urine Crystals NONE /LPF Urine Bacteria TRACE /HPF Urine Casts NONE /LPF Urine Mucus LARGE H /LPF Urine Culture Indicated NO Urine Opiates Screen NEGATIVE NEGATIVE Urine Oxycodone Screen NEGATIVE NEGATIVE Urine Methadone Screen NEGATIVE NEGATIVE Urine Propoxyphene Screen NEGATIVE NEGATIVE Urine Barbiturates Screen NEGATIVE NEGATIVE Ur Tricyclic Antidepressants Screen NEGATIVE NEGATIVE Urine Phencyclidine Screen NEGATIVE NEGATIVE Urine Amphetamines Screen NEGATIVE NEGATIVE Urine Methamphetamines Screen NEGATIVE NEGATIVE Urine Benzodiazepines Screen NEGATIVE NEGATIVE Urine Cocaine Screen NEGATIVE NEGATIVE Urine Cannabinoids Screen NEGATIVE NEGATIVE Glucometer 74 70-110 MG/DL My Orders Orders - MENG LAIRD MD Cbc With Automated Diff (02/16/22 09:08) Protime With Inr (02/16/22 09:08) Partial Thromboplastin Time (02/16/22 09:08) Comprehensive Metabolic Panel (02/16/22 09:08) Troponin I Fs (02/16/22 09:08) Ua Culture If Indicated (02/16/22 09:08) Chest 1 View Ap/Pa Only (02/16/22 09:08) Ekg Tracing (02/16/22 09:08) Accucheck Stat ONCE (02/16/22 09:08) Ed Iv/Invasive Line Start (02/16/22 09:08) Vital Signs Stroke Patient Q15M (02/16/22 09:08) Ct Head Wo-R/O Stroke (02/16/22 09:08) O2 (02/16/22 09:08) Intake & Output 06,14,22 (02/16/22 09:08) Monitor-Rhythm Ecg Trace Only (02/16/22 09:08) Dysphagia Screening Tool Q10MX1 (02/16/22 09:08) Magnesium (02/16/22 09:08) Probnp Fs (02/16/22 09:08) Drug Screen Stat (Urine) (02/16/22 09:16) Magnesium 1 Gm/100 Ml Ivpb (Magnesium Rosales (02/16/22 09:48) Furosemide Injection (Lasix Injection) (02/16/22 10:00) Potassium Chloride (Tablet) (K Dur Table (02/16/22 10:00) Vital Signs/I&O 02/16/22 09:00 Temp 35.6 Pulse 70 Resp 20 B/P (MAP) 113/78 (90) Pulse Ox 99 O2 Delivery Room Air Progress Progress Note : Progress Note 41-year-old male presenting for right-sided weakness and him stating he believes he has too much fluid on him. ABCs were intact and vitals were stable on presentation. Physical exam including an NIH obtained. His NIH is 0 with no neuro findings on my exam. CT head with no acute findings. Chest x-ray with cardiomegaly which is stable and no acute findings of heart failure exacerbation. His BNP is elevated around 3000. Typically he is around 2000. EKG appears similar to prior with no acute ischemic changes. Troponin is negative. We will give him IV magnesium, p.o. potassium, and IV Lasix here in the ER. He is breathing comfortably even when sitting relatively flat. His oxygen is around 100% on room air. I do not see any indications for admission for his heart failure exacerbation. We will try to diurese him some in the ER, and I will have him take an extra dose of his Lasix for the next couple of days. 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 If things worsen he should come back to the ER. Initial ECG Impression Date: Feb 16, 2022 Initial ECG Impression Time: 09:11 Initial ECG Rate: 70 Initial ECG Rhythm: Normal Sinus Comment Wide QRS with a left bundle branch block, left axis deviation, left atrial argument, no STEMI, appears similar to prior EKG Diagnostic Imaging Diagonstic Imaging: Xray (chest), CT (head) Comments [facility], [place] NAME: CHERRIE CHUNG [facility] REC#: [id number] PT STATUS: REG ER : 1980 PHYSICIAN: MENG LAIRD MD ADMIT DATE: 02/16/22/ER FS Draft Date of Exam:02/16/22 CT HEAD WO-R/O STROKE PROCEDURE: CT head wo r/o stroke. TECHNIQUE: Multiple contiguous axial images were obtained through the brain without the use of intravenous contrast. Auto Exposure Controls were utilized during the CT exam to meet ALARA standards for radiation dose reduction. INDICATION: Right-sided weakness and numbness. COMPARISON: None available. FINDINGS: There are no CT findings of acute intracranial hemorrhage. There is no evidence of intracranial mass effect or shift. There is no hydrocephalus. There is no abnormal extra-axial collection. [place] and white matter volumes are appropriate. There are no findings of a territorial loss of fairbanks-white differentiation demonstrated. There is no evidence of cerebral edema. The basilar cisterns are patent. The posterior fossa demonstrates no acute process. There is no asymmetric hyperdense blood vessel evident. The mastoid air cells appear clear. There is moderate mucosal thickening on the right and mild mucosal thickening within the left maxillary sinus. There is no air-fluid level. The orbital contents are unremarkable. IMPRESSION: 1. No CT evidence of territorial loss of fairbanks-white differentiation or low density within the basal ganglia or amanda to suggest acute ischemia by CT. 2. No findings of hemorrhage, mass effect, hydrocephalus, or vasogenic edema. 3. No evidence of a hyperdense blood vessel. 4. Paranasal sinus disease. The findings were call to the Emergency Department at 9:34 AM. Dictated on workstation # [id number] Dict: 02/16/22928 Trans: 02/16/22938 TERESA [id number] Interpreted by: ROE PEARSON MD Electronically signed by: [facility] [place] NAME: CHERRIE CHUNG [facility] REC#: [id number] PT STATUS: REG ER : 1980 PHYSICIAN: MENG LAIRD MD ADMIT DATE: 02/16/22/ER FS Draft Date of Exam:02/16/22 CHEST 1 VIEW AP/PA ONLY EXAMINATION: Chest, 1 view. HISTORY: Weakness. Altered mental status. COMPARISON: 01/05/2022. FINDINGS: The lung volumes are normal. No focal consolidation is seen. No large pleural effusion or pneumothorax is seen. Stable cardiomegaly with stable left pectoral ICD. No acute osseous abnormality is seen. IMPRESSION: Stable cardiomegaly. No overt pulmonary edema. Dictated on workstation # [id number] Dict: 02/16/22933 Trans: 02/16/22936 TERESA [id number] Interpreted by: GUNJAN LEWIS DO Electronically signed by: Departure Impression Primary Impression: Acute on chronic HFrEF (heart failure with reduced ejection fraction) Disposition: 01 HOME, SELF-CARE Condition: Stable Departure-Patient Inst. Decision time for Depature: 10:45 Referrals: AMARJIT CONROY MD (PCP/Family) Primary Care Physician Patient Instructions: Heart Failure ED Add. Discharge Instructions: I want you to take an extra dose of your Lasix (furosemide) every day for the next couple of days including an extra dose tonight. Please call Dr. Enciso to schedule an appointment for follow-up within the next week to be sure you are improving. Work/School Note: Work Release Form Date Seen in the Emergency Department: Feb 16, 2022 Return to Work: Feb 17, 2022 Restrictions: No Restrictions MENG LAIRD MD Feb 16, 2022 09:13
[2022-02-16 09:17] LABS: BASOPHILS % (AUTO) 1 % (0-10); EOSINOPHILS # (AUTO) 0.3 10^3/uL (0.0-0.3); EOSINOPHILS % (AUTO) 6 % (0-10); HEMATOCRIT 41 % (40-54); HEMOGLOBIN 13.2 g/dL (13.3-17.7); LYMPHOCYTES # (AUTO) 0.8 10^3/uL (1.0-4.0); LYMPHOCYTES % (AUTO) 17 % (12-44); MEAN CORPUSCULAR HEMOGLOBIN 29 pg (25-34); MEAN CORPUSCULAR HGB CONC 33 g/dL (32-36); MEAN CORPUSCULAR VOLUME 90 fL (80-99); MONOCYTES # (AUTO) 0.5 10^3/uL (0.0-1.0); MONOCYTES % (AUTO) 10 % (0-12); NEUTROPHILS # (AUTO) 3.2 10^3/uL (1.8-7.8); NEUTROPHILS % (AUTO) 67 % (42-75); PLATELET COUNT 176 10^3/uL (130-400); WHITE BLOOD COUNT 4.8 10^3/uL (4.3-11.0)
[2022-02-16 09:19] LABS: BILIRUBIN,URINE NEGATIVE (NEGATIVE); CLARITY,URINE CLEAR; COLOR,URINE YELLOW; GLUCOSE, URINE (UA) NEGATIVE (NEGATIVE); KETONES,URINE NEGATIVE (NEGATIVE); LEUKOCYTE ESTERASE ,URINE NEGATIVE (NEGATIVE); NITRITE,URINE NEGATIVE (NEGATIVE); PROTEIN,URINE 2+ (NEGATIVE)
[2022-02-16 09:22] LABS: BACTERIA,URINE TRACE /HPF
[2022-02-16 09:28] LABS: INR 1.3 (0.8-1.4); PROTHROMBIN TIME PATIENT 16.3 SEC (12.2-14.7)
[2022-02-16 09:31] LABS: AMPHETAMINE SCREEN, URINE NEGATIVE (NEGATIVE); BARBITURATE SCREEN URINE NEGATIVE (NEGATIVE); BENZODIAZEPINES SCREEN URINE NEGATIVE (NEGATIVE); CANNABINOID SCREEN, URINE NEGATIVE (NEGATIVE); COCAINE SCREEN URINE NEGATIVE (NEGATIVE); METHADONE STAT NEGATIVE (NEGATIVE); OPIATE SCREEN URINE NEGATIVE (NEGATIVE); OXYCODONE STAT NEGATIVE (NEGATIVE); PROPOXYPHENE STAT NEGATIVE (NEGATIVE); TRICYCLIC ANTIDEPRESSANTS SCRE NEGATIVE (NEGATIVE)
--- NOTE | 2022-02-16 09:37 | Diagnostic Imaging Report ---
EXAMINATION: Chest, 1 view. HISTORY: Weakness. Altered mental status. COMPARISON: 01/05/2022. FINDINGS: The lung volumes are normal. No focal consolidation is seen. No large pleural effusion or pneumothorax is seen. Stable cardiomegaly with stable left pectoral ICD. No acute osseous abnormality is seen. IMPRESSION: Stable cardiomegaly. No overt pulmonary edema. Dictated by: Dictated on workstation # [id number]
--- NOTE | 2022-02-16 09:39 | Diagnostic Imaging Report ---
PROCEDURE: CT head wo r/o stroke. TECHNIQUE: Multiple contiguous axial images were obtained through the brain without the use of intravenous contrast. Auto Exposure Controls were utilized during the CT exam to meet ALARA standards for radiation dose reduction. INDICATION: Right-sided weakness and numbness. COMPARISON: None available. FINDINGS: There are no CT findings of acute intracranial hemorrhage. There is no evidence of intracranial mass effect or shift. There is no hydrocephalus. There is no abnormal extra-axial collection. [place] and white matter volumes are appropriate. There are no findings of a territorial loss of fairbanks-white differentiation demonstrated. There is no evidence of cerebral edema. The basilar cisterns are patent. The posterior fossa demonstrates no acute process. There is no asymmetric hyperdense blood vessel evident. The mastoid air cells appear clear. There is moderate mucosal thickening on the right and mild mucosal thickening within the left maxillary sinus. There is no air-fluid level. The orbital contents are unremarkable. IMPRESSION: 1. No CT evidence of territorial loss of fairbanks-white differentiation or low density within the basal ganglia or amanda to suggest acute ischemia by CT. 2. No findings of hemorrhage, mass effect, hydrocephalus, or vasogenic edema. 3. No evidence of a hyperdense blood vessel. 4. Paranasal sinus disease. The findings were call to the Emergency Department at 9:34 AM. Dictated by: Dictated on workstation # [id number]
[2022-02-16 09:44] LABS: ALANINE AMINOTRANSFERASE 20 U/L (0-55); ALBUMIN 3.2 GM/DL (3.2-4.5); ALKALINE PHOSPHATASE 210 U/L (40-136); BILIRUBIN,TOTAL 2.2 MG/DL (0.1-1.0); BUN/CREATININE RATIO 5; CALCIUM 8.8 MG/DL (8.5-10.1); CARBON DIOXIDE 32 MMOL/L (21-32); CHLORIDE 93 MMOL/L (98-107); CREATININE SERUM 1.04 MG/DL (0.60-1.30); GFR ESTIMATED 91; GLUCOSE 91 MG/DL (70-105); MAGNESIUM 1.5 MG/DL (1.6-2.4); POTASSIUM 3.5 MMOL/L (3.6-5.0); SODIUM 134 MMOL/L (135-145); TOTAL PROTEIN 7.8 GM/DL (6.4-8.2)
[2022-02-16] MEDS ORDERED: MAGNESIUM 1 GM/100 ML IVPB 100 ML IV STA (09:48)
[2022-02-16] MEDS ORDERED: KCL 20 MEQ TAB (K-DUR) PO ONE (10:00)
[2022-02-16] MEDS ORDERED: FUROSEMIDE 40 MG/4 ML INJ (LASIX) IVP ONE (10:00)
[2022-02-16 11:00] VITALS: BP 123/71
== END 2022-02-16 11:00 | disposition home or self-care (01) ==
LOC: EDUNIT# 08:54 → ER FS 08:58
DX: I11.0 Hypertensive heart disease with heart failure (principal); I50.23 Acute on chronic systolic (congestive) heart failure; Z98.61 Coronary angioplasty status
CPT/HCPCS: 36415; 70450; 71045; 80053; 80306; 81000; 82947; 83735; 83880; 84484; 85025; 85610; 85730; 93005; 93041

== ENCOUNTER 2022-02-26 23:38 | Emergency (ER) | payer SELFPAY ==
[~2022-02-26] VITALS: Ht 172.7 cm; Wt 88.0 kg
[2022-02-27] MEDS ORDERED: SPIRONOLACTONE 100 MG (ALDACTONE) TABLET PO ONE
[2022-02-27] MEDS ORDERED: ACETAMINOPHEN 500 MG TAB (TYLENOL) PO ONE
[2022-02-27] MEDS ORDERED: FUROSEMIDE 20 MG (LASIX) TAB PO ONE
[2022-02-27] MEDS ORDERED: LOSA50TA63 PO (00:03)
[2022-02-27] MEDS ORDERED: CARV6.252 PO (00:03)
[2022-02-27] MEDS ORDERED: FURO-124 PO (00:03)
[2022-02-27] MEDS ORDERED: SPIR25TA5 PO (00:03)
[2022-02-27] MEDS ORDERED: AMIO100T4 PO (00:03)
--- NOTE | 2022-02-27 00:03 | ED General ---
General Chief Complaint: General Problems/Pain Stated Complaint: RETAINING FLUID IN LUNGS Source of Information: Patient Exam Limitations: No Limitations History of Present Illness Date Seen by Provider: Feb 26, 2022 Time Seen by Provider: 23:44 Initial Comments 42-year-old male with past medical history most notable for HFrEF as well as polysubstance abuse coming in after he states he lost all of his medications and believes he has some increasing swelling in his legs from not taking his Lasix for the past 4 days. Denies any chest pain, shortness of breath, abdominal pain, nausea, vomiting, diarrhea, weakness, numbness, headache, vision changes, or any other concerns. He states he just wants a dose of his Lasix tonight, and he wants to go home after that. Allergies and Home Medications Allergies Coded Allergies: No Known Drug Allergies (Unverified , 10/05/19) Patient Home Medication List Home Medication List Reviewed: Yes Amiodarone HCl (Amiodarone HCl) 200 Mg Tablet, 200 MG PO DAILY Prescribed by: RITA VO on 08/12/21 1332 Aspirin (Children's Aspirin) 81 Mg Tab.chew, 81 MG PO DAILY@0900 Prescribed by: RITA VO on 08/12/21 1332 Atorvastatin Calcium (Atorvastatin Calcium) 20 Mg Tablet, 20 MG PO HS Prescribed by: ALEJA TORRES on 03/11/21 1429 Carvedilol (Carvedilol) 6.25 Mg Tablet, 6.25 MG PO BID Prescribed by: RITA VO on 08/12/21 1332 Furosemide (Furosemide) 20 Mg Tablet, 20 MG PO DAILY Prescribed by: AUGUSTINE MASON on 08/20/21 190 Furosemide (Furosemide) 40 Mg Tablet, 40 MG PO DAILY Prescribed by: SRI SANTACRUZ on 01/06/22 1044 Hydrocodone/Acetaminophen (Hydrocodone-Acetamin 5-325 mg) 5 Mg-325 Mg Tablet, 1 TAB PO Q8H PRN for PAIN-MODERATE (5-7) Prescribed by: JANEL MARX on 11/14/211923 Loperamide HCl (Loperamide) 2 Mg Capsule, 2 MG PO NEEDED PRN for DIARRHEA Prescribed by: SRI SANTACRUZ on 01/06/22 1044 Losartan Potassium (Losartan Potassium) 50 Mg Tablet, 50 MG PO DAILY Prescribed by: RITA VO on 08/12/21 1332 Ondansetron (Ondansetron Odt) 4 Mg Tab.rapdis, 4 MG PO Q6H PRN for NAUSEA/VOMITING Prescribed by: JANEL MARX on 11/14/21 192 Ondansetron (Ondansetron Odt) 4 Mg Tab.rapdis, 4 MG SL DAILY PRN for NAUSEA/VOMITING, (Reported) Entered as Reported by: ALEJANDRO SZYMANSKI on 01/05/22 1155 Spironolactone (Spironolactone) 25 Mg Tablet, 25 MG PO DAILY Prescribed by: ALEJA TORRES on 03/11/21 1429 Review of Systems Review of Systems Constitutional: No fever EENTM: no symptoms reported Respiratory: no symptoms reported Cardiovascular: see HPI Gastrointestinal: no symptoms reported Genitourinary: no symptoms reported Musculoskeletal: see HPI Skin: no symptoms reported Psychiatric/Neurological: No Symptoms Reported Hematologic/Lymphatic: No Symptoms Reported Immunological/Allergic: no symptoms reported All Other Systems Reviewed Negative Unless Noted: Yes Past Zbfujdl-Wzibck-Fwzcrc Hx Patient Social History Substance use?: Yes Immunizations Up To Date Tetanus Booster (TDap): Unknown First/Initial COVID19 Vaccinat: no Second COVID19 Vaccination Gaudencio: NO Third COVID19 Vaccination Date: no Seasonal Allergies Seasonal Allergies: Yes (USE INHALER) Past Medical History Surgery/Hospitalization HX: icd mdt to left chest; CHF; Substance abuse, CVA Surgeries: Yes (CARDIAC CATH 11/2019--NO INTERVENTION;ICD/DEFIBRILLATOR 06/04/20) Cardiac, Defibrillator Respiratory: Yes Asthma Currently Using CPAP: No Currently Using BIPAP: No Cardiac: Yes (CHF-NEEDS LIFEVEST/REFUSES TO WEAR;NSTEMI;EF10%;LBBB;DEFIBRILLATOR 06/04/20) Cardiomyopathy, Chronic Edema/Swelling, Heart Attack, High Cholesterol, Hypertension Neurological: Yes Stroke Sexually Transmitted Disease: Yes (CHLAMYDIA; GONORRHEA 10/05/19) Genitourinary: No Gastrointestinal: No Musculoskeletal: No Endocrine: No HEENT: No Cancer: No Psychosocial: Yes (SUBSTANCE ABUSE) Integumentary: No Blood Disorders: No Family Medical History Asthma AUNT Hypertension MOTHER No Pertinent Family Hx HAS BEEN OUT OF ALF SINCE 2019 VERY NON-COMPLIANT IN ALL ASPECTS OF CARE NEEDS LIFE VEST-=-REFUSES TO WEAR; NSTEMI; EF 10%; LBBB ICD/DEFIBRILLATOR PLACED BY DR. MAGDALENO 06/04/20 SOCIAL HISTORY: -ETOH-RARELY USES -DRUGS--METH, COCAINE, THC. DENIES IV USE-STATES HE SMOKES THEM -NO TOBACCO PAST SURGICAL HISTORY: -CARDIAC CATH 11/2019--NO INTERVENTION -ICD DEFIBRILLATOR PLACED 06/04/[address] MAGDALENO ECHOCARDIOGRAM 05/17/2020 Physical Exam Vital Signs Capillary Refill : Height, Weight, BMI Height: '" Weight: lbs. oz. kg; 27.00 BMI Method: General Appearance: No Apparent Distress, WD/WN Eyes: Bilateral Eye Normal Inspection HEENT: PERRL/EOMI, Normal ENT Inspection, Pharynx Normal Neck: Full Range of Motion, Normal Inspection, Non Tender, Supple Respiratory: Chest Non Tender, Lungs Clear, Normal Breath Sounds, No Accessory Muscle Use, No Respiratory Distress Cardiovascular: Regular Rate, Rhythm, Normal Peripheral Pulses Gastrointestinal: Normal Bowel Sounds, Non Tender, Soft; No Distended, No Guarding Extremity: Normal Capillary Refill, Normal Range of Motion, Non Tender, No Calf Tenderness, Pedal Edema (Trace) Neurologic/Psychiatric: Alert, No Motor/Sensory Deficits, Normal Mood/Affect Skin: Normal Color, Warm/Dry Lymphatic: No Adenopathy Progress/Results/Core Measures Suspected Sepsis SIRS Temperature: Pulse: Respiratory Rate: Blood Pressure / Mean: Results/Orders My Orders Orders - MENG LAIRD MD Furosemide Tablet (Lasix Tablet) (02/27/22 00:00) Spironolactone Tablet (Aldactone Tablet) (02/27/22 00:00) Acetaminophen Tablet (Tylenol Tablet) (02/27/22 00:00) Vital Signs/I&O Capillary Refill : Progress Note : Progress Note 42-year-old male with above history coming in stating he lost the back of his medications 4 days ago and needs a dose of Lasix for his lower extremity swelling. Denies any acute complaints otherwise at this time including no chest pain or shortness of breath. No clinical signs of severe heart failure exacerbation given his oxygen saturations 100% on room air, breathing comfortably, lungs clear. We will give him a dose and I will write for 2 weeks of his main medications. After that, I stated he needs to follow-up with his PCP. Departure Impression Primary Impression: Medication refill Additional Impression: Chronic HFrEF (heart failure with reduced ejection fraction) Disposition: 01 HOME, SELF-CARE Condition: Stable Departure-Patient Inst. Decision time for Depature: 00:01 Referrals: AMARJIT CONROY MD (PCP/Family) Primary Care Physician Patient Instructions: Heart Failure ED Add. Discharge Instructions: We have sent 2 weeks of medications to your pharmacy, you need to follow-up with your regular doctor to get a refill after that. Scripts Carvedilol (Carvedilol) 6.25 Mg Tablet 6.25 MG PO BID for 14 Days, #28 TAB Prov: MENG LAIRD MD 02/27/22 Amiodarone HCl (Amiodarone HCl) 100 Mg Tablet 100 MG PO DAILY for 14 Days, #14 TAB Prov: MENG LAIRD MD 02/27/22 Losartan Potassium (Losartan Potassium) 50 Mg Tablet 50 MG PO DAILY for 14 Days, #14 TAB Prov: MENG LAIRD MD 02/27/22 Furosemide (Lasix) 40 Mg Tablet 40 MG PO DAILY for 14 Days, #14 TAB Prov: MENG LAIRD MD 02/27/22 Spironolactone (Spironolactone) 25 Mg Tablet 25 MG PO DAILY for 14 Days, #14 TAB Prov: MENG LAIRD MD 02/27/22 MENG LAIRD MD Feb 27, 2022 00:03
[2022-02-27 00:08] VITALS: BP 152/91
[2022-02-27] MEDS ORDERED: KCL 20 MEQ TAB (K-DUR) PO ONE (00:15)
== END 2022-02-27 00:08 | disposition home or self-care (01) ==
LOC: EDUNIT# 23:38 → ER FS 23:42
DX: Z76.0 Encounter for issue of repeat prescription (principal); I11.0 Hypertensive heart disease with heart failure; I50.22 Chronic systolic (congestive) heart failure
CPT/HCPCS: 99283

== ENCOUNTER 2022-05-25 19:44 | Emergency (ER) | payer OTHER ==
[~2022-05-25] VITALS: Ht 177.8 cm; Wt 86.2 kg
[~2022-05-25 19:44] MED LIST changes: +AMIO100T4 PO; +FURO-124 PO
[2022-05-25] MEDS ORDERED: FUROSEMIDE 40 MG/4 ML INJ (LASIX) IVP STA (19:52)
--- NOTE | 2022-05-25 20:02 | ED Dyspnea ---
General Chief Complaint: Respiratory Problems Stated Complaint: SOA Source of Information: Patient, Other (Attendant from [facility]) History of Present Illness Date Seen by Provider: May 25, 2022 Time Seen by Provider: 19:45 Initial Comments 42-year-old male presenting with complaints of increased shortness of breath and difficulty breathing. He reports having a history of heart failure and has a defibrillator in his chest. He follows with Dr. Enciso for cardiology and Dr. CONROY for primary care. He states he has been having shortness of breath for the last several days that felt that it was worse tonight. He has been in group home for the last several days. He reports he is continuing to take his medications. He cannot list or say what his medicines are other than he feels like they are not helping. He also has been having nasal congestion and cough with bringing up white-colored phlegm. He is anxious and gets upset that he is being asked questions about his medical history and current symptoms. He is able to speak in complete sentences but when asked to take slow deep breaths for auscultating his lungs he starts to hyperventilate instead of taking deep breaths. Timing/Duration: Increasing (Over the last several days) Severity: Severe Activities at Onset: None Prior Episodes/Possible Cause: Chronic Episodes Modifying Factors: Worse With Activity Associated Symptoms: Anxiety, Cough, Edema Allergies and Home Medications Allergies Coded Allergies: No Known Drug Allergies (Unverified , 10/05/19) Patient Home Medication List Home Medication List Reviewed: Yes Amiodarone HCl (Amiodarone HCl) 200 Mg Tablet, 200 MG PO DAILY Prescribed by: RITA VO on 08/12/21 133 Amiodarone HCl (Amiodarone HCl) 100 Mg Tablet, 100 MG PO DAILY Prescribed by: MENG LAIRD on 02/27/22 0003 Aspirin (Children's Aspirin) 81 Mg Tab.chew, 81 MG PO DAILY@0900 Prescribed by: RITA VO on 08/12/21 133 Atorvastatin Calcium (Atorvastatin Calcium) 20 Mg Tablet, 20 MG PO HS Prescribed by: ALEJA TORRES on 03/11/21 1429 Carvedilol (Carvedilol) 6.25 Mg Tablet, 6.25 MG PO BID Prescribed by: RITA VO on 08/12/21 1332 Carvedilol (Carvedilol) 6.25 Mg Tablet, 6.25 MG PO BID Prescribed by: MENG LAIRD on 02/27/222 Furosemide (Furosemide) 20 Mg Tablet, 20 MG PO DAILY Prescribed by: AUGUSTINE MASON on 08/20/211903 Furosemide (Furosemide) 40 Mg Tablet, 40 MG PO DAILY Prescribed by: SRI SANTACRUZ on 01/06/221043 Furosemide (Lasix) 40 Mg Tablet, 40 MG PO DAILY Prescribed by: MENG LAIRD on 02/27/222 Furosemide (Furosemide) 40 Mg Tablet, 40 MG PO DAILY Prescribed by: DEVONTE COON on 05/25/222045 Hydrocodone/Acetaminophen (Hydrocodone-Acetamin 5-325 mg) 5 Mg-325 Mg Tablet, 1 TAB PO Q8H PRN for PAIN-MODERATE (5-7) Prescribed by: JANEL MARX on 11/14/211923 Loperamide HCl (Loperamide) 2 Mg Capsule, 2 MG PO NEEDED PRN for DIARRHEA Prescribed by: SRI SANTACRUZ on 01/06/221043 Losartan Potassium (Losartan Potassium) 50 Mg Tablet, 50 MG PO DAILY Prescribed by: RITA VO on 08/12/211331 Losartan Potassium (Losartan Potassium) 50 Mg Tablet, 50 MG PO DAILY Prescribed by: MENG LAIRD on 02/27/222 Ondansetron (Ondansetron Odt) 4 Mg Tab.rapdis, 4 MG PO Q6H PRN for NAUSEA/VOMITING Prescribed by: JANEL MARX on 11/14/211922 Ondansetron (Ondansetron Odt) 4 Mg Tab.rapdis, 4 MG SL DAILY PRN for NAUSEA/VOMITING, (Reported) Entered as Reported by: ALEJANDRO SZYMANSKI on 01/05/22 1155 Spironolactone (Spironolactone) 25 Mg Tablet, 25 MG PO DAILY Prescribed by: ALEJA TORRES on 03/11/21 1429 Spironolactone (Spironolactone) 25 Mg Tablet, 25 MG PO DAILY Prescribed by: MENG LAIRD on 02/27/222 Review of Systems Review of Systems Constitutional: No chills, No fever EENTM: nose congestion Respiratory: cough, phlegm, short of breath; No stridor Cardiovascular: chest pain (tightness), edema Gastrointestinal: no symptoms reported Genitourinary: no symptoms reported Musculoskeletal: no symptoms reported Skin: No rash Psychiatric/Neurological: Anxiety Past Ucbpucx-Zzriwb-Frqrjs Hx Patient Social History Tobacco Use?: Yes Substance use?: Yes Substance type: Methamphetamine, Other (cocaine) Immunizations Up To Date Tetanus Booster (TDap): Unknown First/Initial COVID19 Vaccinat: no Second COVID19 Vaccination Gaudencio: no Third COVID19 Vaccination Date: no Seasonal Allergies Seasonal Allergies: Yes (USE INHALER) Past Medical History Surgery/Hospitalization HX: icd mdt to left chest; CHF; Substance abuse, CVA Surgeries: Yes (CARDIAC CATH 11/2019--NO INTERVENTION;ICD/DEFIBRILLATOR 06/04/20) Cardiac, Defibrillator Respiratory: Yes Asthma Currently Using CPAP: No Currently Using BIPAP: No Cardiac: Yes (CHF-NEEDS LIFEVEST/REFUSES TO WEAR;NSTEMI;EF10%;LBBB;DEFIBRILLATOR 06/04/20) Cardiomyopathy, Chronic Edema/Swelling, Heart Attack, High Cholesterol, Hypertension Neurological: Yes Stroke Sexually Transmitted Disease: Yes (CHLAMYDIA; GONORRHEA 10/05/19) Genitourinary: No Gastrointestinal: No Musculoskeletal: No Endocrine: No HEENT: No Cancer: No Psychosocial: Yes (SUBSTANCE ABUSE) Integumentary: No Blood Disorders: No Family Medical History Asthma AUNT Hypertension MOTHER No Pertinent Family Hx HAS BEEN OUT OF SHELTER SINCE 2019 VERY NON-COMPLIANT IN ALL ASPECTS OF CARE NEEDS LIFE VEST-=-REFUSES TO WEAR; NSTEMI; EF 10%; LBBB ICD/DEFIBRILLATOR PLACED BY DR. ENCISO 06/04/20 SOCIAL HISTORY: -ETOH-RARELY USES -DRUGS--METH, COCAINE, THC. DENIES IV USE-STATES HE SMOKES THEM -NO TOBACCO PAST SURGICAL HISTORY: -CARDIAC CATH 11/2019--NO INTERVENTION -ICD DEFIBRILLATOR PLACED 06/04/[address] ENCISO ECHOCARDIOGRAM 05/17/2020 Physical Exam Vital Signs Vital Signs - First Documented 05/25/22 19:44 Temp 36.6 Pulse 84 Resp 26 B/P (MAP) 155/100 (118) Pulse Ox 95 O2 Delivery Room Air Capillary Refill : Height, Weight, BMI Height: '" Weight: lbs. oz. kg; 29.00 BMI Method: General Appearance: Anxious, Chronically ill, Other (patient getting upset at having to answer questions for history and exam) HEENT: PERRL/EOMI, Pharynx Normal Neck: Full Range of Motion, Normal Inspection, Non Tender, Supple Respiratory: Chest Non Tender, No Accessory Muscle Use, No Respiratory Distress, Decreased Breath Sounds Cardiovascular: Regular Rate, Rhythm, Normal Peripheral Pulses Extremity: Pedal Edema (trace bilateral LE edema) Neurologic/Psychiatric: Alert, Oriented x3, lumber racker II-XII Norm as Tested Skin: Normal Color, Warm/Dry Progress/Results/Core Measures Results/Orders Lab Results Laboratory Tests Test 05/25/22 19:56 05/25/22 20:10 Range/Units White Blood Count 4.0 L 4.3-11.0 10^3/uL Red Blood Count 4.47 4.30-5.52 10^6/uL Hemoglobin 13.1 L 13.3-17.7 g/dL Hematocrit 42 40-54 % Mean Corpuscular Volume 93 80-99 fL Mean Corpuscular Hemoglobin 29 25-34 pg Mean Corpuscular Hemoglobin Concent 32 32-36 g/dL Red Cell Distribution Width 16.1 H 10.0-14.5 % Platelet Count 142 130-400 10^3/uL Mean Platelet Volume 10.6 9.0-12.2 fL Immature Granulocyte % (Auto) 0 % Neutrophils (%) (Auto) 69 42-75 % Lymphocytes (%) (Auto) 11 L 12-44 % Monocytes (%) (Auto) 14 H 0-12 % Eosinophils (%) (Auto) 5 0-10 % Basophils (%) (Auto) 1 0-10 % Neutrophils # (Auto) 2.7 1.8-7.8 10^3/uL Lymphocytes # (Auto) 0.4 L 1.0-4.0 10^3/uL Monocytes # (Auto) 0.6 0.0-1.0 10^3/uL Eosinophils # (Auto) 0.2 0.0-0.3 10^3/uL Basophils # (Auto) 0.0 0.0-0.1 10^3/uL Immature Granulocyte # (Auto) 0.0 0.0-0.1 10^3/uL Prothrombin Time 15.8 H 12.2-14.7 SEC INR Comment 1.2 0.8-1.4 Activated Partial Thromboplast Time 33 24-35 SEC Sodium Level 134 L 135-145 MMOL/L Potassium Level 4.1 3.6-5.0 MMOL/L Chloride Level 97 L 98-107 MMOL/L Carbon Dioxide Level 29 21-32 MMOL/L Anion Gap 8 5-14 MMOL/L Blood Urea Nitrogen 10 7-18 MG/DL Creatinine 1.22 0.60-1.30 MG/DL Estimat Glomerular Filtration Rate 75 BUN/Creatinine Ratio 8 Glucose Level 123 H 70-105 MG/DL Calcium Level 9.2 8.5-10.1 MG/DL Corrected Calcium 9.4 8.5-10.1 MG/DL Magnesium Level 2.0 1.6-2.4 MG/DL Total Bilirubin 2.5 H 0.1-1.0 MG/DL Aspartate Amino Transf (AST/SGOT) 60 H 5-34 U/L Alanine Aminotransferase (ALT/SGPT) 21 0-55 U/L Alkaline Phosphatase 252 H 40-136 U/L Troponin I < 0.30 <0.30 NG/ML Pro-B-Type Natriuretic Peptide 1597.0 H <125.0 PG/ML Total Protein 8.9 H 6.4-8.2 GM/DL Albumin 3.8 3.2-4.5 GM/DL Lipase 19 8-78 U/L Influenza Type A (RT-PCR) Not Detected Not Detecte Influenza Type B (RT-PCR) Not Detected Not Detecte SARS-CoV-2 RNA (RT-PCR) Not Detected Not Detecte Urine Color YELLOW Urine Clarity CLEAR Urine pH 7.5 5-9 Urine Specific [place] 1.020 1.016-1.022 Urine Protein 2+ H NEGATIVE Urine Glucose (UA) NEGATIVE NEGATIVE Urine Ketones NEGATIVE NEGATIVE Urine Nitrite NEGATIVE NEGATIVE Urine Bilirubin NEGATIVE NEGATIVE Urine Urobilinogen >=8.0 < = 1.0 MG/DL Urine Leukocyte Esterase NEGATIVE NEGATIVE Urine RBC (Auto) TRACE-I H NEGATIVE Urine RBC 2-5 H /HPF Urine WBC RARE /HPF Urine Squamous Epithelial Cells 0-2 /HPF Urine Crystals NONE /LPF Urine Bacteria NEGATIVE /HPF Urine Casts NONE /LPF Urine Mucus NEGATIVE /LPF Urine Culture Indicated NO Urine Opiates Screen NEGATIVE NEGATIVE Urine Oxycodone Screen NEGATIVE NEGATIVE Urine Methadone Screen NEGATIVE NEGATIVE Urine Propoxyphene Screen NEGATIVE NEGATIVE Urine Barbiturates Screen NEGATIVE NEGATIVE Ur Tricyclic Antidepressants Screen NEGATIVE NEGATIVE Urine Phencyclidine Screen NEGATIVE NEGATIVE Urine Amphetamines Screen NEGATIVE NEGATIVE Urine Methamphetamines Screen POSITIVE H NEGATIVE Urine Benzodiazepines Screen NEGATIVE NEGATIVE Urine Cocaine Screen NEGATIVE NEGATIVE Urine Cannabinoids Screen POSITIVE H NEGATIVE My Orders Orders - DEVONTE COON MD Cbc With Automated Diff (05/25/22:52) Magnesium (05/25/22:52) Chest 1 View Ap/Pa Only (05/25/22:) Ekg Tracing (05/25/22) Comprehensive Metabolic Panel (05/25/22) Protime With Inr (05/25/22:) Partial Thromboplastin Time (05/25/22) O2 (05/25/22:52) Monitor-Rhythm Ecg Trace Only (05/25/22) Ed Iv/Invasive Line Start (05/25/22:52) Lipase (05/25/22:) Troponin I Fs (05/25/22) Probnp Fs (05/25/22:52) Ua Culture If Indicated (05/25/22:52) Drug Screen Stat (Urine) (05/25/22:52) Covid 19 Inhouse Test (05/25/22:52) Influenza A And B By Pcr (05/25/22:52) Isolation Central Supply Req (05/25/22:52) Furosemide Injection (Lasix Injection) (05/25/22:52) Vital Signs/I&O 05/25/22 05/25/22 19:44 21:00 Temp 36.6 Pulse 84 78 Resp 26 20 B/P (MAP) 155/100 (118) 137/64 Pulse Ox 95 96 O2 Delivery Room Air Room Air Progress Progress Note #1: Progress Note Potential diagnosis of COVID, influenza, pneumonia, CHF exacerbation, anxiety. Obtain nasal swab for COVID and influenza. Peripheral IV access and send labs for complete blood count, comprehensive metabolic profile, coagulation factors, proBNP, troponin, magnesium. Obtain urinalysis and a urine drug screen as he has a history of substance abuse and noncompliance with medication treatment. Obtain electrocardiogram to document his rate and rhythm and look for ischemia. 1 view chest x-ray to look for signs of heart failure, pneumonia, infiltrate, effusion. Placed on cardiac engine monitor and heart rate is in the 70s and a sinus rhythm on my initial interpretation. We will administer an additional dose of Lasix 80 mg IV x1 to try and help with his shortness of breath in case any of this is from CHF exacerbation. He has an oxygen saturation of 98% on room air and his blood pressure is 159/92 with heart rate regular and in the 70s to 80s. Progress Note #2: Time: 20:18 Progress Note On my personal interpretation of his 1 view chest x-ray he has stable cardiomegaly and defibrillator device in place. He has mild increased pulmonary vascular congestion in the central region compared to his last chest x-ray in February 2022. I did not appreciate any acute effusion or infiltrate. His blood count was not showing high white blood cell count or low hemoglobin for anemia. His comprehensive metabolic profile appeared stable without acute significant abnormality to account for his shortness of breath. His troponin was less than 0.3 which would be a delta troponin since he complains of chest tightness that has been going on for several days. His proBNP was slightly elevated to 1597. This is down from February 2022 where he was almost 3500 for his proBNP. He had a negative COVID, influenza swab. His urinalysis was not showing infection. He had marijuana and methamphetamine showing up on his urine drug screen. With his history of chronic substance abuse and noncompliance this likely was contributing to his shortness of breath. He certainly could have a viral infection causing him to have more cough and congestion as well. He was having good diuresis here in the emergency department with the dose of Lasix. He continues have an oxygen saturation of 97 to 100% on room air. His blood pressure after Lasix is 137/64. His heart rate remains sinus and in the 70s to 80s on his cardiac telemetry. We will have him increase his Lasix dose for the next few days and follow-up with Dr. Enciso in cardiology this week if having continued complaints. Progress Note #3: Time: 20:38 Progress Note I reviewed the radiologist report on the chest x-ray which showed stable cardiomegaly and mild central pulmonary vascular congestion for CHF. No infi ltrate or pleural effusion was seen. We will proceed with plan as above. The group home did get back with us about his medication list and he is taking 40 mg of Lasix once a night already so with the 40 mg I wrote for we will begin in addition to what he is taking currently. So for the next 5 days would have him take 80 mg of Lasix at the group home and call Dr. Enciso's office in the morning about follow-up. When reviewing results with the patient he was breathing much easier and did have some coughing where he seemed to be hacking and forcing himself to cough and did have some pink-tinged sputum that he coughed up. From review of his past electronic medical record he has coughed hard enough to bring up some blood-tinged sputum before. He continues to have stable vital signs with oxygen saturation 97 to 99% on room air. He had improvement of his blood pressure but that he was being discharged as well. Initial ECG Impression Date: May 25, 2022 Initial ECG Impression Time: 19:59 Initial ECG Rate: 79 Initial ECG Rhythm: Normal Sinus Initial ECG Comparisson: Unchanged (02/16/2022) Comment On my interpretation of his electrocardiogram he shows sinus rhythm with a heart rate of 79 bpm. MI interval 181 ms. QT interval 466 ms with a QTc interval 501 ms. He has no acute ST elevation. He has intraventricular conduction delay. He has inferior Q waves for possible old [place]. There is no significant change from his prior tracings. Diagnostic Imaging Diagonstic Imaging: Xray Plain Films/CT/US/NM/MRI: chest Comments NAME: CHERRIE CHUNG [employer] REC#: [id number] PT STATUS: REG ER : 1980 PHYSICIAN: DEVONTE COON MD ADMIT DATE: 05/25/22/ER FS Draft Date of Exam:05/25/22 CHEST 1 VIEW AP/PA ONLY INDICATION: Short of breath. COMPARISONS: 02/16/2022. FINDINGS: Single view chest shows cardiomegaly with mild central venous congestion. No consolidation is seen. There is no effusion or pneumothorax. There is a single-lead ICD placed by a left subclavian approach. Soft tissues and bony thorax are unremarkable. IMPRESSION: Development of mild congestive heart failure with cardiomegaly. No acute consolidation is seen. Dictated on workstation # [id number] Dict: 05/25/222025 Trans: 05/25/222032 [facility] [id number] Interpreted by: JUSTO HERRERA MD Electronically signed by: Reviewed: Reviewed by Me Departure Impression Primary Impression: Chronic HFrEF (heart failure with reduced ejection fraction) Disposition: 01 HOME, SELF-CARE Condition: Stable Departure-Patient Inst. Decision time for Depature: 20:47 Referrals: AMARJIT CONROY MD (PCP/Family) Primary Care Physician FLORA ENCISO MD Patient Instructions: Heart Failure ED, Shortness of Breath, Adult ED Add. Discharge Instructions: Take furosemide 40 mg daily for the next 5 days to try and help with your shortness of breath. Your chest x-ray was not showing any infection or significant amount of heart failure or fluid overload. Your test for COVID and influenza was negative. Call Dr. Enciso's office with cardiology in the morning to have a follow-up this week about your heart failure and trouble breathing. They may need to adjust your medications long-term to help manage your heart failure. All discharge instructions reviewed with patient and/or family. Voiced understanding. Scripts Furosemide (Furosemide) 40 Mg Tablet 40 MG PO DAILY for Heart Failure for 5 Days, #5 TAB 0 Refills Prov: DEVONTE CONO MD 05/25/22 DEVONTE COON MD May 25, 2022 20:02
[2022-05-25 20:05] LABS: BASOPHILS % (AUTO) 1 % (0-10); EOSINOPHILS # (AUTO) 0.2 10^3/uL (0.0-0.3); EOSINOPHILS % (AUTO) 5 % (0-10); HEMATOCRIT 42 % (40-54); HEMOGLOBIN 13.1 g/dL (13.3-17.7); LYMPHOCYTES # (AUTO) 0.4 10^3/uL (1.0-4.0); LYMPHOCYTES % (AUTO) 11 % (12-44); MEAN CORPUSCULAR HEMOGLOBIN 29 pg (25-34); MEAN CORPUSCULAR HGB CONC 32 g/dL (32-36); MEAN CORPUSCULAR VOLUME 93 fL (80-99); MEAN PLATELET VOLUME 10.6 fL (9.0-12.2); MONOCYTES # (AUTO) 0.6 10^3/uL (0.0-1.0); MONOCYTES % (AUTO) 14 % (0-12); NEUTROPHILS # (AUTO) 2.7 10^3/uL (1.8-7.8); NEUTROPHILS % (AUTO) 69 % (42-75); PLATELET COUNT 142 10^3/uL (130-400)
[2022-05-25 20:16] LABS: BILIRUBIN,URINE NEGATIVE (NEGATIVE); CLARITY,URINE CLEAR; COLOR,URINE YELLOW; GLUCOSE, URINE (UA) NEGATIVE (NEGATIVE); KETONES,URINE NEGATIVE (NEGATIVE); LEUKOCYTE ESTERASE ,URINE NEGATIVE (NEGATIVE); NITRITE,URINE NEGATIVE (NEGATIVE); PH,URINE 7.5 (5-9); PROTEIN,URINE 2+ (NEGATIVE)
[2022-05-25 20:16] LABS: INR 1.2 (0.8-1.4); PROTHROMBIN TIME PATIENT 15.8 SEC (12.2-14.7)
[2022-05-25 20:19] LABS: BACTERIA,URINE NEGATIVE /HPF; WBC,URINE RARE /HPF
[2022-05-25 20:20] LABS: SQUAMOUS EPITHELIAL CELL,UR 0-2 /HPF
[2022-05-25 20:28] LABS: AMPHETAMINE SCREEN, URINE NEGATIVE (NEGATIVE); BENZODIAZEPINES SCREEN URINE NEGATIVE (NEGATIVE); CANNABINOID SCREEN, URINE POSITIVE (NEGATIVE); COCAINE SCREEN URINE NEGATIVE (NEGATIVE)
[2022-05-25 20:29] LABS: CALCIUM 9.2 MG/DL (8.5-10.1); CREATININE SERUM 1.22 MG/DL (0.60-1.30); POTASSIUM 4.1 MMOL/L (3.6-5.0)
[2022-05-25 20:29] LABS: BARBITURATE SCREEN URINE NEGATIVE (NEGATIVE); METHADONE STAT NEGATIVE (NEGATIVE); OPIATE SCREEN URINE NEGATIVE (NEGATIVE); OXYCODONE STAT NEGATIVE (NEGATIVE); PROPOXYPHENE STAT NEGATIVE (NEGATIVE); TRICYCLIC ANTIDEPRESSANTS SCRE NEGATIVE (NEGATIVE)
[2022-05-25 20:30] LABS: ALBUMIN 3.8 GM/DL (3.2-4.5); BILIRUBIN,TOTAL 2.5 MG/DL (0.1-1.0); TOTAL PROTEIN 8.9 GM/DL (6.4-8.2)
--- NOTE | 2022-05-25 20:35 | Diagnostic Imaging Report ---
INDICATION: Short of breath. COMPARISONS: 02/16/2022. FINDINGS: Single view chest shows cardiomegaly with mild central venous congestion. No consolidation is seen. There is no effusion or pneumothorax. There is a single-lead ICD placed by a left subclavian approach. Soft tissues and bony thorax are unremarkable. IMPRESSION: Development of mild congestive heart failure with cardiomegaly. No acute consolidation is seen. Dictated by: Dictated on workstation # [id number]
[2022-05-25] MEDS ORDERED: FURO40TA4 PO (20:46)
[2022-05-25 21:00] VITALS: BP 137/64
== END 2022-05-25 21:00 | disposition home or self-care (01) ==
LOC: EDUNIT# 19:44 → ER FS 19:46
DX: I11.0 Hypertensive heart disease with heart failure (principal); I50.22 Chronic systolic (congestive) heart failure; Z28.310 Unvaccinated for COVID-19; Z95.810 Presence of automatic (implantable) cardiac defibrillator; Z20.822 Contact with and (suspected) exposure to COVID-19
CPT/HCPCS: 36415; 71045; 80053; 80306; 81000; 83690; 83735; 83880; 84484; 85025; 85610; 85730; 87636; 93005; 93041

== ENCOUNTER 2022-10-05 22:28 | Emergency (ER) | payer SELFPAY ==
[~2022-10-05] VITALS: Ht 172.7 cm; Wt 86.0 kg
[~2022-10-05 22:28] MED LIST changes: +POTA-185 PO; -POTA10TA PO
--- NOTE | 2022-10-05 22:47 | ED GU-Male ---
General Chief Complaint: - Reproductive Stated Complaint: BACK PAIN Nursing Triage Note: PT AMB TO ED BY POV WITH C/O PAIN IN LOWER ABD RADIATING TO TESTICLES. PT REPORTS HE HAS BEEN OUT OF HIS LASIX X 2 DAYS. PT REPORTS HE HAS BEEN UNABLE TO URINATE FOR SEVERAL HOURS AND IS HAVING A LOT OF PAIN AND PRESSURE. PT ALSO C/O LOWER BACK PAIN. History of Present Illness Date Seen by Provider: Oct 05, 2022 Time Seen by Provider: 22:47 Initial Comments 42-year-old male presents with lower abdominal pain that he reports is radiating to his testicles. Patient reports that he is having fluid buildup in his abd omen because he has been out of his Lasix for 2 days. Reports that he is having difficulty urinating and has been able to urinate for couple hours and is having a lot of pain and pain and pressure. Allergies and Home Medications Allergies Coded Allergies: No Known Drug Allergies (Unverified , 10/05/19) Patient Home Medication List Home Medication List Reviewed: Yes Amiodarone HCl (Amiodarone HCl) 200 Mg Tablet, 200 MG PO DAILY Prescribed by: RITA VO on 08/12/21 1332 Amiodarone HCl (Amiodarone HCl) 100 Mg Tablet, 100 MG PO DAILY Prescribed by: MENG LAIRD on 02/27/22 0003 Aspirin (Children's Aspirin) 81 Mg Tab.chew, 81 MG PO DAILY@0900 Prescribed by: RITA VO on 08/12/21 1332 Atorvastatin Calcium (Atorvastatin Calcium) 20 Mg Tablet, 20 MG PO HS Prescribed by: ALEJA TORRES on 03/11/21 1429 Carvedilol (Carvedilol) 6.25 Mg Tablet, 6.25 MG PO BID Prescribed by: RITA VO on 08/12/21 1332 Carvedilol (Carvedilol) 6.25 Mg Tablet, 6.25 MG PO BID Prescribed by: MENG LAIRD on 02/27/22 0003 Furosemide (Furosemide) 20 Mg Tablet, 20 MG PO DAILY Prescribed by: AUGUSTINE MASON on 08/20/21 1904 Furosemide (Furosemide) 40 Mg Tablet, 40 MG PO DAILY Prescribed by: SRI SANTACRUZ on 01/06/22 1044 Furosemide (Lasix) 40 Mg Tablet, 40 MG PO DAILY Prescribed by: MENG LAIRD on 02/27/22 0003 Furosemide (Furosemide) 40 Mg Tablet, 40 MG PO DAILY Prescribed by: DEVONTE COON on 05/25/222045 Hydrocodone/Acetaminophen (Hydrocodone-Acetamin 5-325 mg) 5 Mg-325 Mg Tablet, 1 TAB PO Q8H PRN for PAIN-MODERATE (5-7) Prescribed by: JANEL MARX on 11/14/211923 Loperamide HCl (Loperamide) 2 Mg Capsule, 2 MG PO NEEDED PRN for DIARRHEA Prescribed by: SRI SANTACRUZ on 01/06/22 1044 Losartan Potassium (Losartan Potassium) 50 Mg Tablet, 50 MG PO DAILY Prescribed by: RITA VO on 08/12/21 133 Losartan Potassium (Losartan Potassium) 50 Mg Tablet, 50 MG PO DAILY Prescribed by: MENG LAIRD on 02/27/222 Ondansetron (Ondansetron Odt) 4 Mg Tab.rapdis, 4 MG PO Q6H PRN for NAUSEA/VOMITING Prescribed by: JANEL MARX on 11/14/211922 Ondansetron (Ondansetron Odt) 4 Mg Tab.rapdis, 4 MG SL DAILY PRN for NAUSEA/VOMITING, (Reported) Entered as Reported by: ALEJANDRO SZYMANSKI on 01/05/22 1155 Spironolactone (Spironolactone) 25 Mg Tablet, 25 MG PO DAILY Prescribed by: ALEJA TORRES on 03/11/21 1429 Spironolactone (Spironolactone) 25 Mg Tablet, 25 MG PO DAILY Prescribed by: MENG LAIRD on 02/27/22 0003 Review of Systems Review of Systems Constitutional: No chills, No fever Respiratory: no symptoms reported Cardiovascular: no symptoms reported Gastrointestinal: see HPI Genitourinary: see HPI Musculoskeletal: see HPI Skin: no symptoms reported Endocrine: No Symptoms Reported Past Uatppjq-Orapti-Gcdozx Hx Patient Social History Tobacco Use?: No Use of E-Cig and/or Vaping dev: No Substance use?: Yes Substance type: Marijuana Substance frequency: Couple times a week Alcohol Use?: No Pt feels they are or have been: No Immunizations Up To Date Tetanus Booster (TDap): Unknown First/Initial COVID19 Vaccinat: DENIES Second COVID19 Vaccination Gaudencio: NONE Third COVID19 Vaccination Date: NONE Seasonal Allergies Seasonal Allergies: Yes (USE INHALER) Past Medical History Surgery/Hospitalization HX: icd mdt to left chest; CHF; Substance abuse, CVA Surgeries: Yes (CARDIAC CATH 11/2019--NO INTERVENTION;ICD/DEFIBRILLATOR 06/04/20) Cardiac, Defibrillator Respiratory: Yes Asthma Currently Using CPAP: No Currently Using BIPAP: No Cardiac: Yes (CHF-NEEDS LIFEVEST/REFUSES TO WEAR;NSTEMI;EF10%;LBBB;DEFIBRILLATOR 06/04/20) Cardiomyopathy, Chronic Edema/Swelling, Heart Attack, High Cholesterol, Hypertension Neurological: Yes Stroke Sexually Transmitted Disease: Yes (CHLAMYDIA; GONORRHEA 10/05/19) Genitourinary: No Gastrointestinal: No Musculoskeletal: No Endocrine: No HEENT: No Cancer: No Psychosocial: Yes (SUBSTANCE ABUSE) Integumentary: No Blood Disorders: No Family Medical History Asthma AUNT Hypertension MOTHER No Pertinent Family Hx HAS BEEN OUT OF HALF-WAY SINCE 2018 VERY NON-COMPLIANT IN ALL ASPECTS OF CARE NEEDS LIFE VEST-=-REFUSES TO WEAR; NSTEMI; EF 10%; LBBB ICD/DEFIBRILLATOR PLACED BY DR. MAGDALENO 06/04/20 SOCIAL HISTORY: -ETOH-RARELY USES -DRUGS--METH, COCAINE, THC. DENIES IV USE-STATES HE SMOKES THEM -NO TOBACCO PAST SURGICAL HISTORY: -CARDIAC CATH 11/2019--NO INTERVENTION -ICD DEFIBRILLATOR PLACED 06/04/[address] MAGDALENO ECHOCARDIOGRAM 05/17/2020 Physical Exam Vital Signs Vital Signs - First Documented 10/05/22 22:34 Temp 36.6 Pulse 70 Resp 18 B/P (MAP) 125/81 (96) Pulse Ox 99 O2 Delivery Room Air Capillary Refill : Less Than 3 Seconds Height, Weight, BMI Height: '" Weight: lbs. oz. kg; 28.00 BMI Method: General Appearance: no apparent distress Cardiovascular: normal peripheral pulses, regular rate, rhythm Respiratory: lungs clear, normal breath sounds, no respiratory distress, no accessory muscle use Gastrointestinal: soft, tenderness (mild diffuse ) Extremities: normal range of motion Neurologic/Psychiatric: alert, normal mood/affect, oriented x 3 Skin: normal color, warm/dry Progress/Results/Core Measures Suspected Sepsis SIRS Temperature: Pulse: 70 Respiratory Rate: 18 Laboratory Tests 10/05/22 23:07: White Blood Count 4.9 Blood Pressure 125 /81 Mean: 96 Laboratory Tests 10/05/22 23:07: Creatinine 1.22, Platelet Count 140, Total Bilirubin 1.9H Results/Orders Lab Results Laboratory Tests Test 10/05/22 23:07 10/05/22 23:55 Range/Units White Blood Count 4.9 4.3-11.0 10^3/uL Red Blood Count 4.25 L 4.30-5.52 10^6/uL Hemoglobin 13.0 L 13.3-17.7 g/dL Hematocrit 41 40-54 % Mean Corpuscular Volume 97 80-99 fL Mean Corpuscular Hemoglobin 31 25-34 pg Mean Corpuscular Hemoglobin Concent 32 32-36 g/dL Red Cell Distribution Width 15.4 H 10.0-14.5 % Platelet Count 140 130-400 10^3/uL Mean Platelet Volume 10.3 9.0-12.2 fL Immature Granulocyte % (Auto) 0 % Neutrophils (%) (Auto) 75 42-75 % Lymphocytes (%) (Auto) 11 L 12-44 % Monocytes (%) (Auto) 10 0-12 % Eosinophils (%) (Auto) 3 0-10 % Basophils (%) (Auto) 1 0-10 % Neutrophils # (Auto) 3.7 1.8-7.8 10^3/uL Lymphocytes # (Auto) 0.5 L 1.0-4.0 10^3/uL Monocytes # (Auto) 0.5 0.0-1.0 10^3/uL Eosinophils # (Auto) 0.2 0.0-0.3 10^3/uL Basophils # (Auto) 0.0 0.0-0.1 10^3/uL Immature Granulocyte # (Auto) 0.0 0.0-0.1 10^3/uL Percent Immature Platelet Fraction 5.8 0.0-7.6 % Sodium Level 137 135-145 MMOL/L Potassium Level 3.6 3.6-5.0 MMOL/L Chloride Level 102 98-107 MMOL/L Carbon Dioxide Level 25 21-32 MMOL/L Anion Gap 10 5-14 MMOL/L Blood Urea Nitrogen 11 7-18 MG/DL Creatinine 1.22 0.60-1.30 MG/DL Estimat Glomerular Filtration Rate 75 BUN/Creatinine Ratio 9 Glucose Level 100 70-105 MG/DL Calcium Level 9.2 8.5-10.1 MG/DL Corrected Calcium 9.4 8.5-10.1 MG/DL Total Bilirubin 1.9 H 0.1-1.0 MG/DL Aspartate Amino Transf (AST/SGOT) 51 H 5-34 U/L Alanine Aminotransferase (ALT/SGPT) 30 0-55 U/L Alkaline Phosphatase 176 H 40-136 U/L B-Type Natriuretic Peptide 1536.6 H <100.0 PG/ML Total Protein 7.8 6.4-8.2 GM/DL Albumin 3.7 3.2-4.5 GM/DL Urine Color YELLOW Urine Clarity CLEAR Urine pH 6.5 5-9 Urine Specific [place] 1.010 L 1.016-1.022 Urine Protein NEGATIVE NEGATIVE Urine Glucose (UA) NEGATIVE NEGATIVE Urine Ketones NEGATIVE NEGATIVE Urine Nitrite NEGATIVE NEGATIVE Urine Bilirubin NEGATIVE NEGATIVE Urine Urobilinogen 0.2 < = 1.0 MG/DL Urine Leukocyte Esterase NEGATIVE NEGATIVE Urine RBC (Auto) NEGATIVE NEGATIVE Urine RBC NONE /HPF Urine WBC NONE /HPF Urine Crystals NONE /LPF Urine Bacteria NEGATIVE /HPF Urine Casts NONE /LPF Urine Mucus NEGATIVE /LPF Urine Culture Indicated NO My Orders Orders - MARX,JANEL L DO [employer] (10/05/22 22:50) Cbc With Automated Diff (10/05/22 22:50) Comprehensive Metabolic Panel (10/05/22 22:50) Ua Culture If Indicated (10/05/22 22:50) Bladder Scan (10/05/22 22:50) Furosemide Injection (Lasix Injection) (10/05/22 23:00) Medications Given in ED Current Medications Medications Dose Ordered Sig/Nelly Route Start Time Stop Time Status Last Admin Dose Admin Furosemide 80 mg ONCE ONCE IVP 10/05/22 23:00 10/05/22 23:01 DC 10/05/22 23:10 80 MG Vital Signs/I&O 10/05/22 10/06/22 22:34 00:32 Temp 36.6 Pulse 70 76 Resp 18 B/P (MAP) 125/81 (96) 136/89 Pulse Ox 99 100 O2 Delivery Room Air Capillary Refill : Less Than 3 Seconds Blood Pressure Mean: 96 Progress Note : Progress Note Patient's labs were ordered reviewed interpreted by me with no concerning acute findings noted. Patient initial bladder scan only showed 28 mL. Patient was given 80 of Lasix IV. He then had diuresis with large and frequent amounts of urination. He was feeling significantly better following the Lasix. Patient has a refill awaiting him in the morning. Patient reports that he will last picker his prescription and restarted as prescribed. Patient is stable and discharged home Departure Impression Primary Impression: Chronic HFrEF (heart failure with reduced ejection fraction) Additional Impression: Fluid overload Qualified Codes: E87.70 - Fluid overload, unspecified Disposition: 01 HOME, SELF-CARE Condition: Stable Departure-Patient Inst. Referrals: [facility] (PCP/Family) Primary Care Physician Patient Instructions: Heart failure with reduced ejection fraction Add. Discharge Instructions: please fill your Lasix prescription in the morning and take as directed. follow up with your primary care provider and safety consultant as needed. All discharge instructions reviewed with patient and/or family. Voiced understanding. JANEL MARX DO Oct 05, 2022 22:47
[2022-10-05] MEDS ORDERED: FUROSEMIDE 40 MG/4 ML INJ (LASIX) IVP ONE (23:00)
[2022-10-05 23:16] LABS: BASOPHILS % (AUTO) 1 % (0-10); EOSINOPHILS # (AUTO) 0.2 10^3/uL (0.0-0.3); EOSINOPHILS % (AUTO) 3 % (0-10); HEMATOCRIT 41 % (40-54); LYMPHOCYTES # (AUTO) 0.5 10^3/uL (1.0-4.0); LYMPHOCYTES % (AUTO) 11 % (12-44); MEAN CORPUSCULAR HEMOGLOBIN 31 pg (25-34); MEAN CORPUSCULAR HGB CONC 32 g/dL (32-36); MEAN CORPUSCULAR VOLUME 97 fL (80-99); MEAN PLATELET VOLUME 10.3 fL (9.0-12.2); MONOCYTES # (AUTO) 0.5 10^3/uL (0.0-1.0); MONOCYTES % (AUTO) 10 % (0-12); NEUTROPHILS # (AUTO) 3.7 10^3/uL (1.8-7.8); NEUTROPHILS % (AUTO) 75 % (42-75); PLATELET COUNT 140 10^3/uL (130-400); WHITE BLOOD COUNT 4.9 10^3/uL (4.3-11.0)
[2022-10-05 23:31] LABS: ALBUMIN 3.7 GM/DL (3.2-4.5); POTASSIUM 3.6 MMOL/L (3.6-5.0)
[2022-10-05 23:32] LABS: CALCIUM 9.2 MG/DL (8.5-10.1)
[2022-10-05 23:34] LABS: TOTAL PROTEIN 7.8 GM/DL (6.4-8.2)
[2022-10-05 23:35] LABS: BILIRUBIN,TOTAL 1.9 MG/DL (0.1-1.0)
[2022-10-05 23:37] LABS: CREATININE SERUM 1.22 MG/DL (0.60-1.30)
[2022-10-06 00:03] LABS: BILIRUBIN,URINE NEGATIVE (NEGATIVE); CLARITY,URINE CLEAR; COLOR,URINE YELLOW; GLUCOSE, URINE (UA) NEGATIVE (NEGATIVE); KETONES,URINE NEGATIVE (NEGATIVE); LEUKOCYTE ESTERASE ,URINE NEGATIVE (NEGATIVE); NITRITE,URINE NEGATIVE (NEGATIVE); PH,URINE 6.5 (5-9); PROTEIN,URINE NEGATIVE (NEGATIVE)
[2022-10-06 00:16] LABS: BACTERIA,URINE NEGATIVE /HPF
[2022-10-06 00:32] VITALS: BP 136/89
== END 2022-10-06 00:32 | disposition home or self-care (01) ==
LOC: EDUNIT# 22:28 → ER 22:29
DX: I50.22 Chronic systolic (congestive) heart failure (principal); Z98.61 Coronary angioplasty status; Z95.810 Presence of automatic (implantable) cardiac defibrillator; Z91.148 Patient's other noncompliance with medication regimen for other reason
CPT/HCPCS: 36415; 80053; 81000; 83880; 85025; 99283

== ENCOUNTER → 2022-11-13 | Outpatient (CLI) | payer OTHER | LOC: CARD 09:11 | PROVIDERS: ATTEND Physician Assistant | DX: I11.9 Hypertensive heart disease without heart failure (principal); I08.1 Rheumatic disorders of both mitral and tricuspid valves | CPT/HCPCS: 93306 ==

== ENCOUNTER 2022-11-19 13:10 | Emergency (ER) | payer MEDICAID, OTHER ==
[~2022-11-19] VITALS: Ht 165 cm; Wt 85.0 kg
[2022-11-19 13:23] VITALS: BP 110/79
[2022-11-19] MEDS ORDERED: FUROSEMIDE INJECTION 40 MG/4 ML VIAL IVP STA (13:23)
--- NOTE | 2022-11-19 13:26 | ED General ---
General Chief Complaint: Lower Extremity Stated Complaint: MATI LEG SWELLING Source of Information: Patient History of Present Illness Date Seen by Provider: Nov 19, 2022 Time Seen by Provider: 13:14 Initial Comments 42-year-old male presenting with complaints of increased swelling to bilateral legs. He reports he has a history of heart failure and fluid buildup. He reports that his ankles were skinny and normal on Thursday when he was released from [facility]. Since he got out of [facility] he has not been managing his diet and has been eating a lot of sodium rich foods. With doing this he feels like he has had decreased urine output despite the furosemide and he has had fluid building up in his legs. He feels like he is getting short of breath with minimal exertion and activity. He can walk about a block before he gets out of breath. He does have a history of using methamphetamines but states its been a month since he had used standing. He reports seeing Dr. Enciso last week and having some medicines adjusted but he does not remember what they adjusted. Timing/Duration: 4-5 Days Severity: Moderate Associated Systoms: No Chest Pain, No Cough, No Diaphoresis, No Fever/Chills, N o Headaches, No Loss of Appetite, No Malaise, No Nausea/Vomiting, No Rash, No Seizure; Shortness of Air (with exertion); No Syncope, No Weakness Allergies and Home Medications Allergies Coded Allergies: No Known Drug Allergies (Unverified , 10/05/19) Patient Home Medication List Home Medication List Reviewed: Yes Amiodarone HCl (Amiodarone HCl) 200 Mg Tablet, 200 MG PO DAILY Prescribed by: RITA VO on 08/12/21 1332 Amiodarone HCl (Amiodarone HCl) 100 Mg Tablet, 100 MG PO DAILY Prescribed by: MENG LAIRD on 02/27/22 0003 Aspirin (Children's Aspirin) 81 Mg Tab.chew, 81 MG PO DAILY@0900 Prescribed by: RITA VO on 08/12/21 1332 Atorvastatin Calcium (Atorvastatin Calcium) 20 Mg Tablet, 20 MG PO HS Prescribed by: ALEJA TORRES on 03/11/21 1429 Carvedilol (Carvedilol) 6.25 Mg Tablet, 6.25 MG PO BID Prescribed by: RITA VO on 08/12/21 1332 Carvedilol (Carvedilol) 6.25 Mg Tablet, 6.25 MG PO BID Prescribed by: MENG LAIRD on 02/27/222 Furosemide (Furosemide) 20 Mg Tablet, 20 MG PO DAILY Prescribed by: AUGUSTINE MASON on 08/20/21 190 Furosemide (Furosemide) 40 Mg Tablet, 40 MG PO DAILY Prescribed by: SRI SANTACRUZ on 01/06/22 104 Furosemide (Lasix) 40 Mg Tablet, 40 MG PO DAILY Prescribed by: MENG LAIRD on 02/27/222 Furosemide (Furosemide) 40 Mg Tablet, 40 MG PO DAILY Prescribed by: DEVONTE COON on 05/25/222045 Furosemide (Furosemide) 40 Mg Tablet, 40 MG PO DAILY Prescribed by: DEVONTE ODELLRT on 11/19/22 141 Hydrocodone/Acetaminophen (Hydrocodone-Acetamin 5-325 mg) 5 Mg-325 Mg Tablet, 1 TAB PO Q8H PRN for PAIN-MODERATE (5-7) Prescribed by: JANEL MARX on 11/14/211923 Loperamide HCl (Loperamide) 2 Mg Capsule, 2 MG PO NEEDED PRN for DIARRHEA Prescribed by: SRI SANTACRUZ on 01/06/22 104 Losartan Potassium (Losartan Potassium) 50 Mg Tablet, 50 MG PO DAILY Prescribed by: RITA VO on 08/12/21 133 Losartan Potassium (Losartan Potassium) 50 Mg Tablet, 50 MG PO DAILY Prescribed by: MENG LAIRD on 02/27/222 Ondansetron (Ondansetron Odt) 4 Mg Tab.rapdis, 4 MG PO Q6H PRN for NAUSEA/VOM ITING Prescribed by: JANEL MARX on 11/14/211922 Ondansetron (Ondansetron Odt) 4 Mg Tab.rapdis, 4 MG SL DAILY PRN for NAUSEA/VOMITING, (Reported) Entered as Reported by: ALEJANDRO SZYMANSKI on 01/05/22 1155 Spironolactone (Spironolactone) 25 Mg Tablet, 25 MG PO DAILY Prescribed by: ALEJA TORRES on 03/11/21 1429 Spironolactone (Spironolactone) 25 Mg Tablet, 25 MG PO DAILY Prescribed by: MENG LAIRD on 02/27/222 Review of Systems Review of Systems Constitutional: no symptoms reported EENTM: no symptoms reported Respiratory: see HPI Cardiovascular: see HPI Gastrointestinal: no symptoms reported Genitourinary: no symptoms reported Musculoskeletal: no symptoms reported Skin: no symptoms reported Psychiatric/Neurological: No Symptoms Reported Past Mtoincx-Uzyhyv-Pdfqtu Hx Patient Social History Tobacco Use?: No Substance use?: Yes Substance type: Methamphetamine Alcohol Use?: No Immunizations Up To Date Tetanus Booster (TDap): Unknown First/Initial COVID19 Vaccinat: DENIES Second COVID19 Vaccination Gaudencio: NONE Third COVID19 Vaccination Date: NONE Seasonal Allergies Seasonal Allergies: Yes (USE INHALER) Past Medical History Surgery/Hospitalization HX: icd mdt to left chest; CHF; Substance abuse, CVA Surgeries: Yes (CARDIAC CATH 11/2019--NO INTERVENTION;ICD/DEFIBRILLATOR 06/04/20) Cardiac, Defibrillator Respiratory: Yes Asthma Currently Using CPAP: No Currently Using BIPAP: No Cardiac: Yes (CHF-NEEDS LIFEVEST/REFUSES TO WEAR;NSTEMI;EF10%;LBBB;DEFIBRILLATOR 06/04/20) Cardiomyopathy, Chronic Edema/Swelling, Heart Attack, High Cholesterol, Hyp ertension Neurological: Yes Stroke Sexually Transmitted Disease: Yes (CHLAMYDIA; GONORRHEA 10/05/19) Genitourinary: No Gastrointestinal: No Musculoskeletal: No Endocrine: No HEENT: No Cancer: No Psychosocial: Yes (SUBSTANCE ABUSE) Integumentary: No Blood Disorders: No Family Medical History Asthma AUNT Hypertension MOTHER No Pertinent Family Hx HAS BEEN OUT OF [facility] SINCE 2019 VERY NON-COMPLIANT IN ALL ASPECTS OF CARE NEEDS LIFE VEST-=-REFUSES TO WEAR; NSTEMI; EF 10%; LBBB ICD/DEFIBRILLATOR PLACED BY DR. ENCISO 06/04/20 SOCIAL HISTORY: -ETOH-RARELY USES -DRUGS--METH, COCAINE, THC. DENIES IV USE-STATES HE SMOKES THEM -NO TOBACCO PAST SURGICAL HISTORY: -CARDIAC CATH 11/2019--NO INTERVENTION -ICD DEFIBRILLATOR PLACED 06/04/[address] ENCISO ECHOCARDIOGRAM 05/17/2020 Physical Exam Vital Signs Vital Signs - First Documented 11/19/22 13:23 Temp 36.8 Pulse 64 Resp 16 B/P (MAP) 110/79 (89) Pulse Ox 100 O2 Delivery Room Air Capillary Refill : Height, Weight, BMI Height: '" Weight: lbs. oz. kg; 28.00 BMI Method: General Appearance: No Apparent Distress Respiratory: Chest Non Tender, Lungs Clear, Normal Breath Sounds, No Accessory Muscle Use, No Respiratory Distress Cardiovascular: Regular Rate, Rhythm, Normal Peripheral Pulses Gastrointestinal: Normal Bowel Sounds, No Pulsatile Mass, Non Tender, Soft Rectal: Deferred Extremity: Normal Capillary Refill, Pedal Edema (2+ pitting BLE edema) Neurologic/Psychiatric: Alert, Oriented x3, vending machine attendant II-XII Norm as Tested Skin: Normal Color, Warm/Dry Progress/Results/Core Measures Suspected Sepsis SIRS Temperature: Pulse: Respiratory Rate: Laboratory Tests 11/19/22 13:25: White Blood Count 3.1L Blood Pressure / Mean: Laboratory Tests 11/19/22 13:25: Creatinine 1.30, INR Comment 1.2, Platelet Count 138, Total Bilirubin 2.3H Results/Orders Lab Results Laboratory Tests Test 11/19/22 13:25 11/19/22 13:30 Range/Units White Blood Count 3.1 L 4.3-11.0 10^3/uL Red Blood Count 4.01 L 4.30-5.52 10^6/uL Hemoglobin 12.3 L 13.3-17.7 g/dL Hematocrit 39 L 40-54 % Mean Corpuscular Volume 97 80-99 fL Mean Corpuscular Hemoglobin 31 25-34 pg Mean Corpuscular Hemoglobin Concent 32 32-36 g/dL Red Cell Distribution Width 14.9 H 10.0-14.5 % Platelet Count 138 130-400 10^3/uL Mean Platelet Volume 11.3 9.0-12.2 fL Immature Granulocyte % (Auto) 0 % Neutrophils (%) (Auto) 69 42-75 % Lymphocytes (%) (Auto) 13 12-44 % Monocytes (%) (Auto) 12 0-12 % Eosinophils (%) (Auto) 5 0-10 % Basophils (%) (Auto) 1 0-10 % Neutrophils # (Auto) 2.1 1.8-7.8 10^3/uL Lymphocytes # (Auto) 0.4 L 1.0-4.0 10^3/uL Monocytes # (Auto) 0.4 0.0-1.0 10^3/uL Eosinophils # (Auto) 0.2 0.0-0.3 10^3/uL Basophils # (Auto) 0.0 0.0-0.1 10^3/uL Immature Granulocyte # (Auto) 0.0 0.0-0.1 10^3/uL Percent Immature Platelet Fraction 7.5 0.0-7.6 % Prothrombin Time 16.1 H 12.2-14.7 SEC INR Comment 1.2 0.8-1.4 Activated Partial Thromboplast Time 32 24-35 SEC Sodium Level 132 L 135-145 MMOL/L Potassium Level 4.3 3.6-5.0 MMOL/L Chloride Level 96 L 98-107 MMOL/L Carbon Dioxide Level 28 21-32 MMOL/L Anion Gap 8 5-14 MMOL/L Blood Urea Nitrogen 13 7-18 MG/DL Creatinine 1.30 0.60-1.30 MG/DL Estimat Glomerular Filtration Rate 69 BUN/Creatinine Ratio 10 Glucose Level 90 70-105 MG/DL Calcium Level 9.2 8.5-10.1 MG/DL Corrected Calcium 9.4 8.5-10.1 MG/DL Magnesium Level 2.1 1.6-2.4 MG/DL Total Bilirubin 2.3 H 0.1-1.0 MG/DL Aspartate Amino Transf (AST/SGOT) 60 H 5-34 U/L Alanine Aminotransferase (ALT/SGPT) 41 0-55 U/L Alkaline Phosphatase 271 H 40-136 U/L Troponin I < 0.30 <0.30 NG/ML Pro-B-Type Natriuretic Peptide 1096.0 H <125.0 PG/ML Total Protein 8.5 H 6.4-8.2 GM/DL Albumin 3.7 3.2-4.5 GM/DL Urine Color YELLOW Urine Clarity CLEAR Urine pH 6.5 5-9 Urine Specific [place] <=1.005 1.016-1.022 Urine Protein NEGATIVE NEGATIVE Urine Glucose (UA) NEGATIVE NEGATIVE Urine Ketones NEGATIVE NEGATIVE Urine Nitrite NEGATIVE NEGATIVE Urine Bilirubin NEGATIVE NEGATIVE Urine Urobilinogen 2.0 < = 1.0 MG/DL Urine Leukocyte Esterase NEGATIVE NEGATIVE Urine RBC (Auto) NEGATIVE NEGATIVE Urine RBC 0-2 /HPF Urine WBC 2-5 /HPF Urine Squamous Epithelial Cells 2-5 /HPF Urine Crystals NONE /LPF Urine Bacteria NEGATIVE /HPF Urine Casts NONE /LPF Urine Mucus NEGATIVE /LPF Urine Culture Indicated NO Urine Opiates Screen NEGATIVE NEGATIVE Urine Oxycodone Screen NEGATIVE NEGATIVE Urine Methadone Screen NEGATIVE NEGATIVE Urine Propoxyphene Screen NEGATIVE NEGATIVE Urine Barbiturates Screen NEGATIVE NEGATIVE Ur Tricyclic Antidepressants Screen NEGATIVE NEGATIVE Urine Phencyclidine Screen NEGATIVE NEGATIVE Urine Amphetamines Screen NEGATIVE NEGATIVE Urine Methamphetamines Screen NEGATIVE NEGATIVE Urine Benzodiazepines Screen NEGATIVE NEGATIVE Urine Cocaine Screen NEGATIVE NEGATIVE Urine Cannabinoids Screen NEGATIVE NEGATIVE My Orders Orders - DEVONTE COON MD Cbc With Automated Diff (11/19/22:) Magnesium (11/19/22:) Chest 1 View Ap/Pa Only (11/19/22:) Ekg Tracing (11/19/22:) Comprehensive Metabolic Panel (11/19/22:) Protime With Inr (11/19/22:) Partial Thromboplastin Time (11/19/22:) Monitor-Rhythm Ecg Trace Only (11/19/22:) Ed Iv/Invasive Line Start (11/19/22:) Troponin I Fs (11/19/22:) Probnp Fs (11/19/22:) Furosemide Injection (Furosemide Injec (11/19/22 13:23) Drug Screen Stat (Urine) (11/19/22 13:26) Urinalysis (11/19/22 13:26) Antacid Suspension (Antacid Suspension (11/19/22 14:17) Vital Signs/I&O 11/19/22 13:23 Temp 36.8 Pulse 64 Resp 16 B/P (MAP) 110/79 (89) Pulse Ox 100 O2 Delivery Room Air Capillary Refill : Progress Note #1: Progress Note Differential diagnosis includes substance abuse, medical non-compliance, CHF exacerbation, renal failure, hepatic failure, electrolyte imbalance. Obtain peripheral IV access and send labs for complete blood count, comprehensive metabolic profile, coagulation factors, troponin, proBNP, urinalysis, urine drug screen, magnesium. ECG to check for arrhythmia or acute ischemia. 1 view Chest xray to look for effusion or acute pulmonary abnormality with his history of CHF and now having peripheral edema and increased shortness of breath with exertion. Administer Furosemide 80 mg IV x 1 to try and help with diuresis. Patient is currently in no respiratory distress and saturating 100% on room air. His lung sounds are clear without rales. I reviewed echocardiogram from 11/13/[address] Enciso, his ultrasound technician, and it showed EF 15-20% with severely decreased systolic function. Severe tricuspid regurgitation. Pericardial effusion slightly increased from August 2021. Progress Note #2: Time: 13:48 Progress Note On my personal interpretation and review of the 1 view chest x-ray he has chronic cardiomegaly that appears to be slightly increased from May 25, 2022. Based on his echocardiogram from November 14 part of this increase cardiomegaly is probably due to his pericardial effusion which has increased from last August. Complete blood count shows his white blood cells are slightly low at 3.1. Hemoglobin is low normal at 12.3. Platelets are low normal at 138. 1356 coagulation factors are not showing acute significant abnormality. His pro time is 16.1 with an INR of 1.2 and his PTT is 32. His urine drug screen was negative for all substances checked. Urinalysis was dilute with specific gravity less than 1.005. Progress Note #3: Time: 14:04 Progress Note I reviewed his radiology report on his 1 view chest xray and they felt it was unchanged from 05/25/2022 with massive cardiomegaly. His comprehensive metabolic profile does not show any acute electrolyte abnormality to indicate a different reason for his peripheral edema. His proBNP is down to 1,096 from over 1500 in September and May. Will have him be more strict with his low sodium diet and increase his lasix for the next 3 days to help try and get him to diurese some of the extra edema and fluid off of his system. Have him check back with Dr. Enciso or pcp if having continued concerns. When reviewing discharge plan and test results with the patient he requested something for an upset stomach. He denied having nausea or vomiting but felt like he needed something to help settle his stomach. He requested some Pepto- Bismol or something similar. Will order a dose of Mylanta prior to discharge. ECG Initial ECG Impression Date: Nov 19, 2022 Initial ECG Impression Time: 13:33 Initial ECG Rate: 63 Initial ECG Rhythm: Normal Sinus Initial ECG Impression: 1st Degree AV Block Initial ECG Comparisson: Unchanged (05/25/2022) Comment On my personal interpretation and review the electrocardiogram shows sinus rhyt hm with first-degree AV block, rate of 63 bpm. MS interval 223 ms. Right axis deviation. Intraventricular conduction delay. Inferior Q waves. QT interval 541 ms with a QTc interval of 548 ms. Overall appears similar to tracing from May 25, 2022. Diagnostic Imaging Diagonstic Imaging: Xray Plain Films/CT/US/NM/MRI: chest Comments NAME: CHERRIE CHUNG [facility] REC#: [id number] PT STATUS: REG ER : 1980 PHYSICIAN: DEVONTE COON MD ADMIT DATE: 11/19/22/ER FS Draft Date of Exam:11/19/22 CHEST 1 VIEW AP/PA ONLY INDICATION: Shortness of breath. Frontal chest obtained at 1:29 p.m. and compared to 05/25/2022. Marked cardiomegaly is again noted. Pacemaker is unchanged. There is no focal infiltrate or pneumothorax or pleural fluid. IMPRESSION: Unchanged massive cardiomegaly. No focal infiltrate or pneumothorax or pleural fluid. Dictated on workstation # [id number] Dict: 11/19/22 1355 Trans: 11/19/22 1357 [facility] [id number] Interpreted by: ANASTASIA GRIMES MD Electronically signed by: Reviewed: Reviewed by Me (I reviewed the radiologist report [id number]) Departure Impression Primary Impression: Acute exacerbation of CHF (congestive heart failure) Qualified Codes: I50.23 - Acute on chronic systolic (congestive) heart failure Additional Impression: Noncompliance with diet and medication regimen Disposition: 01 HOME, SELF-CARE Condition: Stable Departure-Patient Inst. Decision time for Depature: 14:09 Referrals: [facility] (PCP/Family) Primary Care Physician Patient Instructions: Heart Failure ED, Heart Healthy Diet Add. Discharge Instructions: Be more strict with your low sodium low salt diet. For the next 3 days take an extra 40 mg of Furosemide in addition to your regularly prescribed dose. Follow up with Dr. Enciso or [facility] clinic if having continued concerns. All discharge instructions reviewed with patient and/or family. Voiced under standing. Scripts Furosemide (Furosemide) 40 Mg Tablet 40 MG PO DAILY for CHF for 3 Days, #3 TAB 0 Refills Prov: DEVONTE COON MD 11/19/22 DEVONTE COON MD Nov 19, 2022 13:26
[2022-11-19 13:41] LABS: BASOPHILS % (AUTO) 1 % (0-10); EOSINOPHILS # (AUTO) 0.2 10^3/uL (0.0-0.3); EOSINOPHILS % (AUTO) 5 % (0-10); HEMATOCRIT 39 % (40-54); HEMOGLOBIN 12.3 g/dL (13.3-17.7); LYMPHOCYTES # (AUTO) 0.4 10^3/uL (1.0-4.0); LYMPHOCYTES % (AUTO) 13 % (12-44); MEAN CORPUSCULAR HEMOGLOBIN 31 pg (25-34); MEAN CORPUSCULAR HGB CONC 32 g/dL (32-36); MEAN CORPUSCULAR VOLUME 97 fL (80-99); MEAN PLATELET VOLUME 11.3 fL (9.0-12.2); MONOCYTES # (AUTO) 0.4 10^3/uL (0.0-1.0); MONOCYTES % (AUTO) 12 % (0-12); NEUTROPHILS # (AUTO) 2.1 10^3/uL (1.8-7.8); NEUTROPHILS % (AUTO) 69 % (42-75); PLATELET COUNT 138 10^3/uL (130-400); WHITE BLOOD COUNT 3.1 10^3/uL (4.3-11.0)
[2022-11-19 13:44] LABS: BILIRUBIN,URINE NEGATIVE (NEGATIVE); CLARITY,URINE CLEAR; COLOR,URINE YELLOW; GLUCOSE, URINE (UA) NEGATIVE (NEGATIVE); KETONES,URINE NEGATIVE (NEGATIVE); LEUKOCYTE ESTERASE ,URINE NEGATIVE (NEGATIVE); NITRITE,URINE NEGATIVE (NEGATIVE); PH,URINE 6.5 (5-9); PROTEIN,URINE NEGATIVE (NEGATIVE)
[2022-11-19 13:50] LABS: RBC,URINE 0-2 /HPF
[2022-11-19 13:51] LABS: BACTERIA,URINE NEGATIVE /HPF
[2022-11-19 13:52] LABS: INR 1.2 (0.8-1.4); PROTHROMBIN TIME PATIENT 16.1 SEC (12.2-14.7)
[2022-11-19 13:55] LABS: AMPHETAMINE SCREEN, URINE NEGATIVE (NEGATIVE); BARBITURATE SCREEN URINE NEGATIVE (NEGATIVE); BENZODIAZEPINES SCREEN URINE NEGATIVE (NEGATIVE); CANNABINOID SCREEN, URINE NEGATIVE (NEGATIVE); COCAINE SCREEN URINE NEGATIVE (NEGATIVE); METHADONE STAT NEGATIVE (NEGATIVE); OPIATE SCREEN URINE NEGATIVE (NEGATIVE); OXYCODONE STAT NEGATIVE (NEGATIVE); PROPOXYPHENE STAT NEGATIVE (NEGATIVE); TRICYCLIC ANTIDEPRESSANTS SCRE NEGATIVE (NEGATIVE)
--- NOTE | 2022-11-19 13:57 | Diagnostic Imaging Report ---
INDICATION: Shortness of breath. Frontal chest obtained at 1:29 p.m. and compared to 05/25/2022. Marked cardiomegaly is again noted. Pacemaker is unchanged. There is no focal infiltrate or pneumothorax or pleural fluid. IMPRESSION: Unchanged massive cardiomegaly. No focal infiltrate or pneumothorax or pleural fluid. Dictated by: Dictated on workstation # [id number]
[2022-11-19 14:00] LABS: POTASSIUM 4.3 MMOL/L (3.6-5.0); SODIUM 132 MMOL/L (135-145)
[2022-11-19 14:01] LABS: ALANINE AMINOTRANSFERASE 41 U/L (0-55); ALBUMIN 3.7 GM/DL (3.2-4.5); ALKALINE PHOSPHATASE 271 U/L (40-136); BILIRUBIN,TOTAL 2.3 MG/DL (0.1-1.0); BUN/CREATININE RATIO 10; CALCIUM 9.2 MG/DL (8.5-10.1); CARBON DIOXIDE 28 MMOL/L (21-32); CHLORIDE 96 MMOL/L (98-107); GFR ESTIMATED 69; GLUCOSE 90 MG/DL (70-105); MAGNESIUM 2.1 MG/DL (1.6-2.4); TOTAL PROTEIN 8.5 GM/DL (6.4-8.2)
[2022-11-19] MEDS ORDERED: FURO40TA4 PO (14:12)
[2022-11-19] MEDS ORDERED: ANTACID SUSPENSION 30 ML UDC PO STA (14:17)
== END 2022-11-19 14:30 | disposition home or self-care (01) ==
LOC: EDUNIT# 13:10 → ER FS 13:13
DX: I11.0 Hypertensive heart disease with heart failure (principal); I50.9 Heart failure, unspecified; Z91.119 Patient's noncompliance with dietary regimen due to unspecified reason; Z91.148 Patient's other noncompliance with medication regimen for other reason; Z95.810 Presence of automatic (implantable) cardiac defibrillator
CPT/HCPCS: 36415; 71045; 80053; 80306; 81000; 83735; 83880; 84484; 85025; 85610; 85730; 93005

== ENCOUNTER → 2023-01-14 | Outpatient (CLI) | payer OTHER ==
[~2023-01-14] VITALS: Ht 172.7 cm; Wt 81.5 kg
[~2023-01-14] MED LIST changes: +BUDE10.2 IH; +HYDR-3817 PO; +RT-ALBUINH INH
== END | disposition home or self-care (01) ==
LOC: PREOP 05:28
PROVIDERS: ATTEND Surgery
DX: Z01.818 Encounter for other preprocedural examination (principal)

== ENCOUNTER 2023-01-22 10:59 | Day surgery (SDC) | payer OTHER ==
[2023-01-22] VITALS (12 sets, daily range): BP systolic 111–132; BP diastolic 70–97
[~2023-01-22] VITALS: Ht 172.7 cm; Wt 81.5 kg
[~2023-01-22 10:59] MED LIST changes: -HYDR-3817 PO
--- NOTE | 2023-01-22 11:28 | Progress Note-Pre Operative ---
Pre-Operative Progress Note Date of Available H&P: Jan 22, 2023 Date H&P Reviewed: Jan 22, 2023 Time H&P Reviewed: 11:00 History & Physical: No changes noted Pre-Operative Diagnosis: sx reducible right inguinal hernia GABE VARMA MD Jan 22, 2023 11:28
[2023-01-22] MEDS ORDERED: ONDANSETRON INJECTION 4 MG/2 ML (SDV) IVP PRN ×2 (11:30→15:15)
[2023-01-22] MEDS ORDERED: ceFAZolin INJECTION 2,000 MG in NS (IVPB) 50 ML 50 ML IV ONE (11:30)
[2023-01-22] MEDS ORDERED: ACETAMINOPHEN 325 MG TABLET PO PRN (11:30)
[2023-01-22] MEDS ORDERED: LACTATED RINGERS 1,000 ML 1,000 ML IV PRN (11:30)
[2023-01-22] MEDS ORDERED: oxyCODONE/ACETAMINOPHEN 5/325MG TABLET PO PRN (11:30)
[2023-01-22] MEDS ORDERED: morphine INJ 10 MG/ML 1ML (SYR OR VIAL) IVP PRN ×2 (11:30)
[2023-01-22] MEDS ORDERED: HYDR-3817 PO (11:31)
--- NOTE | 2023-01-22 11:31 | Discharge Inst-Surgical ---
D/C Lap Instructions-AVANI New, Converted, or Re-Newed RX: RX on Chart Follow Up Appt in 2 weeks Activity as tolerated No driving for 24 hours No driving while on pain medications Incentive Spirometry use every 2 hours while awake Regular Diet Symptoms to Report: Fever over 101 degree F, Nausea/Vomiting Infection Signs and Symptoms to report: Increased redness, Foul odor of wound, Increased drainage Bathing instructions: May shower Operative Area Clean/Dry; Keep incision clean/dry If any problems/questions: Contact your physician or go to Emergency Room GABE VARMA MD Jan 22, 2023 11:31
[2023-01-22 11:33] LABS: AMPHETAMINE SCREEN, URINE NEGATIVE (NEGATIVE); BARBITURATE SCREEN URINE NEGATIVE (NEGATIVE); CANNABINOID SCREEN, URINE NEGATIVE (NEGATIVE); COCAINE SCREEN URINE NEGATIVE (NEGATIVE); METHADONE STAT NEGATIVE (NEGATIVE); OPIATE SCREEN URINE NEGATIVE (NEGATIVE); OXYCODONE STAT NEGATIVE (NEGATIVE); TRICYCLIC ANTIDEPRESSANTS SCRE NEGATIVE (NEGATIVE)
[2023-01-22 11:53] LABS: BASOPHILS % (AUTO) 1 % (0-10); EOSINOPHILS # (AUTO) 0.1 10^3/uL (0.0-0.3); EOSINOPHILS % (AUTO) 4 % (0-10); HEMATOCRIT 41 % (40-54); HEMOGLOBIN 13.2 g/dL (13.3-17.7); LYMPHOCYTES # (AUTO) 0.4 10^3/uL (1.0-4.0); LYMPHOCYTES % (AUTO) 13 % (12-44); MEAN CORPUSCULAR HEMOGLOBIN 31 pg (25-34); MEAN CORPUSCULAR HGB CONC 33 g/dL (32-36); MEAN CORPUSCULAR VOLUME 96 fL (80-99); MEAN PLATELET VOLUME 11.7 fL (9.0-12.2); MONOCYTES # (AUTO) 0.4 10^3/uL (0.0-1.0); MONOCYTES % (AUTO) 13 % (0-12); NEUTROPHILS # (AUTO) 2.1 10^3/uL (1.8-7.8); NEUTROPHILS % (AUTO) 69 % (42-75); PLATELET COUNT 134 10^3/uL (130-400)
[2023-01-22 12:17] LABS: ALBUMIN 3.9 GM/DL (3.2-4.5); POTASSIUM 3.7 MMOL/L (3.6-5.0)
[2023-01-22 12:19] LABS: CALCIUM 8.9 MG/DL (8.5-10.1)
[2023-01-22 12:20] LABS: TOTAL PROTEIN 8.4 GM/DL (6.4-8.2)
[2023-01-22 12:22] LABS: BILIRUBIN,TOTAL 2.6 MG/DL (0.1-1.0)
[2023-01-22 12:23] LABS: CREATININE SERUM 1.17 MG/DL (0.60-1.30)
[2023-01-22] MEDS ORDERED: ROCURONIUM 50 MG/5 ML VIAL IV ONE (12:52)
[2023-01-22] MEDS ORDERED: LIDOCAINE PF 2% 5 ML VIAL ONE (12:52)
[2023-01-22] MEDS ORDERED: LIDOCAINE 2% w/EPI 1:100,000 20 ML VIAL ONE (12:52)
[2023-01-22] MEDS ORDERED: SEVOFLURANE (ULTANE) 15 ML INHAL SOLN ONE ×2 (12:52→14:45)
[2023-01-22] MEDS ORDERED: proPOfol INJECTION 200 MG/20 ML VIAL IV ONE (12:52)
[2023-01-22] MEDS ORDERED: MIDAZOLAM INJ 2 MG/2 ML VIAL ONE (12:53)
[2023-01-22] MEDS ORDERED: fentaNYL INJECTION 100 MCG/2 ML VIAL ONE (12:53)
[2023-01-22] MEDS ORDERED: LIDOCAINE 2% w/EPI 1:100,000 20 ML VIAL INJ ONE (14:13)
[2023-01-22] MEDS ORDERED: GLYCOPYRROLATE INJ 0.2 MG/ML 2 ML VIAL ONE (14:41)
[2023-01-22] MEDS ORDERED: NEOSTIGMINE 1 MG/1ML 10 ML VIAL ONE (14:41)
[2023-01-22] MEDS ORDERED: SUGAMMADEX INJ 100 MG/ML 5 ML VIAL IV ONE (14:47)
--- NOTE | 2023-01-22 14:53 | Progress Note-Post Operative ---
Post-Operative Progess Note Surgeon (s)/Calculation Clerk (s) Surgeon GABE VARMA MD Calculation Clerk: jhon ardon [employer]ECUTIVE CHAIRMAN OF [employer]ARD Pre-Operative Diagnosis sx reducible right inguinal hernia Post-Operative Diagnosis sx reducible right inguinal pantaloon hernia Procedure & Operative Findings Date of Procedure 01/22/23 Procedure Performed/Findings laparoscopic right ing hernia repair with mesh. Anesthesia Type get Estimated Blood Loss Estimated blood loss (mL): minimal Specimens/Packing Specimens Removed none GABE VARMA MD Jan 22, 2023 14:53
[2023-01-22] MEDS ORDERED: morphine INJ 10 MG/ML 1ML (SYR OR VIAL) ONE (15:09)
[2023-01-22] MEDS ORDERED: morphine INJ 10 MG/ML 1ML (SYR OR VIAL) IVP ONE (15:15)
[2023-01-22] MEDS ORDERED: HYDROmorphone INJECTION 2 MG/ML VIAL IV ONE (15:15)
--- NOTE | 2023-01-22 15:57 | Anesthesia-General Post-Op ---
General Patient Condition Mental Status/LOC: Same as Preop Cardiovascular: Satisfactory Nausea/Vomiting: Absent Respiratory: Satisfactory Pain: Controlled Complications: Absent Post Op Complications Complications None Follow Up Care/Instructions Patient Instructions None needed. Anesthesia/Patient Condition Patient Condition Patient was doing well in PACU with no complaints, stable vital signs, no apparent adverse anesthesia problems. No complications reported per nursing. TRACY MERRILL DO Jan 22, 2023 15:57
--- NOTE | 2023-01-22 19:39 | OPERATIVE REPORT ---
DATE OF SERVICE: 01/22/2023 ATTENDING [place] [place]: [facility]. PREOPERATIVE DIAGNOSIS: Symptomatic reducible right inguinal hernia. POSTOPERATIVE DIAGNOSIS: Symptomatic reducible right inguinal pantaloon hernia. PROCEDURE: Laparoscopic right inguinal hernia repair with mesh. SURGEON: Gabe Varma MD LITIGATION SECRETARY: Cristian Cisneros APRN ANESTHESIA: General endotracheal. ESTIMATED BLOOD LOSS: Minimal. FINDINGS: Symptomatic reducible right inguinal pantaloon hernia. DISPOSITION: The patient tolerated the procedure well. INDICATIONS: The patient is a 42-year-old male who developed a bulge as well as pain in the right inguinal region approximately 6 weeks ago. He states that the bulge grew slightly larger in size as well and became more painful. He was examined in the office and found to have a right reducible inguinal hernia, which is tender to palpation. He states that he is otherwise eating well and having normal bowel movements. He does have a history of previous alcohol abuse and does have a cardiomyopathy secondary to this. DESCRIPTION OF PROCEDURE: The patient was brought to the operating room, laid supine on the table. After adequate IV pain and sedative medications and general endotracheal intubation, the abdomen was prepped and draped in standard surgical fashion. A 2% lidocaine with epinephrine was used to anesthetize the infraumbilical rim and a crescent-shaped skin incision made using a #15 blade. The abdominal wall was then retracted anteriorly using a sharp towel clamp and a Veress needle inserted with a low opening pressure of 0 mmHg and the abdomen was then insufflated to 15 mmHg pressure. The Veress needle removed and a 10 mm trocar placed followed by a 10 mm 45-degree angle laparoscope visualized the peritoneal cavity. A 4-quadrant abdominal exploration was performed. There was a right inguinal direct as well as indirect inguinal hernia consistent with a pantaloon inguinal hernia. There was no left inguinal hernia component. There was ascites in the abdomen as well as liver cirrhotic changes. Under direct visualization, we then proceeded to place bilateral 5 mm ports after the skin and peritoneal lining were anesthetized using 0.5% Marcaine with epinephrine and transverse skin incision was made using a #15 blade. The patient was then placed in Trendelenburg position. The peritoneal lining was then opened, starting laterally towards the conjoined tendon and inguinal ligament using a Sonicision. We then proceeded medially until Victorino's ligament was identified. We then proceeded with inferior dissection encompassing both hernia sacs using blunt dissection as well as using the Sonicision. The cord and its surrounding contents identified and spared throughout the process. A medium size 3DMax polypropylene mesh was placed through the 10 mm port site and placed over the defect and tacked to Victorino's ligament medially with an absorbable tack in the inguinal ligament laterally. The peritoneal lining was then placed over the mesh and a few absorbable tacks placed to hold this in place with visualization of good hemostasis. The ascites fluid was evacuated with suction as well. Good hemostasis was observed. The 10 mm port site fascia and peritoneum were then closed under direct visualization using a Junior-Kathie device and an 0 Vicryl suture. The abdomen was desufflated and the remaining ports were removed. All skin incisions were closed using 4-0 Monocryl running subcuticular sutures. Wounds were then cleaned and covered in Dermabond. The patient tolerated the procedure well. We will start IV normal pain medication as well as a clear liquid diet. Once he is tolerating clears, has good pain control with oral pain medications, ambulating well, we will discharge him home where he will be instructed to do no heavy lifting or exertion for the next 2 weeks and even after that to slowly incorporate more lifting and exertion for a total of 6 weeks and at that point then he does not have any restrictions. Job ID: [id number] DocumentID: [id number] Dictated Date: 01/22/2023 15:01:42 Lead Generation Specialist Date: 01/22/2023 19:36:00 Dictated By: GABE VARMA MD
== END 2023-01-22 17:00 | disposition home or self-care (01) ==
LOC: SDC 10:59
PROVIDERS: ATTEND Surgery
DX: K40.90 Unilateral inguinal hernia, without obstruction or gangrene, not specified as recurrent (principal)
CPT/HCPCS: 49650; 80053; 80306; 85025; 87081; C1781; 36415

== ENCOUNTER 2023-02-03 20:50 | Emergency (ER) | payer OTHER ==
[~2023-02-03] VITALS: Ht 172.7 cm; Wt 86.0 kg
[~2023-02-03 20:50] MED LIST changes: +HYDR-3817 PO
[2023-02-03] MEDS ORDERED: ONDANSETRON INJECTION 4 MG/2 ML (SDV) IVP ONE (21:15)
--- NOTE | 2023-02-03 21:37 | ED General ---
General Chief Complaint: Abdominal/GI Problems Stated Complaint: VOMITTING FOR 2 DAYS Nursing Triage Note: PT AMB TO FS 06 W C/O GEN UNWELL FEELING SX LAST NIGHT, VOMITING SX THIS AM. PT REPORTS HE WENT TO [facility] THIS AM WHERE HE WAS PRESCRIBED ZOFRAN ODT, ATE NOODLES TONIGHT AND BEGAN VOMITING AGAIN. PT A&OX4, DENIES PAIN. History of Present Illness Date Seen by Provider: Feb 03, 2023 Time Seen by Provider: 21:07 Initial Comments 42-year-old male with PMH of recent umbilical hernia surgery last week, is here with complaints of nausea and vomiting since early today morning along with periumbilical abdominal pain. Patient feels like he is bloated and that his stomach feels hard and take. Patient went to walk-in clinic in the morning and was given a prescription for Zofran. Patient states it does not help. Patient had dinner and ate noodles and has been vomiting since then. Patient has been taking hydrocodone for his pain after surgery. Patient states that he has been having somewhat normal bowel movements. Denies diarrhea, constipation, fever and chills, chest pain, shortness of breath, dizziness. Allergies and Home Medications Allergies Coded Allergies: No Known Drug Allergies (Unverified , 10/05/19) Patient Home Medication List Home Medication List Reviewed: Yes Albuterol Sulfate (Ventolin Hfa) 1 Puff Puff, 2 PUFF INH Q4H, (Reported) Entered as Reported by: Kathleen Escalante on 01/14/23 1612 Amiodarone HCl (Amiodarone HCl) 200 Mg Tablet, 200 MG PO DAILY Prescribed by: RITA VO on 08/12/21 1332 Amiodarone HCl (Amiodarone HCl) 100 Mg Tablet, 100 MG PO DAILY Prescribed by: MENG LAIRD on 02/27/22 0003 Aspirin (Children's Aspirin) 81 Mg Tab.chew, 81 MG PO DAILY@0900 Prescribed by: RITA VO on 08/12/21 1332 Atorvastatin Calcium (Atorvastatin Calcium) 20 Mg Tablet, 20 MG PO HS Prescribed by: ALEJA TORRES on 03/11/21 1429 Budesonide/Formoterol Fumarate (Symbicort 160-4.5 Mcg Inhaler) 160 Mcg-4.5 Mcg/Actuation Hfa.aer.ad, 2 PUFF IH BID, (Reported) Entered as Reported by: Kathleen Escalante on 01/14/23 1612 Carvedilol (Carvedilol) 6.25 Mg Tablet, 6.25 MG PO BID Prescribed by: RITA VO on 08/12/21 1332 Furosemide (Furosemide) 40 Mg Tablet, 40 MG PO DAILY Prescribed by: SRI SANTACURZ on 01/06/22 1044 Hydrocodone/Acetaminophen (Hydrocodone-Acetamin 7.5-325) 7.5 Mg-325 Mg Tablet, 1 EACH PO Q4H PRN for PAIN-BREAKTHROUGH Prescribed by: GABE TORRES on 01/22/23 1131 Losartan Potassium (Losartan Potassium) 50 Mg Tablet, 50 MG PO DAILY Prescribed by: RITA VO on 08/12/21 1332 Spironolactone (Spironolactone) 25 Mg Tablet, 25 MG PO DAILY Prescribed by: ALEJA TORRES on 03/11/21 1429 Review of Systems Review of Systems Constitutional: no symptoms reported Gastrointestinal: abdominal pain, loss of appetite, nausea, vomiting Past Fnoewec-Apxgbp-Autdpr Hx Patient Social History Tobacco Use?: No Use of E-Cig and/or Vaping dev: No Substance use?: No Alcohol Use?: No Immunizations Up To Date Tetanus Booster (TDap): Unknown First/Initial COVID19 Vaccinat: DENIES Second COVID19 Vaccination Gaudencio: NONE Third COVID19 Vaccination Date: NONE Seasonal Allergies Seasonal Allergies: Yes (USE INHALER) Past Medical History Surgery/Hospitalization HX: icd mdt to left chest-DEFIBRILLATOR; CHF; Substance abuse, CVA Surgeries: Yes (CARDIAC CATH 11/2019--NO INTERVENTION;ICD/DEFIBRILLATOR 06/04/20) Cardiac, Defibrillator Respiratory: Yes Asthma Currently Using CPAP: No Currently Using BIPAP: No Cardiac: Yes (CHF-NEEDS LIFEVEST/REFUSES TO WEAR;NSTEMI;EF10%;LBBB;DEFIBRILLA TOR 06/04/20) Cardiomyopathy, Chronic Edema/Swelling, Heart Attack, High Cholesterol, Hypertension Neurological: Yes Stroke Sexually Transmitted Disease: Yes (CHLAMYDIA; GONORRHEA 10/05/19) HIV/AIDS: No Genitourinary: No Gastrointestinal: No Musculoskeletal: No Endocrine: No HEENT: No Cancer: No Psychosocial: Yes (SUBSTANCE ABUSE-SOBER FOR 4 MONTHS) Integumentary: No Blood Disorders: No Adverse Reaction/Blood Tranf: No (N/A) Family Medical History Asthma AUNT Hypertension MOTHER No Pertinent Family Hx HAS BEEN OUT OF ALF SINCE 2019 VERY NON-COMPLIANT IN ALL ASPECTS OF CARE NEEDS LIFE VEST-=-REFUSES TO WEAR; NSTEMI; EF 10%; LBBB ICD/DEFIBRILLATOR PLACED BY DR. MAGDALENO 06/04/20 SOCIAL HISTORY: -ETOH-RARELY USES -DRUGS--METH, COCAINE, THC. DENIES IV USE-STATES HE SMOKES THEM -NO TOBACCO PAST SURGICAL HISTORY: -CARDIAC CATH 11/2019--NO INTERVENTION -ICD DEFIBRILLATOR PLACED 06/04/[address] MAGDALENO ECHOCARDIOGRAM 05/17/2020 Physical Exam Vital Signs Vital Signs - First Documented 02/03/23 20:52 Temp 36.0 Pulse 102 Resp 20 B/P (MAP) 118/86 (97) Pulse Ox 93 O2 Delivery Room Air Capillary Refill : Less Than 3 Seconds Height, Weight, BMI Height: '" Weight: lbs. oz. kg; 28.00 BMI Method: General Appearance: Moderate Distress HEENT: PERRL/EOMI, Normal ENT Inspection Neck: Full Range of Motion, Normal Inspection Respiratory: Chest Non Tender, Lungs Clear, Normal Breath Sounds Cardiovascular: Regular Rate, Rhythm, No Edema Gastrointestinal: Abnormal Bowel Sounds, Distended, Tenderness (Periumbilical) Back: Normal Inspection, No CVA Tenderness, No Vertebral Tenderness Neurologic/Psychiatric: Alert, Oriented x3 Progress/Results/Core Measures Suspected Sepsis SIRS Temperature: Pulse: 102 Respiratory Rate: 20 Laboratory Tests 02/03/23 21:07: White Blood Count 6.5 Blood Pressure 118 /86 Mean: 97 Laboratory Tests 02/03/23 21:07: Creatinine 1.43H, Platelet Count 145, Total Bilirubin 3.2H Results/Orders Lab Results Laboratory Tests Test 02/03/23 21:00 02/03/23 21:07 Range/Units Urine Opiates Screen POSITIVE H NEGATIVE Urine Oxycodone Screen NEGATIVE NEGATIVE Urine Methadone Screen NEGATIVE NEGATIVE Urine Barbiturates Screen NEGATIVE NEGATIVE Ur Tricyclic Antidepressants Screen NEGATIVE NEGATIVE Urine Phencyclidine Screen NEGATIVE NEGATIVE Urine Amphetamines Screen NEGATIVE NEGATIVE Urine Methamphetamines Screen NEGATIVE NEGATIVE Urine Benzodiazepines Screen NEGATIVE NEGATIVE Urine Cocaine Screen POSITIVE H NEGATIVE Urine Cannabinoids Screen NEGATIVE NEGATIVE White Blood Count 6.5 4.3-11.0 10^3/uL Red Blood Count 4.37 4.30-5.52 10^6/uL Hemoglobin 13.5 13.3-17.7 g/dL Hematocrit 42 40-54 % Mean Corpuscular Volume 96 80-99 fL Mean Corpuscular Hemoglobin 31 25-34 pg Mean Corpuscular Hemoglobin Concent 32 32-36 g/dL Red Cell Distribution Width 15.9 H 10.0-14.5 % Platelet Count 145 130-400 10^3/uL Mean Platelet Volume 10.8 9.0-12.2 fL Immature Granulocyte % (Auto) 0 % Neutrophils (%) (Auto) 82 H 42-75 % Lymphocytes (%) (Auto) 10 L 12-44 % Monocytes (%) (Auto) 7 0-12 % Eosinophils (%) (Auto) 1 0-10 % Basophils (%) (Auto) 1 0-10 % Neutrophils # (Auto) 5.3 1.8-7.8 10^3/uL Lymphocytes # (Auto) 0.7 L 1.0-4.0 10^3/uL Monocytes # (Auto) 0.4 0.0-1.0 10^3/uL Eosinophils # (Auto) 0.0 0.0-0.3 10^3/uL Basophils # (Auto) 0.0 0.0-0.1 10^3/uL Immature Granulocyte # (Auto) 0.0 0.0-0.1 10^3/uL Sodium Level 132 L 135-145 MMOL/L Potassium Level 4.2 3.6-5.0 MMOL/L Chloride Level 95 L 98-107 MMOL/L Carbon Dioxide Level 25 21-32 MMOL/L Anion Gap 12 5-14 MMOL/L Blood Urea Nitrogen 14 7-18 MG/DL Creatinine 1.43 H 0.60-1.30 MG/DL Estimat Glomerular Filtration Rate 62 BUN/Creatinine Ratio 10 Glucose Level 128 H 70-105 MG/DL Calcium Level 9.7 8.5-10.1 MG/DL Corrected Calcium 9.4 8.5-10.1 MG/DL Magnesium Level 2.0 1.6-2.4 MG/DL Total Bilirubin 3.2 H 0.1-1.0 MG/DL Aspartate Amino Transf (AST/SGOT) 58 H 5-34 U/L Alanine Aminotransferase (ALT/SGPT) 26 0-55 U/L Alkaline Phosphatase 257 H 40-136 U/L Total Protein 9.0 H 6.4-8.2 GM/DL Albumin 4.4 3.2-4.5 GM/DL Serum Alcohol < 10 <10 MG/DL Influenza Type A (RT-PCR) Detected H Not Detecte Influenza Type B (RT-PCR) Not Detected Not Detecte SARS-CoV-2 RNA (RT-PCR) Not Detected Not Detecte My Orders Orders - MELLO CONLEY MD Drug Screen Stat (Urine) (02/03/23 21:12) Ua Culture If Indicated (02/03/23 21:12) Influenza A And B By Pcr (02/03/23 21:12) Covid 19 Inhouse Test (02/03/23 21:12) Ondansetron Injection (Ondansetron Inj (02/03/23 21:15) Ct Abdomen/Pelvis W (02/03/23 21:43) Cbc And Automated Diff (02/03/23 21:43) Comprehensive Metabolic Panel (02/03/23 21:43) Magnesium (02/03/23 21:43) Ed Iv/Invasive Line Start (02/03/23 21:44) Ns Iv 1000 Ml (Ns Iv 1000 Ml) (02/03/23 21:45) Promethazine Injection (Promethazine I (02/03/23 21:44) Promethazine Injection (Promethazine I (02/03/23 22:14) Ns Iv 1000 Ml (Ns Iv 1000 Ml) (02/03/23 22:15) Alcohol (02/03/23 22:47) Medications Given in ED Current Medications Medications Dose Ordered Sig/Nelly Route Start Time Stop Time Status Last Admin Dose Admin Ondansetron HCl 4 mg ONCE ONCE IVP 02/03/23 21:15 02/03/23 21:16 DC 02/03/23 21:23 4 MG Vital Signs/I&O 02/03/23 20:52 Temp 36.0 Pulse 102 Resp 20 B/P (MAP) 118/86 (97) Pulse Ox 93 O2 Delivery Room Air Capillary Refill : Less Than 3 Seconds Blood Pressure Mean: 97 Progress Note : Progress Note 1. INFLUENZA A: - COVID test: negative - Rapid flu test positive for Influenza A - Tamiflu bid for 5 days. Dispensed from ER. 2. ABDOMINAL DISTENSION WITH VOMITING: ACUTE VIRAL COLITIS &COCAINE ABUSE/ DEHYDRATION & LIA - CT ABD & PELVIS: Colitis - UA: did not have enough urine sample to run this - UDS: positive fof cocaine and opioids. Pt is on hydrocodone post surgery - CBC/ CMP: WBC is normal. Creatinine is 1.43, AST elevated and bilirubin is 3.2, elevated - NS IVF bolus/ Zofran 4mg iv/ Compazine 10mg iv STAT. Pt's retching has resolved with this. - Pt already has a Zofran prescription from the walk-in clinic. - Follow up with PCP adn general surgery clinic ( Dr. Torres) for post-surgical follow up within 3 to 7 days - Adequate hydration advised -The patient was seen in the ED, and treated appropriately to presentation at a specific point in time. Patient is informed that there is a possibility that disease and illness can evolve and change in acuity rapidly or slowly after patient is discharged from the ER. Precautionary advice given to the patient for immediate return to ER if symptoms worsen or do not resolve, and to seek emergency care sooner rather than later. Pt also advised on the importance of PCP follow up and compliance with management and follow up plan with PCP and/or specialist, as this is part of the management plan. Pt verbally expressed understanding. Departure Impression Primary Impression: Influenza A Additional Impression: Acute colitis Disposition: 01 HOME, SELF-CARE Condition: Improved Departure-Patient Inst. Referrals: [facility] (PCP/Family) Primary Care Physician Patient Instructions: Flu, Adult ED, Colitis Add. Discharge Instructions: - Tamiflu bid for 5 days. Dispensed from ER.. - Pt already has a Zofran prescription from the walk-in clinic. - Follow up with PCP and general surgery clinic ( Dr. Torres) for post-surgical follow up within 3 to 7 days - Adequate hydration advised All discharge instructions reviewed with patient and/or family. Voiced understanding. MELLO CONLEY MD Feb 03, 2023 21:37
[2023-02-03] MEDS ORDERED: PROMETHAZINE INJ 25 MG/ML VIAL IVP STA (21:44)
[2023-02-03 21:45] LABS: AMPHETAMINE SCREEN, URINE NEGATIVE (NEGATIVE); BARBITURATE SCREEN URINE NEGATIVE (NEGATIVE); CANNABINOID SCREEN, URINE NEGATIVE (NEGATIVE); COCAINE SCREEN URINE POSITIVE (NEGATIVE); METHADONE STAT NEGATIVE (NEGATIVE); OPIATE SCREEN URINE POSITIVE (NEGATIVE); OXYCODONE STAT NEGATIVE (NEGATIVE); TRICYCLIC ANTIDEPRESSANTS SCRE NEGATIVE (NEGATIVE)
[2023-02-03] MEDS ORDERED: NS IV 1000 ML 1,000 ML IV SCH (21:45)
[2023-02-03 21:55] LABS: BASOPHILS % (AUTO) 1 % (0-10); EOSINOPHILS % (AUTO) 1 % (0-10); HEMATOCRIT 42 % (40-54); HEMOGLOBIN 13.5 g/dL (13.3-17.7); LYMPHOCYTES # (AUTO) 0.7 10^3/uL (1.0-4.0); LYMPHOCYTES % (AUTO) 10 % (12-44); MEAN CORPUSCULAR HEMOGLOBIN 31 pg (25-34); MEAN CORPUSCULAR HGB CONC 32 g/dL (32-36); MEAN CORPUSCULAR VOLUME 96 fL (80-99); MEAN PLATELET VOLUME 10.8 fL (9.0-12.2); MONOCYTES # (AUTO) 0.4 10^3/uL (0.0-1.0); MONOCYTES % (AUTO) 7 % (0-12); NEUTROPHILS # (AUTO) 5.3 10^3/uL (1.8-7.8); NEUTROPHILS % (AUTO) 82 % (42-75); PLATELET COUNT 145 10^3/uL (130-400); WHITE BLOOD COUNT 6.5 10^3/uL (4.3-11.0)
[2023-02-03 22:02] LABS: POTASSIUM 4.2 MMOL/L (3.6-5.0)
[2023-02-03 22:09] LABS: ALBUMIN 4.4 GM/DL (3.2-4.5); BILIRUBIN,TOTAL 3.2 MG/DL (0.1-1.0); CALCIUM 9.7 MG/DL (8.5-10.1); CREATININE SERUM 1.43 MG/DL (0.60-1.30)
[2023-02-03] MEDS ORDERED: PROMETHAZINE INJ 25 MG/ML VIAL ONE (22:14)
[2023-02-03] MEDS ORDERED: NS IV 1000 ML 1,000 ML ONE (22:15)
[2023-02-03] MEDS ORDERED: RX-OSELTAMIVIR 75 MG (TAMIFLU) BOX OF 10 PO STA (23:16)
[2023-02-03] MEDS ORDERED: OSEL75CA15 PO (23:23)
[2023-02-03 23:38] VITALS: BP 121/82
--- NOTE | 2023-02-04 07:41 | Diagnostic Imaging Report ---
Clinical indications: Patient with periumbilical pain/distention, status post hernia repair. Patient positive for influenza A and has had vomiting x2 days. Exam: Axial CT scan of the abdomen and pelvis performed with 80 mL of Omnipaque 350 IV contrast. Sagittal and coronal reformatted images were created. Auto Exposure Controls were utilized during the CT exam to meet ALARA standards for radiation dose reduction. Comparisons: CT scan of the abdomen and pelvis with contrast dated 12/21/2021. Findings: There is motion artifact limiting evaluation of the intra-abdominal and pelvic structures. There is interval development of patchy infiltrates involving the left lung base concerning for pneumonia. Bones show no significant abnormality. There is significant cardiomegaly again noted. Cardiac pacemaker/AICD is partially visualized and was also noted on the prior study. Pericardial effusion is again noted. There is enlargement of the IVC and hepatic veins and enlargement of the right atrium which is noted on the prior study. Liver is stable with no significant interval abnormality. The spleen and pancreas are unremarkable. Adrenal glands are stable with enhancement noted. The gallbladder is decompressed and not well-delineated on this exam. There appears to be bowel wall thickening. There is no high-density stones seen. There are no dilated ducts. Motion artifact limits evaluation for fat stranding in the upper abdominal region. Stable small cyst involving the inferior aspect of the left kidney. Otherwise, both kidneys are grossly unremarkable, as visualized. Motion artifact limits evaluation for subtle kidney parenchymal abnormalities. There is no hydroureteronephrosis. The bladder is decompressed with wall thickening. The patient was noted to have bladder wall thickening on the prior study. The appendix is not visualized on this exam and may be obscured by closely adjacent intestinal structures. There is a minimal amount of free fluid within the abdomen which is stable compared to the prior study. There is slight increased fluid in the lower anterior pelvic region and near the region of the proximal right inguinal canal. There is no intra-abdominal free air. There are multiple prominent vessels in the right and left sides of the pelvis again noted. There is no intestinal obstruction. There is a moderate amount of stool in the sigmoid colon region. There is anasarca again seen. IMPRESSION: 1: There is motion artifact limiting evaluation of the intra-abdominal and pelvic structures. 2: There has been interval development of patchy infiltrate involving the left lung base concerning for pneumonia. 3: There is no definitive acute abdominal or pelvic process. There is no intestinal obstruction. 4: There is a small amount of fluid throughout the abdomen which has not majorly changed in the interim. There is slight increased small amount of fluid localizing the lower anterior abdominal region and near the proximal right inguinal canal region. 5: There is nonspecific wall thickening involving the bladder. This was also seen on the prior study. Cystitis should be excluded. 6: Cardiomegaly and pericardial effusion is again noted. 7: The remainder of this exam shows no significant interval change compared to the prior study of comparison. Dictated by: Dictated on workstation # [id number]
== END 2023-02-03 23:38 | disposition home or self-care (01) ==
LOC: EDUNIT# 20:50 → ER FS 20:51
DX: J10.2 Influenza due to other identified influenza virus with gastrointestinal manifestations (principal); K52.9 Noninfective gastroenteritis and colitis, unspecified; Z28.310 Unvaccinated for COVID-19
CPT/HCPCS: 36415; 74177; 80053; 80306; 83735; 85025; 87636; 99284; G0480; 80320